=== PATIENT | male | born 1960 | race Caucasian/White ===

== ENCOUNTER → 2017-04-17 | Outpatient (CLI) | payer OTHER ==
[2017-01-07 09:04] VITALS: BP 167/92
[~2017-04-17] MED LIST: AMLO10TA2 PO; ATEN25TA PO; ATOR20TA58 PO; BIOF1TAB7 PO; DICL100G18 TP; DOCU-109 PO; DULO60CA6 PO; INSU100I13 SQ; INSU100I17 SQ; INSU100I27 SQ; LIDO700A4 TP; LORA-434 PO; MULT-245 PO; OMEG1CAP6 PO; OMEP20TA63 PO; OXYC20TA PO; PROAIR HFA8.5 GM IH; SITA50TA PO; TIZA4TAB PO; VENTOLIN HFA18 GM IH; ZOLP10TA4 PO
--- NOTE | 2017-04-17 13:36 | KCIC ---
MRI Lumbar Spine without contrast History: Chronic low back pain with bilateral sciatica, previous surgery, history of renal cancer Technique: Multiplanar, multi sequential noncontrast MR imaging was performed of the lumbar spine. Contrast: None Comparison: December 29, 2015 Findings: Lumbar vertebral body stature and AP alignment are unchanged. Conus again terminates at T12-L1. There is again mild disc desiccation greatest at L3-4 and L4-5. There is again large focus of marrow signal abnormality of the L2 vertebral body eccentric to the right, variably hyperintense on all sequences with associated trabecular thickening, overall features most compatible with a hemangioma. There is a small focus of edema of the anterior, superior right L3 endplate not present previously. L2-L3: Neural foramina and spinal canal are adequate. There is again negligible disc osteophyte complex and bulge. L3-L4: There is a minimal disc osteophyte complex and bulge, also shallow protrusion in the inferior left neural foramen and proximal left extraforaminal region. There is mild buckling of the ligamentum flavum. There is again mild narrowing of the far left lateral recess. There is overall mild narrowing of the inferior left neural foramen, disc osteophyte complex contacting the undersurface of the proximal extraforaminal left L3 nerve root without displacement. There is also mild narrowing of the right neural foramen with disc osteophyte complex again near the extraforaminal right L3 nerve root without significant displacement. L4-L5: There is now left laminectomy defect. There is minimal disc osteophyte complex and bulge. Spinal canal is now overall adequate. There is fairly severe narrowing of the left neural foramen by disc osteophyte complex as well as facet hypertrophic change, contact of the exiting left L4 nerve root. Disc osteophyte complex is also near the extraforaminal left L4 nerve root. There is moderate narrowing of the right neural foramen, disc osteophyte complex also near the undersurface of the extraforaminal right L4 nerve root without significant displacement. L5-S1: Spinal canal is adequate. There is very minimal disc osteophyte complex in the inferior left neural foramen. Neural foramina are overall adequate. There is mild facet hypertrophic change on the right. Impression: 1. There has been interval left laminectomy L4-5, spinal canal now overall adequate at this level. There is again mild narrowing of the far left lateral recess at L3-4. 2. There is left greater than right L4-5 neural foramina compromise, minimal narrowing bilaterally at L3-4. 3. There is multilevel lumbar facet degenerative change. 4. There is again a large hemangioma of the right L2 vertebral body. Just anteriorly, there is now small focus of nonspecific marrow edema although more likely to be reactive/degenerative in etiology given location along the endplate. Electronically signed by: Luis Carlos Mccall MD (04/17/2017 1:33 PM) [facility]
== END | disposition home or self-care (01) ==
LOC: KCIC MRI 12:12
PROVIDERS: ATTEND Family Medicine
DX: M54.42 Lumbago with sciatica, left side (principal); M54.41 Lumbago with sciatica, right side; D18.00 Hemangioma unspecified site; G89.29 Other chronic pain; Z85.528 Personal history of other malignant neoplasm of kidney
CPT/HCPCS: 72148

== ENCOUNTER 2018-01-05 14:57 | Emergency (ER) | payer MEDICARE, OTHER | END 2018-01-05 16:12 | disposition home or self-care (01) | LOC: ER 14:57 | DX: E11.649 Type 2 diabetes mellitus with hypoglycemia without coma (principal); E11.40 Type 2 diabetes mellitus with diabetic neuropathy, unspecified; E78.00 Pure hypercholesterolemia, unspecified; I10 Essential (primary) hypertension; Z88.1 Allergy status to other antibiotic agents; Z88.5 Allergy status to narcotic agent; Z88.8 Allergy status to other drugs, medicaments and biological substances | CPT/HCPCS: 99283 ==

== ENCOUNTER 2018-11-03 12:47 | Emergency (ER) | payer OTHER, MEDICARE ==
[~2018-11-03] VITALS: Ht 180.3 cm; Wt 111.6 kg
[~2018-11-03 12:47] MED LIST changes: +ALBU2.5V8 IH; -AMLO10TA2 PO; +AMLO10TA8 PO; +AMOX1TAB11 PO; +INSU100I32 SQ; +MONT10TA9 PO; +POLY17PO29 PO; -PROAIR HFA8.5 GM IH
[2018-11-03] MEDS ORDERED: diphenhydrAMINE 50 MG/ML VIAL IVP ONE (13:15)
[2018-11-03] MEDS ORDERED: METOCLOPRAMIDE HCL 10 MG/2 ML VIAL. IV ONE (13:15)
[2018-11-03] MEDS ORDERED: KETOROLAC 30 MG/ML VIAL. IV ONE (13:15)
[2018-11-03] MEDS ORDERED: IV DEXTROSE 5%-LACT RINGERS 1,000 ML IV ONE (13:15)
[2018-11-03 14:26] LABS: BASO % 0 % (0-3); EOS % 1 % (0-3); HEMATOCRIT 41.8 % (39.0-53.0); HEMOGLOBIN 13.9 g/dL (13.0-17.5); LYMPH # 0.9 x10^3/uL (1.0-4.8); LYMPH % 11 % (24-48); MEAN CORPUSCULAR HEMOGLOBIN 30 pg (25-35); MEAN CORPUSCULAR HGB CONC 33 g/dL (31-37); MEAN CORPUSCULAR VOLUME 90 fL (79-100); MONO # 0.4 x10^3/uL (0.0-1.1); MONO % 5 % (0-9); NEUT # 6.9 x10^3uL (1.8-7.7); NEUT % 83 % (31-73); PLATELET COUNT 217 x10^3/uL (140-400); RED BLOOD COUNT 4.64 x10^6/uL (4.30-5.70); RED CELL DISTRIBUTION WIDTH 14.8 % (11.5-14.5); WHITE BLOOD COUNT 8.3 x10^3/uL (4.0-11.0)
[2018-11-03 14:39] LABS: CALCIUM 8.8 mg/dL (8.5-10.1); CREATININE 1.6 mg/dL (0.7-1.3); GFR 44.5
[2018-11-03 14:44] LABS: ALBUMIN 3.6 g/dL (3.4-5.0); ALBUMIN/GLOBULIN RATIO 0.9 (1.0-1.7); TOTAL BILIRUBIN 0.6 mg/dL (0.2-1.0); TOTAL PROTEIN 7.6 g/dL (6.4-8.2)
[2018-11-03 14:53] VITALS: BP 153/74
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
[2018-11-03] MEDS ORDERED: METO10TA81 PO (15:03)
== END 2018-11-03 15:16 | disposition home or self-care (01) ==
LOC: ER 12:47
DX: G43.909 Migraine, unspecified, not intractable, without status migrainosus (principal); E11.649 Type 2 diabetes mellitus with hypoglycemia without coma; R41.0 Disorientation, unspecified; I10 Essential (primary) hypertension; E11.40 Type 2 diabetes mellitus with diabetic neuropathy, unspecified; Z90.89 Acquired absence of other organs; Z90.5 Acquired absence of kidney; Z88.1 Allergy status to other antibiotic agents; Z88.5 Allergy status to narcotic agent; Z88.8 Allergy status to other drugs, medicaments and biological substances; V43.52XA Car driver injured in collision with other type car in traffic accident, initial encounter; Y93.89 Activity, other specified; Y92.410 Unspecified street and highway as the place of occurrence of the external cause; Y99.8 Other external cause status
CPT/HCPCS: 36415; 80053; 82962; 85025; 96361; 96374; 96375; 99283; J1200; J1885; J2765

== ENCOUNTER 2020-03-15 19:07 | Inpatient (IN) | payer MEDICARE ==
[~2020-03-15] VITALS: Ht 175.3 cm; Wt 81.9 kg
[~2020-03-15 19:07] MED LIST changes: -DICL100G18 TP; +DICL100G54 TP; +METO10TA81 PO; +MONT10TA49 PO; -MONT10TA9 PO; -TIZA4TAB PO; +TIZA4TAB2 PO
--- NOTE | 2020-03-15 19:20 | PHYS DOC ---
Past Medical History Past Medical History: Bronchitis, Cancer, Diabetes-Type II, High Cholesterol, Hypertension, Other Additional Past Medical Histor: obesity,kidney ca,neuropathy,DDD,IRREG HEART BEAT Past Surgical History: Tonsillectomy, Other Additional Past Surgical Histo: Rt shoulder,carpal tunn,nephrectomy,hernia,nose,elbow,BACK, lt nephrectomy Smoking Status: Never Smoker Alcohol Use: None Drug Use: None General Adult HPI: HPI: Patient is a 59 year old male who presents with altered mental status. Patient's family found him in his room. Patient was found to have blood sugar in the 50s and was incontinent of urine and combative. Family notes progressive decline over the last month or so. Patient is encephalopathic and unable to answer questions. History, physical, review of systems limited by altered mental status. Patient given glucagon prior to arrival and blood sugar improved from 55-83 Review of Systems: Review of Systems: Review of systems unobtainable due to altered mental status. Heart Score: Risk Factors: Risk Factors: DM, Current or recent (<one month) smoker, HTN, HLP, family history of CAD, obesity. Risk Scores: Score 0 - 3: 2.5% MACE over next 6 weeks - Discharge Home Score 4 - 6: 20.3% MACE over next 6 weeks - Admit for Clinical Observation Score 7 - 10: 72.7% MACE over next 6 weeks - Early Invasive Strategies Current Medications: Current Medications Medications (Trade) Dose Ordered Sig/Tory Start Time Stop Time Status Last Admin Dose Admin Diphenhydramine HCl (Benadryl) 50 mg 1X ONCE 03/15/20 19:30 03/15/20 19:31 UNV Haloperidol Lactate (Haldol Inj) 5 mg 1X ONCE 03/15/20 19:30 03/15/20 19:31 UNV Lorazepam (Ativan Inj) 1 mg 1X ONCE 03/15/20 19:30 03/15/20 19:31 UNV Allergies: Allergies: Allergies Coded Allergies Type Severity Reaction Last Updated Verified clindamycin Allergy Intermediate 02/17/16 Yes levofloxacin Allergy Intermediate 01/06/17 Yes morphine Allergy Intermediate 02/17/16 Yes prednisone Allergy Intermediate 01/06/17 Yes pramipexole Adverse Reaction Intermediate 02/17/16 Yes Physical Exam: PE: Constitutional: Confused, combative, not following commands HENT: No trismus Eyes: Pupils equal and round, extraocular intact Neck: Normal range of motion, no tenderness, supple, no stridor. [] Cardiovascular: Tachycardic, cap refill intact, pulses intact Lungs & Thorax: No respiratory distress Abdomen: No distension : Incontinent of urine Skin: Jaundiced appearing, old bruising to the abdomen Back: Full ROM Extremities: Minimal lower extremity edema. Moves all extremities Neurologic: Oriented x0, moves all extremities, does not follow commands. Psychologic: Unable to assess due to altered mental status History, physical, review of systems limited by altered mental status Current Patient Data: Labs: Laboratory Tests Test 03/15/20 19:36 03/15/20 20:17 03/15/20 20:50 03/15/20 21:30 Glucose (Fingerstick) 85 mg/dL 80 mg/dL 62 mg/dL White Blood Count 17.2 x10^3/uL Red Blood Count 2.73 x10^6/uL Hemoglobin 8.2 g/dL Hematocrit 23.4 % Mean Corpuscular Volume 86 fL Mean Corpuscular Hemoglobin 30 pg Mean Corpuscular Hemoglobin Concent 35 g/dL Red Cell Distribution Width 16.9 % Platelet Count 244 x10^3/uL Neutrophils (%) (Auto) 97 % Lymphocytes (%) (Auto) 2 % Monocytes (%) (Auto) 2 % Eosinophils (%) (Auto) 0 % Basophils (%) (Auto) 0 % Neutrophils # (Auto) 16.6 x10^3/uL Lymphocytes # (Auto) 0.3 x10^3/uL Monocytes # (Auto) 0.3 x10^3/uL Eosinophils # (Auto) 0.0 x10^3/uL Basophils # (Auto) 0.0 x10^3/uL Segmented Neutrophils % 66 % Band Neutrophils % 23 % Lymphocytes % 9 % Monocytes % 2 % Toxic Vacuolation Slight Dohle Bodies Few Platelet Estimate Adequate Prothrombin Time 16.0 SEC Prothromb Time International Ratio 1.3 Activated Partial Thromboplast Time 32 SEC Sodium Level 123 mmol/L Potassium Level 4.7 mmol/L Chloride Level 87 mmol/L Carbon Dioxide Level 22 mmol/L Anion Gap 14 Blood Urea Nitrogen 49 mg/dL Creatinine 3.4 mg/dL Estimated GFR (Cockcroft-Gault) 18.6 BUN/Creatinine Ratio 14 Glucose Level 97 mg/dL Lactic Acid Level 3.8 mmol/L Calcium Level 7.7 mg/dL Magnesium Level 1.7 mg/dL Total Bilirubin 1.2 mg/dL Aspartate Amino Transf (AST/SGOT) 84 U/L Alanine Aminotransferase (ALT/SGPT) 66 U/L Alkaline Phosphatase 228 U/L Ammonia < 10 mcmol/L Creatine Kinase 129 U/L Troponin I Quantitative 0.052 ng/mL YN-Tia-V-Type Natriuretic Peptide 46567 pg/mL Total Protein 5.4 g/dL Albumin 1.7 g/dL Albumin/Globulin Ratio 0.5 Urine Collection Type U cath Urine Color Yellow Urine Clarity Cloudy Urine pH 5.0 Urine Specific [place] 1.010 Urine Protein 30 mg/dL Urine Glucose (UA) Negative mg/dL Urine Ketones (Stick) Negative mg/dL Urine Blood Trace Urine Nitrite Negative Urine Bilirubin Large Urine Urobilinogen Dipstick 1.0 mg/dL Urine Leukocyte Esterase Negative Urine RBC Occ /HPF Urine WBC Occ /HPF Urine Squamous Epithelial Cells Occ /LPF Urine Amorphous Sediment Present /HPF Urine Bacteria Few /HPF Urine Opiates Screen Neg Urine Methadone Screen Neg Urine Barbiturates Neg Urine Phencyclidine Screen Neg Urine Amphetamine/Methamphetamine Neg Urine Benzodiazepines Screen Neg Urine Cocaine Screen Neg Urine Cannabinoids Screen Neg Urine Ethyl Alcohol Neg Current Medications Medications (Trade) Dose Ordered Sig/Tory Route PRN Reason Start Time Stop Time Status Last Admin Dose Admin Haloperidol Lactate (Haldol Inj) 5 mg 1X ONCE IM 03/15/20 20:00 03/15/20 20:01 DC 03/15/20 19:30 Diphenhydramine HCl (Benadryl) 50 mg 1X ONCE IM 03/15/20 20:00 03/15/20 20:01 DC 03/15/20 19:30 Lorazepam (Ativan Inj) 1 mg 1X ONCE IVP 03/15/20 20:00 03/15/20 20:01 DC 03/15/20 20:55 Dextrose (Dextrose 50%-Water Syringe) 25 gm 1X ONCE IV 03/15/20 21:30 03/15/20 21:23 DC Dextrose 1,000 ml @ 75 mls/hr 1X ONCE IV 03/15/20 21:30 03/15/20 21:23 DC 03/15/20 21:03 Sodium Chloride 154 meq/Dextrose 1,038.5 ml @ 75 mls/hr [id number] IV 03/15/20 22:00 03/16/20 21:59 03/15/20 22:12 Ceftriaxone Sodium (Rocephin) 2 gm 1X ONCE IVP 03/15/20 22:00 03/15/20 22:01 DC Ondansetron HCl (Zofran) 4 mg PRN Q8HRS PRN IV NAUSEA/VOMITING 1ST CHOICE 03/15/20 21:30 03/16/20 21:29 Vital Signs: Vital Signs Date Time Temp Pulse Resp B/P (MAP) Pulse Ox O2 Delivery O2 Flow Rate FiO2 03/15/20 19:08 97.4 103 20 153/74 (100) 98 Room Air 97.4 EKG: EKG: [] EKG interpreted by me normal sinus rhythm with a rate of 96 left axis deviation normal intervals, inverted T waves in the lateral leads Radiology/Procedures: Radiology/Procedures: [][address] [id number] IMAGING REPORT Signed PATIENT: LASHAY MARQUEZ ACCOUNT: [id number] : 1960 LOCATION: ER AGE: 59 SEX: M EXAM STATUS: REG ER ORD. PHYSICIAN: CHARY KOEHLER MD REASON: AMS PROCEDURE: PORTABLE CHEST 1V Examination: PORTABLE CHEST 1V History: Reason: AMS / Spl. Instructions: / History: Comparison/Correlation: 01/06/2017 AP view of the chest Findings: Upright portable frontal view of chest was obtained. Limited pulmonary inflation noted. Heart size is mildly enlarged. Pulmonary vasculature is mildly congested. No pneumothorax. No definite effusion. Postoperative changes of proximal right humerus are partially seen. Impression: Mild congestive heart failure suspected. No focal infiltrate. Electronically signed by: Raciel Kwok MD (03/15/2020 8:27 PM) [facility] DICTATED and SIGNED BY: RACIEL KWOK MD DATE: 03/15/202026 [address] [id number] IMAGING REPORT Signed PATIENT: ALMATRELL MUROMATIAS Al ACCOUNT: [id number] : 1960 LOCATION: ER AGE: 59 SEX: M EXAM STATUS: REG ER ORD. PHYSICIAN: CHARY KOEHLER MD REASON: AMS PROCEDURE: CT HEAD WO CONTRAST EXAM: CT Head without IV contrast CLINICAL HISTORY: Altered mental status COMPARISON: None. TECHNIQUE: Routine CT of the head without contrast. Soft tissues and bone windows were reviewed. PQRS compliance statement - One or more of the following individualized dose reduction techniques were utilized for this study: 1. Automated exposure control 2. Adjustment of the mA and/or kV according to patient size 3. Use of iterative reconstruction technique FINDINGS: There is no evidence of hemorrhage, mass or extra-axial fluid collection. Price-white differentiation is maintained with no evidence of edema. A few subcortical and periventricular foci of white matter hypoattenuation likely changes of chronic small vessel disease. There is no mass effect or shift of the intracranial structures. There is prominence of the ventricles and sulci bilaterally consistent with generalized atrophy. The cerebellum and brainstem are unremarkable. The calvarium demonstrates no evidence of fracture or focal lesion. There is normal aeration of the visualized paranasal sinuses and mastoid air cells. The visualized portions of the orbits are normal. IMPRESSION: No evidence for acute intracranial process. Electronically signed by: Hieu Huerta MD (03/15/2020 8:48 PM) [facility] Course & Med Decision Making: Course & Med Decision Making Pertinent Labs and Imaging studies reviewed. (See chart for details) [] 2050 reassessment. Patient altered. Blood sugar 62. Initially D50 on a D10 drip was ordered. One sodium came back I switched over to a D10 normal saline drip at 75 cc an hour. Patient will be admitted to Dr. Adams I discussed the case with him. Consult with Dr. Manuel for renal management. 59-year-old male presents with hypoglycemia and altered mental status. Patient quite combative on arrival. Patient had to be placed in physical restraints. Patient medicated for his agitation. Examined after restraints and much calmer. No signs of injury. Patient's head CT is unremarkable. Patient does have significant hyponatremia and renal insufficiency. Patient also found to have CHF on x-ray. Patient's lactic acid elevation was likely due to liver disease as well as seizure. I feel due to his hyponatremia and CHF that aggressive septic fluid management would be extremely detrimental to this patient. Patient is placed on D10 NS at 75 cc/h. Patient will be admitted to the ICU with a nephrology consult. Critical care time was [40] minutes exclusive of procedures. Critical care time was [40] minutes which includes time at bedside, spent in discussion of patient's care with specialist and/or family members, with interpretation of laboratory and/or radiological studies and is exclusive of procedures. Critical condition, hyponatremia, seizure, hypoglycemia Critical interventions: D10 normal saline drip, dextrose replacement, antibiotics, admission ICU with consults with nephrology. Dragon Disclaimer: Dragon Disclaimer: This electronic medical record was generated, in whole or in part, using a voice recognition dictation system. Departure Departure Impression: Primary Impression: Hyponatremia Additional Impressions: Hypoglycemia Seizure Acute kidney injury Encephalopathy Disposition: ADMITTED INPATIENT Admitting Physician: DANIEL ([facility]) Condition: GUARDED Referrals: MARILOU LOPEZ MD (PCP) Justicifation of Admission Dx: Justifications for Admission: Justification of Admission Dx: Yes CHARY KOEHLER MD Mar 15, 2020 19:20
[2020-03-15] MEDS ORDERED: diphenhydrAMINE 50 MG/ML VIAL IM ONE (20:00)
[2020-03-15] MEDS ORDERED: HALOPERIDOL LACTATE 5 MG/ML VIAL. IM ONE (20:00)
--- NOTE | 2020-03-15 20:06 | EKG ---
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
[2020-03-15 20:29] LABS: BASO % 0 % (0-3); EOS % 0 % (0-3); HEMATOCRIT 23.4 % (39.0-53.0); HEMOGLOBIN 8.2 g/dL (13.0-17.5); LYMPH # 0.3 x10^3/uL (1.0-4.8); LYMPH % 2 % (24-48); MEAN CORPUSCULAR HEMOGLOBIN 30 pg (25-35); MEAN CORPUSCULAR HGB CONC 35 g/dL (31-37); MEAN CORPUSCULAR VOLUME 86 fL (79-100); MONO # 0.3 x10^3/uL (0.0-1.1); MONO % 2 % (0-9); NEUT # 16.6 x10^3/uL (1.8-7.7); NEUT % 97 % (31-73); PLATELET COUNT 244 x10^3/uL (140-400); RED BLOOD COUNT 2.73 x10^6/uL (4.30-5.70); RED CELL DISTRIBUTION WIDTH 16.9 % (11.5-14.5); WHITE BLOOD COUNT 17.2 x10^3/uL (4.0-11.0)
--- NOTE | 2020-03-15 20:30 | RAD ---
Examination: PORTABLE CHEST 1V History: Reason: AMS / Spl. Instructions: / History: Comparison/Correlation: 01/06/2017 AP view of the chest Findings: Upright portable frontal view of chest was obtained. Limited pulmonary inflation noted. Heart size is mildly enlarged. Pulmonary vasculature is mildly congested. No pneumothorax. No definite effusion. Postoperative changes of proximal right humerus are partially seen. Impression: Mild congestive heart failure suspected. No focal infiltrate. Electronically signed by: Raciel Guthrie MD (03/15/2020 8:27 PM) [facility]
[2020-03-15 20:42] LABS: CALCIUM 7.7 mg/dL (8.5-10.1); CREATININE 3.4 mg/dL (0.7-1.3); GFR 18.6; POTASSIUM 4.7 mmol/L (3.5-5.1)
[2020-03-15 20:48] LABS: ALBUMIN 1.7 g/dL (3.4-5.0); ALBUMIN/GLOBULIN RATIO 0.5 (1.0-1.7); MAGNESIUM 1.7 mg/dL (1.8-2.4); TOTAL BILIRUBIN 1.2 mg/dL (0.2-1.0); TOTAL PROTEIN 5.4 g/dL (6.4-8.2)
--- NOTE | 2020-03-15 20:51 | RAD ---
EXAM: CT Head without IV contrast CLINICAL HISTORY: Altered mental status COMPARISON: None. TECHNIQUE: Routine CT of the head without contrast. Soft tissues and bone windows were reviewed. PQRS compliance statement - One or more of the following individualized dose reduction techniques were utilized for this study: 1. Automated exposure control 2. Adjustment of the mA and/or kV according to patient size 3. Use of iterative reconstruction technique FINDINGS: There is no evidence of hemorrhage, mass or extra-axial fluid collection. Price-white differentiation is maintained with no evidence of edema. A few subcortical and periventricular foci of white matter hypoattenuation likely changes of chronic small vessel disease. There is no mass effect or shift of the intracranial structures. There is prominence of the ventricles and sulci bilaterally consistent with generalized atrophy. The cerebellum and brainstem are unremarkable. The calvarium demonstrates no evidence of fracture or focal lesion. There is normal aeration of the visualized paranasal sinuses and mastoid air cells. The visualized portions of the orbits are normal. IMPRESSION: No evidence for acute intracranial process. Electronically signed by: Hieu Huerta MD (03/15/2020 8:48 PM) [facility]
[2020-03-15 20:56] LABS: % BANDS 23 % (0-9); % LYMPHS 9 % (24-48); % MONOS 2 % (0-10); % SEGS 66 % (35-66); PLT ESTIMATE ADEQUATE (ADEQUATE); TOXIC VACUOLATION SLIGHT
[2020-03-15] MEDS ORDERED: ONDANSETRON PF 4 MG/2 ML VIAL. IV PRN (21:30)
[2020-03-15] MEDS ORDERED: IV DEXTROSE 10% 1,000 ML IV ONE (21:30)
[2020-03-15] MEDS ORDERED: DEXTROSE 50% 25 GM / 50ML DISP.SYRIN. IV ONE (21:30)
[2020-03-15 21:42] LABS: BILIRUBIN,URINE LARGE (NEG); CLARITY,URINE CLOUDY; COLOR,URINE YELLOW; NITRITE,URINE NEGATIVE (NEG); PROTEIN,URINE 30 mg/dL (NEG-TRACE)
[2020-03-15 21:55] LABS: RBC,URINE OCC /HPF (0-2); WBC,URINE OCC /HPF (0-4)
[2020-03-15 21:56] LABS: AMORPHOUS SEDIMENT,UR PRESENT /HPF; BACTERIA,URINE FEW /HPF (0-FEW); SQUAMOUS EPITHELIAL CELL,UR OCC /LPF
[2020-03-15 21:57] LABS: BARBITURATES NEG (NEG); BENZODIAZEPINES NEG (NEG); CANNABINOIDS NEG (NEG); COCAINE NEG (NEG); METHADONE NEG (NEG); OPIATES NEG (NEG); PHENCYCLIDINE NEG (NEG)
[2020-03-15 21:58] LABS: AMPHETAMINE/METHAMPHETAMINE NEG (NEG)
[2020-03-15] MEDS ORDERED: cefTRIAXone IV Push 1 GM VIAL. IVP ONE (22:00)
[2020-03-15] MEDS: DEXTROSE 10% IV SCH (22:12)
[2020-03-15] MEDS: SODIUM CHLORIDE IV SCH (22:12)
[2020-03-16] VITALS (11 sets, daily range): BP systolic 98–145; BP diastolic 48–80
--- NOTE | 2020-03-16 07:56 | PDOC1 ---
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 She notes he has had a progressive decline over the last month or so. Patient is encephalopathic and unable to answer questions. Patient given glucagon prior to arrival and blood sugar improved from 55-83. notes issues w/ confusion since cholecystectomy at on 12/25/19. notes an IR drain was placed after a readmission for worsening and remained in place for 3 weeks and was removed at the end of January, then he returned for common bile duct stent placement last week. She notes that she was told that he had a "small spot" on his liver at [facility] and that his sodium was "better" at 129 last week. She also notes he has lost 46# in the past 2 months and she is not aware of any diagnosis for him. Patient is not even speaking, he is moaning and writhing in bed. CXR with pulmonary vasculare congestion and CT head negative for acute process. Labs significant for WBC 17.2, Hb 8.2, platelets 244, INR 1.3, Na 123, K 4.7, BUN 49, Cr 3.4, Albumin 1.7, Glucose 97, Mg 1.7, AST 84, ALT 66, Alk phos 228, Bili 1.2. BNP 32697 Admitted to ICU for further care. Past Medical History Cardiovascular: HTN Pulmonary: Bronchitis Musculoskeletal: low back pain Renal/: Renal Ca. Endocrine: Diabetes Past Surgical History Past Surgical History: Cholecystectomy, Hernia Repair, Other Family History Family History: No Significant Social History Smoke: No ALCOHOL: none Drugs: None Current Problem List Problem List Problems Medical Problems: (1) Acute kidney injury Status: Acute (2) Encephalopathy Status: Acute (3) Hypoglycemia Status: Acute (4) Hyponatremia Status: Acute (5) Seizure Status: Acute Current Medications Current Medications Current Medications Haloperidol Lactate (Haldol Inj) 5 mg 1X ONCE IM Last administered on 03/15/20at 19:30; Start 03/15/20 at 20:00; Stop 03/15/20 at 20:01; Status DC Diphenhydramine HCl (Benadryl) 50 mg 1X ONCE IM Last administered on 03/15/20at 19:30; Start 03/15/20 at 20:00; Stop 03/15/20 at 20:01; Status DC Lorazepam (Ativan Inj) 1 mg 1X ONCE IVP Last administered on 03/15/20at 20:55; Start 03/15/20 at 20:00; Stop 03/15/20 at 20:01; Status DC Dextrose (Dextrose 50%-Water Syringe) 25 gm 1X ONCE IV ; Start 03/15/20 at 21:30; Stop 03/15/20 at 21:23; Status DC Dextrose 1,000 ml @ 75 mls/hr 1X ONCE IV Last administered on 03/15/20at 21:03; Start 03/15/20 at 21:30; Stop 03/15/20 at 21:23; Status DC Sodium Chloride 154 meq/Dextrose 1,038.5 ml @ 75 mls/hr [id number] IV Last admini stered on 03/15/20at 22:12; Start 03/15/20 at 22:00; Stop 03/16/20 at 21:59 Ceftriaxone Sodium (Rocephin) 2 gm 1X ONCE IVP Last administered on 03/15/20at 22:36; Start 03/15/20 at 22:00; Stop 03/15/20 at 22:01; Status DC Ondansetron HCl (Zofran) 4 mg PRN Q8HRS PRN IV NAUSEA/VOMITING 1ST CHOICE; Start 03/15/20 at 21:30; Stop 03/16/20 at 21:29 Lorazepam (Ativan Inj) 2 mg 1X ONCE IVP Last administered on 03/15/20at 23:37; Start 03/15/20 at 23:45; Stop 03/15/20 at 23:46; Status DC Lorazepam (Ativan Inj) 1 mg PRN Q4HRS PRN IVP ANXIETY / AGITATION Last administered on 03/16/20at 06:11; Start 03/16/20 at 03:15 Active Scripts Active Reglan (Metoclopramide Hcl) 10 Mg Tablet 1 Tab PO Q8HRS PRN Amox Tr-K Clv 875-125 Mg Tab (Amoxicillin/Potassium Clav) 1 Each Tablet 1 Tab PO BID Miralax (Polyethylene Glycol 3350) 17 Gm Powd.pack 1 Pkt PO PRN DAILY PRN Reported Montelukast Sodium Tablet (Montelukast Sodium) 10 Mg Tablet 10 Mg PO DAILY Basaglar Kwikpen U-100 (Insulin Glargine,Hum.rec.anlog) 100 Unit/1 Ml Insuln.pen 50 Unit SQ HS Prilosec Otc (Omeprazole Magnesium) 20 Mg Tablet.dr 1 Tab PO DAILY Novolog Flexpen (Insulin Aspart) 100 Unit/1 Ml Insuln.pen 1 Unit SQ 15-20 UNITS WITH MEALS TO MAX OF 80 UNITS DAILY Zolpidem Tartrate 10 Mg Tablet 1 Tab PO QHS PRN Atorvastatin Calcium 20 Mg Tablet 1 Tab PO DAILY Januvia (Sitagliptin Phosphate) 50 Mg Tablet 1 Tab PO DAILY Tizanidine Hcl 4 Mg Tablet 1 Tab PO Q6HRS PRN can have 1-2 tabs Lidoderm (Lidocaine) 700 Mg Adh..patch 1 Patch TP DAILY PRN Oxycodone Hcl 20 Mg Tablet 20 Mg PO TID PRN Ativan (Lorazepam) 1 Mg Tablet 1 Mg PO BID PRN Amlodipine Besylate 10 Mg Tablet 10 Mg PO DAILY Atenolol 25 Mg Tablet 1 Tab PO DAILY Voltaren (Diclofenac Sodium) 100 Gm Gel..gram. 1 Gm TP QID PRN Ventolin Hfa Inhaler (Albuterol Sulfate) 18 Gm Hfa.aer.ad 2 Puff IH PRN Q4-6HRS Cymbalta (Duloxetine Hcl) 60 Mg Capsule. 60 Mg PO BID Allergies Allergies: Coded Allergies: clindamycin (Verified Allergy, Intermediate, 02/17/16) levofloxacin (Verified Allergy, Intermediate, 01/06/17) morphine (Verified Allergy, Intermediate, 02/17/16) prednisone (Verified Allergy, Intermediate, 01/06/17) pramipexole (Verified Adverse Reaction, Intermediate, 02/17/16) muscle and joint aches ROS Review of System UNABLE TO OBTAIN DUE TO OBTUNDATION Physical Exam General: Alert, moderate distress, Other (Confused) HEENT: Atraumatic, PERRLA, EOMI, Mucous membr. moist/pink Lungs: Other (Bialteral basilar crackles) Heart: S1S2, RRR, no thrills, no rubs Abdomen: Normal bowel sounds, Soft, No hepatosplenomegaly, No masses, Other (diffusely tender) Male Genitals Exam: normal genitalia Rectal Exam: hemorrhoids Extremities: No clubbing, No cyanosis, No edema, Normal pulses, No tenderness/swelling Skin: No rashes, No breakdown, No significant lesion Neuro: Strength at 5/5 X4 ext, Normal tone, Sensation intact, Cranial nerves 3- 12 NL, Reflexes 2+ Psych/Mental Status: Other (Obtunded) Vitals Vitals Vital Signs Date Time Temp Pulse Resp B/P (MAP) Pulse Ox O2 Delivery O2 Flow Rate FiO2 03/15/20 23:35 24 16 97 03/15/20 19:08 97.4 153/74 (100) Room Air 97.4 Labs Labs Laboratory Tests Test 03/15/20 19:36 03/15/20 20:17 03/15/20 20:50 03/15/20 21:30 Glucose (Fingerstick) 85 mg/dL (70-99) 80 mg/dL (70-99) 62 mg/dL (70-99) White Blood Count 17.2 x10^3/uL (4.0-11.0) Red Blood Count 2.73 x10^6/uL (4.30-5.70) Hemoglobin 8.2 g/dL (13.0-17.5) Hematocrit 23.4 % (39.0-53.0) Mean Corpuscular Volume 86 fL (79-100) Mean Corpuscular Hemoglobin 30 pg (25-35) Mean Corpuscular Hemoglobin Concent 35 g/dL (31-37) Red Cell Distribution Width 16.9 % (11.5-14.5) Platelet Count 244 x10^3/uL (140-400) Neutrophils (%) (Auto) 97 % (31-73) Lymphocytes (%) (Auto) 2 % (24-48) Monocytes (%) (Auto) 2 % (0-9) Eosinophils (%) (Auto) 0 % (0-3) Basophils (%) (Auto) 0 % (0-3) Neutrophils # (Auto) 16.6 x10^3/uL (1.8-7.7) Lymphocytes # (Auto) 0.3 x10^3/uL (1.0-4.8) Monocytes # (Auto) 0.3 x10^3/uL (0.0-1.1) Eosinophils # (Auto) 0.0 x10^3/uL (0.0-0.7) Basophils # (Auto) 0.0 x10^3/uL (0.0-0.2) Segmented Neutrophils % 66 % (35-66) Band Neutrophils % 23 % (0-9) Lymphocytes % 9 % (24-48) Monocytes % 2 % (0-10) Toxic Vacuolation Slight Dohle Bodies Few Platelet Estimate Adequate (ADEQUATE) Prothrombin Time 16.0 SEC (11.7-14.0) Prothromb Time International Ratio 1.3 (0.8-1.1) Activated Partial Thromboplast Time 32 SEC (24-38) Sodium Level 123 mmol/L (136-145) Potassium Level 4.7 mmol/L (3.5-5.1) Chloride Level 87 mmol/L (98-107) Carbon Dioxide Level 22 mmol/L (21-32) Anion Gap 14 (6-14) Blood Urea Nitrogen 49 mg/dL (8-26) Creatinine 3.4 mg/dL (0.7-1.3) Estimated GFR (Cockcroft-Gault) 18.6 BUN/Creatinine Ratio 14 (6-20) Glucose Level 97 mg/dL (70-99) Lactic Acid Level 3.8 mmol/L (0.4-2.0) Calcium Level 7.7 mg/dL (8.5-10.1) Magnesium Level 1.7 mg/dL (1.8-2.4) Total Bilirubin 1.2 mg/dL (0.2-1.0) Aspartate Amino Transf (AST/SGOT) 84 U/L (15-37) Alanine Aminotransferase (ALT/SGPT) 66 U/L (16-63) Alkaline Phosphatase 228 U/L (46-116) Ammonia < 10 mcmol/L (11-34) Creatine Kinase 129 U/L (39-308) Troponin I Quantitative 0.052 ng/mL (0.000-0.055) ZZ-[id number]-X-Type Natriuretic Peptide 44338 pg/mL (0-124) Total Protein 5.4 g/dL (6.4-8.2) Albumin 1.7 g/dL (3.4-5.0) Albumin/Globulin Ratio 0.5 (1.0-1.7) Urine Collection Type U cath Urine Color Yellow Urine Clarity Cloudy Urine pH 5.0 (<5.0-8.0) Urine Specific Causey 1.010 (1.000-1.030) Urine Protein 30 mg/dL (NEG-TRACE) Urine Glucose (UA) Negative mg/dL (NEG) Urine Ketones (Stick) Negative mg/dL (NEG) Urine Blood Trace (NEG) Urine Nitrite Negative (NEG) Urine Bilirubin Large (NEG) Urine Urobilinogen Dipstick 1.0 mg/dL (0.2 mg/dL) Urine Leukocyte Esterase Negative (NEG) Urine RBC Occ /HPF (0-2) Urine WBC Occ /HPF (0-4) Urine Squamous Epithelial Cells Occ /LPF Urine Amorphous Sediment Present /HPF Urine Bacteria Few /HPF (0-FEW) Urine Opiates Screen Neg (NEG) Urine Methadone Screen Neg (NEG) Urine Barbiturates Neg (NEG) Urine Phencyclidine Screen Neg (NEG) Urine Amphetamine/Methamphetamine Neg (NEG) Urine Benzodiazepines Screen Neg (NEG) Urine Cocaine Screen Neg (NEG) Urine Cannabinoids Screen Neg (NEG) Urine Ethyl Alcohol Neg (NEG) Test 03/16/20 00:25 03/16/20 03:33 Lactic Acid Level 1.6 mmol/L (0.4-2.0) Glucose (Fingerstick) 76 mg/dL (70-99) Laboratory Tests Test 03/15/20 19:36 03/15/20 20:17 03/15/20 20:50 03/15/20 21:30 Glucose (Fingerstick) 85 mg/dL (70-99) 80 mg/dL (70-99) 62 mg/dL (70-99) White Blood Count 17.2 x10^3/uL (4.0-11.0) Red Blood Count 2.73 x10^6/uL (4.30-5.70) Hemoglobin 8.2 g/dL (13.0-17.5) Hematocrit 23.4 % (39.0-53.0) Mean Corpuscular Volume 86 fL (79-100) Mean Corpuscular Hemoglobin 30 pg (25-35) Mean Corpuscular Hemoglobin Concent 35 g/dL (31-37) Red Cell Distribution Width 16.9 % (11.5-14.5) Platelet Count 244 x10^3/uL (140-400) Neutrophils (%) (Auto) 97 % (31-73) Lymphocytes (%) (Auto) 2 % (24-48) Monocytes (%) (Auto) 2 % (0-9) Eosinophils (%) (Auto) 0 % (0-3) Basophils (%) (Auto) 0 % (0-3) Neutrophils # (Auto) 16.6 x10^3/uL (1.8-7.7) Lymphocytes # (Auto) 0.3 x10^3/uL (1.0-4.8) Monocytes # (Auto) 0.3 x10^3/uL (0.0-1.1) Eosinophils # (Auto) 0.0 x10^3/uL (0.0-0.7) Basophils # (Auto) 0.0 x10^3/uL (0.0-0.2) Segmented Neutrophils % 66 % (35-66) Band Neutrophils % 23 % (0-9) Lymphocytes % 9 % (24-48) Monocytes % 2 % (0-10) Toxic Vacuolation Slight Dohle Bodies Few Platelet Estimate Adequate (ADEQUATE) Prothrombin Time 16.0 SEC (11.7-14.0) Prothromb Time International Ratio 1.3 (0.8-1.1) Activated Partial Thromboplast Time 32 SEC (24-38) Sodium Level 123 mmol/L (136-145) Potassium Level 4.7 mmol/L (3.5-5.1) Chloride Level 87 mmol/L (98-107) Carbon Dioxide Level 22 mmol/L (21-32) Anion Gap 14 (6-14) Blood Urea Nitrogen 49 mg/dL (8-26) Creatinine 3.4 mg/dL (0.7-1.3) Estimated GFR (Cockcroft-Gault) 18.6 BUN/Creatinine Ratio 14 (6-20) Glucose Level 97 mg/dL (70-99) Lactic Acid Level 3.8 mmol/L (0.4-2.0) Calcium Level 7.7 mg/dL (8.5-10.1) Magnesium Level 1.7 mg/dL (1.8-2.4) Total Bilirubin 1.2 mg/dL (0.2-1.0) Aspartate Amino Transf (AST/SGOT) 84 U/L (15-37) Alanine Aminotransferase (ALT/SGPT) 66 U/L (16-63) Alkaline Phosphatase 228 U/L (46-116) Ammonia < 10 mcmol/L (11-34) Creatine Kinase 129 U/L (39-308) Troponin I Quantitative 0.052 ng/mL (0.000-0.055) [id number]-Type Natriuretic Peptide 76875 pg/mL (0-124) Total Protein 5.4 g/dL (6.4-8.2) Albumin 1.7 g/dL (3.4-5.0) Albumin/Globulin Ratio 0.5 (1.0-1.7) Urine Collection Type U cath Urine Color Yellow Urine Clarity Cloudy Urine pH 5.0 (<5.0-8.0) Urine Specific Causey 1.010 (1.000-1.030) Urine Protein 30 mg/dL (NEG-TRACE) Urine Glucose (UA) Negative mg/dL (NEG) Urine Ketones (Stick) Negative mg/dL (NEG) Urine Blood Trace (NEG) Urine Nitrite Negative (NEG) Urine Bilirubin Large (NEG) Urine Urobilinogen Dipstick 1.0 mg/dL (0.2 mg/dL) Urine Leukocyte Esterase Negative (NEG) Urine RBC Occ /HPF (0-2) Urine WBC Occ /HPF (0-4) Urine Squamous Epithelial Cells Occ /LPF Urine Amorphous Sediment Present /HPF Urine Bacteria Few /HPF (0-FEW) Urine Opiates Screen Neg (NEG) Urine Methadone Screen Neg (NEG) Urine Barbiturates Neg (NEG) Urine Phencyclidine Screen Neg (NEG) Urine Amphetamine/Methamphetamine Neg (NEG) Urine Benzodiazepines Screen Neg (NEG) Urine Cocaine Screen Neg (NEG) Urine Cannabinoids Screen Neg (NEG) Urine Ethyl Alcohol Neg (NEG) Test 03/16/20 00:25 03/16/20 03:33 Lactic Acid Level 1.6 mmol/L (0.4-2.0) Glucose (Fingerstick) 76 mg/dL (70-99) Images Images CXR: Upright portable frontal view of chest was obtained. Limited pulmonary inflation noted. Heart size is mildly enlarged. Pulmonary vasculature is mildly congested. No pneumothorax. No definite effusion. Postoperative changes of proximal right humerus are partially seen. Impression: Mild congestive heart failure suspected. No focal infiltrate. CT head: There is no evidence of hemorrhage, mass or extra-axial fluid collection. Price-white differentiation is maintained with no evidence of edema. A few subcortical and periventricular foci of white matter hypoattenuation likely changes of chronic small vessel disease. There is no mass effect or shift of the intracranial structures. There is prominence of the ventricles and sulci bilaterally consistent with generalized atrophy. The cerebellum and brainstem are unremarkable. The calvarium demonstrates no evidence of fracture or focal lesion. There is normal aeration of the visualized paranasal sinuses and mastoid air cells. The visualized portions of the orbits are normal. IMPRESSION: No evidence for acute intracranial process. VTE Prophylaxis Ordered VTE Prophylaxis Devices: Yes VTE Pharmacological Prophylaxi: Yes Assessment/Plan Assessment/Plan A/P: Acute encephalopathy - likely metabolic, will give prn haldol, benadryl, ativan. Due to his combative nature I have authorized soft 2 point restraints as redirection and chemical restraint are ineffective Hyponatremia - likely multifactorial, nutritional. Consult nephrology Acute hypoxia - related to fluid overload, no known h/o CHF per , but BNP very elevated, will consult cardiology for concern for acute CHF. trend troponin Abnormal CXR - appears to be fluid overload, concern for pneumonia COLBY - likely vasomotor nephropathy Hypoglycemia - improved, will decrease his insulin Urinary incontinence - likely from hypoglycemia, possible overflow incontinence. Monitor UOP Unintentional weight loss - concern for a malignancy, possibly of GI origin, w junior does not recall recent colonoscopy since his initial at age 49 Sepsis - leukocytosis, tachycardia, likely abdominal process, will obtain US, and CT abdomen if stable. F/u blood and urine cultures. 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
[2020-03-16] MEDS ORDERED: POLYETHYLENE GLYCOL 3350 17 GM PACKET. PO PRN (08:00)
[2020-03-16] MEDS ORDERED: DEXTROSE 50% 25 GM / 50ML DISP.SYRIN. IV PRN (08:00)
[2020-03-16] MEDS ORDERED: NON FORMULARY ITEM (Albuterol Sulfate (Ventolin Hfa Inhaler) 2 PUFF) IH SCH (08:00)
[2020-03-16] MEDS ORDERED: LIDOCAINE (700MG/PATCH) PATCH. TP PRN (08:00)
[2020-03-16] MEDS ORDERED: ALBUTEROL SULFATE 2.5 MG/3 ML NEBU. NEB PRN (08:30)
[2020-03-16] MEDS: DULoxetine HCL 30 MG CAPSULE.DR PO SCH ×2 (09:38→21:34)
[2020-03-16] MEDS: amLODIPine BESYLATE 10 MG TABLET PO SCH (09:39)
[2020-03-16] MEDS: LINAGLIPTIN 5 MG TABLET PO SCH (09:39)
[2020-03-16] MEDS: PANTOPRAZOLE 40 MG TABLET.DR. PO SCH (09:39)
[2020-03-16] MEDS: MONTELUKAST SODIUM 10 MG TABLET. PO SCH (09:40)
[2020-03-16] MEDS: HALOPERIDOL LACTATE 5 MG/ML VIAL. IVP PRN ×2 (10:50→18:15)
[2020-03-16] MEDS ORDERED: fentaNYL PF VIAL 100 MCG/2 ML VIAL IVP PRN (11:00)
[2020-03-16] MEDS: INSULIN LISPRO 300 UNITS/3 ML VIAL. SQ SCH ×3 (11:30→21:39)
[2020-03-16 11:49] LABS: CALCIUM 7.8 mg/dL (8.5-10.1); CREATININE 2.9 mg/dL (0.7-1.3); GFR 22.3; POTASSIUM 4.3 mmol/L (3.5-5.1)
[2020-03-16 11:52] LABS: BASO % 0 % (0-3); EOS # 0.2 x10^3/uL (0.0-0.7); EOS % 1 % (0-3); HEMATOCRIT 24.7 % (39.0-53.0); HEMOGLOBIN 8.4 g/dL (13.0-17.5); LYMPH # 0.2 x10^3/uL (1.0-4.8); LYMPH % 2 % (24-48); MEAN CORPUSCULAR HEMOGLOBIN 29 pg (25-35); MEAN CORPUSCULAR HGB CONC 34 g/dL (31-37); MEAN CORPUSCULAR VOLUME 86 fL (79-100); MONO # 0.3 x10^3/uL (0.0-1.1); MONO % 2 % (0-9); NEUT # 11.8 x10^3/uL (1.8-7.7); NEUT % 94 % (31-73); PLATELET COUNT 231 x10^3/uL (140-400); RED BLOOD COUNT 2.87 x10^6/uL (4.30-5.70); RED CELL DISTRIBUTION WIDTH 17.2 % (11.5-14.5); WHITE BLOOD COUNT 12.5 x10^3/uL (4.0-11.0)
[2020-03-16 11:55] LABS: ALBUMIN 1.6 g/dL (3.4-5.0); ALBUMIN/GLOBULIN RATIO 0.4 (1.0-1.7); MAGNESIUM 1.9 mg/dL (1.8-2.4); TOTAL BILIRUBIN 0.9 mg/dL (0.2-1.0); TOTAL PROTEIN 5.8 g/dL (6.4-8.2)
--- NOTE | 2020-03-16 12:09 | PDOC2 ---
CONSULT Date of Consult Date of Consult DATE: 03/16/20 TIME: 12:02 Reason for Consult Reason for Consult: COLBY AND LOW NA Referring Physician Referring Physician: SADIA Identification/Chief Complaint Chief Complaint CONFUSED Source Source: Chart review History of Present Illness Reason for Visit: THIS IS A 59 YR OLD WITH CONFUSION. NOTED TO BE INCONTINENT AND HYPOGLYCEMIC. PER FAMILY HAS BEEN CONFUSED FOR A MONTH OR SO. UNABLE TO GIVE ANY HX. LABS NOTABLE FOR LOW NA OF 123 AND COLBY WITH CR OF 3.4. HAS CKD WITH BASELINE CR OF 1.6-2.0. HX ALSO NOTED FOR L NEPHRECTOMY DUE TO RCCA. NO OTHER HX AVAILABLE. LEUCOCYTOSIS NOTED Past Medical History Cardiovascular: HTN Pulmonary: Bronchitis Musculoskeletal: low back pain Renal/: Chronic renal insuff, Renal Ca. Endocrine: Diabetes Past Surgical History Past Surgical History: Hernia Repair, Other Family History Family History: No Significant Social History ALCOHOL: none Drugs: None Current Problem List Problem List Problems Medical Problems: (1) Acute kidney injury Status: Acute (2) Encephalopathy Status: Acute (3) Hypoglycemia Status: Acute (4) Hyponatremia Status: Acute (5) Seizure Status: Acute Current Medications Current Medications Current Medications Haloperidol Lactate (Haldol Inj) 5 mg 1X ONCE IM Last administered on 03/15/20at 19:30; Start 03/15/20 at 20:00; Stop 03/15/20 at 20:01; Status DC Diphenhydramine HCl (Benadryl) 50 mg 1X ONCE IM Last administered on 03/15/20at 19:30; Start 03/15/20 at 20:00; Stop 03/15/20 at 20:01; Status DC Lorazepam (Ativan Inj) 1 mg 1X ONCE IVP Last administered on 03/15/20at 20:55; Start 03/15/20 at 20:00; Stop 03/15/20 at 20:01; Status DC Dextrose (Dextrose 50%-Water Syringe) 25 gm 1X ONCE IV ; Start 03/15/20 at 21:30; Stop 03/15/20 at 21:23; Status DC Dextrose 1,000 ml @ 75 mls/hr 1X ONCE IV Last administered on 03/15/20at 21:03; Start 03/15/20 at 21:30; Stop 03/15/20 at 21:23; Status DC Sodium Chloride 154 meq/Dextrose 1,038.5 ml @ 75 mls/hr [id number] IV Last administered on 03/15/20at 22:12; Start 03/15/20 at 22:00; Stop 03/16/20 at 21:59 Ceftriaxone Sodium (Rocephin) 2 gm 1X ONCE IVP Last administered on 03/15/20at 22:36; Start 03/15/20 at 22:00; Stop 03/15/20 at 22:01; Status DC Ondansetron HCl (Zofran) 4 mg PRN Q8HRS PRN IV NAUSEA/VOMITING 1ST CHOICE; Start 03/15/20 at 21:30; Stop 03/16/20 at 21:29 Lorazepam (Ativan Inj) 2 mg 1X ONCE IVP Last administered on 03/15/20at 23:37; Start 03/15/20 at 23:45; Stop 03/15/20 at 23:46; Status DC Lorazepam (Ativan Inj) 1 mg PRN Q4HRS PRN IVP ANXIETY / AGITATION Last administered on 03/16/20at 06:11; Start 03/16/20 at 03:15 Amlodipine Besylate (Norvasc) 10 mg DAILY PO Last administered on 03/16/20at 09:39; Start 03/16/20 at 09:00 Atorvastatin Calcium (Lipitor) 20 mg QHS PO ; Start 03/16/20 at 21:00 Diclofenac Sodium (Voltaren) 1 rama PRN QID PRN TP PAIN; Start 03/16/20 at 08:00 Lidocaine (Lidoderm) 1 patch PRN DAILY PRN TP TOPICAL PAIN; Start 03/16/20 at 08:00 Montelukast Sodium (Singulair) 10 mg DAILY PO Last administered on 03/16/20at 09:40; Start 03/16/20 at 09:00 Polyethylene Glycol (miraLAX PACKET) 17 gm PRN DAILY PRN PO CONSTIPATION; Start 03/16/20 at 08:00 Non-Formulary Medication (Albuterol Sulfate (Ventolin Hfa Inhaler)) 2 puff PRN Q4-6HRS IH ; Start 03/16/20 at 08:00; Status UNV Duloxetine HCl (Cymbalta) 60 mg BID PO Last administered on 03/16/20at 09:38; Start 03/16/20 at 09:00 Insulin Glargine (Lantus Syringe) 10 unit QHS SQ ; Start 03/16/20 at 21:00 Pantoprazole Sodium (Protonix) 40 mg DAILYAC PO Last administered on 03/16/20at 09:39; Start 03/16/20 at 08:30 Linagliptin (Tradjenta) 5 mg DAILY PO Last administered on 03/16/20at 09:39; Start 03/16/20 at 09:00 Insulin Human Lispro (HumaLOG) 0-7 UNITS TIDACHC SQ ; Start 03/16/20 at 11:30 Dextrose (Dextrose 50%-Water Syringe) 12.5 gm PRN Q15MIN PRN IV SEE COMMENTS; Start 03/16/20 at 08:00 Albuterol Sulfate (Ventolin Neb Soln) 2.5 mg PRN Q4HRS PRN NEB SHORTNESS OF BR EATH; Start 03/16/20 at 08:30 Haloperidol Lactate (Haldol Inj) 5 mg PRN Q6HRS PRN IVP AGITATION Last administered on 03/16/20at 10:50; Start 03/16/20 at 10:45 Fentanyl Citrate (Fentanyl 2ml Vial) 25 mcg PRN Q3HRS PRN IVP MOD-SEVERE PAIN; Start 03/16/20 at 11:00 Active Scripts Active Reglan (Metoclopramide Hcl) 10 Mg Tablet 1 Tab PO Q8HRS PRN Amox Tr-K Clv 875-125 Mg Tab (Amoxicillin/Potassium Clav) 1 Each Tablet 1 Tab PO BID Miralax (Polyethylene Glycol 3350) 17 Gm Powd.pack 1 Pkt PO PRN DAILY PRN Reported Montelukast Sodium Tablet (Montelukast Sodium) 10 Mg Tablet 10 Mg PO DAILY Basaglar Kwikpen U-100 (Insulin Glargine,Hum.rec.anlog) 100 Unit/1 Ml Insuln.pen 50 Unit SQ HS Prilosec Otc (Omeprazole Magnesium) 20 Mg Tablet.dr 1 Tab PO DAILY Novolog Flexpen (Insulin Aspart) 100 Unit/1 Ml Insuln.pen 1 Unit SQ 15-20 UNITS WITH MEALS TO MAX OF 80 UNITS DAILY Zolpidem Tartrate 10 Mg Tablet 1 Tab PO QHS PRN Atorvastatin Calcium 20 Mg Tablet 1 Tab PO DAILY Januvia (Sitagliptin Phosphate) 50 Mg Tablet 1 Tab PO DAILY Tizanidine Hcl 4 Mg Tablet 1 Tab PO Q6HRS PRN can have 1-2 tabs Lidoderm (Lidocaine) 700 Mg Adh..patch 1 Patch TP DAILY PRN Oxycodone Hcl 20 Mg Tablet 20 Mg PO TID PRN Ativan (Lorazepam) 1 Mg Tablet 1 Mg PO BID PRN Amlodipine Besylate 10 Mg Tablet 10 Mg PO DAILY Atenolol 25 Mg Tablet 1 Tab PO DAILY Voltaren (Diclofenac Sodium) 100 Gm Gel..gram. 1 Gm TP QID PRN Ventolin Hfa Inhaler (Albuterol Sulfate) 18 Gm Hfa.aer.ad 2 Puff IH PRN Q4-6HRS Cymbalta (Duloxetine Hcl) 60 Mg Capsule.dr 60 Mg PO BID Allergies Allergies: Coded Allergies: clindamycin (Verified Allergy, Intermediate, 02/17/16) levofloxacin (Verified Allergy, Intermediate, 01/06/17) morphine (Verified Allergy, Intermediate, 02/17/16) prednisone (Verified Allergy, Intermediate, 01/06/17) pramipexole (Verified Adverse Reaction, Intermediate, 02/17/16) muscle and joint aches ROS Review of System UNABLE TO USE Physical Exam General: No acute distress, Other (CONFUSED) HEENT: Atraumatic, Other (DRY MUCOSA) Lungs: Clear to auscultation Heart: Normal S1 Abdomen: Normal bowel sounds, Soft, No tenderness Extremities: No cyanosis Skin: No breakdown Neuro: Other (CONFUSED) Psych/Mental Status: Other (CONFUSED, NO ASYMMETRY) MUSCULOSKELETAL: No joint tenderness, No deformity Vitals VITALS Vital Signs Date Time Temp Pulse Resp B/P (MAP) Pulse Ox O2 Delivery O2 Flow Rate FiO2 03/16/20 11:00 107 26 114/80 (91) 97 Room Air 03/16/20 08:00 98.4 98.4 Labs Labs Laboratory Tests Test 03/15/20 19:36 03/15/20 20:17 03/15/20 20:50 03/15/20 21:30 Glucose (Fingerstick) 85 mg/dL (70-99) 80 mg/dL (70-99) 62 mg/dL (70-99) White Blood Count 17.2 x10^3/uL (4.0-11.0) Red Blood Count 2.73 x10^6/uL (4.30-5.70) Hemoglobin 8.2 g/dL (13.0-17.5) Hematocrit 23.4 % (39.0-53.0) Mean Corpuscular Volume 86 fL (79-100) Mean Corpuscular Hemoglobin 30 pg (25-35) Mean Corpuscular Hemoglobin Concent 35 g/dL (31-37) Red Cell Distribution Width 16.9 % (11.5-14.5) Platelet Count 244 x10^3/uL (140-400) Neutrophils (%) (Auto) 97 % (31-73) Lymphocytes (%) (Auto) 2 % (24-48) Monocytes (%) (Auto) 2 % (0-9) Eosinophils (%) (Auto) 0 % (0-3) Basophils (%) (Auto) 0 % (0-3) Neutrophils # (Auto) 16.6 x10^3/uL (1.8-7.7) Lymphocytes # (Auto) 0.3 x10^3/uL (1.0-4.8) Monocytes # (Auto) 0.3 x10^3/uL (0.0-1.1) Eosinophils # (Auto) 0.0 x10^3/uL (0.0-0.7) Basophils # (Auto) 0.0 x10^3/uL (0.0-0.2) Segmented Neutrophils % 66 % (35-66) Band Neutrophils % 23 % (0-9) Lymphocytes % 9 % (24-48) Monocytes % 2 % (0-10) Toxic Vacuolation Slight Dohle Bodies Few Platelet Estimate Adequate (ADEQUATE) Prothrombin Time 16.0 SEC (11.7-14.0) Prothromb Time International Ratio 1.3 (0.8-1.1) Activated Partial Thromboplast Time 32 SEC (24-38) Sodium Level 123 mmol/L (136-145) Potassium Level 4.7 mmol/L (3.5-5.1) Chloride Level 87 mmol/L (98-107) Carbon Dioxide Level 22 mmol/L (21-32) Anion Gap 14 (6-14) Blood Urea Nitrogen 49 mg/dL (8-26) Creatinine 3.4 mg/dL (0.7-1.3) Estimated GFR (Cockcroft-Gault) 18.6 BUN/Creatinine Ratio 14 (6-20) Glucose Level 97 mg/dL (70-99) Lactic Acid Level 3.8 mmol/L (0.4-2.0) Calcium Level 7.7 mg/dL (8.5-10.1) Magnesium Level 1.7 mg/dL (1.8-2.4) Total Bilirubin 1.2 mg/dL (0.2-1.0) Aspartate Amino Transf (AST/SGOT) 84 U/L (15-37) Alanine Aminotransferase (ALT/SGPT) 66 U/L (16-63) Alkaline Phosphatase 228 U/L (46-116) Ammonia < 10 mcmol/L (11-34) Creatine Kinase 129 U/L (39-308) Troponin I Quantitative 0.052 ng/mL (0.000-0.055) YG-Etx-Q-Type Natriuretic Peptide 54786 pg/mL (0-124) Total Protein 5.4 g/dL (6.4-8.2) Albumin 1.7 g/dL (3.4-5.0) Albumin/Globulin Ratio 0.5 (1.0-1.7) Urine Collection Type U cath Urine Color Yellow Urine Clarity Cloudy Urine pH 5.0 (<5.0-8.0) Urine Specific [place] 1.010 (1.000-1.030) Urine Protein 30 mg/dL (NEG-TRACE) Urine Glucose (UA) Negative mg/dL (NEG) Urine Ketones (Stick) Negative mg/dL (NEG) Urine Blood Trace (NEG) Urine Nitrite Negative (NEG) Urine Bilirubin Large (NEG) Urine Urobilinogen Dipstick 1.0 mg/dL (0.2 mg/dL) Urine Leukocyte Esterase Negative (NEG) Urine RBC Occ /HPF (0-2) Urine WBC Occ /HPF (0-4) Urine Squamous Epithelial Cells Occ /LPF Urine Amorphous Sediment Present /HPF Urine Bacteria Few /HPF (0-FEW) Urine Opiates Screen Neg (NEG) Urine Methadone Screen Neg (NEG) Urine Barbiturates Neg (NEG) Urine Phencyclidine Screen Neg (NEG) Urine Amphetamine/Methamphetamine Neg (NEG) Urine Benzodiazepines Screen Neg (NEG) Urine Cocaine Screen Neg (NEG) Urine Cannabinoids Screen Neg (NEG) Urine Ethyl Alcohol Neg (NEG) Test 03/16/20 00:25 03/16/20 03:33 03/16/20 07:56 03/16/20 11:28 Lactic Acid Level 1.6 mmol/L (0.4-2.0) Glucose (Fingerstick) 76 mg/dL (70-99) 88 mg/dL (70-99) Sodium Level 129 mmol/L (136-145) Potassium Level 4.3 mmol/L (3.5-5.1) Chloride Level 94 mmol/L (98-107) Carbon Dioxide Level 26 mmol/L (21-32) Anion Gap 9 (6-14) Blood Urea Nitrogen 43 mg/dL (8-26) Creatinine 2.9 mg/dL (0.7-1.3) Estimated GFR (Cockcroft-Gault) 22.3 BUN/Creatinine Ratio 15 (6-20) Glucose Level 126 mg/dL (70-99) Calcium Level 7.8 mg/dL (8.5-10.1) Magnesium Level 1.9 mg/dL (1.8-2.4) Total Bilirubin 0.9 mg/dL (0.2-1.0) Aspartate Amino Transf (AST/SGOT) 64 U/L (15-37) Alanine Aminotransferase (ALT/SGPT) 61 U/L (16-63) Alkaline Phosphatase 226 U/L (46-116) Total Protein 5.8 g/dL (6.4-8.2) Albumin 1.6 g/dL (3.4-5.0) Albumin/Globulin Ratio 0.4 (1.0-1.7) Laboratory Tests Test 03/15/20 19:36 03/15/20 20:17 03/15/20 20:50 03/15/20 21:30 Glucose (Fingerstick) 85 mg/dL (70-99) 80 mg/dL (70-99) 62 mg/dL (70-99) White Blood Count 17.2 x10^3/uL (4.0-11.0) Red Blood Count 2.73 x10^6/uL (4.30-5.70) Hemoglobin 8.2 g/dL (13.0-17.5) Hematocrit 23.4 % (39.0-53.0) Mean Corpuscular Volume 86 fL (79-100) Mean Corpuscular Hemoglobin 30 pg (25-35) Mean Corpuscular Hemoglobin Concent 35 g/dL (31-37) Red Cell Distribution Width 16.9 % (11.5-14.5) Platelet Count 244 x10^3/uL (140-400) Neutrophils (%) (Auto) 97 % (31-73) Lymphocytes (%) (Auto) 2 % (24-48) Monocytes (%) (Auto) 2 % (0-9) Eosinophils (%) (Auto) 0 % (0-3) Basophils (%) (Auto) 0 % (0-3) Neutrophils # (Auto) 16.6 x10^3/uL (1.8-7.7) Lymphocytes # (Auto) 0.3 x10^3/uL (1.0-4.8) Monocytes # (Auto) 0.3 x10^3/uL (0.0-1.1) Eosinophils # (Auto) 0.0 x10^3/uL (0.0-0.7) Basophils # (Auto) 0.0 x10^3/uL (0.0-0.2) Segmented Neutrophils % 66 % (35-66) Band Neutrophils % 23 % (0-9) Lymphocytes % 9 % (24-48) Monocytes % 2 % (0-10) Toxic Vacuolation Slight Dohle Bodies Few Platelet Estimate Adequate (ADEQUATE) Prothrombin Time 16.0 SEC (11.7-14.0) Prothromb Time International Ratio 1.3 (0.8-1.1) Activated Partial Thromboplast Time 32 SEC (24-38) Sodium Level 123 mmol/L (136-145) Potassium Level 4.7 mmol/L (3.5-5.1) Chloride Level 87 mmol/L (98-107) Carbon Dioxide Level 22 mmol/L (21-32) Anion Gap 14 (6-14) Blood Urea Nitrogen 49 mg/dL (8-26) Creatinine 3.4 mg/dL (0.7-1.3) Estimated GFR (Cockcroft-Gault) 18.6 BUN/Creatinine Ratio 14 (6-20) Glucose Level 97 mg/dL (70-99) Lactic Acid Level 3.8 mmol/L (0.4-2.0) Calcium Level 7.7 mg/dL (8.5-10.1) Magnesium Level 1.7 mg/dL (1.8-2.4) Total Bilirubin 1.2 mg/dL (0.2-1.0) Aspartate Amino Transf (AST/SGOT) 84 U/L (15-37) Alanine Aminotransferase (ALT/SGPT) 66 U/L (16-63) Alkaline Phosphatase 228 U/L (46-116) Ammonia < 10 mcmol/L (11-34) Creatine Kinase 129 U/L (39-308) Troponin I Quantitative 0.052 ng/mL (0.000-0.055) HN-Ogt-M-Type Natriuretic Peptide 11368 pg/mL (0-124) Total Protein 5.4 g/dL (6.4-8.2) Albumin 1.7 g/dL (3.4-5.0) Albumin/Globulin Ratio 0.5 (1.0-1.7) Urine Collection Type U cath Urine Color Yellow Urine Clarity Cloudy Urine pH 5.0 (<5.0-8.0) Urine Specific [place] 1.010 (1.000-1.030) Urine Protein 30 mg/dL (NEG-TRACE) Urine Glucose (UA) Negative mg/dL (NEG) Urine Ketones (Stick) Negative mg/dL (NEG) Urine Blood Trace (NEG) Urine Nitrite Negative (NEG) Urine Bilirubin Large (NEG) Urine Urobilinogen Dipstick 1.0 mg/dL (0.2 mg/dL) Urine Leukocyte Esterase Negative (NEG) Urine RBC Occ /HPF (0-2) Urine WBC Occ /HPF (0-4) Urine Squamous Epithelial Cells Occ /LPF Urine Amorphous Sediment Present /HPF Urine Bacteria Few /HPF (0-FEW) Urine Opiates Screen Neg (NEG) Urine Methadone Screen Neg (NEG) Urine Barbiturates Neg (NEG) Urine Phencyclidine Screen Neg (NEG) Urine Amphetamine/Methamphetamine Neg (NEG) Urine Benzodiazepines Screen Neg (NEG) Urine Cocaine Screen Neg (NEG) Urine Cannabinoids Screen Neg (NEG) Urine Ethyl Alcohol Neg (NEG) Test 03/16/20 00:25 03/16/20 03:33 03/16/20 07:56 03/16/20 11:28 Lactic Acid Level 1.6 mmol/L (0.4-2.0) Glucose (Fingerstick) 76 mg/dL (70-99) 88 mg/dL (70-99) Sodium Level 129 mmol/L (136-145) Potassium Level 4.3 mmol/L (3.5-5.1) Chloride Level 94 mmol/L (98-107) Carbon Dioxide Level 26 mmol/L (21-32) Anion Gap 9 (6-14) Blood Urea Nitrogen 43 mg/dL (8-26) Creatinine 2.9 mg/dL (0.7-1.3) Estimated GFR (Cockcroft-Gault) 22.3 BUN/Creatinine Ratio 15 (6-20) Glucose Level 126 mg/dL (70-99) Calcium Level 7.8 mg/dL (8.5-10.1) Magnesium Level 1.9 mg/dL (1.8-2.4) Total Bilirubin 0.9 mg/dL (0.2-1.0) Aspartate Amino Transf (AST/SGOT) 64 U/L (15-37) Alanine Aminotransferase (ALT/SGPT) 61 U/L (16-63) Alkaline Phosphatase 226 U/L (46-116) Total Protein 5.8 g/dL (6.4-8.2) Albumin 1.6 g/dL (3.4-5.0) Albumin/Globulin Ratio 0.4 (1.0-1.7) Assessment/Plan Assessment/Plan IMP COLBY CR OF 3.4 CKD STAGE 3 WITH CR OF 1.6-2.0 AT BASELINE HYPONATREMIA HYPOGLYCEMIA MET ENCEPHALOPATHY LEUCOCYTOSIS PLAN HYDRATE WITH D10 NS D/W ER PHYSICIAN REPEAT LABS URINE STUDIES IF NEEDED MAY NEED NUTRITIONAL SUPPORT CONSIDER EMPIRIC ANTIBIOTICS WILL FOLLOW NADIR REILLY MD Mar 16, 2020 12:08
[2020-03-16] MEDS ORDERED: ETOD400T PO (12:15)
[2020-03-16] MEDS ORDERED: ONDA8TAB17 PO (12:15)
[2020-03-16] MEDS ORDERED: OXYC15TA3 PO (12:15)
[2020-03-16] MEDS: DEXTROSE 10% IV SCH (12:30)
[2020-03-16] MEDS: SODIUM CHLORIDE IV SCH (12:30)
--- NOTE | 2020-03-16 13:10 | PDOC2 ---
GI CONSULT Reason For Consult: post jonelle transaminitis HPI: HPI: 59 y/o male to ER yesterday w/ AMS - per other notes, found at home in room incontinent of urine, hypoglycemic. Apparently issues w/ confusion since cholecystectomy at on 12/25/19. Per nurse d/w , "drain" placed ~3 weeks after surgery, then "stent" placed ~1 week ago. ?bile leak Reported h/o hyponatremia per labs at . Was in restraints in ICU earlier. Still confused, trying to get out of bed, requiring 1:1 sitter. records requested. We saw here in 2018 for typhilitis/pneumatosis. Per last encounter - h/o dyspepsia improved w/ omeprazole PRN. No previous EGD. Intermittent constipation attributed to oxycodone and improved w/ Miralax PRN. Reportedly had normal colonoscopy w/ Dr. Mathis @ [facility] in ~2012. Denies liver and pancreas history then. PMH: PMH: HTN, DM, HLD, DDD, anxiety, RCC s/p left nephrectomy, CKD, sinusitis tonsillectomy, bilateral shoulder surgeries, bilateral CTR, bilateral elbow surgeries, back surgery, left knee surgery, umbilical and ventral hernia repairs w/ mesh FH: Family History: No pertinent hx Social History: ALCOHOL: none Drugs: None ROS: GEN: Denies fevers, chills, sweats HEENT: Denies blurred vision, sore throat CV: Denies chest pain RESP: Denies shortness of air, cough GI: Per HPI : Denies hematuria, dysuria ENDO: Denies weight changes NEURO: Denies confusion, dizziness MSK: Denies weakness, joint pain/swelling SKIN: Denies jaundice, pruritus Vitals: Vitals: Vital Signs Date Time Temp Pulse Resp B/P (MAP) Pulse Ox O2 Delivery O2 Flow Rate FiO2 03/16/20 12:46 100 Room Air 03/16/20 12:33 22 03/16/20 12:00 99.4 103 98/56 (70) 99.4 Labs: Labs: Laboratory Tests Test 03/15/20 19:36 03/15/20 20:17 03/15/20 20:50 03/15/20 21:30 Glucose (Fingerstick) 85 mg/dL (70-99) 80 mg/dL (70-99) 62 mg/dL (70-99) White Blood Count 17.2 x10^3/uL (4.0-11.0) Red Blood Count 2.73 x10^6/uL (4.30-5.70) Hemoglobin 8.2 g/dL (13.0-17.5) Hematocrit 23.4 % (39.0-53.0) Mean Corpuscular Volume 86 fL (79-100) Mean Corpuscular Hemoglobin 30 pg (25-35) Mean Corpuscular Hemoglobin Concent 35 g/dL (31-37) Red Cell Distribution Width 16.9 % (11.5-14.5) Platelet Count 244 x10^3/uL (140-400) Neutrophils (%) (Auto) 97 % (31-73) Lymphocytes (%) (Auto) 2 % (24-48) Monocytes (%) (Auto) 2 % (0-9) Eosinophils (%) (Auto) 0 % (0-3) Basophils (%) (Auto) 0 % (0-3) Neutrophils # (Auto) 16.6 x10^3/uL (1.8-7.7) Lymphocytes # (Auto) 0.3 x10^3/uL (1.0-4.8) Monocytes # (Auto) 0.3 x10^3/uL (0.0-1.1) Eosinophils # (Auto) 0.0 x10^3/uL (0.0-0.7) Basophils # (Auto) 0.0 x10^3/uL (0.0-0.2) Segmented Neutrophils % 66 % (35-66) Band Neutrophils % 23 % (0-9) Lymphocytes % 9 % (24-48) Monocytes % 2 % (0-10) Toxic Vacuolation Slight Dohle Bodies Few Platelet Estimate Adequate (ADEQUATE) Prothrombin Time 16.0 SEC (11.7-14.0) Prothromb Time International Ratio 1.3 (0.8-1.1) Activated Partial Thromboplast Time 32 SEC (24-38) Sodium Level 123 mmol/L (136-145) Potassium Level 4.7 mmol/L (3.5-5.1) Chloride Level 87 mmol/L (98-107) Carbon Dioxide Level 22 mmol/L (21-32) Anion Gap 14 (6-14) Blood Urea Nitrogen 49 mg/dL (8-26) Creatinine 3.4 mg/dL (0.7-1.3) Estimated GFR (Cockcroft-Gault) 18.6 BUN/Creatinine Ratio 14 (6-20) Glucose Level 97 mg/dL (70-99) Lactic Acid Level 3.8 mmol/L (0.4-2.0) Calcium Level 7.7 mg/dL (8.5-10.1) Magnesium Level 1.7 mg/dL (1.8-2.4) Total Bilirubin 1.2 mg/dL (0.2-1.0) Aspartate Amino Transf (AST/SGOT) 84 U/L (15-37) Alanine Aminotransferase (ALT/SGPT) 66 U/L (16-63) Alkaline Phosphatase 228 U/L (46-116) Ammonia < 10 mcmol/L (11-34) Creatine Kinase 129 U/L (39-308) Troponin I Quantitative 0.052 ng/mL (0.000-0.055) TB-Unl-I-Type Natriuretic Peptide 26111 pg/mL (0-124) Total Protein 5.4 g/dL (6.4-8.2) Albumin 1.7 g/dL (3.4-5.0) Albumin/Globulin Ratio 0.5 (1.0-1.7) Urine Collection Type U cath Urine Color Yellow Urine Clarity Cloudy Urine pH 5.0 (<5.0-8.0) Urine Specific [place] 1.010 (1.000-1.030) Urine Protein 30 mg/dL (NEG-TRACE) Urine Glucose (UA) Negative mg/dL (NEG) Urine Ketones (Stick) Negative mg/dL (NEG) Urine Blood Trace (NEG) Urine Nitrite Negative (NEG) Urine Bilirubin Large (NEG) Urine Urobilinogen Dipstick 1.0 mg/dL (0.2 mg/dL) Urine Leukocyte Esterase Negative (NEG) Urine RBC Occ /HPF (0-2) Urine WBC Occ /HPF (0-4) Urine Squamous Epithelial Cells Occ /LPF Urine Amorphous Sediment Present /HPF Urine Bacteria Few /HPF (0-FEW) Urine Opiates Screen Neg (NEG) Urine Methadone Screen Neg (NEG) Urine Barbiturates Neg (NEG) Urine Phencyclidine Screen Neg (NEG) Urine Amphetamine/Methamphetamine Neg (NEG) Urine Benzodiazepines Screen Neg (NEG) Urine Cocaine Screen Neg (NEG) Urine Cannabinoids Screen Neg (NEG) Urine Ethyl Alcohol Neg (NEG) Test 03/16/20 00:25 03/16/20 03:33 03/16/20 07:56 03/16/20 11:28 Lactic Acid Level 1.6 mmol/L (0.4-2.0) Glucose (Fingerstick) 76 mg/dL (70-99) 88 mg/dL (70-99) Sodium Level 129 mmol/L (136-145) Potassium Level 4.3 mmol/L (3.5-5.1) Chloride Level 94 mmol/L (98-107) Carbon Dioxide Level 26 mmol/L (21-32) Anion Gap 9 (6-14) Blood Urea Nitrogen 43 mg/dL (8-26) Creatinine 2.9 mg/dL (0.7-1.3) Estimated GFR (Cockcroft-Gault) 22.3 BUN/Creatinine Ratio 15 (6-20) Glucose Level 126 mg/dL (70-99) Calcium Level 7.8 mg/dL (8.5-10.1) Magnesium Level 1.9 mg/dL (1.8-2.4) Total Bilirubin 0.9 mg/dL (0.2-1.0) Aspartate Amino Transf (AST/SGOT) 64 U/L (15-37) Alanine Aminotransferase (ALT/SGPT) 61 U/L (16-63) Alkaline Phosphatase 226 U/L (46-116) Total Protein 5.8 g/dL (6.4-8.2) Albumin 1.6 g/dL (3.4-5.0) Albumin/Globulin Ratio 0.4 (1.0-1.7) Test 03/16/20 11:30 White Blood Count 12.5 x10^3/uL (4.0-11.0) Red Blood Count 2.87 x10^6/uL (4.30-5.70) Hemoglobin 8.4 g/dL (13.0-17.5) Hematocrit 24.7 % (39.0-53.0) Mean Corpuscular Volume 86 fL (79-100) Mean Corpuscular Hemoglobin 29 pg (25-35) Mean Corpuscular Hemoglobin Concent 34 g/dL (31-37) Red Cell Distribution Width 17.2 % (11.5-14.5) Platelet Count 231 x10^3/uL (140-400) Neutrophils (%) (Auto) 94 % (31-73) Lymphocytes (%) (Auto) 2 % (24-48) Monocytes (%) (Auto) 2 % (0-9) Eosinophils (%) (Auto) 1 % (0-3) Basophils (%) (Auto) 0 % (0-3) Neutrophils # (Auto) 11.8 x10^3/uL (1.8-7.7) Lymphocytes # (Auto) 0.2 x10^3/uL (1.0-4.8) Monocytes # (Auto) 0.3 x10^3/uL (0.0-1.1) Eosinophils # (Auto) 0.2 x10^3/uL (0.0-0.7) Basophils # (Auto) 0.0 x10^3/uL (0.0-0.2) Allergies: Coded Allergies: clindamycin (Verified Allergy, Intermediate, 02/17/16) levofloxacin (Verified Allergy, Intermediate, 01/06/17) morphine (Verified Allergy, Intermediate, 02/17/16) prednisone (Verified Allergy, Intermediate, 01/06/17) pramipexole (Verified Adverse Reaction, Intermediate, 02/17/16) muscle and joint aches Medications: Current Medications Medications (Trade) Dose Ordered Sig/[place]roy Route PRN Reason Start Time Stop Time Status Last Admin Dose Admin Haloperidol Lactate (Haldol Inj) 5 mg 1X ONCE IM 03/15/20 20:00 03/15/20 20:01 DE 03/15/20 19:30 Diphenhydramine HCl (Benadryl) 50 mg 1X ONCE IM 03/15/20 20:00 03/15/20 20:01 DE 03/15/20 19:30 Lorazepam (Ativan Inj) 1 mg 1X ONCE IVP 03/15/20 20:00 03/15/20 20:01 DC 03/15/20 20:55 Dextrose 1,000 ml @ 75 mls/hr 1X ONCE IV 03/15/20 21:30 03/15/20 21:23 DC 03/15/20 21:03 Sodium Chloride 154 meq/Dextrose 1,038.5 ml @ 75 mls/hr [id number] IV 03/15/20 22:00 03/16/20 21:59 03/16/20 12:30 Ceftriaxone Sodium (Rocephin) 2 gm 1X ONCE IVP 03/15/20 22:00 03/15/20 22:01 DC 03/15/20 22:36 Lorazepam (Ativan Inj) 2 mg 1X ONCE IVP 03/15/20 23:45 03/15/20 23:46 DC 03/15/20 23:37 Lorazepam (Ativan Inj) 1 mg PRN Q4HRS PRN IVP ANXIETY / AGITATION 03/16/20 03:15 03/16/20 06:11 Amlodipine Besylate (Norvasc) 10 mg DAILY PO 03/16/20 09:00 03/16/20 09:39 Montelukast Sodium (Singulair) 10 mg DAILY PO 03/16/20 09:00 03/16/20 09:40 Duloxetine HCl (Cymbalta) 60 mg BID PO 03/16/20 09:00 03/16/20 09:38 Pantoprazole Sodium (Protonix) 40 mg DAILYAC PO 03/16/20 08:30 03/16/20 09:39 Linagliptin (Tradjenta) 5 mg DAILY PO 03/16/20 09:00 03/16/20 09:39 Haloperidol Lactate (Haldol Inj) 5 mg PRN Q6HRS PRN IVP AGITATION 03/16/20 10:45 03/16/20 10:50 Fentanyl Citrate (Fentanyl 2ml Vial) 25 mcg PRN Q3HRS PRN IVP MOD-SEVERE PAIN 03/16/20 11:00 03/16/20 12:33 Imaging: Imaging: Head CT IMPRESSION: No evidence for acute intracranial process. CXR Impression: Mild congestive heart failure suspected. No focal infiltrate. PE: GEN: trying to get out of bed, mittens HEENT: Atraumatic, PERRL LUNGS: CTAB HEART: mildly tachycardic ABD: NABS, S/ND/NT EXTREMITY: No edema SKIN: No rashes, no jaundice NEURO/PSYCH: confused, restless A/P: A/P: AMS Leukocytosis, anemia, COLBY/CKD, hyponatremia, elevated BNP, elevated LFTs, lactic acidosis Recent cholecystectomy @ [facility], then drain and stent placement - ?bile leak H/o GERD, constipation CRC screen - reportedly normal w/ Dr. Mathis ~7 years ago DM, h/o RCC s/p left nephrectomy -- Await records from [facility]. US ordered. D/w Dr. Hameed - CT (non-contrast ok) would be useful as well - will order (if mental status allows). Check iron profile for completeness. Agree w/ PPI, Miralax. ROSAURA ORTEZ Mar 16, 2020 13:10
[2020-03-16] MEDS ORDERED: diphenhydrAMINE 50 MG/ML VIAL IVP PRN (13:45)
--- NOTE | 2020-03-16 14:21 | RAD ---
ABDOMEN LTD History: Reason: Recent jonelle, concern for biloma, etc / Spl. Instructions: / History: Comparison: CT April 15, 2018. Technique: Transabdominal ultrasound images are obtained of the right upper quadrant. Findings: Degraded evaluation due to limited mobility. Visualized pancreas is unremarkable. Heterogeneous lesion within the right hepatic lobe measures 9.3 x 6.7 cm. Right hepatic lobe measures 14.9 cm. Portal flow is hepatopedal. Prior cholecystectomy. Common bile duct measures 2.1 mm in diameter. The right kidney measures 12.7 x 5.7 x 5.7 cm. No hydronephrosis. Degraded evaluation due to overlying structures and immobility. Aorta and IVC not well seen due to overlying bowel gas. IMPRESSION: 1. Right hepatic lobe heterogeneous lesion. Recommend CT with contrast to further assess. 2. Prior cholecystectomy. Electronically signed by: Darron Kothari DO (03/16/2020 2:18 PM) [id number]
--- NOTE | 2020-03-16 15:04 | NUR ---
SS following for discharge planning. SS reviewed pt chart and discussed with pt RN. Pt is from home with spouse and is currently on room air. Pt had CT scan today. SS will continue to follow for discharge planning.
[2020-03-16] MEDS: METOPROLOL TART IMMED RELEASE 25 MG TABLET. PO SCH ×2 (15:35→21:35)
--- NOTE | 2020-03-16 16:09 | RAD ---
EXAM: CT ABDOMEN/PELVIS WITHOUT CONTRAST. HISTORY: Elevated liver enzymes, recent cholecystectomy and stent placement. TECHNIQUE: Computed tomography of the abdomen and pelvis was performed without intravenous contrast. One or more of the following individualized dose reduction techniques were utilized for this examination: 1. Automated exposure control. 2. Adjustment of the mA and/or kV according to patient size. 3. Use of iterative reconstruction technique. COMPARISON: 04/15/2018. FINDINGS: Lung windows through the visualized portions of the bases reveal small bilateral pleural effusions with associated atelectasis.. Bone windows reveal no suspicious lesions. There is a hemangioma within the right aspect of L2. A new hypoattenuating mass in the right hepatic lobe measures 9.9 x 8.1 cm. A metallic stent is noted in the distal common duct. The intrahepatic biliary tree is decompressed. A pancreatic head mass is not well-defined by this technique. The left kidney is surgically absent. The right kidney is unremarkable. The spleen and adrenal glands are unremarkable. There are no pathologically enlarged lymph nodes. The bladder is decompressed by a Hernandez catheter. Small bilateral inguinal hernias containing only fat. The appendix is not inflamed. There is no small bowel obstruction. Changes of mesh repair of the anterior abdominal wall are noted. IMPRESSION: 1. 10 x 8 cm hepatic mass consistent with metastatic disease. 2. Metallic common duct stent in place. A pancreatic head mass is not well-defined by this technique. Correlate for a known diagnosis. 3. Small bilateral pleural effusions. 4. Small bilateral inguinal hernias contain only fat. Electronically signed by: Aimee Wilson MD (03/16/2020 4:06 PM) [id number]
[2020-03-16] MEDS ORDERED: ONDANSETRON PF 4 MG/2 ML VIAL. IV PRN (21:00)
[2020-03-16] MEDS: ATORVASTATIN CALCIUM 20 MG TABLET PO SCH (21:35)
[2020-03-16] MEDS: INSULIN GLARGINE SYRINGE. SQ SCH (21:41)
[2020-03-16] MEDS: HEPARIN for SUB-Q USE 5,000 UNIT/ML VIAL. SQ SCH (21:42)
[2020-03-16] MEDS ORDERED: cefTRIAXone IV Push 1 GM VIAL. IVP SCH (22:00)
[2020-03-17] VITALS (7 sets, daily range): BP systolic 86–155; BP diastolic 41–80
[2020-03-17] MEDS: DULoxetine HCL 30 MG CAPSULE.DR PO SCH ×3 (00:34→21:12)
[2020-03-17] MEDS: METOPROLOL TART IMMED RELEASE 25 MG TABLET. PO SCH ×3 (00:34→18:14)
[2020-03-17] MEDS: ATORVASTATIN CALCIUM 20 MG TABLET PO SCH ×2 (00:34→21:12)
[2020-03-17] MEDS ORDERED: DEXTROSE 10% IV SCH (04:45)
[2020-03-17] MEDS ORDERED: SODIUM CHLORIDE IV SCH (04:45)
[2020-03-17 05:38] LABS: ALBUMIN 1.2 g/dL (3.4-5.0); CALCIUM 7.2 mg/dL (8.5-10.1); CREATININE 2.1 mg/dL (0.7-1.3); DIRECT BILIRUBIN 0.4 mg/dL (0.0-0.2); GFR 32.4; PHOSPHORUS 3.5 mg/dL (2.6-4.7); POTASSIUM 3.9 mmol/L (3.5-5.1); TOTAL BILIRUBIN 0.6 mg/dL (0.2-1.0); TOTAL PROTEIN 4.9 g/dL (6.4-8.2)
[2020-03-17] MEDS: HEPARIN for SUB-Q USE 5,000 UNIT/ML VIAL. SQ SCH ×3 (06:21→21:24)
[2020-03-17] MEDS: INSULIN LISPRO 300 UNITS/3 ML VIAL. SQ SCH ×4 (07:30→21:00)
[2020-03-17] MEDS: LINAGLIPTIN 5 MG TABLET PO SCH (07:50)
[2020-03-17] MEDS: PANTOPRAZOLE 40 MG TABLET.DR. PO SCH (07:50)
[2020-03-17] MEDS: MONTELUKAST SODIUM 10 MG TABLET. PO SCH (07:51)
[2020-03-17] MEDS: amLODIPine BESYLATE 10 MG TABLET PO SCH (09:00)
--- NOTE | 2020-03-17 09:04 | PDOC2 ---
JOSE JUAN RAMÍREZ [employer] 03/17/20 0904: CARDIAC CONSULT DATE OF CONSULT Date of Consult DATE: 03/17/20 TIME: 08:41 REASON FOR CONSULT Reason for Consult: Acute CHF? REFERRING PHYSICIAN Referring Physician: Mukund SOURCE Source: Chart review HISTORY OF PRESENT ILLNESS HISTORY OF PRESENT ILLNESS This is a 59 yo male admitted for increasing confusion. He is still disoriented hence I discussed details with his . He has been having increasing confusion found wet with his urine on the floor by his . No noted fall but acting weak and has been confused. Presently he thinks that it is 1999 and slow to answer questions. He does not have any hx of CAD or arrhythmias. and does not have hx of CHF and has COPD due to chronic exposure to secondary hand smoking when he used to work. He has not been having any chest pain, SOA or peripheral edema prior to his hospitalization. He does have significant hepatobiliary history as detailed below seen at [facility] and [facility] but no hx of ascites, cirrhosis and not VTE as well and has been tested 3x for covid 19 and negative with last check over a week ago. PAST MEDICAL HISTORY Cardiovascular: HTN, Hyperlipidemia Pulmonary: COPD CENTRAL NERVOUS SYSTEM: Carpal Tunnel Syndrome GI: GERD, Peptic Ulcer disease (recently noted prepyloric ulcers in 03/10/2020 via EGD) Heme/Onc: Cancer (renal) Hepatobiliary: Other (liver hemangioma with biopsy) Psych: Anxiety Musculoskeletal: Osteoarthritis, Other (cervical stenosis; chronic opioid use) Renal/: Chronic renal insuff Endocrine: Diabetes (2) Dermatology: Other (foot ulcer) PAST SURGICAL HISTORY Past Surgical History ERCP on 01/13/2020 with biliary stent and small PD stent due to bile leak post cholecystectomy Past Surgical History: Hernia Repair, Other (elbow surgery; left achilles repair; left nephrectomy, septoplasty; back surgery) FAMILY HISTORY Family History: Coronary Artery Disease (father), Diabetes (sister), Hypertension (mother) SOCIAL HISTORY Smoke: No ALCOHOL: none Drugs: None Lives: with Family CURRENT MEDICATIONS CURRENT MEDICATIONS Current Medications Medications (Trade) Dose Ordered Sig/Tory Route PRN Reason Start Time Stop Time Status Last Admin Dose Admin Amlodipine Besylate (Norvasc) 10 mg DAILY PO 03/16/20 09:00 03/16/20 09:39 Montelukast Sodium (Singulair) 10 mg DAILY PO 03/16/20 09:00 03/17/20 07:51 Duloxetine HCl (Cymbalta) 60 mg BID PO 03/16/20 09:00 03/17/20 07:51 Insulin Glargine (Lantus Syringe) 10 unit QHS SQ 03/16/20 21:00 03/16/20 21:41 Linagliptin (Tradjenta) 5 mg DAILY PO 03/16/20 09:00 03/17/20 07:50 Haloperidol Lactate (Haldol Inj) 5 mg PRN Q6HRS PRN IVP AGITATION 03/16/20 10:45 03/16/20 18:15 Fentanyl Citrate (Fentanyl 2ml Vial) 25 mcg PRN Q3HRS PRN IVP MOD-SEVERE PAIN 03/16/20 11:00 03/16/20 12:33 Diphenhydramine HCl (Benadryl) 25 mg PRN Q6HRS PRN IVP ITCHING 03/16/20 13:45 03/16/20 13:41 Metoprolol Tartrate (Lopressor) 25 mg BID PO 03/16/20 15:30 03/16/20 15:35 Heparin Sodium (Porcine) (Heparin Sodium) 5,000 unit Q8HRS SQ 03/16/20 22:00 03/17/20 06:21 Ceftriaxone Sodium (Rocephin) 1 gm Q24H IVP 03/16/20 22:00 03/16/20 21:35 Sodium Chloride 154 meq/Dextrose 1,038.5 ml @ 75 mls/hr [id number] IV 03/17/20 04:45 03/17/20 04:45 ALLERGIES ALLERGIES: Coded Allergies: clindamycin (Verified Allergy, Intermediate, 02/17/16) levofloxacin (Verified Allergy, Intermediate, 01/06/17) morphine (Verified Allergy, Intermediate, 02/17/16) prednisone (Verified Allergy, Intermediate, 01/06/17) pramipexole (Verified Adverse Reaction, Intermediate, 02/17/16) muscle and joint aches ROS Review of System unreliable, disoriented, see HPI PHYSICAL EXAM General: Alert, Cooperative, No acute distress HEENT: Atraumatic, Mucous membr. moist/pink Lungs: Other (dimnished bases) Heart: Regular rate (SR), Normal S1, Normal S2, Other (2/6 systolic murmur to LLSborder) Abdomen: Soft, No tenderness Extremities: No cyanosis, No edema Neuro: Normal speech, Sensation intact Psych/Mental Status: Other (flat affect, disoriented to time and place) MUSCULOSKELETAL: Osteoarthritic changes both hands VITALS/I&O VITALS/I&O: Vital Signs Date Time Temp Pulse Resp B/P (MAP) Pulse Ox O2 Delivery O2 Flow Rate FiO2 03/17/20 03:08 97.8 81 22 86/54 (65) 97 Room Air 97.8 I & O 03/16/20 03/16/20 03/17/20 15:00 23:00 07:00 Intake Total 664 ml 245 ml 980 ml Output Total 2800 ml 950 ml Balance -2136 ml 245 ml 30 ml LABS Lab: Laboratory Tests Test 03/16/20 11:28 03/16/20 11:30 03/16/20 16:41 03/16/20 21:39 Sodium Level 129 mmol/L (136-145) L Potassium Level 4.3 mmol/L (3.5-5.1) Chloride Level 94 mmol/L (98-107) L Carbon Dioxide Level 26 mmol/L (21-32) Anion Gap 9 (6-14) Blood Urea Nitrogen 43 mg/dL (8-26) H Creatinine 2.9 mg/dL (0.7-1.3) H Estimated GFR (Cockcroft-Gault) 22.3 BUN/Creatinine Ratio 15 (6-20) Glucose Level 126 mg/dL (70-99) H Calcium Level 7.8 mg/dL (8.5-10.1) L Magnesium Level 1.9 mg/dL (1.8-2.4) Total Bilirubin 0.9 mg/dL (0.2-1.0) Aspartate Amino Transferase (AST) 64 U/L (15-37) H Alanine Aminotransferase (ALT) 61 U/L (16-63) Alkaline Phosphatase 226 U/L (46-116) H Total Protein 5.8 g/dL (6.4-8.2) L Albumin 1.6 g/dL (3.4-5.0) L Albumin/Globulin Ratio 0.4 (1.0-1.7) L White Blood Count 12.5 x10^3/uL (4.0-11.0) H Red Blood Count 2.87 x10^6/uL (4.30-5.70) L Hemoglobin 8.4 g/dL (13.0-17.5) L Hematocrit 24.7 % (39.0-53.0) L Mean Corpuscular Volume 86 fL (79-100) Mean Corpuscular Hemoglobin 29 pg (25-35) Mean Corpuscular Hemoglobin Concent 34 g/dL (31-37) Red Cell Distribution Width 17.2 % (11.5-14.5) H Platelet Count 231 x10^3/uL (140-400) Neutrophils (%) (Auto) 94 % (31-73) H Lymphocytes (%) (Auto) 2 % (24-48) L Monocytes (%) (Auto) 2 % (0-9) Eosinophils (%) (Auto) 1 % (0-3) Basophils (%) (Auto) 0 % (0-3) Neutrophils # (Auto) 11.8 x10^3/uL (1.8-7.7) H Lymphocytes # (Auto) 0.2 x10^3/uL (1.0-4.8) L Monocytes # (Auto) 0.3 x10^3/uL (0.0-1.1) Eosinophils # (Auto) 0.2 x10^3/uL (0.0-0.7) Basophils # (Auto) 0.0 x10^3/uL (0.0-0.2) Iron Level 15 ug/dL (65-175) L Total Iron Binding Capacity 111 ug/dL (250-450) L Iron Saturation 14 % (15-34) L Glucose (Fingerstick) 152 mg/dL (70-99) H 184 mg/dL (70-99) H Test 03/17/20 01:20 03/17/20 04:50 03/17/20 07:48 Troponin I Quantitative 0.085 ng/mL (0.000-0.055) 0.053 ng/mL (0.000-0.055) Sodium Level 134 mmol/L (136-145) L Potassium Level 3.9 mmol/L (3.5-5.1) Chloride Level 101 mmol/L (98-107) Carbon Dioxide Level 25 mmol/L (21-32) Anion Gap 8 (6-14) Blood Urea Nitrogen 33 mg/dL (8-26) H Creatinine 2.1 mg/dL (0.7-1.3) H Estimated GFR (Cockcroft-Gault) 32.4 Glucose Level 129 mg/dL (70-99) H Calcium Level 7.2 mg/dL (8.5-10.1) L Phosphorus Level 3.5 mg/dL (2.6-4.7) Magnesium Level 2.0 mg/dL (1.8-2.4) Total Bilirubin 0.6 mg/dL (0.2-1.0) Direct Bilirubin 0.4 mg/dL (0.0-0.2) H Aspartate Amino Transferase (AST) 56 U/L (15-37) H Alanine Aminotransferase (ALT) 47 U/L (16-63) Alkaline Phosphatase 177 U/L (46-116) H Total Protein 4.9 g/dL (6.4-8.2) L Albumin 1.2 g/dL (3.4-5.0) L Glucose (Fingerstick) 117 mg/dL (70-99) H Laboratory Tests 03/16/20 11:30 Laboratory Tests 03/16/20 11:28 03/17/20 04:50 IMAGES IMAGES Findings: EGD [facility] Examination of esophagus showed grade A esophagitis. Some retained food was seen in stomach. There were three ulcers in prepyloric area. biopsy for H.pylori is obtained. Examination of duodenum revealed a stent at ampulla. ENDOSONOGRAPHIC FINDING: : The celiac axis was visualized and no celiac nodes were seen. There was no sign of significant endosonographic abnormality in the left lobe of the liver. The left adrenal appeared normal. There was no sign of significant endosonographic abnormality in the entire pancreas. . The pancreatic duct is 2 mm in the head and 1 mm in the body. a biliary stent is seen in ampulla wiht pneumobilia. Endosonographic imaging in the entire pancreas showed no chronic pancreatitis or pancreas divisum. No mass was seen . The ampulla was normal appearing. -Examination of gastric wall at antrum wwas normal. Impression: - The celiac axis was visualized and no celiac nodes were seen. - There was no evidence of significant pathology in the left lobe of the liver. - There was no sign of significant pathology in the entire pancreas. - The ampulla was normal appearing. - No specimens collected. Estimated Blood Loss: Estimated blood loss: none. Recommendation: - Await path results. -Avoid NSAIDs -PPI daily Scope In: 5:17:12 PM Scope Out: 5:36:57 PM Total Procedure Duration Time 0 hours 19 minutes 45 seconds Procedure Code(s): --- Professional --- 35955, Esophagogastroduodenoscopy, flexible, transoral; with endoscopic ultrasound examination limited to the esophagus, stomach or duodenum, and adjacent structures Diagnosis Code(s): --- Professional --- R10.13, Epigastric pain CPT copyright 2019 [employer]. All rights reserved. The codes documented in this report are preliminary and upon tennis camp instructor review may be revised to meet current compliance requirements. Attending Participation: I personally performed the entire procedure. MD Donta Chau MD 03/10/2020 5:43:48 PM The attending physician has electronically signed and finalized this document. Jonathan Last, Number of Addenda: 0 Note Initiated On: 03/10/2020 5:[address] ABDOMEN AND PELVIS Clinical Indication: Status post laparoscopic cholecystectomy. Biloma status post laparoscopic cholecystectomy with drain in place. Technique: Multiple contiguous axial images were obtained through the abdomen and pelvis following the administration of IV contrast material. Portal venous phase of postcontrast imaging was obtained. Post processing coronal and sagittal reconstruction images were made from the axial images. IV contrast: Yes Bowel contrast: Yes Comparison: Noncontrast CT abdomen/pelvis January 13, 2020 FINDINGS: Lower Thorax: Persistent minimal right pleural effusion. 2 mm subpleural nodule posterolaterally in the left lower lobe is unchanged as at least 2014. Liver and Biliary system: Normal size liver. Within hepatic segment 2 (series 2 image 18) there is a focal, though ill-defined area of low attenuation measuring 18 x 10 mm. A couple similar, though smaller low-attenuation areas are also present medially within hepatic segment 7 (series 2 images 9 and 11). Major portal veins and hepatic veins are all patent. Stent is in place within the common bile duct. Common hepatic duct is mildly dilated up to 1 cm. Mild thickening and enhancement of the dyer of the common hepatic duct. Mild central intrahepatic biliary ductal dilation is also present. Prior cholecystectomy. * Unchanged 4.4 cm loculated fluid collection in the gallbladder fossa, previously 4.7 cm. * Development of a 9.6 cm loculated subcapsular fluid collection along the posterior medial margin of hepatic segment 6 (series 601 image 98, series 2 image 21). * Following percutaneous pigtail drain placement, there has been significant decrease in size of the perihepatic fluid that extended cephalad into the subphrenic space and caudally into the right paracolic gutter. A small, peripherally enhancing loculated fluid collection persists just inferior to the tip of the right lobe of the liver that measures up to 7 cm (series 2 image 32). There may be a thin connection with this loculated collection in the collection adjacent to hepatic segment 6 (series 601 image 84). Spleen: Unremarkable. Adrenal Glands and Kidneys: The right kidney and both adrenal glands are normal. Prior left nephrectomy. Pancreas and Retroperitoneum: Unremarkable. Aorta and Major Vessels: Normal caliber abdominal aorta with mild atherosclerosis. Bowel, Mesentery and Peritoneal space: Bowel loops are normal in caliber. Improvement in diffuse peritoneal stranding with mild ill-defined stranding persisting within the fat in the right upper quadrant adjacent to the hepatic flexure of the colon in the liver. Improvement in the now trace ascites. No pneumoperitoneum. Pelvis: Small fat-containing bilateral inguinal hernias. Urinary bladder is only minimally distended. Upper limits of normal sized femoral lymph nodes are present that are most likely reactive. Abdominal wall and Osseous Structures: Prior mesh repair of an anterior abdominal wall hernia with mild protrusion/herniation persisting at the level of the umbilicus. Mild postoperative scarring in the anterior abdominal wall. Mild to moderate thoracolumbar spondylosis. IMPRESSION CT ABD/pelvis 1. Improvement in peritonitis and ascites 2. Decrease in the amount of perihepatic fluid following percutaneous drain placement, which extended from the subphrenic space into the right paracolic gutter. Loculated 7 cm fluid collection persists along the inferior margin of the liver 3. Development of a 9.6 cm loculated subcapsular fluid collection along the posteromedial margin of hepatic segment 6. 4. Unchanged 4.4 cm loculated fluid collection in the gallbladder fossa. 5. Several small, ill-defined areas of low attenuation within the liver that are too small to characterize though may represent focal areas of parenchymal inflammation. 6. Mild thickening and enhancement of the common hepatic duct that is suggestive of inflammation. Unchanged mild biliary ductal dilation. Finalized by Juanito Cabello M.D. on 02/03/2020 2:35 PM. Dictated by Juanito Cabello M.D. on 02/03/2020 2:14 PM. ASSESSMENT/PLAN ASSESSMENT/PLAN 1. Acute diastolic CHF/pleural effusion: multifactorial induced by anemia, hypoalbuminemia and renal failure. Presently compensated. 2. Metabolic encephalopathy 3. Sepsis/fever 4. Severe hypoalbuminemia 5. Mild transaminitis with hepatic mass: GI following 6. S/P lap jonelle with bile leak: S/P ERCP with biliary stent placement at [facility] 7. COLBY on CKD with hyponatremia: nephrology following 8. Normocytic anemia: Hgb 8.5 lower than prior 11-13 range per review 9. Recently noted PUD: prepyloric ulcers via EGD 03/10/2020 10. Hx of left nephrectomy r/t renal CA 11. HTN: at low end 12. DM2 with hypoglycemia 13. HLP 13. Mild troponin elevation: 0.085, no EKG chnages no cardiac symptoms. Type 2 demand mediated with multiple culprits above. Recommendations 1. Baseline TTE. Continue IV hydration per nephrology 2. No arrhythmias currently, monitor rhythm 3. Secondary prevention measures when PO allowed. supportive care. VIRAL REY MD 03/18/20 0931: CARDIAC CONSULT ASSESSMENT/PLAN ASSESSMENT/PLAN Patient seen and examined 03/17/20. Agree with [facility]'s assessment and plan. Acute on chronic diastolic heart failure better compensated. Slight troponin elevation probably demand ischemia. 2D echo showed LVEF 50 to 55%. Continue management of metabolic encephalopathy per primary team. Thank you for your consultation. JOSE JUAN RAMÍREZ APRN Mar 17, 2020 09:04 VIRAL REY MD Mar 18, 2020 09:31
--- NOTE | 2020-03-17 10:13 | PDOC ---
Subjective: Subjective: present - reports was told at he had a spot on his liver and two in his lungs that were nothing no worry about. No sure about elevated LFTs at - did have low sodium and was told Hgb was fal ling but not to worry about it. Did have a bile leak - drain and stent placed, then stent replaced last . Confused since cholecystectomy. Objective: Objective: No records from received. Tmax 101.1 Vital Signs: Vital Signs Date Time Temp Pulse Resp B/P (MAP) Pulse Ox O2 Delivery O2 Flow Rate FiO2 03/17/20 09:00 84 92/60 03/17/20 08:00 Room Air 03/17/20 08:00 97.9 20 98 97.9 Labs: Laboratory Tests Test 03/16/20 11:28 03/16/20 11:30 03/16/20 16:41 03/16/20 21:39 Sodium Level 129 mmol/L Potassium Level 4.3 mmol/L Chloride Level 94 mmol/L Carbon Dioxide Level 26 mmol/L Anion Gap 9 Blood Urea Nitrogen 43 mg/dL Creatinine 2.9 mg/dL Estimated GFR (Cockcroft-Gault) 22.3 BUN/Creatinine Ratio 15 Glucose Level 126 mg/dL Calcium Level 7.8 mg/dL Magnesium Level 1.9 mg/dL Total Bilirubin 0.9 mg/dL Aspartate Amino Transf (AST/SGOT) 64 U/L Alanine Aminotransferase (ALT/SGPT) 61 U/L Alkaline Phosphatase 226 U/L Total Protein 5.8 g/dL Albumin 1.6 g/dL Albumin/Globulin Ratio 0.4 White Blood Count 12.5 x10^3/uL Red Blood Count 2.87 x10^6/uL Hemoglobin 8.4 g/dL Hematocrit 24.7 % Mean Corpuscular Volume 86 fL Mean Corpuscular Hemoglobin 29 pg Mean Corpuscular Hemoglobin Concent 34 g/dL Red Cell Distribution Width 17.2 % Platelet Count 231 x10^3/uL Neutrophils (%) (Auto) 94 % Lymphocytes (%) (Auto) 2 % Monocytes (%) (Auto) 2 % Eosinophils (%) (Auto) 1 % Basophils (%) (Auto) 0 % Neutrophils # (Auto) 11.8 x10^3/uL Lymphocytes # (Auto) 0.2 x10^3/uL Monocytes # (Auto) 0.3 x10^3/uL Eosinophils # (Auto) 0.2 x10^3/uL Basophils # (Auto) 0.0 x10^3/uL Iron Level 15 ug/dL Total Iron Binding Capacity 111 ug/dL Iron Saturation 14 % Glucose (Fingerstick) 152 mg/dL 184 mg/dL Test 03/17/20 01:20 03/17/20 04:50 03/17/20 07:48 Troponin I Quantitative 0.085 ng/mL 0.053 ng/mL Sodium Level 134 mmol/L Potassium Level 3.9 mmol/L Chloride Level 101 mmol/L Carbon Dioxide Level 25 mmol/L Anion Gap 8 Blood Urea Nitrogen 33 mg/dL Creatinine 2.1 mg/dL Estimated GFR (Cockcroft-Gault) 32.4 Glucose Level 129 mg/dL Calcium Level 7.2 mg/dL Phosphorus Level 3.5 mg/dL Magnesium Level 2.0 mg/dL Total Bilirubin 0.6 mg/dL Direct Bilirubin 0.4 mg/dL Aspartate Amino Transf (AST/SGOT) 56 U/L Alanine Aminotransferase (ALT/SGPT) 47 U/L Alkaline Phosphatase 177 U/L Total Protein 4.9 g/dL Albumin 1.2 g/dL Glucose (Fingerstick) 117 mg/dL BLOOD CULTURE Final GRAM NEGATIVE RODS SEEN IN 1 OF 2 TOTAL BOTTLES, REPRESENTING 2 SETS COLLECTED (EACH SET ONLY HAS ONE BOTTLE). Imaging: CT A/P 03/16 IMPRESSION: 1. 10 x 8 cm hepatic mass consistent with metastatic disease. 2. Metallic common duct stent in place. A pancreatic head mass is not well- defined by this technique. Correlate for a known diagnosis. 3. Small bilateral pleural effusions. 4. Small bilateral inguinal hernias contain only fat. Abd US 03/16 IMPRESSION: 1. Right hepatic lobe heterogeneous lesion. Recommend CT with contrast to further assess. 2. Prior cholecystectomy. Echo 03/17 pending PE: GEN: NAD - having echocardiogram LUNGS: clear HEART: irregular ABD: non-distended, soft NEURO/PSYCH: confused - says he's at home, the year is 200 - does know who the president is A/P: Encephalopathy, GNR bacteremia, hyponatremia Recent cholecystectomy/bile leak w/ stent placement/replacement @ Hepatic mass ACD/NUHA, elevated AST and Alk Phos -- CBC pending, add CMP. No records from [facility] yet. Will review imaging w/ Dr. Hameed. Justicifation of Admission Dx: Justifications for Admission: Justification of Admission Dx: Yes ROSAURA ORTEZ Mar 17, 2020 10:13
--- NOTE | 2020-03-17 11:03 | CARD ---
MR#: [id number] Date of Study: 03/17/2020 Ordering Physician: GREGORIO IBARRA, Referring Physician: GREGORIO IBARRA, Tech: Patricia Landry [facility] APPROVED REPORT EXAM: Two-dimensional and M-mode echocardiogram with Doppler and color Doppler. Other Information Quality : Good INDICATION R/O CHF, Edema 2D DIMENSIONS Left Atrium(2D)4.0 (1.6-4.0cm)IVSd1.1 (0.7-1.1cm) Aortic Root(2D)3.8 (2.0-3.7cm)LVDd5.5 (3.9-5.9cm) LVOT Diameter2.2 (1.8-2.4cm)PWd1.0 (0.7-1.1cm) LVDs3.6 (2.5-4.0cm)FS (%) 35.8 % SV96.5 ml Aortic Valve AoV Peak Cristobal.138.7cm/sAoV VTI24.4cm AO Peak GR.7.7mmHgLVOT VTI 21.57cm AO Mean GR.4mmHgAVA (VTI)3.26cm2 Mitral Valve MV E Euotlfxf52.3cm/sMV DECEL [id number] MV A Cfnhaneq79.7cm/sE/A Ratio0.9 TDI Lateral E' P. V12.49cm/sMedial E' P. V6.63cm/s E/Lateral E'5.9E/Medial E'11.2 Tricuspid Valve TR P. Vtdmhpzh687dh/sRAP BXXRWSSO7lnSe TR Peak Gr.25rcZtELYK73rkKy Pulmonary Vein S1 Ghxoydnc73.1cm/sS2 Ztdgrczz21.53cm/s D2 Rquilzwh90.5cm/s LEFT VENTRICLE The left ventricle is normal size. There is normal left ventricular wall thickness. The left ventricu lar systolic function is normal. The Ejection Fraction is 50-55%. There is normal LV segmental wall m otion. Transmitral Doppler flow pattern is Grade I-abnormal relaxation pattern. RIGHT VENTRICLE The right ventricle is normal size. The right ventricular systolic function is normal. ATRIA The left atrium is mildly dilated. The right atrium size is normal. The interatrial septum is intact with no evidence for an atrial septal defect or patent foramen ovale as noted on 2-D or Doppler imagi ng. AORTIC VALVE The aortic valve is calcified but opens well. Doppler and Color Flow revealed no significant aortic r egurgitation. There is no significant aortic valvular stenosis. MITRAL VALVE The mitral valve is calcified but opens well. There is no evidence of mitral valve prolapse. There is no mitral valve stenosis. Doppler and Color-flow revealed mild mitral regurgitation. TRICUSPID VALVE The tricuspid valve is normal in structure and function. Doppler and Color Flow revealed trace tricus pid regurgitation. The PA pressure was estimated at 31 mmHg. There is no tricuspid valve stenosis. PULMONIC VALVE The pulmonic valve is not well visualized. Doppler and Color Flow revealed no pulmonic valvular regur gitation. There is no pulmonic valvular stenosis. GREAT VESSELS The aortic root is normal in size. The ascending aorta is normal in size. The IVC is normal in size a nd collapses <50% with inspiration. PERICARDIAL EFFUSION There is no evidence of significant pericardial effusion. Critical Notification Critical Value: No <Conclusion> The left ventricle is normal size. The left ventricular systolic function is normal. The Ejection Fraction is 50-55%. Doppler and Color Flow revealed no significant aortic regurgitation. There is no significant aortic valvular stenosis. Doppler and Color-flow revealed mild mitral regurgitation. Doppler and Color Flow revealed trace tricuspid regurgitation. The PA pressure was estimated at 31 mmHg. Signed by : Todd Armenta MD Electronically Approved : 03/17/2020 11:02:48
[2020-03-17 11:18] LABS: BASO # 0.1 x10^3/uL (0.0-0.2); BASO % 1 % (0-3); EOS # 0.1 x10^3/uL (0.0-0.7); EOS % 1 % (0-3); HEMATOCRIT 23.7 % (39.0-53.0); HEMOGLOBIN 8.1 g/dL (13.0-17.5); LYMPH # 0.9 x10^3/uL (1.0-4.8); LYMPH % 11 % (24-48); MEAN CORPUSCULAR HEMOGLOBIN 30 pg (25-35); MEAN CORPUSCULAR HGB CONC 34 g/dL (31-37); MEAN CORPUSCULAR VOLUME 87 fL (79-100); MONO # 0.5 x10^3/uL (0.0-1.1); MONO % 6 % (0-9); NEUT # 6.6 x10^3/uL (1.8-7.7); NEUT % 81 % (31-73); PLATELET COUNT 177 x10^3/uL (140-400); RED BLOOD COUNT 2.74 x10^6/uL (4.30-5.70); RED CELL DISTRIBUTION WIDTH 17.5 % (11.5-14.5); WHITE BLOOD COUNT 8.1 x10^3/uL (4.0-11.0)
--- NOTE | 2020-03-17 11:39 | PDOC ---
Renal-Progress Notes Subjective Notes Notes SITTING UP, LESS CONFUSED History of Present Illness Hx of present illness BETTER Vitals Vitals Vital Signs Date Time Temp Pulse Resp B/P (MAP) Pulse Ox O2 Delivery O2 Flow Rate FiO2 03/17/20 09:00 84 92/60 03/17/20 08:00 Room Air 03/17/20 08:00 97.9 20 98 97.9 Weight Weight [ ] I.O. Intake and Output Intake and Output 03/17/20 07:00 Intake Total 1889 ml Output Total 3750 ml Balance -1861 ml Intake Oral 0 ml IV Total 1889 ml Output Urine Total 3750 ml Labs Labs Laboratory Tests Test 03/16/20 16:41 03/16/20 21:39 03/17/20 01:20 03/17/20 04:50 Glucose (Fingerstick) 152 mg/dL (70-99) 184 mg/dL (70-99) Troponin I Quantitative 0.085 ng/mL (0.000-0.055) 0.053 ng/mL (0.000-0.055) Sodium Level 134 mmol/L (136-145) Potassium Level 3.9 mmol/L (3.5-5.1) Chloride Level 101 mmol/L (98-107) Carbon Dioxide Level 25 mmol/L (21-32) Anion Gap 8 (6-14) Blood Urea Nitrogen 33 mg/dL (8-26) Creatinine 2.1 mg/dL (0.7-1.3) Estimated GFR (Cockcroft-Gault) 32.4 Glucose Level 129 mg/dL (70-99) Calcium Level 7.2 mg/dL (8.5-10.1) Phosphorus Level 3.5 mg/dL (2.6-4.7) Magnesium Level 2.0 mg/dL (1.8-2.4) Total Bilirubin 0.6 mg/dL (0.2-1.0) Direct Bilirubin 0.4 mg/dL (0.0-0.2) Aspartate Amino Transf (AST/SGOT) 56 U/L (15-37) Alanine Aminotransferase (ALT/SGPT) 47 U/L (16-63) Alkaline Phosphatase 177 U/L (46-116) Total Protein 4.9 g/dL (6.4-8.2) Albumin 1.2 g/dL (3.4-5.0) Test 03/17/20 07:48 03/17/20 11:00 Glucose (Fingerstick) 117 mg/dL (70-99) White Blood Count 8.1 x10^3/uL (4.0-11.0) Red Blood Count 2.74 x10^6/uL (4.30-5.70) Hemoglobin 8.1 g/dL (13.0-17.5) Hematocrit 23.7 % (39.0-53.0) Mean Corpuscular Volume 87 fL (79-100) Mean Corpuscular Hemoglobin 30 pg (25-35) Mean Corpuscular Hemoglobin Concent 34 g/dL (31-37) Red Cell Distribution Width 17.5 % (11.5-14.5) Platelet Count 177 x10^3/uL (140-400) Neutrophils (%) (Auto) 81 % (31-73) Lymphocytes (%) (Auto) 11 % (24-48) Monocytes (%) (Auto) 6 % (0-9) Eosinophils (%) (Auto) 1 % (0-3) Basophils (%) (Auto) 1 % (0-3) Neutrophils # (Auto) 6.6 x10^3/uL (1.8-7.7) Lymphocytes # (Auto) 0.9 x10^3/uL (1.0-4.8) Monocytes # (Auto) 0.5 x10^3/uL (0.0-1.1) Eosinophils # (Auto) 0.1 x10^3/uL (0.0-0.7) Basophils # (Auto) 0.1 x10^3/uL (0.0-0.2) Micro Micro Microbiology 03/16/20 Blood Culture - Preliminary, Resulted NO GROWTH AFTER 1 DAY Review of Systems Constitutional: yes: other (CONFUSED) Physical Exam General Appearance: no apparent distress Skin: warm Respiratory: bilateral CTA Heart: S1S2, RRR Abdomen: soft, bowel sounds present Genitourinary: bladder flat Extremities: pulses present Neurology: alert, confused Musculoskeletal: Osteoarthritis, Other (cervical stenosis; chronic opioid use) Assessment Assessment IMP COLBY CR DOWN TO 2.1 CKD STAGE 3 WITH CR OF 1.6-2.0 AT BASELINE HYPONATREMIA-IMPROVED HYPOGLYCEMIA MET ENCEPHALOPATHY LEUCOCYTOSIS MALNUTRITION PLAN HYDRATE WITH D10 NS ENC PO SOON D/W ER PHYSICIAN REPEAT LABS IN AM WILL FOLLOW NADIR REILLY MD Mar 17, 2020 11:39
[2020-03-17 11:41] LABS: ALBUMIN 1.4 g/dL (3.4-5.0); ALBUMIN/GLOBULIN RATIO 0.3 (1.0-1.7); CALCIUM 7.4 mg/dL (8.5-10.1); CREATININE 1.9 mg/dL (0.7-1.3); GFR 36.3; POTASSIUM 3.9 mmol/L (3.5-5.1); TOTAL BILIRUBIN 0.6 mg/dL (0.2-1.0); TOTAL PROTEIN 5.5 g/dL (6.4-8.2)
--- NOTE | 2020-03-17 13:30 | PDOC ---
[facility] PROGRESS NOTE Chief Complaint Chief Complaint Hyponatremia History of Present Illness History of Present Illness 03/17/20 Patient seen and examined Chart Reviewed Discussed with RN Positive for Gram (-) rods Recent 65 lbs weight loss This is a 59 yo male admitted for increasing confusion. Found wet with his urine on the floor by his . No noted fall but acting weak and has been confused. He does not have any hx of CAD or arrhythmias. and does not have hx of CHF and has COPD due to chronic exposure to secondary hand smoking when he used to work. He has not been having any chest pain, SOA or peripheral edema prior to his hospitalization. He does have significant hepatobiliary history as detailed below seen at [facility] and [facility] but no hx of ascites, cirrhosis and not VTE as well and has been tested 3x for covid 19 and negative with last check over a week ago. Vitals/I&O Vitals/I&O: Vital Signs Date Time Temp Pulse Resp B/P (MAP) Pulse Ox O2 Delivery O2 Flow Rate FiO2 03/17/20 12:00 97.9 83 90/59 (69) 97 Room Air 97.9 03/17/20 08:00 20 I & O 03/16/20 03/16/20 03/17/20 15:00 23:00 07:00 Intake Total 664 ml 245 ml 980 ml Output Total 2800 ml 950 ml Balance -2136 ml 245 ml 30 ml Physical Exam General: Alert, Cooperative, No acute distress Heart: Regular rate (SR), Normal S1, Normal S2, Other (2/6 systolic murmur to LLSborder) Lungs: Clear Abdomen: Soft, No tenderness Extremities: No cyanosis, No edema, Normal pulses Skin: No rashes, No breakdown, No significant lesion Labs Labs: Laboratory Tests Test 03/16/20 16:41 03/16/20 21:39 03/17/20 01:20 03/17/20 04:50 Glucose (Fingerstick) 152 mg/dL (70-99) 184 mg/dL (70-99) Troponin I Quantitative 0.085 ng/mL (0.000-0.055) 0.053 ng/mL (0.000-0.055) Sodium Level 134 mmol/L (136-145) Potassium Level 3.9 mmol/L (3.5-5.1) Chloride Level 101 mmol/L (98-107) Carbon Dioxide Level 25 mmol/L (21-32) Anion Gap 8 (6-14) Blood Urea Nitrogen 33 mg/dL (8-26) Creatinine 2.1 mg/dL (0.7-1.3) Estimated GFR (Cockcroft-Gault) 32.4 Glucose Level 129 mg/dL (70-99) Calcium Level 7.2 mg/dL (8.5-10.1) Phosphorus Level 3.5 mg/dL (2.6-4.7) Magnesium Level 2.0 mg/dL (1.8-2.4) Total Bilirubin 0.6 mg/dL (0.2-1.0) Direct Bilirubin 0.4 mg/dL (0.0-0.2) Aspartate Amino Transf (AST/SGOT) 56 U/L (15-37) Alanine Aminotransferase (ALT/SGPT) 47 U/L (16-63) Alkaline Phosphatase 177 U/L (46-116) Total Protein 4.9 g/dL (6.4-8.2) Albumin 1.2 g/dL (3.4-5.0) Test 03/17/20 07:48 03/17/20 11:00 03/17/20 11:53 Glucose (Fingerstick) 117 mg/dL (70-99) 88 mg/dL (70-99) White Blood Count 8.1 x10^3/uL (4.0-11.0) Red Blood Count 2.74 x10^6/uL (4.30-5.70) Hemoglobin 8.1 g/dL (13.0-17.5) Hematocrit 23.7 % (39.0-53.0) Mean Corpuscular Volume 87 fL (79-100) Mean Corpuscular Hemoglobin 30 pg (25-35) Mean Corpuscular Hemoglobin Concent 34 g/dL (31-37) Red Cell Distribution Width 17.5 % (11.5-14.5) Platelet Count 177 x10^3/uL (140-400) Neutrophils (%) (Auto) 81 % (31-73) Lymphocytes (%) (Auto) 11 % (24-48) Monocytes (%) (Auto) 6 % (0-9) Eosinophils (%) (Auto) 1 % (0-3) Basophils (%) (Auto) 1 % (0-3) Neutrophils # (Auto) 6.6 x10^3/uL (1.8-7.7) Lymphocytes # (Auto) 0.9 x10^3/uL (1.0-4.8) Monocytes # (Auto) 0.5 x10^3/uL (0.0-1.1) Eosinophils # (Auto) 0.1 x10^3/uL (0.0-0.7) Basophils # (Auto) 0.1 x10^3/uL (0.0-0.2) Sodium Level 134 mmol/L (136-145) Potassium Level 3.9 mmol/L (3.5-5.1) Chloride Level 100 mmol/L (98-107) Carbon Dioxide Level 24 mmol/L (21-32) Anion Gap 10 (6-14) Blood Urea Nitrogen 30 mg/dL (8-26) Creatinine 1.9 mg/dL (0.7-1.3) Estimated GFR (Cockcroft-Gault) 36.3 BUN/Creatinine Ratio 16 (6-20) Glucose Level 88 mg/dL (70-99) Calcium Level 7.4 mg/dL (8.5-10.1) Total Bilirubin 0.6 mg/dL (0.2-1.0) Aspartate Amino Transf (AST/SGOT) 63 U/L (15-37) Alanine Aminotransferase (ALT/SGPT) 52 U/L (16-63) Alkaline Phosphatase 216 U/L (46-116) Total Protein 5.5 g/dL (6.4-8.2) Albumin 1.4 g/dL (3.4-5.0) Albumin/Globulin Ratio 0.3 (1.0-1.7) Assessment and Plan Assessmemt and Plan Problems Medical Problems: (1) Acute kidney injury Status: Acute (2) Encephalopathy Status: Acute (3) Hypoglycemia Status: Acute (4) Hyponatremia Status: Acute (5) Seizure Status: Acute Assessment: - Possible bile leak after cholecystectomy on 12/25/19 - Stent placed 1 wk ago - Hx of RCC and left nephrectomy - mild congestive HF on chext x-ray - 10 x 8 cm hepatic mass consistent with metastasis seen on CT of abdomen Plan: - ICU monitoring - We will consult oncology regarding the mets in the liver - Await GI input - Trend labs, monitor Na+ - IV fluids - DVT prophylaxis - I resumed most of his home meds - IV antibiotics - Appreciate subspecialist input He is quite ill Total time 34-minute Comment Review of Relevant I have reviewed the following items clarisse (where applicable) has been applied. Medications: Current Medications Medications (Trade) Dose Ordered Sig/Tory Route PRN Reason Start Time Stop Time Status Last Admin Dose Admin Insulin Glargine (Lantus Syringe) 10 unit QHS SQ 03/16/20 21:00 03/16/20 21:41 Diphenhydramine HCl (Benadryl) 25 mg PRN Q6HRS PRN IVP ITCHING 03/16/20 13:45 03/16/20 13:41 Metoprolol Tartrate (Lopressor) 25 mg BID PO 03/16/20 15:30 03/16/20 15:35 Heparin Sodium (Porcine) (Heparin Sodium) 5,000 unit Q8HRS SQ 03/16/20 22:00 03/17/20 06:21 Ceftriaxone Sodium (Rocephin) 1 gm Q24H IVP 03/16/20 22:00 03/16/20 21:35 Sodium Chloride 154 meq/Dextrose 1,038.5 ml @ 75 mls/hr [id number] IV 03/17/20 04:45 03/17/20 13:10 DC 03/17/20 04:45 Justicifation of Admission Dx: Justifications for Admission: Justification of Admission Dx: Yes JACEY VALIENTE III DO Mar 17, 2020 13:29
[2020-03-17] MEDS ORDERED: ATENOLOL 25 MG TABLET. PO SCH (14:00)
[2020-03-17] MEDS ORDERED: NON FORMULARY ITEM (Ondansetron Hcl 8 MG) PO PRN (14:00)
--- NOTE | 2020-03-17 14:29 | NUR ---
SS following up with discharge planning. SS reviewed pt chart and discussed with pt RN. Pt is currently on room air and IV Rocephin. CT scan showed mass on liver. Oncology consulted. SS will continue to follow for discharge planning.
--- NOTE | 2020-03-17 16:29 | PDOC2 ---
CONSULT Date of Consult Date of Consult DATE: 03/17/20 TIME: 16:20 Reason for Consult Reason for Consult: History of renal cell carcinoma status post nephrectomy in 2009, now with liver mass Referring Physician Referring Physician: Dr. Katz Identification/Chief Complaint Chief Complaint Altered mental status Problems: (1) Renal cell carcinoma (2) Liver mass Source Source: Caregiver, Chart review History of Present Illness Reason for Visit: Palomo Corona is a 59-year-old man with reported history of renal cell carcinoma status post nephrectomy in 2009 who has been admitted to the hospital with altered mental status. His hospital evaluation initially showed hyponatremia. CT of the abdomen was obtained and showed a large 10 cm size liver mass. Per chart review, his had reported progressive decline in his health over the last month. He had also lost substantial amounts of weight over the past few months. Per , he has had intermittent episodes of confusion ever since his cholecystectomy at [facility] on 12/25/2019. He was recently hospitalized and received percutaneous biliary drain placement. He has no prior history of alcohol use per chart review. Patient is unable to cooperate and provide additional history due to his current mental status. Oncology has been consulted in view of his large liver mass. Past Medical History Cardiovascular: HTN, Hyperlipidemia Pulmonary: COPD CENTRAL NERVOUS SYSTEM: Carpal Tunnel Syndrome GI: GERD, Peptic Ulcer disease (recently noted prepyloric ulcers in 03/10/2020 via EGD) Heme/Onc: Cancer (renal) Hepatobiliary: Other (liver hemangioma with biopsy) Psych: Anxiety Musculoskeletal: Osteoarthritis, Other (cervical stenosis; chronic opioid use) Renal/: Chronic renal insuff Endocrine: Diabetes (2) Dermatology: Other (foot ulcer) Past Surgical History Past Surgical History: Hernia Repair, Other (elbow surgery; left achilles re pair; left nephrectomy, septoplasty; back surgery) Family History Family History: Coronary Artery Disease (father), Diabetes (sister), Hypertension (mother) Social History No ALCOHOL: none Drugs: None Lives: with Family Current Problem List Problem List Problems Medical Problems: (1) Acute kidney injury Status: Acute (2) Encephalopathy Status: Acute (3) Hypoglycemia Status: Acute (4) Hyponatremia Status: Acute (5) Seizure Status: Acute Current Medications Current Medications Current Medications Haloperidol Lactate (Haldol Inj) 5 mg 1X ONCE IM Last administered on 03/15/20at 19:30; Start 03/15/20 at 20:00; Stop 03/15/20 at 20:01; Status DC Diphenhydramine HCl (Benadryl) 50 mg 1X ONCE IM Last administered on 03/15/20at 19:30; Start 03/15/20 at 20:00; Stop 03/15/20 at 20:01; Status DC Lorazepam (Ativan Inj) 1 mg 1X ONCE IVP Last administered on 03/15/20at 20:55; Start 03/15/20 at 20:00; Stop 03/15/20 at 20:01; Status DC Dextrose (Dextrose 50%-Water Syringe) 25 gm 1X ONCE IV ; Start 03/15/20 at 21:30; Stop 03/15/20 at 21:23; Status DC Dextrose 1,000 ml @ 75 mls/hr 1X ONCE IV Last administered on 03/15/20at 21:03; Start 03/15/20 at 21:30; Stop 03/15/20 at 21:23; Status DC Sodium Chloride 154 meq/Dextrose 1,038.5 ml @ 75 mls/hr [id number] IV Last administered on 03/16/20at 12:30; Start 03/15/20 at 22:00; Stop 03/16/20 at 21:59; Status DC Ceftriaxone Sodium (Rocephin) 2 gm 1X ONCE IVP Last administered on 03/15/20at 22:36; Start 03/15/20 at 22:00; Stop 03/15/20 at 22:01; Status DC Ondansetron HCl (Zofran) 4 mg PRN Q8HRS PRN IV NAUSEA/VOMITING 1ST CHOICE; S tart 03/15/20 at 21:30; Stop 03/16/20 at 20:48; Status DC Lorazepam (Ativan Inj) 2 mg 1X ONCE IVP Last administered on 03/15/20at 23:37; Start 03/15/20 at 23:45; Stop 03/15/20 at 23:46; Status DC Lorazepam (Ativan Inj) 1 mg PRN Q4HRS PRN IVP ANXIETY / AGITATION Last administered on 03/16/20at 13:58; Start 03/16/20 at 03:15 Amlodipine Besylate (Norvasc) 10 mg DAILY PO Last administered on 03/16/20at 09:39; Start 03/16/20 at 09:00 Atorvastatin Calcium (Lipitor) 20 mg QHS PO ; Start 03/16/20 at 21:00 Diclofenac Sodium (Voltaren) 1 rama PRN QID PRN TP PAIN; Start 03/16/20 at 08:00 Lidocaine (Lidoderm) 1 patch PRN DAILY PRN TP TOPICAL PAIN; Start 03/16/20 at 08:00; Stop 03/17/20 at 07:16; Status DC Montelukast Sodium (Singulair) 10 mg DAILY PO Last administered on 03/17/20at 07:51; Start 03/16/20 at 09:00 Polyethylene Glycol (miraLAX PACKET) 17 gm PRN DAILY PRN PO CONSTIPATION; Star t 03/16/20 at 08:00 Non-Formulary Medication (Albuterol Sulfate (Ventolin Hfa Inhaler)) 2 puff PRN Q4-6HRS IH ; Start 03/16/20 at 08:00; Status UNV Duloxetine HCl (Cymbalta) 60 mg BID PO Last administered on 03/17/20at 07:51; Start 03/16/20 at 09:00 Insulin Glargine (Lantus Syringe) 10 unit QHS SQ Last administered on 03/16/20at 21:41; Start 03/16/20 at 21:00 Pantoprazole Sodium (Protonix) 40 mg DAILYAC PO Last administered on 03/17/20at 07:50; Start 03/16/20 at 08:30 Linagliptin (Tradjenta) 5 mg DAILY PO Last administered on 03/17/20at 07:50; Start 03/16/20 at 09:00 Insulin Human Lispro (HumaLOG) 0-7 UNITS TIDACHC SQ ; Start 03/16/20 at 11:30 Dextrose (Dextrose 50%-Water Syringe) 12.5 gm PRN Q15MIN PRN IV SEE COMMENTS; Start 03/16/20 at 08:00 Albuterol Sulfate (Ventolin Neb Soln) 2.5 mg PRN Q4HRS PRN NEB SHORTNESS OF BREATH; Start 03/16/20 at 08:30 Haloperidol Lactate (Haldol Inj) 5 mg PRN Q6HRS PRN IVP AGITATION Last administered on 03/16/20at 18:15; Start 03/16/20 at 10:45 Fentanyl Citrate (Fentanyl 2ml Vial) 25 mcg PRN Q3HRS PRN IVP MOD-SEVERE PAIN Last administered on 03/16/20at 12:33; Start 03/16/20 at 11:00 Diphenhydramine HCl (Benadryl) 25 mg PRN Q6HRS PRN IVP ITCHING Last administered on 03/16/20at 13:41; Start 03/16/20 at 13:45 Metoprolol Tartrate (Lopressor) 25 mg BID PO Last administered on 03/16/20at 15:35; Start 03/16/20 at 15:30 Ondansetron HCl (Zofran) 4 mg PRN Q4HRS PRN IV NAUSEA/VOMITING 1ST CHOICE; Start 03/16/20 at 21:00 Heparin Sodium (Porcine) (Heparin Sodium) 5,000 unit Q8HRS SQ Last administered on 03/17/20at 14:09; Start 03/16/20 at 22:00 Ceftriaxone Sodium (Rocephin) 1 gm Q24H IVP Last administered on 03/16/20at 21:35; Start 03/16/20 at 22:00 Acetaminophen (Tylenol Supp) 650 mg PRN Q6HRS PRN ID MILD PAIN / TEMP > 100.3'F; Start 03/16/20 at 23:00 Sodium Chloride 154 meq/Dextrose 1,038.5 ml @ 75 mls/hr [id number] IV Last administered on 03/17/20at 04:45; Start 03/17/20 at 04:45; Stop 03/17/20 at 13:10; Status DC Dextrose/Sodium Chloride 1,000 ml @ 75 mls/hr [id number] IV ; Start 03/17/20 at 17:30 Atenolol (Tenormin) 25 mg DAILY PO ; Start 03/17/20 at 14:00; Stop 03/17/20 at 14:42; Status DC Lorazepam (Ativan) 1 mg PRN BID PRN PO ANXIETY / AGITATION; Start 03/17/20 at 14:00 Tizanidine HCl (Zanaflex) 4 mg PRN Q6HRS PRN PO MUSCLE PAIN; Start 03/17/20 at 14:00 Diclofenac Sodium (Voltaren) 75 mg BID PO ; Start 03/17/20 at 21:00 Non-Formulary Medication (Ondansetron Hcl ) 8 mg PRN BID PRN PO NAUSEA/VOMITING; Start 03/17/20 at 14:00 Oxycodone HCl (Roxicodone) 15 mg PRN Q6HRS PRN PO MODERATE TO SEVERE PAIN; Start 03/17/20 at 14:15 Active Scripts Active Miralax (Polyethylene Glycol 3350) 17 Gm Powd.pack 1 Pkt PO PRN DAILY PRN Reported Etodolac 400 Mg Tablet 1 Tab PO BID Ondansetron Hcl 8 Mg Tablet 8 Mg PO BID PRN Oxycodone Hcl Immed.release (Oxycodone Hcl) 15 Mg Tablet 15 Mg PO PRN Q6HRS PRN Montelukast Sodium Tablet (Montelukast Sodium) 10 Mg Tablet 10 Mg PO DAILY Basaglar Kwikpen U-100 (Insulin Glargine,Hum.rec.anlog) 100 Unit/1 Ml Insuln.pen 50 Unit SQ HS Prilosec Otc (Omeprazole Magnesium) 20 Mg Tablet.dr 1 Tab PO DAILY Novolog Flexpen (Insulin Aspart) 100 Unit/1 Ml Insuln.pen 1 Unit SQ 15-20 UNITS WITH MEALS TO MAX OF 80 UNITS DAILY Atorvastatin Calcium 20 Mg Tablet 1 Tab PO DAILY Januvia (Sitagliptin Phosphate) 50 Mg Tablet 1 Tab PO DAILY Tizanidine Hcl 4 Mg Tablet 1 Tab PO Q6HRS PRN can have 1-2 tabs Lidoderm (Lidocaine) 700 Mg Adh..patch 1 Patch TP DAILY PRN Ativan (Lorazepam) 1 Mg Tablet 1 Mg PO BID PRN Amlodipine Besylate 10 Mg Tablet 10 Mg PO DAILY Atenolol 25 Mg Tablet 1 Tab PO DAILY Voltaren (Diclofenac Sodium) 100 Gm Gel..gram. 1 Gm TP QID PRN Ventolin Hfa Inhaler (Albuterol Sulfate) 18 Gm Hfa.aer.ad 2 Puff IH PRN Q4-6HRS Cymbalta (Duloxetine Hcl) 60 Mg Capsule. 60 Mg PO BID Allergies Allergies: Coded Allergies: clindamycin (Verified Allergy, Intermediate, 02/17/16) levofloxacin (Verified Allergy, Intermediate, 01/06/17) morphine (Verified Allergy, Intermediate, 02/17/16) prednisone (Verified Allergy, Intermediate, 01/06/17) pramipexole (Verified Adverse Reaction, Intermediate, 02/17/16) muscle and joint aches ROS Review of System Unable to obtain review of systems due to the patient's current mental status Physical Exam General: Alert, No acute distress HEENT: Atraumatic Lungs: Clear to auscultation Heart: Regular rate, No murmurs Abdomen: Normal bowel sounds, Soft, No tenderness Skin: No rashes Neuro: Normal gait Psych/Mental Status: Mood NL MUSCULOSKELETAL: No swelling Vitals VITALS Vital Signs Date Time Temp Pulse Resp B/P (MAP) Pulse Ox O2 Delivery O2 Flow Rate FiO2 03/17/20 14:09 88 94/58 03/17/20 12:00 97.9 97 Room Air 97.9 03/17/20 08:00 20 Labs Labs Laboratory Tests Test 03/15/20 19:36 03/15/20 20:17 03/15/20 20:50 03/15/20 21:30 Glucose (Fingerstick) 85 mg/dL (70-99) 80 mg/dL (70-99) 62 mg/dL (70-99) White Blood Count 17.2 x10^3/uL (4.0-11.0) Red Blood Count 2.73 x10^6/uL (4.30-5.70) Hemoglobin 8.2 g/dL (13.0-17.5) Hematocrit 23.4 % (39.0-53.0) Mean Corpuscular Volume 86 fL (79-100) Mean Corpuscular Hemoglobin 30 pg (25-35) Mean Corpuscular Hemoglobin Concent 35 g/dL (31-37) Red Cell Distribution Width 16.9 % (11.5-14.5) Platelet Count 244 x10^3/uL (140-400) Neutrophils (%) (Auto) 97 % (31-73) Lymphocytes (%) (Auto) 2 % (24-48) Monocytes (%) (Auto) 2 % (0-9) Eosinophils (%) (Auto) 0 % (0-3) Basophils (%) (Auto) 0 % (0-3) Neutrophils # (Auto) 16.6 x10^3/uL (1.8-7.7) Lymphocytes # (Auto) 0.3 x10^3/uL (1.0-4.8) Monocytes # (Auto) 0.3 x10^3/uL (0.0-1.1) Eosinophils # (Auto) 0.0 x10^3/uL (0.0-0.7) Basophils # (Auto) 0.0 x10^3/uL (0.0-0.2) Segmented Neutrophils % 66 % (35-66) Band Neutrophils % 23 % (0-9) Lymphocytes % 9 % (24-48) Monocytes % 2 % (0-10) Toxic Vacuolation Slight Dohle Bodies Few Platelet Estimate Adequate (ADEQUATE) Prothrombin Time 16.0 SEC (11.7-14.0) Prothromb Time International Ratio 1.3 (0.8-1.1) Activated Partial Thromboplast Time 32 SEC (24-38) Sodium Level 123 mmol/L (136-145) Potassium Level 4.7 mmol/L (3.5-5.1) Chloride Level 87 mmol/L (98-107) Carbon Dioxide Level 22 mmol/L (21-32) Anion Gap 14 (6-14) Blood Urea Nitrogen 49 mg/dL (8-26) Creatinine 3.4 mg/dL (0.7-1.3) Estimated GFR (Cockcroft-Gault) 18.6 BUN/Creatinine Ratio 14 (6-20) Glucose Level 97 mg/dL (70-99) Lactic Acid Level 3.8 mmol/L (0.4-2.0) Calcium Level 7.7 mg/dL (8.5-10.1) Magnesium Level 1.7 mg/dL (1.8-2.4) Total Bilirubin 1.2 mg/dL (0.2-1.0) Aspartate Amino Transf (AST/SGOT) 84 U/L (15-37) Alanine Aminotransferase (ALT/SGPT) 66 U/L (16-63) Alkaline Phosphatase 228 U/L (46-116) Ammonia < 10 mcmol/L (11-34) Creatine Kinase 129 U/L (39-308) Troponin I Quantitative 0.052 ng/mL (0.000-0.055) UR-Mdg-C-Type Natriuretic Peptide 54079 pg/mL (0-124) Total Protein 5.4 g/dL (6.4-8.2) Albumin 1.7 g/dL (3.4-5.0) Albumin/Globulin Ratio 0.5 (1.0-1.7) Urine Collection Type U cath Urine Color Yellow Urine Clarity Cloudy Urine pH 5.0 (<5.0-8.0) Urine Specific [place] 1.010 (1.000-1.030) Urine Protein 30 mg/dL (NEG-TRACE) Urine Glucose (UA) Negative mg/dL (NEG) Urine Ketones (Stick) Negative mg/dL (NEG) Urine Blood Trace (NEG) Urine Nitrite Negative (NEG) Urine Bilirubin Large (NEG) Urine Urobilinogen Dipstick 1.0 mg/dL (0.2 mg/dL) Urine Leukocyte Esterase Negative (NEG) Urine RBC Occ /HPF (0-2) Urine WBC Occ /HPF (0-4) Urine Squamous Epithelial Cells Occ /LPF Urine Amorphous Sediment Present /HPF Urine Bacteria Few /HPF (0-FEW) Urine Opiates Screen Neg (NEG) Urine Methadone Screen Neg (NEG) Urine Barbiturates Neg (NEG) Urine Phencyclidine Screen Neg (NEG) Urine Amphetamine/Methamphetamine Neg (NEG) Urine Benzodiazepines Screen Neg (NEG) Urine Cocaine Screen Neg (NEG) Urine Cannabinoids Screen Neg (NEG) Urine Ethyl Alcohol Neg (NEG) Test 03/16/20 00:25 03/16/20 03:33 03/16/20 07:56 03/16/20 11:28 Lactic Acid Level 1.6 mmol/L (0.4-2.0) Glucose (Fingerstick) 76 mg/dL (70-99) 88 mg/dL (70-99) Sodium Level 129 mmol/L (136-145) Potassium Level 4.3 mmol/L (3.5-5.1) Chloride Level 94 mmol/L (98-107) Carbon Dioxide Level 26 mmol/L (21-32) Anion Gap 9 (6-14) Blood Urea Nitrogen 43 mg/dL (8-26) Creatinine 2.9 mg/dL (0.7-1.3) Estimated GFR (Cockcroft-Gault) 22.3 BUN/Creatinine Ratio 15 (6-20) Glucose Level 126 mg/dL (70-99) Calcium Level 7.8 mg/dL (8.5-10.1) Magnesium Level 1.9 mg/dL (1.8-2.4) Total Bilirubin 0.9 mg/dL (0.2-1.0) Aspartate Amino Transf (AST/SGOT) 64 U/L (15-37) Alanine Aminotransferase (ALT/SGPT) 61 U/L (16-63) Alkaline Phosphatase 226 U/L (46-116) Total Protein 5.8 g/dL (6.4-8.2) Albumin 1.6 g/dL (3.4-5.0) Albumin/Globulin Ratio 0.4 (1.0-1.7) Test 03/16/20 11:30 03/16/20 16:41 03/16/20 21:39 03/17/20 01:20 White Blood Count 12.5 x10^3/uL (4.0-11.0) Red Blood Count 2.87 x10^6/uL (4.30-5.70) Hemoglobin 8.4 g/dL (13.0-17.5) Hematocrit 24.7 % (39.0-53.0) Mean Corpuscular Volume 86 fL (79-100) Mean Corpuscular Hemoglobin 29 pg (25-35) Mean Corpuscular Hemoglobin Concent 34 g/dL (31-37) Red Cell Distribution Width 17.2 % (11.5-14.5) Platelet Count 231 x10^3/uL (140-400) Neutrophils (%) (Auto) 94 % (31-73) Lymphocytes (%) (Auto) 2 % (24-48) Monocytes (%) (Auto) 2 % (0-9) Eosinophils (%) (Auto) 1 % (0-3) Basophils (%) (Auto) 0 % (0-3) Neutrophils # (Auto) 11.8 x10^3/uL (1.8-7.7) Lymphocytes # (Auto) 0.2 x10^3/uL (1.0-4.8) Monocytes # (Auto) 0.3 x10^3/uL (0.0-1.1) Eosinophils # (Auto) 0.2 x10^3/uL (0.0-0.7) Basophils # (Auto) 0.0 x10^3/uL (0.0-0.2) Iron Level 15 ug/dL (65-175) Total Iron Binding Capacity 111 ug/dL (250-450) Iron Saturation 14 % (15-34) Glucose (Fingerstick) 152 mg/dL (70-99) 184 mg/dL (70-99) Troponin I Quantitative 0.085 ng/mL (0.000-0.055) Test 03/17/20 04:50 03/17/20 07:48 03/17/20 11:00 03/17/20 11:53 Sodium Level 134 mmol/L (136-145) 134 mmol/L (136-145) Potassium Level 3.9 mmol/L (3.5-5.1) 3.9 mmol/L (3.5-5.1) Chloride Level 101 mmol/L (98-107) 100 mmol/L (98-107) Carbon Dioxide Level 25 mmol/L (21-32) 24 mmol/L (21-32) Anion Gap 8 (6-14) 10 (6-14) Blood Urea Nitrogen 33 mg/dL (8-26) 30 mg/dL (8-26) Creatinine 2.1 mg/dL (0.7-1.3) 1.9 mg/dL (0.7-1.3) Estimated GFR (Cockcroft-Gault) 32.4 36.3 Glucose Level 129 mg/dL (70-99) 88 mg/dL (70-99) Calcium Level 7.2 mg/dL (8.5-10.1) 7.4 mg/dL (8.5-10.1) Phosphorus Level 3.5 mg/dL (2.6-4.7) Magnesium Level 2.0 mg/dL (1.8-2.4) Total Bilirubin 0.6 mg/dL (0.2-1.0) 0.6 mg/dL (0.2-1.0) Direct Bilirubin 0.4 mg/dL (0.0-0.2) Aspartate Amino Transf (AST/SGOT) 56 U/L (15-37) 63 U/L (15-37) Alanine Aminotransferase (ALT/SGPT) 47 U/L (16-63) 52 U/L (16-63) Alkaline Phosphatase 177 U/L (46-116) 216 U/L (46-116) Troponin I Quantitative 0.053 ng/mL (0.000-0.055) Total Protein 4.9 g/dL (6.4-8.2) 5.5 g/dL (6.4-8.2) Albumin 1.2 g/dL (3.4-5.0) 1.4 g/dL (3.4-5.0) Glucose (Fingerstick) 117 mg/dL (70-99) 88 mg/dL (70-99) White Blood Count 8.1 x10^3/uL (4.0-11.0) Red Blood Count 2.74 x10^6/uL (4.30-5.70) Hemoglobin 8.1 g/dL (13.0-17.5) Hematocrit 23.7 % (39.0-53.0) Mean Corpuscular Volume 87 fL (79-100) Mean Corpuscular Hemoglobin 30 pg (25-35) Mean Corpuscular Hemoglobin Concent 34 g/dL (31-37) Red Cell Distribution Width 17.5 % (11.5-14.5) Platelet Count 177 x10^3/uL (140-400) Neutrophils (%) (Auto) 81 % (31-73) Lymphocytes (%) (Auto) 11 % (24-48) Monocytes (%) (Auto) 6 % (0-9) Eosinophils (%) (Auto) 1 % (0-3) Basophils (%) (Auto) 1 % (0-3) Neutrophils # (Auto) 6.6 x10^3/uL (1.8-7.7) Lymphocytes # (Auto) 0.9 x10^3/uL (1.0-4.8) Monocytes # (Auto) 0.5 x10^3/uL (0.0-1.1) Eosinophils # (Auto) 0.1 x10^3/uL (0.0-0.7) Basophils # (Auto) 0.1 x10^3/uL (0.0-0.2) BUN/Creatinine Ratio 16 (6-20) Albumin/Globulin Ratio 0.3 (1.0-1.7) Laboratory Tests Test 03/16/20 16:41 03/16/20 21:39 03/17/20 01:20 03/17/20 04:50 Glucose (Fingerstick) 152 mg/dL (70-99) 184 mg/dL (70-99) Troponin I Quantitative 0.085 ng/mL (0.000-0.055) 0.053 ng/mL (0.000-0.055) Sodium Level 134 mmol/L (136-145) Potassium Level 3.9 mmol/L (3.5-5.1) Chloride Level 101 mmol/L (98-107) Carbon Dioxide Level 25 mmol/L (21-32) Anion Gap 8 (6-14) Blood Urea Nitrogen 33 mg/dL (8-26) Creatinine 2.1 mg/dL (0.7-1.3) Estimated GFR (Cockcroft-Gault) 32.4 Glucose Level 129 mg/dL (70-99) Calcium Level 7.2 mg/dL (8.5-10.1) Phosphorus Level 3.5 mg/dL (2.6-4.7) Magnesium Level 2.0 mg/dL (1.8-2.4) Total Bilirubin 0.6 mg/dL (0.2-1.0) Direct Bilirubin 0.4 mg/dL (0.0-0.2) Aspartate Amino Transf (AST/SGOT) 56 U/L (15-37) Alanine Aminotransferase (ALT/SGPT) 47 U/L (16-63) Alkaline Phosphatase 177 U/L (46-116) Total Protein 4.9 g/dL (6.4-8.2) Albumin 1.2 g/dL (3.4-5.0) Test 03/17/20 07:48 03/17/20 11:00 03/17/20 11:53 Glucose (Fingerstick) 117 mg/dL (70-99) 88 mg/dL (70-99) White Blood Count 8.1 x10^3/uL (4.0-11.0) Red Blood Count 2.74 x10^6/uL (4.30-5.70) Hemoglobin 8.1 g/dL (13.0-17.5) Hematocrit 23.7 % (39.0-53.0) Mean Corpuscular Volume 87 fL (79-100) Mean Corpuscular Hemoglobin 30 pg (25-35) Mean Corpuscular Hemoglobin Concent 34 g/dL (31-37) Red Cell Distribution Width 17.5 % (11.5-14.5) Platelet Count 177 x10^3/uL (140-400) Neutrophils (%) (Auto) 81 % (31-73) Lymphocytes (%) (Auto) 11 % (24-48) Monocytes (%) (Auto) 6 % (0-9) Eosinophils (%) (Auto) 1 % (0-3) Basophils (%) (Auto) 1 % (0-3) Neutrophils # (Auto) 6.6 x10^3/uL (1.8-7.7) Lymphocytes # (Auto) 0.9 x10^3/uL (1.0-4.8) Monocytes # (Auto) 0.5 x10^3/uL (0.0-1.1) Eosinophils # (Auto) 0.1 x10^3/uL (0.0-0.7) Basophils # (Auto) 0.1 x10^3/uL (0.0-0.2) Sodium Level 134 mmol/L (136-145) Potassium Level 3.9 mmol/L (3.5-5.1) Chloride Level 100 mmol/L (98-107) Carbon Dioxide Level 24 mmol/L (21-32) Anion Gap 10 (6-14) Blood Urea Nitrogen 30 mg/dL (8-26) Creatinine 1.9 mg/dL (0.7-1.3) Estimated GFR (Cockcroft-Gault) 36.3 BUN/Creatinine Ratio 16 (6-20) Glucose Level 88 mg/dL (70-99) Calcium Level 7.4 mg/dL (8.5-10.1) Total Bilirubin 0.6 mg/dL (0.2-1.0) Aspartate Amino Transf (AST/SGOT) 63 U/L (15-37) Alanine Aminotransferase (ALT/SGPT) 52 U/L (16-63) Alkaline Phosphatase 216 U/L (46-116) Total Protein 5.5 g/dL (6.4-8.2) Albumin 1.4 g/dL (3.4-5.0) Albumin/Globulin Ratio 0.3 (1.0-1.7) Images Images Reviewed results of CT abdomen Assessment/Plan Assessment/Plan Assessment: Liver mass History of renal cell carcinoma Altered mental status Recent placement of percutaneous biliary drain Recommendations: Request records from [facility] regarding recent hospitalization and prior renal cell carcinoma surgery Recommend IR biopsy of liver lesion Can discuss prognosis and treatment options based on hospital course and findings of outside records and biopsy Thank you for the consult Eleazar Perez MD Medical Oncology/Hematology Ph: [phone] JULIO CÉSAR PEREZ MD Mar 17, 2020 16:29
[2020-03-17] MEDS: oxyCODONE IR 5 MG TABLET PO PRN (16:33)
[2020-03-17] MEDS: IV DEXTROSE 5 %-0.45 % NACL 1,000 ML IV SCH (18:14)
--- NOTE | 2020-03-17 18:38 | NUR ---
Patient transfer to room 538 from ICU room 103 at 1745. Telephone report given to Ayse Villasenor. Patient did not have any personal belongings.
[2020-03-17] MEDS ORDERED: METOPROLOL TARTRATE 5 MG/5 ML VIAL. IVP ONE (19:30)
--- NOTE | 2020-03-17 20:06 | NUR ---
Patient V/S BP 155/80, Temp 104.8 P 145, R 31, Spo2 94% RA, FSBS Dr. Angie draper, Dr. Duval to return call.
[2020-03-17] MEDS ORDERED: KETOROLAC 15 MG/ML VIAL. IVP ONE (20:15)
[2020-03-17] MEDS ORDERED: PIP/TAZO PER PHARMACY MC PRN (20:30)
[2020-03-17] MEDS: ACETAMINOPHEN 650 MG SUPP.RECT. PR PRN (20:34)
[2020-03-17] MEDS ORDERED: METOPROLOL TART IMMED RELEASE 25 MG TABLET. PO ONE (21:00)
[2020-03-17] MEDS ORDERED: DICLOFENAC SODIUM 25 MG TABLET.DR PO SCH (21:00)
[2020-03-17] MEDS: PIPERACILLIN/TAZOBACTAM 3.375 GM in IV NORMAL SALINE 50ML 50 ML IV SCH (21:03)
[2020-03-17] MEDS: INSULIN GLARGINE SYRINGE. SQ SCH (22:17)
[2020-03-17] MEDS: fentaNYL PF VIAL 100 MCG/2 ML VIAL IVP PRN (23:17)
[2020-03-18] VITALS (18 sets, daily range): BP systolic 79–149; BP diastolic 49–79
[2020-03-18] MEDS: IV DEXTROSE 5 %-0.45 % NACL 1,000 ML IV SCH (02:00)
[2020-03-18] MEDS: PIPERACILLIN/TAZOBACTAM 3.375 GM in IV NORMAL SALINE 50ML 50 ML IV SCH ×2 (02:01→08:37)
[2020-03-18] MEDS: fentaNYL PF VIAL 100 MCG/2 ML VIAL IVP PRN ×2 (03:46→09:54)
[2020-03-18] MEDS: PANTOPRAZOLE 40 MG TABLET.DR. PO SCH (04:58)
[2020-03-18] MEDS: HEPARIN for SUB-Q USE 5,000 UNIT/ML VIAL. SQ SCH (05:01)
[2020-03-18 05:43] LABS: RED BLOOD COUNT 2.32 x10^6/uL (4.30-5.70); RED CELL DISTRIBUTION WIDTH 17.7 % (11.5-14.5); WHITE BLOOD COUNT 8.4 x10^3/uL (4.0-11.0)
[2020-03-18 05:45] LABS: CALCIUM 6.4 mg/dL (8.5-10.1); GFR 34.3; HEMATOCRIT 19.9 % (39.0-53.0); HEMOGLOBIN 6.8 g/dL (13.0-17.5); POTASSIUM 4.1 mmol/L (3.5-5.1)
[2020-03-18 05:54] LABS: ALBUMIN 1.2 g/dL (3.4-5.0); DIRECT BILIRUBIN 0.4 mg/dL (0.0-0.2); TOTAL BILIRUBIN 0.6 mg/dL (0.2-1.0); TOTAL PROTEIN 4.6 g/dL (6.4-8.2)
[2020-03-18] MEDS: INSULIN LISPRO 300 UNITS/3 ML VIAL. SQ SCH ×4 (07:30→21:00)
--- NOTE | 2020-03-18 08:25 | PDOC ---
PROGRESS NOTES Chief Complaint Chief Complaint Hyponatremia Liver mass History of renal cell carcinoma Altered mental status Recent placement of percutaneous biliary drain Severe sepsis Gram negative bacteremia COPD - will cont home nebs History of Present Illness History of Present Illness Mr Corona is a 59yo M w/ PMHx chronic Bronchitis, RCC s/p left nephrectomy 2009, Diabetes-Type II, High Cholesterol, Hypertension, 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 She notes he has had a progressive decline over the last month or so. Patient is encephalopathic and unable to answer questions. Patient given glucagon prior to arrival and blood sugar improved from 55-83. notes issues w/ confusion since cholecystectomy at on 12/25/19. notes an IR drain was placed after a readmission for worsening and remained in place for 3 weeks and was removed at the end of January, then he returned for common bile duct stent placement last week. She notes that she was told that he had a "small spot" on his liver at [facility] and that his sodium was "better" at 129 last week. She also notes he has lost 46# in the past 2 months and she is not aware of any diagnosis for him. Patient is not even speaking, he is moaning and writhing in bed. Has been tested 3x for covid 19 and negative with last check over a week ago. CXR with pulmonary vasculare congestion and CT head negative for acute process. Labs significant for WBC 17.2, Hb 8.2, platelets 244, INR 1.3, Na 123, K 4.7, BUN 49, Cr 3.4, Albumin 1.7, Glucose 97, Mg 1.7, AST 84, ALT 66, Alk phos 228, Bili 1.2. BNP 63612 Admitted to ICU for further care. Overnight transferred from ICU febrile to 104.8 F overnight. Was tachycardic, improved with IV fluids and home metoprolol dosing. Less confused. Hb 6.8. VS stabilized after initiation of zosyn. Addendum: Called at 1130 for worsening respiratory rate and blood in stool. CXR with poor inspiratory effort and mild fluid overload. Pulmonology consulted, BIPAP ordered for comfort with respiratory rate of 42/min CC time 74 minutes Vitals Vitals Vital Signs Date Time Temp Pulse Resp B/P (MAP) Pulse Ox O2 Delivery O2 Flow Rate FiO2 03/18/20 07:35 97.4 69 20 97/49 (65) 96 Room Air 97.4 Physical Exam General: Alert, Cooperative, No acute distress Heart: Regular rate, No murmurs Lungs: Wheezing Abdomen: Normal bowel sounds, Soft, No tenderness Extremities: No cyanosis, No edema, Normal pulses Skin: No rashes Labs LABS Laboratory Tests Test 03/17/20 11:00 03/17/20 11:53 03/17/20 17:06 03/17/20 19:52 White Blood Count 8.1 x10^3/uL (4.0-11.0) Red Blood Count 2.74 x10^6/uL (4.30-5.70) Hemoglobin 8.1 g/dL (13.0-17.5) Hematocrit 23.7 % (39.0-53.0) Mean Corpuscular Volume 87 fL (79-100) Mean Corpuscular Hemoglobin 30 pg (25-35) Mean Corpuscular Hemoglobin Concent 34 g/dL (31-37) Red Cell Distribution Width 17.5 % (11.5-14.5) Platelet Count 177 x10^3/uL (140-400) Neutrophils (%) (Auto) 81 % (31-73) Lymphocytes (%) (Auto) 11 % (24-48) Monocytes (%) (Auto) 6 % (0-9) Eosinophils (%) (Auto) 1 % (0-3) Basophils (%) (Auto) 1 % (0-3) Neutrophils # (Auto) 6.6 x10^3/uL (1.8-7.7) Lymphocytes # (Auto) 0.9 x10^3/uL (1.0-4.8) Monocytes # (Auto) 0.5 x10^3/uL (0.0-1.1) Eosinophils # (Auto) 0.1 x10^3/uL (0.0-0.7) Basophils # (Auto) 0.1 x10^3/uL (0.0-0.2) Sodium Level 134 mmol/L (136-145) Potassium Level 3.9 mmol/L (3.5-5.1) Chloride Level 100 mmol/L (98-107) Carbon Dioxide Level 24 mmol/L (21-32) Anion Gap 10 (6-14) Blood Urea Nitrogen 30 mg/dL (8-26) Creatinine 1.9 mg/dL (0.7-1.3) Estimated GFR (Cockcroft-Gault) 36.3 BUN/Creatinine Ratio 16 (6-20) Glucose Level 88 mg/dL (70-99) Calcium Level 7.4 mg/dL (8.5-10.1) Total Bilirubin 0.6 mg/dL (0.2-1.0) Aspartate Amino Transf (AST/SGOT) 63 U/L (15-37) Alanine Aminotransferase (ALT/SGPT) 52 U/L (16-63) Alkaline Phosphatase 216 U/L (46-116) Total Protein 5.5 g/dL (6.4-8.2) Albumin 1.4 g/dL (3.4-5.0) Albumin/Globulin Ratio 0.3 (1.0-1.7) Glucose (Fingerstick) 88 mg/dL (70-99) 102 mg/dL (70-99) 97 mg/dL (70-99) Test 03/18/20 05:10 03/18/20 08:00 White Blood Count 8.4 x10^3/uL (4.0-11.0) Red Blood Count 2.32 x10^6/uL (4.30-5.70) Hemoglobin 6.8 g/dL (13.0-17.5) Hematocrit 19.9 % (39.0-53.0) Mean Corpuscular Volume 86 fL (79-100) Mean Corpuscular Hemoglobin 29 pg (25-35) Mean Corpuscular Hemoglobin Concent 34 g/dL (31-37) Red Cell Distribution Width 17.7 % (11.5-14.5) Platelet Count 108 x10^3/uL (140-400) Sodium Level 131 mmol/L (136-145) Potassium Level 4.1 mmol/L (3.5-5.1) Chloride Level 99 mmol/L (98-107) Carbon Dioxide Level 22 mmol/L (21-32) Anion Gap 10 (6-14) Blood Urea Nitrogen 29 mg/dL (8-26) Creatinine 2.0 mg/dL (0.7-1.3) Estimated GFR (Cockcroft-Gault) 34.3 Glucose Level 193 mg/dL (70-99) Calcium Level 6.4 mg/dL (8.5-10.1) Total Bilirubin 0.6 mg/dL (0.2-1.0) Direct Bilirubin 0.4 mg/dL (0.0-0.2) Aspartate Amino Transf (AST/SGOT) 44 U/L (15-37) Alanine Aminotransferase (ALT/SGPT) 41 U/L (16-63) Alkaline Phosphatase 182 U/L (46-116) Total Protein 4.6 g/dL (6.4-8.2) Albumin 1.2 g/dL (3.4-5.0) Glucose (Fingerstick) 210 mg/dL (70-99) Assessment and Plan Assessmemt and Plan Problems Medical Problems: (1) Acute kidney injury Status: Acute (2) Encephalopathy Status: Acute (3) Hypoglycemia Status: Acute (4) Hyponatremia Status: Acute (5) Seizure Status: Acute Comment Review of Relevant I have reviewed the following items clarisse (where applicable) has been applied. Labs Laboratory Tests Test 03/16/20 11:28 03/16/20 11:30 03/16/20 16:41 03/16/20 21:39 Sodium Level 129 mmol/L (136-145) Potassium Level 4.3 mmol/L (3.5-5.1) Chloride Level 94 mmol/L (98-107) Carbon Dioxide Level 26 mmol/L (21-32) Anion Gap 9 (6-14) Blood Urea Nitrogen 43 mg/dL (8-26) Creatinine 2.9 mg/dL (0.7-1.3) Estimated GFR (Cockcroft-Gault) 22.3 BUN/Creatinine Ratio 15 (6-20) Glucose Level 126 mg/dL (70-99) Calcium Level 7.8 mg/dL (8.5-10.1) Magnesium Level 1.9 mg/dL (1.8-2.4) Total Bilirubin 0.9 mg/dL (0.2-1.0) Aspartate Amino Transf (AST/SGOT) 64 U/L (15-37) Alanine Aminotransferase (ALT/SGPT) 61 U/L (16-63) Alkaline Phosphatase 226 U/L (46-116) Total Protein 5.8 g/dL (6.4-8.2) Albumin 1.6 g/dL (3.4-5.0) Albumin/Globulin Ratio 0.4 (1.0-1.7) White Blood Count 12.5 x10^3/uL (4.0-11.0) Red Blood Count 2.87 x10^6/uL (4.30-5.70) Hemoglobin 8.4 g/dL (13.0-17.5) Hematocrit 24.7 % (39.0-53.0) Mean Corpuscular Volume 86 fL (79-100) Mean Corpuscular Hemoglobin 29 pg (25-35) Mean Corpuscular Hemoglobin Concent 34 g/dL (31-37) Red Cell Distribution Width 17.2 % (11.5-14.5) Platelet Count 231 x10^3/uL (140-400) Neutrophils (%) (Auto) 94 % (31-73) Lymphocytes (%) (Auto) 2 % (24-48) Monocytes (%) (Auto) 2 % (0-9) Eosinophils (%) (Auto) 1 % (0-3) Basophils (%) (Auto) 0 % (0-3) Neutrophils # (Auto) 11.8 x10^3/uL (1.8-7.7) Lymphocytes # (Auto) 0.2 x10^3/uL (1.0-4.8) Monocytes # (Auto) 0.3 x10^3/uL (0.0-1.1) Eosinophils # (Auto) 0.2 x10^3/uL (0.0-0.7) Basophils # (Auto) 0.0 x10^3/uL (0.0-0.2) Iron Level 15 ug/dL (65-175) Total Iron Binding Capacity 111 ug/dL (250-450) Iron Saturation 14 % (15-34) Glucose (Fingerstick) 152 mg/dL (70-99) 184 mg/dL (70-99) Test 03/17/20 01:20 03/17/20 04:50 03/17/20 07:48 03/17/20 11:00 Troponin I Quantitative 0.085 ng/mL (0.000-0.055) 0.053 ng/mL (0.000-0.055) Sodium Level 134 mmol/L (136-145) 134 mmol/L (136-145) Potassium Level 3.9 mmol/L (3.5-5.1) 3.9 mmol/L (3.5-5.1) Chloride Level 101 mmol/L (98-107) 100 mmol/L (98-107) Carbon Dioxide Level 25 mmol/L (21-32) 24 mmol/L (21-32) Anion Gap 8 (6-14) 10 (6-14) Blood Urea Nitrogen 33 mg/dL (8-26) 30 mg/dL (8-26) Creatinine 2.1 mg/dL (0.7-1.3) 1.9 mg/dL (0.7-1.3) Estimated GFR (Cockcroft-Gault) 32.4 36.3 Glucose Level 129 mg/dL (70-99) 88 mg/dL (70-99) Calcium Level 7.2 mg/dL (8.5-10.1) 7.4 mg/dL (8.5-10.1) Phosphorus Level 3.5 mg/dL (2.6-4.7) Magnesium Level 2.0 mg/dL (1.8-2.4) Total Bilirubin 0.6 mg/dL (0.2-1.0) 0.6 mg/dL (0.2-1.0) Direct Bilirubin 0.4 mg/dL (0.0-0.2) Aspartate Amino Transf (AST/SGOT) 56 U/L (15-37) 63 U/L (15-37) Alanine Aminotransferase (ALT/SGPT) 47 U/L (16-63) 52 U/L (16-63) Alkaline Phosphatase 177 U/L (46-116) 216 U/L (46-116) Total Protein 4.9 g/dL (6.4-8.2) 5.5 g/dL (6.4-8.2) Albumin 1.2 g/dL (3.4-5.0) 1.4 g/dL (3.4-5.0) Glucose (Fingerstick) 117 mg/dL (70-99) White Blood Count 8.1 x10^3/uL (4.0-11.0) Red Blood Count 2.74 x10^6/uL (4.30-5.70) Hemoglobin 8.1 g/dL (13.0-17.5) Hematocrit 23.7 % (39.0-53.0) Mean Corpuscular Volume 87 fL (79-100) Mean Corpuscular Hemoglobin 30 pg (25-35) Mean Corpuscular Hemoglobin Concent 34 g/dL (31-37) Red Cell Distribution Width 17.5 % (11.5-14.5) Platelet Count 177 x10^3/uL (140-400) Neutrophils (%) (Auto) 81 % (31-73) Lymphocytes (%) (Auto) 11 % (24-48) Monocytes (%) (Auto) 6 % (0-9) Eosinophils (%) (Auto) 1 % (0-3) Basophils (%) (Auto) 1 % (0-3) Neutrophils # (Auto) 6.6 x10^3/uL (1.8-7.7) Lymphocytes # (Auto) 0.9 x10^3/uL (1.0-4.8) Monocytes # (Auto) 0.5 x10^3/uL (0.0-1.1) Eosinophils # (Auto) 0.1 x10^3/uL (0.0-0.7) Basophils # (Auto) 0.1 x10^3/uL (0.0-0.2) BUN/Creatinine Ratio 16 (6-20) Albumin/Globulin Ratio 0.3 (1.0-1.7) Test 03/17/20 11:53 03/17/20 17:06 03/17/20 19:52 03/18/20 05:10 Glucose (Fingerstick) 88 mg/dL (70-99) 102 mg/dL (70-99) 97 mg/dL (70-99) White Blood Count 8.4 x10^3/uL (4.0-11.0) Red Blood Count 2.32 x10^6/uL (4.30-5.70) Hemoglobin 6.8 g/dL (13.0-17.5) Hematocrit 19.9 % (39.0-53.0) Mean Corpuscular Volume 86 fL (79-100) Mean Corpuscular Hemoglobin 29 pg (25-35) Mean Corpuscular Hemoglobin Concent 34 g/dL (31-37) Red Cell Distribution Width 17.7 % (11.5-14.5) Platelet Count 108 x10^3/uL (140-400) Sodium Level 131 mmol/L (136-145) Potassium Level 4.1 mmol/L (3.5-5.1) Chloride Level 99 mmol/L (98-107) Carbon Dioxide Level 22 mmol/L (21-32) Anion Gap 10 (6-14) Blood Urea Nitrogen 29 mg/dL (8-26) Creatinine 2.0 mg/dL (0.7-1.3) Estimated GFR (Cockcroft-Gault) 34.3 Glucose Level 193 mg/dL (70-99) Calcium Level 6.4 mg/dL (8.5-10.1) Total Bilirubin 0.6 mg/dL (0.2-1.0) Direct Bilirubin 0.4 mg/dL (0.0-0.2) Aspartate Amino Transf (AST/SGOT) 44 U/L (15-37) Alanine Aminotransferase (ALT/SGPT) 41 U/L (16-63) Alkaline Phosphatase 182 U/L (46-116) Total Protein 4.6 g/dL (6.4-8.2) Albumin 1.2 g/dL (3.4-5.0) Test 03/18/20 08:00 Glucose (Fingerstick) 210 mg/dL (70-99) Laboratory Tests Test 03/17/20 11:00 03/17/20 11:53 03/17/20 17:06 03/17/20 19:52 White Blood Count 8.1 x10^3/uL (4.0-11.0) Red Blood Count 2.74 x10^6/uL (4.30-5.70) Hemoglobin 8.1 g/dL (13.0-17.5) Hematocrit 23.7 % (39.0-53.0) Mean Corpuscular Volume 87 fL (79-100) Mean Corpuscular Hemoglobin 30 pg (25-35) Mean Corpuscular Hemoglobin Concent 34 g/dL (31-37) Red Cell Distribution Width 17.5 % (11.5-14.5) Platelet Count 177 x10^3/uL (140-400) Neutrophils (%) (Auto) 81 % (31-73) Lymphocytes (%) (Auto) 11 % (24-48) Monocytes (%) (Auto) 6 % (0-9) Eosinophils (%) (Auto) 1 % (0-3) Basophils (%) (Auto) 1 % (0-3) Neutrophils # (Auto) 6.6 x10^3/uL (1.8-7.7) Lymphocytes # (Auto) 0.9 x10^3/uL (1.0-4.8) Monocytes # (Auto) 0.5 x10^3/uL (0.0-1.1) Eosinophils # (Auto) 0.1 x10^3/uL (0.0-0.7) Basophils # (Auto) 0.1 x10^3/uL (0.0-0.2) Sodium Level 134 mmol/L (136-145) Potassium Level 3.9 mmol/L (3.5-5.1) Chloride Level 100 mmol/L (98-107) Carbon Dioxide Level 24 mmol/L (21-32) Anion Gap 10 (6-14) Blood Urea Nitrogen 30 mg/dL (8-26) Creatinine 1.9 mg/dL (0.7-1.3) Estimated GFR (Cockcroft-Gault) 36.3 BUN/Creatinine Ratio 16 (6-20) Glucose Level 88 mg/dL (70-99) Calcium Level 7.4 mg/dL (8.5-10.1) Total Bilirubin 0.6 mg/dL (0.2-1.0) Aspartate Amino Transf (AST/SGOT) 63 U/L (15-37) Alanine Aminotransferase (ALT/SGPT) 52 U/L (16-63) Alkaline Phosphatase 216 U/L (46-116) Total Protein 5.5 g/dL (6.4-8.2) Albumin 1.4 g/dL (3.4-5.0) Albumin/Globulin Ratio 0.3 (1.0-1.7) Glucose (Fingerstick) 88 mg/dL (70-99) 102 mg/dL (70-99) 97 mg/dL (70-99) Test 03/18/20 05:10 03/18/20 08:00 White Blood Count 8.4 x10^3/uL (4.0-11.0) Red Blood Count 2.32 x10^6/uL (4.30-5.70) Hemoglobin 6.8 g/dL (13.0-17.5) Hematocrit 19.9 % (39.0-53.0) Mean Corpuscular Volume 86 fL (79-100) Mean Corpuscular Hemoglobin 29 pg (25-35) Mean Corpuscular Hemoglobin Concent 34 g/dL (31-37) Red Cell Distribution Width 17.7 % (11.5-14.5) Platelet Count 108 x10^3/uL (140-400) Sodium Level 131 mmol/L (136-145) Potassium Level 4.1 mmol/L (3.5-5.1) Chloride Level 99 mmol/L (98-107) Carbon Dioxide Level 22 mmol/L (21-32) Anion Gap 10 (6-14) Blood Urea Nitrogen 29 mg/dL (8-26) Creatinine 2.0 mg/dL (0.7-1.3) Estimated GFR (Cockcroft-Gault) 34.3 Glucose Level 193 mg/dL (70-99) Calcium Level 6.4 mg/dL (8.5-10.1) Total Bilirubin 0.6 mg/dL (0.2-1.0) Direct Bilirubin 0.4 mg/dL (0.0-0.2) Aspartate Amino Transf (AST/SGOT) 44 U/L (15-37) Alanine Aminotransferase (ALT/SGPT) 41 U/L (16-63) Alkaline Phosphatase 182 U/L (46-116) Total Protein 4.6 g/dL (6.4-8.2) Albumin 1.2 g/dL (3.4-5.0) Glucose (Fingerstick) 210 mg/dL (70-99) Microbiology 03/16/20 Blood Culture - Preliminary, Resulted NO GROWTH AFTER 2 DAYS Medications Current Medications Haloperidol Lactate (Haldol Inj) 5 mg 1X ONCE IM Last administered on 03/15/20at 19:30; Start 03/15/20 at 20:00; Stop 03/15/20 at 20:01; Status DC Diphenhydramine HCl (Benadryl) 50 mg 1X ONCE IM Last administered on 03/15/20at 19:30; Start 03/15/20 at 20:00; Stop 03/15/20 at 20:01; Status DC Lorazepam (Ativan Inj) 1 mg 1X ONCE IVP Last administered on 03/15/20at 20:55; Start 03/15/20 at 20:00; Stop 03/15/20 at 20:01; Status DC Dextrose (Dextrose 50%-Water Syringe) 25 gm 1X ONCE IV ; Start 03/15/20 at 21:30; Stop 03/15/20 at 21:23; Status DC Dextrose 1,000 ml @ 75 mls/hr 1X ONCE IV Last administered on 03/15/20at 21:03; Start 03/15/20 at 21:30; Stop 03/15/20 at 21:23; Status DC Sodium Chloride 154 meq/Dextrose 1,038.5 ml @ 75 mls/hr [id number] IV Last administered on 03/16/20at 12:30; Start 03/15/20 at 22:00; Stop 03/16/20 at 21:59; Status DC Ceftriaxone Sodium (Rocephin) 2 gm 1X ONCE IVP Last administered on 03/15/20at 22:36; Start 03/15/20 at 22:00; Stop 03/15/20 at 22:01; Status DC Ondansetron HCl (Zofran) 4 mg PRN Q8HRS PRN IV NAUSEA/VOMITING 1ST CHOICE; Start 03/15/20 at 21:30; Stop 03/16/20 at 20:48; Status DC Lorazepam (Ativan Inj) 2 mg 1X ONCE IVP Last administered on 03/15/20at 23:37; Start 03/15/20 at 23:45; Stop 03/15/20 at 23:46; Status DC Lorazepam (Ativan Inj) 1 mg PRN Q4HRS PRN IVP ANXIETY / AGITATION Last administered on 03/18/20at 03:46; Start 03/16/20 at 03:15 Amlodipine Besylate (Norvasc) 10 mg DAILY PO Last administered on 03/16/20at 09:39; Start 03/16/20 at 09:00 Atorvastatin Calcium (Lipitor) 20 mg QHS PO Last administered on 03/17/20at 21:12; Start 03/16/20 at 21:00 Diclofenac Sodium (Voltaren) 1 rama PRN QID PRN TP PAIN; Start 03/16/20 at 08:00 Lidocaine (Lidoderm) 1 patch PRN DAILY PRN TP TOPICAL PAIN; Start 03/16/20 at 08:00; Stop 03/17/20 at 07:16; Status DC Montelukast Sodium (Singulair) 10 mg DAILY PO Last administered on 03/17/20at 07:51; Start 03/16/20 at 09:00 Polyethylene Glycol (miraLAX PACKET) 17 gm PRN DAILY PRN PO CONSTIPATION; Start 03/16/20 at 08:00 Non-Formulary Medication (Albuterol Sulfate (Ventolin Hfa Inhaler)) 2 puff PRN Q4-6HRS IH ; Start 03/16/20 at 08:00; Status UNV Duloxetine HCl (Cymbalta) 60 mg BID PO Last administered on 03/17/20at 21:12; Start 03/16/20 at 09:00 Insulin Glargine (Lantus Syringe) 10 unit QHS SQ Last administered on 03/17/20at 22:17; Start 03/16/20 at 21:00 Pantoprazole Sodium (Protonix) 40 mg DAILYAC PO Last administered on 03/18/20at 04:58; Start 03/16/20 at 08:30 Linagliptin (Tradjenta) 5 mg DAILY PO Last administered on 03/17/20at 07:50; Start 03/16/20 at 09:00 Insulin Human Lispro (HumaLOG) 0-7 UNITS TIDACHC SQ ; Start 03/16/20 at 11:30 Dextrose (Dextrose 50%-Water Syringe) 12.5 gm PRN Q15MIN PRN IV SEE COMMENTS; Start 03/16/20 at 08:00 Albuterol Sulfate (Ventolin Neb Soln) 2.5 mg PRN Q4HRS PRN NEB SHORTNESS OF BREATH; Start 03/16/20 at 08:30 Haloperidol Lactate (Haldol Inj) 5 mg PRN Q6HRS PRN IVP AGITATION Last administered on 03/16/20at 18:15; Start 03/16/20 at 10:45 Fentanyl Citrate (Fentanyl 2ml Vial) 25 mcg PRN Q3HRS PRN IVP MOD-SEVERE PAIN Last administered on 03/16/20at 12:33; Start 03/16/20 at 11:00; Stop 03/17/20 at 20:17; Status DC Diphenhydramine HCl (Benadryl) 25 mg PRN Q6HRS PRN IVP ITCHING Last administered on 03/16/20at 13:41; Start 03/16/20 at 13:45 Metoprolol Tartrate (Lopressor) 25 mg BID PO Last administered on 03/17/20at 18:14; Start 03/16/20 at 15:30 Ondansetron HCl (Zofran) 4 mg PRN Q4HRS PRN IV NAUSEA/VOMITING 1ST CHOICE; Start 03/16/20 at 21:00 Heparin Sodium (Porcine) (Heparin Sodium) 5,000 unit Q8HRS SQ Last administered on 03/18/20at 05:01; Start 03/16/20 at 22:00 Ceftriaxone Sodium (Rocephin) 1 gm Q24H IVP Last administered on 03/16/20at 21:35; Start 03/16/20 at 22:00; Stop 03/17/20 at 20:23; Status DC Acetaminophen (Tylenol Supp) 650 mg PRN Q6HRS PRN MT MILD PAIN / TEMP > 100.3'F Last administered on 03/17/20at 20:34; Start 03/16/20 at 23:00 Sodium Chloride 154 meq/Dextrose 1,038.5 ml @ 75 mls/hr [id number] IV Last administered on 03/17/20at 04:45; Start 03/17/20 at 04:45; Stop 03/17/20 at 13:10; Status DC Dextrose/Sodium Chloride 1,000 ml @ 150 mls/hr Q6H40M IV Last administered on 03/18/20at 02:00; Start 03/17/20 at 17:30 Atenolol (Tenormin) 25 mg DAILY PO ; Start 03/17/20 at 14:00; Stop 03/17/20 at 14:42; Status DC Lorazepam (Ativan) 1 mg PRN BID PRN PO ANXIETY / AGITATION Last administered on 03/17/20at 21:11; Start 03/17/20 at 14:00 Tizanidine HCl (Zanaflex) 4 mg PRN Q6HRS PRN PO MUSCLE PAIN; Start 03/17/20 at 14:00 Diclofenac Sodium (Voltaren) 75 mg BID PO ; Start 03/17/20 at 21:00; Stop 03/17/20 at 20:22; Status DC Non-Formulary Medication (Ondansetron Hcl ) 8 mg PRN BID PRN PO NAUSEA/VOMITING; Start 03/17/20 at 14:00 Oxycodone HCl (Roxicodone) 15 mg PRN Q6HRS PRN PO MODERATE TO SEVERE PAIN Last administered on 03/17/20at 16:33; Start 03/17/20 at 14:15 Metoprolol Tartrate (Lopressor Vial) 5 mg 1X ONCE IVP Last administered on 03/17/20at 19:51; Start 03/17/20 at 19:30; Stop 03/17/20 at 19:31; Status DC Metoprolol Tartrate (Lopressor) 25 mg 1X ONCE PO Last administered on 03/17/20at 21:12; Start 03/17/20 at 21:00; Stop 03/17/20 at 21:01; Status DC Fentanyl Citrate (Fentanyl 2ml Vial) 50 mcg PRN Q3HRS PRN IVP MOD-SEVERE PAIN Last administered on 03/18/20at 03:46; Start 03/17/20 at 20:30 Ketorolac Tromethamine (Toradol 15mg Vial) 15 mg 1X ONCE IVP Last administered on 03/17/20at 20:34; Start 03/17/20 at 20:15; Stop 03/17/20 at 20:22; Status DC Piperacillin Sod/ Tazobactam Sod (Zosyn Per Pharmacy) 1 each PRN DAILY PRN MC SEE COMMENTS; Start 03/17/20 at 20:30 Piperacillin Sod/ Tazobactam Sod 3.375 gm/Sodium Chloride 50 ml @ 100 mls/hr Q6H IV Last administered on 03/18/20at 02:01; Start 03/17/20 at 21:00 Active Scripts Active Miralax (Polyethylene Glycol 3350) 17 Gm Powd.pack 1 Pkt PO PRN DAILY PRN Reported Etodolac 400 Mg Tablet 1 Tab PO BID Ondansetron Hcl 8 Mg Tablet 8 Mg PO BID PRN Oxycodone Hcl Immed.release (Oxycodone Hcl) 15 Mg Tablet 15 Mg PO PRN Q6HRS PRN Montelukast Sodium Tablet (Montelukast Sodium) 10 Mg Tablet 10 Mg PO DAILY Rosemarieaglchristina Yepezpen U-100 (Insulin Glargine,Hum.rec.anlog) 100 Unit/1 Ml Insuln.pen 50 Unit SQ HS Prilosec Otc (Omeprazole Magnesium) 20 Mg Tablet. 1 Tab PO DAILY Novolog Flexpen (Insulin Aspart) 100 Unit/1 Ml Insuln.pen 1 Unit SQ 15-20 UNITS WITH MEALS TO MAX OF 80 UNITS DAILY Atorvastatin Calcium 20 Mg Tablet 1 Tab PO DAILY Januvia (Sitagliptin Phosphate) 50 Mg Tablet 1 Tab PO DAILY Tizanidine Hcl 4 Mg Tablet 1 Tab PO Q6HRS PRN can have 1-2 tabs Lidoderm (Lidocaine) 700 Mg Adh..patch 1 Patch TP DAILY PRN Ativan (Lorazepam) 1 Mg Tablet 1 Mg PO BID PRN Amlodipine Besylate 10 Mg Tablet 10 Mg PO DAILY Atenolol 25 Mg Tablet 1 Tab PO DAILY Voltaren (Diclofenac Sodium) 100 Gm Gel..gram. 1 Gm TP QID PRN Ventolin Hfa Inhaler (Albuterol Sulfate) 18 Gm Hfa.aer.ad 2 Puff IH PRN Q4-6HRS Cymbalta (Duloxetine Hcl) 60 Mg Capsule. 60 Mg PO BID Vitals/I & O Vital Sign - Last 24 Hours 03/17/20 03/17/20 03/17/20 03/17/20 09:00 09:00 12:00 14:09 Temp 97.9 97.9 Pulse 84 84 83 88 B/P (MAP) 92/60 92/60 90/59 (69) 94/58 Pulse Ox 97 O2 Delivery Room Air 03/17/20 03/17/20 03/17/20 03/17/20 16:00 16:33 18:14 18:30 Temp 98.9 98.9 Pulse 95 141 Resp 20 B/P (MAP) 115/66 (82) 160/94 Pulse Ox 96 O2 Delivery Room Air Room Air Room Air 03/17/20 03/17/20 03/17/20 03/17/20 19:51 20:00 20:00 21:12 Temp 104.8 104.8 Pulse 155 145 145 Resp 31 B/P (MAP) 80/145 155/80 (105) 155/80 Pulse Ox 95 O2 Delivery Room Air Room Air 03/17/20 03/17/20 03/17/20 03/17/20 21:15 23:17 23:47 23:59 Temp 103.1 99.5 103.1 99.5 Pulse 114 Resp 22 23 B/P (MAP) 92/41 (58) Pulse Ox 95 97 97 O2 Delivery Room Air Room Air Room Air 03/18/20 03/18/20 03/18/20 03/18/20 03:28 03:46 04:16 07:35 Temp 97.4 97.4 97.4 97.4 Pulse 79 69 Resp 18 20 B/P (MAP) 91/58 (69) 97/49 (65) Pulse Ox 94 94 94 96 O2 Delivery Room Air Room Air Room Air Room Air Intake and Output 03/17/20 03/17/20 03/18/20 15:00 23:00 07:00 Intake Total 1340 ml 1140 ml Output Total 395 ml 175 ml 800 ml Balance 945 ml 965 ml -800 ml Justicifation of Admission Dx: Justifications for Admission: Justification of Admission Dx: Yes GREGORIO IBARRA MD Mar 18, 2020 08:25
[2020-03-18] MEDS: LINAGLIPTIN 5 MG TABLET PO SCH (09:57)
[2020-03-18] MEDS: amLODIPine BESYLATE 10 MG TABLET PO SCH (09:57)
[2020-03-18] MEDS: DULoxetine HCL 30 MG CAPSULE.DR PO SCH ×2 (09:58→20:48)
[2020-03-18] MEDS: MONTELUKAST SODIUM 10 MG TABLET. PO SCH (09:58)
--- NOTE | 2020-03-18 11:30 | PDOC ---
Subjective: Subjective: Wants Hernandez out. Objective: Objective: Reviewed oncology note - liver biopsy recommended. Per [facility] records: EGD this month w/ mild esophagitis, prepyloric ulcers, retained food in stomach, stent at ampulla. EUS showed no abnormalities in pancreas, left lobe of liver, gastric wall at antrum, celiac axis, or ampulla. CT: normal size liver and focal ill-defined area of low attenuation and a couple similar small areas (along with other findings). Tmax 104.8. Significant tachycardia overnight. D/w nurse - had questions about anemia - no obvious bleeding. D/w Dr. Duval - liver biopsy/hemangioma ~10 years ago. Vital Signs: Vital Signs Date Time Temp Pulse Resp B/P (MAP) Pulse Ox O2 Delivery O2 Flow Rate FiO2 03/18/20 10:00 97.6 83 20 121/72 97.6 03/18/20 09:54 Room Air 03/18/20 07:35 96 Labs: Laboratory Tests Test 03/17/20 11:53 03/17/20 17:06 03/17/20 19:52 03/18/20 05:10 Glucose (Fingerstick) 88 mg/dL 102 mg/dL 97 mg/dL White Blood Count 8.4 x10^3/uL Red Blood Count 2.32 x10^6/uL Hemoglobin 6.8 g/dL Hematocrit 19.9 % Mean Corpuscular Volume 86 fL Mean Corpuscular Hemoglobin 29 pg Mean Corpuscular Hemoglobin Concent 34 g/dL Red Cell Distribution Width 17.7 % Platelet Count 108 x10^3/uL Sodium Level 131 mmol/L Potassium Level 4.1 mmol/L Chloride Level 99 mmol/L Carbon Dioxide Level 22 mmol/L Anion Gap 10 Blood Urea Nitrogen 29 mg/dL Creatinine 2.0 mg/dL Estimated GFR (Cockcroft-Gault) 34.3 Glucose Level 193 mg/dL Calcium Level 6.4 mg/dL Total Bilirubin 0.6 mg/dL Direct Bilirubin 0.4 mg/dL Aspartate Amino Transf (AST/SGOT) 44 U/L Alanine Aminotransferase (ALT/SGPT) 41 U/L Alkaline Phosphatase 182 U/L Total Protein 4.6 g/dL Albumin 1.2 g/dL Test 03/18/20 08:00 Glucose (Fingerstick) 210 mg/dL PE: GEN: NAD LUNGS: CTAB HEART: RRR ABD: non-tender NEURO/PSYCH: confused - focused on Hernandez A/P: GNR bacteremia, fever, encephalopathy Recent cholecystectomy, ?bile leak - s/p drain and stent placement @ [facility] Right hepatic mass ACD/NUHA - worse, no obvious bleeding, transfusion in process Elevated AST and Alk Phos - better GERD, PUD - on PPI H/o RCC -- Dr. Hameed will follow-up later. Justicifation of Admission Dx: Justifications for Admission: Justification of Admission Dx: Yes ROSAURA ORTEZ Mar 18, 2020 11:30
--- NOTE | 2020-03-18 11:38 | NUR ---
SW following. Discussed with RN, pt from home with spouse, room air, cardiac diet. Pt septic, getting blood today, IV rocephin. RN ordered PT/OT. Waiting on records from . Dr. Duval anticipates pt will be here through the weekend. SW will continue to follow.
--- NOTE | 2020-03-18 11:47 | PDOC ---
Renal-Progress Notes Subjective Notes Notes NO NEW COMPLAINTS History of Present Illness Hx of present illness STABLE Vitals Vitals Vital Signs Date Time Temp Pulse Resp B/P (MAP) Pulse Ox O2 Delivery O2 Flow Rate FiO2 03/18/20 11:00 97.4 88 18 125/75 97.4 03/18/20 09:54 Room Air 03/18/20 07:35 96 Weight Weight [ ] I.O. Intake and Output Intake and Output 03/18/20 07:00 Intake Total 2480 ml Output Total 1370 ml Balance 1110 ml Intake Oral 1080 ml IV Total 900 ml Other 500 ml Output Urine Total 1370 ml Labs Labs Laboratory Tests Test 03/17/20 11:53 03/17/20 17:06 03/17/20 19:52 03/18/20 05:10 Glucose (Fingerstick) 88 mg/dL (70-99) 102 mg/dL (70-99) 97 mg/dL (70-99) White Blood Count 8.4 x10^3/uL (4.0-11.0) Red Blood Count 2.32 x10^6/uL (4.30-5.70) Hemoglobin 6.8 g/dL (13.0-17.5) Hematocrit 19.9 % (39.0-53.0) Mean Corpuscular Volume 86 fL (79-100) Mean Corpuscular Hemoglobin 29 pg (25-35) Mean Corpuscular Hemoglobin Concent 34 g/dL (31-37) Red Cell Distribution Width 17.7 % (11.5-14.5) Platelet Count 108 x10^3/uL (140-400) Sodium Level 131 mmol/L (136-145) Potassium Level 4.1 mmol/L (3.5-5.1) Chloride Level 99 mmol/L (98-107) Carbon Dioxide Level 22 mmol/L (21-32) Anion Gap 10 (6-14) Blood Urea Nitrogen 29 mg/dL (8-26) Creatinine 2.0 mg/dL (0.7-1.3) Estimated GFR (Cockcroft-Gault) 34.3 Glucose Level 193 mg/dL (70-99) Calcium Level 6.4 mg/dL (8.5-10.1) Total Bilirubin 0.6 mg/dL (0.2-1.0) Direct Bilirubin 0.4 mg/dL (0.0-0.2) Aspartate Amino Transf (AST/SGOT) 44 U/L (15-37) Alanine Aminotransferase (ALT/SGPT) 41 U/L (16-63) Alkaline Phosphatase 182 U/L (46-116) Total Protein 4.6 g/dL (6.4-8.2) Albumin 1.2 g/dL (3.4-5.0) Test 03/18/20 08:00 03/18/20 11:37 Glucose (Fingerstick) 210 mg/dL (70-99) 132 mg/dL (70-99) Micro Micro Microbiology 03/16/20 Blood Culture - Preliminary, Resulted NO GROWTH AFTER 2 DAYS Review of Systems Constitutional: yes: other (CONFUSED) Physical Exam General Appearance: no apparent distress Skin: warm Respiratory: bilateral CTA Heart: S1S2, RRR Abdomen: soft, bowel sounds present Genitourinary: bladder flat Extremities: pulses present Neurology: alert, confused Musculoskeletal: Osteoarthritis, Other (cervical stenosis; chronic opioid use) Assessment Assessment IMP COLBY CR DOWN TO 2.0 CKD STAGE 3 WITH CR OF 1.6-2.0 AT BASELINE ANEMIA HYPONATREMIA-IMPROVED HYPOGLYCEMIA MET ENCEPHALOPATHY LEUCOCYTOSIS MALNUTRITION PLAN HYDRATE PRBC ENC PO SOON REPEAT LABS IN AM WILL FOLLOW NADIR REILLY MD Mar 18, 2020 11:47
[2020-03-18] MEDS: METOPROLOL TART IMMED RELEASE 25 MG TABLET. PO SCH ×3 (11:48→20:47)
[2020-03-18] MEDS: oxyCODONE IR 5 MG TABLET PO PRN (11:48)
[2020-03-18] MEDS: IPRATRPIUM/ALBUTEROL 0.5/2.5MG 3 ML NEBU. NEB SCH ×3 (12:07→20:00)
--- NOTE | 2020-03-18 12:28 | PDOC ---
Infectious Disease Note Vital Signs: Vital Signs Vital Signs Date Time Temp Pulse Resp B/P (MAP) Pulse Ox O2 Delivery O2 Flow Rate FiO2 03/18/20 12:13 93 Room Air 03/18/20 11:48 88 125/75 03/18/20 11:00 97.4 18 97.4 Medications: Inpatient Meds: Current Medications Medications (Trade) Dose Ordered Sig/Tory Start Time Stop Time Status Last Admin Dose Admin Acetaminophen (Tylenol Supp) 650 mg PRN Q6HRS PRN 03/16/20 23:00 03/17/20 20:34 650 MG Albuterol Sulfate (Ventolin Neb Soln) 2.5 mg PRN Q4HRS PRN 03/16/20 08:30 Albuterol/ Ipratropium (Duoneb) 3 ml RTQID 03/18/20 12:00 03/18/20 12:07 3 ML Amlodipine Besylate (Norvasc) 10 mg DAILY 03/16/20 09:00 03/18/20 09:57 10 MG Atenolol (Tenormin) 25 mg DAILY 03/17/20 14:00 03/17/20 14:42 DC Atorvastatin Calcium (Lipitor) 20 mg QHS 03/16/20 21:00 03/17/20 21:12 20 MG Budesonide (Pulmicort) 0.5 mg RTBID 03/18/20 20:00 Ceftriaxone Sodium (Rocephin) 1 gm Q24H 03/16/20 22:00 03/17/20 20:23 DC 03/16/20 21:35 1 GM Dextrose (Dextrose 50%-Water Syringe) 12.5 gm PRN Q15MIN PRN 03/16/20 08:00 Dextrose/Sodium Chloride 1,000 ml @ 150 mls/hr Q6H40M 03/17/20 17:30 03/18/20 02:00 150 MLS/HR Diclofenac Sodium (Voltaren) 75 mg BID 03/17/20 21:00 03/17/20 20:22 DC Diphenhydramine HCl (Benadryl) 25 mg PRN Q6HRS PRN 03/16/20 13:45 03/16/20 13:41 25 MG Duloxetine HCl (Cymbalta) 60 mg BID 03/16/20 09:00 03/18/20 09:58 60 MG Fentanyl Citrate (Fentanyl 2ml Vial) 50 mcg PRN Q3HRS PRN 03/17/20 20:30 03/18/20 09:54 50 MCG Haloperidol Lactate (Haldol Inj) 5 mg PRN Q6HRS PRN 03/16/20 10:45 03/16/20 18:15 5 MG Heparin Sodium (Porcine) (Heparin Sodium) 5,000 unit Q8HRS 03/16/20 22:00 03/18/20 05:01 5,000 UNIT Insulin Glargine (Lantus Syringe) 10 unit QHS 03/16/20 21:00 03/17/20 22:17 10 UNIT Insulin Human Lispro (HumaLOG) 0-7 UNITS TIDACHC 03/16/20 11:30 Ketorolac Tromethamine (Toradol 15mg Vial) 15 mg 1X ONCE 03/17/20 20:15 03/17/20 20:22 DC 03/17/20 20:34 15 MG Lidocaine (Lidoderm) 1 patch PRN DAILY PRN 03/16/20 08:00 03/17/20 07:16 DC Linagliptin (Tradjenta) 5 mg DAILY 03/16/20 09:00 03/18/20 09:57 5 MG Lorazepam (Ativan Inj) 1 mg PRN Q4HRS PRN 03/16/20 03:15 03/18/20 12:08 1 MG Lorazepam (Ativan) 1 mg PRN BID PRN 03/17/20 14:00 03/17/20 21:11 1 MG Meropenem 500 mg/ Sodium Chloride 50 ml @ 100 mls/hr Q6HRS 03/18/20 18:00 UNV Methylprednisolone Sodium Succinate (SOLU-Medrol 125MG VIAL) 125 mg 1X ONCE 03/18/20 13:00 03/18/20 13:01 Metoprolol Tartrate (Lopressor Vial) 5 mg 1X ONCE 03/17/20 19:30 03/17/20 19:31 DC 03/17/20 19:51 5 MG Metoprolol Tartrate (Lopressor) 25 mg 1X ONCE 03/17/20 21:00 03/17/20 21:01 DC 03/17/20 21:12 25 MG Montelukast Sodium (Singulair) 10 mg DAILY 03/16/20 09:00 03/18/20 09:58 10 MG Non-Formulary Medication (Albuterol Sulfate (Ventolin Hfa Inhaler)) 2 puff PRN Q4-6HRS 03/16/20 08:00 UNV Non-Formulary Medication (Ondansetron Hcl ) 8 mg PRN BID PRN 03/17/20 14:00 Ondansetron HCl (Zofran) 4 mg PRN Q4HRS PRN 03/16/20 21:00 Oxycodone HCl (Roxicodone) 15 mg PRN Q6HRS PRN 03/17/20 14:15 03/18/20 11:48 15 MG Pantoprazole Sodium (Protonix) 40 mg DAILYAC 03/16/20 08:30 03/18/20 04:58 40 MG Piperacillin Sod/ Tazobactam Sod (Zosyn Per Pharmacy) 1 each PRN DAILY PRN 03/17/20 20:30 Piperacillin Sod/ Tazobactam Sod 3.375 gm/Sodium Chloride 50 ml @ 100 mls/hr Q6H 03/17/20 21:00 03/18/20 12:23 DC 03/18/20 08:37 100 MLS/HR Polyethylene Glycol (miraLAX PACKET) 17 gm PRN DAILY PRN 03/16/20 08:00 Sodium Chloride 154 meq/Dextrose 1,038.5 ml @ 75 mls/hr [id number] 03/17/20 04:45 03/17/20 13:10 DC 03/17/20 04:45 75 MLS/HR Tizanidine HCl (Zanaflex) 4 mg PRN Q6HRS PRN 03/17/20 14:00 Labs: Lab Laboratory Tests Test 03/17/20 17:06 03/17/20 19:52 03/18/20 05:10 03/18/20 08:00 Glucose (Fingerstick) 102 mg/dL (70-99) 97 mg/dL (70-99) 210 mg/dL (70-99) White Blood Count 8.4 x10^3/uL (4.0-11.0) Red Blood Count 2.32 x10^6/uL (4.30-5.70) Hemoglobin 6.8 g/dL (13.0-17.5) Hematocrit 19.9 % (39.0-53.0) Mean Corpuscular Volume 86 fL (79-100) Mean Corpuscular Hemoglobin 29 pg (25-35) Mean Corpuscular Hemoglobin Concent 34 g/dL (31-37) Red Cell Distribution Width 17.7 % (11.5-14.5) Platelet Count 108 x10^3/uL (140-400) Sodium Level 131 mmol/L (136-145) Potassium Level 4.1 mmol/L (3.5-5.1) Chloride Level 99 mmol/L (98-107) Carbon Dioxide Level 22 mmol/L (21-32) Anion Gap 10 (6-14) Blood Urea Nitrogen 29 mg/dL (8-26) Creatinine 2.0 mg/dL (0.7-1.3) Estimated GFR (Cockcroft-Gault) 34.3 Glucose Level 193 mg/dL (70-99) Calcium Level 6.4 mg/dL (8.5-10.1) Total Bilirubin 0.6 mg/dL (0.2-1.0) Direct Bilirubin 0.4 mg/dL (0.0-0.2) Aspartate Amino Transf (AST/SGOT) 44 U/L (15-37) Alanine Aminotransferase (ALT/SGPT) 41 U/L (16-63) Alkaline Phosphatase 182 U/L (46-116) Total Protein 4.6 g/dL (6.4-8.2) Albumin 1.2 g/dL (3.4-5.0) Test 03/18/20 11:37 Glucose (Fingerstick) 132 mg/dL (70-99) Objective: Assessment: Patient seen and examined Impression Gram-negative sepsis Liver mass Altered mental status Plan: Plan of Care DC Zosyn, MERREM, may need renal adjustment Follow-up cultures and lab Repeat blood cultures negative so far Thank you NELIA JAMES MD Mar 18, 2020 12:28
--- NOTE | 2020-03-18 12:50 | PDOC ---
JOSE JUAN RAMÍREZ WELL DIGGER 03/18/20 1249: CARDIO Progress Notes Date and Time Date of Service 03/18/2020 Time of Evaluation 1350 Subjective Subjective: Other (confuse) Vitals Vitals Vital Signs Date Time Temp Pulse Resp B/P (MAP) Pulse Ox O2 Delivery O2 Flow Rate FiO2 03/18/20 12:13 93 Room Air 03/18/20 12:00 97.7 72 30 147/79 97.7 Weight Weight [ ] Input and Output Intake and Output Intake and Output 03/18/20 07:00 Intake Total 2480 ml Output Total 1370 ml Balance 1110 ml Intake Oral 1080 ml IV Total 900 ml Other 500 ml Output Urine Total 1370 ml Laboratory Labs Laboratory Tests Test 03/17/20 17:06 03/17/20 19:52 03/18/20 05:10 03/18/20 08:00 Glucose (Fingerstick) 102 mg/dL (70-99) 97 mg/dL (70-99) 210 mg/dL (70-99) White Blood Count 8.4 x10^3/uL (4.0-11.0) Red Blood Count 2.32 x10^6/uL (4.30-5.70) Hemoglobin 6.8 g/dL (13.0-17.5) Hematocrit 19.9 % (39.0-53.0) Mean Corpuscular Volume 86 fL (79-100) Mean Corpuscular Hemoglobin 29 pg (25-35) Mean Corpuscular Hemoglobin Concent 34 g/dL (31-37) Red Cell Distribution Width 17.7 % (11.5-14.5) Platelet Count 108 x10^3/uL (140-400) Sodium Level 131 mmol/L (136-145) Potassium Level 4.1 mmol/L (3.5-5.1) Chloride Level 99 mmol/L (98-107) Carbon Dioxide Level 22 mmol/L (21-32) Anion Gap 10 (6-14) Blood Urea Nitrogen 29 mg/dL (8-26) Creatinine 2.0 mg/dL (0.7-1.3) Estimated GFR (Cockcroft-Gault) 34.3 Glucose Level 193 mg/dL (70-99) Calcium Level 6.4 mg/dL (8.5-10.1) Total Bilirubin 0.6 mg/dL (0.2-1.0) Direct Bilirubin 0.4 mg/dL (0.0-0.2) Aspartate Amino Transf (AST/SGOT) 44 U/L (15-37) Alanine Aminotransferase (ALT/SGPT) 41 U/L (16-63) Alkaline Phosphatase 182 U/L (46-116) Total Protein 4.6 g/dL (6.4-8.2) Albumin 1.2 g/dL (3.4-5.0) Test 03/18/20 11:37 Glucose (Fingerstick) 132 mg/dL (70-99) Microbiology Micro Microbiology 03/16/20 Blood Culture - Preliminary, Resulted NO GROWTH AFTER 2 DAYS Review of Systems Constitutional: yes: other (CONFUSED) Physical Exam HEENT: Neck Supple W Full Motion Chest: Symmetric LUNGS: Other (diminished; tachypnea) Heart: RRR (sinus tachycardia) Abdomen: Other (soft) Extremities: No Edema Neurology: alert, confused Assessment Assessment 1. Acute diastolic CHF/pleural effusion: multifactorial induced by anemia, hypoalbuminemia and renal failure. EF and WM nml. 2. Metabolic encephalopathy; still has some disorientation 3. Sepsis/fever 4. Severe hypoalbuminemia 5. Mild transaminitis with hepatic mass: GI following 6. S/P lap jonelle with bile leak: S/P ERCP with biliary stent placement at [facility] 7. COLBY on CKD with hyponatremia: nephrology following 8. Normocytic anemia with GI bleed (melena/hematochezia): Hgb 6.8 and just received 1U transfusion 9. Recently noted PUD: prepyloric ulcers via EGD 03/10/2020 10. Hx of left nephrectomy r/t renal CA 11. HTN: controlled 12. DM2 with hypoglycemia 13. HLP 13. Mild troponin elevation: 0.085, no EKG chnages no cardiac symptoms. Type 2 demand mediated with multiple culprits above. 14. Reactive sinus tachycardia Recommendations 1. EKG, ABG, INR, hemogram and BMP. Lactic acid. Presently refusing bipap 2. Lasix x1. Unable to take PO currently due to respiratory issues. Restart metoprolol when able to take PO. Agree with IV lopressor if BP holds 3. Transfer to ICU Justicifation of Admission Dx: Justifications for Admission: Justification of Admission Dx: Yes VIRAL REY MD 03/18/20 1515: CARDIO Progress Notes Assessment Assessment Patient seen and examined. Agree with SERVICE STATION CONSOLE OPERATOR's assessment and plan. Agree with Lasix for acute on chronic diastolic heart failure Slight troponin elevation probably demand ischemia. 2D echo showed LVEF 50 to 55%. Continue management of metabolic encephalopathy per primary team Continue management of sepsis per ID team. JOSE JUAN RAMÍREZ APRN Mar 18, 2020 12:49 VIRAL REY MD Mar 18, 2020 15:15
--- NOTE | 2020-03-18 12:53 | CONS ---
DATE OF CONSULTATION: 03/18/2020 REFERRING PHYSICIAN: Dr. Duval. REASON FOR CONSULTATION: Gram-negative bacteremia. HISTORY OF PRESENT ILLNESS: A 59-year-old male who was brought to the ER on 03/15/2020 with altered mental status. The patient was found to have hypoglycemia and was incontinent of urine and was combative. Upon arrival to the ER, he was given glucagon and blood sugar improved from 53 to 83. His white count was elevated at 17.2. He was febrile with bandemia. Hemoglobin of 8.2, lactate of 3.8, creatinine of 3.4. LFT elevation. BNP of 26,000. Ammonia less than 10. Abnormal liver function tests. Albumin of 1.7. UA showed large bilirubin. UDS negative. Chest x-ray showed mild congestive heart failure. CT head showed no acute intracranial process. The patient was started on D10 drip. He had hypoglycemia. The patient was admitted to ICU. He was started on Rocephin. Blood cultures returned positive for gram-negative eldon, 1/2 bottles present on admission from 03/15/2020. The patient underwent CT abdomen and pelvis, which showed a 10 x 8 cm hepatic mass consistent with metastatic disease, metallic common bile duct stent in place. A pancreatic head mass is not well- defined by this technique. Small pleural effusions, small inguinal hernia, GI and Oncology is following the patient. Last night, his fever went up to 104. Rocephin was changed to Zosyn. This morning, his hemoglobin is 6.8, hematocrit of 19.9, platelets of 108. The patient is receiving blood transfusion at this time. He is more alert this morning per discussion with nursing staff. He tells me today that he is not feeling well, has had nausea and vomiting for a couple of weeks with poor po intake.. He has history of renal cell carcinoma for which he underwent nephrectomy in the past. He has also been evaluated at couple of weeks ago and had received percutaneous biliary drain placement. The patient is unable to give complete details. PAST MEDICAL HISTORY: Renal cell carcinoma, liver mass, hypertension, hyperlipidemia, COPD, carpal tunnel syndrome, GERD, history of typhlitis, history of colonic perforation, colitis, peptic ulcer disease, liver hemangioma, anxiety, osteoarthritis, chronic renal insufficiency, diabetes, history of foot ulcer. PAST SURGICAL HISTORY: Hernia repair, elbow surgery, left Achilles repair, left nephrectomy, septoplasty, back surgery. FAMILY HISTORY: Coronary artery disease. FAMILY HISTORY: As per HPI. SOCIAL HISTORY: No smoking, ETOH, or illicit drug use. CURRENT MEDICATIONS: Zosyn. Had received 1 dose of ceftriaxone, albuterol, fentanyl, oxycodone, lorazepam, acetaminophen, heparin, insulin, Lipitor, metoprolol, diphenhydramine, lispro, haloperidol, linagliptin, duloxetine, montelukast, amlodipine, albuterol, pantoprazole, diclofenac, lorazepam. ALLERGIES: CLINDAMYCIN CAUSING GI UPSET. LEVAQUIN CAUSING TENDON PROBLEMS, MORPHINE, PRAMIPEXOLE, PREDNISONE. PHYSICAL EXAMINATION: VITAL SIGNS: Temperature 97.4, T-max 103.1, pulse 88, respiratory rate 18, blood pressure 125/75 and oxygen saturation 93% on room air. GENERAL: Alert, awake, lethargic male, somewhat confused. HEENT: Normocephalic, atraumatic, anicteric. Oral mucosa dry. No thrush. NECK: Supple. LUNGS: Decreased breath sounds at bases. No wheezing. No accessory muscle use. HEART: S1, S2 regular. No murmurs. ABDOMEN: Mildly distended. Bowel sounds present, nontender, no rebound, no guarding. EXTREMITIES: No edema, no cyanosis. NEUROLOGIC: Alert, awake, somewhat confused. PSYCHIATRIC: Cooperative. LABORATORY DATA: WBC 8.4, was 17.2, hemoglobin 6.8, was 8.4, hematocrit 19.9, platelets 108. Sodium 131, potassium 4.1, chloride 99, bicarbonate 22, BUN 29, creatinine 2.0, glucose 193, bilirubin 0.6, direct 0.4, AST 44, ALT 41, alkaline phosphatase 182, total protein 4.6. Last lactate 1.6. BNP was 12425. Troponin normal. Albumin was 1.7. UA showed large bilirubin, occasional wbc. MICROBIOLOGY: Blood cultures 03/15/2020, 1/ 2 sets gram-negative eldon E. coli. Further ID and JUWAN pending at this time. Blood culture from 03/16/2020 pending at this time. IMAGING: CT head as above. Chest x-ray as above. Ultrasound of the abdomen as above. Abdominal and pelvic CT as above. IMPRESSION: 1. Severe Sepsis present on admission from gram-negative bacteremia. 2. Gram-negative bacteremia, Escherichia coli. 3. Leukocytosis and lactic acidosis. 4. Anemia, status post PRBC. 5. Hyponatremia. 6. Encephalopathy, likely metabolic 7. History of renal cancer.S/P Nephrectomy 8. Abnormal LFTs ,Liver mass 9. History of ALLERGIES TO CLINDAMYCIN AND LEVAQUIN. 10. Recent placement of metallic stent RECOMMENDATIONS: 1. Discontinue Zosyn. Start meropenem.Monitor pt closely. 2. The patient is awaiting IR biopsy of liver lesion. 3. Follow up repeat blood cultures. 4. Continue monitoring labs. 5. Maintain aspiration precaution. 6. GI and oncology following pt. Thank you for this consult. NELIA JAMES MD DR: LUDMILA/ana JOB#: [id number] / [id number] AVELINA
[2020-03-18] MEDS ORDERED: methylPREDNISolone SOD SUCC PF 125 MG/2 ML VIAL. IV ONE (13:00)
[2020-03-18] MEDS ORDERED: METOPROLOL TARTRATE 5 MG/5 ML VIAL. IVP ONE (13:15)
--- NOTE | 2020-03-18 13:17 | RAD ---
EXAM: CHEST ONE VIEW. HISTORY: Wheezing, shortness of breath. COMPARISON: 03/15/2020. FINDINGS: A frontal view of the chest is obtained. There are no confluent infiltrates. The inspiration is small with bibasilar atelectasis. There is no pneumothorax or pleural effusion. The heart is not enlarged. There is a calcified granuloma in the left upper lobe. There are changes of internal fixation of a right proximal humeral fracture. IMPRESSION: 1. Small inspiration with basilar atelectasis. Correlate to exclude mild volume overload. Electronically signed by: Aimee Wilson MD (03/18/2020 1:14 PM) [id number]
[2020-03-18] MEDS: MEROPENEM 500 MG in IV NORMAL SALINE 50ML 50 ML IV SCH ×2 (13:43→17:36)
[2020-03-18 14:30] LABS: HEMATOCRIT 28.4 % (39.0-53.0); HEMOGLOBIN 9.5 g/dL (13.0-17.5); RED BLOOD COUNT 3.29 x10^6/uL (4.30-5.70); RED CELL DISTRIBUTION WIDTH 17.3 % (11.5-14.5); WHITE BLOOD COUNT 9.6 x10^3/uL (4.0-11.0)
[2020-03-18] MEDS ORDERED: FUROSEMIDE 20 MG/2 ML VIAL. IVP ONE (14:30)
[2020-03-18 14:40] LABS: PROTHROMBIN TIME PATIENT 18.2 SEC (11.7-14.0)
--- NOTE | 2020-03-18 14:43 | EKG ---
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
--- NOTE | 2020-03-18 15:00 | NUR ---
At the end of the blood transfusion patient became tachypneic, vital signs within normal limits. Dr. Duval on unit and was made aware. Dr. Duval assessed patient, ordered steroids, Ativan, breathing treatment and consult Dr. Al. Medications administered. Dr. Al on unit and assessed patient. Dr. Al ordered chest xray, BIpap and IV lasix. Patient confused at time and was taking off Bipap and wouldn't keep it on. RN noticed patient was incontinent to brownish, bloody stool. JOSETTE Melchor on unit and assessed patient. Patient tachycardic around 140's. Patient unable to take PO, IV metoprolol administered. Patients blood pressure within normal limits. Patients O2 sat was 88, placed nasal cannula on 5L, patient would not leave pulse ox on to read oxygen level. JOSETTE Melchor saw bowel movement and spoke to JOSETTE Abebe who came in to assess patient. Jill ordered to transfer patient to ICU. Labs drawn before patient was transferred. Report was called to CYNDIE Raya in ICU. Patient was transferred to room 108 via bed accompanied by this RN and Jerome MORELOS and TAMY Mathis. Dr. Duval called Tomer to make her aware of patients condition and transfer. Patient did not have any belongings at bedside.
[2020-03-18 15:08] LABS: CALCIUM 7.1 mg/dL (8.5-10.1); CREATININE 2.1 mg/dL (0.7-1.3); GFR 32.4; POTASSIUM 4.3 mmol/L (3.5-5.1)
--- NOTE | 2020-03-18 15:26 | NUR ---
rEC'D FROM 5TH FLOOR. aWAKE BUT CONFUSED. rn TTRIED TO PLACE bIPAP BUT PT KEPT PUSHING IT OFF. nc APPLIED abg ORDERED. aDD'L iv PLACED. vss.. Mushy dk red stool sm amt. No family here. Floor nurse said she would call .
[2020-03-18 15:37] LABS: BASE EXCESS ABG -10 mmol/L (-3-3); HCO3 ABG 12 mmol/L (21-28); PO2 ABG 91 mmHg (65-108); SAT O2 ABG 96 % (92-99)
[2020-03-18 15:40] LABS: PCO2 ABG 17 mmHg (35-46)
[2020-03-18 15:41] LABS: FIO2 ABG 5L NC
[2020-03-18] MEDS ORDERED: NOREPINEPHRINE VIAL 8 MG in IV DEXTROSE 5% 250 ML IV PRN (15:45)
[2020-03-18] MEDS ORDERED: METOPROLOL TARTRATE 5 MG/5 ML VIAL. IVP PRN (15:45)
[2020-03-18] MEDS ORDERED: ALBUMIN HUMAN 5% 500 ML IV PRN (15:45)
--- NOTE | 2020-03-18 15:56 | CONS ---
DATE OF CONSULTATION: PULMONARY CONSULTATION ATTENDING PHYSICIAN: Dr. Adams. REASON FOR CONSULTATION: Wheezing. HISTORY OF PRESENT ILLNESS: The patient is a 59-year-old male who has history of left nephrectomy in 2009, history of diabetes, dyslipidemia, and hypertension. He also has a history of chronic back pain. He was admitted with hypoglycemic encephalopathy. However, his health has been declining progressively in the last one month. He was encephalopathic and received glucagon. He had a cholecystectomy in December of this year and has had confusion since then per 's history. I was today called by Dr. Mukund mckinnon to assess for upper airway wheezing. The patient did receive Ativan, but however, he was not responsive much. He was noted to have audible wheezing, but it was mostly upper airway. His lower lungs and mid lung field did not have any wheezing. A stat chest x-ray was done. He has some volume loss at the bases. Questionable mild CHF. I have been asked to see him for further evaluation. I was unable to obtain much history from the patient, but I have reviewed the detailed chart as well as the imaging on him. The patient did receive blood transfusion today as his hemoglobin was 6.8 and he just finished his transfusion. He had a fever of of 104.8 last night, but has been afebrile since this morning. Consultation requested for further evaluation. PAST MEDICAL HISTORY: Significant for history of chronic bronchitis, history of left nephrectomy, type 2 diabetes, dyslipidemia, hypertension, and chronic back pain. Underlying obesity and encephalopathy. PAST SURGICAL HISTORY: Including cholecystectomy and hernia repair. ALLERGIES: CLINDAMYCIN, LEVAQUIN, MORPHINE, PRAMIPEXOLE AND PREDNISONE, but has received Solu-Medrol. REVIEW OF SYSTEMS: Unable to obtain from the patient. PHYSICAL EXAMINATION: VITAL SIGNS: Reviewed. Pulse ox 93% on room air. Blood pressure is stable. T-max of 104 last night, but has been afebrile today. He has upper airway wheezing around his neck area but the lungs do not have any wheezing. ABDOMEN: Soft and obese. EXTREMITIES: With trace pitting edema. LABORATORY DATA: Reviewed. White cell count 8.4, hemoglobin 6.8, and platelets are 108. His BUN is 29, creatinine of 2.0. INR 1.3. IMPRESSION: 1. Acute respiratory failure with audible upper airway wheezing. Etiology not so obvious. Could be related to reactive airway disease. Other less likely possibility would be a transfusion related acute reaction. The patient has no known asthma. The possibility of tracheal stenosis, needs to be ruled out. Possibility of vocal cord dysfunction secondary to anxiety would also be a consideration. 2. Anemia, status post transfusion. 3. Hypoglycemic encephalopathy, present on admission and still has encephalopathy. 4. Chronic kidney disease. 5. Anemia without any obvious blood loss. RECOMMENDATIONS: 1. I have discussed with Dr. Duval and discussed with RN. We will add BiPAP to improve his work of breathing. 2. The patient did receive IV Solu-Medrol x 1 and we will monitor. 3. We will continue DuoNebs. 4. Add Pulmicort nebulizer. 5. Low dose Lasix 20 mg x 1. 6. Continue antibiotics. 7. We will do a noncontrast CT neck and chest once more stable. 8. We will monitor for any further fever. The patient has been tested COVID negative x 3 recently. Discussed with RN and Dr. Duval. Critical care time 30 minutes. RAHEEM GAMA MD DR: BESS/ana JOB#: [id number] / [id number] AVELINA
[2020-03-18] MEDS ORDERED: MAGNESIUM SULFATE 2GM 50 ML IV ONE (16:00)
--- NOTE | 2020-03-18 16:13 | NUR ---
Talked to Dr duval and Yoseph. CL requested,phone consent per and pt agreeable. Anes will come. Brown old bloody stool. BP 80's on side and pt wont go to back. Alb 500cc started and Levo ordered. ABG to Dr Duval and LA of 7 to him as well. Pt remains on 5ln/c.
[2020-03-18] MEDS ORDERED: ONDANSETRON ODT 4 MG TAB.RAPDIS. PO PRN ×2 (16:15)
[2020-03-18 16:39] LABS: ALBUMIN 1.4 g/dL (3.4-5.0); DIRECT BILIRUBIN 0.8 mg/dL (0.0-0.2); TOTAL BILIRUBIN 1.3 mg/dL (0.2-1.0)
--- NOTE | 2020-03-18 17:27 | RAD ---
CT chest abdomen and pelvis without contrast: History: Blood in stool lactic acidosis liver lesion biliary stent Axial helical images of the chest, abdomen and pelvis were obtained without IV contrast. Comparison: March 16, 2020 CT of the abdomen and pelvis Findings: There is groundglass opacities in the right upper lobe and there is patchy linear opacities bilaterally and there are mild pleural effusions with adjacent infiltrates. There is no mediastinal lymphadenopathy or hematoma. There is no hilar lymphadenopathy. Impression: Mild pleural effusions and mild bilateral infiltrates. This could be secondary to CHF or atypical pneumonia and at least in the lung bases is worse. End Impression CT SCAN OF THE ABDOMEN without IV CONTRAST. Findings: The stent in the common bile duct is again seen. There has been prior left nephrectomy. The urinary bladder is collapsed around a Hernandez and not well evaluated. There is fat-containing inguinal canal hernias. There is a mesh across a ventral abdominal wall hernia. The appendix is normal. The gallbladder has been removed. Liver: There are large hypoattenuating masses in the right lobe of liver. There is mild pneumobilia. Spleen: Unremarkable Pancreas: Unremarkable Adrenal Glands: Unremarkable The right kidney appears normal. Evaluation of stomach and bowel is limited without oral contrast. Evaluation of solid organs is limited without IV contrast. There is no mass or lymphadenopathy. There is no free air. There is no free fluid. The left colon is collapsed and the transverse colon and right colon are mildly dilated. Impression: 1. Large irregular hepatic mass. This is likely a necrotic metastasis. An abscess is not excluded. 6 is unchanged. 2. Biliary stent and mild pneumobilia seen previously. 3. The left colon is collapsed. A stricture at the splenic flexure is possible. End Impression PQRS Compliance Statement: One or more of the following individualized dose reduction techniques were utilized for this examination: 1. Automated exposure control 2. Adjustment of the mA and/or kV according to patient size 3. Use of iterative reconstruction technique Electronically signed by: Azeem Valencia III, MD (03/18/2020 5:24 PM) [facility]
[2020-03-18] MEDS: PANTOPRAZOLE IV PUSH 40 MG VIAL. IVP SCH (17:36)
--- NOTE | 2020-03-18 17:57 | RAD ---
PORTABLE CHEST 1V Clinical History: Reason: Central line insertion / Spl. Instructions: / History: Technique: AP view of the chest was obtained at 03/18/2020 5:06 PM. Comparison: 12:35 PM. Findings: There has been interval placement of a right jugular line with its tip well-positioned directed downward in the low SVC. The cardiomediastinal silhouette is normal. The pulmonary vasculature is normal. The lungs and pleural margins are clear. Impression: Right jugular line well-positioned. No pneumothorax. Electronically signed by: Azeem Valencia III, MD (03/18/2020 5:54 PM) [facility]
--- NOTE | 2020-03-18 18:15 | NUR ---
Family was at bedside, pt was resting. bed alarm on. 10 min later staff heard pt fall to floor, incontinent of red brown mushy stool. CL, IV and tobin intact. Pt assisted back to bed. Dr Adams notified. Pt w/o complaint x there is now a tear on Lt elbow. Steristrips appied. . CT head ordered. Neuro assessment unchanged. Will con t q2 hr neuro checks and notify . Pt alert and talking, aware that he got out of bed after being told to call venita first.
[2020-03-18 19:09] LABS: AFPT MARKER 0.9 ng/mL (0.0-8.3)
[2020-03-18] MEDS: BUDESONIDE 0.5 MG/2 ML NEBU. NEB SCH (20:00)
--- NOTE | 2020-03-18 20:08 | RAD ---
CT Head W/O Contrast: History: Reason: Fall-ICU [phone] / Spl. Instructions: / History: Comparison: March 15, 2020 Axial images were obtained without contrast. There is mild diffuse atrophy. There is no mass effect, extraaxial fluid collections or hydrocephalus. There is no focal loss of huff-white matter distinction to suggest acute ischemia, i.e. stroke. Impression: No acute findings. RS Compliance Statement: One or more of the following individualized dose reduction techniques were utilized for this examination: 1. Automated exposure control 2. Adjustment of the mA and/or kV according to patient size 3. Use of iterative reconstruction technique Electronically signed by: Azeem Valencia III, MD (03/18/2020 8:05 PM) [facility]
[2020-03-18] MEDS: ATORVASTATIN CALCIUM 20 MG TABLET PO SCH (20:48)
[2020-03-18] MEDS: INSULIN GLARGINE SYRINGE. SQ SCH (21:43)
[2020-03-19] VITALS (27 sets, daily range): BP systolic 95–125; BP diastolic 45–71
[2020-03-19] MEDS: MEROPENEM 500 MG in IV NORMAL SALINE 50ML 50 ML IV SCH ×4 (01:25→17:16)
[2020-03-19] MEDS: oxyCODONE IR 5 MG TABLET PO PRN ×2 (04:13→20:30)
[2020-03-19 05:32] LABS: BASO % 0 % (0-3); EOS % 0 % (0-3); LYMPH # 0.8 x10^3/uL (1.0-4.8); LYMPH % 8 % (24-48); MEAN CORPUSCULAR HEMOGLOBIN 29 pg (25-35); MEAN CORPUSCULAR HGB CONC 34 g/dL (31-37); MEAN CORPUSCULAR VOLUME 85 fL (79-100); MONO # 0.3 x10^3/uL (0.0-1.1); MONO % 3 % (0-9); NEUT # 8.6 x10^3/uL (1.8-7.7); NEUT % 88 % (31-73); PLATELET COUNT 55 x10^3/uL (140-400); RED BLOOD COUNT 2.35 x10^6/uL (4.30-5.70); RED CELL DISTRIBUTION WIDTH 17.3 % (11.5-14.5); WHITE BLOOD COUNT 9.8 x10^3/uL (4.0-11.0)
[2020-03-19 05:38] LABS: FIBRINOGEN 376 mg/dL (200-440)
[2020-03-19 05:42] LABS: HEMATOCRIT 20.1 % (39.0-53.0); HEMOGLOBIN 6.9 g/dL (13.0-17.5)
[2020-03-19 06:15] LABS: D-DIMER > 20.00 ug/mlFEU (0.00-0.50)
[2020-03-19 06:23] LABS: ALBUMIN 1.6 g/dL (3.4-5.0); ALBUMIN/GLOBULIN RATIO 0.5 (1.0-1.7); CREATININE 1.9 mg/dL (0.7-1.3); GFR 36.3; TOTAL PROTEIN 4.9 g/dL (6.4-8.2)
[2020-03-19] MEDS: INSULIN LISPRO 300 UNITS/3 ML VIAL. SQ SCH ×4 (07:30→20:40)
[2020-03-19] MEDS: IPRATRPIUM/ALBUTEROL 0.5/2.5MG 3 ML NEBU. NEB SCH ×4 (07:45→20:00)
[2020-03-19] MEDS: BUDESONIDE 0.5 MG/2 ML NEBU. NEB SCH ×2 (07:45→20:00)
--- NOTE | 2020-03-19 08:06 | PDOC ---
Infectious Disease Note Subjective: Subjective Pt transferred to ICU yesterday due to altered mental status, hypotension, wheezing This morning more alert States feels weak No fevers Not on pressors Undergoing blood transfusion Vital Signs: Vital Signs Vital Signs Date Time Temp Pulse Resp B/P (MAP) Pulse Ox O2 Delivery O2 Flow Rate FiO2 03/19/20 07:46 98 Room Air 03/19/20 07:00 97.9 88 24 107/62 (77) 97.9 03/18/20 19:00 3.0 Physical Exam: PHYSICAL EXAM GENERAL: Alert, awake, lethargic male, somewhat confused. HEENT: Normocephalic, atraumatic, anicteric. Oral mucosa dry. No thrush. NECK: Supple. LUNGS: Decreased breath sounds at bases HEART: S1, S2 regular. No murmurs. ABDOMEN: Mildly distended. Bowel sounds present, nontender, no rebound, no guarding. EXTREMITIES: No edema, no cyanosis. Multiple superficial abrasions lower,dry Superficial abrasion left elbow NEUROLOGIC: Alert, awake, somewhat confused. PSYCHIATRIC: Cooperative. Right IJ looks clean Medications: Inpatient Meds: Current Medications Medications (Trade) Dose Ordered Sig/Tory Start Time Stop Time Status Last Admin Dose Admin Acetaminophen (Tylenol Supp) 650 mg PRN Q6HRS PRN 03/16/20 23:00 03/17/20 20:34 650 MG Albumin Human 500 ml @ 125 mls/hr PRN DAILY PRN 03/18/20 15:45 03/18/20 16:07 125 MLS/HR Albuterol Sulfate (Ventolin Neb Soln) 2.5 mg PRN Q4HRS PRN 03/16/20 08:30 Albuterol/ Ipratropium (Duoneb) 3 ml RTQID 03/18/20 12:00 03/19/20 07:45 3 ML Amlodipine Besylate (Norvasc) 10 mg DAILY 03/16/20 09:00 03/18/20 09:57 10 MG Atenolol (Tenormin) 25 mg DAILY 03/17/20 14:00 03/17/20 14:42 DC Atorvastatin Calcium (Lipitor) 20 mg QHS 03/16/20 21:00 03/17/20 21:12 20 MG Budesonide (Pulmicort) 0.5 mg RTBID 03/18/20 20:00 03/19/20 07:45 0.5 MG Ceftriaxone Sodium (Rocephin) 1 gm Q24H 03/16/20 22:00 03/17/20 20:23 DC 03/16/20 21:35 1 GM Dextrose (Dextrose 50%-Water Syringe) 12.5 gm PRN Q15MIN PRN 03/16/20 08:00 Dextrose/Sodium Chloride 1,000 ml @ 150 mls/hr Q6H40M 03/17/20 17:30 03/18/20 13:23 DC 03/18/20 02:00 150 MLS/HR Diclofenac Sodium (Voltaren) 75 mg BID 03/17/20 21:00 03/17/20 20:22 DC Diphenhydramine HCl (Benadryl) 25 mg PRN Q6HRS PRN 03/16/20 13:45 03/16/20 13:41 25 MG Duloxetine HCl (Cymbalta) 60 mg BID 03/16/20 09:00 03/18/20 09:58 60 MG Fentanyl Citrate (Fentanyl 2ml Vial) 50 mcg PRN Q3HRS PRN 03/17/20 20:30 03/18/20 09:54 50 MCG Furosemide (Lasix) 20 mg 1X ONCE 03/18/20 14:30 03/18/20 14:31 DC 03/18/20 14:23 20 MG Haloperidol Lactate (Haldol Inj) 5 mg PRN Q6HRS PRN 03/16/20 10:45 03/16/20 18:15 5 MG Heparin Sodium (Porcine) (Heparin Sodium) 5,000 unit Q8HRS 03/16/20 22:00 03/18/20 14:34 DC 03/18/20 05:01 5,000 UNIT Insulin Glargine (Lantus Syringe) 5 unit QHS 03/18/20 21:00 03/18/20 21:43 5 UNIT Insulin Human Lispro (HumaLOG) 0-7 UNITS TIDACHC 03/16/20 11:30 Ketorolac Tromethamine (Toradol 15mg Vial) 15 mg 1X ONCE 03/17/20 20:15 03/17/20 20:22 DC 03/17/20 20:34 15 MG Lidocaine (Lidoderm) 1 patch PRN DAILY PRN 03/16/20 08:00 03/17/20 07:16 DC Linagliptin (Tradjenta) 5 mg DAILY 03/16/20 09:00 03/18/20 09:57 5 MG Lorazepam (Ativan Inj) 1 mg PRN Q4HRS PRN 03/16/20 03:15 03/18/20 12:08 1 MG Lorazepam (Ativan) 1 mg PRN BID PRN 03/17/20 14:00 03/17/20 21:11 1 MG Magnesium Sulfate 50 ml @ 25 mls/hr 1X ONCE 03/18/20 16:00 03/18/20 17:59 DC 03/18/20 17:36 25 MLS/HR Meropenem 500 mg/ Sodium Chloride 50 ml @ 100 mls/hr Q6HRS 03/18/20 13:30 03/19/20 05:47 100 MLS/HR Methylprednisolone Sodium Succinate (SOLU-Medrol 125MG VIAL) 125 mg 1X ONCE 03/18/20 13:00 03/18/20 13:01 DC 03/18/20 12:26 125 MG Metoprolol Tartrate (Lopressor Vial) 5 mg PRN Q6HRS PRN 03/18/20 15:45 Metoprolol Tartrate (Lopressor) 25 mg 1X ONCE 03/17/20 21:00 03/17/20 21:01 DC 03/17/20 21:12 25 MG Montelukast Sodium (Singulair) 10 mg DAILY 03/16/20 09:00 03/18/20 09:58 10 MG Non-Formulary Medication (Albuterol Sulfate (Ventolin Hfa Inhaler)) 2 puff PRN Q4-6HRS 03/16/20 08:00 UNV Non-Formulary Medication (Ondansetron Hcl ) 8 mg PRN BID PRN 03/17/20 14:00 03/18/20 16:12 DC Norepinephrine Bitartrate 8 mg/ Dextrose 258 ml @ 17.705 mls/ hr CONT PRN 03/18/20 15:45 Ondansetron HCl (Zofran Odt) 8 mg PRN BID PRN 03/18/20 16:15 Ondansetron HCl (Zofran) 4 mg PRN Q4HRS PRN 03/16/20 21:00 Oxycodone HCl (Roxicodone) 15 mg PRN Q6HRS PRN 03/17/20 14:15 03/19/20 04:13 15 MG Pantoprazole Sodium (PROTONIX VIAL for IV PUSH) 40 mg BIDAC 03/18/20 16:30 03/18/20 17:36 40 MG Pantoprazole Sodium (Protonix) 40 mg DAILYAC 03/16/20 08:30 03/18/20 14:14 DC 03/18/20 04:58 40 MG Piperacillin Sod/ Tazobactam Sod (Zosyn Per Pharmacy) 1 each PRN DAILY PRN 03/17/20 20:30 03/18/20 13:08 DC Piperacillin Sod/ Tazobactam Sod 3.375 gm/Sodium Chloride 50 ml @ 100 mls/hr Q6H 03/17/20 21:00 03/18/20 12:23 DC 03/18/20 08:37 100 MLS/HR Polyethylene Glycol (miraLAX PACKET) 17 gm PRN DAILY PRN 03/16/20 08:00 Sodium Chloride 154 meq/Dextrose 1,038.5 ml @ 75 mls/hr [id number] 03/17/20 04:45 03/17/20 13:10 DC 03/17/20 04:45 75 MLS/HR Tizanidine HCl (Zanaflex) 4 mg PRN Q6HRS PRN 03/17/20 14:00 Labs: Lab Laboratory Tests Test 03/18/20 11:37 03/18/20 14:20 03/18/20 15:30 03/18/20 17:53 Glucose (Fingerstick) 132 mg/dL (70-99) 78 mg/dL (70-99) White Blood Count 9.6 x10^3/uL (4.0-11.0) Red Blood Count 3.29 x10^6/uL (4.30-5.70) Hemoglobin 9.5 g/dL (13.0-17.5) Hematocrit 28.4 % (39.0-53.0) Mean Corpuscular Volume 87 fL (79-100) Mean Corpuscular Hemoglobin 29 pg (25-35) Mean Corpuscular Hemoglobin Concent 34 g/dL (31-37) Red Cell Distribution Width 17.3 % (11.5-14.5) Platelet Count 104 x10^3/uL (140-400) Prothrombin Time 18.2 SEC (11.7-14.0) Prothromb Time International Ratio 1.5 (0.8-1.1) Sodium Level 129 mmol/L (136-145) Potassium Level 4.3 mmol/L (3.5-5.1) Chloride Level 97 mmol/L (98-107) Carbon Dioxide Level 15 mmol/L (21-32) Anion Gap 17 (6-14) Blood Urea Nitrogen 30 mg/dL (8-26) Creatinine 2.1 mg/dL (0.7-1.3) Estimated GFR (Cockcroft-Gault) 32.4 Glucose Level 87 mg/dL (70-99) Lactic Acid Level 7.2 mmol/L (0.4-2.0) Calcium Level 7.1 mg/dL (8.5-10.1) Magnesium Level 1.5 mg/dL (1.8-2.4) Total Bilirubin 1.3 mg/dL (0.2-1.0) Direct Bilirubin 0.8 mg/dL (0.0-0.2) Aspartate Amino Transf (AST/SGOT) 92 U/L (15-37) Alanine Aminotransferase (ALT/SGPT) 54 U/L (16-63) Alkaline Phosphatase 287 U/L (46-116) Total Protein 5.0 g/dL (6.4-8.2) Albumin 1.4 g/dL (3.4-5.0) O2 Saturation 96 % (92-99) Arterial Blood pH 7.47 (7.35-7.45) Arterial Blood pCO2 at Patient Temp 17 mmHg (35-46) Arterial Blood pO2 at Patient Temp 91 mmHg (65-108) Arterial Blood HCO3 12 mmol/L (21-28) Arterial Blood Base Excess -10 mmol/L (-3-3) FiO2 5l nc Test 03/18/20 18:00 03/18/20 21:17 03/19/20 05:25 Lactic Acid Level 5.9 mmol/L (0.4-2.0) Glucose (Fingerstick) 125 mg/dL (70-99) White Blood Count 9.8 x10^3/uL (4.0-11.0) Red Blood Count 2.35 x10^6/uL (4.30-5.70) Hemoglobin 6.9 g/dL (13.0-17.5) Hematocrit 20.1 % (39.0-53.0) Mean Corpuscular Volume 85 fL (79-100) Mean Corpuscular Hemoglobin 29 pg (25-35) Mean Corpuscular Hemoglobin Concent 34 g/dL (31-37) Red Cell Distribution Width 17.3 % (11.5-14.5) Platelet Count 55 x10^3/uL (140-400) Neutrophils (%) (Auto) 88 % (31-73) Lymphocytes (%) (Auto) 8 % (24-48) Monocytes (%) (Auto) 3 % (0-9) Eosinophils (%) (Auto) 0 % (0-3) Basophils (%) (Auto) 0 % (0-3) Neutrophils # (Auto) 8.6 x10^3/uL (1.8-7.7) Lymphocytes # (Auto) 0.8 x10^3/uL (1.0-4.8) Monocytes # (Auto) 0.3 x10^3/uL (0.0-1.1) Eosinophils # (Auto) 0.0 x10^3/uL (0.0-0.7) Basophils # (Auto) 0.0 x10^3/uL (0.0-0.2) Fibrinogen 376 mg/dL (200-440) D-Dimer (Jackelin) > 20.00 ug/mlFEU Sodium Level 131 mmol/L (136-145) Potassium Level 4.0 mmol/L (3.5-5.1) Chloride Level 97 mmol/L (98-107) Carbon Dioxide Level 23 mmol/L (21-32) Anion Gap 11 (6-14) Blood Urea Nitrogen 30 mg/dL (8-26) Creatinine 1.9 mg/dL (0.7-1.3) Estimated GFR (Cockcroft-Gault) 36.3 BUN/Creatinine Ratio 16 (6-20) Glucose Level 202 mg/dL (70-99) Calcium Level 7.0 mg/dL (8.5-10.1) Ferritin 2072 ng/mL (26-388) Total Bilirubin 1.0 mg/dL (0.2-1.0) Aspartate Amino Transf (AST/SGOT) 42 U/L (15-37) Alanine Aminotransferase (ALT/SGPT) 36 U/L (16-63) Alkaline Phosphatase 169 U/L (46-116) Total Protein 4.9 g/dL (6.4-8.2) Albumin 1.6 g/dL (3.4-5.0) Albumin/Globulin Ratio 0.5 (1.0-1.7) Micro RUN DATE: 03/18/20 [facility] *LIVE* PAGE 1 RUN TIME: 1139 Specimen Inquiry -- PATIENT: ALMA,LASHAY Al ACCT: [id number] LOC: [address] [place] [id number] U: [id number] AGE/SX: 59/M ROOM: [facility] RE03/15/[address]: DAKSHA MCCULLOUGH MD : 1960 BED: 1 DIS: STATUS: ADM John TLOC: SPEC #: [id number] ABRAHAM: 03/15/20-2016 STATUS: RES REQ #: [id number] RECD: 03/15/20-[address] [facility] [address]: CHARY KOEHLER MD SOURCE: BLOOD ENTR: 03/17/20 [facility] DR: MARILOU LOPEZ MD [facility]: ORDERED: BLD CULT - LC Procedure Result BLOOD CULTURE LC Preliminary Preliminary GROWTH OF GRAM NEGATIVE RODS on 03/18/20 at 1133 FINAL ID= [ESCHERICHIA COLI] ESCHERICHIA COLI Unless otherwise specified, Testing Performed by: [address] [address] For Inquires, the Physician may contact the Microbiology department at [phone] Objective: Assessment: 1. Severe Sepsis present on admission from gram-negative bacteremia. 2. Gram-negative bacteremia, Escherichia coli. 3. Leukocytosis and lactic acidosis. 4. Anemia, status post PRBC. 5. Hyponatremia. 6. Encephalopathy, likely metabolic, CT head negative 7. History of renal cancer.S/P Nephrectomy 8. Abnormal LFTs ,Liver mass 9. History of ALLERGIES TO CLINDAMYCIN AND LEVAQUIN. 10. Recent placement of metallic stent 11. Thrombocytopenia ? Sepsis vs other 12 COVID-19 pending Plan: Plan of Care Cont meropenem. Follow-up blood culture results Follow up repeat blood cultures. F/U AM labs. Follow-up COVID-19 Tumor markers pending Maintain aspiration precaution. Local wound care as directed Discussed with nursing staff NELIA JAMES MD Mar 19, 2020 08:06
[2020-03-19] MEDS: METOPROLOL TART IMMED RELEASE 25 MG TABLET. PO SCH ×2 (09:00→20:31)
[2020-03-19] MEDS: amLODIPine BESYLATE 10 MG TABLET PO SCH (09:00)
--- NOTE | 2020-03-19 09:36 | PDOC ---
PROGRESS NOTES Chief Complaint Chief Complaint impression GI BLEED, TRANSFUSED Hyponatremia Liver mass History of renal cell carcinoma Altered mental status Recent placement of percutaneous biliary drain Severe sepsis Gram negative bacteremia acute METABOLIC ENCEPHALOPATHY COPD - will cont home nebs Large irregular hepatic mass. This is likely a necrotic metastasis. An abscess is not excluded. 6 is unchanged. Normocytic anemia with GI bleed (melena/hematochezia): Hgb 6.8 and just received 1U transfusion PUD: prepyloric ulcers via EGD 03/10/2020 Biliary stent and mild pneumobilia seen previously. Altered mental status Recent placement of percutaneous biliary drain [facility] The left colon is collapsed. A stricture at the splenic flexure is possible. Apparently issues w/ confusion since cholecystectomy at on 12/25/19. Per nurse d/w , "drain" placed ~3 weeks after surgery, then "stent" placed ~1 week ago. ?bile leak Reported h/o hyponatremia per labs at . Liver biopsy 2009 from LEFT lobe of liver during w/u of renal cancer; cavernous hemangioma. 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 She notes he has had a progressive decline over the last month or so. Patient is encephalopathic and unable to answer questions. Patient given glucagon prior to arrival and blood sugar improved from 55-83. notes issues w/ confusion since cholecystectomy at on 12/25/19. notes an IR drain was placed after a readmission for worsening and remained in place for 3 weeks and was removed at the end of January, then he returned for common bile duct stent placement last week. She notes that she was told that he had a "small spot" on his liver at [facility] and that his sodium was "better" at 129 last week. She also notes he has lost 46# in the past 2 months and she is not aware of any diagnosis for him. Patient is not even speaking, he is moaning and writhing in bed. Has been tested 3x for covid 19 and negative with last check over a week ago. CXR with pulmonary vasculare congestion and CT head negative for acute process. Labs significant for WBC 17.2, Hb 8.2, platelets 244, INR 1.3, Na 123, K 4.7, BUN 49, Cr 3.4, Albumin 1.7, Glucose 97, Mg 1.7, AST 84, ALT 66, Alk phos 228, Bili 1.2. BNP 40089 Admitted to ICU for further care. Overnight transferred from ICU febrile to 104.8 F overnight. Was tachycardic, improved with IV fluids and home metoprolol dosing. Less confused. Hb 6.8. VS stabilized after initiation of zosyn. Addendum: Called at 1130 for worsening respiratory rate and blood in stool. CXR with poor inspiratory effort and mild fluid overload. Pulmonology consulted, BIPAP ordered for comfort with respiratory rate of 42/min CC time 74 minutes Vitals Vitals Vital Signs Date Time Temp Pulse Resp B/P (MAP) Pulse Ox O2 Delivery O2 Flow Rate FiO2 03/19/20 09:09 97.9 96 21 123/62 97.9 03/19/20 09:00 100 Room Air 03/18/20 19:00 3.0 Physical Exam Physical Exam GENERAL: Alert, awake, lethargic male, somewhat confused. HEENT: Normocephalic, atraumatic, anicteric. Oral mucosa dry. No thrush. NECK: Supple. Right IJ present LUNGS: Decreased breath sounds at bases. No wheezing. No accessory muscle use. HEART: S1, S2 regular. No murmurs. ABDOMEN: Mildly distended. Bowel sounds present, nontender, no rebound, no guarding. EXTREMITIES: No edema, no cyanosis. NEUROLOGIC: Alert, awake, somewhat confused. PSYCHIATRIC: Cooperative. 1. Severe Sepsis present on admission from gram-negative bacteremia. 2. Gram-negative bacteremia, Escherichia coli. 3. Leukocytosis and lactic acidosis. 4. Anemia, status post PRBC. 5. Hyponatremia. 6. Encephalopathy, likely metabolic, CT head negative 7. History of renal cancer.S/P Nephrectomy 8. Abnormal LFTs ,Liver mass 9. History of ALLERGIES TO CLINDAMYCIN AND LEVAQUIN. 10. Recent placement of metallic stent 11. Thrombocytopenia ? Sepsis vs other 12 wheezing 03/17 , COVID-19 pending Cont meropenem. Awaiting IR biopsy of liver lesion. Follow up repeat blood cultures. F/U AM labs. Follow-up COVID-19 Tumor markers pending Maintain aspiration precaution. GI CONSULT GEN SURG CONSULT Critically ill General: Alert, Cooperative, No acute distress Heart: Regular rate, No murmurs Lungs: Wheezing Abdomen: Normal bowel sounds, Soft, No tenderness Extremities: No cyanosis, No edema, Normal pulses Skin: No rashes Labs LABS CT chest abdomen and pelvis without contrast: History: Blood in stool lactic acidosis liver lesion biliary stent Axial helical images of the chest, abdomen and pelvis were obtained without IV contrast. Comparison: March 16, 2020 CT of the abdomen and pelvis Findings: There is groundglass opacities in the right upper lobe and there is patchy linear opacities bilaterally and there are mild pleural effusions with adjacent infiltrates. There is no mediastinal lymphadenopathy or hematoma. There is no hilar lymphadenopathy. Impression: Mild pleural effusions and mild bilateral infiltrates. This could be secondary to CHF or atypical pneumonia and at least in the lung bases is worse. End Impression CT SCAN OF THE ABDOMEN without IV CONTRAST. Findings: The stent in the common bile duct is again seen. There has been prior left nephrectomy. The urinary bladder is collapsed around a Hernandez and not well evaluated. There is fat-containing inguinal canal hernias. There is a mesh across a ventral abdominal wall hernia. The appendix is normal. The gallbladder has been removed. Liver: There are large hypoattenuating masses in the right lobe of liver. There is mild pneumobilia. Spleen: Unremarkable Pancreas: Unremarkable Adrenal Glands: Unremarkable The right kidney appears normal. Evaluation of stomach and bowel is limited without oral contrast. Evaluation of solid organs is limited without IV contrast. There is no mass or lymphadenopathy. There is no free air. There is no free fluid. The left colon is collapsed and the transverse colon and right colon are mildly dilated. Impression: 1. Large irregular hepatic mass. This is likely a necrotic metastasis. An abscess is not excluded. 6 is unchanged. 2. Biliary stent and mild pneumobilia seen previously. 3. The left colon is collapsed. A stricture at the splenic flexure is possible. End Impression PQRS Compliance Statement: One or more of the following individualized dose reduction techniques were utilized for this examination: 1. Automated exposure control 2. Adjustment of the mA and/or kV according to patient size 3. Use of iterative reconstruction technique Electronically signed by: Shelley Flor III, MD (03/18/2020 5:24 PM) [facility] DICTATED and SIGNED BY: SHELLEY FLOR III, MD DATE: 03/18/201723 REASON: Fall-ICU [id number] PROCEDURE: CT HEAD WO CONTRAST CT Head W/O Contrast: History: Reason: Fall-ICU [id number] / Spl. Instructions: / History: Comparison: March 15, 2020 Axial images were obtained without contrast. There is mild diffuse atrophy. There is no mass effect, extraaxial fluid collections or hydrocephalus. There is no focal loss of huff-white matter distinction to suggest acute ischemia, i.e. stroke. Impression: No acute findings. RS Compliance Statement: One or more of the following individualized dose reduction techniques were utilized for this examination: 1. Automated exposure control 2. Adjustment of the mA and/or kV according to patient size 3. Use of iterative reconstruction technique Electronically signed by: Shelley Flor III, MD (03/18/2020 8:05 PM) [facility] DICTATED and SIGNED BY: SHELLEY FLOR III, MD DATE: 03/18/202004 Laboratory Tests Test 03/18/20 11:37 03/18/20 14:20 03/18/20 15:30 03/18/20 17:53 Glucose (Fingerstick) 132 mg/dL (70-99) 78 mg/dL (70-99) White Blood Count 9.6 x10^3/uL (4.0-11.0) Red Blood Count 3.29 x10^6/uL (4.30-5.70) Hemoglobin 9.5 g/dL (13.0-17.5) Hematocrit 28.4 % (39.0-53.0) Mean Corpuscular Volume 87 fL (79-100) Mean Corpuscular Hemoglobin 29 pg (25-35) Mean Corpuscular Hemoglobin Concent 34 g/dL (31-37) Red Cell Distribution Width 17.3 % (11.5-14.5) Platelet Count 104 x10^3/uL (140-400) Prothrombin Time 18.2 SEC (11.7-14.0) Prothromb Time International Ratio 1.5 (0.8-1.1) Sodium Level 129 mmol/L (136-145) Potassium Level 4.3 mmol/L (3.5-5.1) Chloride Level 97 mmol/L (98-107) Carbon Dioxide Level 15 mmol/L (21-32) Anion Gap 17 (6-14) Blood Urea Nitrogen 30 mg/dL (8-26) Creatinine 2.1 mg/dL (0.7-1.3) Estimated GFR (Cockcroft-Gault) 32.4 Glucose Level 87 mg/dL (70-99) Lactic Acid Level 7.2 mmol/L (0.4-2.0) Calcium Level 7.1 mg/dL (8.5-10.1) Magnesium Level 1.5 mg/dL (1.8-2.4) Total Bilirubin 1.3 mg/dL (0.2-1.0) Direct Bilirubin 0.8 mg/dL (0.0-0.2) Aspartate Amino Transf (AST/SGOT) 92 U/L (15-37) Alanine Aminotransferase (ALT/SGPT) 54 U/L (16-63) Alkaline Phosphatase 287 U/L (46-116) Total Protein 5.0 g/dL (6.4-8.2) Albumin 1.4 g/dL (3.4-5.0) O2 Saturation 96 % (92-99) Arterial Blood pH 7.47 (7.35-7.45) Arterial Blood pCO2 at Patient Temp 17 mmHg (35-46) Arterial Blood pO2 at Patient Temp 91 mmHg (65-108) Arterial Blood HCO3 12 mmol/L (21-28) Arterial Blood Base Excess -10 mmol/L (-3-3) FiO2 5l nc Test 03/18/20 18:00 03/18/20 21:17 03/19/20 05:25 Lactic Acid Level 5.9 mmol/L (0.4-2.0) Glucose (Fingerstick) 125 mg/dL (70-99) White Blood Count 9.8 x10^3/uL (4.0-11.0) Red Blood Count 2.35 x10^6/uL (4.30-5.70) Hemoglobin 6.9 g/dL (13.0-17.5) Hematocrit 20.1 % (39.0-53.0) Mean Corpuscular Volume 85 fL (79-100) Mean Corpuscular Hemoglobin 29 pg (25-35) Mean Corpuscular Hemoglobin Concent 34 g/dL (31-37) Red Cell Distribution Width 17.3 % (11.5-14.5) Platelet Count 55 x10^3/uL (140-400) Neutrophils (%) (Auto) 88 % (31-73) Lymphocytes (%) (Auto) 8 % (24-48) Monocytes (%) (Auto) 3 % (0-9) Eosinophils (%) (Auto) 0 % (0-3) Basophils (%) (Auto) 0 % (0-3) Neutrophils # (Auto) 8.6 x10^3/uL (1.8-7.7) Lymphocytes # (Auto) 0.8 x10^3/uL (1.0-4.8) Monocytes # (Auto) 0.3 x10^3/uL (0.0-1.1) Eosinophils # (Auto) 0.0 x10^3/uL (0.0-0.7) Basophils # (Auto) 0.0 x10^3/uL (0.0-0.2) Fibrinogen 376 mg/dL (200-440) D-Dimer (Jackelin) > 20.00 ug/mlFEU Sodium Level 131 mmol/L (136-145) Potassium Level 4.0 mmol/L (3.5-5.1) Chloride Level 97 mmol/L (98-107) Carbon Dioxide Level 23 mmol/L (21-32) Anion Gap 11 (6-14) Blood Urea Nitrogen 30 mg/dL (8-26) Creatinine 1.9 mg/dL (0.7-1.3) Estimated GFR (Cockcroft-Gault) 36.3 BUN/Creatinine Ratio 16 (6-20) Glucose Level 202 mg/dL (70-99) Calcium Level 7.0 mg/dL (8.5-10.1) Ferritin 2072 ng/mL (26-388) Total Bilirubin 1.0 mg/dL (0.2-1.0) Aspartate Amino Transf (AST/SGOT) 42 U/L (15-37) Alanine Aminotransferase (ALT/SGPT) 36 U/L (16-63) Alkaline Phosphatase 169 U/L (46-116) Total Protein 4.9 g/dL (6.4-8.2) Albumin 1.6 g/dL (3.4-5.0) Albumin/Globulin Ratio 0.5 (1.0-1.7) Assessment and Plan Assessmemt and Plan Problems Medical Problems: (1) Acute kidney injury Status: Acute (2) Encephalopathy Status: Acute (3) Hypoglycemia Status: Acute (4) Hyponatremia Status: Acute (5) Seizure Status: Acute Comment Review of Relevant I have reviewed the following items clarisse (where applicable) has been applied. Labs Laboratory Tests Test 03/17/20 11:00 03/17/20 11:53 03/17/20 17:06 03/17/20 19:52 White Blood Count 8.1 x10^3/uL (4.0-11.0) Red Blood Count 2.74 x10^6/uL (4.30-5.70) Hemoglobin 8.1 g/dL (13.0-17.5) Hematocrit 23.7 % (39.0-53.0) Mean Corpuscular Volume 87 fL (79-100) Mean Corpuscular Hemoglobin 30 pg (25-35) Mean Corpuscular Hemoglobin Concent 34 g/dL (31-37) Red Cell Distribution Width 17.5 % (11.5-14.5) Platelet Count 177 x10^3/uL (140-400) Neutrophils (%) (Auto) 81 % (31-73) Lymphocytes (%) (Auto) 11 % (24-48) Monocytes (%) (Auto) 6 % (0-9) Eosinophils (%) (Auto) 1 % (0-3) Basophils (%) (Auto) 1 % (0-3) Neutrophils # (Auto) 6.6 x10^3/uL (1.8-7.7) Lymphocytes # (Auto) 0.9 x10^3/uL (1.0-4.8) Monocytes # (Auto) 0.5 x10^3/uL (0.0-1.1) Eosinophils # (Auto) 0.1 x10^3/uL (0.0-0.7) Basophils # (Auto) 0.1 x10^3/uL (0.0-0.2) Sodium Level 134 mmol/L (136-145) Potassium Level 3.9 mmol/L (3.5-5.1) Chloride Level 100 mmol/L (98-107) Carbon Dioxide Level 24 mmol/L (21-32) Anion Gap 10 (6-14) Blood Urea Nitrogen 30 mg/dL (8-26) Creatinine 1.9 mg/dL (0.7-1.3) Estimated GFR (Cockcroft-Gault) 36.3 BUN/Creatinine Ratio 16 (6-20) Glucose Level 88 mg/dL (70-99) Calcium Level 7.4 mg/dL (8.5-10.1) Total Bilirubin 0.6 mg/dL (0.2-1.0) Aspartate Amino Transf (AST/SGOT) 63 U/L (15-37) Alanine Aminotransferase (ALT/SGPT) 52 U/L (16-63) Alkaline Phosphatase 216 U/L (46-116) Total Protein 5.5 g/dL (6.4-8.2) Albumin 1.4 g/dL (3.4-5.0) Albumin/Globulin Ratio 0.3 (1.0-1.7) Glucose (Fingerstick) 88 mg/dL (70-99) 102 mg/dL (70-99) 97 mg/dL (70-99) Test 03/18/20 05:10 03/18/20 08:00 03/18/20 11:37 03/18/20 14:20 White Blood Count 8.4 x10^3/uL (4.0-11.0) 9.6 x10^3/uL (4.0-11.0) Red Blood Count 2.32 x10^6/uL (4.30-5.70) 3.29 x10^6/uL (4.30-5.70) Hemoglobin 6.8 g/dL (13.0-17.5) 9.5 g/dL (13.0-17.5) Hematocrit 19.9 % (39.0-53.0) 28.4 % (39.0-53.0) Mean Corpuscular Volume 86 fL (79-100) 87 fL (79-100) Mean Corpuscular Hemoglobin 29 pg (25-35) 29 pg (25-35) Mean Corpuscular Hemoglobin Concent 34 g/dL (31-37) 34 g/dL (31-37) Red Cell Distribution Width 17.7 % (11.5-14.5) 17.3 % (11.5-14.5) Platelet Count 108 x10^3/uL (140-400) 104 x10^3/uL (140-400) Sodium Level 131 mmol/L (136-145) 129 mmol/L (136-145) Potassium Level 4.1 mmol/L (3.5-5.1) 4.3 mmol/L (3.5-5.1) Chloride Level 99 mmol/L (98-107) 97 mmol/L (98-107) Carbon Dioxide Level 22 mmol/L (21-32) 15 mmol/L (21-32) Anion Gap 10 (6-14) 17 (6-14) Blood Urea Nitrogen 29 mg/dL (8-26) 30 mg/dL (8-26) Creatinine 2.0 mg/dL (0.7-1.3) 2.1 mg/dL (0.7-1.3) Estimated GFR (Cockcroft-Gault) 34.3 32.4 Glucose Level 193 mg/dL (70-99) 87 mg/dL (70-99) Calcium Level 6.4 mg/dL (8.5-10.1) 7.1 mg/dL (8.5-10.1) Total Bilirubin 0.6 mg/dL (0.2-1.0) 1.3 mg/dL (0.2-1.0) Direct Bilirubin 0.4 mg/dL (0.0-0.2) 0.8 mg/dL (0.0-0.2) Aspartate Amino Transf (AST/SGOT) 44 U/L (15-37) 92 U/L (15-37) Alanine Aminotransferase (ALT/SGPT) 41 U/L (16-63) 54 U/L (16-63) Alkaline Phosphatase 182 U/L (46-116) 287 U/L (46-116) Total Protein 4.6 g/dL (6.4-8.2) 5.0 g/dL (6.4-8.2) Albumin 1.2 g/dL (3.4-5.0) 1.4 g/dL (3.4-5.0) Tumor Marker Alpha Fetoprotein 0.9 ng/mL (0.0-8.3) Glucose (Fingerstick) 210 mg/dL (70-99) 132 mg/dL (70-99) Prothrombin Time 18.2 SEC (11.7-14.0) Prothromb Time International Ratio 1.5 (0.8-1.1) Lactic Acid Level 7.2 mmol/L (0.4-2.0) Magnesium Level 1.5 mg/dL (1.8-2.4) Test 03/18/20 15:30 03/18/20 17:53 03/18/20 18:00 03/18/20 21:17 O2 Saturation 96 % (92-99) Arterial Blood pH 7.47 (7.35-7.45) Arterial Blood pCO2 at Patient Temp 17 mmHg (35-46) Arterial Blood pO2 at Patient Temp 91 mmHg (65-108) Arterial Blood HCO3 12 mmol/L (21-28) Arterial Blood Base Excess -10 mmol/L (-3-3) FiO2 5l nc Glucose (Fingerstick) 78 mg/dL (70-99) 125 mg/dL (70-99) Lactic Acid Level 5.9 mmol/L (0.4-2.0) Test 03/19/20 05:25 White Blood Count 9.8 x10^3/uL (4.0-11.0) Red Blood Count 2.35 x10^6/uL (4.30-5.70) Hemoglobin 6.9 g/dL (13.0-17.5) Hematocrit 20.1 % (39.0-53.0) Mean Corpuscular Volume 85 fL (79-100) Mean Corpuscular Hemoglobin 29 pg (25-35) Mean Corpuscular Hemoglobin Concent 34 g/dL (31-37) Red Cell Distribution Width 17.3 % (11.5-14.5) Platelet Count 55 x10^3/uL (140-400) Neutrophils (%) (Auto) 88 % (31-73) Lymphocytes (%) (Auto) 8 % (24-48) Monocytes (%) (Auto) 3 % (0-9) Eosinophils (%) (Auto) 0 % (0-3) Basophils (%) (Auto) 0 % (0-3) Neutrophils # (Auto) 8.6 x10^3/uL (1.8-7.7) Lymphocytes # (Auto) 0.8 x10^3/uL (1.0-4.8) Monocytes # (Auto) 0.3 x10^3/uL (0.0-1.1) Eosinophils # (Auto) 0.0 x10^3/uL (0.0-0.7) Basophils # (Auto) 0.0 x10^3/uL (0.0-0.2) Fibrinogen 376 mg/dL (200-440) D-Dimer (Jackelin) > 20.00 ug/mlFEU Sodium Level 131 mmol/L (136-145) Potassium Level 4.0 mmol/L (3.5-5.1) Chloride Level 97 mmol/L (98-107) Carbon Dioxide Level 23 mmol/L (21-32) Anion Gap 11 (6-14) Blood Urea Nitrogen 30 mg/dL (8-26) Creatinine 1.9 mg/dL (0.7-1.3) Estimated GFR (Cockcroft-Gault) 36.3 BUN/Creatinine Ratio 16 (6-20) Glucose Level 202 mg/dL (70-99) Calcium Level 7.0 mg/dL (8.5-10.1) Ferritin 2072 ng/mL (26-388) Total Bilirubin 1.0 mg/dL (0.2-1.0) Aspartate Amino Transf (AST/SGOT) 42 U/L (15-37) Alanine Aminotransferase (ALT/SGPT) 36 U/L (16-63) Alkaline Phosphatase 169 U/L (46-116) Total Protein 4.9 g/dL (6.4-8.2) Albumin 1.6 g/dL (3.4-5.0) Albumin/Globulin Ratio 0.5 (1.0-1.7) Laboratory Tests Test 03/18/20 11:37 03/18/20 14:20 03/18/20 15:30 03/18/20 17:53 Glucose (Fingerstick) 132 mg/dL (70-99) 78 mg/dL (70-99) White Blood Count 9.6 x10^3/uL (4.0-11.0) Red Blood Count 3.29 x10^6/uL (4.30-5.70) Hemoglobin 9.5 g/dL (13.0-17.5) Hematocrit 28.4 % (39.0-53.0) Mean Corpuscular Volume 87 fL (79-100) Mean Corpuscular Hemoglobin 29 pg (25-35) Mean Corpuscular Hemoglobin Concent 34 g/dL (31-37) Red Cell Distribution Width 17.3 % (11.5-14.5) Platelet Count 104 x10^3/uL (140-400) Prothrombin Time 18.2 SEC (11.7-14.0) Prothromb Time International Ratio 1.5 (0.8-1.1) Sodium Level 129 mmol/L (136-145) Potassium Level 4.3 mmol/L (3.5-5.1) Chloride Level 97 mmol/L (98-107) Carbon Dioxide Level 15 mmol/L (21-32) Anion Gap 17 (6-14) Blood Urea Nitrogen 30 mg/dL (8-26) Creatinine 2.1 mg/dL (0.7-1.3) Estimated GFR (Cockcroft-Gault) 32.4 Glucose Level 87 mg/dL (70-99) Lactic Acid Level 7.2 mmol/L (0.4-2.0) Calcium Level 7.1 mg/dL (8.5-10.1) Magnesium Level 1.5 mg/dL (1.8-2.4) Total Bilirubin 1.3 mg/dL (0.2-1.0) Direct Bilirubin 0.8 mg/dL (0.0-0.2) Aspartate Amino Transf (AST/SGOT) 92 U/L (15-37) Alanine Aminotransferase (ALT/SGPT) 54 U/L (16-63) Alkaline Phosphatase 287 U/L (46-116) Total Protein 5.0 g/dL (6.4-8.2) Albumin 1.4 g/dL (3.4-5.0) O2 Saturation 96 % (92-99) Arterial Blood pH 7.47 (7.35-7.45) Arterial Blood pCO2 at Patient Temp 17 mmHg (35-46) Arterial Blood pO2 at Patient Temp 91 mmHg (65-108) Arterial Blood HCO3 12 mmol/L (21-28) Arterial Blood Base Excess -10 mmol/L (-3-3) FiO2 5l nc Test 03/18/20 18:00 03/18/20 21:17 03/19/20 05:25 Lactic Acid Level 5.9 mmol/L (0.4-2.0) Glucose (Fingerstick) 125 mg/dL (70-99) White Blood Count 9.8 x10^3/uL (4.0-11.0) Red Blood Count 2.35 x10^6/uL (4.30-5.70) Hemoglobin 6.9 g/dL (13.0-17.5) Hematocrit 20.1 % (39.0-53.0) Mean Corpuscular Volume 85 fL (79-100) Mean Corpuscular Hemoglobin 29 pg (25-35) Mean Corpuscular Hemoglobin Concent 34 g/dL (31-37) Red Cell Distribution Width 17.3 % (11.5-14.5) Platelet Count 55 x10^3/uL (140-400) Neutrophils (%) (Auto) 88 % (31-73) Lymphocytes (%) (Auto) 8 % (24-48) Monocytes (%) (Auto) 3 % (0-9) Eosinophils (%) (Auto) 0 % (0-3) Basophils (%) (Auto) 0 % (0-3) Neutrophils # (Auto) 8.6 x10^3/uL (1.8-7.7) Lymphocytes # (Auto) 0.8 x10^3/uL (1.0-4.8) Monocytes # (Auto) 0.3 x10^3/uL (0.0-1.1) Eosinophils # (Auto) 0.0 x10^3/uL (0.0-0.7) Basophils # (Auto) 0.0 x10^3/uL (0.0-0.2) Fibrinogen 376 mg/dL (200-440) D-Dimer (Jackelin) > 20.00 ug/mlFEU Sodium Level 131 mmol/L (136-145) Potassium Level 4.0 mmol/L (3.5-5.1) Chloride Level 97 mmol/L (98-107) Carbon Dioxide Level 23 mmol/L (21-32) Anion Gap 11 (6-14) Blood Urea Nitrogen 30 mg/dL (8-26) Creatinine 1.9 mg/dL (0.7-1.3) Estimated GFR (Cockcroft-Gault) 36.3 BUN/Creatinine Ratio 16 (6-20) Glucose Level 202 mg/dL (70-99) Calcium Level 7.0 mg/dL (8.5-10.1) Ferritin 2072 ng/mL (26-388) Total Bilirubin 1.0 mg/dL (0.2-1.0) Aspartate Amino Transf (AST/SGOT) 42 U/L (15-37) Alanine Aminotransferase (ALT/SGPT) 36 U/L (16-63) Alkaline Phosphatase 169 U/L (46-116) Total Protein 4.9 g/dL (6.4-8.2) Albumin 1.6 g/dL (3.4-5.0) Albumin/Globulin Ratio 0.5 (1.0-1.7) Microbiology 03/16/20 Blood Culture - Preliminary, Resulted NO GROWTH AFTER 3 DAYS Medications Current Medications Haloperidol Lactate (Haldol Inj) 5 mg 1X ONCE IM Last administered on 03/15at 19:30; Start 03/15/20 at 20:00; Stop 03/15/20 at 20:01; Status DC Diphenhydramine HCl (Benadryl) 50 mg 1X ONCE IM Last administered on 03/15/20at 19:30; Start 03/15/20 at 20:00; Stop 03/15/20 at 20:01; Status DC Lorazepam (Ativan Inj) 1 mg 1X ONCE IVP Last administered on 03/15/20at 20:55; Start 03/15/20 at 20:00; Stop 03/15/20 at 20:01; Status DC Dextrose (Dextrose 50%-Water Syringe) 25 gm 1X ONCE IV ; Start 03/15/20 at 21:30; Stop 03/15/20 at 21:23; Status DC Dextrose 1,000 ml @ 75 mls/hr 1X ONCE IV Last administered on 03/15/20at 21:03; Start 03/15/20 at 21:30; Stop 03/15/20 at 21:23; Status DC Sodium Chloride 154 meq/Dextrose 1,038.5 ml @ 75 mls/hr [id number] IV Last administered on 03/16/20at 12:30; Start 03/15/20 at 22:00; Stop 03/16/20 at 21:59; Status DC Ceftriaxone Sodium (Rocephin) 2 gm 1X ONCE IVP Last administered on 03/15/20at 22:36; Start 03/15/20 at 22:00; Stop 03/15/20 at 22:01; Status DC Ondansetron HCl (Zofran) 4 mg PRN Q8HRS PRN IV NAUSEA/VOMITING 1ST CHOICE; Start 03/15/20 at 21:30; Stop 03/16/20 at 20:48; Status DC Lorazepam (Ativan Inj) 2 mg 1X ONCE IVP Last administered on 03/15/20at 23:37; Start 03/15/20 at 23:45; Stop 03/15/20 at 23:46; Status DC Lorazepam (Ativan Inj) 1 mg PRN Q4HRS PRN IVP ANXIETY / AGITATION Last administered on 03/18/20at 12:08; Start 03/16/20 at 03:15 Amlodipine Besylate (Norvasc) 10 mg DAILY PO Last administered on 03/18/20at 09:57; Start 03/16/20 at 09:00 Atorvastatin Calcium (Lipitor) 20 mg QHS PO Last administered on 03/17/20at 21:12; Start 03/16/20 at 21:00 Diclofenac Sodium (Voltaren) 1 rama PRN QID PRN TP PAIN; Start 03/16/20 at 08:00 Lidocaine (Lidoderm) 1 patch PRN DAILY PRN TP TOPICAL PAIN; Start 03/16/20 at 08:00; Stop 03/17/20 at 07:16; Status DC Montelukast Sodium (Singulair) 10 mg DAILY PO Last administered on 03/18/20at 09:58; Start 03/16/20 at 09:00 Polyethylene Glycol (miraLAX PACKET) 17 gm PRN DAILY PRN PO CONSTIPATION; Start 03/16/20 at 08:00 Non-Formulary Medication (Albuterol Sulfate (Ventolin Hfa Inhaler)) 2 puff PRN Q4-6HRS IH ; Start 03/16/20 at 08:00; Status UNV Duloxetine HCl (Cymbalta) 60 mg BID PO Last administered on 03/18/20at 09:58; Start 03/16/20 at 09:00 Insulin Glargine (Lantus Syringe) 10 unit QHS SQ Last administered on 03/17/20at 22:17; Start 03/16/20 at 21:00; Stop 03/18/20 at 13:25; Status DC Pantoprazole Sodium (Protonix) 40 mg DAILYAC PO Last administered on 03/18/20at 04:58; Start 03/16/20 at 08:30; Stop 03/18/20 at 14:14; Status DC Linagliptin (Tradjenta) 5 mg DAILY PO Last administered on 03/18/20at 09:57; Start 03/16/20 at 09:00 Insulin Human Lispro (HumaLOG) 0-7 UNITS TIDACHC SQ ; Start 03/16/20 at 11:30 Dextrose (Dextrose 50%-Water Syringe) 12.5 gm PRN Q15MIN PRN IV SEE COMMENTS; Start 03/16/20 at 08:00 Albuterol Sulfate (Ventolin Neb Soln) 2.5 mg PRN Q4HRS PRN NEB SHORTNESS OF BREATH; Start 03/16/20 at 08:30 Haloperidol Lactate (Haldol Inj) 5 mg PRN Q6HRS PRN IVP AGITATION Last administered on 03/16/20at 18:15; Start 03/16/20 at 10:45 Fentanyl Citrate (Fentanyl 2ml Vial) 25 mcg PRN Q3HRS PRN IVP MOD-SEVERE PAIN Last administered on 03/16/20at 12:33; Start 03/16/20 at 11:00; Stop 03/17/20 at 20:17; Status DC Diphenhydramine HCl (Benadryl) 25 mg PRN Q6HRS PRN IVP ITCHING Last administered on 03/16/20at 13:41; Start 03/16/20 at 13:45 Metoprolol Tartrate (Lopressor) 25 mg BID PO Last administered on 03/17/20at 18:14; Start 03/16/20 at 15:30 Ondansetron HCl (Zofran) 4 mg PRN Q4HRS PRN IV NAUSEA/VOMITING 1ST CHOICE; Start 03/16/20 at 21:00 Heparin Sodium (Porcine) (Heparin Sodium) 5,000 unit Q8HRS SQ Last administered on 03/18/20at 05:01; Start 03/16/20 at 22:00; Stop 03/18/20 at 14:34; Status DC Ceftriaxone Sodium (Rocephin) 1 gm Q24H IVP Last administered on 03/16/20at 21:35; Start 03/16/20 at 22:00; Stop 03/17/20 at 20:23; Status DC Acetaminophen (Tylenol Supp) 650 mg PRN Q6HRS PRN [place] MILD PAIN / TEMP > 100.3'F Last administered on 03/17/20at 20:34; Start 03/16/20 at 23:00 Sodium Chloride 154 meq/Dextrose 1,038.5 ml @ 75 mls/hr [id number] IV Last administered on 03/17/20at 04:45; Start 03/17/20 at 04:45; Stop 03/17/20 at 13:10; Status DC Dextrose/Sodium Chloride 1,000 ml @ 150 mls/hr Q6H40M IV Last administered on 03/18/20at 02:00; Start 03/17/20 at 17:30; Stop 03/18/20 at 13:23; Status DC Atenolol (Tenormin) 25 mg DAILY PO ; Start 03/17/20 at 14:00; Stop 03/17/20 at 14:42; Status DC Lorazepam (Ativan) 1 mg PRN BID PRN PO ANXIETY / AGITATION Last administered on 03/17/20at 21:11; Start 03/17/20 at 14:00 Tizanidine HCl (Zanaflex) 4 mg PRN Q6HRS PRN PO MUSCLE PAIN; Start 03/17/20 at 14:00 Diclofenac Sodium (Voltaren) 75 mg BID PO ; Start 03/17/20 at 21:00; Stop 03/17/20 at 20:22; Status DC Non-Formulary Medication (Ondansetron Hcl ) 8 mg PRN BID PRN PO NAUSEA/VOMITING; Start 03/17/20 at 14:00; Stop 03/18/20 at 16:12; Status DC Oxycodone HCl (Roxicodone) 15 mg PRN Q6HRS PRN PO MODERATE TO SEVERE PAIN Last administered on 03/19/20at 04:13; Start 03/17/20 at 14:15 Metoprolol Tartrate (Lopressor Vial) 5 mg 1X ONCE IVP Last administered on 03/17/20at 19:51; Start 03/17/20 at 19:30; Stop 03/17/20 at 19:31; Status DC Metoprolol Tartrate (Lopressor) 25 mg 1X ONCE PO Last administered on 03/17/20at 21:12; Start 03/17/20 at 21:00; Stop 03/17/20 at 21:01; Status DC Fentanyl Citrate (Fentanyl 2ml Vial) 50 mcg PRN Q3HRS PRN IVP MOD-SEVERE PAIN Last administered on 03/18/20at 09:54; Start 03/17/20 at 20:30 Ketorolac Tromethamine (Toradol 15mg Vial) 15 mg 1X ONCE IVP Last administered on 03/17/20at 20:34; Start 03/17/20 at 20:15; Stop 03/17/20 at 20:22; Status DC Piperacillin Sod/ Tazobactam Sod (Zosyn Per Pharmacy) 1 each PRN DAILY PRN MC SEE COMMENTS; Start 03/17/20 at 20:30; Stop 03/18/20 at 13:08; Status DC Piperacillin Sod/ Tazobactam Sod 3.375 gm/Sodium Chloride 50 ml @ 100 mls/hr Q6H IV Last administered on 03/18/20at 08:37; Start 03/17/20 at 21:00; Stop 03/18/20 at 12:23; Status DC Albuterol/ Ipratropium (Duoneb) 3 ml RTQID NEB Last administered on 03/19/20at 07:45; Start 03/18/20 at 12:00 Methylprednisolone Sodium Succinate (SOLU-Medrol 125MG VIAL) 125 mg 1X ONCE IV Last administered on 03/18/20at 12:26; Start 03/18/20 at 13:00; Stop 03/18/20 at 13:01; Status DC Budesonide (Pulmicort) 0.5 mg RTBID NEB Last administered on 03/19/20at 07:45; Start 03/18/20 at 20:00 Meropenem 500 mg/ Sodium Chloride 50 ml @ 100 mls/hr Q6HRS IV Last administered on 03/19/20at 05:47; Start 03/18/20 at 13:30 Metoprolol Tartrate (Lopressor Vial) 5 mg 1X ONCE IVP Last administered on 03/18/20at 13:49; Start 03/18/20 at 13:15; Stop 03/18/20 at 13:16; Status DC Insulin Glargine (Lantus Syringe) 5 unit QHS SQ Last administered on 03/18/20at 21:43; Start 03/18/20 at 21:00 Furosemide (Lasix) 20 mg 1X ONCE IVP Last administered on 03/18/20at 14:23; Start 03/18/20 at 14:30; Stop 03/18/20 at 14:31; Status DC Pantoprazole Sodium (PROTONIX VIAL for IV PUSH) 40 mg BIDAC IVP Last administered on 03/18/20at 17:36; Start 03/18/20 at 16:30 Magnesium Sulfate 50 ml @ 25 mls/hr 1X ONCE IV Last administered on 03/18/20at 17:36; Start 03/18/20 at 16:00; Stop 03/18/20 at 17:59; Status DC Metoprolol Tartrate (Lopressor Vial) 5 mg PRN Q6HRS PRN IVP HYPERTENSION; Start 03/18/20 at 15:45 Albumin Human 500 ml @ 125 mls/hr PRN DAILY PRN IV SEE COMMENTS Last administe red on 03/18/20at 16:07; Start 03/18/20 at 15:45 Norepinephrine Bitartrate 8 mg/ Dextrose 258 ml @ 17.705 mls/ hr CONT PRN IV P ER PROTOCOL; Start 03/18/20 at 15:45 Ondansetron HCl (Zofran Odt) 4 mg PRN BID PRN PO NAUSEA/VOMITING; Start 03/18/20 at 16:15; Stop 03/18/20 at 16:12; Status DC Ondansetron HCl (Zofran Odt) 8 mg PRN BID PRN PO NAUSEA/VOMITING; Start 03/18/20 at 16:15 Active Scripts Active Miralax (Polyethylene Glycol 3350) 17 Gm Powd.pack 1 Pkt PO PRN DAILY PRN Reported Etodolac 400 Mg Tablet 1 Tab PO BID Ondansetron Hcl 8 Mg Tablet 8 Mg PO BID PRN Oxycodone Hcl Immed.release (Oxycodone Hcl) 15 Mg Tablet 15 Mg PO PRN Q6HRS PRN Montelukast Sodium Tablet (Montelukast Sodium) 10 Mg Tablet 10 Mg PO DAILY Rosemarieaglchristina Fabian U-100 (Insulin Glargine,Hum.rec.anlog) 100 Unit/1 Ml Insuln.pen 50 Unit SQ HS Prilosec Otc (Omeprazole Magnesium) 20 Mg Tablet.dr 1 Tab PO DAILY Novolog Flexpen (Insulin Aspart) 100 Unit/1 Ml Insuln.pen 1 Unit SQ 15-20 UNITS WITH MEALS TO MAX OF 80 UNITS DAILY Atorvastatin Calcium 20 Mg Tablet 1 Tab PO DAILY Januvia (Sitagliptin Phosphate) 50 Mg Tablet 1 Tab PO DAILY Tizanidine Hcl 4 Mg Tablet 1 Tab PO Q6HRS PRN can have 1-2 tabs Lidoderm (Lidocaine) 700 Mg Adh..patch 1 Patch TP DAILY PRN Ativan (Lorazepam) 1 Mg Tablet 1 Mg PO BID PRN Amlodipine Besylate 10 Mg Tablet 10 Mg PO DAILY Atenolol 25 Mg Tablet 1 Tab PO DAILY Voltaren (Diclofenac Sodium) 100 Gm Gel..gram. 1 Gm TP QID PRN Ventolin Hfa Inhaler (Albuterol Sulfate) 18 Gm Hfa.aer.ad 2 Puff IH PRN Q4-6HRS Cymbalta (Duloxetine Hcl) 60 Mg Capsule. 60 Mg PO BID Vitals/I & O Vital Sign - Last 24 Hours 03/18/20 03/18/20 03/18/20 03/18/20 09:45 09:54 09:57 10:00 Temp 97.4 97.6 97.4 97.6 Pulse 80 80 83 Resp 20 20 B/P (MAP) 131/67 131/67 121/72 O2 Delivery Room Air 03/18/20 03/18/20 03/18/20 03/18/20 10:30 11:00 12:00 12:13 Temp 97.4 97.7 97.4 97.7 Pulse 88 72 Resp 18 30 B/P (MAP) 125/75 147/79 Pulse Ox 96 93 O2 Delivery Room Air Room Air 03/18/20 03/18/20 03/18/20 03/18/20 12:45 13:22 13:49 15:00 Temp 98.8 98.8 Pulse 137 139 130 Resp 36 18 B/P (MAP) 149/68 116/66 120/71 (87) Pulse Ox 95 O2 Delivery BiPAP/CPAP Nasal Cannula O2 Flow Rate 5.0 7/24/20 7/24/20 7/24/20 7/24/20 16:00 16:00 16:30 17:00 Pulse 114 104 104 Resp 18 18 18 B/P (MAP) 79/51 (60) 90/59 (69) 105/62 (76) Pulse Ox 95 95 95 O2 Delivery Nasal Cannula Nasal Cannula Nasal Cannula Nasal Cannula O2 Flow Rate 5.0 5.0 5.0 5.0 03/18/20 03/18/20 03/18/20 03/18/20 17:30 18:00 19:00 20:00 Temp 99.2 97.7 99.2 97.7 Pulse 98 98 97 93 Resp 18 28 B/P (MAP) 93/59 (70) 108/63 (78) 90/60 (70) 95/61 (72) Pulse Ox 95 95 100 100 O2 Delivery Nasal Cannula Nasal Cannula Nasal Cannula Room Air O2 Flow Rate 5.0 5.0 3.0 03/18/20 03/18/20 03/18/20 03/18/20 20:00 20:47 21:00 22:00 Pulse 98 92 92 Resp 24 B/P (MAP) 95/61 90/56 (67) 110/68 (82) Pulse Ox 99 99 O2 Delivery Room Air Room Air Room Air 03/18/20 03/19/20 03/19/20 03/19/20 23:00 00:00 00:00 01:00 Temp 98.2 98.2 Pulse 89 87 87 Resp B/P (MAP) 105/60 (75) 107/62 (77) 110/61 (77) Pulse Ox 99 100 99 O2 Delivery Room Air Room Air Room Air Room Air 03/19/20 03/19/20 03/19/20 03/19/20 02:00 03:00 04:00 04:00 Temp 97.8 97.8 Pulse 89 87 89 Resp 21 B/P (MAP) 114/67 (83) 125/65 (85) 110/67 (81) Pulse Ox 100 100 100 O2 Delivery Room Air Room Air Room Air Room Air 03/19/20 03/19/20 03/19/20 03/19/20 04:13 05:00 06:01 07:00 Temp 97.9 97.9 Pulse 88 88 88 Resp 24 B/P (MAP) 113/67 (82) 117/67 (84) 107/62 (77) Pulse Ox 100 100 100 O2 Delivery Room Air Room Air Room Air Room Air 03/19/20 03/19/20 03/19/20 03/19/20 07:46 08:00 08:00 08:07 Temp 97.9 97.9 Pulse 91 90 Resp 21 B/P (MAP) 102/63 (76) 102/63 Pulse Ox 98 100 O2 Delivery Room Air Room Air Room Air 03/19/20 03/19/20 03/19/20 08:20 09:00 09:09 Temp 97.7 97.9 97.7 97.9 Pulse 92 97 96 Resp 20 21 B/P (MAP) 102/45 123/62 (82) 123/62 Pulse Ox 100 O2 Delivery Room Air Intake and Output 03/18/20 03/18/20 03/19/20 15:00 23:00 07:00 Intake Total 875 ml 550 ml 50 ml Output Total 900 ml 1325 ml 965 ml Balance -25 ml -775 ml -915 ml Justicifation of Admission Dx: Justifications for Admission: Justification of Admission Dx: Yes DAKSHA MCCULLOUGH MD Mar 19, 2020 09:36
[2020-03-19] MEDS: DULoxetine HCL 30 MG CAPSULE.DR PO SCH ×2 (09:55→20:30)
[2020-03-19] MEDS: LINAGLIPTIN 5 MG TABLET PO SCH (09:55)
[2020-03-19] MEDS: PANTOPRAZOLE IV PUSH 40 MG VIAL. IVP SCH ×2 (09:55→16:28)
[2020-03-19] MEDS: MONTELUKAST SODIUM 10 MG TABLET. PO SCH (09:55)
--- NOTE | 2020-03-19 10:17 | PDOC ---
PULMONARY PROGRESS NOTES Subjective transfer to ICU last night GI bleed mental status improved no wheezing Vitals Vital Signs Date Time Temp Pulse Resp B/P (MAP) Pulse Ox O2 Delivery O2 Flow Rate FiO2 03/19/20 09:09 97.9 96 21 123/62 97.9 03/19/20 09:00 100 Room Air 03/18/20 19:00 3.0 General: Alert, No acute distress Lungs: Clear Cardiovascular: S1 Abdomen: Soft, Other (obese) Neuro Exam: Alert Extremities: Other (1=edema) Labs Laboratory Tests Test 03/17/20 11:00 03/17/20 11:53 03/17/20 17:06 03/17/20 19:52 White Blood Count 8.1 x10^3/uL (4.0-11.0) Red Blood Count 2.74 x10^6/uL (4.30-5.70) Hemoglobin 8.1 g/dL (13.0-17.5) Hematocrit 23.7 % (39.0-53.0) Mean Corpuscular Volume 87 fL (79-100) Mean Corpuscular Hemoglobin 30 pg (25-35) Mean Corpuscular Hemoglobin Concent 34 g/dL (31-37) Red Cell Distribution Width 17.5 % (11.5-14.5) Platelet Count 177 x10^3/uL (140-400) Neutrophils (%) (Auto) 81 % (31-73) Lymphocytes (%) (Auto) 11 % (24-48) Monocytes (%) (Auto) 6 % (0-9) Eosinophils (%) (Auto) 1 % (0-3) Basophils (%) (Auto) 1 % (0-3) Neutrophils # (Auto) 6.6 x10^3/uL (1.8-7.7) Lymphocytes # (Auto) 0.9 x10^3/uL (1.0-4.8) Monocytes # (Auto) 0.5 x10^3/uL (0.0-1.1) Eosinophils # (Auto) 0.1 x10^3/uL (0.0-0.7) Basophils # (Auto) 0.1 x10^3/uL (0.0-0.2) Sodium Level 134 mmol/L (136-145) Potassium Level 3.9 mmol/L (3.5-5.1) Chloride Level 100 mmol/L (98-107) Carbon Dioxide Level 24 mmol/L (21-32) Anion Gap 10 (6-14) Blood Urea Nitrogen 30 mg/dL (8-26) Creatinine 1.9 mg/dL (0.7-1.3) Estimated GFR (Cockcroft-Gault) 36.3 BUN/Creatinine Ratio 16 (6-20) Glucose Level 88 mg/dL (70-99) Calcium Level 7.4 mg/dL (8.5-10.1) Total Bilirubin 0.6 mg/dL (0.2-1.0) Aspartate Amino Transf (AST/SGOT) 63 U/L (15-37) Alanine Aminotransferase (ALT/SGPT) 52 U/L (16-63) Alkaline Phosphatase 216 U/L (46-116) Total Protein 5.5 g/dL (6.4-8.2) Albumin 1.4 g/dL (3.4-5.0) Albumin/Globulin Ratio 0.3 (1.0-1.7) Glucose (Fingerstick) 88 mg/dL (70-99) 102 mg/dL (70-99) 97 mg/dL (70-99) Test 03/18/20 05:10 03/18/20 08:00 03/18/20 11:37 03/18/20 14:20 White Blood Count 8.4 x10^3/uL (4.0-11.0) 9.6 x10^3/uL (4.0-11.0) Red Blood Count 2.32 x10^6/uL (4.30-5.70) 3.29 x10^6/uL (4.30-5.70) Hemoglobin 6.8 g/dL (13.0-17.5) 9.5 g/dL (13.0-17.5) Hematocrit 19.9 % (39.0-53.0) 28.4 % (39.0-53.0) Mean Corpuscular Volume 86 fL (79-100) 87 fL (79-100) Mean Corpuscular Hemoglobin 29 pg (25-35) 29 pg (25-35) Mean Corpuscular Hemoglobin Concent 34 g/dL (31-37) 34 g/dL (31-37) Red Cell Distribution Width 17.7 % (11.5-14.5) 17.3 % (11.5-14.5) Platelet Count 108 x10^3/uL (140-400) 104 x10^3/uL (140-400) Sodium Level 131 mmol/L (136-145) 129 mmol/L (136-145) Potassium Level 4.1 mmol/L (3.5-5.1) 4.3 mmol/L (3.5-5.1) Chloride Level 99 mmol/L (98-107) 97 mmol/L (98-107) Carbon Dioxide Level 22 mmol/L (21-32) 15 mmol/L (21-32) Anion Gap 10 (6-14) 17 (6-14) Blood Urea Nitrogen 29 mg/dL (8-26) 30 mg/dL (8-26) Creatinine 2.0 mg/dL (0.7-1.3) 2.1 mg/dL (0.7-1.3) Estimated GFR (Cockcroft-Gault) 34.3 32.4 Glucose Level 193 mg/dL (70-99) 87 mg/dL (70-99) Calcium Level 6.4 mg/dL (8.5-10.1) 7.1 mg/dL (8.5-10.1) Total Bilirubin 0.6 mg/dL (0.2-1.0) 1.3 mg/dL (0.2-1.0) Direct Bilirubin 0.4 mg/dL (0.0-0.2) 0.8 mg/dL (0.0-0.2) Aspartate Amino Transf (AST/SGOT) 44 U/L (15-37) 92 U/L (15-37) Alanine Aminotransferase (ALT/SGPT) 41 U/L (16-63) 54 U/L (16-63) Alkaline Phosphatase 182 U/L (46-116) 287 U/L (46-116) Total Protein 4.6 g/dL (6.4-8.2) 5.0 g/dL (6.4-8.2) Albumin 1.2 g/dL (3.4-5.0) 1.4 g/dL (3.4-5.0) Tumor Marker Alpha Fetoprotein 0.9 ng/mL (0.0-8.3) Glucose (Fingerstick) 210 mg/dL (70-99) 132 mg/dL (70-99) Prothrombin Time 18.2 SEC (11.7-14.0) Prothromb Time International Ratio 1.5 (0.8-1.1) Lactic Acid Level 7.2 mmol/L (0.4-2.0) Magnesium Level 1.5 mg/dL (1.8-2.4) Test 03/18/20 15:30 03/18/20 17:53 03/18/20 18:00 03/18/20 21:17 O2 Saturation 96 % (92-99) Arterial Blood pH 7.47 (7.35-7.45) Arterial Blood pCO2 at Patient Temp 17 mmHg (35-46) Arterial Blood pO2 at Patient Temp 91 mmHg (65-108) Arterial Blood HCO3 12 mmol/L (21-28) Arterial Blood Base Excess -10 mmol/L (-3-3) FiO2 5l nc Glucose (Fingerstick) 78 mg/dL (70-99) 125 mg/dL (70-99) Lactic Acid Level 5.9 mmol/L (0.4-2.0) Test 03/19/20 05:25 White Blood Count 9.8 x10^3/uL (4.0-11.0) Red Blood Count 2.35 x10^6/uL (4.30-5.70) Hemoglobin 6.9 g/dL (13.0-17.5) Hematocrit 20.1 % (39.0-53.0) Mean Corpuscular Volume 85 fL (79-100) Mean Corpuscular Hemoglobin 29 pg (25-35) Mean Corpuscular Hemoglobin Concent 34 g/dL (31-37) Red Cell Distribution Width 17.3 % (11.5-14.5) Platelet Count 55 x10^3/uL (140-400) Neutrophils (%) (Auto) 88 % (31-73) Lymphocytes (%) (Auto) 8 % (24-48) Monocytes (%) (Auto) 3 % (0-9) Eosinophils (%) (Auto) 0 % (0-3) Basophils (%) (Auto) 0 % (0-3) Neutrophils # (Auto) 8.6 x10^3/uL (1.8-7.7) Lymphocytes # (Auto) 0.8 x10^3/uL (1.0-4.8) Monocytes # (Auto) 0.3 x10^3/uL (0.0-1.1) Eosinophils # (Auto) 0.0 x10^3/uL (0.0-0.7) Basophils # (Auto) 0.0 x10^3/uL (0.0-0.2) Fibrinogen 376 mg/dL (200-440) D-Dimer (Jackelin) > 20.00 ug/mlFEU Sodium Level 131 mmol/L (136-145) Potassium Level 4.0 mmol/L (3.5-5.1) Chloride Level 97 mmol/L (98-107) Carbon Dioxide Level 23 mmol/L (21-32) Anion Gap 11 (6-14) Blood Urea Nitrogen 30 mg/dL (8-26) Creatinine 1.9 mg/dL (0.7-1.3) Estimated GFR (Cockcroft-Gault) 36.3 BUN/Creatinine Ratio 16 (6-20) Glucose Level 202 mg/dL (70-99) Calcium Level 7.0 mg/dL (8.5-10.1) Ferritin 2072 ng/mL (26-388) Total Bilirubin 1.0 mg/dL (0.2-1.0) Aspartate Amino Transf (AST/SGOT) 42 U/L (15-37) Alanine Aminotransferase (ALT/SGPT) 36 U/L (16-63) Alkaline Phosphatase 169 U/L (46-116) Total Protein 4.9 g/dL (6.4-8.2) Albumin 1.6 g/dL (3.4-5.0) Albumin/Globulin Ratio 0.5 (1.0-1.7) Laboratory Tests Test 03/18/20 11:37 03/18/20 14:20 03/18/20 15:30 03/18/20 17:53 Glucose (Fingerstick) 132 mg/dL (70-99) 78 mg/dL (70-99) White Blood Count 9.6 x10^3/uL (4.0-11.0) Red Blood Count 3.29 x10^6/uL (4.30-5.70) Hemoglobin 9.5 g/dL (13.0-17.5) Hematocrit 28.4 % (39.0-53.0) Mean Corpuscular Volume 87 fL (79-100) Mean Corpuscular Hemoglobin 29 pg (25-35) Mean Corpuscular Hemoglobin Concent 34 g/dL (31-37) Red Cell Distribution Width 17.3 % (11.5-14.5) Platelet Count 104 x10^3/uL (140-400) Prothrombin Time 18.2 SEC (11.7-14.0) Prothromb Time International Ratio 1.5 (0.8-1.1) Sodium Level 129 mmol/L (136-145) Potassium Level 4.3 mmol/L (3.5-5.1) Chloride Level 97 mmol/L (98-107) Carbon Dioxide Level 15 mmol/L (21-32) Anion Gap 17 (6-14) Blood Urea Nitrogen 30 mg/dL (8-26) Creatinine 2.1 mg/dL (0.7-1.3) Estimated GFR (Cockcroft-Gault) 32.4 Glucose Level 87 mg/dL (70-99) Lactic Acid Level 7.2 mmol/L (0.4-2.0) Calcium Level 7.1 mg/dL (8.5-10.1) Magnesium Level 1.5 mg/dL (1.8-2.4) Total Bilirubin 1.3 mg/dL (0.2-1.0) Direct Bilirubin 0.8 mg/dL (0.0-0.2) Aspartate Amino Transf (AST/SGOT) 92 U/L (15-37) Alanine Aminotransferase (ALT/SGPT) 54 U/L (16-63) Alkaline Phosphatase 287 U/L (46-116) Total Protein 5.0 g/dL (6.4-8.2) Albumin 1.4 g/dL (3.4-5.0) O2 Saturation 96 % (92-99) Arterial Blood pH 7.47 (7.35-7.45) Arterial Blood pCO2 at Patient Temp 17 mmHg (35-46) Arterial Blood pO2 at Patient Temp 91 mmHg (65-108) Arterial Blood HCO3 12 mmol/L (21-28) Arterial Blood Base Excess -10 mmol/L (-3-3) FiO2 5l nc Test 03/18/20 18:00 03/18/20 21:17 03/19/20 05:25 Lactic Acid Level 5.9 mmol/L (0.4-2.0) Glucose (Fingerstick) 125 mg/dL (70-99) White Blood Count 9.8 x10^3/uL (4.0-11.0) Red Blood Count 2.35 x10^6/uL (4.30-5.70) Hemoglobin 6.9 g/dL (13.0-17.5) Hematocrit 20.1 % (39.0-53.0) Mean Corpuscular Volume 85 fL (79-100) Mean Corpuscular Hemoglobin 29 pg (25-35) Mean Corpuscular Hemoglobin Concent 34 g/dL (31-37) Red Cell Distribution Width 17.3 % (11.5-14.5) Platelet Count 55 x10^3/uL (140-400) Neutrophils (%) (Auto) 88 % (31-73) Lymphocytes (%) (Auto) 8 % (24-48) Monocytes (%) (Auto) 3 % (0-9) Eosinophils (%) (Auto) 0 % (0-3) Basophils (%) (Auto) 0 % (0-3) Neutrophils # (Auto) 8.6 x10^3/uL (1.8-7.7) Lymphocytes # (Auto) 0.8 x10^3/uL (1.0-4.8) Monocytes # (Auto) 0.3 x10^3/uL (0.0-1.1) Eosinophils # (Auto) 0.0 x10^3/uL (0.0-0.7) Basophils # (Auto) 0.0 x10^3/uL (0.0-0.2) Fibrinogen 376 mg/dL (200-440) D-Dimer (Jackelin) > 20.00 ug/mlFEU Sodium Level 131 mmol/L (136-145) Potassium Level 4.0 mmol/L (3.5-5.1) Chloride Level 97 mmol/L (98-107) Carbon Dioxide Level 23 mmol/L (21-32) Anion Gap 11 (6-14) Blood Urea Nitrogen 30 mg/dL (8-26) Creatinine 1.9 mg/dL (0.7-1.3) Estimated GFR (Cockcroft-Gault) 36.3 BUN/Creatinine Ratio 16 (6-20) Glucose Level 202 mg/dL (70-99) Calcium Level 7.0 mg/dL (8.5-10.1) Ferritin 2072 ng/mL (26-388) Total Bilirubin 1.0 mg/dL (0.2-1.0) Aspartate Amino Transf (AST/SGOT) 42 U/L (15-37) Alanine Aminotransferase (ALT/SGPT) 36 U/L (16-63) Alkaline Phosphatase 169 U/L (46-116) Total Protein 4.9 g/dL (6.4-8.2) Albumin 1.6 g/dL (3.4-5.0) Albumin/Globulin Ratio 0.5 (1.0-1.7) Medications Active Scripts Medications Dose Route/Sig Max Daily Dose Days Date Category Dose Instructions Etodolac 400 Mg Tablet 1 Tab PO BID 03/16/20 Reported Ondansetron Hcl 8 Mg Tablet 8 Mg PO BID PRN 03/16/20 Reported Oxycodone Hcl Immed.release (Oxycodone Hcl) 15 Mg Tablet 15 Mg PO PRN Q6HRS PRN 03/16/20 Reported Miralax (Polyethylene Glycol 3350) 17 Gm Powd.pack 1 Pkt PO PRN DAILY PRN 04/17/18 Rx Montelukast Sodium Tablet (Montelukast Sodium) 10 Mg Tablet 10 Mg PO DAILY 04/14/18 Reported Basaglar Kwikpen U-100 (Insulin Glargine,Hum.rec.anlog) 100 Unit/1 Ml Insuln.pen 50 Unit SQ HS 04/14/18 Reported Prilosec Otc (Omeprazole Magnesium) 20 Mg Tablet.dr 1 Tab PO DAILY 02/08/16 Reported Novolog Flexpen (Insulin Aspart) 100 Unit/1 Ml Insuln.pen 1 Unit SQ 11/17/15 Reported 15-20 UNITS WITH MEALS TO MAX OF 80 UNITS DAILY Atorvastatin Calcium 20 Mg Tablet 1 Tab PO DAILY 11/17/15 Reported Januvia (Sitagliptin Phosphate) 50 Mg Tablet 1 Tab PO DAILY 11/17/15 Reported Tizanidine Hcl 4 Mg Tablet 1 Tab PO Q6HRS PRN 11/17/15 Reported can have 1-2 tabs Lidoderm (Lidocaine) 700 Mg Adh..patch 1 Patch TP DAILY PRN 11/17/15 Reported Ativan (Lorazepam) 1 Mg Tablet 1 Mg PO BID PRN 11/17/15 Reported Amlodipine Besylate 10 Mg Tablet 10 Mg PO DAILY 11/17/15 Reported Atenolol 25 Mg Tablet 1 Tab PO DAILY 11/17/15 Reported Voltaren (Diclofenac Sodium) 100 Gm Gel..gram. 1 Gm TP QID PRN 11/17/15 Reported Ventolin Hfa Inhaler (Albuterol Sulfate) 18 Gm Hfa.aer.ad 2 Puff IH PRN Q4-6HRS 11/17/15 Reported Cymbalta (Duloxetine Hcl) 60 Mg Capsule.dr 60 Mg PO BID 11/17/15 Reported Impression . 1. Acute respiratory failure with audible upper airway wheezing. Resolved. Etiology not so obvious. Could be related to reactive airway disease. Other less likely possibility would be a transfusion related acute reaction. The patient has no known asthma. less likely tracheal stenosis, Possibility of vocal cord dysfunction secondary to anxiety would also be a consideration. 2. Anemia, status post transfusion.on going GI bleed 3. Hypoglycemic encephalopathy, present on admission , improved 4. Chronic kidney disease. 5. Abnormal ct chest with basal atelectasis/ vs pneumonia 6. Liver mass 7. Fever, COVID P 8. Abnormal D-Dimer , could be related to Liver cancer Plan . 1. pulmonary samuel better 2. Nasal canula, off BIPAP 3. We will continue DuoNebs. 4. Pulmicort nebulizer. 5. Tx PRN, GI rec 6. Continue antibiotics. 7. will need liver Bx 8. We will monitor for any further fever. The patient has been tested COVID negative x 3 recently. Discussed with RN and Dr. Duval. 9. dopplers lower extremity Critical care time 30 minutes. RAHEEM AGMA MD Mar 19, 2020 10:17
--- NOTE | 2020-03-19 10:53 | PDOC ---
PROGRESS NOTES Subjective Subjective Less confused today. Had fever earlier today and hence was tested for COVID, results pending Objective Objective Vital Signs Date Time Temp Pulse Resp B/P (MAP) Pulse Ox O2 Delivery O2 Flow Rate FiO2 03/19/20 10:00 92 20 115/66 (82) 100 Room Air 03/19/20 09:09 97.9 97.9 03/18/20 19:00 3.0 Intake and Output 03/19/20 07:00 Intake Total 1475 ml Output Total 3190 ml Balance -1715 ml Intake Oral 175 ml IV Total 600 ml Blood Product IV Normal Saline Flush 700 ml Output Urine Total 3190 ml # Bowel Movements 3 Physical Exam Abdomen: Normal bowel sounds, Soft, No tenderness Heart: Regular rate, No murmurs Extremities: No cyanosis, No edema, Normal pulses General: Alert, Cooperative, No acute distress HEENT: Atraumatic Lungs: Clear to auscultation MUSCULOSKELETAL: No swelling Psych/Mental Status: Mood NL Skin: No rashes Assessment Assessment 1. Acute on chronic diastolic CHF/pleural effusion: multifactorial induced by anemia, hypoalbuminemia and renal failure. EF and WM nml. Better compensated today. Patient is being transfused for anemia. 2. Metabolic encephalopathy; still has some disorientation 3. Sepsis/fever, treat per ID team. 4. Acute respiratory failure, improved. COVID test pending. Pulmonary team following. 5. Mild transaminitis with hepatic mass: GI following 6. S/P lap jonelle with bile leak: S/P ERCP with biliary stent placement at [facility] 7. COLBY on CKD with hyponatremia: nephrology following 8. Normocytic anemia with GI bleed (melena/hematochezia): Hgb 6.8 and just received 1U transfusion 9. Recently noted PUD: prepyloric ulcers via EGD 03/10/2020 10. Hx of left nephrectomy r/t renal CA 11. HTN: controlled 12. DM2 with hypoglycemia 13. HLP 13. Mild troponin elevation: 0.085, no EKG chnages no cardiac symptoms. Type 2 demand mediated with multiple culprits above. 14. Reactive sinus tachycardia Plan Plan of Care Problems Medical Problems: (1) Acute kidney injury Status: Acute (2) Encephalopathy Status: Acute (3) Hypoglycemia Status: Acute (4) Hyponatremia Status: Acute (5) Seizure Status: Acute Comment Review of Relevant I have reviewed the following items clarisse (where applicable) has been applied. Labs Laboratory Tests Test 03/18/20 11:37 03/18/20 14:20 03/18/20 15:30 03/18/20 17:53 Glucose (Fingerstick) 132 mg/dL (70-99) 78 mg/dL (70-99) White Blood Count 9.6 x10^3/uL (4.0-11.0) Red Blood Count 3.29 x10^6/uL (4.30-5.70) Hemoglobin 9.5 g/dL (13.0-17.5) Hematocrit 28.4 % (39.0-53.0) Mean Corpuscular Volume 87 fL (79-100) Mean Corpuscular Hemoglobin 29 pg (25-35) Mean Corpuscular Hemoglobin Concent 34 g/dL (31-37) Red Cell Distribution Width 17.3 % (11.5-14.5) Platelet Count 104 x10^3/uL (140-400) Prothrombin Time 18.2 SEC (11.7-14.0) Prothromb Time International Ratio 1.5 (0.8-1.1) Sodium Level 129 mmol/L (136-145) Potassium Level 4.3 mmol/L (3.5-5.1) Chloride Level 97 mmol/L (98-107) Carbon Dioxide Level 15 mmol/L (21-32) Anion Gap 17 (6-14) Blood Urea Nitrogen 30 mg/dL (8-26) Creatinine 2.1 mg/dL (0.7-1.3) Estimated GFR (Cockcroft-Gault) 32.4 Glucose Level 87 mg/dL (70-99) Lactic Acid Level 7.2 mmol/L (0.4-2.0) Calcium Level 7.1 mg/dL (8.5-10.1) Magnesium Level 1.5 mg/dL (1.8-2.4) Total Bilirubin 1.3 mg/dL (0.2-1.0) Direct Bilirubin 0.8 mg/dL (0.0-0.2) Aspartate Amino Transf (AST/SGOT) 92 U/L (15-37) Alanine Aminotransferase (ALT/SGPT) 54 U/L (16-63) Alkaline Phosphatase 287 U/L (46-116) Total Protein 5.0 g/dL (6.4-8.2) Albumin 1.4 g/dL (3.4-5.0) O2 Saturation 96 % (92-99) Arterial Blood pH 7.47 (7.35-7.45) Arterial Blood pCO2 at Patient Temp 17 mmHg (35-46) Arterial Blood pO2 at Patient Temp 91 mmHg (65-108) Arterial Blood HCO3 12 mmol/L (21-28) Arterial Blood Base Excess -10 mmol/L (-3-3) FiO2 5l nc Test 03/18/20 18:00 03/18/20 21:17 03/19/20 05:25 Lactic Acid Level 5.9 mmol/L (0.4-2.0) Glucose (Fingerstick) 125 mg/dL (70-99) White Blood Count 9.8 x10^3/uL (4.0-11.0) Red Blood Count 2.35 x10^6/uL (4.30-5.70) Hemoglobin 6.9 g/dL (13.0-17.5) Hematocrit 20.1 % (39.0-53.0) Mean Corpuscular Volume 85 fL (79-100) Mean Corpuscular Hemoglobin 29 pg (25-35) Mean Corpuscular Hemoglobin Concent 34 g/dL (31-37) Red Cell Distribution Width 17.3 % (11.5-14.5) Platelet Count 55 x10^3/uL (140-400) Neutrophils (%) (Auto) 88 % (31-73) Lymphocytes (%) (Auto) 8 % (24-48) Monocytes (%) (Auto) 3 % (0-9) Eosinophils (%) (Auto) 0 % (0-3) Basophils (%) (Auto) 0 % (0-3) Neutrophils # (Auto) 8.6 x10^3/uL (1.8-7.7) Lymphocytes # (Auto) 0.8 x10^3/uL (1.0-4.8) Monocytes # (Auto) 0.3 x10^3/uL (0.0-1.1) Eosinophils # (Auto) 0.0 x10^3/uL (0.0-0.7) Basophils # (Auto) 0.0 x10^3/uL (0.0-0.2) Fibrinogen 376 mg/dL (200-440) D-Dimer (Jackelin) > 20.00 ug/mlFEU Sodium Level 131 mmol/L (136-145) Potassium Level 4.0 mmol/L (3.5-5.1) Chloride Level 97 mmol/L (98-107) Carbon Dioxide Level 23 mmol/L (21-32) Anion Gap 11 (6-14) Blood Urea Nitrogen 30 mg/dL (8-26) Creatinine 1.9 mg/dL (0.7-1.3) Estimated GFR (Cockcroft-Gault) 36.3 BUN/Creatinine Ratio 16 (6-20) Glucose Level 202 mg/dL (70-99) Calcium Level 7.0 mg/dL (8.5-10.1) Ferritin 2072 ng/mL (26-388) Total Bilirubin 1.0 mg/dL (0.2-1.0) Aspartate Amino Transf (AST/SGOT) 42 U/L (15-37) Alanine Aminotransferase (ALT/SGPT) 36 U/L (16-63) Alkaline Phosphatase 169 U/L (46-116) Total Protein 4.9 g/dL (6.4-8.2) Albumin 1.6 g/dL (3.4-5.0) Albumin/Globulin Ratio 0.5 (1.0-1.7) Microbiology 03/16/20 Blood Culture - Preliminary, Resulted NO GROWTH AFTER 3 DAYS Medications Current Medications Albumin Human 500 ml @ 125 mls/hr PRN DAILY PRN IV SEE COMMENTS Last administered on 03/18/20at 16:07; Start 03/18/20 at 15:45 Albuterol/ Ipratropium (Duoneb) 3 ml RTQID NEB Last administered on 03/19/20at 07:45; Start 03/18/20 at 12:00 Budesonide (Pulmicort) 0.5 mg RTBID NEB Last administered on 03/19/20at 07:45; Start 03/18/20 at 20:00 Furosemide (Lasix) 20 mg 1X ONCE IVP Last administered on 03/18/20at 14:23; Start 03/18/20 at 14:30; Stop 03/18/20 at 14:31; Status DC Insulin Glargine (Lantus Syringe) 5 unit QHS SQ Last administered on 03/18/20at 21:43; Start 03/18/20 at 21:00 Magnesium Sulfate 50 ml @ 25 mls/hr 1X ONCE IV Last administered on 03/18/20at 17:36; Start 03/18/20 at 16:00; Stop 03/18/20 at 17:59; Status DC Meropenem 500 mg/ Sodium Chloride 50 ml @ 100 mls/hr Q6HRS IV Last administered on 03/19/20at 05:47; Start 03/18/20 at 13:30 Methylprednisolone Sodium Succinate (SOLU-Medrol 125MG VIAL) 125 mg 1X ONCE IV Last administered on 03/18/20at 12:26; Start 03/18/20 at 13:00; Stop 03/18/20 at 13:01; Status DC Metoprolol Tartrate (Lopressor Vial) 5 mg 1X ONCE IVP Last administered on 03/18/20at 13:49; Start 03/18/20 at 13:15; Stop 03/18/20 at 13:16; Status DC Metoprolol Tartrate (Lopressor Vial) 5 mg PRN Q6HRS PRN IVP HYPERTENSION; Start 03/18/20 at 15:45 Norepinephrine Bitartrate 8 mg/ Dextrose 258 ml @ 17.705 mls/ hr CONT PRN IV PER PROTOCOL; Start 03/18/20 at 15:45 Ondansetron HCl (Zofran Odt) 4 mg PRN BID PRN PO NAUSEA/VOMITING; Start 03/18/20 at 16:15; Stop 03/18/20 at 16:12; Status DC Ondansetron HCl (Zofran Odt) 8 mg PRN BID PRN PO NAUSEA/VOMITING; Start 03/18/20 at 16:15 Pantoprazole Sodium (PROTONIX VIAL for IV PUSH) 40 mg BIDAC IVP Last administered on 03/19/20at 09:55; Start 03/18/20 at 16:30 Vitals/I & O Vital Sign - Last 24 Hours 03/18/20 03/18/20 03/18/20 03/18/20 11:00 12:00 12:13 12:45 Temp 97.4 97.7 98.8 97.4 97.7 98.8 Pulse 88 72 137 Resp 18 30 36 B/P (MAP) 125/75 147/79 149/68 Pulse Ox 93 O2 Delivery Room Air 03/18/20 03/18/20 03/18/20 03/18/20 13:22 13:49 15:00 16:00 Pulse 139 130 114 Resp 18 B/P (MAP) 116/66 120/71 (87) 79/51 (60) Pulse Ox 95 95 O2 Delivery BiPAP/CPAP Nasal Cannula Nasal Cannula O2 Flow Rate 5.0 5.0 03/18/20 03/18/20 03/18/20 03/18/20 16:00 16:30 17:00 17:30 Pulse 104 104 98 Resp 18 B/P (MAP) 90/59 (69) 105/62 (76) 93/59 (70) Pulse Ox 95 95 95 O2 Delivery Nasal Cannula Nasal Cannula Nasal Cannula Nasal Cannula O2 Flow Rate 5.0 5.0 5.0 5.0 03/18/20 03/18/20 03/18/20 03/18/20 18:00 19:00 20:00 20:00 Temp 99.2 97.7 99.2 97.7 Pulse 98 97 93 Resp 28 B/P (MAP) 108/63 (78) 90/60 (70) 95/61 (72) Pulse Ox 95 100 100 O2 Delivery Nasal Cannula Nasal Cannula Room Air Room Air O2 Flow Rate 5.0 3.0 03/18/20 03/18/20 03/18/20 03/18/20 20:47 21:00 22:00 23:00 Pulse 98 92 92 89 Resp 27 B/P (MAP) 95/61 90/56 (67) 110/68 (82) 105/60 (75) Pulse Ox 99 99 99 O2 Delivery Room Air Room Air Room Air 03/19/20 03/19/20 03/19/20 03/19/20 00:00 00:00 01:00 02:00 Temp 98.2 98.2 Pulse 87 87 89 Resp 26 B/P (MAP) 107/62 (77) 110/61 (77) 114/67 (83) Pulse Ox 100 99 100 O2 Delivery Room Air Room Air Room Air Room Air 03/19/20 03/19/20 03/19/20 03/19/20 03:00 04:00 04:00 04:13 Temp 97.8 97.8 Pulse 87 89 Resp 25 21 B/P (MAP) 125/65 (85) 110/67 (81) Pulse Ox 100 100 O2 Delivery Room Air Room Air Room Air Room Air 03/19/20 03/19/20 03/19/20 03/19/20 05:00 06:01 07:00 07:46 Temp 97.9 97.9 Pulse 88 88 88 Resp B/P (MAP) 113/67 (82) 117/67 (84) 107/62 (77) Pulse Ox 100 100 100 98 O2 Delivery Room Air Room Air Room Air Room Air 03/19/20 03/19/20 03/19/20 03/19/20 08:00 08:00 08:07 08:20 Temp 97.9 97.7 97.9 97.7 Pulse 91 90 92 Resp B/P (MAP) 102/63 (76) 102/63 102/45 Pulse Ox 100 O2 Delivery Room Air Room Air 03/19/20 03/19/20 03/19/20 09:00 09:09 10:00 Temp 97.9 97.9 Pulse 97 96 92 Resp B/P (MAP) 123/62 (82) 123/62 115/66 (82) Pulse Ox 100 100 O2 Delivery Room Air Room Air Intake and Output 03/18/20 03/18/20 03/19/20 15:00 23:00 07:00 Intake Total 875 ml 550 ml 50 ml Output Total 900 ml 1325 ml 965 ml Balance -25 ml -775 ml -915 ml VIRAL REY MD Mar 19, 2020 10:53
--- NOTE | 2020-03-19 12:24 | PDOC ---
SUBJECTIVE ROS Transferred to ICU 09/27 to change in clinical status- AMS, GI bleed Currently better, Mentation improved, sitting up in chair CoViD pending OBJECTIVE Vital Signs Vital Signs Date Time Temp Pulse Resp B/P (MAP) Pulse Ox O2 Delivery O2 Flow Rate FiO2 03/19/20 11:00 97.9 91 21 101/63 (76) 100 Room Air 97.9 03/18/20 19:00 3.0 I & 0 Intake and Output 03/19/20 07:00 Intake Total 1475 ml Output Total 3190 ml Balance -1715 ml Intake Oral 175 ml IV Total 600 ml Blood Product IV Normal Saline Flush 700 ml Output Urine Total 3190 ml # Bowel Movements 3 PHYSICAL EXAM Physical Exam GENERAL: sitting up in chair, NAD HEENT: . Oral mucosa moist NECK: Supple. LUNGS: Decreased breath sounds at bases HEART: S1, S2 regular. ABDOMEN: Mildly distended. Bowel sounds present, nontender, no rebound, no guarding. EXTREMITIES: No edema, NEUROLOGIC: Alert, awake, somewhat confused. PSYCHIATRIC: Cooperative. Hali tobin DIAGNOSIS/ASSESSMENT Assessment & Plan COLBY - Renal function improved and at baseline E-Lytes stable,Good UOP, BMP QD CKD STAGE 3 with Cr 1.6-2.0 at baseline Severe Sepsis present on admission from gram-negative bacteremia. Anemia, ac drop in Hbg , status post PRBC. Hyponatremia. Encephalopathy, CT head negative History of renal cancer.S/P Nephrectomy Abnormal LFTs ,Liver mass CoViD pending COMMENT/RELEVANT DATA Meds Current Medications Medications (Trade) Dose Ordered Sig/Tory Start Time Stop Time Status Last Admin Dose Admin Acetaminophen (Tylenol Supp) 650 mg PRN Q6HRS PRN 03/16/20 23:00 03/17/20 20:34 650 MG Albumin Human 500 ml @ 125 mls/hr PRN DAILY PRN 03/18/20 15:45 03/18/20 16:07 125 MLS/HR Albuterol Sulfate (Ventolin Neb Soln) 2.5 mg PRN Q4HRS PRN 03/16/20 08:30 Albuterol/ Ipratropium (Duoneb) 3 ml RTQID 03/18/20 12:00 03/19/20 07:45 3 ML Amlodipine Besylate (Norvasc) 10 mg DAILY 7/22/20 09:00 03/18/20 09:57 10 MG Atenolol (Tenormin) 25 mg DAILY 03/17/20 14:00 03/17/20 14:42 DC Atorvastatin Calcium (Lipitor) 20 mg QHS 03/16/20 21:00 03/17/20 21:12 20 MG Budesonide (Pulmicort) 0.5 mg RTBID 03/18/20 20:00 03/19/20 07:45 0.5 MG Ceftriaxone Sodium (Rocephin) 1 gm Q24H 03/16/20 22:00 03/17/20 20:23 DC 03/16/20 21:35 1 GM Dextrose (Dextrose 50%-Water Syringe) 12.5 gm PRN Q15MIN PRN 03/16/20 08:00 Dextrose/Sodium Chloride 1,000 ml @ 150 mls/hr Q6H40M 03/17/20 17:30 03/18/20 13:23 DC 03/18/20 02:00 150 MLS/HR Diclofenac Sodium (Voltaren) 75 mg BID 03/17/20 21:00 03/17/20 20:22 DC Diphenhydramine HCl (Benadryl) 25 mg PRN Q6HRS PRN 03/16/20 13:45 03/16/20 13:41 25 MG Duloxetine HCl (Cymbalta) 60 mg BID 03/16/20 09:00 03/19/20 09:55 60 MG Fentanyl Citrate (Fentanyl 2ml Vial) 50 mcg PRN Q3HRS PRN 03/17/20 20:30 03/18/20 09:54 50 MCG Furosemide (Lasix) 20 mg 1X ONCE 03/18/20 14:30 03/18/20 14:31 DC 03/18/20 14:23 20 MG Haloperidol Lactate (Haldol Inj) 5 mg PRN Q6HRS PRN 03/16/20 10:45 03/16/20 18:15 5 MG Heparin Sodium (Porcine) (Heparin Sodium) 5,000 unit Q8HRS 03/16/20 22:00 03/18/20 14:34 DC 03/18/20 05:01 5,000 UNIT Insulin Glargine (Lantus Syringe) 5 unit QHS 03/18/20 21:00 7/24/20 21:43 5 UNIT Insulin Human Lispro (HumaLOG) 0-7 UNITS TIDACHC 03/16/20 11:30 Ketorolac Tromethamine (Toradol 15mg Vial) 15 mg 1X ONCE 03/17/20 20:15 03/17/20 20:22 DC 03/17/20 20:34 15 MG Lidocaine (Lidoderm) 1 patch PRN DAILY PRN 03/16/20 08:00 03/17/20 07:16 DC Linagliptin (Tradjenta) 5 mg DAILY 03/16/20 09:00 03/19/20 09:55 5 MG Lorazepam (Ativan Inj) 1 mg PRN Q4HRS PRN 03/16/20 03:15 03/18/20 12:08 1 MG Lorazepam (Ativan) 1 mg PRN BID PRN 03/17/20 14:00 03/17/20 21:11 1 MG Magnesium Sulfate 50 ml @ 25 mls/hr 1X ONCE 03/18/20 16:00 03/18/20 17:59 DC 03/18/20 17:36 25 MLS/HR Meropenem 500 mg/ Sodium Chloride 50 ml @ 100 mls/hr Q6HRS 03/18/20 13:30 03/19/20 05:47 100 MLS/HR Methylprednisolone Sodium Succinate (SOLU-Medrol 125MG VIAL) 125 mg 1X ONCE 03/18/20 13:00 03/18/20 13:01 DC 03/18/20 12:26 125 MG Metoprolol Tartrate (Lopressor Vial) 5 mg PRN Q6HRS PRN 03/18/20 15:45 Metoprolol Tartrate (Lopressor) 25 mg 1X ONCE 03/17/20 21:00 03/17/20 21:01 DC 03/17/20 21:12 25 MG Montelukast Sodium (Singulair) 10 mg DAILY 03/16/20 09:00 03/19/20 09:55 10 MG Non-Formulary Medication (Albuterol Sulfate (Ventolin Hfa Inhaler)) 2 puff PRN Q4-6HRS 03/16/20 08:00 UNV Non-Formulary Medication (Ondansetron Hcl ) 8 mg PRN BID PRN 03/17/20 14:00 03/18/20 16:12 DC Norepinephrine Bitartrate 8 mg/ Dextrose 258 ml @ 17.705 mls/ hr CONT PRN 03/18/20 15:45 Ondansetron HCl (Zofran Odt) 8 mg PRN BID PRN 03/18/20 16:15 Ondansetron HCl (Zofran) 4 mg PRN Q4HRS PRN 03/16/20 21:00 Oxycodone HCl (Roxicodone) 15 mg PRN Q6HRS PRN 03/17/20 14:15 03/19/20 04:13 15 MG Pantoprazole Sodium (PROTONIX VIAL for IV PUSH) 40 mg BIDAC 03/18/20 16:30 03/19/20 09:55 40 MG Pantoprazole Sodium (Protonix) 40 mg DAILYAC 03/16/20 08:30 03/18/20 14:14 DC 03/18/20 04:58 40 MG Piperacillin Sod/ Tazobactam Sod (Zosyn Per Pharmacy) 1 each PRN DAILY PRN 03/17/20 20:30 03/18/20 13:08 DC Piperacillin Sod/ Tazobactam Sod 3.375 gm/Sodium Chloride 50 ml @ 100 mls/hr Q6H 03/17/20 21:00 03/18/20 12:23 DC 03/18/20 08:37 100 MLS/HR Polyethylene Glycol (miraLAX PACKET) 17 gm PRN DAILY PRN 03/16/20 08:00 Sodium Chloride 154 meq/Dextrose 1,038.5 ml @ 75 mls/hr [id number] 03/17/20 04:45 03/17/20 13:10 DC 03/17/20 04:45 75 MLS/HR Tizanidine HCl (Zanaflex) 4 mg PRN Q6HRS PRN 03/17/20 14:00 Lab Laboratory Tests Test 03/18/20 14:20 03/18/20 15:30 03/18/20 17:53 03/18/20 18:00 White Blood Count 9.6 x10^3/uL (4.0-11.0) Red Blood Count 3.29 x10^6/uL (4.30-5.70) Hemoglobin 9.5 g/dL (13.0-17.5) Hematocrit 28.4 % (39.0-53.0) Mean Corpuscular Volume 87 fL (79-100) Mean Corpuscular Hemoglobin 29 pg (25-35) Mean Corpuscular Hemoglobin Concent 34 g/dL (31-37) Red Cell Distribution Width 17.3 % (11.5-14.5) Platelet Count 104 x10^3/uL (140-400) Prothrombin Time 18.2 SEC (11.7-14.0) Prothromb Time International Ratio 1.5 (0.8-1.1) Sodium Level 129 mmol/L (136-145) Potassium Level 4.3 mmol/L (3.5-5.1) Chloride Level 97 mmol/L (98-107) Carbon Dioxide Level 15 mmol/L (21-32) Anion Gap 17 (6-14) Blood Urea Nitrogen 30 mg/dL (8-26) Creatinine 2.1 mg/dL (0.7-1.3) Estimated GFR (Cockcroft-Gault) 32.4 Glucose Level 87 mg/dL (70-99) Lactic Acid Level 7.2 mmol/L (0.4-2.0) 5.9 mmol/L (0.4-2.0) Calcium Level 7.1 mg/dL (8.5-10.1) Magnesium Level 1.5 mg/dL (1.8-2.4) Total Bilirubin 1.3 mg/dL (0.2-1.0) Direct Bilirubin 0.8 mg/dL (0.0-0.2) Aspartate Amino Transf (AST/SGOT) 92 U/L (15-37) Alanine Aminotransferase (ALT/SGPT) 54 U/L (16-63) Alkaline Phosphatase 287 U/L (46-116) Total Protein 5.0 g/dL (6.4-8.2) Albumin 1.4 g/dL (3.4-5.0) O2 Saturation 96 % (92-99) Arterial Blood pH 7.47 (7.35-7.45) Arterial Blood pCO2 at Patient Temp 17 mmHg (35-46) Arterial Blood pO2 at Patient Temp 91 mmHg (65-108) Arterial Blood HCO3 12 mmol/L (21-28) Arterial Blood Base Excess -10 mmol/L (-3-3) FiO2 5l nc Glucose (Fingerstick) 78 mg/dL (70-99) Test 03/18/20 21:17 03/19/20 05:25 Glucose (Fingerstick) 125 mg/dL (70-99) White Blood Count 9.8 x10^3/uL (4.0-11.0) Red Blood Count 2.35 x10^6/uL (4.30-5.70) Hemoglobin 6.9 g/dL (13.0-17.5) Hematocrit 20.1 % (39.0-53.0) Mean Corpuscular Volume 85 fL (79-100) Mean Corpuscular Hemoglobin 29 pg (25-35) Mean Corpuscular Hemoglobin Concent 34 g/dL (31-37) Red Cell Distribution Width 17.3 % (11.5-14.5) Platelet Count 55 x10^3/uL (140-400) Neutrophils (%) (Auto) 88 % (31-73) Lymphocytes (%) (Auto) 8 % (24-48) Monocytes (%) (Auto) 3 % (0-9) Eosinophils (%) (Auto) 0 % (0-3) Basophils (%) (Auto) 0 % (0-3) Neutrophils # (Auto) 8.6 x10^3/uL (1.8-7.7) Lymphocytes # (Auto) 0.8 x10^3/uL (1.0-4.8) Monocytes # (Auto) 0.3 x10^3/uL (0.0-1.1) Eosinophils # (Auto) 0.0 x10^3/uL (0.0-0.7) Basophils # (Auto) 0.0 x10^3/uL (0.0-0.2) Fibrinogen 376 mg/dL (200-440) D-Dimer (Jackelin) > 20.00 ug/mlFEU Sodium Level 131 mmol/L (136-145) Potassium Level 4.0 mmol/L (3.5-5.1) Chloride Level 97 mmol/L (98-107) Carbon Dioxide Level 23 mmol/L (21-32) Anion Gap 11 (6-14) Blood Urea Nitrogen 30 mg/dL (8-26) Creatinine 1.9 mg/dL (0.7-1.3) Estimated GFR (Cockcroft-Gault) 36.3 BUN/Creatinine Ratio 16 (6-20) Glucose Level 202 mg/dL (70-99) Calcium Level 7.0 mg/dL (8.5-10.1) Ferritin 2072 ng/mL (26-388) Total Bilirubin 1.0 mg/dL (0.2-1.0) Aspartate Amino Transf (AST/SGOT) 42 U/L (15-37) Alanine Aminotransferase (ALT/SGPT) 36 U/L (16-63) Alkaline Phosphatase 169 U/L (46-116) Total Protein 4.9 g/dL (6.4-8.2) Albumin 1.6 g/dL (3.4-5.0) Albumin/Globulin Ratio 0.5 (1.0-1.7) Results All relevant outside records, renal labs, imaging studies, telemetry/EKG's were reviewed. Justicifation of Admission Dx: Justifications for Admission: Justification of Admission Dx: Yes HOWARD AGUILAR MD Mar 19, 2020 12:24
--- NOTE | 2020-03-19 15:18 | PDOC ---
GI PROGRESS NOTES Date Date/Time DATE: 03/19/20 TIME: 15:14 Subjective Subjective Asleep in the ICU. Transferred back to the ICU with confusion yesterday. Objective Vitals Vital Signs Date Time Temp Pulse Resp B/P (MAP) Pulse Ox O2 Delivery O2 Flow Rate FiO2 03/19/20 14:00 85 15 95/57 (70) 98 Room Air 03/19/20 13:00 90 21 110/62 (78) 99 Room Air 03/19/20 12:00 Room Air 03/19/20 12:00 90 21 101/66 (78) 97 Room Air 03/19/20 11:00 97.9 91 21 101/63 (76) 100 Room Air 97.9 03/19/20 10:00 92 20 115/66 (82) 100 Room Air 03/19/20 09:09 97.9 96 21 123/62 97.9 03/19/20 09:00 97 20 123/62 (82) 100 Room Air 03/19/20 09:00 91 101/67 03/19/20 09:00 91 101/67 03/19/20 08:20 97.7 92 20 102/45 97.7 03/19/20 08:07 97.9 90 21 102/63 97.9 03/19/20 08:00 Room Air 03/19/20 08:00 91 21 102/63 (76) 100 Room Air 03/19/20 07:46 98 Room Air 03/19/20 07:00 97.9 88 24 107/62 (77) 100 Room Air 97.9 03/19/20 06:01 88 19 117/67 (84) 100 Room Air 03/19/20 05:00 88 23 113/67 (82) 100 Room Air 03/19/20 04:13 Room Air 03/19/20 04:00 Room Air 03/19/20 04:00 97.8 89 21 110/67 (81) 100 Room Air 97.8 03/19/20 03:00 87 25 125/65 (85) 100 Room Air 03/19/20 02:00 89 26 114/67 (83) 100 Room Air 03/19/20 01:00 87 26 110/61 (77) 99 Room Air 03/19/20 00:00 98.2 87 26 107/62 (77) 100 Room Air 98.2 03/19/20 00:00 Room Air 03/18/20 23:00 89 27 105/60 (75) 99 Room Air 03/18/20 22:00 92 24 110/68 (82) 99 Room Air 03/18/20 21:00 92 30 90/56 (67) 99 Room Air 03/18/20 20:47 98 95/61 03/18/20 20:00 Room Air 03/18/20 20:00 97.7 93 28 95/61 (72) 100 Room Air 97.7 03/18/20 19:00 97 30 90/60 (70) 100 Nasal Cannula 3.0 03/18/20 18:00 99.2 98 18 108/63 (78) 95 Nasal Cannula 5.0 99.2 03/18/20 17:30 98 18 93/59 (70) 95 Nasal Cannula 5.0 03/18/20 17:00 104 18 105/62 (76) 95 Nasal Cannula 5.0 03/18/20 16:30 104 18 90/59 (69) 95 Nasal Cannula 5.0 03/18/20 16:00 Nasal Cannula 5.0 03/18/20 16:00 114 18 79/51 (60) 95 Nasal Cannula 5.0 Labs Labs Laboratory Tests Test 03/18/20 15:30 03/18/20 17:53 03/18/20 18:00 03/18/20 21:17 O2 Saturation 96 % (92-99) Arterial Blood pH 7.47 (7.35-7.45) Arterial Blood pCO2 at Patient Temp 17 mmHg (35-46) Arterial Blood pO2 at Patient Temp 91 mmHg (65-108) Arterial Blood HCO3 12 mmol/L (21-28) Arterial Blood Base Excess -10 mmol/L (-3-3) FiO2 5l nc Glucose (Fingerstick) 78 mg/dL (70-99) 125 mg/dL (70-99) Lactic Acid Level 5.9 mmol/L (0.4-2.0) Test 03/19/20 05:25 03/19/20 12:46 White Blood Count 9.8 x10^3/uL (4.0-11.0) Red Blood Count 2.35 x10^6/uL (4.30-5.70) Hemoglobin 6.9 g/dL (13.0-17.5) Hematocrit 20.1 % (39.0-53.0) Mean Corpuscular Volume 85 fL (79-100) Mean Corpuscular Hemoglobin 29 pg (25-35) Mean Corpuscular Hemoglobin Concent 34 g/dL (31-37) Red Cell Distribution Width 17.3 % (11.5-14.5) Platelet Count 55 x10^3/uL (140-400) Neutrophils (%) (Auto) 88 % (31-73) Lymphocytes (%) (Auto) 8 % (24-48) Monocytes (%) (Auto) 3 % (0-9) Eosinophils (%) (Auto) 0 % (0-3) Basophils (%) (Auto) 0 % (0-3) Neutrophils # (Auto) 8.6 x10^3/uL (1.8-7.7) Lymphocytes # (Auto) 0.8 x10^3/uL (1.0-4.8) Monocytes # (Auto) 0.3 x10^3/uL (0.0-1.1) Eosinophils # (Auto) 0.0 x10^3/uL (0.0-0.7) Basophils # (Auto) 0.0 x10^3/uL (0.0-0.2) Fibrinogen 376 mg/dL (200-440) D-Dimer (Jackelin) > 20.00 ug/mlFEU Sodium Level 131 mmol/L (136-145) Potassium Level 4.0 mmol/L (3.5-5.1) Chloride Level 97 mmol/L (98-107) Carbon Dioxide Level 23 mmol/L (21-32) Anion Gap 11 (6-14) Blood Urea Nitrogen 30 mg/dL (8-26) Creatinine 1.9 mg/dL (0.7-1.3) Estimated GFR (Cockcroft-Gault) 36.3 BUN/Creatinine Ratio 16 (6-20) Glucose Level 202 mg/dL (70-99) Calcium Level 7.0 mg/dL (8.5-10.1) Ferritin 2072 ng/mL (26-388) Total Bilirubin 1.0 mg/dL (0.2-1.0) Aspartate Amino Transf (AST/SGOT) 42 U/L (15-37) Alanine Aminotransferase (ALT/SGPT) 36 U/L (16-63) Alkaline Phosphatase 169 U/L (46-116) Total Protein 4.9 g/dL (6.4-8.2) Albumin 1.6 g/dL (3.4-5.0) Albumin/Globulin Ratio 0.5 (1.0-1.7) Glucose (Fingerstick) 227 mg/dL (70-99) Physical Exam Physical Exam Is asleep Chest clear with few rhonchi Abdomen soft, bowel sounds present, no obvious mass. Assessment Assessment Sepsis. Appears to be E. coli related and may be biliary from his previous stent although it is unclear since we are missing some of the hospital records and details of history. Liver mass. Limited imaging with a noncontrasted study due to his renal disease. Likely necrotic or abscess. Could be metastatic disease although we do not have a primary at this point. Again records and history are limited Bleeding. He did not have any bleeding up until recently. Some rectal bleeding is noted in the CT suddenly appears to suggest a splenic flexure lesion. These are noncontrasted images so there is some limitation. We do not have a recent colonoscopy history to rule out a lesion in this area. Is also curious that he has a hepatic mass that could be a necrotic tumor or could be an abscess. The colon could be the source for either of these processes. Anemia. At least in part related to GI bleeding. Fortunately has clinically improved and hemoglobin although low has stabilized. Will need to continue to monitor but he is not a good candidate for colonoscopy at this point due to his numerous comorbidities. If he has recurrent bleeding it may be appropriate to consider an imaging study just bleeding scan to first localize the area Justicifation of Admission Dx: Justifications for Admission: Justification of Admission Dx: Yes ROSE MARIE NELSON MD Mar 19, 2020 15:18
[2020-03-19] MEDS: ATORVASTATIN CALCIUM 20 MG TABLET PO SCH (20:31)
[2020-03-19] MEDS: INSULIN GLARGINE SYRINGE. SQ SCH (20:32)
[2020-03-20] VITALS (25 sets, daily range): BP systolic 97–130; BP diastolic 56–78
[2020-03-20] MEDS: MEROPENEM 500 MG in IV NORMAL SALINE 50ML 50 ML IV SCH ×2 (00:06→05:38)
[2020-03-20 06:56] LABS: BASO % 0 % (0-3); EOS % 0 % (0-3); HEMATOCRIT 21.7 % (39.0-53.0); HEMOGLOBIN 7.4 g/dL (13.0-17.5); LYMPH # 0.6 x10^3/uL (1.0-4.8); LYMPH % 5 % (24-48); MEAN CORPUSCULAR HEMOGLOBIN 29 pg (25-35); MEAN CORPUSCULAR HGB CONC 34 g/dL (31-37); MEAN CORPUSCULAR VOLUME 84 fL (79-100); MONO # 0.4 x10^3/uL (0.0-1.1); MONO % 4 % (0-9); NEUT # 11.5 x10^3/uL (1.8-7.7); NEUT % 91 % (31-73); PLATELET COUNT 63 x10^3/uL (140-400); RED BLOOD COUNT 2.58 x10^6/uL (4.30-5.70); RED CELL DISTRIBUTION WIDTH 17.4 % (11.5-14.5); WHITE BLOOD COUNT 12.6 x10^3/uL (4.0-11.0)
--- NOTE | 2020-03-20 07:01 | PDOC ---
Infectious Disease Note Subjective: Subjective Patient more alert this a.m. Continues to have bloody stool Has some abdominal discomfort left lower quadrant No fevers Not on pressors Status post PRBC yesterday Vital Signs: Vital Signs Vital Signs Date Time Temp Pulse Resp B/P (MAP) Pulse Ox O2 Delivery O2 Flow Rate FiO2 03/20/20 06:08 78 18 106/68 (81) 98 Room Air 03/20/20 04:00 97.7 97.7 Physical Exam: PHYSICAL EXAM GENERAL: Alert, awake, looks better, and upright in chair HEENT: Normocephalic, atraumatic, anicteric. Oral mucosa dry. No thrush. NECK: Supple. Right IJ present LUNGS: Decreased breath sounds at bases. No wheezing. No accessory muscle use. HEART: S1, S2 regular. No murmurs. ABDOMEN: Mildly distended. Bowel sounds present, nontender, no rebound, no guarding. Hernandez in place EXTREMITIES: No edema, no cyanosis. NEUROLOGIC: Alert, awake, oriented x3 nonfocal PSYCHIATRIC: Cooperative. Medications: Inpatient Meds: Current Medications Medications (Trade) Dose Ordered Sig/Tory Start Time Stop Time Status Last Admin Dose Admin Acetaminophen (Tylenol Supp) 650 mg PRN Q6HRS PRN 03/16/20 23:00 03/17/20 20:34 650 MG Albumin Human 500 ml @ 125 mls/hr PRN DAILY PRN 03/18/20 15:45 03/18/20 16:07 125 MLS/HR Albuterol Sulfate (Ventolin Neb Soln) 2.5 mg PRN Q4HRS PRN 03/16/20 08:30 Albuterol/ Ipratropium (Duoneb) 3 ml RTQID 03/18/20 12:00 03/19/20 20:00 3 ML Amlodipine Besylate (Norvasc) 10 mg DAILY 03/16/20 09:00 03/18/20 09:57 10 MG Atenolol (Tenormin) 25 mg DAILY 03/17/20 14:00 03/17/20 14:42 DC Atorvastatin Calcium (Lipitor) 20 mg QHS 03/16/20 21:00 03/19/20 20:31 20 MG Budesonide (Pulmicort) 0.5 mg RTBID 03/18/20 20:00 03/19/20 20:00 0.5 MG Ceftriaxone Sodium (Rocephin) 1 gm Q24H 03/16/20 22:00 03/17/20 20:23 DC 03/16/20 21:35 1 GM Dextrose (Dextrose 50%-Water Syringe) 12.5 gm PRN Q15MIN PRN 03/16/20 08:00 Dextrose/Sodium Chloride 1,000 ml @ 150 mls/hr Q6H40M 03/17/20 17:30 03/18/20 13:23 DC 03/18/20 02:00 150 MLS/HR Diclofenac Sodium (Voltaren) 75 mg BID 03/17/20 21:00 03/17/20 20:22 DC Diphenhydramine HCl (Benadryl) 25 mg PRN Q6HRS PRN 03/16/20 13:45 03/16/20 13:41 25 MG Duloxetine HCl (Cymbalta) 60 mg BID 03/16/20 09:00 03/19/20 20:30 60 MG Fentanyl Citrate (Fentanyl 2ml Vial) 50 mcg PRN Q3HRS PRN 03/17/20 20:30 03/18/20 09:54 50 MCG Furosemide (Lasix) 20 mg 1X ONCE 03/18/20 14:30 03/18/20 14:31 DC 03/18/20 14:23 20 MG Haloperidol Lactate (Haldol Inj) 5 mg PRN Q6HRS PRN 03/16/20 10:45 03/16/20 18:15 5 MG Heparin Sodium (Porcine) (Heparin Sodium) 5,000 unit Q8HRS 03/16/20 22:00 03/18/20 14:34 DC 03/18/20 05:01 5,000 UNIT Insulin Glargine (Lantus Syringe) 5 unit QHS 03/18/20 21:00 03/19/20 20:32 5 UNIT Insulin Human Lispro (HumaLOG) 0-7 UNITS TIDACHC 03/16/20 11:30 03/19/20 20:40 2 UNITS Ketorolac Tromethamine (Toradol 15mg Vial) 15 mg 1X ONCE 03/17/20 20:15 03/17/20 20:22 DC 03/17/20 20:34 15 MG Lidocaine (Lidoderm) 1 patch PRN DAILY PRN 03/16/20 08:00 03/17/20 07:16 DC Linagliptin (Tradjenta) 5 mg DAILY 03/16/20 09:00 03/19/20 09:55 5 MG Lorazepam (Ativan Inj) 1 mg PRN Q4HRS PRN 03/16/20 03:15 03/18/20 12:08 1 MG Lorazepam (Ativan) 1 mg PRN BID PRN 03/17/20 14:00 03/17/20 21:11 1 MG Magnesium Sulfate 50 ml @ 25 mls/hr 1X ONCE 03/18/20 16:00 03/18/20 17:59 DC 03/18/20 17:36 25 MLS/HR Meropenem 500 mg/ Sodium Chloride 50 ml @ 100 mls/hr Q6HRS 03/18/20 13:30 03/20/20 05:38 100 MLS/HR Methylprednisolone Sodium Succinate (SOLU-Medrol 125MG VIAL) 125 mg 1X ONCE 03/18/20 13:00 03/18/20 13:01 DC 03/18/20 12:26 125 MG Metoprolol Tartrate (Lopressor Vial) 5 mg PRN Q6HRS PRN 03/18/20 15:45 Metoprolol Tartrate (Lopressor) 25 mg 1X ONCE 03/17/20 21:00 03/17/20 21:01 DC 03/17/20 21:12 25 MG Montelukast Sodium (Singulair) 10 mg DAILY 03/16/20 09:00 03/19/20 09:55 10 MG Non-Formulary Medication (Albuterol Sulfate (Ventolin Hfa Inhaler)) 2 puff PRN Q4-6HRS 03/16/20 08:00 UNV Non-Formulary Medication (Ondansetron Hcl ) 8 mg PRN BID PRN 03/17/20 14:00 03/18/20 16:12 DC Norepinephrine Bitartrate 8 mg/ Dextrose 258 ml @ 17.705 mls/ hr CONT PRN 03/18/20 15:45 Ondansetron HCl (Zofran Odt) 8 mg PRN BID PRN 03/18/20 16:15 Ondansetron HCl (Zofran) 4 mg PRN Q4HRS PRN 03/16/20 21:00 Oxycodone HCl (Roxicodone) 15 mg PRN Q6HRS PRN 03/17/20 14:15 03/19/20 20:30 15 MG Pantoprazole Sodium (PROTONIX VIAL for IV PUSH) 40 mg BIDAC 03/18/20 16:30 03/19/20 16:28 40 MG Pantoprazole Sodium (Protonix) 40 mg DAILYAC 03/16/20 08:30 03/18/20 14:14 DC 03/18/20 04:58 40 MG Piperacillin Sod/ Tazobactam Sod (Zosyn Per Pharmacy) 1 each PRN DAILY PRN 03/17/20 20:30 03/18/20 13:08 DC Piperacillin Sod/ Tazobactam Sod 3.375 gm/Sodium Chloride 50 ml @ 100 mls/hr Q6H 03/17/20 21:00 03/18/20 12:23 DC 03/18/20 08:37 100 MLS/HR Polyethylene Glycol (miraLAX PACKET) 17 gm PRN DAILY PRN 03/16/20 08:00 Sodium Chloride 154 meq/Dextrose 1,038.5 ml @ 75 mls/hr [id number] 03/17/20 04:45 03/17/20 13:10 DC 03/17/20 04:45 75 MLS/HR Tizanidine HCl (Zanaflex) 4 mg PRN Q6HRS PRN 03/17/20 14:00 Labs: Lab Laboratory Tests Test 03/19/20 12:46 03/19/20 15:25 03/19/20 16:32 03/19/20 17:39 Glucose (Fingerstick) 227 mg/dL (70-99) 281 mg/dL (70-99) Lactic Acid Level 1.3 mmol/L (0.4-2.0) Hemoglobin 8.0 g/dL (13.0-17.5) Test 03/19/20 20:36 03/20/20 06:35 Glucose (Fingerstick) 242 mg/dL (70-99) White Blood Count 12.6 x10^3/uL (4.0-11.0) Red Blood Count 2.58 x10^6/uL (4.30-5.70) Hemoglobin 7.4 g/dL (13.0-17.5) Hematocrit 21.7 % (39.0-53.0) Mean Corpuscular Volume 84 fL (79-100) Mean Corpuscular Hemoglobin 29 pg (25-35) Mean Corpuscular Hemoglobin Concent 34 g/dL (31-37) Red Cell Distribution Width 17.4 % (11.5-14.5) Platelet Count 63 x10^3/uL (140-400) Neutrophils (%) (Auto) 91 % (31-73) Lymphocytes (%) (Auto) 5 % (24-48) Monocytes (%) (Auto) 4 % (0-9) Eosinophils (%) (Auto) 0 % (0-3) Basophils (%) (Auto) 0 % (0-3) Neutrophils # (Auto) 11.5 x10^3/uL (1.8-7.7) Lymphocytes # (Auto) 0.6 x10^3/uL (1.0-4.8) Monocytes # (Auto) 0.4 x10^3/uL (0.0-1.1) Eosinophils # (Auto) 0.0 x10^3/uL (0.0-0.7) Basophils # (Auto) 0.0 x10^3/uL (0.0-0.2) Micro RUN DATE: 03/18/20 [facility] *LIVE* PAGE 1 RUN TIME: 1139 Specimen Inquiry PATIENT: LASHAY MARQUEZ ACCT: [id number] LOC: [address] [place] [address] U: [id number] AGE/SX: 59/M ROOM: 538 RE03/15/[address]: DAKSHA MCCULLOUGH MD : 1960 BED: 1 DIS: STATUS: ADM John TLOC: SPEC #: [id number] ABRAHAM: 03/15/20 STATUS: RES REQ #: [id number] RECD: 03/15/[address]: CHARY KOEHLER MD SOURCE: BLOOD ENTR: 03/17/[address]: MARILOU LOPEZ MD [facility]: ORDERED: BLD CULT - LC Procedure Result BLOOD CULTURE LC Preliminary Preliminary GROWTH OF GRAM NEGATIVE RODS on 03/18/20 at 1133 FINAL ID= [ESCHERICHIA COLI] ESCHERICHIA COLI Unless otherwise specified, Testing Performed by: [address] [address] For Inquires, the Physician may contact the Microbiology department at [phone] Objective: Assessment: 1. Severe Sepsis present on admission from gram-negative bacteremia. 2. E Coli bacteremia, 3. Leukocytosis and lactic acidosis. 4. Anemia, status post PRBC. 5. Hyponatremia. 6. Encephalopathy, likely metabolic, CT head negative 7. History of renal cancer.S/P Nephrectomy 8. Abnormal LFTs ,Liver mass 9. History of ALLERGIES TO CLINDAMYCIN AND LEVAQUIN. 10. Recent placement of metallic stent 11. Thrombocytopenia ? Sepsis vs other 12 COVID-19 pending Plan: Plan of Care DC meropenem Ceftriaxone Follow up repeat blood cultures. Negative so far F/U AM labs. Follow-up pending COVID-19 Maintain aspiration precaution. Local wound care as directed Discussed with nursing staff NELIA JAMES MD Mar 20, 2020 07:01
[2020-03-20 07:13] LABS: ALBUMIN 1.4 g/dL (3.4-5.0); ALBUMIN/GLOBULIN RATIO 0.4 (1.0-1.7); CALCIUM 7.4 mg/dL (8.5-10.1); CREATININE 1.5 mg/dL (0.7-1.3); GFR 47.7; POTASSIUM 3.9 mmol/L (3.5-5.1); TOTAL BILIRUBIN 0.6 mg/dL (0.2-1.0); TOTAL PROTEIN 4.7 g/dL (6.4-8.2)
--- NOTE | 2020-03-20 07:52 | PDOC ---
PROGRESS NOTES Chief Complaint Chief Complaint impression GI BLEED, TRANSFUSED Hyponatremia Liver mass History of renal cell carcinoma Altered mental status Recent placement of percutaneous biliary drain Severe sepsis Gram negative bacteremia BLOOD CULTURE Final GRAM NEGATIVE RODS SEEN IN 1 OF 2 TOTAL BOTTLES, REPRESENTING 2 SETS COLLECTED (EACH SET ONLY HAS ONE BOTTLE). acute METABOLIC ENCEPHALOPATHY COPD - will cont home nebs Large irregular hepatic mass. This is likely a necrotic metastasis. An abscess is not excluded. 6 is unchanged. Normocytic anemia with GI bleed (melena/hematochezia): Hgb 6.8 and just received 1U transfusion PUD: prepyloric ulcers via EGD 03/10/2020 Biliary stent and mild pneumobilia seen previously. Altered mental status CKD STAGE 3 with Cr 1.6-2.0 // baseline Recent placement of percutaneous biliary drain [facility] The left colon is collapsed. A stricture at the splenic flexure is possible. Apparently issues w/ confusion since cholecystectomy at on 12/25/19. Per nurse d/w , "drain" placed ~3 weeks after surgery, then "stent" placed ~1 week ago. ?bile leak Reported h/o hyponatremia per labs at . Liver biopsy 2009 from LEFT lobe of liver during w/u of renal cancer; cavernous hemangioma. 03/20 HGB 7.4 H/H Q 8 HRS 03/[address] head neg , gi, gen surgery consult transfused, gi consult, gen surgery consult, CE[facility] critically ill/// old records requested CONT IV ROCEPHIN 03/20 33 MIN CC TIME History of Present Illness History of Present Illness Mr Corona is a 59yo M w/ PMHx chronic Bronchitis, RCC s/p left nephrectomy 2009, Diabetes-Type II, High Cholesterol, Hypertension, 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 She notes he has had a progressive decline over the last month or so. Patient is e ncephalopathic and unable to answer questions. Patient given glucagon prior to arrival and blood sugar improved from 55-83. notes issues w/ confusion since cholecystectomy at on 12/25/19. notes an IR drain was placed after a readmission for worsening and remained in place for 3 weeks and was removed at the end of January, then he returned for common bile duct stent placement last week. She notes that she was told that he had a "small spot" on his liver at [facility] and that his sodium was "better" at 129 last week. She also notes he has lost 46# in the past 2 months and she is not aware of any diagnosis for him. Patient is not even speaking, he is moaning and writhing in bed. Has been tested 3x for covid 19 and negative with last check over a week ago. CXR with pulmonary vasculare congestion and CT head negative for acute process. Labs significant for WBC 17.2, Hb 8.2, platelets 244, INR 1.3, Na 123, K 4.7, BUN 49, Cr 3.4, Albumin 1.7, Glucose 97, Mg 1.7, AST 84, ALT 66, Alk phos 228, Bili 1.2. BNP 03123 Admitted to ICU for further care. Overnight transferred from ICU febrile to 104.8 F overnight. Was tachycardic, improved with IV fluids and home metoprolol dosing. Less confused. Hb 6.8. VS stabilized after initiation of zosyn. Addendum: Called at 1130 for worsening respiratory rate and blood in stool. CXR with poor inspiratory effort and mild fluid overload. Pulmonology consulted, BIPAP ordered for comfort with respiratory rate of 42/min CC time 74 minutes Vitals Vitals Vital Signs Date Time Temp Pulse Resp B/P (MAP) Pulse Ox O2 Delivery O2 Flow Rate FiO2 03/20/20 07:13 100 Room Air 03/20/20 07:00 84 16 116/71 (86) 03/20/20 04:00 97.7 97.7 Physical Exam Physical Exam GENERAL: Alert, awake, lethargic male, somewhat confused. HEENT: Normocephalic, atraumatic, anicteric. Oral mucosa dry. No thrush. NECK: Supple. Right IJ present LUNGS: Decreased breath sounds at bases. No wheezing. No accessory muscle use. HEART: S1, S2 regular. No murmurs. ABDOMEN: Mildly distended. Bowel sounds present, nontender, no rebound, no guarding. EXTREMITIES: No edema, no cyanosis. NEUROLOGIC: Alert, awake, somewhat confused. PSYCHIATRIC: Cooperative. 1. Severe Sepsis present on admission from gram-negative bacteremia. 2. Gram-negative bacteremia, Escherichia coli. 3. Leukocytosis and lactic acidosis. 4. Anemia, status post PRBC. 5. Hyponatremia. 6. Encephalopathy, likely metabolic, CT head negative 7. History of renal cancer.S/P Nephrectomy 8. Abnormal LFTs ,Liver mass 9. History of ALLERGIES TO CLINDAMYCIN AND LEVAQUIN. 10. Recent placement of metallic stent 11. Thrombocytopenia ? Sepsis vs other 12 wheezing 03/17 , COVID-19 pending Cont ROCEPHIN IV Awaiting IR biopsy of liver lesion. Follow up repeat blood cultures. F/U AM labs. Follow-up COVID-19 Tumor markers pending Maintain aspiration precaution. GI CONSULT GEN SURG CONSULT Critically ill General: Alert, Cooperative, No acute distress Heart: Regular rate, No murmurs Lungs: Clear Abdomen: Normal bowel sounds, Soft, No tenderness Extremities: No cyanosis, No edema, Normal pulses Skin: No rashes Labs LABS SPEC #: [id number] ABRAHAM: 03/15/20 STATUS: COMP REQ #: [id number] RECD: 03/15/[address] [facility] [address]: CHARY KOEHLER MD SOURCE: BLOOD ENTR: 03/17/20 [facility] DR: MARILOU LOPEZ [facility]: ORDERED: BLD CULT - LC Procedure Result BLOOD CULTURE LC Final Final GROWTH OF GRAM NEGATIVE RODS on 03/18/20 at 1133 FINAL ID= [ESCHERICHIA COLI] ESCHERICHIA COLI ANTIMICROBIAL SUSCEPTIBILITY Final Comment NEG JUWAN 56 ESCHERICHIA COLI ANTIBIOTIC RESULT INTERPRETATION AMPICILLIN/SULBACTAM 16/8 I AMIKACIN <=16 S AMPICILLIN >16 R AMOXICILLIN/K CLAVULANATE <=8/4 S AZTREONAM <=4 S CEFTRIAXONE <=1 S CEFTAZIDIME <=1 S CEFOTAXIME <=2 S CEFOXITIN <=8 S CIPROFLOXACIN <=0.25 S CEFEPIME <=2 S CEFUROXIME <=4 S CEFTAZIDIME/AVIBACTAM <=4 S ERTAPENEM <=0.5 S GENTAMICIN <=2 S LEVOFLOXACIN <=0.5 S MEROPENEM <=1 S PIPERACILLIN/TAZOBACTAM <=8 S TRIMETHOPRIM/SULFAMETHOXAZOLE >2/38 R TETRACYCLINE <=4 S TOBRAMYCIN <=2 S Unless otherwise specified, Testing Performed by: [address] [address] For Inquires, the Physician may contact the Microbiology department at [phone] SPDESC: ORDERED: BCULT Procedure Result BLOOD CULTURE Final GRAM NEGATIVE RODS SEEN IN 1 OF 2 TOTAL BOTTLES, REPRESENTING 2 SETS COLLECTED (EACH SET ONLY HAS ONE BOTTLE). CALLED TO MICHELLE/VU ROY AT 0844 03/17/20 BY TIAN. SAMPLE SENT TO [facility] FOR FURTHER WORKUP. Laboratory Tests Test 03/19/20 12:46 03/19/20 15:25 03/19/20 16:32 03/19/20 17:39 Glucose (Fingerstick) 227 mg/dL (70-99) 281 mg/dL (70-99) Lactic Acid Level 1.3 mmol/L (0.4-2.0) Hemoglobin 8.0 g/dL (13.0-17.5) Test 03/19/20 20:36 03/20/20 06:35 Glucose (Fingerstick) 242 mg/dL (70-99) White Blood Count 12.6 x10^3/uL (4.0-11.0) Red Blood Count 2.58 x10^6/uL (4.30-5.70) Hemoglobin 7.4 g/dL (13.0-17.5) Hematocrit 21.7 % (39.0-53.0) Mean Corpuscular Volume 84 fL (79-100) Mean Corpuscular Hemoglobin 29 pg (25-35) Mean Corpuscular Hemoglobin Concent 34 g/dL (31-37) Red Cell Distribution Width 17.4 % (11.5-14.5) Platelet Count 63 x10^3/uL (140-400) Neutrophils (%) (Auto) 91 % (31-73) Lymphocytes (%) (Auto) 5 % (24-48) Monocytes (%) (Auto) 4 % (0-9) Eosinophils (%) (Auto) 0 % (0-3) Basophils (%) (Auto) 0 % (0-3) Neutrophils # (Auto) 11.5 x10^3/uL (1.8-7.7) Lymphocytes # (Auto) 0.6 x10^3/uL (1.0-4.8) Monocytes # (Auto) 0.4 x10^3/uL (0.0-1.1) Eosinophils # (Auto) 0.0 x10^3/uL (0.0-0.7) Basophils # (Auto) 0.0 x10^3/uL (0.0-0.2) Sodium Level 130 mmol/L (136-145) Potassium Level 3.9 mmol/L (3.5-5.1) Chloride Level 99 mmol/L (98-107) Carbon Dioxide Level 26 mmol/L (21-32) Anion Gap 5 (6-14) Blood Urea Nitrogen 30 mg/dL (8-26) Creatinine 1.5 mg/dL (0.7-1.3) Estimated GFR (Cockcroft-Gault) 47.7 BUN/Creatinine Ratio 20 (6-20) Glucose Level 233 mg/dL (70-99) Calcium Level 7.4 mg/dL (8.5-10.1) Total Bilirubin 0.6 mg/dL (0.2-1.0) Aspartate Amino Transf (AST/SGOT) 39 U/L (15-37) Alanine Aminotransferase (ALT/SGPT) 38 U/L (16-63) Alkaline Phosphatase 153 U/L (46-116) Total Protein 4.7 g/dL (6.4-8.2) Albumin 1.4 g/dL (3.4-5.0) Albumin/Globulin Ratio 0.4 (1.0-1.7) Assessment and Plan Assessmemt and Plan Problems Medical Problems: (1) Acute kidney injury Status: Acute (2) Encephalopathy Status: Acute (3) Hypoglycemia Status: Acute (4) Hyponatremia Status: Acute (5) Seizure Status: Acute Comment Review of Relevant I have reviewed the following items clarisse (where applicable) has been applied. Labs Laboratory Tests Test 03/18/20 08:00 03/18/20 11:37 03/18/20 14:20 03/18/20 15:30 Glucose (Fingerstick) 210 mg/dL (70-99) 132 mg/dL (70-99) White Blood Count 9.6 x10^3/uL (4.0-11.0) Red Blood Count 3.29 x10^6/uL (4.30-5.70) Hemoglobin 9.5 g/dL (13.0-17.5) Hematocrit 28.4 % (39.0-53.0) Mean Corpuscular Volume 87 fL (79-100) Mean Corpuscular Hemoglobin 29 pg (25-35) Mean Corpuscular Hemoglobin Concent 34 g/dL (31-37) Red Cell Distribution Width 17.3 % (11.5-14.5) Platelet Count 104 x10^3/uL (140-400) Prothrombin Time 18.2 SEC (11.7-14.0) Prothromb Time International Ratio 1.5 (0.8-1.1) Sodium Level 129 mmol/L (136-145) Potassium Level 4.3 mmol/L (3.5-5.1) Chloride Level 97 mmol/L (98-107) Carbon Dioxide Level 15 mmol/L (21-32) Anion Gap 17 (6-14) Blood Urea Nitrogen 30 mg/dL (8-26) Creatinine 2.1 mg/dL (0.7-1.3) Estimated GFR (Cockcroft-Gault) 32.4 Glucose Level 87 mg/dL (70-99) Lactic Acid Level 7.2 mmol/L (0.4-2.0) Calcium Level 7.1 mg/dL (8.5-10.1) Magnesium Level 1.5 mg/dL (1.8-2.4) Total Bilirubin 1.3 mg/dL (0.2-1.0) Direct Bilirubin 0.8 mg/dL (0.0-0.2) Aspartate Amino Transf (AST/SGOT) 92 U/L (15-37) Alanine Aminotransferase (ALT/SGPT) 54 U/L (16-63) Alkaline Phosphatase 287 U/L (46-116) Total Protein 5.0 g/dL (6.4-8.2) Albumin 1.4 g/dL (3.4-5.0) O2 Saturation 96 % (92-99) Arterial Blood pH 7.47 (7.35-7.45) Arterial Blood pCO2 at Patient Temp 17 mmHg (35-46) Arterial Blood pO2 at Patient Temp 91 mmHg (65-108) Arterial Blood HCO3 12 mmol/L (21-28) Arterial Blood Base Excess -10 mmol/L (-3-3) FiO2 5l nc Test 03/18/20 17:53 03/18/20 18:00 03/18/20 21:17 03/19/20 05:25 Glucose (Fingerstick) 78 mg/dL (70-99) 125 mg/dL (70-99) Lactic Acid Level 5.9 mmol/L (0.4-2.0) White Blood Count 9.8 x10^3/uL (4.0-11.0) Red Blood Count 2.35 x10^6/uL (4.30-5.70) Hemoglobin 6.9 g/dL (13.0-17.5) Hematocrit 20.1 % (39.0-53.0) Mean Corpuscular Volume 85 fL (79-100) Mean Corpuscular Hemoglobin 29 pg (25-35) Mean Corpuscular Hemoglobin Concent 34 g/dL (31-37) Red Cell Distribution Width 17.3 % (11.5-14.5) Platelet Count 55 x10^3/uL (140-400) Neutrophils (%) (Auto) 88 % (31-73) Lymphocytes (%) (Auto) 8 % (24-48) Monocytes (%) (Auto) 3 % (0-9) Eosinophils (%) (Auto) 0 % (0-3) Basophils (%) (Auto) 0 % (0-3) Neutrophils # (Auto) 8.6 x10^3/uL (1.8-7.7) Lymphocytes # (Auto) 0.8 x10^3/uL (1.0-4.8) Monocytes # (Auto) 0.3 x10^3/uL (0.0-1.1) Eosinophils # (Auto) 0.0 x10^3/uL (0.0-0.7) Basophils # (Auto) 0.0 x10^3/uL (0.0-0.2) Fibrinogen 376 mg/dL (200-440) D-Dimer (Jackelin) > 20.00 ug/mlFEU Sodium Level 131 mmol/L (136-145) Potassium Level 4.0 mmol/L (3.5-5.1) Chloride Level 97 mmol/L (98-107) Carbon Dioxide Level 23 mmol/L (21-32) Anion Gap 11 (6-14) Blood Urea Nitrogen 30 mg/dL (8-26) Creatinine 1.9 mg/dL (0.7-1.3) Estimated GFR (Cockcroft-Gault) 36.3 BUN/Creatinine Ratio 16 (6-20) Glucose Level 202 mg/dL (70-99) Calcium Level 7.0 mg/dL (8.5-10.1) Ferritin 2072 ng/mL (26-388) Total Bilirubin 1.0 mg/dL (0.2-1.0) Aspartate Amino Transf (AST/SGOT) 42 U/L (15-37) Alanine Aminotransferase (ALT/SGPT) 36 U/L (16-63) Alkaline Phosphatase 169 U/L (46-116) Total Protein 4.9 g/dL (6.4-8.2) Albumin 1.6 g/dL (3.4-5.0) Albumin/Globulin Ratio 0.5 (1.0-1.7) Test 03/19/20 12:46 03/19/20 15:25 03/19/20 16:32 03/19/20 17:39 Glucose (Fingerstick) 227 mg/dL (70-99) 281 mg/dL (70-99) Lactic Acid Level 1.3 mmol/L (0.4-2.0) Hemoglobin 8.0 g/dL (13.0-17.5) Test 03/19/20 20:36 03/20/20 06:35 Glucose (Fingerstick) 242 mg/dL (70-99) White Blood Count 12.6 x10^3/uL (4.0-11.0) Red Blood Count 2.58 x10^6/uL (4.30-5.70) Hemoglobin 7.4 g/dL (13.0-17.5) Hematocrit 21.7 % (39.0-53.0) Mean Corpuscular Volume 84 fL (79-100) Mean Corpuscular Hemoglobin 29 pg (25-35) Mean Corpuscular Hemoglobin Concent 34 g/dL (31-37) Red Cell Distribution Width 17.4 % (11.5-14.5) Platelet Count 63 x10^3/uL (140-400) Neutrophils (%) (Auto) 91 % (31-73) Lymphocytes (%) (Auto) 5 % (24-48) Monocytes (%) (Auto) 4 % (0-9) Eosinophils (%) (Auto) 0 % (0-3) Basophils (%) (Auto) 0 % (0-3) Neutrophils # (Auto) 11.5 x10^3/uL (1.8-7.7) Lymphocytes # (Auto) 0.6 x10^3/uL (1.0-4.8) Monocytes # (Auto) 0.4 x10^3/uL (0.0-1.1) Eosinophils # (Auto) 0.0 x10^3/uL (0.0-0.7) Basophils # (Auto) 0.0 x10^3/uL (0.0-0.2) Sodium Level 130 mmol/L (136-145) Potassium Level 3.9 mmol/L (3.5-5.1) Chloride Level 99 mmol/L (98-107) Carbon Dioxide Level 26 mmol/L (21-32) Anion Gap 5 (6-14) Blood Urea Nitrogen 30 mg/dL (8-26) Creatinine 1.5 mg/dL (0.7-1.3) Estimated GFR (Cockcroft-Gault) 47.7 BUN/Creatinine Ratio 20 (6-20) Glucose Level 233 mg/dL (70-99) Calcium Level 7.4 mg/dL (8.5-10.1) Total Bilirubin 0.6 mg/dL (0.2-1.0) Aspartate Amino Transf (AST/SGOT) 39 U/L (15-37) Alanine Aminotransferase (ALT/SGPT) 38 U/L (16-63) Alkaline Phosphatase 153 U/L (46-116) Total Protein 4.7 g/dL (6.4-8.2) Albumin 1.4 g/dL (3.4-5.0) Albumin/Globulin Ratio 0.4 (1.0-1.7) Laboratory Tests Test 03/19/20 12:46 03/19/20 15:25 03/19/20 16:32 03/19/20 17:39 Glucose (Fingerstick) 227 mg/dL (70-99) 281 mg/dL (70-99) Lactic Acid Level 1.3 mmol/L (0.4-2.0) Hemoglobin 8.0 g/dL (13.0-17.5) Test 03/19/20 20:36 03/20/20 06:35 Glucose (Fingerstick) 242 mg/dL (70-99) White Blood Count 12.6 x10^3/uL (4.0-11.0) Red Blood Count 2.58 x10^6/uL (4.30-5.70) Hemoglobin 7.4 g/dL (13.0-17.5) Hematocrit 21.7 % (39.0-53.0) Mean Corpuscular Volume 84 fL (79-100) Mean Corpuscular Hemoglobin 29 pg (25-35) Mean Corpuscular Hemoglobin Concent 34 g/dL (31-37) Red Cell Distribution Width 17.4 % (11.5-14.5) Platelet Count 63 x10^3/uL (140-400) Neutrophils (%) (Auto) 91 % (31-73) Lymphocytes (%) (Auto) 5 % (24-48) Monocytes (%) (Auto) 4 % (0-9) Eosinophils (%) (Auto) 0 % (0-3) Basophils (%) (Auto) 0 % (0-3) Neutrophils # (Auto) 11.5 x10^3/uL (1.8-7.7) Lymphocytes # (Auto) 0.6 x10^3/uL (1.0-4.8) Monocytes # (Auto) 0.4 x10^3/uL (0.0-1.1) Eosinophils # (Auto) 0.0 x10^3/uL (0.0-0.7) Basophils # (Auto) 0.0 x10^3/uL (0.0-0.2) Sodium Level 130 mmol/L (136-145) Potassium Level 3.9 mmol/L (3.5-5.1) Chloride Level 99 mmol/L (98-107) Carbon Dioxide Level 26 mmol/L (21-32) Anion Gap 5 (6-14) Blood Urea Nitrogen 30 mg/dL (8-26) Creatinine 1.5 mg/dL (0.7-1.3) Estimated GFR (Cockcroft-Gault) 47.7 BUN/Creatinine Ratio 20 (6-20) Glucose Level 233 mg/dL (70-99) Calcium Level 7.4 mg/dL (8.5-10.1) Total Bilirubin 0.6 mg/dL (0.2-1.0) Aspartate Amino Transf (AST/SGOT) 39 U/L (15-37) Alanine Aminotransferase (ALT/SGPT) 38 U/L (16-63) Alkaline Phosphatase 153 U/L (46-116) Total Protein 4.7 g/dL (6.4-8.2) Albumin 1.4 g/dL (3.4-5.0) Albumin/Globulin Ratio 0.4 (1.0-1.7) Microbiology 03/16/20 Blood Culture - Preliminary, Resulted NO GROWTH AFTER 4 DAYS Medications Current Medications Haloperidol Lactate (Haldol Inj) 5 mg 1X ONCE IM Last administered on 03/15/20at 19:30; Start 03/15/20 at 20:00; Stop 03/15/20 at 20:01; Status DC Diphenhydramine HCl (Benadryl) 50 mg 1X ONCE IM Last administered on 03/15/20at 19:30; Start 03/15/20 at 20:00; Stop 03/15/20 at 20:01; Status DC Lorazepam (Ativan Inj) 1 mg 1X ONCE IVP Last administered on 03/15/20at 20:55; Start 03/15/20 at 20:00; Stop 03/15/20 at 20:01; Status DC Dextrose (Dextrose 50%-Water Syringe) 25 gm 1X ONCE IV ; Start 03/15/20 at 21:30; Stop 03/15/20 at 21:23; Status DC Dextrose 1,000 ml @ 75 mls/hr 1X ONCE IV Last administered on 03/15/20at 21:03; Start 03/15/20 at 21:30; Stop 03/15/20 at 21:23; Status DC Sodium Chloride 154 meq/Dextrose 1,038.5 ml @ 75 mls/hr [id number] IV Last administered on 03/16/20at 12:30; Start 03/15/20 at 22:00; Stop 03/16/20 at 21:59; Status DC Ceftriaxone Sodium (Rocephin) 2 gm 1X ONCE IVP Last administered on 03/15/20at 22:36; Start 03/15/20 at 22:00; Stop 03/15/20 at 22:01; Status DC Ondansetron HCl (Zofran) 4 mg PRN Q8HRS PRN IV NAUSEA/VOMITING 1ST CHOICE; Start 03/15/20 at 21:30; Stop 03/16/20 at 20:48; Status DC Lorazepam (Ativan Inj) 2 mg 1X ONCE IVP Last administered on 03/15/20at 23:37; Start 03/15/20 at 23:45; Stop 03/15/20 at 23:46; Status DC Lorazepam (Ativan Inj) 1 mg PRN Q4HRS PRN IVP ANXIETY / AGITATION Last administered on 03/18/20at 12:08; Start 03/16/20 at 03:15 Amlodipine Besylate (Norvasc) 10 mg DAILY PO Last administered on 03/18/20at 09:57; Start 03/16/20 at 09:00 Atorvastatin Calcium (Lipitor) 20 mg QHS PO Last administered on 03/19/20at 20:31; Start 03/16/20 at 21:00 Diclofenac Sodium (Voltaren) 1 rama PRN QID PRN TP PAIN; Start 03/16/20 at 08:00 Lidocaine (Lidoderm) 1 patch PRN DAILY PRN TP TOPICAL PAIN; Start 03/16/20 at 08:00; Stop 03/17/20 at 07:16; Status DC Montelukast Sodium (Singulair) 10 mg DAILY PO Last administered on 03/19/20at 09:55; Start 03/16/20 at 09:00 Polyethylene Glycol (miraLAX PACKET) 17 gm PRN DAILY PRN PO CONSTIPATION; Sta rt 03/16/20 at 08:00 Non-Formulary Medication (Albuterol Sulfate (Ventolin Hfa Inhaler)) 2 puff PRN Q4-6HRS IH ; Start 03/16/20 at 08:00; Status UNV Duloxetine HCl (Cymbalta) 60 mg BID PO Last administered on 03/19/20at 20:30; Start 03/16/20 at 09:00 Insulin Glargine (Lantus Syringe) 10 unit QHS SQ Last administered on 03/17/20at 22:17; Start 03/16/20 at 21:00; Stop 03/18/20 at 13:25; Status DC Pantoprazole Sodium (Protonix) 40 mg DAILYAC PO Last administered on 03/18/20at 04:58; Start 03/16/20 at 08:30; Stop 03/18/20 at 14:14; Status DC Linagliptin (Tradjenta) 5 mg DAILY PO Last administered on 03/19/20 09:55; Start 03/16/20 at 09:00 Insulin Human Lispro (HumaLOG) 0-7 UNITS TIDACHC SQ Last administered on 03/19/20at 20:40; Start 03/16/20 at 11:30 Dextrose (Dextrose 50%-Water Syringe) 12.5 gm PRN Q15MIN PRN IV SEE COMMENTS; Start 03/16/20 at 08:00 Albuterol Sulfate (Ventolin Neb Soln) 2.5 mg PRN Q4HRS PRN NEB SHORTNESS OF BREATH; Start 03/16/20 at 08:30 Haloperidol Lactate (Haldol Inj) 5 mg PRN Q6HRS PRN IVP AGITATION Last administered on 03/16/20at 18:15; Start 03/16/20 at 10:45 Fentanyl Citrate (Fentanyl 2ml Vial) 25 mcg PRN Q3HRS PRN IVP MOD-SEVERE PAIN Last administered on 03/16/20at 12:33; Start 03/16/20 at 11:00; Stop 03/17/20 at 20:17; Status DC Diphenhydramine HCl (Benadryl) 25 mg PRN Q6HRS PRN IVP ITCHING Last administered on 03/16/20at 13:41; Start 03/16/20 at 13:45 Metoprolol Tartrate (Lopressor) 25 mg BID PO Last administered on 03/19/20at 20:31; Start 03/16/20 at 15:30 Ondansetron HCl (Zofran) 4 mg PRN Q4HRS PRN IV NAUSEA/VOMITING 1ST CHOICE; Start 03/16/20 at 21:00 Heparin Sodium (Porcine) (Heparin Sodium) 5,000 unit Q8HRS SQ Last administered on 03/18/20at 05:01; Start 03/16/20 at 22:00; Stop 03/18/20 at 14:34; Status DC Ceftriaxone Sodium (Rocephin) 1 gm Q24H IVP Last administered on 03/16/20at 21:35; Start 03/16/20 at 22:00; Stop 03/17/20 at 20:23; Status DC Acetaminophen (Tylenol Supp) 650 mg PRN Q6HRS PRN AR MILD PAIN / TEMP > 100.3'F Last administered on 03/17/20at 20:34; Start 03/16/20 at 23:00 Sodium Chloride 154 meq/Dextrose 1,038.5 ml @ 75 mls/hr [id number] IV Last administered on 03/17/20at 04:45; Start 03/17/20 at 04:45; Stop 03/17/20 at 13:10; Status DC Dextrose/Sodium Chloride 1,000 ml @ 150 mls/hr Q6H40M IV Last administered on 03/18/20at 02:00; Start 03/17/20 at 17:30; Stop 03/18/20 at 13:23; Status DC Atenolol (Tenormin) 25 mg DAILY PO ; Start 03/17/20 at 14:00; Stop 03/17/20 at 14:42; Status DC Lorazepam (Ativan) 1 mg PRN BID PRN PO ANXIETY / AGITATION Last administered on 03/17/20at 21:11; Start 03/17/20 at 14:00 Tizanidine HCl (Zanaflex) 4 mg PRN Q6HRS PRN PO MUSCLE PAIN; Start 03/17/20 at 14:00 Diclofenac Sodium (Voltaren) 75 mg BID PO ; Start 03/17/20 at 21:00; Stop 03/17/20 at 20:22; Status DC Non-Formulary Medication (Ondansetron Hcl ) 8 mg PRN BID PRN PO NAUSEA/VOMITING; Start 03/17/20 at 14:00; Stop 03/18/20 at 16:12; Status DC Oxycodone HCl (Roxicodone) 15 mg PRN Q6HRS PRN PO MODERATE TO SEVERE PAIN Last administered on 03/19/20at 20:30; Start 03/17/20 at 14:15 Metoprolol Tartrate (Lopressor Vial) 5 mg 1X ONCE IVP Last administered on 03/17/20at 19:51; Start 03/17/20 at 19:30; Stop 03/17/20 at 19:31; Status DC Metoprolol Tartrate (Lopressor) 25 mg 1X ONCE PO Last administered on 03/17/20at 21:12; Start 03/17/20 at 21:00; Stop 03/17/20 at 21:01; Status DC Fentanyl Citrate (Fentanyl 2ml Vial) 50 mcg PRN Q3HRS PRN IVP MOD-SEVERE PAIN L ast administered on 03/18/20at 09:54; Start 03/17/20 at 20:30 Ketorolac Tromethamine (Toradol 15mg Vial) 15 mg 1X ONCE IVP Last administered on 03/17/20at 20:34; Start 03/17/20 at 20:15; Stop 03/17/20 at 20:22; Status DC Piperacillin Sod/ Tazobactam Sod (Zosyn Per Pharmacy) 1 each PRN DAILY PRN MC SEE COMMENTS; Start 03/17/20 at 20:30; Stop 03/18/20 at 13:08; Status DC Piperacillin Sod/ Tazobactam Sod 3.375 gm/Sodium Chloride 50 ml @ 100 mls/hr Q6H IV Last administered on 03/18/20at 08:37; Start 03/17/20 at 21:00; Stop 03/18/20 at 12:23; Status DC Albuterol/ Ipratropium (Duoneb) 3 ml RTQID NEB Last administered on 03/19/20at 20:00; Start 03/18/20 at 12:00 Methylprednisolone Sodium Succinate (SOLU-Medrol 125MG VIAL) 125 mg 1X ONCE IV Last administered on 03/18/20at 12:26; Start 03/18/20 at 13:00; Stop 03/18/20 at 13:01; Status DC Budesonide (Pulmicort) 0.5 mg RTBID NEB Last administered on 03/19/20at 20:00; Start 03/18/20 at 20:00 Meropenem 500 mg/ Sodium Chloride 50 ml @ 100 mls/hr Q6HRS IV Last admi nistered on 03/20/20at 05:38; Start 03/18/20 at 13:30; Stop 03/20/20 at 07:33; Status DC Metoprolol Tartrate (Lopressor Vial) 5 mg 1X ONCE IVP Last administered on 03/18/20at 13:49; Start 03/18/20 at 13:15; Stop 03/18/20 at 13:16; Status DC Insulin Glargine (Lantus Syringe) 5 unit QHS SQ Last administered on 03/19/20at 20:32; Start 03/18/20 at 21:00 Furosemide (Lasix) 20 mg 1X ONCE IVP Last administered on 03/18/20at 14:23; Start 03/18/20 at 14:30; Stop 03/18/20 at 14:31; Status DC Pantoprazole Sodium (PROTONIX VIAL for IV PUSH) 40 mg BIDAC IVP Last administered on 03/19/20at 16:28; Start 03/18/20 at 16:30 Magnesium Sulfate 50 ml @ 25 mls/hr 1X ONCE IV Last administered on 03/18/20at 17:36; Start 03/18/20 at 16:00; Stop 03/18/20 at 17:59; Status DC Metoprolol Tartrate (Lopressor Vial) 5 mg PRN Q6HRS PRN IVP HYPERTENSION; Start 03/18/20 at 15:45 Albumin Human 500 ml @ 125 mls/hr PRN DAILY PRN IV SEE COMMENTS Last administered on 03/18/20at 16:07; Start 03/18/20 at 15:45 Norepinephrine Bitartrate 8 mg/ Dextrose 258 ml @ 17.705 mls/ hr CONT PRN IV PER PROTOCOL; Start 03/18/20 at 15:45 Ondansetron HCl (Zofran Odt) 4 mg PRN BID PRN PO NAUSEA/VOMITING; Start 03/18/20 at 16:15; Stop 03/18/20 at 16:12; Status DC Ondansetron HCl (Zofran Odt) 8 mg PRN BID PRN PO NAUSEA/VOMITING; Start 03/18/20 at 16:15 Ceftriaxone Sodium (Rocephin) 2 gm Q24H IVP ; Start 03/20/20 at 08:00 Active Scripts Active Miralax (Polyethylene Glycol 3350) 17 Gm Powd.pack 1 Pkt PO PRN DAILY PRN Reported Etodolac 400 Mg Tablet 1 Tab PO BID Ondansetron Hcl 8 Mg Tablet 8 Mg PO BID PRN Oxycodone Hcl Immed.release (Oxycodone Hcl) 15 Mg Tablet 15 Mg PO PRN Q6HRS PRN Montelukast Sodium Tablet (Montelukast Sodium) 10 Mg Tablet 10 Mg PO DAILY Basaglar Kwikpen U-100 (Insulin Glargine,Hum.rec.anlog) 100 Unit/1 Ml Insuln.pen 50 Unit SQ HS Prilosec Otc (Omeprazole Magnesium) 20 Mg Tablet.dr 1 Tab PO DAILY Novolog Flexpen (Insulin Aspart) 100 Unit/1 Ml Insuln.pen 1 Unit SQ 15-20 UNITS WITH MEALS TO MAX OF 80 UNITS DAILY Atorvastatin Calcium 20 Mg Tablet 1 Tab PO DAILY Januvia (Sitagliptin Phosphate) 50 Mg Tablet 1 Tab PO DAILY Tizanidine Hcl 4 Mg Tablet 1 Tab PO Q6HRS PRN can have 1-2 tabs Lidoderm (Lidocaine) 700 Mg Adh..patch 1 Patch TP DAILY PRN Ativan (Lorazepam) 1 Mg Tablet 1 Mg PO BID PRN Amlodipine Besylate 10 Mg Tablet 10 Mg PO DAILY Atenolol 25 Mg Tablet 1 Tab PO DAILY Voltaren (Diclofenac Sodium) 100 Gm Gel..gram. 1 Gm TP QID PRN Ventolin Hfa Inhaler (Albuterol Sulfate) 18 Gm Hfa.aer.ad 2 Puff IH PRN Q4-6HRS Cymbalta (Duloxetine Hcl) 60 Mg Capsule. 60 Mg PO BID Vitals/I & O Vital Sign - Last 24 Hours 03/19/20 03/19/20 03/19/20 03/19/20 08:00 08:00 08:07 08:20 Temp 97.9 97.7 97.9 97.7 Pulse 91 90 92 Resp 20 B/P (MAP) 102/63 (76) 102/63 102/45 Pulse Ox 100 O2 Delivery Room Air Room Air 03/19/20 03/19/20 03/19/20 03/19/20 09:00 09:00 09:00 09:09 Temp 97.9 97.9 Pulse 91 91 97 96 Resp 20 21 B/P (MAP) 101/67 101/67 123/62 (82) 123/62 Pulse Ox 100 O2 Delivery Room Air 03/19/20 03/19/20 03/19/20 03/19/20 10:00 11:00 12:00 12:00 Temp 97.9 97.9 Pulse 92 91 90 Resp 20 21 21 B/P (MAP) 115/66 (82) 101/63 (76) 101/66 (78) Pulse Ox 100 100 97 O2 Delivery Room Air Room Air Room Air Room Air 03/19/20 03/19/20 03/19/20 03/19/20 13:00 14:00 15:00 16:00 Temp 96.9 96.9 Pulse 90 85 79 89 Resp 21 15 17 19 B/P (MAP) 110/62 (78) 95/57 (70) 96/58 (71) 121/70 (87) Pulse Ox 99 98 98 98 O2 Delivery Room Air Room Air Room Air Room Air 03/19/20 03/19/20 03/19/20 03/19/20 16:00 17:00 18:00 19:00 Pulse 86 86 87 Resp 18 18 21 B/P (MAP) 103/65 (78) 107/61 (76) 117/71 (86) Pulse Ox 100 100 100 O2 Delivery Room Air Room Air Room Air Room Air 03/19/20 03/19/20 03/19/20 03/19/20 20:00 20:00 20:29 20:30 Temp 97.4 97.4 Pulse 91 Resp 26 B/P (MAP) 105/67 (80) Pulse Ox 100 99 99 O2 Delivery Room Air Room Air Room Air Room Air 03/19/20 03/19/20 03/19/20 03/19/20 20:31 21:00 22:00 23:00 Pulse 87 92 80 85 Resp 21 22 22 B/P (MAP) 117/71 108/69 (82) 99/64 (76) 107/65 (79) Pulse Ox 100 100 96 O2 Delivery Room Air Room Air Room Air 03/20/20 03/20/20 03/20/20 03/20/20 00:00 00:00 01:00 02:00 Temp 98.4 98.4 Pulse 77 74 78 Resp 18 22 19 B/P (MAP) 97/56 (70) 102/66 (78) 106/68 (81) Pulse Ox 98 94 98 O2 Delivery Room Air Room Air Room Air Room Air 03/20/20 03/20/20 03/20/20 03/20/20 03:00 04:00 04:00 05:00 Temp 97.7 97.7 Pulse 86 77 76 Resp 19 18 18 B/P (MAP) 125/75 (92) 105/66 (79) 107/67 (80) Pulse Ox 96 98 97 O2 Delivery Room Air Room Air Room Air Room Air 03/20/20 03/20/20 03/20/20 06:08 07:00 07:13 Pulse 78 84 Resp 18 16 B/P (MAP) 106/68 (81) 116/71 (86) Pulse Ox 98 100 100 O2 Delivery Room Air Room Air Room Air Intake and Output 03/19/20 03/19/20 03/20/20 15:00 23:00 07:00 Intake Total 404 ml 1000 ml Output Total 560 ml 700 ml 450 ml Balance -156 ml 300 ml -450 ml Justicifation of Admission Dx: Justifications for Admission: Justification of Admission Dx: Yes DAKSHA MCCULLOUGH MD Mar 20, 2020 07:52
--- NOTE | 2020-03-20 07:59 | PDOC ---
Provider Note Provider Note Subjective: Subjective Patient more alert this a.m. Continues to have bloody stool Has some abdominal discomfort left lower quadrant No fevers Not on pressors Status post PRBC yesterday Vital Signs: Vital Signs Vital Signs Date Time Temp Pulse Resp B/P (MAP) Pulse Ox O2 Delivery O2 Flow Rate FiO2 03/20/20 06:08 78 18 106/68 (81) 98 Room Air 03/20/20 04:00 97.7 97.7 Physical Exam: PHYSICAL EXAM GENERAL: Alert, awake, looks better, and upright in chair HEENT: Normocephalic, atraumatic, anicteric. Oral mucosa dry. No thrush. NECK: Supple. Right IJ present LUNGS: Decreased breath sounds at bases. No wheezing. No accessory muscle use. HEART: S1, S2 regular. No murmurs. ABDOMEN: Mildly distended. Bowel sounds present, nontender, no rebound, no guarding. Hernandez in place EXTREMITIES: No edema, no cyanosis. NEUROLOGIC: Alert, awake, oriented x3 nonfocal PSYCHIATRIC: Cooperative. Medications: Inpatient Meds: Current Medications Medications (Trade) Dose Ordered Sig/Tory Start Time Stop Time Status Last Admin Dose Admin Acetaminophen (Tylenol Supp) 650 mg PRN Q6HRS PRN 03/16/20 23:00 03/17/20 20:34 650 MG Albumin Human 500 ml @ 125 mls/hr PRN DAILY PRN 03/18/20 15:45 03/18/20 16:07 125 MLS/HR Albuterol Sulfate (Ventolin Neb Soln) 2.5 mg PRN Q4HRS PRN 03/16/20 08:30 Albuterol/ Ipratropium (Duoneb) 3 ml RTQID 03/18/20 12:00 03/19/20 20:00 3 ML Amlodipine Besylate (Norvasc) 10 mg DAILY 03/16/20 09:00 03/18/20 09:57 10 MG Atenolol (Tenormin) 25 mg DAILY 03/17/20 14:00 03/17/20 14:42 DC Atorvastatin Calcium (Lipitor) 20 mg QHS 03/16/20 21:00 03/19/20 20:31 20 MG Budesonide (Pulmicort) 0.5 mg RTBID 03/18/20 20:00 03/19/20 20:00 0.5 MG Ceftriaxone Sodium (Rocephin) 1 gm Q24H 03/16/20 22:00 03/17/20 20:23 DC 03/16/20 21:35 1 GM Dextrose (Dextrose 50%-Water Syringe) 12.5 gm PRN Q15MIN PRN 03/16/20 08:00 Dextrose/Sodium Chloride 1,000 ml @ 150 mls/hr Q6H40M 03/17/20 17:30 03/18/20 13:23 DC 03/18/20 02:00 150 MLS/HR Diclofenac Sodium (Voltaren) 75 mg BID 03/17/20 21:00 03/17/20 20:22 DC Diphenhydramine HCl (Benadryl) 25 mg PRN Q6HRS PRN 03/16/20 13:45 03/16/20 13:41 25 MG Duloxetine HCl (Cymbalta) 60 mg BID 03/16/20 09:00 03/19/20 20:30 60 MG Fentanyl Citrate (Fentanyl 2ml Vial) 50 mcg PRN Q3HRS PRN 03/17/20 20:30 03/18/20 09:54 50 MCG Furosemide (Lasix) 20 mg 1X ONCE 03/18/20 14:30 03/18/20 14:31 DC 03/18/20 14:23 20 MG Haloperidol Lactate (Haldol Inj) 5 mg PRN Q6HRS PRN 03/16/20 10:45 03/16/20 18:15 5 MG Heparin Sodium (Porcine) (Heparin Sodium) 5,000 unit Q8HRS 03/16/20 22:00 03/18/20 14:34 DC 03/18/20 05:01 5,000 UNIT Insulin Glargine (Lantus Syringe) 5 unit QHS 03/18/20 21:00 03/19/20 20:32 5 UNIT Insulin Human Lispro (HumaLOG) 0-7 UNITS TIDACHC 03/16/20 11:30 03/19/20 20:40 2 UNITS Ketorolac Tromethamine (Toradol 15mg Vial) 15 mg 1X ONCE 03/17/20 20:15 03/17/20 20:22 DC 03/17/20 20:34 15 MG Lidocaine (Lidoderm) 1 patch PRN DAILY PRN 03/16/20 08:00 03/17/20 07:16 DC Linagliptin (Tradjenta) 5 mg DAILY 03/16/20 09:00 03/19/20 09:55 5 MG Lorazepam (Ativan Inj) 1 mg PRN Q4HRS PRN 03/16/20 03:15 03/18/20 12:08 1 MG Lorazepam (Ativan) 1 mg PRN BID PRN 03/17/20 14:00 03/17/20 21:11 1 MG Magnesium Sulfate 50 ml @ 25 mls/hr 1X ONCE 03/18/20 16:00 03/18/20 17:59 DC 03/18/20 17:36 25 MLS/HR Meropenem 500 mg/ Sodium Chloride 50 ml @ 100 mls/hr Q6HRS 03/18/20 13:30 03/20/20 05:38 100 MLS/HR Methylprednisolone Sodium Succinate (SOLU-Medrol 125MG VIAL) 125 mg 1X ONCE 03/18/20 13:00 03/18/20 13:01 DC 03/18/20 12:26 125 MG Metoprolol Tartrate (Lopressor Vial) 5 mg PRN Q6HRS PRN 03/18/20 15:45 Metoprolol Tartrate (Lopressor) 25 mg 1X ONCE 03/17/20 21:00 03/17/20 21:01 DC 03/17/20 21:12 25 MG Montelukast Sodium (Singulair) 10 mg DAILY 03/16/20 09:00 03/19/20 09:55 10 MG Non-Formulary Medication (Albuterol Sulfate (Ventolin Hfa Inhaler)) 2 puff PRN Q4-6HRS 03/16/20 08:00 UNV Non-Formulary Medication (Ondansetron Hcl ) 8 mg PRN BID PRN 03/17/20 14:00 03/18/20 16:12 DC Norepinephrine Bitartrate 8 mg/ Dextrose 258 ml @ 17.705 mls/ hr CONT PRN 03/18/20 15:45 Ondansetron HCl (Zofran Odt) 8 mg PRN BID PRN 03/18/20 16:15 Ondansetron HCl (Zofran) 4 mg PRN Q4HRS PRN 03/16/20 21:00 Oxycodone HCl (Roxicodone) 15 mg PRN Q6HRS PRN 03/17/20 14:15 03/19/20 20:30 15 MG Pantoprazole Sodium (PROTONIX VIAL for IV PUSH) 40 mg BIDAC 03/18/20 16:30 03/19/20 16:28 40 MG Pantoprazole Sodium (Protonix) 40 mg DAILYAC 03/16/20 08:30 03/18/20 14:14 DC 03/18/20 04:58 40 MG Piperacillin Sod/ Tazobactam Sod (Zosyn Per Pharmacy) 1 each PRN DAILY PRN 03/17/20 20:30 03/18/20 13:08 DC Piperacillin Sod/ Tazobactam Sod 3.375 gm/Sodium Chloride 50 ml @ 100 mls/hr Q6H 03/17/20 21:00 03/18/20 12:23 DC 03/18/20 08:37 100 MLS/HR Polyethylene Glycol (miraLAX PACKET) 17 gm PRN DAILY PRN 03/16/20 08:00 Sodium Chloride 154 meq/Dextrose 1,038.5 ml @ 75 mls/hr [id number] 03/17/20 04:45 03/17/20 13:10 DC 03/17/20 04:45 75 MLS/HR Tizanidine HCl (Zanaflex) 4 mg PRN Q6HRS PRN 03/17/20 14:00 Labs: Lab Laboratory Tests Test 03/19/20 12:46 03/19/20 15:25 03/19/20 16:32 03/19/20 17:39 Glucose (Fingerstick) 227 mg/dL (70-99) 281 mg/dL (70-99) Lactic Acid Level 1.3 mmol/L (0.4-2.0) Hemoglobin 8.0 g/dL (13.0-17.5) Test 03/19/20 20:36 03/20/20 06:35 Glucose (Fingerstick) 242 mg/dL (70-99) White Blood Count 12.6 x10^3/uL (4.0-11.0) Red Blood Count 2.58 x10^6/uL (4.30-5.70) Hemoglobin 7.4 g/dL (13.0-17.5) Hematocrit 21.7 % (39.0-53.0) Mean Corpuscular Volume 84 fL (79-100) Mean Corpuscular Hemoglobin 29 pg (25-35) Mean Corpuscular Hemoglobin Concent 34 g/dL (31-37) Red Cell Distribution Width 17.4 % (11.5-14.5) Platelet Count 63 x10^3/uL (140-400) Neutrophils (%) (Auto) 91 % (31-73) Lymphocytes (%) (Auto) 5 % (24-48) Monocytes (%) (Auto) 4 % (0-9) Eosinophils (%) (Auto) 0 % (0-3) Basophils (%) (Auto) 0 % (0-3) Neutrophils # (Auto) 11.5 x10^3/uL (1.8-7.7) Lymphocytes # (Auto) 0.6 x10^3/uL (1.0-4.8) Monocytes # (Auto) 0.4 x10^3/uL (0.0-1.1) Eosinophils # (Auto) 0.0 x10^3/uL (0.0-0.7) Basophils # (Auto) 0.0 x10^3/uL (0.0-0.2) Micro RUN DATE: 03/18/20 [facility] *LIVE* PAGE 1 RUN TIME: 1139 Specimen Inquiry PATIENT: LASHAY MARQUEZ ACCT: [id number] LOC: [address] [place] [address] U: [id number] AGE/SX: 59/M ROOM: 538 RE03/15/[address]: DAKSHA MCCULLOUGH MD : 1960 BED: 1 DIS: STATUS: ADM John TLOC: SPEC #: [id number] ABRAHAM: 03/15/20 STATUS: RES REQ #: [id number] RECD: 03/15/[address]: CHARY KOEHLER MD SOURCE: BLOOD ENTR: 03/17/[address] [facility] [address]: MARILOU LOPEZ MD [facility]: ORDERED: BLD CULT - LC Procedure Result BLOOD CULTURE LC Preliminary Preliminary GROWTH OF GRAM NEGATIVE RODS on 03/18/20 at 1133 FINAL ID= [ESCHERICHIA COLI] ESCHERICHIA COLI Unless otherwise specified, Testing Performed by: [address] [address] For Inquires, the Physician may contact the Microbiology department at [phone] Objective: Assessment: 1. Severe Sepsis present on admission from gram-negative bacteremia. 2. E Coli bacteremia, 3. Leukocytosis and lactic acidosis. 4. Anemia, status post PRBC. 5. Hyponatremia. 6. Encephalopathy, likely metabolic, CT head negative 7. History of renal cancer.S/P Nephrectomy 8. Abnormal LFTs ,Liver mass 9. History of ALLERGIES TO CLINDAMYCIN AND LEVAQUIN. 10. Recent placement of metallic stent 11. Thrombocytopenia ? Sepsis vs other 12 COVID-19 pending Plan: Plan of Care DC meropenem Ceftriaxone Follow up repeat blood cultures. Negative so far F/U AM labs. Follow-up pending COVID-19 Maintain aspiration precaution. Local wound care as directed Discussed with nursing staff Justicifation of Admission Dx: Justifications for Admission: Justification of Admission Dx: Yes NELIA JAMES MD Mar 20, 2020 07:59
[2020-03-20] MEDS: BUDESONIDE 0.5 MG/2 ML NEBU. NEB SCH ×2 (08:00→20:00)
[2020-03-20] MEDS: IPRATRPIUM/ALBUTEROL 0.5/2.5MG 3 ML NEBU. NEB SCH ×4 (08:00→20:00)
[2020-03-20] MEDS: PANTOPRAZOLE IV PUSH 40 MG VIAL. IVP SCH ×2 (08:04→17:14)
[2020-03-20] MEDS: cefTRIAXone IV Push 2 GM VIAL. IVP SCH (08:06)
[2020-03-20] MEDS: METOPROLOL TART IMMED RELEASE 25 MG TABLET. PO SCH ×2 (08:06→20:52)
[2020-03-20] MEDS: DULoxetine HCL 30 MG CAPSULE.DR PO SCH ×2 (08:06→20:51)
[2020-03-20] MEDS: LINAGLIPTIN 5 MG TABLET PO SCH (08:07)
[2020-03-20] MEDS: MONTELUKAST SODIUM 10 MG TABLET. PO SCH (08:07)
[2020-03-20] MEDS: oxyCODONE IR 5 MG TABLET PO PRN ×3 (08:07→20:51)
[2020-03-20] MEDS: INSULIN LISPRO 300 UNITS/3 ML VIAL. SQ SCH ×4 (08:34→20:55)
--- NOTE | 2020-03-20 09:47 | PDOC ---
PULMONARY PROGRESS NOTES Subjective on RA doing well GI bleed mental status improved no wheezing Vitals Vital Signs Date Time Temp Pulse Resp B/P (MAP) Pulse Ox O2 Delivery O2 Flow Rate FiO2 03/20/20 09:25 16 99 Room Air 03/20/20 09:00 84 103/69 (80) 03/20/20 08:00 97.9 97.9 General: Alert, No acute distress Lungs: Clear Cardiovascular: S1 Abdomen: Soft, Other (obese) Neuro Exam: Alert Extremities: Other (1=edema) Labs Laboratory Tests Test 03/18/20 11:37 03/18/20 14:20 03/18/20 15:30 03/18/20 17:53 Glucose (Fingerstick) 132 mg/dL (70-99) 78 mg/dL (70-99) White Blood Count 9.6 x10^3/uL (4.0-11.0) Red Blood Count 3.29 x10^6/uL (4.30-5.70) Hemoglobin 9.5 g/dL (13.0-17.5) Hematocrit 28.4 % (39.0-53.0) Mean Corpuscular Volume 87 fL (79-100) Mean Corpuscular Hemoglobin 29 pg (25-35) Mean Corpuscular Hemoglobin Concent 34 g/dL (31-37) Red Cell Distribution Width 17.3 % (11.5-14.5) Platelet Count 104 x10^3/uL (140-400) Prothrombin Time 18.2 SEC (11.7-14.0) Prothromb Time International Ratio 1.5 (0.8-1.1) Sodium Level 129 mmol/L (136-145) Potassium Level 4.3 mmol/L (3.5-5.1) Chloride Level 97 mmol/L (98-107) Carbon Dioxide Level 15 mmol/L (21-32) Anion Gap 17 (6-14) Blood Urea Nitrogen 30 mg/dL (8-26) Creatinine 2.1 mg/dL (0.7-1.3) Estimated GFR (Cockcroft-Gault) 32.4 Glucose Level 87 mg/dL (70-99) Lactic Acid Level 7.2 mmol/L (0.4-2.0) Calcium Level 7.1 mg/dL (8.5-10.1) Magnesium Level 1.5 mg/dL (1.8-2.4) Total Bilirubin 1.3 mg/dL (0.2-1.0) Direct Bilirubin 0.8 mg/dL (0.0-0.2) Aspartate Amino Transf (AST/SGOT) 92 U/L (15-37) Alanine Aminotransferase (ALT/SGPT) 54 U/L (16-63) Alkaline Phosphatase 287 U/L (46-116) Total Protein 5.0 g/dL (6.4-8.2) Albumin 1.4 g/dL (3.4-5.0) O2 Saturation 96 % (92-99) Arterial Blood pH 7.47 (7.35-7.45) Arterial Blood pCO2 at Patient Temp 17 mmHg (35-46) Arterial Blood pO2 at Patient Temp 91 mmHg (65-108) Arterial Blood HCO3 12 mmol/L (21-28) Arterial Blood Base Excess -10 mmol/L (-3-3) FiO2 5l nc Test 03/18/20 18:00 03/18/20 21:17 03/19/20 05:25 03/19/20 12:46 Lactic Acid Level 5.9 mmol/L (0.4-2.0) Glucose (Fingerstick) 125 mg/dL (70-99) 227 mg/dL (70-99) White Blood Count 9.8 x10^3/uL (4.0-11.0) Red Blood Count 2.35 x10^6/uL (4.30-5.70) Hemoglobin 6.9 g/dL (13.0-17.5) Hematocrit 20.1 % (39.0-53.0) Mean Corpuscular Volume 85 fL (79-100) Mean Corpuscular Hemoglobin 29 pg (25-35) Mean Corpuscular Hemoglobin Concent 34 g/dL (31-37) Red Cell Distribution Width 17.3 % (11.5-14.5) Platelet Count 55 x10^3/uL (140-400) Neutrophils (%) (Auto) 88 % (31-73) Lymphocytes (%) (Auto) 8 % (24-48) Monocytes (%) (Auto) 3 % (0-9) Eosinophils (%) (Auto) 0 % (0-3) Basophils (%) (Auto) 0 % (0-3) Neutrophils # (Auto) 8.6 x10^3/uL (1.8-7.7) Lymphocytes # (Auto) 0.8 x10^3/uL (1.0-4.8) Monocytes # (Auto) 0.3 x10^3/uL (0.0-1.1) Eosinophils # (Auto) 0.0 x10^3/uL (0.0-0.7) Basophils # (Auto) 0.0 x10^3/uL (0.0-0.2) Fibrinogen 376 mg/dL (200-440) D-Dimer (Jackelin) > 20.00 ug/mlFEU Sodium Level 131 mmol/L (136-145) Potassium Level 4.0 mmol/L (3.5-5.1) Chloride Level 97 mmol/L (98-107) Carbon Dioxide Level 23 mmol/L (21-32) Anion Gap 11 (6-14) Blood Urea Nitrogen 30 mg/dL (8-26) Creatinine 1.9 mg/dL (0.7-1.3) Estimated GFR (Cockcroft-Gault) 36.3 BUN/Creatinine Ratio 16 (6-20) Glucose Level 202 mg/dL (70-99) Calcium Level 7.0 mg/dL (8.5-10.1) Ferritin 2072 ng/mL (26-388) Total Bilirubin 1.0 mg/dL (0.2-1.0) Aspartate Amino Transf (AST/SGOT) 42 U/L (15-37) Alanine Aminotransferase (ALT/SGPT) 36 U/L (16-63) Alkaline Phosphatase 169 U/L (46-116) Total Protein 4.9 g/dL (6.4-8.2) Albumin 1.6 g/dL (3.4-5.0) Albumin/Globulin Ratio 0.5 (1.0-1.7) Test 03/19/20 15:25 03/19/20 16:32 03/19/20 17:39 03/19/20 20:36 Lactic Acid Level 1.3 mmol/L (0.4-2.0) Glucose (Fingerstick) 281 mg/dL (70-99) 242 mg/dL (70-99) Hemoglobin 8.0 g/dL (13.0-17.5) Test 03/20/20 06:35 03/20/20 08:13 White Blood Count 12.6 x10^3/uL (4.0-11.0) Red Blood Count 2.58 x10^6/uL (4.30-5.70) Hemoglobin 7.4 g/dL (13.0-17.5) Hematocrit 21.7 % (39.0-53.0) Mean Corpuscular Volume 84 fL (79-100) Mean Corpuscular Hemoglobin 29 pg (25-35) Mean Corpuscular Hemoglobin Concent 34 g/dL (31-37) Red Cell Distribution Width 17.4 % (11.5-14.5) Platelet Count 63 x10^3/uL (140-400) Neutrophils (%) (Auto) 91 % (31-73) Lymphocytes (%) (Auto) 5 % (24-48) Monocytes (%) (Auto) 4 % (0-9) Eosinophils (%) (Auto) 0 % (0-3) Basophils (%) (Auto) 0 % (0-3) Neutrophils # (Auto) 11.5 x10^3/uL (1.8-7.7) Lymphocytes # (Auto) 0.6 x10^3/uL (1.0-4.8) Monocytes # (Auto) 0.4 x10^3/uL (0.0-1.1) Eosinophils # (Auto) 0.0 x10^3/uL (0.0-0.7) Basophils # (Auto) 0.0 x10^3/uL (0.0-0.2) Sodium Level 130 mmol/L (136-145) Potassium Level 3.9 mmol/L (3.5-5.1) Chloride Level 99 mmol/L (98-107) Carbon Dioxide Level 26 mmol/L (21-32) Anion Gap 5 (6-14) Blood Urea Nitrogen 30 mg/dL (8-26) Creatinine 1.5 mg/dL (0.7-1.3) Estimated GFR (Cockcroft-Gault) 47.7 BUN/Creatinine Ratio 20 (6-20) Glucose Level 233 mg/dL (70-99) Calcium Level 7.4 mg/dL (8.5-10.1) Total Bilirubin 0.6 mg/dL (0.2-1.0) Aspartate Amino Transf (AST/SGOT) 39 U/L (15-37) Alanine Aminotransferase (ALT/SGPT) 38 U/L (16-63) Alkaline Phosphatase 153 U/L (46-116) Total Protein 4.7 g/dL (6.4-8.2) Albumin 1.4 g/dL (3.4-5.0) Albumin/Globulin Ratio 0.4 (1.0-1.7) Glucose (Fingerstick) 217 mg/dL (70-99) Laboratory Tests Test 03/19/20 12:46 03/19/20 15:25 03/19/20 16:32 03/19/20 17:39 Glucose (Fingerstick) 227 mg/dL (70-99) 281 mg/dL (70-99) Lactic Acid Level 1.3 mmol/L (0.4-2.0) Hemoglobin 8.0 g/dL (13.0-17.5) Test 03/19/20 20:36 03/20/20 06:35 03/20/20 08:13 Glucose (Fingerstick) 242 mg/dL (70-99) 217 mg/dL (70-99) White Blood Count 12.6 x10^3/uL (4.0-11.0) Red Blood Count 2.58 x10^6/uL (4.30-5.70) Hemoglobin 7.4 g/dL (13.0-17.5) Hematocrit 21.7 % (39.0-53.0) Mean Corpuscular Volume 84 fL (79-100) Mean Corpuscular Hemoglobin 29 pg (25-35) Mean Corpuscular Hemoglobin Concent 34 g/dL (31-37) Red Cell Distribution Width 17.4 % (11.5-14.5) Platelet Count 63 x10^3/uL (140-400) Neutrophils (%) (Auto) 91 % (31-73) Lymphocytes (%) (Auto) 5 % (24-48) Monocytes (%) (Auto) 4 % (0-9) Eosinophils (%) (Auto) 0 % (0-3) Basophils (%) (Auto) 0 % (0-3) Neutrophils # (Auto) 11.5 x10^3/uL (1.8-7.7) Lymphocytes # (Auto) 0.6 x10^3/uL (1.0-4.8) Monocytes # (Auto) 0.4 x10^3/uL (0.0-1.1) Eosinophils # (Auto) 0.0 x10^3/uL (0.0-0.7) Basophils # (Auto) 0.0 x10^3/uL (0.0-0.2) Sodium Level 130 mmol/L (136-145) Potassium Level 3.9 mmol/L (3.5-5.1) Chloride Level 99 mmol/L (98-107) Carbon Dioxide Level 26 mmol/L (21-32) Anion Gap 5 (6-14) Blood Urea Nitrogen 30 mg/dL (8-26) Creatinine 1.5 mg/dL (0.7-1.3) Estimated GFR (Cockcroft-Gault) 47.7 BUN/Creatinine Ratio 20 (6-20) Glucose Level 233 mg/dL (70-99) Calcium Level 7.4 mg/dL (8.5-10.1) Total Bilirubin 0.6 mg/dL (0.2-1.0) Aspartate Amino Transf (AST/SGOT) 39 U/L (15-37) Alanine Aminotransferase (ALT/SGPT) 38 U/L (16-63) Alkaline Phosphatase 153 U/L (46-116) Total Protein 4.7 g/dL (6.4-8.2) Albumin 1.4 g/dL (3.4-5.0) Albumin/Globulin Ratio 0.4 (1.0-1.7) Medications Active Scripts Medications Dose Route/Sig Max Daily Dose Days Date Category Dose Instructions Etodolac 400 Mg Tablet 1 Tab PO BID 03/16/20 Reported Ondansetron Hcl 8 Mg Tablet 8 Mg PO BID PRN 03/16/20 Reported Oxycodone Hcl Immed.release (Oxycodone Hcl) 15 Mg Tablet 15 Mg PO PRN Q6HRS PRN 03/16/20 Reported Miralax (Polyethylene Glycol 3350) 17 Gm Powd.pack 1 Pkt PO PRN DAILY PRN 04/17/18 Rx Montelukast Sodium Tablet (Montelukast Sodium) 10 Mg Tablet 10 Mg PO DAILY 04/14/18 Reported Rosemarieaglchristina Fabian U-100 (Insulin Glargine,Hum.rec.anlog) 100 Unit/1 Ml Insuln.pen 50 Unit SQ HS 04/14/18 Reported Prilosec Otc (Omeprazole Magnesium) 20 Mg Tablet.dr 1 Tab PO DAILY 02/08/16 Reported Novolog Flexpen (Insulin Aspart) 100 Unit/1 Ml Insuln.pen 1 Unit SQ 11/17/15 Reported 15-20 UNITS WITH MEALS TO MAX OF 80 UNITS DAILY Atorvastatin Calcium 20 Mg Tablet 1 Tab PO DAILY 11/17/15 Reported Januvia (Sitagliptin Phosphate) 50 Mg Tablet 1 Tab PO DAILY 11/17/15 Reported Tizanidine Hcl 4 Mg Tablet 1 Tab PO Q6HRS PRN 11/17/15 Reported can have 1-2 tabs Lidoderm (Lidocaine) 700 Mg Adh..patch 1 Patch TP DAILY PRN 11/17/15 Reported Ativan (Lorazepam) 1 Mg Tablet 1 Mg PO BID PRN 11/17/15 Reported Amlodipine Besylate 10 Mg Tablet 10 Mg PO DAILY 11/17/15 Reported Atenolol 25 Mg Tablet 1 Tab PO DAILY 11/17/15 Reported Voltaren (Diclofenac Sodium) 100 Gm Gel..gram. 1 Gm TP QID PRN 11/17/15 Reported Ventolin Hfa Inhaler (Albuterol Sulfate) 18 Gm Hfa.aer.ad 2 Puff IH PRN Q4-6HRS 11/17/15 Reported Cymbalta (Duloxetine Hcl) 60 Mg Capsule.dr 60 Mg PO BID 11/17/15 Reported Impression . 1. Acute respiratory failure with audible upper airway wheezing. Resolved. Etiology not so obvious. Could be related to reactive airway disease. Other less likely possibility would be a transfusion related acute reaction. The patient has no known asthma. less likely tracheal stenosis, Possibility of vocal cord dysfunction secondary to anxiety would also be a consideration. 2. Anemia, status post transfusion.on going GI bleed 3. Hypoglycemic encephalopathy, present on admission , improved 4. Chronic kidney disease. 5. Abnormal ct chest with basal atelectasis/ vs pneumonia 6. Liver mass vs abscess 7. Fever, COVID P 8. Abnormal D-Dimer , could be related to Liver abscess vs cancer. on RA. no suspicion for PE, Pending dopplers Plan . 1. pulmonary samuel better 2. off Nasal canula, off BIPAP 3. We will continue DuoNebs. 4. Pulmicort nebulizer. 5. Tx PRN, GI rec 6. Continue antibiotics. 7. will need liver Bx 8. We will monitor for any further fever. The patient has been tested COVID negative x 3 recently. Discussed with RN and Dr. Duval. 9. dopplers lower extremity P RAHEEM GAMA MD Mar 20, 2020 09:47
[2020-03-20] MEDS: amLODIPine BESYLATE 10 MG TABLET PO SCH (10:10)
--- NOTE | 2020-03-20 10:35 | PDOC2 ---
CONSULT Date of Consult Date of Consult DATE: 03/20/20 TIME: 10:31 Reason for Consult Reason for Consult: Liver mass Referring Physician Referring Physician: Angie Identification/Chief Complaint Chief Complaint Would like his Hernandez catheter out Source Source: Chart review, Patient History of Present Illness Reason for Visit: 59-year-old male who was found his home down confused. Brought to the emergency department for evaluation was found to have hyponatremia. CT scan of the abdomen showed a possible mass of the liver versus fluid collection versus abscess. Pertinent history is that he was recently hospitalized at [facility] for cholecystitis underwent laparoscopic cholecystectomy it sounds like there was a problem with the procedure he developed a fluid collection which had to be drained developed a second fluid collection which needed draining around the liver had a prolonged hospital course. Currently he is feeling well has no complaints other than he wants his Hernandez catheter out and would like to eat Past Medical History Cardiovascular: HTN, Hyperlipidemia Pulmonary: COPD CENTRAL NERVOUS SYSTEM: Carpal Tunnel Syndrome GI: GERD, Peptic Ulcer disease (recently noted prepyloric ulcers in 03/10/2020 via EGD) Heme/Onc: Cancer (renal) Hepatobiliary: Other (liver hemangioma with biopsy) Psych: Anxiety Musculoskeletal: Osteoarthritis, Other (cervical stenosis; chronic opioid use) Renal/: Chronic renal insuff Endocrine: Diabetes (2) Dermatology: Other (foot ulcer) Past Surgical History Past Surgical History: Hernia Repair, Other (elbow surgery; left achilles repair; left nephrectomy, septoplasty; back surgery) Family History Family History: Coronary Artery Disease (father), Diabetes (sister), Hypertension (mother) Social History No ALCOHOL: none Drugs: None Lives: with Family Current Problem List Problem List Problems Medical Problems: (1) Acute kidney injury Status: Acute (2) Encephalopathy Status: Acute (3) Hypoglycemia Status: Acute (4) Hyponatremia Status: Acute (5) Seizure Status: Acute Current Medications Current Medications Current Medications Haloperidol Lactate (Haldol Inj) 5 mg 1X ONCE IM Last administered on 03/15/20at 19:30; Start 03/15/20 at 20:00; Stop 03/15/20 at 20:01; Status DC Diphenhydramine HCl (Benadryl) 50 mg 1X ONCE IM Last administered on 03/15/20at 19:30; Start 03/15/20 at 20:00; Stop 03/15/20 at 20:01; Status DC Lorazepam (Ativan Inj) 1 mg 1X ONCE IVP Last administered on 03/15/20at 20:55; Start 03/15/20 at 20:00; Stop 03/15/20 at 20:01; Status DC Dextrose (Dextrose 50%-Water Syringe) 25 gm 1X ONCE IV ; Start 03/15/20 at 21:30; Stop 03/15/20 at 21:23; Status DC Dextrose 1,000 ml @ 75 mls/hr 1X ONCE IV Last administered on 03/15/20at 21:03; Start 03/15/20 at 21:30; Stop 03/15/20 at 21:23; Status DC Sodium Chloride 154 meq/Dextrose 1,038.5 ml @ 75 mls/hr [id number] IV Last administered on 03/16/20at 12:30; Start 03/15/20 at 22:00; Stop 03/16/20 at 21:59; Status DC Ceftriaxone Sodium (Rocephin) 2 gm 1X ONCE IVP Last administered on 03/15/20at 22:36; Start 03/15/20 at 22:00; Stop 03/15/20 at 22:01; Status DC Ondansetron HCl (Zofran) 4 mg PRN Q8HRS PRN IV NAUSEA/VOMITING 1ST CHOICE; Start 03/15/20 at 21:30; Stop 03/16/20 at 20:48; Status DC Lorazepam (Ativan Inj) 2 mg 1X ONCE IVP Last administered on 03/15/20at 23:37; Start 03/15/20 at 23:45; Stop 03/15/20 at 23:46; Status DC Lorazepam (Ativan Inj) 1 mg PRN Q4HRS PRN IVP ANXIETY / AGITATION Last administered on 03/18/20at 12:08; Start 03/16/20 at 03:15 Amlodipine Besylate (Norvasc) 10 mg DAILY PO Last administered on 03/18/20at 09:57; Start 03/16/20 at 09:00 Atorvastatin Calcium (Lipitor) 20 mg QHS PO Last administered on 03/19/20at 20:31; Start 03/16/20 at 21:00 Diclofenac Sodium (Voltaren) 1 rama PRN QID PRN TP PAIN; Start 03/16/20 at 08:00 Lidocaine (Lidoderm) 1 patch PRN DAILY PRN TP TOPICAL PAIN; Start 03/16/20 at 08:00; Stop 03/17/20 at 07:16; Status DC Montelukast Sodium (Singulair) 10 mg DAILY PO Last administered on 03/20/20at 08:07; Start 03/16/20 at 09:00 Polyethylene Glycol (miraLAX PACKET) 17 gm PRN DAILY PRN PO CONSTIPATION; Start 03/16/20 at 08:00 Non-Formulary Medication (Albuterol Sulfate (Ventolin Hfa Inhaler)) 2 puff PRN Q4-6HRS IH ; Start 03/16/20 at 08:00; Status UNV Duloxetine HCl (Cymbalta) 60 mg BID PO Last administered on 03/20/20at 08:06; Start 03/16/20 at 09:00 Insulin Glargine (Lantus Syringe) 10 unit QHS SQ Last administered on 03/17/20at 22:17; Start 03/16/20 at 21:00; Stop 03/18/20 at 13:25; Status DC Pantoprazole Sodium (Protonix) 40 mg DAILYAC PO Last administered on 03/18/20at 04:58; Start 03/16/20 at 08:30; Stop 03/18/20 at 14:14; Status DC Linagliptin (Tradjenta) 5 mg DAILY PO Last administered on 03/20/20at 08:07; Start 03/16/20 at 09:00 Insulin Human Lispro (HumaLOG) 0-7 UNITS TIDACHC SQ Last administered on 03/20/20at 08:34; Start 03/16/20 at 11:30 Dextrose (Dextrose 50%-Water Syringe) 12.5 gm PRN Q15MIN PRN IV SEE COMMENTS; Start 03/16/20 at 08:00 Albuterol Sulfate (Ventolin Neb Soln) 2.5 mg PRN Q4HRS PRN NEB SHORTNESS OF BREATH; Start 03/16/20 at 08:30 Haloperidol Lactate (Haldol Inj) 5 mg PRN Q6HRS PRN IVP AGITATION Last administered on 03/16/20at 18:15; Start 03/16/20 at 10:45 Fentanyl Citrate (Fentanyl 2ml Vial) 25 mcg PRN Q3HRS PRN IVP MOD-SEVERE PAIN Last administered on 03/16/20at 12:33; Start 03/16/20 at 11:00; Stop 03/17/20 at 20:17; Status DC Diphenhydramine HCl (Benadryl) 25 mg PRN Q6HRS PRN IVP ITCHING Last administered on 03/16/20at 13:41; Start 03/16/20 at 13:45 Metoprolol Tartrate (Lopressor) 25 mg BID PO Last administered on 03/20/20at 08:06; Start 03/16/20 at 15:30 Ondansetron HCl (Zofran) 4 mg PRN Q4HRS PRN IV NAUSEA/VOMITING 1ST CHOICE; Start 03/16/20 at 21:00 Heparin Sodium (Porcine) (Heparin Sodium) 5,000 unit Q8HRS SQ Last administered on 03/18/20at 05:01; Start 03/16/20 at 22:00; Stop 03/18/20 at 14:34; Status DC Ceftriaxone Sodium (Rocephin) 1 gm Q24H IVP Last administered on 03/16/20at 21:35; Start 03/16/20 at 22:00; Stop 03/17/20 at 20:23; Status DC Acetaminophen (Tylenol Supp) 650 mg PRN Q6HRS PRN DC MILD PAIN / TEMP > 100.3'F Last administered on 03/17/20at 20:34; Start 03/16/20 at 23:00 Sodium Chloride 154 meq/Dextrose 1,038.5 ml @ 75 mls/hr [id number] IV Last administered on 03/17/20at 04:45; Start 03/17/20 at 04:45; Stop 03/17/20 at 13:10; Status DC Dextrose/Sodium Chloride 1,000 ml @ 150 mls/hr Q6H40M IV Last administered on 03/18/20at 02:00; Start 03/17/20 at 17:30; Stop 03/18/20 at 13:23; Status DC Atenolol (Tenormin) 25 mg DAILY PO ; Start 03/17/20 at 14:00; Stop 03/17/20 at 14:42; Status DC Lorazepam (Ativan) 1 mg PRN BID PRN PO ANXIETY / AGITATION Last administered on 03/17/20at 21:11; Start 03/17/20 at 14:00 Tizanidine HCl (Zanaflex) 4 mg PRN Q6HRS PRN PO MUSCLE PAIN; Start 03/17/20 at 14:00 Diclofenac Sodium (Voltaren) 75 mg BID PO ; Start 03/17/20 at 21:00; Stop 03/17/20 at 20:22; Status DC Non-Formulary Medication (Ondansetron Hcl ) 8 mg PRN BID PRN PO NAUSEA/VOMITING; Start 03/17/20 at 14:00; Stop 03/18/20 at 16:12; Status DC Oxycodone HCl (Roxicodone) 15 mg PRN Q6HRS PRN PO MODERATE TO SEVERE PAIN Last administered on 03/20/20at 08:07; Start 03/17/20 at 14:15 Metoprolol Tartrate (Lopressor Vial) 5 mg 1X ONCE IVP Last administered on 03/17/20at 19:51; Start 03/17/20 at 19:30; Stop 03/17/20 at 19:31; Status DC Metoprolol Tartrate (Lopressor) 25 mg 1X ONCE PO Last administered on 03/17/20at 21:12; Start 03/17/20 at 21:00; Stop 03/17/20 at 21:01; Status DC Fentanyl Citrate (Fentanyl 2ml Vial) 50 mcg PRN Q3HRS PRN IVP MOD-SEVERE PAIN Last administered on 03/18/20at 09:54; Start 03/17/20 at 20:30 Ketorolac Tromethamine (Toradol 15mg Vial) 15 mg 1X ONCE IVP Last administered on 03/17/20at 20:34; Start 03/17/20 at 20:15; Stop 03/17/20 at 20:22; Status DC Piperacillin Sod/ Tazobactam Sod (Zosyn Per Pharmacy) 1 each PRN DAILY PRN MC SEE COMMENTS; Start 03/17/20 at 20:30; Stop 03/18/20 at 13:08; Status DC Piperacillin Sod/ Tazobactam Sod 3.375 gm/Sodium Chloride 50 ml @ 100 mls/hr Q6H IV Last administered on 03/18/20at 08:37; Start 03/17/20 at 21:00; Stop 03/18/20 at 12:23; Status DC Albuterol/ Ipratropium (Duoneb) 3 ml RTQID NEB Last administered on 03/19/20at 20:00; Start 03/18/20 at 12:00 Methylprednisolone Sodium Succinate (SOLU-Medrol 125MG VIAL) 125 mg 1X ONCE IV Last administered on 03/18/20at 12:26; Start 03/18/20 at 13:00; Stop 03/18/20 at 13:01; Status DC Budesonide (Pulmicort) 0.5 mg RTBID NEB Last administered on 03/19/20at 20:00; Start 03/18/20 at 20:00 Meropenem 500 mg/ Sodium Chloride 50 ml @ 100 mls/hr Q6HRS IV Last administered on 03/20/20at 05:38; Start 03/18/20 at 13:30; Stop 03/20/20 at 07:33; Status DC Metoprolol Tartrate (Lopressor Vial) 5 mg 1X ONCE IVP Last administered on 03/18/20at 13:49; Start 03/18/20 at 13:15; Stop 03/18/20 at 13:16; Status DC Insulin Glargine (Lantus Syringe) 5 unit QHS SQ Last administered on 03/19/20at 20:32; Start 03/18/20 at 21:00 Furosemide (Lasix) 20 mg 1X ONCE IVP Last administered on 03/18/20at 14:23; Start 03/18/20 at 14:30; Stop 03/18/20 at 14:31; Status DC Pantoprazole Sodium (PROTONIX VIAL for IV PUSH) 40 mg BIDAC IVP Last administered on 03/20/20at 08:04; Start 03/18/20 at 16:30 Magnesium Sulfate 50 ml @ 25 mls/hr 1X ONCE IV Last administered on 03/18/20at 17:36; Start 03/18/20 at 16:00; Stop 03/18/20 at 17:59; Status DC Metoprolol Tartrate (Lopressor Vial) 5 mg PRN Q6HRS PRN IVP HYPERTENSION; Start 03/18/20 at 15:45 Albumin Human 500 ml @ 125 mls/hr PRN DAILY PRN IV SEE COMMENTS Last adm inistered on 03/18/20at 16:07; Start 03/18/20 at 15:45 Norepinephrine Bitartrate 8 mg/ Dextrose 258 ml @ 17.705 mls/ hr CONT PRN IV PER PROTOCOL; Start 03/18/20 at 15:45 Ondansetron HCl (Zofran Odt) 4 mg PRN BID PRN PO NAUSEA/VOMITING; Start 03/18/20 at 16:15; Stop 03/18/20 at 16:12; Status DC Ondansetron HCl (Zofran Odt) 8 mg PRN BID PRN PO NAUSEA/VOMITING; Start 03/18/20 at 16:15 Ceftriaxone Sodium (Rocephin) 2 gm Q24H IVP Last administered on 03/20/20at 08:06; Start 03/20/20 at 08:00 Active Scripts Active Miralax (Polyethylene Glycol 3350) 17 Gm Powd.pack 1 Pkt PO PRN DAILY PRN Reported Etodolac 400 Mg Tablet 1 Tab PO BID Ondansetron Hcl 8 Mg Tablet 8 Mg PO BID PRN Oxycodone Hcl Immed.release (Oxycodone Hcl) 15 Mg Tablet 15 Mg PO PRN Q6HRS PRN Montelukast Sodium Tablet (Montelukast Sodium) 10 Mg Tablet 10 Mg PO DAILY Basaglar Kwikpen U-100 (Insulin Glargine,Hum.rec.anlog) 100 Unit/1 Ml Insuln.pen 50 Unit SQ HS Prilosec Otc (Omeprazole Magnesium) 20 Mg Tablet.dr 1 Tab PO DAILY Novolog Flexpen (Insulin Aspart) 100 Unit/1 Ml Insuln.pen 1 Unit SQ 15-20 UNITS WITH MEALS TO MAX OF 80 UNITS DAILY Atorvastatin Calcium 20 Mg Tablet 1 Tab PO DAILY Januvia (Sitagliptin Phosphate) 50 Mg Tablet 1 Tab PO DAILY Tizanidine Hcl 4 Mg Tablet 1 Tab PO Q6HRS PRN can have 1-2 tabs Lidoderm (Lidocaine) 700 Mg Adh..patch 1 Patch TP DAILY PRN Ativan (Lorazepam) 1 Mg Tablet 1 Mg PO BID PRN Amlodipine Besylate 10 Mg Tablet 10 Mg PO DAILY Atenolol 25 Mg Tablet 1 Tab PO DAILY Voltaren (Diclofenac Sodium) 100 Gm Gel..gram. 1 Gm TP QID PRN Ventolin Hfa Inhaler (Albuterol Sulfate) 18 Gm Hfa.aer.ad 2 Puff IH PRN Q4-6HRS Cymbalta (Duloxetine Hcl) 60 Mg Capsule.dr 60 Mg PO BID Allergies Allergies: Coded Allergies: clindamycin (Verified Allergy, Intermediate, 02/17/16) levofloxacin (Verified Allergy, Intermediate, 01/06/17) morphine (Verified Allergy, Intermediate, 02/17/16) prednisone (Verified Allergy, Intermediate, 01/06/17) pramipexole (Verified Adverse Reaction, Intermediate, 02/17/16) muscle and joint aches Physical Exam General: Alert, Oriented X3, Cooperative, No acute distress HEENT: Atraumatic Lungs: Clear to auscultation, Normal air movement Heart: Regular rate Abdomen: Normal bowel sounds, Soft, No tenderness Extremities: No edema Skin: No significant lesion Neuro: Normal speech Psych/Mental Status: Mental status NL Vitals VITALS Vital Signs Date Time Temp Pulse Resp B/P (MAP) Pulse Ox O2 Delivery O2 Flow Rate FiO2 03/20/20 10:10 76 106/66 03/20/20 10:00 16 100 Room Air 03/20/20 08:00 97.9 97.9 Labs Labs Laboratory Tests Test 03/18/20 11:37 03/18/20 14:20 03/18/20 15:30 03/18/20 17:53 Glucose (Fingerstick) 132 mg/dL (70-99) 78 mg/dL (70-99) White Blood Count 9.6 x10^3/uL (4.0-11.0) Red Blood Count 3.29 x10^6/uL (4.30-5.70) Hemoglobin 9.5 g/dL (13.0-17.5) Hematocrit 28.4 % (39.0-53.0) Mean Corpuscular Volume 87 fL (79-100) Mean Corpuscular Hemoglobin 29 pg (25-35) Mean Corpuscular Hemoglobin Concent 34 g/dL (31-37) Red Cell Distribution Width 17.3 % (11.5-14.5) Platelet Count 104 x10^3/uL (140-400) Prothrombin Time 18.2 SEC (11.7-14.0) Prothromb Time International Ratio 1.5 (0.8-1.1) Sodium Level 129 mmol/L (136-145) Potassium Level 4.3 mmol/L (3.5-5.1) Chloride Level 97 mmol/L (98-107) Carbon Dioxide Level 15 mmol/L (21-32) Anion Gap 17 (6-14) Blood Urea Nitrogen 30 mg/dL (8-26) Creatinine 2.1 mg/dL (0.7-1.3) Estimated GFR (Cockcroft-Gault) 32.4 Glucose Level 87 mg/dL (70-99) Lactic Acid Level 7.2 mmol/L (0.4-2.0) Calcium Level 7.1 mg/dL (8.5-10.1) Magnesium Level 1.5 mg/dL (1.8-2.4) Total Bilirubin 1.3 mg/dL (0.2-1.0) Direct Bilirubin 0.8 mg/dL (0.0-0.2) Aspartate Amino Transf (AST/SGOT) 92 U/L (15-37) Alanine Aminotransferase (ALT/SGPT) 54 U/L (16-63) Alkaline Phosphatase 287 U/L (46-116) Total Protein 5.0 g/dL (6.4-8.2) Albumin 1.4 g/dL (3.4-5.0) O2 Saturation 96 % (92-99) Arterial Blood pH 7.47 (7.35-7.45) Arterial Blood pCO2 at Patient Temp 17 mmHg (35-46) Arterial Blood pO2 at Patient Temp 91 mmHg (65-108) Arterial Blood HCO3 12 mmol/L (21-28) Arterial Blood Base Excess -10 mmol/L (-3-3) FiO2 5l nc Test 03/18/20 18:00 03/18/20 21:17 03/19/20 05:25 03/19/20 12:46 Lactic Acid Level 5.9 mmol/L (0.4-2.0) Glucose (Fingerstick) 125 mg/dL (70-99) 227 mg/dL (70-99) White Blood Count 9.8 x10^3/uL (4.0-11.0) Red Blood Count 2.35 x10^6/uL (4.30-5.70) Hemoglobin 6.9 g/dL (13.0-17.5) Hematocrit 20.1 % (39.0-53.0) Mean Corpuscular Volume 85 fL (79-100) Mean Corpuscular Hemoglobin 29 pg (25-35) Mean Corpuscular Hemoglobin Concent 34 g/dL (31-37) Red Cell Distribution Width 17.3 % (11.5-14.5) Platelet Count 55 x10^3/uL (140-400) Neutrophils (%) (Auto) 88 % (31-73) Lymphocytes (%) (Auto) 8 % (24-48) Monocytes (%) (Auto) 3 % (0-9) Eosinophils (%) (Auto) 0 % (0-3) Basophils (%) (Auto) 0 % (0-3) Neutrophils # (Auto) 8.6 x10^3/uL (1.8-7.7) Lymphocytes # (Auto) 0.8 x10^3/uL (1.0-4.8) Monocytes # (Auto) 0.3 x10^3/uL (0.0-1.1) Eosinophils # (Auto) 0.0 x10^3/uL (0.0-0.7) Basophils # (Auto) 0.0 x10^3/uL (0.0-0.2) Fibrinogen 376 mg/dL (200-440) D-Dimer (Jackelin) > 20.00 ug/mlFEU Sodium Level 131 mmol/L (136-145) Potassium Level 4.0 mmol/L (3.5-5.1) Chloride Level 97 mmol/L (98-107) Carbon Dioxide Level 23 mmol/L (21-32) Anion Gap 11 (6-14) Blood Urea Nitrogen 30 mg/dL (8-26) Creatinine 1.9 mg/dL (0.7-1.3) Estimated GFR (Cockcroft-Gault) 36.3 BUN/Creatinine Ratio 16 (6-20) Glucose Level 202 mg/dL (70-99) Calcium Level 7.0 mg/dL (8.5-10.1) Ferritin 2072 ng/mL (26-388) Total Bilirubin 1.0 mg/dL (0.2-1.0) Aspartate Amino Transf (AST/SGOT) 42 U/L (15-37) Alanine Aminotransferase (ALT/SGPT) 36 U/L (16-63) Alkaline Phosphatase 169 U/L (46-116) Total Protein 4.9 g/dL (6.4-8.2) Albumin 1.6 g/dL (3.4-5.0) Albumin/Globulin Ratio 0.5 (1.0-1.7) Test 03/19/20 15:25 03/19/20 16:32 03/19/20 17:39 03/19/20 20:36 Lactic Acid Level 1.3 mmol/L (0.4-2.0) Glucose (Fingerstick) 281 mg/dL (70-99) 242 mg/dL (70-99) Hemoglobin 8.0 g/dL (13.0-17.5) Test 03/20/20 06:35 03/20/20 08:13 White Blood Count 12.6 x10^3/uL (4.0-11.0) Red Blood Count 2.58 x10^6/uL (4.30-5.70) Hemoglobin 7.4 g/dL (13.0-17.5) Hematocrit 21.7 % (39.0-53.0) Mean Corpuscular Volume 84 fL (79-100) Mean Corpuscular Hemoglobin 29 pg (25-35) Mean Corpuscular Hemoglobin Concent 34 g/dL (31-37) Red Cell Distribution Width 17.4 % (11.5-14.5) Platelet Count 63 x10^3/uL (140-400) Neutrophils (%) (Auto) 91 % (31-73) Lymphocytes (%) (Auto) 5 % (24-48) Monocytes (%) (Auto) 4 % (0-9) Eosinophils (%) (Auto) 0 % (0-3) Basophils (%) (Auto) 0 % (0-3) Neutrophils # (Auto) 11.5 x10^3/uL (1.8-7.7) Lymphocytes # (Auto) 0.6 x10^3/uL (1.0-4.8) Monocytes # (Auto) 0.4 x10^3/uL (0.0-1.1) Eosinophils # (Auto) 0.0 x10^3/uL (0.0-0.7) Basophils # (Auto) 0.0 x10^3/uL (0.0-0.2) Sodium Level 130 mmol/L (136-145) Potassium Level 3.9 mmol/L (3.5-5.1) Chloride Level 99 mmol/L (98-107) Carbon Dioxide Level 26 mmol/L (21-32) Anion Gap 5 (6-14) Blood Urea Nitrogen 30 mg/dL (8-26) Creatinine 1.5 mg/dL (0.7-1.3) Estimated GFR (Cockcroft-Gault) 47.7 BUN/Creatinine Ratio 20 (6-20) Glucose Level 233 mg/dL (70-99) Calcium Level 7.4 mg/dL (8.5-10.1) Total Bilirubin 0.6 mg/dL (0.2-1.0) Aspartate Amino Transf (AST/SGOT) 39 U/L (15-37) Alanine Aminotransferase (ALT/SGPT) 38 U/L (16-63) Alkaline Phosphatase 153 U/L (46-116) Total Protein 4.7 g/dL (6.4-8.2) Albumin 1.4 g/dL (3.4-5.0) Albumin/Globulin Ratio 0.4 (1.0-1.7) Glucose (Fingerstick) 217 mg/dL (70-99) Laboratory Tests Test 03/19/20 12:46 03/19/20 15:25 03/19/20 16:32 03/19/20 17:39 Glucose (Fingerstick) 227 mg/dL (70-99) 281 mg/dL (70-99) Lactic Acid Level 1.3 mmol/L (0.4-2.0) Hemoglobin 8.0 g/dL (13.0-17.5) Test 03/19/20 20:36 03/20/20 06:35 03/20/20 08:13 Glucose (Fingerstick) 242 mg/dL (70-99) 217 mg/dL (70-99) White Blood Count 12.6 x10^3/uL (4.0-11.0) Red Blood Count 2.58 x10^6/uL (4.30-5.70) Hemoglobin 7.4 g/dL (13.0-17.5) Hematocrit 21.7 % (39.0-53.0) Mean Corpuscular Volume 84 fL (79-100) Mean Corpuscular Hemoglobin 29 pg (25-35) Mean Corpuscular Hemoglobin Concent 34 g/dL (31-37) Red Cell Distribution Width 17.4 % (11.5-14.5) Platelet Count 63 x10^3/uL (140-400) Neutrophils (%) (Auto) 91 % (31-73) Lymphocytes (%) (Auto) 5 % (24-48) Monocytes (%) (Auto) 4 % (0-9) Eosinophils (%) (Auto) 0 % (0-3) Basophils (%) (Auto) 0 % (0-3) Neutrophils # (Auto) 11.5 x10^3/uL (1.8-7.7) Lymphocytes # (Auto) 0.6 x10^3/uL (1.0-4.8) Monocytes # (Auto) 0.4 x10^3/uL (0.0-1.1) Eosinophils # (Auto) 0.0 x10^3/uL (0.0-0.7) Basophils # (Auto) 0.0 x10^3/uL (0.0-0.2) Sodium Level 130 mmol/L (136-145) Potassium Level 3.9 mmol/L (3.5-5.1) Chloride Level 99 mmol/L (98-107) Carbon Dioxide Level 26 mmol/L (21-32) Anion Gap 5 (6-14) Blood Urea Nitrogen 30 mg/dL (8-26) Creatinine 1.5 mg/dL (0.7-1.3) Estimated GFR (Cockcroft-Gault) 47.7 BUN/Creatinine Ratio 20 (6-20) Glucose Level 233 mg/dL (70-99) Calcium Level 7.4 mg/dL (8.5-10.1) Total Bilirubin 0.6 mg/dL (0.2-1.0) Aspartate Amino Transf (AST/SGOT) 39 U/L (15-37) Alanine Aminotransferase (ALT/SGPT) 38 U/L (16-63) Alkaline Phosphatase 153 U/L (46-116) Total Protein 4.7 g/dL (6.4-8.2) Albumin 1.4 g/dL (3.4-5.0) Albumin/Globulin Ratio 0.4 (1.0-1.7) Images Images CT per history of present illness Assessment/Plan Assessment/Plan CT findings most likely fluid collection from his previous procedures intrahepatic biloma We will consult IR for evaluation and possible drainage percutaneously, unlikely to be a malignancy secondary to not being present at the time of his previous cholecystectomy Continue supportive care DAKSHA SUMNER MD Mar 20, 2020 10:35
--- NOTE | 2020-03-20 12:45 | PDOC ---
PROGRESS NOTES Subjective Subjective Mental status improved, denied any chest pain Objective Objective Vital Signs Date Time Temp Pulse Resp B/P (MAP) Pulse Ox O2 Delivery O2 Flow Rate FiO2 03/20/20 12:00 97.6 77 20 102/67 (79) 100 Room Air 97.6 Intake and Output 03/20/20 07:00 Intake Total 1404 ml Output Total 1710 ml Balance -306 ml Intake Oral 1354 ml Blood Product IV Normal Saline Flush 50 ml Output Urine Total 1710 ml Physical Exam Abdomen: Normal bowel sounds, Soft, No tenderness Heart: Regular rate Extremities: No edema General: Alert, Oriented X3, Cooperative, No acute distress HEENT: Atraumatic Lungs: Clear to auscultation, Normal air movement MUSCULOSKELETAL: No swelling Neuro: Normal speech Psych/Mental Status: Mental status NL Skin: No significant lesion Assessment Assessment 1. Acute on chronic diastolic CHF/pleural effusion: multifactorial induced by anemia, hypoalbuminemia and renal failure. s/p transfusion. EF and WM nml. Better compensated today. 2. Metabolic encephalopathy; improving 3. Sepsis/fever, treat per ID team. 4. Acute respiratory failure, improved. COVID test pending. Pulmonary team following. 5. Mild transaminitis with hepatic mass: GI following 6. S/P lap jonelle with bile leak: S/P ERCP with biliary stent placement at [facility] 7. COLBY on CKD with hyponatremia: nephrology following 8. Normocytic anemia with GI bleed (melena/hematochezia): s/p transfusion 9. Recently noted PUD: prepyloric ulcers via EGD 03/10/2020 10. Hx of left nephrectomy r/t renal CA 11. HTN: controlled 12. DM2 with hypoglycemia 13. HLP 13. Mild troponin elevation: 0.085, no EKG chnages no cardiac symptoms. Type 2 demand ischemia 14. Reactive sinus tachycardia Plan Plan of Care Problems Medical Problems: (1) Acute kidney injury Status: Acute (2) Encephalopathy Status: Acute (3) Hypoglycemia Status: Acute (4) Hyponatremia Status: Acute (5) Seizure Status: Acute Comment Review of Relevant I have reviewed the following items clarisse (where applicable) has been applied. Labs Laboratory Tests Test 03/19/20 12:46 03/19/20 15:25 03/19/20 16:32 03/19/20 17:39 Glucose (Fingerstick) 227 mg/dL (70-99) 281 mg/dL (70-99) Lactic Acid Level 1.3 mmol/L (0.4-2.0) Hemoglobin 8.0 g/dL (13.0-17.5) Test 03/19/20 20:36 03/20/20 06:35 03/20/20 08:13 03/20/20 12:00 Glucose (Fingerstick) 242 mg/dL (70-99) 217 mg/dL (70-99) White Blood Count 12.6 x10^3/uL (4.0-11.0) Red Blood Count 2.58 x10^6/uL (4.30-5.70) Hemoglobin 7.4 g/dL (13.0-17.5) 7.4 g/dL (13.0-17.5) Hematocrit 21.7 % (39.0-53.0) Mean Corpuscular Volume 84 fL (79-100) Mean Corpuscular Hemoglobin 29 pg (25-35) Mean Corpuscular Hemoglobin Concent 34 g/dL (31-37) Red Cell Distribution Width 17.4 % (11.5-14.5) Platelet Count 63 x10^3/uL (140-400) Neutrophils (%) (Auto) 91 % (31-73) Lymphocytes (%) (Auto) 5 % (24-48) Monocytes (%) (Auto) 4 % (0-9) Eosinophils (%) (Auto) 0 % (0-3) Basophils (%) (Auto) 0 % (0-3) Neutrophils # (Auto) 11.5 x10^3/uL (1.8-7.7) Lymphocytes # (Auto) 0.6 x10^3/uL (1.0-4.8) Monocytes # (Auto) 0.4 x10^3/uL (0.0-1.1) Eosinophils # (Auto) 0.0 x10^3/uL (0.0-0.7) Basophils # (Auto) 0.0 x10^3/uL (0.0-0.2) Sodium Level 130 mmol/L (136-145) Potassium Level 3.9 mmol/L (3.5-5.1) Chloride Level 99 mmol/L (98-107) Carbon Dioxide Level 26 mmol/L (21-32) Anion Gap 5 (6-14) Blood Urea Nitrogen 30 mg/dL (8-26) Creatinine 1.5 mg/dL (0.7-1.3) Estimated GFR (Cockcroft-Gault) 47.7 BUN/Creatinine Ratio 20 (6-20) Glucose Level 233 mg/dL (70-99) Calcium Level 7.4 mg/dL (8.5-10.1) Total Bilirubin 0.6 mg/dL (0.2-1.0) Aspartate Amino Transf (AST/SGOT) 39 U/L (15-37) Alanine Aminotransferase (ALT/SGPT) 38 U/L (16-63) Alkaline Phosphatase 153 U/L (46-116) Total Protein 4.7 g/dL (6.4-8.2) Albumin 1.4 g/dL (3.4-5.0) Albumin/Globulin Ratio 0.4 (1.0-1.7) Test 03/20/20 12:10 Glucose (Fingerstick) 142 mg/dL (70-99) Microbiology 03/16/20 Blood Culture - Preliminary, Resulted NO GROWTH AFTER 4 DAYS Medications Current Medications Ceftriaxone Sodium (Rocephin) 2 gm Q24H IVP Last administered on 03/20/20at 08:06; Start 03/20/20 at 08:00 Vitals/I & O Vital Sign - Last 24 Hours 03/19/20 03/19/20 03/19/20 03/19/20 13:00 14:00 15:00 16:00 Temp 96.9 96.9 Pulse 90 85 79 89 Resp 21 15 17 19 B/P (MAP) 110/62 (78) 95/57 (70) 96/58 (71) 121/70 (87) Pulse Ox 99 98 98 98 O2 Delivery Room Air Room Air Room Air Room Air 03/19/20 03/19/20 03/19/20 03/19/20 16:00 17:00 18:00 19:00 Pulse 86 86 87 Resp 18 18 21 B/P (MAP) 103/65 (78) 107/61 (76) 117/71 (86) Pulse Ox 100 100 100 O2 Delivery Room Air Room Air Room Air Room Air 03/19/20 03/19/20 03/19/20 03/19/20 20:00 20:00 20:29 20:30 Temp 97.4 97.4 Pulse 91 Resp 26 B/P (MAP) 105/67 (80) Pulse Ox 100 99 99 O2 Delivery Room Air Room Air Room Air Room Air 03/19/20 03/19/20 03/19/20 03/19/20 20:31 21:00 22:00 23:00 Pulse 87 92 80 85 Resp 21 22 22 B/P (MAP) 117/71 108/69 (82) 99/64 (76) 107/65 (79) Pulse Ox 100 100 96 O2 Delivery Room Air Room Air Room Air 03/20/20 03/20/20 03/20/20 03/20/20 00:00 00:00 01:00 02:00 Temp 98.4 98.4 Pulse 77 74 78 Resp 18 22 19 B/P (MAP) 97/56 (70) 102/66 (78) 106/68 (81) Pulse Ox 98 94 98 O2 Delivery Room Air Room Air Room Air Room Air 03/20/20 03/20/20 03/20/20 03/20/20 03:00 04:00 04:00 05:00 Temp 97.7 97.7 Pulse 86 77 76 Resp 19 18 18 B/P (MAP) 125/75 (92) 105/66 (79) 107/67 (80) Pulse Ox 96 98 97 O2 Delivery Room Air Room Air Room Air Room Air 03/20/20 03/20/20 03/20/20 03/20/20 06:08 07:00 07:13 07:50 Pulse 78 84 Resp 18 16 B/P (MAP) 106/68 (81) 116/71 (86) Pulse Ox 98 100 100 O2 Delivery Room Air Room Air Room Air Room Air 03/20/20 03/20/20 03/20/20 03/20/20 08:00 08:06 08:07 09:00 Temp 97.9 97.9 Pulse 84 82 84 Resp 18 18 18 B/P (MAP) 130/78 (95) 130/78 103/69 (80) Pulse Ox 100 100 100 O2 Delivery Room Air Room Air Room Air 03/20/20 03/20/20 03/20/20 03/20/20 09:25 10:00 10:10 11:00 Pulse 75 76 69 Resp 16 16 18 B/P (MAP) 106/66 (79) 106/66 104/66 (79) Pulse Ox 99 100 100 O2 Delivery Room Air Room Air Room Air 03/20/20 03/20/20 12:00 12:00 Temp 97.6 97.6 Pulse 77 Resp 20 B/P (MAP) 102/67 (79) Pulse Ox 100 O2 Delivery Room Air Room Air Intake and Output 03/19/20 03/19/20 03/20/20 15:00 23:00 07:00 Intake Total 404 ml 1000 ml Output Total 560 ml 700 ml 450 ml Balance -156 ml 300 ml -450 ml VIRAL REY MD Mar 20, 2020 12:45
--- NOTE | 2020-03-20 12:59 | PDOC ---
SUBJECTIVE ROS Stable , MS improved OBJECTIVE Vital Signs Vital Signs Date Time Temp Pulse Resp B/P (MAP) Pulse Ox O2 Delivery O2 Flow Rate FiO2 03/20/20 12:00 97.6 77 20 102/67 (79) 100 Room Air 97.6 I & 0 Intake and Output 03/20/20 07:00 Intake Total 1404 ml Output Total 1710 ml Balance -306 ml Intake Oral 1354 ml Blood Product IV Normal Saline Flush 50 ml Output Urine Total 1710 ml PHYSICAL EXAM Physical Exam GENERAL: sitting up in chair, NAD HEENT: . Oral mucosa moist NECK: Supple. LUNGS: Decreased breath sounds at bases HEART: S1, S2 regular. ABDOMEN: nontender, EXTREMITIES: No edema, NEUROLOGIC: Alert, awake PSYCHIATRIC: Cooperative. Hernandez + DIAGNOSIS/ASSESSMENT Assessment & Plan COLBY - Renal function improing 1.5 E-Lytes stable,Good UOP CKD STAGE 3 with Cr 1.6-2.0 at baseline Severe Sepsis present on admission from gram-negative bacteremia. Anemia, ac drop in Hbg , status post PRBC. Hyponatremia. Encephalopathy, CT head negative History of renal cancer.S/P Nephrectomy Abnormal LFTs ,Liver mass COMMENT/RELEVANT DATA Meds Current Medications Medications (Trade) Dose Ordered Sig/Tory Start Time Stop Time Status Last Admin Dose Admin Acetaminophen (Tylenol Supp) 650 mg PRN Q6HRS PRN 03/16/20 23:00 03/17/20 20:34 650 MG Albumin Human 500 ml @ 125 mls/hr PRN DAILY PRN 03/18/20 15:45 03/18/20 16:07 125 MLS/HR Albuterol Sulfate (Ventolin Neb Soln) 2.5 mg PRN Q4HRS PRN 03/16/20 08:30 Albuterol/ Ipratropium (Duoneb) 3 ml RTQID 03/18/20 12:00 03/19/20 20:00 3 ML Amlodipine Besylate (Norvasc) 10 mg DAILY 03/16/20 09:00 03/18/20 09:57 10 MG Atenolol (Tenormin) 25 mg DAILY 03/17/20 14:00 03/17/20 14:42 DC Atorvastatin Calcium (Lipitor) 20 mg QHS 03/16/20 21:00 03/19/20 20:31 20 MG Budesonide (Pulmicort) 0.5 mg RTBID 03/18/20 20:00 03/19/20 20:00 0.5 MG Ceftriaxone Sodium (Rocephin) 2 gm Q24H 03/20/20 08:00 03/20/20 08:06 2 GM Dextrose (Dextrose 50%-Water Syringe) 12.5 gm PRN Q15MIN PRN 03/16/20 08:00 Dextrose/Sodium Chloride 1,000 ml @ 150 mls/hr Q6H40M 03/17/20 17:30 03/18/20 13:23 DC 03/18/20 02:00 150 MLS/HR Diclofenac Sodium (Voltaren) 75 mg BID 03/17/20 21:00 03/17/20 20:22 DC Diphenhydramine HCl (Benadryl) 25 mg PRN Q6HRS PRN 03/16/20 13:45 03/16/20 13:41 25 MG Duloxetine HCl (Cymbalta) 60 mg BID 03/16/20 09:00 03/20/20 08:06 60 MG Fentanyl Citrate (Fentanyl 2ml Vial) 50 mcg PRN Q3HRS PRN 03/17/20 20:30 03/18/20 09:54 50 MCG Furosemide (Lasix) 20 mg 1X ONCE 03/18/20 14:30 03/18/20 14:31 DC 03/18/20 14:23 20 MG Haloperidol Lactate (Haldol Inj) 5 mg PRN Q6HRS PRN 03/16/20 10:45 03/16/20 18:15 5 MG Heparin Sodium (Porcine) (Heparin Sodium) 5,000 unit Q8HRS 03/16/20 22:00 03/18/20 14:34 DC 03/18/20 05:01 5,000 UNIT Insulin Glargine (Lantus Syringe) 5 unit QHS 03/18/20 21:00 03/19/20 20:32 5 UNIT Insulin Human Lispro (HumaLOG) 0-7 UNITS TIDACHC 03/16/20 11:30 03/20/20 08:34 4 UNITS Ketorolac Tromethamine (Toradol 15mg Vial) 15 mg 1X ONCE 03/17/20 20:15 03/17/20 20:22 DC 03/17/20 20:34 15 MG Lidocaine (Lidoderm) 1 patch PRN DAILY PRN 03/16/20 08:00 03/17/20 07:16 DC Linagliptin (Tradjenta) 5 mg DAILY 03/16/20 09:00 03/20/20 08:07 5 MG Lorazepam (Ativan Inj) 1 mg PRN Q4HRS PRN 03/16/20 03:15 03/18/20 12:08 1 MG Lorazepam (Ativan) 1 mg PRN BID PRN 03/17/20 14:00 03/17/20 21:11 1 MG Magnesium Sulfate 50 ml @ 25 mls/hr 1X ONCE 03/18/20 16:00 03/18/20 17:59 DC 03/18/20 17:36 25 MLS/HR Meropenem 500 mg/ Sodium Chloride 50 ml @ 100 mls/hr Q6HRS 03/18/20 13:30 03/20/20 07:33 DC 03/20/20 05:38 100 MLS/HR Methylprednisolone Sodium Succinate (SOLU-Medrol 125MG VIAL) 125 mg 1X ONCE 03/18/20 13:00 03/18/20 13:01 DC 03/18/20 12:26 125 MG Metoprolol Tartrate (Lopressor Vial) 5 mg PRN Q6HRS PRN 03/18/20 15:45 Metoprolol Tartrate (Lopressor) 25 mg 1X ONCE 03/17/20 21:00 03/17/20 21:01 DC 03/17/20 21:12 25 MG Montelukast Sodium (Singulair) 10 mg DAILY 03/16/20 09:00 03/20/20 08:07 10 MG Non-Formulary Medication (Albuterol Sulfate (Ventolin Hfa Inhaler)) 2 puff PRN Q4-6HRS 03/16/20 08:00 UNV Non-Formulary Medication (Ondansetron Hcl ) 8 mg PRN BID PRN 03/17/20 14:00 03/18/20 16:12 DC Norepinephrine Bitartrate 8 mg/ Dextrose 258 ml @ 17.705 mls/ hr CONT PRN 03/18/20 15:45 Ondansetron HCl (Zofran Odt) 8 mg PRN BID PRN 03/18/20 16:15 Ondansetron HCl (Zofran) 4 mg PRN Q4HRS PRN 03/16/20 21:00 Oxycodone HCl (Roxicodone) 15 mg PRN Q6HRS PRN 03/17/20 14:15 03/20/20 08:07 15 MG Pantoprazole Sodium (PROTONIX VIAL for IV PUSH) 40 mg BIDAC 03/18/20 16:30 03/20/20 08:04 40 MG Pantoprazole Sodium (Protonix) 40 mg DAILYAC 03/16/20 08:30 03/18/20 14:14 DC 03/18/20 04:58 40 MG Piperacillin Sod/ Tazobactam Sod (Zosyn Per Pharmacy) 1 each PRN DAILY PRN 03/17/20 20:30 03/18/20 13:08 DC Piperacillin Sod/ Tazobactam Sod 3.375 gm/Sodium Chloride 50 ml @ 100 mls/hr Q6H 03/17/20 21:00 03/18/20 12:23 DC 03/18/20 08:37 100 MLS/HR Polyethylene Glycol (miraLAX PACKET) 17 gm PRN DAILY PRN 03/16/20 08:00 Sodium Chloride 154 meq/Dextrose 1,038.5 ml @ 75 mls/hr [id number] 03/17/20 04:45 03/17/20 13:10 DC 03/17/20 04:45 75 MLS/HR Tizanidine HCl (Zanaflex) 4 mg PRN Q6HRS PRN 03/17/20 14:00 Lab Laboratory Tests Test 03/19/20 15:25 03/19/20 16:32 03/19/20 17:39 03/19/20 20:36 Lactic Acid Level 1.3 mmol/L (0.4-2.0) Glucose (Fingerstick) 281 mg/dL (70-99) 242 mg/dL (70-99) Hemoglobin 8.0 g/dL (13.0-17.5) Test 03/20/20 06:35 03/20/20 08:13 03/20/20 12:00 03/20/20 12:10 White Blood Count 12.6 x10^3/uL (4.0-11.0) Red Blood Count 2.58 x10^6/uL (4.30-5.70) Hemoglobin 7.4 g/dL (13.0-17.5) 7.4 g/dL (13.0-17.5) Hematocrit 21.7 % (39.0-53.0) Mean Corpuscular Volume 84 fL (79-100) Mean Corpuscular Hemoglobin 29 pg (25-35) Mean Corpuscular Hemoglobin Concent 34 g/dL (31-37) Red Cell Distribution Width 17.4 % (11.5-14.5) Platelet Count 63 x10^3/uL (140-400) Neutrophils (%) (Auto) 91 % (31-73) Lymphocytes (%) (Auto) 5 % (24-48) Monocytes (%) (Auto) 4 % (0-9) Eosinophils (%) (Auto) 0 % (0-3) Basophils (%) (Auto) 0 % (0-3) Neutrophils # (Auto) 11.5 x10^3/uL (1.8-7.7) Lymphocytes # (Auto) 0.6 x10^3/uL (1.0-4.8) Monocytes # (Auto) 0.4 x10^3/uL (0.0-1.1) Eosinophils # (Auto) 0.0 x10^3/uL (0.0-0.7) Basophils # (Auto) 0.0 x10^3/uL (0.0-0.2) Sodium Level 130 mmol/L (136-145) Potassium Level 3.9 mmol/L (3.5-5.1) Chloride Level 99 mmol/L (98-107) Carbon Dioxide Level 26 mmol/L (21-32) Anion Gap 5 (6-14) Blood Urea Nitrogen 30 mg/dL (8-26) Creatinine 1.5 mg/dL (0.7-1.3) Estimated GFR (Cockcroft-Gault) 47.7 BUN/Creatinine Ratio 20 (6-20) Glucose Level 233 mg/dL (70-99) Calcium Level 7.4 mg/dL (8.5-10.1) Total Bilirubin 0.6 mg/dL (0.2-1.0) Aspartate Amino Transf (AST/SGOT) 39 U/L (15-37) Alanine Aminotransferase (ALT/SGPT) 38 U/L (16-63) Alkaline Phosphatase 153 U/L (46-116) Total Protein 4.7 g/dL (6.4-8.2) Albumin 1.4 g/dL (3.4-5.0) Albumin/Globulin Ratio 0.4 (1.0-1.7) Glucose (Fingerstick) 217 mg/dL (70-99) 142 mg/dL (70-99) Results All relevant outside records, renal labs, imaging studies, telemetry/EKG's were reviewed. Justicifation of Admission Dx: Justifications for Admission: Justification of Admission Dx: Yes HOWARD AGUILAR MD Mar 20, 2020 12:59
[2020-03-20] MEDS: AMINO AC 3%/ELECTROLYTE/GLYCER 1,000 ML IV SCH (13:24)
--- NOTE | 2020-03-20 15:43 | PDOC ---
GI PROGRESS NOTES Date Date/Time DATE: 03/20/20 TIME: 15:40 Subjective Subjective Awake. Comfortable in bed. Objective Vitals Vital Signs Date Time Temp Pulse Resp B/P (MAP) Pulse Ox O2 Delivery O2 Flow Rate FiO2 03/20/20 14:31 22 98 Room Air 03/20/20 14:00 72 16 102/64 (77) 100 Room Air 03/20/20 13:00 72 18 100/64 (76) 100 Room Air 03/20/20 12:00 97.6 77 20 102/67 (79) 100 Room Air 97.6 03/20/20 12:00 Room Air 03/20/20 11:00 69 18 104/66 (79) 100 Room Air 03/20/20 10:10 76 106/66 03/20/20 10:00 75 16 106/66 (79) 100 Room Air 03/20/20 09:25 16 99 Room Air 03/20/20 09:00 84 18 103/69 (80) 100 Room Air 03/20/20 08:07 18 100 Room Air 03/20/20 08:06 82 130/78 03/20/20 08:00 97.9 84 18 130/78 (95) 100 Room Air 97.9 03/20/20 07:50 Room Air 03/20/20 07:13 100 Room Air 03/20/20 07:00 84 16 116/71 (86) 100 Room Air 03/20/20 06:08 78 18 106/68 (81) 98 Room Air 03/20/20 05:00 76 18 107/67 (80) 97 Room Air 03/20/20 04:00 Room Air 03/20/20 04:00 97.7 77 18 105/66 (79) 98 Room Air 97.7 03/20/20 03:00 86 19 125/75 (92) 96 Room Air 03/20/20 02:00 78 19 106/68 (81) 98 Room Air 03/20/20 01:00 74 22 102/66 (78) 94 Room Air 03/20/20 00:00 98.4 77 18 97/56 (70) 98 Room Air 98.4 03/20/20 00:00 Room Air 03/19/20 23:00 85 22 107/65 (79) 96 Room Air 03/19/20 22:00 80 22 99/64 (76) 100 Room Air 03/19/20 21:00 92 21 108/69 (82) 100 Room Air 03/19/20 20:31 87 117/71 03/19/20 20:30 99 Room Air 03/19/20 20:29 99 Room Air 03/19/20 20:00 Room Air 03/19/20 20:00 97.4 91 26 105/67 (80) 100 Room Air 97.4 03/19/20 19:00 87 21 117/71 (86) 100 Room Air 03/19/20 18:00 86 18 107/61 (76) 100 Room Air 03/19/20 17:00 86 18 103/65 (78) 100 Room Air 03/19/20 16:00 Room Air 03/19/20 16:00 89 19 121/70 (87) 98 Room Air Labs Labs Laboratory Tests Test 03/19/20 16:32 03/19/20 17:39 03/19/20 20:36 03/20/20 06:35 Glucose (Fingerstick) 281 mg/dL (70-99) 242 mg/dL (70-99) Hemoglobin 8.0 g/dL (13.0-17.5) 7.4 g/dL (13.0-17.5) White Blood Count 12.6 x10^3/uL (4.0-11.0) Red Blood Count 2.58 x10^6/uL (4.30-5.70) Hematocrit 21.7 % (39.0-53.0) Mean Corpuscular Volume 84 fL (79-100) Mean Corpuscular Hemoglobin 29 pg (25-35) Mean Corpuscular Hemoglobin Concent 34 g/dL (31-37) Red Cell Distribution Width 17.4 % (11.5-14.5) Platelet Count 63 x10^3/uL (140-400) Neutrophils (%) (Auto) 91 % (31-73) Lymphocytes (%) (Auto) 5 % (24-48) Monocytes (%) (Auto) 4 % (0-9) Eosinophils (%) (Auto) 0 % (0-3) Basophils (%) (Auto) 0 % (0-3) Neutrophils # (Auto) 11.5 x10^3/uL (1.8-7.7) Lymphocytes # (Auto) 0.6 x10^3/uL (1.0-4.8) Monocytes # (Auto) 0.4 x10^3/uL (0.0-1.1) Eosinophils # (Auto) 0.0 x10^3/uL (0.0-0.7) Basophils # (Auto) 0.0 x10^3/uL (0.0-0.2) Sodium Level 130 mmol/L (136-145) Potassium Level 3.9 mmol/L (3.5-5.1) Chloride Level 99 mmol/L (98-107) Carbon Dioxide Level 26 mmol/L (21-32) Anion Gap 5 (6-14) Blood Urea Nitrogen 30 mg/dL (8-26) Creatinine 1.5 mg/dL (0.7-1.3) Estimated GFR (Cockcroft-Gault) 47.7 BUN/Creatinine Ratio 20 (6-20) Glucose Level 233 mg/dL (70-99) Calcium Level 7.4 mg/dL (8.5-10.1) Magnesium Level 2.0 mg/dL (1.8-2.4) Total Bilirubin 0.6 mg/dL (0.2-1.0) Aspartate Amino Transf (AST/SGOT) 39 U/L (15-37) Alanine Aminotransferase (ALT/SGPT) 38 U/L (16-63) Alkaline Phosphatase 153 U/L (46-116) Total Protein 4.7 g/dL (6.4-8.2) Albumin 1.4 g/dL (3.4-5.0) Albumin/Globulin Ratio 0.4 (1.0-1.7) Test 03/20/20 08:13 03/20/20 12:00 03/20/20 12:10 Glucose (Fingerstick) 217 mg/dL (70-99) 142 mg/dL (70-99) Hemoglobin 7.4 g/dL (13.0-17.5) Physical Exam Physical Exam Awake and alert. Limited details on his prior history. Chest clear with few rhonchi Abdomen soft, bowel sounds present, no obvious mass. Assessment Assessment Sepsis. Appears to be E. coli related and may be biliary from his previous stent although it is unclear since we are missing some of the hospital records and details of history. Today he is more alert and appears improving. Liver mass. Limited imaging with a noncontrasted study due to his renal disease. Likely necrotic or abscess. Could be metastatic disease although we do not have a primary at this point. Again records and history are limited Bleeding. Appears to have resolved over the last 24 hours. He denies any bleeding prior to admission. Some rectal bleeding is noted and CT suddenly appears to suggest a splenic flexure lesion. These are noncontrasted images so there is some limitation. We do not have a recent colonoscopy history to rule out a lesion in this area. Is also curious that he has a hepatic mass that could be a necrotic tumor or could be an abscess. The colon could be the source for either of these processes. Anemia. At least in part related to GI bleeding. Fortunately has clinically improved and hemoglobin although low has stabilized. Will need to continue to monitor but he is not a good candidate for colonoscopy at this point due to his numerous comorbidities. If he has recurrent bleeding it may be appropriate to consider an imaging study just bleeding scan to first localize the area Plan Plan Continue supportive care We will defer to Dr. Hmaeed when he returns tomorrow regarding further evaluation including elective colonoscopy for the bleeding. Justicifation of Admission Dx: Justifications for Admission: Justification of Admission Dx: Yes ROSE MARIE NELSON MD Mar 20, 2020 15:43
[2020-03-20] MEDS: INSULIN GLARGINE SYRINGE. SQ SCH (20:48)
[2020-03-20] MEDS: LACTOBACILLUS RHAMNOSUS GG 1 CAPSULE. PO SCH (20:50)
[2020-03-20] MEDS: ATORVASTATIN CALCIUM 20 MG TABLET PO SCH (20:51)
[2020-03-21] VITALS (28 sets, daily range): BP systolic 91–161; BP diastolic 59–93
[2020-03-21] MEDS: AMINO AC 3%/ELECTROLYTE/GLYCER 1,000 ML IV SCH (01:55)
[2020-03-21] MEDS: oxyCODONE IR 5 MG TABLET PO PRN ×2 (02:24→08:32)
[2020-03-21] MEDS: fentaNYL PF VIAL 100 MCG/2 ML VIAL IVP PRN (03:25)
[2020-03-21] MEDS: INSULIN LISPRO 300 UNITS/3 ML VIAL. SQ SCH ×4 (07:30→21:00)
[2020-03-21 07:31] LABS: BASO % 0 % (0-3); EOS % 0 % (0-3); HEMOGLOBIN 9.4 g/dL (13.0-17.5); LYMPH # 1.6 x10^3/uL (1.0-4.8); LYMPH % 10 % (24-48); MEAN CORPUSCULAR HEMOGLOBIN 29 pg (25-35); MEAN CORPUSCULAR HGB CONC 34 g/dL (31-37); MEAN CORPUSCULAR VOLUME 86 fL (79-100); MONO # 0.4 x10^3/uL (0.0-1.1); MONO % 3 % (0-9); NEUT # 13.5 x10^3/uL (1.8-7.7); NEUT % 87 % (31-73); PLATELET COUNT 122 x10^3/uL (140-400); RED BLOOD COUNT 3.26 x10^6/uL (4.30-5.70); WHITE BLOOD COUNT 15.6 x10^3/uL (4.0-11.0)
[2020-03-21 07:41] LABS: CALCIUM 8.2 mg/dL (8.5-10.1); CREATININE 1.3 mg/dL (0.7-1.3); GFR 56.3; POTASSIUM 4.8 mmol/L (3.5-5.1)
--- NOTE | 2020-03-21 07:45 | PDOC ---
Infectious Disease Note Subjective Subjective Has some back pain. Chronic in nature but worse over last several days Continues to have bloody stool Has some abdominal discomfort left lower quadrant No fevers Not on pressors ROS ROS o/w neg Vital Sign Vital Signs Vital Signs Date Time Temp Pulse Resp B/P (MAP) Pulse Ox O2 Delivery O2 Flow Rate FiO2 03/21/20 06:00 91 20 143/83 (103) 100 Room Air 03/21/20 04:35 3.0 03/21/20 04:00 98.4 98.4 Physical Exam PHYSICAL EXAM GENERAL: Alert, awake, in chair , coop but somewhat confused. HEENT: Normocephalic, atraumatic, anicteric. Oral mucosa dry. No thrush. NECK: Supple. Right IJ present LUNGS: Decreased breath sounds at bases. No wheezing. No accessory muscle use. HEART: S1, S2 regular. No murmurs. ABDOMEN: Mildly distended. Bowel sounds present, nontender, no rebound, no guarding. EXTREMITIES: No edema, no cyanosis. NEUROLOGIC: Alert, awake, somewhat confused. PSYCHIATRIC: Cooperative. SKIN: no rash Labs Lab Laboratory Tests Test 03/20/20 08:13 03/20/20 12:00 03/20/20 12:10 03/20/20 17:31 Glucose (Fingerstick) 217 mg/dL (70-99) 142 mg/dL (70-99) 166 mg/dL (70-99) Hemoglobin 7.4 g/dL (13.0-17.5) Test 03/20/20 17:35 03/20/20 20:54 03/20/20 23:51 03/21/20 00:01 Hemoglobin 8.1 g/dL (13.0-17.5) 7.6 g/dL (13.0-17.5) Glucose (Fingerstick) 157 mg/dL (70-99) 150 mg/dL (70-99) Test 03/21/20 07:28 White Blood Count 15.6 x10^3/uL (4.0-11.0) Red Blood Count 3.26 x10^6/uL (4.30-5.70) Hemoglobin 9.4 g/dL (13.0-17.5) Hematocrit 28.0 % (39.0-53.0) Mean Corpuscular Volume 86 fL (79-100) Mean Corpuscular Hemoglobin 29 pg (25-35) Mean Corpuscular Hemoglobin Concent 34 g/dL (31-37) Red Cell Distribution Width 17.0 % (11.5-14.5) Platelet Count 122 x10^3/uL (140-400) Neutrophils (%) (Auto) 87 % (31-73) Lymphocytes (%) (Auto) 10 % (24-48) Monocytes (%) (Auto) 3 % (0-9) Eosinophils (%) (Auto) 0 % (0-3) Basophils (%) (Auto) 0 % (0-3) Neutrophils # (Auto) 13.5 x10^3/uL (1.8-7.7) Lymphocytes # (Auto) 1.6 x10^3/uL (1.0-4.8) Monocytes # (Auto) 0.4 x10^3/uL (0.0-1.1) Eosinophils # (Auto) 0.0 x10^3/uL (0.0-0.7) Basophils # (Auto) 0.0 x10^3/uL (0.0-0.2) Micro Microbiology 03/16/20 Blood Culture - Final, Complete NO GROWTH AFTER 5 DAYS Objective Assessment Assessment: 1. Severe Sepsis present on admission from gram-negative bacteremia.03/15 03/16 - neg 2. E Coli bacteremia, 3. Leukocytosis and lactic acidosis.Solumedrol - 03/18/PRBCs 4. Anemia, status post PRBC. 5. Hyponatremia. 6. Encephalopathy - resolving, likely metabolic, CT head negative 7. History of renal cancer.S/P Nephrectomy 8. Abnormal LFTs ,Liver mass 9. History of ALLERGIES TO CLINDAMYCIN AND LEVAQUIN. 10. Recent placement of metallic stent 11. Thrombocytopenia - better? Sepsis vs other 12 COVID-19 neg 03/19 Plan Plan of Care DC meropenem 03/18 - 03/20 previous Zosyn 03/17- 03/18. Dose Rocephin 03/16 Ceftriaxone 03/20 TO IR today Follow up repeat blood cultures. Negative so far F/U AM labs. Electrolytes per primary Maintain aspiration precaution. Local wound care as directed Discussed with nursing staff GRIS CASAS MD Mar 21, 2020 07:45
--- NOTE | 2020-03-21 08:23 | PDOC ---
SURGICAL PROGRESS NOTE Subjective Patient feeling much better this morning his only complaint is his urinary catheter which he would like to have removed Vital Signs Vital Signs Date Time Temp Pulse Resp B/P (MAP) Pulse Ox O2 Delivery O2 Flow Rate FiO2 03/21/20 07:00 108 12 147/86 (106) 100 Room Air 03/21/20 04:35 3.0 03/21/20 04:00 98.4 98.4 I&O Intake and Output 03/21/20 07:00 Intake Total 3012 ml Output Total 1875 ml Balance 1137 ml Intake Oral 1880 ml IV Total 1132 ml Output Urine Total 1875 ml # Bowel Movements 1 PATIENT HAS A HERNANDEZ: Yes General: Alert, Oriented X3, Cooperative, No acute distress Abdomen: Normal bowel sounds, Soft, No tenderness Labs Laboratory Tests Test 03/19/20 12:46 03/19/20 15:25 03/19/20 16:32 03/19/20 17:39 Glucose (Fingerstick) 227 mg/dL (70-99) 281 mg/dL (70-99) Lactic Acid Level 1.3 mmol/L (0.4-2.0) Hemoglobin 8.0 g/dL (13.0-17.5) Test 03/19/20 20:36 03/20/20 06:35 03/20/20 08:13 03/20/20 12:00 Glucose (Fingerstick) 242 mg/dL (70-99) 217 mg/dL (70-99) White Blood Count 12.6 x10^3/uL (4.0-11.0) Red Blood Count 2.58 x10^6/uL (4.30-5.70) Hemoglobin 7.4 g/dL (13.0-17.5) 7.4 g/dL (13.0-17.5) Hematocrit 21.7 % (39.0-53.0) Mean Corpuscular Volume 84 fL (79-100) Mean Corpuscular Hemoglobin 29 pg (25-35) Mean Corpuscular Hemoglobin Concent 34 g/dL (31-37) Red Cell Distribution Width 17.4 % (11.5-14.5) Platelet Count 63 x10^3/uL (140-400) Neutrophils (%) (Auto) 91 % (31-73) Lymphocytes (%) (Auto) 5 % (24-48) Monocytes (%) (Auto) 4 % (0-9) Eosinophils (%) (Auto) 0 % (0-3) Basophils (%) (Auto) 0 % (0-3) Neutrophils # (Auto) 11.5 x10^3/uL (1.8-7.7) Lymphocytes # (Auto) 0.6 x10^3/uL (1.0-4.8) Monocytes # (Auto) 0.4 x10^3/uL (0.0-1.1) Eosinophils # (Auto) 0.0 x10^3/uL (0.0-0.7) Basophils # (Auto) 0.0 x10^3/uL (0.0-0.2) Sodium Level 130 mmol/L (136-145) Potassium Level 3.9 mmol/L (3.5-5.1) Chloride Level 99 mmol/L (98-107) Carbon Dioxide Level 26 mmol/L (21-32) Anion Gap 5 (6-14) Blood Urea Nitrogen 30 mg/dL (8-26) Creatinine 1.5 mg/dL (0.7-1.3) Estimated GFR (Cockcroft-Gault) 47.7 BUN/Creatinine Ratio 20 (6-20) Glucose Level 233 mg/dL (70-99) Calcium Level 7.4 mg/dL (8.5-10.1) Magnesium Level 2.0 mg/dL (1.8-2.4) Total Bilirubin 0.6 mg/dL (0.2-1.0) Aspartate Amino Transf (AST/SGOT) 39 U/L (15-37) Alanine Aminotransferase (ALT/SGPT) 38 U/L (16-63) Alkaline Phosphatase 153 U/L (46-116) Total Protein 4.7 g/dL (6.4-8.2) Albumin 1.4 g/dL (3.4-5.0) Albumin/Globulin Ratio 0.4 (1.0-1.7) Test 03/20/20 12:10 03/20/20 17:31 03/20/20 17:35 03/20/20 20:54 Glucose (Fingerstick) 142 mg/dL (70-99) 166 mg/dL (70-99) 157 mg/dL (70-99) Hemoglobin 8.1 g/dL (13.0-17.5) Test 03/20/20 23:51 03/21/20 00:01 03/21/20 07:28 Glucose (Fingerstick) 150 mg/dL (70-99) Hemoglobin 7.6 g/dL (13.0-17.5) 9.4 g/dL (13.0-17.5) White Blood Count 15.6 x10^3/uL (4.0-11.0) Red Blood Count 3.26 x10^6/uL (4.30-5.70) Hematocrit 28.0 % (39.0-53.0) Mean Corpuscular Volume 86 fL (79-100) Mean Corpuscular Hemoglobin 29 pg (25-35) Mean Corpuscular Hemoglobin Concent 34 g/dL (31-37) Red Cell Distribution Width 17.0 % (11.5-14.5) Platelet Count 122 x10^3/uL (140-400) Neutrophils (%) (Auto) 87 % (31-73) Lymphocytes (%) (Auto) 10 % (24-48) Monocytes (%) (Auto) 3 % (0-9) Eosinophils (%) (Auto) 0 % (0-3) Basophils (%) (Auto) 0 % (0-3) Neutrophils # (Auto) 13.5 x10^3/uL (1.8-7.7) Lymphocytes # (Auto) 1.6 x10^3/uL (1.0-4.8) Monocytes # (Auto) 0.4 x10^3/uL (0.0-1.1) Eosinophils # (Auto) 0.0 x10^3/uL (0.0-0.7) Basophils # (Auto) 0.0 x10^3/uL (0.0-0.2) Sodium Level 125 mmol/L (136-145) Potassium Level 4.8 mmol/L (3.5-5.1) Chloride Level 96 mmol/L (98-107) Carbon Dioxide Level 21 mmol/L (21-32) Anion Gap 8 (6-14) Blood Urea Nitrogen 26 mg/dL (8-26) Creatinine 1.3 mg/dL (0.7-1.3) Estimated GFR (Cockcroft-Gault) 56.3 Glucose Level 162 mg/dL (70-99) Calcium Level 8.2 mg/dL (8.5-10.1) Laboratory Tests Test 03/20/20 12:00 03/20/20 12:10 03/20/20 17:31 03/20/20 17:35 Hemoglobin 7.4 g/dL (13.0-17.5) 8.1 g/dL (13.0-17.5) Glucose (Fingerstick) 142 mg/dL (70-99) 166 mg/dL (70-99) Test 03/20/20 20:54 03/20/20 23:51 03/21/20 00:01 03/21/20 07:28 Glucose (Fingerstick) 157 mg/dL (70-99) 150 mg/dL (70-99) Hemoglobin 7.6 g/dL (13.0-17.5) 9.4 g/dL (13.0-17.5) White Blood Count 15.6 x10^3/uL (4.0-11.0) Red Blood Count 3.26 x10^6/uL (4.30-5.70) Hematocrit 28.0 % (39.0-53.0) Mean Corpuscular Volume 86 fL (79-100) Mean Corpuscular Hemoglobin 29 pg (25-35) Mean Corpuscular Hemoglobin Concent 34 g/dL (31-37) Red Cell Distribution Width 17.0 % (11.5-14.5) Platelet Count 122 x10^3/uL (140-400) Neutrophils (%) (Auto) 87 % (31-73) Lymphocytes (%) (Auto) 10 % (24-48) Monocytes (%) (Auto) 3 % (0-9) Eosinophils (%) (Auto) 0 % (0-3) Basophils (%) (Auto) 0 % (0-3) Neutrophils # (Auto) 13.5 x10^3/uL (1.8-7.7) Lymphocytes # (Auto) 1.6 x10^3/uL (1.0-4.8) Monocytes # (Auto) 0.4 x10^3/uL (0.0-1.1) Eosinophils # (Auto) 0.0 x10^3/uL (0.0-0.7) Basophils # (Auto) 0.0 x10^3/uL (0.0-0.2) Sodium Level 125 mmol/L (136-145) Potassium Level 4.8 mmol/L (3.5-5.1) Chloride Level 96 mmol/L (98-107) Carbon Dioxide Level 21 mmol/L (21-32) Anion Gap 8 (6-14) Blood Urea Nitrogen 26 mg/dL (8-26) Creatinine 1.3 mg/dL (0.7-1.3) Estimated GFR (Cockcroft-Gault) 56.3 Glucose Level 162 mg/dL (70-99) Calcium Level 8.2 mg/dL (8.5-10.1) Problem List Problems Medical Problems: (1) Acute kidney injury Status: Acute (2) Encephalopathy Status: Acute (3) Hypoglycemia Status: Acute (4) Hyponatremia Status: Acute (5) Seizure Status: Acute Assessment/Plan Liver abscess fluid collection versus mass. Scheduled for evaluation by IR today we will follow-up on results No new surgical recommendations Justicifation of Admission Dx: Justifications for Admission: Justification of Admission Dx: Yes DAKSHA SUMNER MD Mar 21, 2020 08:23
[2020-03-21] MEDS: LINAGLIPTIN 5 MG TABLET PO SCH (08:32)
[2020-03-21] MEDS: DULoxetine HCL 30 MG CAPSULE.DR PO SCH ×2 (08:32→21:16)
[2020-03-21] MEDS: MONTELUKAST SODIUM 10 MG TABLET. PO SCH (08:32)
[2020-03-21] MEDS: LACTOBACILLUS RHAMNOSUS GG 1 CAPSULE. PO SCH ×2 (08:32→21:16)
[2020-03-21] MEDS: METOPROLOL TART IMMED RELEASE 25 MG TABLET. PO SCH ×2 (08:33→21:00)
[2020-03-21] MEDS: amLODIPine BESYLATE 10 MG TABLET PO SCH (08:33)
[2020-03-21] MEDS: PANTOPRAZOLE IV PUSH 40 MG VIAL. IVP SCH ×2 (08:33→17:04)
[2020-03-21] MEDS: cefTRIAXone IV Push 2 GM VIAL. IVP SCH (08:35)
[2020-03-21] MEDS: IPRATRPIUM/ALBUTEROL 0.5/2.5MG 3 ML NEBU. NEB SCH ×4 (08:38→19:37)
[2020-03-21] MEDS: BUDESONIDE 0.5 MG/2 ML NEBU. NEB SCH ×2 (08:38→19:37)
[2020-03-21 09:05] LABS: PROTHROMBIN TIME PATIENT 14.5 SEC (11.7-14.0)
[2020-03-21] MEDS ORDERED: MIDAZOLAM HCL/PF 2 MG/2 ML VIAL. ONE (09:39)
[2020-03-21] MEDS ORDERED: fentaNYL PF VIAL 100 MCG/2 ML VIAL ONE (09:39)
[2020-03-21] MEDS ORDERED: LIDOCAINE WITH 8.4% SOD BICARB 3 ML DISP.SYRIN. ONE (09:41)
[2020-03-21] MEDS ORDERED: LIDOCAINE WITH 8.4% SOD BICARB 3 ML DISP.SYRIN. IJ ONE (10:00)
[2020-03-21] MEDS ORDERED: MIDAZOLAM HCL/PF 2 MG/2 ML VIAL. IV ONE (10:00)
[2020-03-21] MEDS ORDERED: fentaNYL PF VIAL 100 MCG/2 ML VIAL IV ONE (10:00)
--- NOTE | 2020-03-21 10:15 | NUR ---
Pt to IR @ 8184 for procedure
--- NOTE | 2020-03-21 10:32 | PDOC ---
Provider Note Provider Note IR NOTE Procedure: CT guided drainage, liver abscess. EBl 3 CT aspiration of liver abnormality yielded purulent material . 10 Fr drain placed. Justicifation of Admission Dx: Justifications for Admission: Justification of Admission Dx: Yes EILEEN KELLOGG MD Mar 21, 2020 10:32
[2020-03-21] MEDS ORDERED: INSULIN LISPRO 300 UNITS/3 ML VIAL. SQ ONE (10:45)
[2020-03-21] MEDS ORDERED: diphenhydrAMINE 50 MG/ML VIAL IVP PRN (11:00)
[2020-03-21] MEDS ORDERED: NALOXONE 0.4 MG/ML VIAL. IV PRN (11:00)
[2020-03-21] MEDS ORDERED: HYDROmorphone 2 MG/ML VIAL IVP PRN (11:00)
[2020-03-21] MEDS ORDERED: HYDROmorphone 12mg/30ml PCA 30 ML IV PRN ×3 (11:00→19:00)
--- NOTE | 2020-03-21 11:15 | PDOC ---
SRINI NIX ASSOCIATE DEAN 03/21/20 1115: CARDIO Progress Notes Date and Time Date of Service 03/21/20 Time of Evaluation 1055 Subjective Subjective: No Chest Pain, No Palpitations, Other (c/o pain ) Vitals Vitals Vital Signs Date Time Temp Pulse Resp B/P (MAP) Pulse Ox O2 Delivery O2 Flow Rate FiO2 03/21/20 10:24 104 20 100 Nasal Cannula 2.0 03/21/20 10:19 96/60 (72) 03/21/20 08:00 99.2 99.2 Weight Weight [ ] Input and Output Intake and Output Intake and Output 03/21/20 06:59 Intake Total 3012 ml Output Total 1550 ml Balance 1462 ml Intake Oral 1880 ml IV Total 1132 ml Output Urine Total 1550 ml Laboratory Labs Laboratory Tests Test 03/20/20 12:00 03/20/20 12:10 03/20/20 17:31 03/20/20 17:35 Hemoglobin 7.4 g/dL (13.0-17.5) 8.1 g/dL (13.0-17.5) Glucose (Fingerstick) 142 mg/dL (70-99) 166 mg/dL (70-99) Test 03/20/20 20:54 03/20/20 23:51 03/21/20 00:01 03/21/20 07:28 Glucose (Fingerstick) 157 mg/dL (70-99) 150 mg/dL (70-99) Hemoglobin 7.6 g/dL (13.0-17.5) 9.4 g/dL (13.0-17.5) White Blood Count 15.6 x10^3/uL (4.0-11.0) Red Blood Count 3.26 x10^6/uL (4.30-5.70) Hematocrit 28.0 % (39.0-53.0) Mean Corpuscular Volume 86 fL (79-100) Mean Corpuscular Hemoglobin 29 pg (25-35) Mean Corpuscular Hemoglobin Concent 34 g/dL (31-37) Red Cell Distribution Width 17.0 % (11.5-14.5) Platelet Count 122 x10^3/uL (140-400) Neutrophils (%) (Auto) 87 % (31-73) Lymphocytes (%) (Auto) 10 % (24-48) Monocytes (%) (Auto) 3 % (0-9) Eosinophils (%) (Auto) 0 % (0-3) Basophils (%) (Auto) 0 % (0-3) Neutrophils # (Auto) 13.5 x10^3/uL (1.8-7.7) Lymphocytes # (Auto) 1.6 x10^3/uL (1.0-4.8) Monocytes # (Auto) 0.4 x10^3/uL (0.0-1.1) Eosinophils # (Auto) 0.0 x10^3/uL (0.0-0.7) Basophils # (Auto) 0.0 x10^3/uL (0.0-0.2) Sodium Level 125 mmol/L (136-145) Potassium Level 4.8 mmol/L (3.5-5.1) Chloride Level 96 mmol/L (98-107) Carbon Dioxide Level 21 mmol/L (21-32) Anion Gap 8 (6-14) Blood Urea Nitrogen 26 mg/dL (8-26) Creatinine 1.3 mg/dL (0.7-1.3) Estimated GFR (Cockcroft-Gault) 56.3 Glucose Level 162 mg/dL (70-99) Calcium Level 8.2 mg/dL (8.5-10.1) Test 03/21/20 08:45 03/21/20 08:51 Prothrombin Time 14.5 SEC (11.7-14.0) Prothromb Time International Ratio 1.2 (0.8-1.1) Glucose (Fingerstick) 123 mg/dL (70-99) Microbiology Micro Microbiology 03/16/20 Blood Culture - Final, Complete NO GROWTH AFTER 5 DAYS Review of Systems Constitutional: yes: other (CONFUSED) Physical Exam HEENT: Neck Supple W Full Motion Chest: Symmetric LUNGS: Other (diminished) Heart: RRR (sinus tachycardia) Abdomen: Other (soft) Extremities: No Edema Neurology: alert, follow commands Assessment Assessment 1. Acute on chronic diastolic CHF/pleural effusion: multifactorial induced by anemia, hypoalbuminemia and renal failure. s/p transfusion. EF and WM nml. Better compensated today. 2. Metabolic encephalopathy; improving 3. Sepsis/bacteremia/fevers, treat per ID team. 4. Acute respiratory failure, improved. COVID neg. Pulmonary team following. 5. Mild transaminitis with hepatic mass: GI following. S/p CT guided drainage of liver abscess. 6. S/P lap jonelle with bile leak: S/P ERCP with biliary stent placement at [facility] 7. COLBY on CKD with hyponatremia: improved. nephrology following 8. Normocytic anemia with GI bleed (melena/hematochezia): s/p transfusion; hgb stable 9. Recently noted PUD: prepyloric ulcers via EGD 03/10/2020 10. Hx of left nephrectomy r/t renal CA 11. HTN: controlled 12. DM2 with hypoglycemia 13. HLP 13. Mild troponin elevation: 0.085, no EKG chnages no cardiac symptoms. Type 2 demand ischemia 14. Reactive sinus tachycardia Justicifation of Admission Dx: Justifications for Admission: Justification of Admission Dx: Yes VIRAL REY MD 03/21/20 1839: CARDIO Progress Notes Assessment Assessment Patient seen and examined. Agree with SEARCH AND RESCUE OFFICER's assessment and plan, Ac on chr diastolic HF better compensarted 2D echo showed normal LVF Slight trop elevation prob demand ischemia Tele did not show any significant arrhythmias Met encephalopathy improved Continue treatment of sepsis per SRINI ESPINAL APRN Mar 21, 2020 11:15 VIRAL REY MD Mar 21, 2020 18:39
--- NOTE | 2020-03-21 11:36 | RAD ---
Single AP view of the chest. Comparison: 03/18/2020. Indication: Hepatic abscess Findings: Right internal jugular central line is stable. The heart is not enlarged. There is no pneumothorax or effusion. No air space or interstitial disease. Stable hepatic surgical drain. Impression: 1. No acute cardiopulmonary process. Electronically signed by: Baljit Winn MD (03/21/2020 11:33 AM) [id number]
--- NOTE | 2020-03-21 12:15 | PDOC ---
Renal-Progress Notes Subjective Notes Notes NO COMPLAINTS History of Present Illness Hx of present illness POST DRAIN Vitals Vitals Vital Signs Date Time Temp Pulse Resp B/P (MAP) Pulse Ox O2 Delivery O2 Flow Rate FiO2 03/21/20 11:57 97 Room Air 03/21/20 10:24 104 20 2.0 03/21/20 10:19 96/60 (72) 03/21/20 08:00 99.2 99.2 Weight Weight [ ] I.O. Intake and Output Intake and Output 03/21/20 07:00 Intake Total 3012 ml Output Total 1875 ml Balance 1137 ml Intake Oral 1880 ml IV Total 1132 ml Output Urine Total 1875 ml # Bowel Movements 1 Labs Labs Laboratory Tests Test 03/20/20 17:31 03/20/20 17:35 03/20/20 20:54 03/20/20 23:51 Glucose (Fingerstick) 166 mg/dL (70-99) 157 mg/dL (70-99) 150 mg/dL (70-99) Hemoglobin 8.1 g/dL (13.0-17.5) Test 03/21/20 00:01 03/21/20 07:28 03/21/20 08:45 03/21/20 08:51 Hemoglobin 7.6 g/dL (13.0-17.5) 9.4 g/dL (13.0-17.5) White Blood Count 15.6 x10^3/uL (4.0-11.0) Red Blood Count 3.26 x10^6/uL (4.30-5.70) Hematocrit 28.0 % (39.0-53.0) Mean Corpuscular Volume 86 fL (79-100) Mean Corpuscular Hemoglobin 29 pg (25-35) Mean Corpuscular Hemoglobin Concent 34 g/dL (31-37) Red Cell Distribution Width 17.0 % (11.5-14.5) Platelet Count 122 x10^3/uL (140-400) Neutrophils (%) (Auto) 87 % (31-73) Lymphocytes (%) (Auto) 10 % (24-48) Monocytes (%) (Auto) 3 % (0-9) Eosinophils (%) (Auto) 0 % (0-3) Basophils (%) (Auto) 0 % (0-3) Neutrophils # (Auto) 13.5 x10^3/uL (1.8-7.7) Lymphocytes # (Auto) 1.6 x10^3/uL (1.0-4.8) Monocytes # (Auto) 0.4 x10^3/uL (0.0-1.1) Eosinophils # (Auto) 0.0 x10^3/uL (0.0-0.7) Basophils # (Auto) 0.0 x10^3/uL (0.0-0.2) Sodium Level 125 mmol/L (136-145) Potassium Level 4.8 mmol/L (3.5-5.1) Chloride Level 96 mmol/L (98-107) Carbon Dioxide Level 21 mmol/L (21-32) Anion Gap 8 (6-14) Blood Urea Nitrogen 26 mg/dL (8-26) Creatinine 1.3 mg/dL (0.7-1.3) Estimated GFR (Cockcroft-Gault) 56.3 Glucose Level 162 mg/dL (70-99) Calcium Level 8.2 mg/dL (8.5-10.1) Prothrombin Time 14.5 SEC (11.7-14.0) Prothromb Time International Ratio 1.2 (0.8-1.1) Glucose (Fingerstick) 123 mg/dL (70-99) Test 03/21/20 11:50 Hemoglobin 9.1 g/dL (13.0-17.5) Micro Micro Microbiology 03/16/20 Blood Culture - Final, Complete NO GROWTH AFTER 5 DAYS Review of Systems Constitutional: yes: other Physical Exam General Appearance: no apparent distress Skin: warm Respiratory: bilateral CTA Heart: S1S2, RRR Abdomen: soft, bowel sounds present Genitourinary: bladder flat Extremities: pulses present Neurology: alert, confused Musculoskeletal: Osteoarthritis, Other (cervical stenosis; chronic opioid use) Assessment Assessment IMP COLBY RESOLVED CKD STAGE 3 WITH CR AT BASELINE ANEMIA HYPONATREMIA HYPOGLYCEMIA MET ENCEPHALOPATHY LEUCOCYTOSIS MALNUTRITION PLAN STOP PPN ENC PO SOON REPEAT LABS IN AM WILL FOLLOW NADIR REILLY MD Mar 21, 2020 12:15
--- NOTE | 2020-03-21 13:36 | NUR ---
Pt has had three bloody stools today. Dr. Hameed notified and aware. Will come and assess pt.
--- NOTE | 2020-03-21 13:55 | PDOC ---
[employer] PROGRESS NOTE Chief Complaint Chief Complaint GI BLEED, TRANSFUSED Hyponatremia Hepatic mass s/p IR biliary drain History of renal cell carcinoma Altered mental status Recent placement of percutaneous biliary drain Severe sepsis Gram negative bacteremia BLOOD CULTURE Final GRAM NEGATIVE RODS SEEN IN 1 OF 2 TOTAL BOTTLES, REPRESENTING 2 SETS COLLECTED (EACH SET ONLY HAS ONE BOTTLE). acute METABOLIC ENCEPHALOPATHY - improved COPD - will cont home nebs Large irregular hepatic mass. This is likely a necrotic metastasis. An abscess is not excluded. 6 is unchanged. Normocytic anemia with GI bleed (melena/hematochezia): Hgb 6.8 and just received 1U transfusion PUD: prepyloric ulcers via EGD 03/10/2020 Biliary stent and mild pneumobilia seen previously. Altered mental status CKD STAGE 3 with Cr 1.6-2.0 // baseline Recent placement of percutaneous biliary drain [facility] The left colon is collapsed. A stricture at the splenic flexure is possible. Apparently issues w/ confusion since cholecystectomy at on 12/25/19. Per nurse d/w , "drain" placed ~3 weeks after surgery, then "stent" placed ~1 week ago. ?bile leak Reported h/o hyponatremia per labs at . Liver biopsy 2009 from LEFT lobe of liver during w/u of renal cancer; cavernous hemangioma. 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 She notes he has had a progressive decline over the last month or so. Patient is encephalopathic and unable to answer questions. Patient given glucagon prior to arrival and blood sugar improved from 55-83. notes issues w/ confusion since cholecystectomy at on 12/25/19. notes an IR drain was placed after a readmission for worsening and remained in place for 3 weeks and was removed at the end of January, then he returned for common bile duct stent placement last week. She notes that she was told that he had a "small spot" on his liver at [facility] and that his sodium was "better" at 129 last week. She also notes he has lost 46# in the past 2 months and she is not aware of any diagnosis for him. Patient is not even speaking, he is moaning and writhing in bed. Has been tested 3x for covid 19 and negative with last check over a week ago. CXR with pulmonary vasculare congestion and CT head negative for acute process. Labs significant for WBC 17.2, Hb 8.2, platelets 244, INR 1.3, Na 123, K 4.7, BUN 49, Cr 3.4, Albumin 1.7, Glucose 97, Mg 1.7, AST 84, ALT 66, Alk phos 228, Bili 1.2. BNP 32648 Admitted to ICU for further care. 03/21/20 Patient seen and examined bedside today. Returned from IR drainage. Chest x- ray was reviewed for possible pneumothorax. Chest x-ray is stable without any signs of pneumothorax. Patient will be started on Dilaudid [employer] for pain control. Patient does have a history of chronic pain that requires opioids for control. Okay for transfer to [facility]. Vitals/I&O Vitals/I&O: Vital Signs Date Time Temp Pulse Resp B/P (MAP) Pulse Ox O2 Delivery O2 Flow Rate FiO2 03/21/20 13:31 98 Room Air 03/21/20 13:00 118 31 154/91 (112) 03/21/20 12:00 100.2 100.2 03/21/20 10:24 2.0 I & O 03/20/20 03/20/20 03/21/20 15:00 23:00 07:00 Intake Total 1180 ml 1046 ml 786 ml Output Total 525 ml 725 ml 625 ml Balance 655 ml 321 ml 161 ml Physical Exam Physical Exam: GENERAL: Alert, awake, in chair , coop but somewhat confused. HEENT: Normocephalic, atraumatic, anicteric. Oral mucosa dry. No thrush. NECK: Supple. Right IJ present LUNGS: Decreased breath sounds at bases. No wheezing. No accessory muscle use. HEART: S1, S2 regular. No murmurs. ABDOMEN: Mildly distended. Bowel sounds present, nontender, no rebound, no guarding. EXTREMITIES: No edema, no cyanosis. NEUROLOGIC: Alert, awake, somewhat confused. PSYCHIATRIC: Cooperative. SKIN: no rash General: Alert, Oriented X3, Cooperative, No acute distress Heart: Regular rate Lungs: Clear Abdomen: Normal bowel sounds, Soft, No tenderness Extremities: No edema Skin: No significant lesion Labs Labs: Laboratory Tests Test 03/20/20 17:31 03/20/20 17:35 03/20/20 20:54 03/20/20 23:51 Glucose (Fingerstick) 166 mg/dL (70-99) 157 mg/dL (70-99) 150 mg/dL (70-99) Hemoglobin 8.1 g/dL (13.0-17.5) Test 03/21/20 00:01 03/21/20 07:28 03/21/20 08:45 03/21/20 08:51 Hemoglobin 7.6 g/dL (13.0-17.5) 9.4 g/dL (13.0-17.5) White Blood Count 15.6 x10^3/uL (4.0-11.0) Red Blood Count 3.26 x10^6/uL (4.30-5.70) Hematocrit 28.0 % (39.0-53.0) Mean Corpuscular Volume 86 fL (79-100) Mean Corpuscular Hemoglobin 29 pg (25-35) Mean Corpuscular Hemoglobin Concent 34 g/dL (31-37) Red Cell Distribution Width 17.0 % (11.5-14.5) Platelet Count 122 x10^3/uL (140-400) Neutrophils (%) (Auto) 87 % (31-73) Lymphocytes (%) (Auto) 10 % (24-48) Monocytes (%) (Auto) 3 % (0-9) Eosinophils (%) (Auto) 0 % (0-3) Basophils (%) (Auto) 0 % (0-3) Neutrophils # (Auto) 13.5 x10^3/uL (1.8-7.7) Lymphocytes # (Auto) 1.6 x10^3/uL (1.0-4.8) Monocytes # (Auto) 0.4 x10^3/uL (0.0-1.1) Eosinophils # (Auto) 0.0 x10^3/uL (0.0-0.7) Basophils # (Auto) 0.0 x10^3/uL (0.0-0.2) Sodium Level 125 mmol/L (136-145) Potassium Level 4.8 mmol/L (3.5-5.1) Chloride Level 96 mmol/L (98-107) Carbon Dioxide Level 21 mmol/L (21-32) Anion Gap 8 (6-14) Blood Urea Nitrogen 26 mg/dL (8-26) Creatinine 1.3 mg/dL (0.7-1.3) Estimated GFR (Cockcroft-Gault) 56.3 Glucose Level 162 mg/dL (70-99) Calcium Level 8.2 mg/dL (8.5-10.1) Prothrombin Time 14.5 SEC (11.7-14.0) Prothromb Time International Ratio 1.2 (0.8-1.1) Glucose (Fingerstick) 123 mg/dL (70-99) Test 03/21/20 11:50 03/21/20 12:26 Hemoglobin 9.1 g/dL (13.0-17.5) Glucose (Fingerstick) 166 mg/dL (70-99) Review of Systems Review of Systems: CONSTITUIONAL: Denies weight loss, fever and chills. HEENT: Denies changes in vision and hearing. RESPIRATORY: Denies SOB and cough. CV: Denies palpitations and CP. GI: Denies abdominal pain, nausea, vomiting and diarrhea. : Denies dysuria and urinary frequency. MSK: Denies myalgia and joint pain. SKIN: Denies rash and pruritus. NEUROLOGICAL: Denies headache and syncope. PSYCHIATRIC: Denies recent changes in mood. Denies anxiety and depression. Assessment and Plan Assessmemt and Plan Problems Medical Problems: (1) Acute kidney injury Status: Acute (2) Encephalopathy Status: Acute (3) Hypoglycemia Status: Acute (4) Hyponatremia Status: Acute (5) Seizure Status: Acute Comment Review of Relevant I have reviewed the following items clarisse (where applicable) has been applied. Medications: Current Medications Medications (Trade) Dose Ordered Sig/Tory Route PRN Reason Start Time Stop Time Status Last Admin Dose Admin Lactobacillus Rhamnosus (Culturelle) 1 cap BID PO 03/20/20 21:00 03/21/20 08:32 Amino Acids/ Glycerin/ Electrolytes 1,000 ml @ 80 mls/hr [id number] IV 03/20/20 14:00 03/21/20 12:25 DC 03/21/20 01:55 Lidocaine HCl (Buffered Lidocaine 1%) 3 ml 1X ONCE IJ 03/21/20 10:00 03/21/20 10:10 DC 03/21/20 10:00 Midazolam HCl (Versed) 2 mg 1X ONCE IV 03/21/20 10:00 03/21/20 10:10 DC 03/21/20 10:00 Fentanyl Citrate (Fentanyl 2ml Vial) 100 mcg 1X ONCE IV 03/21/20 10:00 03/21/20 10:10 DC 03/21/20 10:00 Hydromorphone HCl 30 ml @ 0 mls/hr CONT PRN PRN IV BREAKTHROUGH PAIN 03/21/20 11:00 03/22/20 12:00 03/21/20 11:57 Justicifation of Admission Dx: Justifications for Admission: Justification of Admission Dx: Yes MIRIAM LINDQUIST MD Mar 21, 2020 13:55
--- NOTE | 2020-03-21 14:06 | RAD ---
EXAM: Bilateral lower extremity venous Doppler sonogram. HISTORY: Pain and swelling. TECHNIQUE: Delaney scale and color Doppler sonographic evaluation of the bilateral lower extremity veins with spectral waveform analysis was performed. FINDINGS: There is normal color flow, normal compressibility and there are normal spectral waveforms in the common femoral, superficial femoral, popliteal, posterior tibial and greater saphenous veins. IMPRESSION: No Doppler evidence of lower extremity deep venous thrombosis. Electronically signed by: Kriss Rosa MD (03/21/2020 2:03 PM) [id number]
[2020-03-21 14:10] LABS: CEA 1.3 ng/mL (0.0-4.7)
--- NOTE | 2020-03-21 14:12 | PDOC ---
G I PROGRESS NOTE Subjective Pain at drain site. Few spontaneous complaints otherwise. Objective Per staff, 3 bloody stools this morning. Physical Exam Lugns clear. RRR, tachy. Abdomen soft, tender near drain. Drain output currently thin, watery, faintly bilious? Fluid studies pending. Review of Relevant I have reviewed the following items clarisse (where applicable) has been applied. Labs Laboratory Tests Test 03/19/20 15:25 03/19/20 16:32 03/19/20 17:39 03/19/20 20:36 Lactic Acid Level 1.3 mmol/L (0.4-2.0) Glucose (Fingerstick) 281 mg/dL (70-99) 242 mg/dL (70-99) Hemoglobin 8.0 g/dL (13.0-17.5) Test 03/20/20 06:35 03/20/20 08:13 03/20/20 12:00 03/20/20 12:10 White Blood Count 12.6 x10^3/uL (4.0-11.0) Red Blood Count 2.58 x10^6/uL (4.30-5.70) Hemoglobin 7.4 g/dL (13.0-17.5) 7.4 g/dL (13.0-17.5) Hematocrit 21.7 % (39.0-53.0) Mean Corpuscular Volume 84 fL (79-100) Mean Corpuscular Hemoglobin 29 pg (25-35) Mean Corpuscular Hemoglobin Concent 34 g/dL (31-37) Red Cell Distribution Width 17.4 % (11.5-14.5) Platelet Count 63 x10^3/uL (140-400) Neutrophils (%) (Auto) 91 % (31-73) Lymphocytes (%) (Auto) 5 % (24-48) Monocytes (%) (Auto) 4 % (0-9) Eosinophils (%) (Auto) 0 % (0-3) Basophils (%) (Auto) 0 % (0-3) Neutrophils # (Auto) 11.5 x10^3/uL (1.8-7.7) Lymphocytes # (Auto) 0.6 x10^3/uL (1.0-4.8) Monocytes # (Auto) 0.4 x10^3/uL (0.0-1.1) Eosinophils # (Auto) 0.0 x10^3/uL (0.0-0.7) Basophils # (Auto) 0.0 x10^3/uL (0.0-0.2) Sodium Level 130 mmol/L (136-145) Potassium Level 3.9 mmol/L (3.5-5.1) Chloride Level 99 mmol/L (98-107) Carbon Dioxide Level 26 mmol/L (21-32) Anion Gap 5 (6-14) Blood Urea Nitrogen 30 mg/dL (8-26) Creatinine 1.5 mg/dL (0.7-1.3) Estimated GFR (Cockcroft-Gault) 47.7 BUN/Creatinine Ratio 20 (6-20) Glucose Level 233 mg/dL (70-99) Calcium Level 7.4 mg/dL (8.5-10.1) Magnesium Level 2.0 mg/dL (1.8-2.4) Total Bilirubin 0.6 mg/dL (0.2-1.0) Aspartate Amino Transf (AST/SGOT) 39 U/L (15-37) Alanine Aminotransferase (ALT/SGPT) 38 U/L (16-63) Alkaline Phosphatase 153 U/L (46-116) Total Protein 4.7 g/dL (6.4-8.2) Albumin 1.4 g/dL (3.4-5.0) Albumin/Globulin Ratio 0.4 (1.0-1.7) Glucose (Fingerstick) 217 mg/dL (70-99) 142 mg/dL (70-99) Test 03/20/20 17:31 03/20/20 17:35 03/20/20 20:54 03/20/20 23:51 Glucose (Fingerstick) 166 mg/dL (70-99) 157 mg/dL (70-99) 150 mg/dL (70-99) Hemoglobin 8.1 g/dL (13.0-17.5) Test 03/21/20 00:01 03/21/20 07:28 03/21/20 08:45 03/21/20 08:51 Hemoglobin 7.6 g/dL (13.0-17.5) 9.4 g/dL (13.0-17.5) White Blood Count 15.6 x10^3/uL (4.0-11.0) Red Blood Count 3.26 x10^6/uL (4.30-5.70) Hematocrit 28.0 % (39.0-53.0) Mean Corpuscular Volume 86 fL (79-100) Mean Corpuscular Hemoglobin 29 pg (25-35) Mean Corpuscular Hemoglobin Concent 34 g/dL (31-37) Red Cell Distribution Width 17.0 % (11.5-14.5) Platelet Count 122 x10^3/uL (140-400) Neutrophils (%) (Auto) 87 % (31-73) Lymphocytes (%) (Auto) 10 % (24-48) Monocytes (%) (Auto) 3 % (0-9) Eosinophils (%) (Auto) 0 % (0-3) Basophils (%) (Auto) 0 % (0-3) Neutrophils # (Auto) 13.5 x10^3/uL (1.8-7.7) Lymphocytes # (Auto) 1.6 x10^3/uL (1.0-4.8) Monocytes # (Auto) 0.4 x10^3/uL (0.0-1.1) Eosinophils # (Auto) 0.0 x10^3/uL (0.0-0.7) Basophils # (Auto) 0.0 x10^3/uL (0.0-0.2) Sodium Level 125 mmol/L (136-145) Potassium Level 4.8 mmol/L (3.5-5.1) Chloride Level 96 mmol/L (98-107) Carbon Dioxide Level 21 mmol/L (21-32) Anion Gap 8 (6-14) Blood Urea Nitrogen 26 mg/dL (8-26) Creatinine 1.3 mg/dL (0.7-1.3) Estimated GFR (Cockcroft-Gault) 56.3 Glucose Level 162 mg/dL (70-99) Calcium Level 8.2 mg/dL (8.5-10.1) Prothrombin Time 14.5 SEC (11.7-14.0) Prothromb Time International Ratio 1.2 (0.8-1.1) Glucose (Fingerstick) 123 mg/dL (70-99) Test 03/21/20 11:50 03/21/20 12:26 Hemoglobin 9.1 g/dL (13.0-17.5) Glucose (Fingerstick) 166 mg/dL (70-99) Laboratory Tests Test 03/20/20 17:31 03/20/20 17:35 03/20/20 20:54 03/20/20 23:51 Glucose (Fingerstick) 166 mg/dL (70-99) 157 mg/dL (70-99) 150 mg/dL (70-99) Hemoglobin 8.1 g/dL (13.0-17.5) Test 03/21/20 00:01 03/21/20 07:28 03/21/20 08:45 03/21/20 08:51 Hemoglobin 7.6 g/dL (13.0-17.5) 9.4 g/dL (13.0-17.5) White Blood Count 15.6 x10^3/uL (4.0-11.0) Red Blood Count 3.26 x10^6/uL (4.30-5.70) Hematocrit 28.0 % (39.0-53.0) Mean Corpuscular Volume 86 fL (79-100) Mean Corpuscular Hemoglobin 29 pg (25-35) Mean Corpuscular Hemoglobin Concent 34 g/dL (31-37) Red Cell Distribution Width 17.0 % (11.5-14.5) Platelet Count 122 x10^3/uL (140-400) Neutrophils (%) (Auto) 87 % (31-73) Lymphocytes (%) (Auto) 10 % (24-48) Monocytes (%) (Auto) 3 % (0-9) Eosinophils (%) (Auto) 0 % (0-3) Basophils (%) (Auto) 0 % (0-3) Neutrophils # (Auto) 13.5 x10^3/uL (1.8-7.7) Lymphocytes # (Auto) 1.6 x10^3/uL (1.0-4.8) Monocytes # (Auto) 0.4 x10^3/uL (0.0-1.1) Eosinophils # (Auto) 0.0 x10^3/uL (0.0-0.7) Basophils # (Auto) 0.0 x10^3/uL (0.0-0.2) Sodium Level 125 mmol/L (136-145) Potassium Level 4.8 mmol/L (3.5-5.1) Chloride Level 96 mmol/L (98-107) Carbon Dioxide Level 21 mmol/L (21-32) Anion Gap 8 (6-14) Blood Urea Nitrogen 26 mg/dL (8-26) Creatinine 1.3 mg/dL (0.7-1.3) Estimated GFR (Cockcroft-Gault) 56.3 Glucose Level 162 mg/dL (70-99) Calcium Level 8.2 mg/dL (8.5-10.1) Prothrombin Time 14.5 SEC (11.7-14.0) Prothromb Time International Ratio 1.2 (0.8-1.1) Glucose (Fingerstick) 123 mg/dL (70-99) Test 03/21/20 11:50 03/21/20 12:26 Hemoglobin 9.1 g/dL (13.0-17.5) Glucose (Fingerstick) 166 mg/dL (70-99) Microbiology 03/16/20 Blood Culture - Final, Complete NO GROWTH AFTER 5 DAYS Vitals/I & O Vital Sign - Last 24 Hours 03/20/20 03/20/20 03/20/20 03/20/20 14:31 15:00 15:43 15:45 Pulse 70 Resp 22 16 16 B/P (MAP) 107/68 (81) Pulse Ox 98 100 100 O2 Delivery Room Air Room Air Room Air Room Air 03/20/20 03/20/20 03/20/20 03/20/20 16:00 17:00 18:00 19:00 Temp 97.8 97.8 Pulse 71 74 85 84 Resp 16 16 18 13 B/P (MAP) 109/68 (82) 108/69 (82) 104/69 (81) 101/61 (74) Pulse Ox 100 100 100 100 O2 Delivery Room Air Room Air Room Air Room Air 03/20/20 03/20/20 03/20/20 03/20/20 20:00 20:00 20:51 20:52 Temp 97.7 97.7 Pulse 79 79 Resp 15 B/P (MAP) 111/78 (89) 111/78 Pulse Ox 100 100 O2 Delivery Room Air Room Air Room Air O2 Flow Rate 3.0 03/20/20 03/20/20 03/20/20 03/20/20 21:00 22:00 23:00 23:38 Pulse 87 82 84 Resp 21 20 16 B/P (MAP) 123/73 (90) 117/68 (84) 119/70 (86) Pulse Ox 100 100 100 100 O2 Delivery Room Air Room Air Room Air Room Air O2 Flow Rate 3.0 03/20/20 03/20/20 03/21/20 03/21/20 23:59 23:59 01:40 02:00 Temp 98.1 98.1 Pulse 84 82 88 Resp 16 16 16 B/P (MAP) 119/76 (90) 111/75 (87) 118/74 (89) Pulse Ox 96 100 98 O2 Delivery Room Air Room Air Room Air Room Air 03/21/20 03/21/20 03/21/20 03/21/20 02:24 03:16 03:25 04:00 Pulse 89 Resp 18 B/P (MAP) 122/71 (88) Pulse Ox 100 98 98 O2 Delivery Room Air Room Air Room Air Room Air O2 Flow Rate 3.0 3.0 03/21/20 03/21/20 03/21/20 03/21/20 04:00 04:35 04:35 05:00 Temp 98.4 98.4 Pulse 91 98 Resp 20 18 B/P (MAP) 128/77 (94) 130/77 (94) Pulse Ox 100 98 98 98 O2 Delivery Room Air Room Air Room Air Room Air O2 Flow Rate 3.0 3.0 03/21/20 03/21/20 03/21/20 03/21/20 06:00 07:00 08:00 08:00 Temp 99.2 99.2 Pulse 91 108 98 Resp 20 12 22 B/P (MAP) 143/83 (103) 147/86 (106) 144/83 (103) Pulse Ox 100 100 100 O2 Delivery Room Air Room Air Room Air Room Air 03/21/20 03/21/20 03/21/20 03/21/20 08:32 08:33 08:33 08:39 Pulse 106 106 B/P (MAP) 144/83 144/83 Pulse Ox 100 98 O2 Delivery Room Air Room Air 03/21/20 03/21/20 03/21/20 03/21/20 09:00 09:57 10:00 10:05 Pulse 110 Resp 23 14 14 11 B/P (MAP) 139/87 (104) Pulse Ox 100 100 100 O2 Delivery Room Air Nasal Cannula Nasal Cannula O2 Flow Rate 2.0 2.0 03/21/20 03/21/20 03/21/20 03/21/20 10:09 10:14 10:19 10:24 Pulse 103 104 106 104 Resp 12 14 14 20 B/P (MAP) 105/59 (74) 91/62 (72) 96/60 (72) Pulse Ox 100 100 100 100 O2 Delivery Nasal Cannula Nasal Cannula Nasal Cannula Nasal Cannula O2 Flow Rate 2.0 2.0 2.0 2.0 03/21/20 03/21/20 03/21/20 03/21/20 11:57 12:00 12:00 12:27 Temp 100.2 100.2 Pulse 126 Resp 29 B/P (MAP) 161/93 (115) Pulse Ox 97 97 97 O2 Delivery Room Air Room Air Room Air Room Air 03/21/20 03/21/20 13:00 13:31 Pulse 118 Resp 31 B/P (MAP) 154/91 (112) Pulse Ox 97 98 O2 Delivery Room Air Room Air Intake and Output 03/20/20 03/20/20 03/21/20 15:00 23:00 07:00 Intake Total 1180 ml 1046 ml 786 ml Output Total 525 ml 725 ml 625 ml Balance 655 ml 321 ml 161 ml Problem List Problems Medical Problems: (1) Acute kidney injury Status: Acute (2) Encephalopathy Status: Acute (3) Hypoglycemia Status: Acute (4) Hyponatremia Status: Acute (5) Seizure Status: Acute Assessment Liver abcess. Known to [facility]? Source would seem related to biliary interventions recently from available data (scant). Continued pneumobilia, so should have patent stent. Rectal bleeding, stable hemodynamically and unclear high probability of scan to localize. Has history of possible normal colonoscopy ~2012. Recent operative bile leak; more than that? Again unclear from history, scant data. GERD, no prior EGD. Plan of Care Note Will try bleeding scan. Continue other. Will again request records from [facility]. Transfuse prn. Await fluid studies from abcess. Justicifation of Admission Dx: Justifications for Admission: Justification of Admission Dx: Yes JAGDISH SEYMOUR MD Mar 21, 2020 14:12
[2020-03-21] MEDS ORDERED: HEPARIN for NUC MED 500 UNIT/5 ML DISP.SYRIN. IV ONE (14:45)
--- NOTE | 2020-03-21 16:21 | NUR ---
SS following up with discharge planning. SS reviewed pt chart and discussed with pt RN. Pt is currently on room air. PT/OT ordered. COVID19 negative. Pt on IV Rocephin. Per RN, drain placed today and pt having bleeding scan. PPN stopped. SS will continue to follow for discharge planning.
--- NOTE | 2020-03-21 16:47 | RAD ---
Exam: Chest one view INDICATION: Chest pain TECHNIQUE: Frontal view of the chest Comparisons: 03/21/2020 FINDINGS: Right IJ catheter with tip in the SVC. The cardiomediastinal silhouette and pulmonary vessels are within normal limits. Hazy opacity at the lung bases bilaterally. No pleural effusion. IMPRESSION: Hazy bibasilar airspace disease may relate to mild pulmonary edema. Electronically signed by: Alma Garcia MD (03/21/2020 4:44 PM) [id number]
[2020-03-21] MEDS ORDERED: ACETAMINOPHEN 325 MG TABLET. PO ONE (17:15)
[2020-03-21] MEDS: ACETAMINOPHEN 650 MG SUPP.RECT. PR PRN (17:29)
--- NOTE | 2020-03-21 17:51 | RAD ---
RADIONUCLIDE TAGGED RBC SCAN Clinical History: Rectal bleeding x3 days. Technique: 30 mCi Tc-99m labeled red blood cells prepared with Ultratag technique were administered intravenously. Anterior dynamic images of the abdomen were obtained for 60 minutes. Findings: There is tracer seen within the vascular pool. There is no accumulation or propagation of tracer to suggest an active bleed. IMPRESSION: No evidence of acute GI bleed. Electronically signed by: Yuniel Arevalo MD (03/21/2020 5:49 PM) [id number]
[2020-03-21] MEDS: HALOPERIDOL LACTATE 5 MG/ML VIAL. IVP PRN (18:05)
--- NOTE | 2020-03-21 18:19 | NUR ---
Pt went to bleeding scan from [id number]. When pt got back from scan, he repeatedly asked for his tobin catheter out. This RN educated pt on the need for catheter due to pt being critically ill. Pt became verbally aggressive to RN-- Called RN "Nicolasch". Pt has been very impulsive all day-- getting up out of chair/bed without supervision regardless of education on the call light. Chair and bed alarm have remained on all day. Once pt became verbally aggressive with RN this evening, pt was placed back into bed and given PRN medications. 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 Pt stating pain in lower back, right chest, and tobin catheter area today. Will page the environmental aide doctor for new orders.
--- NOTE | 2020-03-21 18:37 | NUR ---
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 Pain uncontrolled.
[2020-03-21] MEDS: IV NORMAL SALINE 1000ML BAG 1,000 ML IV SCH (19:00)
[2020-03-21] MEDS: ATORVASTATIN CALCIUM 20 MG TABLET PO SCH (21:16)
[2020-03-21] MEDS: INSULIN GLARGINE SYRINGE. SQ SCH (21:19)
[2020-03-22] VITALS (12 sets, daily range): BP systolic 103–147; BP diastolic 56–76
[2020-03-22] MEDS: HYDROmorphone 2 MG/ML VIAL IVP PRN ×6 (00:07→13:11)
[2020-03-22 00:21] LABS: RED BLOOD COUNT 2.34 x10^6/uL (4.30-5.70); RED CELL DISTRIBUTION WIDTH 16.5 % (11.5-14.5); WHITE BLOOD COUNT 7.5 x10^3/uL (4.0-11.0)
[2020-03-22 00:23] LABS: HEMOGLOBIN 6.8 g/dL (13.0-17.5)
[2020-03-22 00:24] LABS: HEMATOCRIT 19.8 % (39.0-53.0)
[2020-03-22 06:13] LABS: BASO # 0.1 x10^3/uL (0.0-0.2); BASO % 1 % (0-3); EOS # 0.1 x10^3/uL (0.0-0.7); EOS % 2 % (0-3); HEMATOCRIT 22.7 % (39.0-53.0); HEMOGLOBIN 7.8 g/dL (13.0-17.5); LYMPH # 1.1 x10^3/uL (1.0-4.8); LYMPH % 12 % (24-48); MEAN CORPUSCULAR HEMOGLOBIN 29 pg (25-35); MEAN CORPUSCULAR HGB CONC 34 g/dL (31-37); MEAN CORPUSCULAR VOLUME 85 fL (79-100); MONO # 0.4 x10^3/uL (0.0-1.1); MONO % 5 % (0-9); NEUT # 7.3 x10^3/uL (1.8-7.7); NEUT % 81 % (31-73); PLATELET COUNT 86 x10^3/uL (140-400); RED BLOOD COUNT 2.66 x10^6/uL (4.30-5.70); RED CELL DISTRIBUTION WIDTH 15.9 % (11.5-14.5)
[2020-03-22 06:21] LABS: CALCIUM 7.3 mg/dL (8.5-10.1); CREATININE 1.1 mg/dL (0.7-1.3); GFR 68.3; MAGNESIUM 1.5 mg/dL (1.8-2.4); PHOSPHORUS 2.7 mg/dL (2.6-4.7); POTASSIUM 3.9 mmol/L (3.5-5.1)
[2020-03-22] MEDS: INSULIN LISPRO 300 UNITS/3 ML VIAL. SQ SCH ×4 (07:30→21:00)
[2020-03-22] MEDS: IPRATRPIUM/ALBUTEROL 0.5/2.5MG 3 ML NEBU. NEB SCH ×4 (07:41→19:26)
[2020-03-22] MEDS: BUDESONIDE 0.5 MG/2 ML NEBU. NEB SCH ×2 (07:41→19:27)
--- NOTE | 2020-03-22 07:41 | PDOC ---
Infectious Disease Note Subjective Subjective Has some back pain but less. Chronic in nature Continues to have bloody stool Has some abdominal discomfort left lower quadrant with drain but ok No fevers ROS ROS O/w neg Vital Sign Vital Signs Vital Signs Date Time Temp Pulse Resp B/P (MAP) Pulse Ox O2 Delivery O2 Flow Rate FiO2 03/22/20 06:00 98 18 126/69 (88) 96 Room Air 03/22/20 05:24 2.0 03/22/20 04:00 97.8 97.8 Physical Exam PHYSICAL EXAM GENERAL: Alert, awake, in bed , coop but somewhat confused. HEENT: Normocephalic, atraumatic, anicteric. Oral mucosa dry. No thrush. NECK: Supple. Right IJ present LUNGS: Decreased breath sounds at bases. No wheezing. No accessory muscle use. HEART: S1, S2 regular. No murmurs. ABDOMEN: Mildly distended. Bowel sounds present, nontender, no rebound, no guarding. JULIA with serous fluid EXTREMITIES: No edema, no cyanosis. NEUROLOGIC: Alert, awake, somewhat confused. PSYCHIATRIC: Cooperative. SKIN: no rash Labs Lab Laboratory Tests Test 03/21/20 08:45 03/21/20 08:51 03/21/20 11:50 03/21/20 12:26 Prothrombin Time 14.5 SEC (11.7-14.0) Prothromb Time International Ratio 1.2 (0.8-1.1) Glucose (Fingerstick) 123 mg/dL (70-99) 166 mg/dL (70-99) Hemoglobin 9.1 g/dL (13.0-17.5) Test 03/21/20 17:06 03/21/20 18:10 03/21/20 21:18 03/22/20 00:00 Glucose (Fingerstick) 150 mg/dL (70-99) 191 mg/dL (70-99) Hemoglobin 7.7 g/dL (13.0-17.5) 6.8 g/dL (13.0-17.5) White Blood Count 7.5 x10^3/uL (4.0-11.0) Red Blood Count 2.34 x10^6/uL (4.30-5.70) Hematocrit 19.8 % (39.0-53.0) Mean Corpuscular Volume 85 fL (79-100) Mean Corpuscular Hemoglobin 29 pg (25-35) Mean Corpuscular Hemoglobin Concent 34 g/dL (31-37) Red Cell Distribution Width 16.5 % (11.5-14.5) Platelet Count 84 x10^3/uL (140-400) Test 03/22/20 05:55 White Blood Count 9.0 x10^3/uL (4.0-11.0) Red Blood Count 2.66 x10^6/uL (4.30-5.70) Hemoglobin 7.8 g/dL (13.0-17.5) Hematocrit 22.7 % (39.0-53.0) Mean Corpuscular Volume 85 fL (79-100) Mean Corpuscular Hemoglobin 29 pg (25-35) Mean Corpuscular Hemoglobin Concent 34 g/dL (31-37) Red Cell Distribution Width 15.9 % (11.5-14.5) Platelet Count 86 x10^3/uL (140-400) Neutrophils (%) (Auto) 81 % (31-73) Lymphocytes (%) (Auto) 12 % (24-48) Monocytes (%) (Auto) 5 % (0-9) Eosinophils (%) (Auto) 2 % (0-3) Basophils (%) (Auto) 1 % (0-3) Neutrophils # (Auto) 7.3 x10^3/uL (1.8-7.7) Lymphocytes # (Auto) 1.1 x10^3/uL (1.0-4.8) Monocytes # (Auto) 0.4 x10^3/uL (0.0-1.1) Eosinophils # (Auto) 0.1 x10^3/uL (0.0-0.7) Basophils # (Auto) 0.1 x10^3/uL (0.0-0.2) Sodium Level 127 mmol/L (136-145) Potassium Level 3.9 mmol/L (3.5-5.1) Chloride Level 97 mmol/L (98-107) Carbon Dioxide Level 26 mmol/L (21-32) Anion Gap 4 (6-14) Blood Urea Nitrogen 18 mg/dL (8-26) Creatinine 1.1 mg/dL (0.7-1.3) Estimated GFR (Cockcroft-Gault) 68.3 Glucose Level 128 mg/dL (70-99) Calcium Level 7.3 mg/dL (8.5-10.1) Phosphorus Level 2.7 mg/dL (2.6-4.7) Magnesium Level 1.5 mg/dL (1.8-2.4) Micro Microbiology 03/16/20 Blood Culture - Final, Complete NO GROWTH AFTER 5 DAYS Objective Assessment 1. Severe Sepsis present on admission from gram-negative bacteremia.03/15 03/16 - neg 2. E Coli bacteremia ? intrabdominal source s/p abscess drain 03/21 3. Leukocytosis and lactic acidosis.Solumedrol - 03/18/PRBCs 4. Anemia, status post PRBC.03/21- bleed scan neg 03/21 5. Hyponatremia. 6. Encephalopathy - resolving, likely metabolic, CT head negative 7. History of renal cancer.S/P Nephrectomy 8. Abnormal LFTs ,Liver mass 9. History of ALLERGIES TO CLINDAMYCIN AND LEVAQUIN. 10. Recent placement of metallic stent 11. Thrombocytopenia - better? Sepsis vs other 12 COVID-19 neg 03/19 Plan Plan of Care Ceftriaxone 03/20 F/u IR cults Follow up repeat blood cultures. Negative so far F/U AM labs. Electrolytes per primary Maintain aspiration precaution. Local wound care as directed Discussed with nursing staff DC meropenem 03/18 - 03/20 previous Zosyn 03/17- 03/18. Dose Rocephin 03/16 GRIS CASAS MD Mar 22, 2020 07:41
[2020-03-22] MEDS: PANTOPRAZOLE IV PUSH 40 MG VIAL. IVP SCH ×2 (08:27→16:43)
[2020-03-22] MEDS: MONTELUKAST SODIUM 10 MG TABLET. PO SCH (08:29)
[2020-03-22] MEDS: LINAGLIPTIN 5 MG TABLET PO SCH (08:29)
[2020-03-22] MEDS: DULoxetine HCL 30 MG CAPSULE.DR PO SCH ×2 (08:29→21:00)
[2020-03-22] MEDS: amLODIPine BESYLATE 10 MG TABLET PO SCH (08:30)
[2020-03-22] MEDS: METOPROLOL TART IMMED RELEASE 25 MG TABLET. PO SCH ×2 (08:31→21:00)
[2020-03-22] MEDS: cefTRIAXone IV Push 2 GM VIAL. IVP SCH (08:54)
--- NOTE | 2020-03-22 09:30 | RAD ---
03/22/2020 7:25 AM Procedure: CT-guided drainage right, hepatic abscess Clinical Indication: Evaluation liver mass/fluid collection for possible percutaneous biopsy katia Discussion: The procedure was explained in its entirety to the patient or the patients designated pharmacy services representative by a member of the treatment team, including a discussion of the risks, benefits and commonly accepted alternatives to the procedure, as well as the expected consequences of no therapy whatsoever. Discussion of the risks included, but was not limited to, those that are most frequent and those that are rare but possibly severe or life-threatening, as well as the possibility of unforeseen complications. All elements of maximal sterile barrier technique including the use of a cap, mask, sterile gown, sterile gloves, large sterile sheet, appropriate hand hygiene, and 2% chlorhexidine for cutaneous antisepsis (or acceptable alternative antiseptic per current guidelines) were followed for this procedure. CT imaging redemonstrates a hypodense collection in the right liver concerning for abscess given history of biliary intervention, biliary stent, prior bilateral lungs. The overlying skin was prepped and draped as described. 1% lidocaine was administered for local anesthesia. Under intermittent CT guidance a 17-gauge needle was advanced into the collection. Somewhat turbid fluid was aspirated. A guidewire was advanced into the collection, over which, following dilatation a 10 [place] drain was placed. Approximately 100 cc of turbid fluid was aspirated. Samples were sent for Gram stain and culture. The catheter was secured in place. Sterile dressings were applied. No immediate complication was identified. The procedures performed under conscious sedation including continuous cardiopulmonary monitoring via dedicated sedation nurse. [id number] sedation time: 30 minutes Impression: CT-guided drainage, hepatic abscess PQRS Compliance Statement: One or more of the following individualized dose reduction techniques were utilized for this examination: 1. Automated exposure control 2. Adjustment of the mA and/or kV according to patient size 3. Use of iterative reconstruction technique
[2020-03-22] MEDS: IV NORMAL SALINE 1000ML BAG 1,000 ML IV SCH ×3 (10:44→23:02)
--- NOTE | 2020-03-22 10:53 | PDOC ---
PULMONARY PROGRESS NOTES Subjective on RA doing well GI bleed mental status improved no wheezing Vitals Vital Signs Date Time Temp Pulse Resp B/P (MAP) Pulse Ox O2 Delivery O2 Flow Rate FiO2 03/22/20 10:40 96 Room Air 03/22/20 10:00 88 106/60 (75) 03/22/20 08:32 22 03/22/20 08:00 99.0 99.0 03/22/20 05:24 2.0 General: Alert, No acute distress Lungs: Clear Cardiovascular: S1 Abdomen: Soft, Other (obese) Neuro Exam: Alert Extremities: Other (1=edema) Labs Laboratory Tests Test 03/20/20 12:00 03/20/20 12:10 03/20/20 17:31 03/20/20 17:35 Hemoglobin 7.4 g/dL (13.0-17.5) 8.1 g/dL (13.0-17.5) Glucose (Fingerstick) 142 mg/dL (70-99) 166 mg/dL (70-99) Test 03/20/20 20:54 03/20/20 23:51 03/21/20 00:01 03/21/20 07:28 Glucose (Fingerstick) 157 mg/dL (70-99) 150 mg/dL (70-99) Hemoglobin 7.6 g/dL (13.0-17.5) 9.4 g/dL (13.0-17.5) White Blood Count 15.6 x10^3/uL (4.0-11.0) Red Blood Count 3.26 x10^6/uL (4.30-5.70) Hematocrit 28.0 % (39.0-53.0) Mean Corpuscular Volume 86 fL (79-100) Mean Corpuscular Hemoglobin 29 pg (25-35) Mean Corpuscular Hemoglobin Concent 34 g/dL (31-37) Red Cell Distribution Width 17.0 % (11.5-14.5) Platelet Count 122 x10^3/uL (140-400) Neutrophils (%) (Auto) 87 % (31-73) Lymphocytes (%) (Auto) 10 % (24-48) Monocytes (%) (Auto) 3 % (0-9) Eosinophils (%) (Auto) 0 % (0-3) Basophils (%) (Auto) 0 % (0-3) Neutrophils # (Auto) 13.5 x10^3/uL (1.8-7.7) Lymphocytes # (Auto) 1.6 x10^3/uL (1.0-4.8) Monocytes # (Auto) 0.4 x10^3/uL (0.0-1.1) Eosinophils # (Auto) 0.0 x10^3/uL (0.0-0.7) Basophils # (Auto) 0.0 x10^3/uL (0.0-0.2) Sodium Level 125 mmol/L (136-145) Potassium Level 4.8 mmol/L (3.5-5.1) Chloride Level 96 mmol/L (98-107) Carbon Dioxide Level 21 mmol/L (21-32) Anion Gap 8 (6-14) Blood Urea Nitrogen 26 mg/dL (8-26) Creatinine 1.3 mg/dL (0.7-1.3) Estimated GFR (Cockcroft-Gault) 56.3 Glucose Level 162 mg/dL (70-99) Calcium Level 8.2 mg/dL (8.5-10.1) Test 03/21/20 08:45 03/21/20 08:51 03/21/20 11:50 03/21/20 12:26 Prothrombin Time 14.5 SEC (11.7-14.0) Prothromb Time International Ratio 1.2 (0.8-1.1) Glucose (Fingerstick) 123 mg/dL (70-99) 166 mg/dL (70-99) Hemoglobin 9.1 g/dL (13.0-17.5) Test 03/21/20 17:06 03/21/20 18:10 03/21/20 21:18 03/22/20 00:00 Glucose (Fingerstick) 150 mg/dL (70-99) 191 mg/dL (70-99) Hemoglobin 7.7 g/dL (13.0-17.5) 6.8 g/dL (13.0-17.5) White Blood Count 7.5 x10^3/uL (4.0-11.0) Red Blood Count 2.34 x10^6/uL (4.30-5.70) Hematocrit 19.8 % (39.0-53.0) Mean Corpuscular Volume 85 fL (79-100) Mean Corpuscular Hemoglobin 29 pg (25-35) Mean Corpuscular Hemoglobin Concent 34 g/dL (31-37) Red Cell Distribution Width 16.5 % (11.5-14.5) Platelet Count 84 x10^3/uL (140-400) Test 03/22/20 05:55 White Blood Count 9.0 x10^3/uL (4.0-11.0) Red Blood Count 2.66 x10^6/uL (4.30-5.70) Hemoglobin 7.8 g/dL (13.0-17.5) Hematocrit 22.7 % (39.0-53.0) Mean Corpuscular Volume 85 fL (79-100) Mean Corpuscular Hemoglobin 29 pg (25-35) Mean Corpuscular Hemoglobin Concent 34 g/dL (31-37) Red Cell Distribution Width 15.9 % (11.5-14.5) Platelet Count 86 x10^3/uL (140-400) Neutrophils (%) (Auto) 81 % (31-73) Lymphocytes (%) (Auto) 12 % (24-48) Monocytes (%) (Auto) 5 % (0-9) Eosinophils (%) (Auto) 2 % (0-3) Basophils (%) (Auto) 1 % (0-3) Neutrophils # (Auto) 7.3 x10^3/uL (1.8-7.7) Lymphocytes # (Auto) 1.1 x10^3/uL (1.0-4.8) Monocytes # (Auto) 0.4 x10^3/uL (0.0-1.1) Eosinophils # (Auto) 0.1 x10^3/uL (0.0-0.7) Basophils # (Auto) 0.1 x10^3/uL (0.0-0.2) Sodium Level 127 mmol/L (136-145) Potassium Level 3.9 mmol/L (3.5-5.1) Chloride Level 97 mmol/L (98-107) Carbon Dioxide Level 26 mmol/L (21-32) Anion Gap 4 (6-14) Blood Urea Nitrogen 18 mg/dL (8-26) Creatinine 1.1 mg/dL (0.7-1.3) Estimated GFR (Cockcroft-Gault) 68.3 Glucose Level 128 mg/dL (70-99) Calcium Level 7.3 mg/dL (8.5-10.1) Phosphorus Level 2.7 mg/dL (2.6-4.7) Magnesium Level 1.5 mg/dL (1.8-2.4) Laboratory Tests Test 03/21/20 11:50 03/21/20 12:26 03/21/20 17:06 03/21/20 18:10 Hemoglobin 9.1 g/dL (13.0-17.5) 7.7 g/dL (13.0-17.5) Glucose (Fingerstick) 166 mg/dL (70-99) 150 mg/dL (70-99) Test 03/21/20 21:18 03/22/20 00:00 03/22/20 05:55 Glucose (Fingerstick) 191 mg/dL (70-99) White Blood Count 7.5 x10^3/uL (4.0-11.0) 9.0 x10^3/uL (4.0-11.0) Red Blood Count 2.34 x10^6/uL (4.30-5.70) 2.66 x10^6/uL (4.30-5.70) Hemoglobin 6.8 g/dL (13.0-17.5) 7.8 g/dL (13.0-17.5) Hematocrit 19.8 % (39.0-53.0) 22.7 % (39.0-53.0) Mean Corpuscular Volume 85 fL (79-100) 85 fL (79-100) Mean Corpuscular Hemoglobin 29 pg (25-35) 29 pg (25-35) Mean Corpuscular Hemoglobin Concent 34 g/dL (31-37) 34 g/dL (31-37) Red Cell Distribution Width 16.5 % (11.5-14.5) 15.9 % (11.5-14.5) Platelet Count 84 x10^3/uL (140-400) 86 x10^3/uL (140-400) Neutrophils (%) (Auto) 81 % (31-73) Lymphocytes (%) (Auto) 12 % (24-48) Monocytes (%) (Auto) 5 % (0-9) Eosinophils (%) (Auto) 2 % (0-3) Basophils (%) (Auto) 1 % (0-3) Neutrophils # (Auto) 7.3 x10^3/uL (1.8-7.7) Lymphocytes # (Auto) 1.1 x10^3/uL (1.0-4.8) Monocytes # (Auto) 0.4 x10^3/uL (0.0-1.1) Eosinophils # (Auto) 0.1 x10^3/uL (0.0-0.7) Basophils # (Auto) 0.1 x10^3/uL (0.0-0.2) Sodium Level 127 mmol/L (136-145) Potassium Level 3.9 mmol/L (3.5-5.1) Chloride Level 97 mmol/L (98-107) Carbon Dioxide Level 26 mmol/L (21-32) Anion Gap 4 (6-14) Blood Urea Nitrogen 18 mg/dL (8-26) Creatinine 1.1 mg/dL (0.7-1.3) Estimated GFR (Cockcroft-Gault) 68.3 Glucose Level 128 mg/dL (70-99) Calcium Level 7.3 mg/dL (8.5-10.1) Phosphorus Level 2.7 mg/dL (2.6-4.7) Magnesium Level 1.5 mg/dL (1.8-2.4) Medications Active Scripts Medications Dose Route/Sig Max Daily Dose Days Date Category Dose Instructions Etodolac 400 Mg Tablet 1 Tab PO BID 03/16/20 Reported Ondansetron Hcl 8 Mg Tablet 8 Mg PO BID PRN 03/16/20 Reported Oxycodone Hcl Immed.release (Oxycodone Hcl) 15 Mg Tablet 15 Mg PO PRN Q6HRS PRN 03/16/20 Reported Miralax (Polyethylene Glycol 3350) 17 Gm Powd.pack 1 Pkt PO PRN DAILY PRN 04/17/18 Rx Montelukast Sodium Tablet (Montelukast Sodium) 10 Mg Tablet 10 Mg PO DAILY 04/14/18 Reported Basaglar Kwikpen U-100 (Insulin Glargine,Hum.rec.anlog) 100 Unit/1 Ml Insuln.pen 50 Unit SQ HS 04/14/18 Reported Prilosec Otc (Omeprazole Magnesium) 20 Mg Tablet.dr 1 Tab PO DAILY 02/08/16 Reported Novolog Flexpen (Insulin Aspart) 100 Unit/1 Ml Insuln.pen 1 Unit SQ 11/17/15 Reported 15-20 UNITS WITH MEALS TO MAX OF 80 UNITS DAILY Atorvastatin Calcium 20 Mg Tablet 1 Tab PO DAILY 11/17/15 Reported Januvia (Sitagliptin Phosphate) 50 Mg Tablet 1 Tab PO DAILY 11/17/15 Reported Tizanidine Hcl 4 Mg Tablet 1 Tab PO Q6HRS PRN 11/17/15 Reported can have 1-2 tabs Lidoderm (Lidocaine) 700 Mg Adh..patch 1 Patch TP DAILY PRN 11/17/15 Reported Ativan (Lorazepam) 1 Mg Tablet 1 Mg PO BID PRN 11/17/15 Reported Amlodipine Besylate 10 Mg Tablet 10 Mg PO DAILY 11/17/15 Reported Atenolol 25 Mg Tablet 1 Tab PO DAILY 11/17/15 Reported Voltaren (Diclofenac Sodium) 100 Gm Gel..gram. 1 Gm TP QID PRN 11/17/15 Reported Ventolin Hfa Inhaler (Albuterol Sulfate) 18 Gm Hfa.aer.ad 2 Puff IH PRN Q4-6HRS 11/17/15 Reported Cymbalta (Duloxetine Hcl) 60 Mg Capsule.dr 60 Mg PO BID 11/17/15 Reported Impression . 1. Acute respiratory failure with audible upper airway wheezing. Resolved. Etiology not so obvious. Could be related to reactive airway disease. Other less likely possibility would be a transfusion related acute reaction. The patient has no known asthma. less likely tracheal stenosis, Possibility of vocal cord dysfunction secondary to anxiety would also be a consideration. 2. Anemia, status post transfusion.on going GI bleed 3. Hypoglycemic encephalopathy, present on admission , improved 4. Chronic kidney disease. 5. Abnormal ct chest with basal atelectasis/ vs pneumonia 6. Liver mass vs abscess 7. Fever, COVID P 8. Abnormal D-Dimer , could be related to Liver abscess vs cancer. on RA. no suspicion for PE, Neg dopplers Plan . 1. pulmonary samuel better 2. off Nasal canula, off BIPAP 3. We will continue DuoNebs. 4. Pulmicort nebulizer. 5. Tx PRN, GI rec 6. Continue antibiotics. 7. s/p liver aspiration. f/u results 8. We will monitor for any further fever. The patient has been tested COVID negative x 3 recently. Discussed with RN and Dr. Duval. 9. dopplers lower extremity neg RAHEEM GAMA MD Mar 22, 2020 10:53
--- NOTE | 2020-03-22 10:57 | PDOC ---
JOSE JUAN RAMÍREZ CUSTOM SHOEMAKER 03/22/20 1057: CARDIO Progress Notes Date and Time Date of Service 03/22/2020 Time of Evaluation 0920 Subjective Subjective: No Chest Pain, No shortness of breath, No Palpitations Vitals Vitals Vital Signs Date Time Temp Pulse Resp B/P (MAP) Pulse Ox O2 Delivery O2 Flow Rate FiO2 03/22/20 10:40 96 Room Air 03/22/20 10:00 88 106/60 (75) 03/22/20 08:32 22 03/22/20 08:00 99.0 99.0 03/22/20 05:24 2.0 Weight Weight [ ] Input and Output Intake and Output Intake and Output 03/22/20 07:00 Intake Total 831 ml Output Total 3715 ml Balance -2884 ml Intake Oral 240 ml IV Total 491 ml Blood Product IV Normal Saline Flush 100 ml Output Urine Total 3385 ml Drainage Total 330 ml # Bowel Movements 3 Laboratory Labs Laboratory Tests Test 03/21/20 11:50 03/21/20 12:26 03/21/20 17:06 03/21/20 18:10 Hemoglobin 9.1 g/dL (13.0-17.5) 7.7 g/dL (13.0-17.5) Glucose (Fingerstick) 166 mg/dL (70-99) 150 mg/dL (70-99) Test 03/21/20 21:18 03/22/20 00:00 03/22/20 05:55 Glucose (Fingerstick) 191 mg/dL (70-99) White Blood Count 7.5 x10^3/uL (4.0-11.0) 9.0 x10^3/uL (4.0-11.0) Red Blood Count 2.34 x10^6/uL (4.30-5.70) 2.66 x10^6/uL (4.30-5.70) Hemoglobin 6.8 g/dL (13.0-17.5) 7.8 g/dL (13.0-17.5) Hematocrit 19.8 % (39.0-53.0) 22.7 % (39.0-53.0) Mean Corpuscular Volume 85 fL (79-100) 85 fL (79-100) Mean Corpuscular Hemoglobin 29 pg (25-35) 29 pg (25-35) Mean Corpuscular Hemoglobin Concent 34 g/dL (31-37) 34 g/dL (31-37) Red Cell Distribution Width 16.5 % (11.5-14.5) 15.9 % (11.5-14.5) Platelet Count 84 x10^3/uL (140-400) 86 x10^3/uL (140-400) Neutrophils (%) (Auto) 81 % (31-73) Lymphocytes (%) (Auto) 12 % (24-48) Monocytes (%) (Auto) 5 % (0-9) Eosinophils (%) (Auto) 2 % (0-3) Basophils (%) (Auto) 1 % (0-3) Neutrophils # (Auto) 7.3 x10^3/uL (1.8-7.7) Lymphocytes # (Auto) 1.1 x10^3/uL (1.0-4.8) Monocytes # (Auto) 0.4 x10^3/uL (0.0-1.1) Eosinophils # (Auto) 0.1 x10^3/uL (0.0-0.7) Basophils # (Auto) 0.1 x10^3/uL (0.0-0.2) Sodium Level 127 mmol/L (136-145) Potassium Level 3.9 mmol/L (3.5-5.1) Chloride Level 97 mmol/L (98-107) Carbon Dioxide Level 26 mmol/L (21-32) Anion Gap 4 (6-14) Blood Urea Nitrogen 18 mg/dL (8-26) Creatinine 1.1 mg/dL (0.7-1.3) Estimated GFR (Cockcroft-Gault) 68.3 Glucose Level 128 mg/dL (70-99) Calcium Level 7.3 mg/dL (8.5-10.1) Phosphorus Level 2.7 mg/dL (2.6-4.7) Magnesium Level 1.5 mg/dL (1.8-2.4) Microbiology Micro Microbiology 03/16/20 Blood Culture - Final, Complete NO GROWTH AFTER 5 DAYS Review of Systems Constitutional: yes: other (CONFUSED) Physical Exam HEENT: Neck Supple W Full Motion Chest: Symmetric LUNGS: Other (diminished) Heart: RRR (sinus tachycardia) Abdomen: Other (soft) Extremities: No Edema Neurology: alert, oriented, follow commands Assessment Assessment 1. Acute diastolic CHF/pleural effusion: multifactorial induced by anemia, hypoalbuminemia and renal failure. EF and WM nml. appears compensated 2. Metabolic encephalopathy; mentation better 3. Sepsis/fever 4. Severe hypoalbuminemia 5. Mild transaminitis with hepatic mass with possible liver abscess: GI following 6. S/P lap jonelle with bile leak: S/P ERCP with biliary stent placement at [facility] 7. COLBY on CKD with hyponatremia: Cr normalized. Na 127 nephrology following 8. Normocytic anemia with GI bleed (melena/hematochezia):Post transfusion. Hgb trending down again 9. Recently noted PUD: prepyloric ulcers via EGD 03/10/2020 10. Hx of left nephrectomy r/t renal CA 11. HTN: controlled 12. DM2 with hypoglycemia 13. HLP 13. Mild troponin elevation: 0.085, no EKG chnages no cardiac symptoms. Type 2 demand mediated with multiple culprits above. 14. Reactive sinus tachycardia Recommendations 1. Continue metoprolol, no significant ectopies 2. Transfuse today. 3. Supportive care. Justicifation of Admission Dx: Justifications for Admission: Justification of Admission Dx: Yes VIRAL REY MD 03/22/202135: CARDIO Progress Notes Assessment Assessment Patient seen and examined. Agree with CHANNELER's assessment and plan, Ac on chr diastolic HF better compensarted. Being transfused today for anemia 2D echo showed normal LVF Slight trop elevation prob demand ischemia Tele did not show any significant arrhythmias Met encephalopathy improved Continue treatment of sepsis per JOSE JUAN LARSON APRN Mar 22, 2020 10:57 VIRAL REY MD Mar 22, 2020 21:36
--- NOTE | 2020-03-22 11:24 | PDOC ---
[employer] PROGRESS NOTE Chief Complaint Chief Complaint GI BLEED, TRANSFUSED hemoglobin currently 7.8 Hyponatremiaimproved to 127 Hepatic mass s/p IR biliary drainpending cultures History of renal cell carcinoma Altered mental status Recent placement of percutaneous biliary drain Severe sepsis Gram negative bacteremiacontinue ceftriaxone BLOOD CULTURE Final GRAM NEGATIVE RODS SEEN IN 1 OF 2 TOTAL BOTTLES, REPRESENTING 2 SETS COLLECTED (EACH SET ONLY HAS ONE BOTTLE). acute METABOLIC ENCEPHALOPATHY - improved COPD - will cont home nebs Large irregular hepatic mass. This is likely a necrotic metastasis. An abscess is not excluded. 6 is unchanged. Normocytic anemia with GI bleed (melena/hematochezia): Hgb 6.8 and just received 1U transfusion PUD: prepyloric ulcers via EGD 03/10/2020 Biliary stent and mild pneumobilia seen previously. Altered mental status CKD STAGE 3 with Cr 1.6-2.0 // baseline Recent placement of percutaneous biliary drain [facility] The left colon is collapsed. A stricture at the splenic flexure is possible. Apparently issues w/ confusion since cholecystectomy at on 12/25/19. Per nurse d/w , "drain" placed ~3 weeks after surgery, then "stent" placed ~1 week ago. ?bile leak Reported h/o hyponatremia per labs at . Liver biopsy 2009 from LEFT lobe of liver during w/u of renal cancer; cavernous hemangioma. Acute diastolic CHF with pleural effusioncontinue metoprolol per cardiology 03/20 HGB 7.4 H/H Q 8 HRS 03/[address] head neg , gi, gen surgery consult transfused, gi consult, gen surgery consult, [facility] critically ill/// old records requested CONT IV ROCEPHIN 03/20 Cardiac diet DNR Discussed with RN and SW Dispo pending transfer to 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 She notes he has had a progressive decline over the last month or so. Patient is encephalopathic and unable to answer questions. Patient given glucagon prior to arrival and blood sugar improved from 55-83. notes issues w/ confusion since cholecystectomy at on 12/25/19. notes an IR drain was placed after a readmission for worsening and remained in place for 3 weeks and was removed at the end of January, then he returned for common bile duct stent placement last week. She notes that she was told that he had a "small spot" on his liver at [facility] and that his sodium was "better" at 129 last week. She also notes he has lost 46# in the past 2 months and she is not aware of any diagnosis for him. Patient is not even speaking, he is moaning and writhing in bed. Has been tested 3x for covid 19 and negative with last check over a week ago. CXR with pulmonary vasculare congestion and CT head negative for acute process. Labs significant for WBC 17.2, Hb 8.2, platelets 244, INR 1.3, Na 123, K 4.7, BUN 49, Cr 3.4, Albumin 1.7, Glucose 97, Mg 1.7, AST 84, ALT 66, Alk phos 228, Bili 1.2. BNP [id number] Admitted to ICU for further care. 03/14/2020 Patient seen and examined bedside today. Patient is following commands and appears to be more awake. Patient did require frequent IV Dilaudid every hour of 0.5 mg. Pain is 8 out of 10 03/21/20 Patient seen and examined bedside today. Returned from IR drainage. Chest x- ray was reviewed for possible pneumothorax. Chest x-ray is stable without any signs of pneumothorax. 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 Patient does have a history of chronic pain that requires opioids for control. Okay for transfer to [facility]. Vitals/I&O Vitals/I&O: Vital Signs Date Time Temp Pulse Resp B/P (MAP) Pulse Ox O2 Delivery O2 Flow Rate FiO2 03/22/20 10:40 96 Room Air 03/22/20 10:00 88 106/60 (75) 03/22/20 08:32 22 03/22/20 08:00 99.0 99.0 03/22/20 05:24 2.0 I & O 03/21/20 03/21/20 03/22/20 15:00 23:00 07:00 Intake Total 731 ml 100 ml Output Total 1305 ml 1045 ml 1365 ml Balance -574 ml -1045 ml -1265 ml Physical Exam Physical Exam: GENERAL: Alert, awake, in bed , coop but somewhat confused. HEENT: Normocephalic, atraumatic, anicteric. Oral mucosa dry. No thrush. NECK: Supple. Right IJ present LUNGS: Decreased breath sounds at bases. No wheezing. No accessory muscle use. HEART: S1, S2 regular. No murmurs. ABDOMEN: Mildly distended. Bowel sounds present, nontender, no rebound, no guarding. JULIA with serous fluid EXTREMITIES: No edema, no cyanosis. NEUROLOGIC: Alert, awake, somewhat confused. PSYCHIATRIC: Cooperative. SKIN: no rash General: Alert, Oriented X3, Cooperative, No acute distress Heart: Regular rate Lungs: Clear Abdomen: Normal bowel sounds, Soft, No tenderness Extremities: No edema Skin: No significant lesion Labs Labs: Laboratory Tests Test 03/21/20 11:50 03/21/20 12:26 03/21/20 17:06 03/21/20 18:10 Hemoglobin 9.1 g/dL (13.0-17.5) 7.7 g/dL (13.0-17.5) Glucose (Fingerstick) 166 mg/dL (70-99) 150 mg/dL (70-99) Test 03/21/20 21:18 03/22/20 00:00 03/22/20 05:55 03/22/20 08:07 Glucose (Fingerstick) 191 mg/dL (70-99) 130 mg/dL (70-99) White Blood Count 7.5 x10^3/uL (4.0-11.0) 9.0 x10^3/uL (4.0-11.0) Red Blood Count 2.34 x10^6/uL (4.30-5.70) 2.66 x10^6/uL (4.30-5.70) Hemoglobin 6.8 g/dL (13.0-17.5) 7.8 g/dL (13.0-17.5) Hematocrit 19.8 % (39.0-53.0) 22.7 % (39.0-53.0) Mean Corpuscular Volume 85 fL (79-100) 85 fL (79-100) Mean Corpuscular Hemoglobin 29 pg (25-35) 29 pg (25-35) Mean Corpuscular Hemoglobin Concent 34 g/dL (31-37) 34 g/dL (31-37) Red Cell Distribution Width 16.5 % (11.5-14.5) 15.9 % (11.5-14.5) Platelet Count 84 x10^3/uL (140-400) 86 x10^3/uL (140-400) Neutrophils (%) (Auto) 81 % (31-73) Lymphocytes (%) (Auto) 12 % (24-48) Monocytes (%) (Auto) 5 % (0-9) Eosinophils (%) (Auto) 2 % (0-3) Basophils (%) (Auto) 1 % (0-3) Neutrophils # (Auto) 7.3 x10^3/uL (1.8-7.7) Lymphocytes # (Auto) 1.1 x10^3/uL (1.0-4.8) Monocytes # (Auto) 0.4 x10^3/uL (0.0-1.1) Eosinophils # (Auto) 0.1 x10^3/uL (0.0-0.7) Basophils # (Auto) 0.1 x10^3/uL (0.0-0.2) Sodium Level 127 mmol/L (136-145) Potassium Level 3.9 mmol/L (3.5-5.1) Chloride Level 97 mmol/L (98-107) Carbon Dioxide Level 26 mmol/L (21-32) Anion Gap 4 (6-14) Blood Urea Nitrogen 18 mg/dL (8-26) Creatinine 1.1 mg/dL (0.7-1.3) Estimated GFR (Cockcroft-Gault) 68.3 Glucose Level 128 mg/dL (70-99) Calcium Level 7.3 mg/dL (8.5-10.1) Phosphorus Level 2.7 mg/dL (2.6-4.7) Magnesium Level 1.5 mg/dL (1.8-2.4) Assessment and Plan Assessmemt and Plan Problems Medical Problems: (1) Acute kidney injury Status: Acute (2) Encephalopathy Status: Acute (3) Hypoglycemia Status: Acute (4) Hyponatremia Status: Acute (5) Seizure Status: Acute Comment Review of Relevant I have reviewed the following items clarisse (where applicable) has been applied. Medications: Current Medications Medications (Trade) Dose Ordered Sig/Tory Route PRN Reason Start Time Stop Time Status Last Admin Dose Admin Sodium Chloride 1,000 ml @ 75 mls/hr [id number] IV 03/21/20 19:00 03/22/20 10:44 Hydromorphone HCl (Dilaudid) 0.5 mg PRN Q1HR PRN IVP PAIN 03/21/20 21:00 03/22/20 10:40 Justicifation of Admission Dx: Justifications for Admission: Justification of Admission Dx: Yes MIRIAM LINDQUIST MD Mar 22, 2020 11:24
[2020-03-22] MEDS ORDERED: MAGNESIUM SULFATE 2GM 50 ML IV ONE ×2 (11:30→11:45)
--- NOTE | 2020-03-22 11:36 | PDOC ---
Renal-Progress Notes Subjective Notes Notes NO NEW COMPLAINTS History of Present Illness Hx of present illness STABLE Vitals Vitals Vital Signs Date Time Temp Pulse Resp B/P (MAP) Pulse Ox O2 Delivery O2 Flow Rate FiO2 03/22/20 10:40 96 Room Air 03/22/20 10:00 88 106/60 (75) 03/22/20 08:32 22 03/22/20 08:00 99.0 99.0 03/22/20 05:24 2.0 Weight Weight [ ] I.O. Intake and Output Intake and Output 03/22/20 07:00 Intake Total 831 ml Output Total 3715 ml Balance -2884 ml Intake Oral 240 ml IV Total 491 ml Blood Product IV Normal Saline Flush 100 ml Output Urine Total 3385 ml Drainage Total 330 ml # Bowel Movements 3 Labs Labs Laboratory Tests Test 03/21/20 11:50 03/21/20 12:26 03/21/20 17:06 03/21/20 18:10 Hemoglobin 9.1 g/dL (13.0-17.5) 7.7 g/dL (13.0-17.5) Glucose (Fingerstick) 166 mg/dL (70-99) 150 mg/dL (70-99) Test 03/21/20 21:18 03/22/20 00:00 03/22/20 05:55 03/22/20 08:07 Glucose (Fingerstick) 191 mg/dL (70-99) 130 mg/dL (70-99) White Blood Count 7.5 x10^3/uL (4.0-11.0) 9.0 x10^3/uL (4.0-11.0) Red Blood Count 2.34 x10^6/uL (4.30-5.70) 2.66 x10^6/uL (4.30-5.70) Hemoglobin 6.8 g/dL (13.0-17.5) 7.8 g/dL (13.0-17.5) Hematocrit 19.8 % (39.0-53.0) 22.7 % (39.0-53.0) Mean Corpuscular Volume 85 fL (79-100) 85 fL (79-100) Mean Corpuscular Hemoglobin 29 pg (25-35) 29 pg (25-35) Mean Corpuscular Hemoglobin Concent 34 g/dL (31-37) 34 g/dL (31-37) Red Cell Distribution Width 16.5 % (11.5-14.5) 15.9 % (11.5-14.5) Platelet Count 84 x10^3/uL (140-400) 86 x10^3/uL (140-400) Neutrophils (%) (Auto) 81 % (31-73) Lymphocytes (%) (Auto) 12 % (24-48) Monocytes (%) (Auto) 5 % (0-9) Eosinophils (%) (Auto) 2 % (0-3) Basophils (%) (Auto) 1 % (0-3) Neutrophils # (Auto) 7.3 x10^3/uL (1.8-7.7) Lymphocytes # (Auto) 1.1 x10^3/uL (1.0-4.8) Monocytes # (Auto) 0.4 x10^3/uL (0.0-1.1) Eosinophils # (Auto) 0.1 x10^3/uL (0.0-0.7) Basophils # (Auto) 0.1 x10^3/uL (0.0-0.2) Sodium Level 127 mmol/L (136-145) Potassium Level 3.9 mmol/L (3.5-5.1) Chloride Level 97 mmol/L (98-107) Carbon Dioxide Level 26 mmol/L (21-32) Anion Gap 4 (6-14) Blood Urea Nitrogen 18 mg/dL (8-26) Creatinine 1.1 mg/dL (0.7-1.3) Estimated GFR (Cockcroft-Gault) 68.3 Glucose Level 128 mg/dL (70-99) Calcium Level 7.3 mg/dL (8.5-10.1) Phosphorus Level 2.7 mg/dL (2.6-4.7) Magnesium Level 1.5 mg/dL (1.8-2.4) Micro Micro Microbiology 03/16/20 Blood Culture - Final, Complete NO GROWTH AFTER 5 DAYS Review of Systems Constitutional: yes: other (CONFUSED) Physical Exam General Appearance: no apparent distress Skin: warm Respiratory: bilateral CTA Heart: S1S2, RRR Abdomen: soft, bowel sounds present Genitourinary: bladder flat Extremities: pulses present Neurology: alert, oriented, follow commands Musculoskeletal: Osteoarthritis, Other (cervical stenosis; chronic opioid use) Assessment Assessment IMP COLBY RESOLVED CKD STAGE 3 WITH CR AT BASELINE ANEMIA HYPONATREMIA-BETTER LOW MAG HYPOGLYCEMIA MET ENCEPHALOPATHY LEUCOCYTOSIS MALNUTRITION PLAN REPLACE MG ENC PO REPEAT LABS IN AM WILL FOLLOW NADIR REILLY MD Mar 22, 2020 11:35
--- NOTE | 2020-03-22 12:13 | PDOC ---
G I PROGRESS NOTE Subjective Would like tobin out. Says no stools this morning. Would like to eat. CLD ordered. Objective Again requested records from [facility]; as yet, nothing from them. Physical Exam Lungs clear anteriorly. RRR Abdomen soft, tender near RUQ drain. Bowel sounds present. Review of Relevant I have reviewed the following items clarisse (where applicable) has been applied. Labs Laboratory Tests Test 03/20/20 12:10 03/20/20 17:31 03/20/20 17:35 03/20/20 20:54 Glucose (Fingerstick) 142 mg/dL (70-99) 166 mg/dL (70-99) 157 mg/dL (70-99) Hemoglobin 8.1 g/dL (13.0-17.5) Test 03/20/20 23:51 03/21/20 00:01 03/21/20 07:28 03/21/20 08:45 Glucose (Fingerstick) 150 mg/dL (70-99) Hemoglobin 7.6 g/dL (13.0-17.5) 9.4 g/dL (13.0-17.5) White Blood Count 15.6 x10^3/uL (4.0-11.0) Red Blood Count 3.26 x10^6/uL (4.30-5.70) Hematocrit 28.0 % (39.0-53.0) Mean Corpuscular Volume 86 fL (79-100) Mean Corpuscular Hemoglobin 29 pg (25-35) Mean Corpuscular Hemoglobin Concent 34 g/dL (31-37) Red Cell Distribution Width 17.0 % (11.5-14.5) Platelet Count 122 x10^3/uL (140-400) Neutrophils (%) (Auto) 87 % (31-73) Lymphocytes (%) (Auto) 10 % (24-48) Monocytes (%) (Auto) 3 % (0-9) Eosinophils (%) (Auto) 0 % (0-3) Basophils (%) (Auto) 0 % (0-3) Neutrophils # (Auto) 13.5 x10^3/uL (1.8-7.7) Lymphocytes # (Auto) 1.6 x10^3/uL (1.0-4.8) Monocytes # (Auto) 0.4 x10^3/uL (0.0-1.1) Eosinophils # (Auto) 0.0 x10^3/uL (0.0-0.7) Basophils # (Auto) 0.0 x10^3/uL (0.0-0.2) Sodium Level 125 mmol/L (136-145) Potassium Level 4.8 mmol/L (3.5-5.1) Chloride Level 96 mmol/L (98-107) Carbon Dioxide Level 21 mmol/L (21-32) Anion Gap 8 (6-14) Blood Urea Nitrogen 26 mg/dL (8-26) Creatinine 1.3 mg/dL (0.7-1.3) Estimated GFR (Cockcroft-Gault) 56.3 Glucose Level 162 mg/dL (70-99) Calcium Level 8.2 mg/dL (8.5-10.1) Prothrombin Time 14.5 SEC (11.7-14.0) Prothromb Time International Ratio 1.2 (0.8-1.1) Test 03/21/20 08:51 03/21/20 11:50 03/21/20 12:26 03/21/20 17:06 Glucose (Fingerstick) 123 mg/dL (70-99) 166 mg/dL (70-99) 150 mg/dL (70-99) Hemoglobin 9.1 g/dL (13.0-17.5) Test 03/21/20 18:10 03/21/20 21:18 03/22/20 00:00 03/22/20 05:55 Hemoglobin 7.7 g/dL (13.0-17.5) 6.8 g/dL (13.0-17.5) 7.8 g/dL (13.0-17.5) Glucose (Fingerstick) 191 mg/dL (70-99) White Blood Count 7.5 x10^3/uL (4.0-11.0) 9.0 x10^3/uL (4.0-11.0) Red Blood Count 2.34 x10^6/uL (4.30-5.70) 2.66 x10^6/uL (4.30-5.70) Hematocrit 19.8 % (39.0-53.0) 22.7 % (39.0-53.0) Mean Corpuscular Volume 85 fL (79-100) 85 fL (79-100) Mean Corpuscular Hemoglobin 29 pg (25-35) 29 pg (25-35) Mean Corpuscular Hemoglobin Concent 34 g/dL (31-37) 34 g/dL (31-37) Red Cell Distribution Width 16.5 % (11.5-14.5) 15.9 % (11.5-14.5) Platelet Count 84 x10^3/uL (140-400) 86 x10^3/uL (140-400) Neutrophils (%) (Auto) 81 % (31-73) Lymphocytes (%) (Auto) 12 % (24-48) Monocytes (%) (Auto) 5 % (0-9) Eosinophils (%) (Auto) 2 % (0-3) Basophils (%) (Auto) 1 % (0-3) Neutrophils # (Auto) 7.3 x10^3/uL (1.8-7.7) Lymphocytes # (Auto) 1.1 x10^3/uL (1.0-4.8) Monocytes # (Auto) 0.4 x10^3/uL (0.0-1.1) Eosinophils # (Auto) 0.1 x10^3/uL (0.0-0.7) Basophils # (Auto) 0.1 x10^3/uL (0.0-0.2) Sodium Level 127 mmol/L (136-145) Potassium Level 3.9 mmol/L (3.5-5.1) Chloride Level 97 mmol/L (98-107) Carbon Dioxide Level 26 mmol/L (21-32) Anion Gap 4 (6-14) Blood Urea Nitrogen 18 mg/dL (8-26) Creatinine 1.1 mg/dL (0.7-1.3) Estimated GFR (Cockcroft-Gault) 68.3 Glucose Level 128 mg/dL (70-99) Calcium Level 7.3 mg/dL (8.5-10.1) Phosphorus Level 2.7 mg/dL (2.6-4.7) Magnesium Level 1.5 mg/dL (1.8-2.4) Test 03/22/20 08:07 Glucose (Fingerstick) 130 mg/dL (70-99) Laboratory Tests Test 03/21/20 12:26 03/21/20 17:06 03/21/20 18:10 03/21/20 21:18 Glucose (Fingerstick) 166 mg/dL (70-99) 150 mg/dL (70-99) 191 mg/dL (70-99) Hemoglobin 7.7 g/dL (13.0-17.5) Test 03/22/20 00:00 03/22/20 05:55 03/22/20 08:07 White Blood Count 7.5 x10^3/uL (4.0-11.0) 9.0 x10^3/uL (4.0-11.0) Red Blood Count 2.34 x10^6/uL (4.30-5.70) 2.66 x10^6/uL (4.30-5.70) Hemoglobin 6.8 g/dL (13.0-17.5) 7.8 g/dL (13.0-17.5) Hematocrit 19.8 % (39.0-53.0) 22.7 % (39.0-53.0) Mean Corpuscular Volume 85 fL (79-100) 85 fL (79-100) Mean Corpuscular Hemoglobin 29 pg (25-35) 29 pg (25-35) Mean Corpuscular Hemoglobin Concent 34 g/dL (31-37) 34 g/dL (31-37) Red Cell Distribution Width 16.5 % (11.5-14.5) 15.9 % (11.5-14.5) Platelet Count 84 x10^3/uL (140-400) 86 x10^3/uL (140-400) Neutrophils (%) (Auto) 81 % (31-73) Lymphocytes (%) (Auto) 12 % (24-48) Monocytes (%) (Auto) 5 % (0-9) Eosinophils (%) (Auto) 2 % (0-3) Basophils (%) (Auto) 1 % (0-3) Neutrophils # (Auto) 7.3 x10^3/uL (1.8-7.7) Lymphocytes # (Auto) 1.1 x10^3/uL (1.0-4.8) Monocytes # (Auto) 0.4 x10^3/uL (0.0-1.1) Eosinophils # (Auto) 0.1 x10^3/uL (0.0-0.7) Basophils # (Auto) 0.1 x10^3/uL (0.0-0.2) Sodium Level 127 mmol/L (136-145) Potassium Level 3.9 mmol/L (3.5-5.1) Chloride Level 97 mmol/L (98-107) Carbon Dioxide Level 26 mmol/L (21-32) Anion Gap 4 (6-14) Blood Urea Nitrogen 18 mg/dL (8-26) Creatinine 1.1 mg/dL (0.7-1.3) Estimated GFR (Cockcroft-Gault) 68.3 Glucose Level 128 mg/dL (70-99) Calcium Level 7.3 mg/dL (8.5-10.1) Phosphorus Level 2.7 mg/dL (2.6-4.7) Magnesium Level 1.5 mg/dL (1.8-2.4) Glucose (Fingerstick) 130 mg/dL (70-99) Microbiology 03/16/20 Blood Culture - Final, Complete NO GROWTH AFTER 5 DAYS No results on fluid from liver aspirate. Vitals/I & O Vital Sign - Last 24 Hours 03/21/20 03/21/20 03/21/20 03/21/20 12:27 13:00 13:31 14:00 Pulse 118 118 Resp 31 32 B/P (MAP) 154/91 (112) 136/76 (96) Pulse Ox 97 97 98 98 O2 Delivery Room Air Room Air Room Air Room Air 03/21/20 03/21/20 03/21/20 03/21/20 15:00 16:00 16:00 17:00 Temp 101.3 101.3 Pulse 113 108 112 Resp 24 B/P (MAP) 119/75 (90) 129/76 (93) 126/71 (89) Pulse Ox 99 97 95 O2 Delivery Room Air Room Air Room Air Room Air 03/21/20 03/21/20 03/21/20 03/21/20 17:04 18:00 19:00 19:38 Pulse 110 112 Resp 30 B/P (MAP) 131/75 (93) 110/65 (80) Pulse Ox 99 99 96 96 O2 Delivery Room Air Room Air Room Air Room Air 03/21/20 03/21/20 03/21/20 7/27/20 20:00 20:00 21:00 21:00 Temp 97.3 97.3 Pulse 108 106 106 Resp 22 B/P (MAP) 110/65 (80) 94/59 94/59 (71) Pulse Ox 95 95 O2 Delivery Room Air Room Air Room Air 03/21/20 03/21/20 03/21/20 03/21/20 22:00 23:00 23:59 23:59 Temp 99.0 99.0 Pulse 106 104 109 Resp 30 24 B/P (MAP) 109/63 (78) 97/60 (72) 106/73 (84) Pulse Ox 95 94 94 O2 Delivery Room Air Room Air Room Air Room Air 03/22/20 03/22/20 03/22/20 03/22/20 00:07 01:00 01:12 01:13 Pulse 103 Resp 24 B/P (MAP) 112/64 (80) Pulse Ox 94 93 94 94 O2 Delivery Room Air Room Air Room Air Room Air O2 Flow Rate 2.0 2.0 2.0 03/22/20 03/22/20 03/22/20 03/22/20 02:00 02:15 02:50 03:00 Temp 98.5 98.5 Pulse 103 96 95 93 Resp 25 19 25 B/P (MAP) 109/56 (73) 103/63 (76) 109/62 (78) 104/64 (77) Pulse Ox 93 95 97 94 O2 Delivery Room Air Room Air Room Air Room Air 03/22/20 03/22/20 03/22/20 03/22/20 04:00 04:00 04:19 04:19 Temp 97.8 97.8 Pulse 104 Resp 24 B/P (MAP) 118/76 (90) Pulse Ox 96 94 94 O2 Delivery Room Air Room Air Room Air Room Air O2 Flow Rate 2.0 2.0 03/22/20 03/22/20 03/22/20 03/22/20 05:00 05:24 06:00 07:44 Pulse 97 98 Resp 24 18 B/P (MAP) 118/73 (88) 126/69 (88) Pulse Ox 96 96 96 96 O2 Delivery Room Air Room Air Room Air Room Air O2 Flow Rate 2.0 03/22/20 03/22/20 03/22/2003/22/20 08:00 08:30 08:31 08:32 Temp 99.0 99.0 Pulse 106 106 106 Resp 22 22 B/P (MAP) 124/70 (88) 111/70 111/70 Pulse Ox 98 O2 Delivery Room Air 03/22/20 03/22/20 03/22/20 10:00 10:40 11:37 Pulse 88 B/P (MAP) 106/60 (75) Pulse Ox 96 96 O2 Delivery Room Air Room Air Room Air Intake and Output 03/21/20 03/21/20 03/22/20 15:00 23:00 07:00 Intake Total 731 ml 100 ml Output Total 1305 ml 1045 ml 1365 ml Balance -574 ml -1045 ml -1265 ml Images Bleeding scan negative. Problem List Problems Medical Problems: (1) Acute kidney injury Status: Acute (2) Encephalopathy Status: Acute (3) Hypoglycemia Status: Acute (4) Hyponatremia Status: Acute (5) Seizure Status: Acute Assessment Rectal bleeding; seems hopefully to have ceased. Ischemic colitis might give appearance on Saturday's CT. Liver abcess, S/P aspiration/drain; currently serosanguinous output. No fluid results. Source of E.coli? Bile leak after jonelle; more than simple leak? No records yet from though stent seems patient on imaging and per labs. Thrombocytopenia, stable. Maybe in part consumption, but never in full-blown DIC. Plan of Care Note Diet OK with me. Tobin out? Await pending cultures, hopefully information from . Justicifation of Admission Dx: Justifications for Admission: Justification of Admission Dx: Yes JAGDISH SEYMOUR MD Mar 22, 2020 12:13
--- NOTE | 2020-03-22 13:13 | PDOC ---
SURGICAL PROGRESS NOTE Subjective Patient doing well only complaint is he like his Hernandez out he is currently sitting on the toilet having a bowel movement Vital Signs Vital Signs Date Time Temp Pulse Resp B/P (MAP) Pulse Ox O2 Delivery O2 Flow Rate FiO2 03/22/20 13:11 22 98 03/22/20 11:37 Room Air 03/22/20 10:00 88 106/60 (75) 03/22/20 08:00 99.0 99.0 03/22/20 05:24 2.0 I&O Intake and Output 03/22/20 07:00 Intake Total 831 ml Output Total 3715 ml Balance -2884 ml Intake Oral 240 ml IV Total 491 ml Blood Product IV Normal Saline Flush 100 ml Output Urine Total 3385 ml Drainage Total 330 ml # Bowel Movements 3 PATIENT HAS A HERNANDEZ: Yes General: Alert, Oriented X3, Cooperative, No acute distress Abdomen: Normal bowel sounds, Soft, No tenderness Labs Laboratory Tests Test 03/20/20 17:31 03/20/20 17:35 03/20/20 20:54 03/20/20 23:51 Glucose (Fingerstick) 166 mg/dL (70-99) 157 mg/dL (70-99) 150 mg/dL (70-99) Hemoglobin 8.1 g/dL (13.0-17.5) Test 03/21/20 00:01 03/21/20 07:28 03/21/20 08:45 03/21/20 08:51 Hemoglobin 7.6 g/dL (13.0-17.5) 9.4 g/dL (13.0-17.5) White Blood Count 15.6 x10^3/uL (4.0-11.0) Red Blood Count 3.26 x10^6/uL (4.30-5.70) Hematocrit 28.0 % (39.0-53.0) Mean Corpuscular Volume 86 fL (79-100) Mean Corpuscular Hemoglobin 29 pg (25-35) Mean Corpuscular Hemoglobin Concent 34 g/dL (31-37) Red Cell Distribution Width 17.0 % (11.5-14.5) Platelet Count 122 x10^3/uL (140-400) Neutrophils (%) (Auto) 87 % (31-73) Lymphocytes (%) (Auto) 10 % (24-48) Monocytes (%) (Auto) 3 % (0-9) Eosinophils (%) (Auto) 0 % (0-3) Basophils (%) (Auto) 0 % (0-3) Neutrophils # (Auto) 13.5 x10^3/uL (1.8-7.7) Lymphocytes # (Auto) 1.6 x10^3/uL (1.0-4.8) Monocytes # (Auto) 0.4 x10^3/uL (0.0-1.1) Eosinophils # (Auto) 0.0 x10^3/uL (0.0-0.7) Basophils # (Auto) 0.0 x10^3/uL (0.0-0.2) Sodium Level 125 mmol/L (136-145) Potassium Level 4.8 mmol/L (3.5-5.1) Chloride Level 96 mmol/L (98-107) Carbon Dioxide Level 21 mmol/L (21-32) Anion Gap 8 (6-14) Blood Urea Nitrogen 26 mg/dL (8-26) Creatinine 1.3 mg/dL (0.7-1.3) Estimated GFR (Cockcroft-Gault) 56.3 Glucose Level 162 mg/dL (70-99) Calcium Level 8.2 mg/dL (8.5-10.1) Prothrombin Time 14.5 SEC (11.7-14.0) Prothromb Time International Ratio 1.2 (0.8-1.1) Glucose (Fingerstick) 123 mg/dL (70-99) Test 03/21/20 11:50 03/21/20 12:26 03/21/20 17:06 03/21/20 18:10 Hemoglobin 9.1 g/dL (13.0-17.5) 7.7 g/dL (13.0-17.5) Glucose (Fingerstick) 166 mg/dL (70-99) 150 mg/dL (70-99) Test 03/21/20 21:18 03/22/20 00:00 03/22/20 05:55 03/22/20 08:07 Glucose (Fingerstick) 191 mg/dL (70-99) 130 mg/dL (70-99) White Blood Count 7.5 x10^3/uL (4.0-11.0) 9.0 x10^3/uL (4.0-11.0) Red Blood Count 2.34 x10^6/uL (4.30-5.70) 2.66 x10^6/uL (4.30-5.70) Hemoglobin 6.8 g/dL (13.0-17.5) 7.8 g/dL (13.0-17.5) Hematocrit 19.8 % (39.0-53.0) 22.7 % (39.0-53.0) Mean Corpuscular Volume 85 fL (79-100) 85 fL (79-100) Mean Corpuscular Hemoglobin 29 pg (25-35) 29 pg (25-35) Mean Corpuscular Hemoglobin Concent 34 g/dL (31-37) 34 g/dL (31-37) Red Cell Distribution Width 16.5 % (11.5-14.5) 15.9 % (11.5-14.5) Platelet Count 84 x10^3/uL (140-400) 86 x10^3/uL (140-400) Neutrophils (%) (Auto) 81 % (31-73) Lymphocytes (%) (Auto) 12 % (24-48) Monocytes (%) (Auto) 5 % (0-9) Eosinophils (%) (Auto) 2 % (0-3) Basophils (%) (Auto) 1 % (0-3) Neutrophils # (Auto) 7.3 x10^3/uL (1.8-7.7) Lymphocytes # (Auto) 1.1 x10^3/uL (1.0-4.8) Monocytes # (Auto) 0.4 x10^3/uL (0.0-1.1) Eosinophils # (Auto) 0.1 x10^3/uL (0.0-0.7) Basophils # (Auto) 0.1 x10^3/uL (0.0-0.2) Sodium Level 127 mmol/L (136-145) Potassium Level 3.9 mmol/L (3.5-5.1) Chloride Level 97 mmol/L (98-107) Carbon Dioxide Level 26 mmol/L (21-32) Anion Gap 4 (6-14) Blood Urea Nitrogen 18 mg/dL (8-26) Creatinine 1.1 mg/dL (0.7-1.3) Estimated GFR (Cockcroft-Gault) 68.3 Glucose Level 128 mg/dL (70-99) Calcium Level 7.3 mg/dL (8.5-10.1) Phosphorus Level 2.7 mg/dL (2.6-4.7) Magnesium Level 1.5 mg/dL (1.8-2.4) Laboratory Tests Test 03/21/20 17:06 03/21/20 18:10 03/21/20 21:18 03/22/20 00:00 Glucose (Fingerstick) 150 mg/dL (70-99) 191 mg/dL (70-99) Hemoglobin 7.7 g/dL (13.0-17.5) 6.8 g/dL (13.0-17.5) White Blood Count 7.5 x10^3/uL (4.0-11.0) Red Blood Count 2.34 x10^6/uL (4.30-5.70) Hematocrit 19.8 % (39.0-53.0) Mean Corpuscular Volume 85 fL (79-100) Mean Corpuscular Hemoglobin 29 pg (25-35) Mean Corpuscular Hemoglobin Concent 34 g/dL (31-37) Red Cell Distribution Width 16.5 % (11.5-14.5) Platelet Count 84 x10^3/uL (140-400) Test 03/22/20 05:55 03/22/20 08:07 White Blood Count 9.0 x10^3/uL (4.0-11.0) Red Blood Count 2.66 x10^6/uL (4.30-5.70) Hemoglobin 7.8 g/dL (13.0-17.5) Hematocrit 22.7 % (39.0-53.0) Mean Corpuscular Volume 85 fL (79-100) Mean Corpuscular Hemoglobin 29 pg (25-35) Mean Corpuscular Hemoglobin Concent 34 g/dL (31-37) Red Cell Distribution Width 15.9 % (11.5-14.5) Platelet Count 86 x10^3/uL (140-400) Neutrophils (%) (Auto) 81 % (31-73) Lymphocytes (%) (Auto) 12 % (24-48) Monocytes (%) (Auto) 5 % (0-9) Eosinophils (%) (Auto) 2 % (0-3) Basophils (%) (Auto) 1 % (0-3) Neutrophils # (Auto) 7.3 x10^3/uL (1.8-7.7) Lymphocytes # (Auto) 1.1 x10^3/uL (1.0-4.8) Monocytes # (Auto) 0.4 x10^3/uL (0.0-1.1) Eosinophils # (Auto) 0.1 x10^3/uL (0.0-0.7) Basophils # (Auto) 0.1 x10^3/uL (0.0-0.2) Sodium Level 127 mmol/L (136-145) Potassium Level 3.9 mmol/L (3.5-5.1) Chloride Level 97 mmol/L (98-107) Carbon Dioxide Level 26 mmol/L (21-32) Anion Gap 4 (6-14) Blood Urea Nitrogen 18 mg/dL (8-26) Creatinine 1.1 mg/dL (0.7-1.3) Estimated GFR (Cockcroft-Gault) 68.3 Glucose Level 128 mg/dL (70-99) Calcium Level 7.3 mg/dL (8.5-10.1) Phosphorus Level 2.7 mg/dL (2.6-4.7) Magnesium Level 1.5 mg/dL (1.8-2.4) Glucose (Fingerstick) 130 mg/dL (70-99) Problem List Problems Medical Problems: (1) Acute kidney injury Status: Acute (2) Encephalopathy Status: Acute (3) Hypoglycemia Status: Acute (4) Hyponatremia Status: Acute (5) Seizure Status: Acute Assessment/Plan Status post percutaneous drainage of liver abscess per IR No new surgical recommendations Justicifation of Admission Dx: Justifications for Admission: Justification of Admission Dx: Yes DAKSHA SUMNER MD Mar 22, 2020 13:13
[2020-03-22] MEDS: LACTOBACILLUS RHAMNOSUS GG 1 CAPSULE. PO SCH ×2 (13:32→21:00)
--- NOTE | 2020-03-22 13:47 | NUR ---
SS following up with discharge planning. SS reviewed pt chart and discussed with pt RN. Pt is currently on room air. Pt on IV Rocephin. Pt had blood transfusion on 03/21/2020. COVID19 negative. Pt has drain placed. LTACH recommended. Per RN, pt has some confusion. SS contacted pt's spouse and discussed discharge planning and LTACH via phone. Pt's spouse agreeable to LTACH and requested referral be phoned and faxed to [facility], ; fax [phone]. SS phoned and faxed referral to [facility]. SS will await acceptance decision and will proceed accordingly.
[2020-03-22] MEDS ORDERED: NALOXONE 0.4 MG/ML VIAL. IV PRN (15:30)
--- NOTE | 2020-03-22 17:00 | NUR ---
CRAB FISHERMAN set up dose 0.2mcg with 10 minute lockout 4hrmax 4mcg Addendum: 03/22/20 at 1749 by GAVIN WONG RN Amended: Links added.
[2020-03-22] MEDS: HYDROmorphone 12mg/30ml PCA 30 ML IV PRN (17:35)
--- NOTE | 2020-03-22 17:36 | NUR ---
Normal saline at 25mL for AIRBR[employer]IST [employer]CH[employer] carrier and Dilauded [employer] medication orders not scanned in EMAR, sports book writer did not administer them but previous ICU nurse did administer. Received patient transfer from ICU at approximately 1730, will continue to monitor patient, alarm set.
[2020-03-22] MEDS: ATORVASTATIN CALCIUM 20 MG TABLET PO SCH (21:00)
[2020-03-22] MEDS: INSULIN GLARGINE SYRINGE. SQ SCH (21:34)
[2020-03-23] VITALS (11 sets, daily range): BP systolic 109–160; BP diastolic 61–96
[2020-03-23 06:33] LABS: BASO % 0 % (0-3); CALCIUM 7.1 mg/dL (8.5-10.1); CREATININE 1.1 mg/dL (0.7-1.3); EOS # 0.1 x10^3/uL (0.0-0.7); EOS % 1 % (0-3); GFR 68.3; LYMPH # 0.6 x10^3/uL (1.0-4.8); LYMPH % 6 % (24-48); MAGNESIUM 1.6 mg/dL (1.8-2.4); MEAN CORPUSCULAR HEMOGLOBIN 29 pg (25-35); MEAN CORPUSCULAR HGB CONC 34 g/dL (31-37); MEAN CORPUSCULAR VOLUME 84 fL (79-100); MONO # 0.6 x10^3/uL (0.0-1.1); MONO % 5 % (0-9); NEUT # 9.7 x10^3/uL (1.8-7.7); NEUT % 88 % (31-73); PLATELET COUNT 128 x10^3/uL (140-400); POTASSIUM 4.1 mmol/L (3.5-5.1); RED BLOOD COUNT 2.34 x10^6/uL (4.30-5.70); RED CELL DISTRIBUTION WIDTH 15.6 % (11.5-14.5)
[2020-03-23 06:44] LABS: HEMATOCRIT 19.7 % (39.0-53.0); HEMOGLOBIN 6.8 g/dL (13.0-17.5)
--- NOTE | 2020-03-23 07:15 | NUR ---
Approx. 0645 pt was found on the floor. he stated he leaned back and the commode had fallen over. Pt. stated he hit his head, no bleeding noted upon assessment. Dr. Carmen notified per CYNDIE Sandhu.
[2020-03-23] MEDS: BUDESONIDE 0.5 MG/2 ML NEBU. NEB SCH ×2 (07:56→20:29)
[2020-03-23] MEDS: IPRATRPIUM/ALBUTEROL 0.5/2.5MG 3 ML NEBU. NEB SCH ×4 (07:56→20:29)
[2020-03-23] MEDS: LACTOBACILLUS RHAMNOSUS GG 1 CAPSULE. PO SCH ×2 (08:22→21:39)
[2020-03-23] MEDS: LINAGLIPTIN 5 MG TABLET PO SCH (08:22)
[2020-03-23] MEDS: MONTELUKAST SODIUM 10 MG TABLET. PO SCH (08:22)
[2020-03-23] MEDS: METOPROLOL TART IMMED RELEASE 25 MG TABLET. PO SCH ×2 (08:23→21:40)
[2020-03-23] MEDS: DULoxetine HCL 30 MG CAPSULE.DR PO SCH ×2 (08:23→21:39)
[2020-03-23] MEDS: PANTOPRAZOLE IV PUSH 40 MG VIAL. IVP SCH ×2 (08:23→17:00)
[2020-03-23] MEDS: amLODIPine BESYLATE 10 MG TABLET PO SCH (08:27)
[2020-03-23] MEDS: INSULIN LISPRO 300 UNITS/3 ML VIAL. SQ SCH ×4 (08:36→21:00)
[2020-03-23] MEDS ORDERED: METO25TA4 PO (09:00)
[2020-03-23] MEDS ORDERED: INSU100V8 SQ (09:00)
--- NOTE | 2020-03-23 09:01 | PDOC ---
Infectious Disease Note Subjective Subjective Has some worsening back pain. Continues to have bloody stool Has some abdominal discomfort left lower quadrant with drain but ok No fevers ROS ROS o/w neg Vital Sign Vital Signs Vital Signs Date Time Temp Pulse Resp B/P (MAP) Pulse Ox O2 Delivery O2 Flow Rate FiO2 03/23/20 08:27 109 120/75 03/23/20 07:58 95 Room Air 03/23/20 07:00 98.4 18 98.4 Physical Exam PHYSICAL EXAM GENERAL: Alert, awake, in bed , coop but somewhat confused. HEENT: Normocephalic, atraumatic, anicteric. Oral mucosa dry. No thrush. NECK: Supple. Right IJ present LUNGS: Decreased breath sounds at bases. No wheezing. No accessory muscle use. HEART: S1, S2 regular. No murmurs. ABDOMEN: Mildly distended. Bowel sounds present, nontender, no rebound, no guarding. JULIA with serous fluid. Pump clean in LLQ EXTREMITIES: No edema, no cyanosis. NEUROLOGIC: Alert, awake, somewhat confused. PSYCHIATRIC: Cooperative. SKIN: no rash Labs Lab Laboratory Tests Test 03/22/20 13:16 03/22/20 16:59 03/22/20 20:21 03/23/20 06:10 Glucose (Fingerstick) 166 mg/dL (70-99) 203 mg/dL (70-99) 162 mg/dL (70-99) White Blood Count 11.0 x10^3/uL (4.0-11.0) Red Blood Count 2.34 x10^6/uL (4.30-5.70) Hemoglobin 6.8 g/dL (13.0-17.5) Hematocrit 19.7 % (39.0-53.0) Mean Corpuscular Volume 84 fL (79-100) Mean Corpuscular Hemoglobin 29 pg (25-35) Mean Corpuscular Hemoglobin Concent 34 g/dL (31-37) Red Cell Distribution Width 15.6 % (11.5-14.5) Platelet Count 128 x10^3/uL (140-400) Neutrophils (%) (Auto) 88 % (31-73) Lymphocytes (%) (Auto) 6 % (24-48) Monocytes (%) (Auto) 5 % (0-9) Eosinophils (%) (Auto) 1 % (0-3) Basophils (%) (Auto) 0 % (0-3) Neutrophils # (Auto) 9.7 x10^3/uL (1.8-7.7) Lymphocytes # (Auto) 0.6 x10^3/uL (1.0-4.8) Monocytes # (Auto) 0.6 x10^3/uL (0.0-1.1) Eosinophils # (Auto) 0.1 x10^3/uL (0.0-0.7) Basophils # (Auto) 0.0 x10^3/uL (0.0-0.2) Sodium Level 124 mmol/L (136-145) Potassium Level 4.1 mmol/L (3.5-5.1) Chloride Level 93 mmol/L (98-107) Carbon Dioxide Level 26 mmol/L (21-32) Anion Gap 5 (6-14) Blood Urea Nitrogen 14 mg/dL (8-26) Creatinine 1.1 mg/dL (0.7-1.3) Estimated GFR (Cockcroft-Gault) 68.3 Glucose Level 177 mg/dL (70-99) Calcium Level 7.1 mg/dL (8.5-10.1) Magnesium Level 1.6 mg/dL (1.8-2.4) Test 03/23/20 08:19 Glucose (Fingerstick) 156 mg/dL (70-99) Micro Microbiology 03/16/20 Blood Culture - Final, Complete NO GROWTH AFTER 5 DAYS Objective Assessment 1. Severe Sepsis present on admission from gram-negative bacteremia.03/15 03/16 - neg 2. E Coli bacteremia ? intrabdominal source s/p abscess drain 03/21 - Ecoli 3. Leukocytosis and lactic acidosis.Solumedrol - 03/18/PRBCs mild increase 4. Anemia, status post PRBC.03/21- bleed scan neg 03/21 5. Hyponatremia. 6. Encephalopathy - resolving, likely metabolic, CT head negative 7. History of renal cancer.S/P Nephrectomy 8. Abnormal LFTs ,Liver mass 9. History of ALLERGIES TO CLINDAMYCIN AND LEVAQUIN. 10. Recent placement of metallic stent 11. Thrombocytopenia - better? Sepsis vs other 12 COVID-19 neg 03/[address] Thoracic/Lumbar with pain. Cannot do MRI with pump and no contrast with recent COLBY and chronic CKD Ceftriaxone 03/20 F/u IR cults Follow up repeat blood cultures. Negative so far F/U AM labs. Anemia per primary Electrolytes per primary Maintain aspiration precaution. Local wound care as directed Discussed with nursing staff DC meropenem 03/18 - 03/20 previous Zosyn 03/17- 03/18. Dose Rocephin 03/16 D/w Dr. Poe and GRIS Hernandez MD Mar 23, 2020 09:01
[2020-03-23 09:05] LABS: BASO % 0 % (0-3); EOS # 0.1 x10^3/uL (0.0-0.7); EOS % 1 % (0-3); HEMATOCRIT 21.5 % (39.0-53.0); HEMOGLOBIN 7.4 g/dL (13.0-17.5); LYMPH # 0.9 x10^3/uL (1.0-4.8); LYMPH % 7 % (24-48); MEAN CORPUSCULAR HEMOGLOBIN 29 pg (25-35); MEAN CORPUSCULAR HGB CONC 34 g/dL (31-37); MEAN CORPUSCULAR VOLUME 84 fL (79-100); MONO # 0.7 x10^3/uL (0.0-1.1); MONO % 6 % (0-9); NEUT # 10.7 x10^3/uL (1.8-7.7); NEUT % 86 % (31-73); PLATELET COUNT 167 x10^3/uL (140-400); RED BLOOD COUNT 2.56 x10^6/uL (4.30-5.70); RED CELL DISTRIBUTION WIDTH 15.9 % (11.5-14.5); WHITE BLOOD COUNT 12.5 x10^3/uL (4.0-11.0)
--- NOTE | 2020-03-23 09:08 | PDOC ---
PROGRESS NOTES Chief Complaint Chief Complaint GI BLEED, ongoing anemia, symptomatic, TRANSFUSED hemoglobin back down to 6.8 Hyponatremia still low Hepatic mass s/p IR biliary drainpending cultures History of renal cell carcinoma Altered mental status Recent placement of percutaneous biliary drain Severe sepsis Gram negative bacteremiacontinue ceftriaxone BLOOD CULTURE Final GRAM NEGATIVE RODS SEEN IN 1 OF 2 TOTAL BOTTLES, REPRESENTING 2 SETS COLLECTED (EACH SET ONLY HAS ONE BOTTLE). acute METABOLIC ENCEPHALOPATHY - improved COPD - will cont home nebs Large irregular hepatic mass. This is likely a necrotic metastasis. An abscess is not excluded. 6 is unchanged. Normocytic anemia with GI bleed (melena/hematochezia): Hgb 6.8 and just received 1U transfusion PUD: prepyloric ulcers via EGD 03/10/2020 Biliary stent and mild pneumobilia seen previously. Altered mental status CKD STAGE 3 with Cr 1.6-2.0 // baseline Recent placement of percutaneous biliary drain [facility] The left colon is collapsed. A stricture at the splenic flexure is possible. Apparently issues w/ confusion since cholecystectomy at on 12/25/19. Per nurse d/w , "drain" placed ~3 weeks after surgery, then "stent" placed ~1 week ago. ?bile leak Reported h/o hyponatremia per labs at . Liver biopsy 2009 from LEFT lobe of liver during w/u of renal cancer; cavernous hemangioma. 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 She notes he has had a progressive decline over the last month or so. Patient is encephalopathic and unable to answer questions. Patient given glucagon prior to arrival and blood sugar improved from 55-83. notes issues w/ confusion since cholecystectomy at on 12/25/19. notes an IR drain was placed after a readmission for worsening and remained in place for 3 weeks and was removed at the end of January, then he returned for common bile duct stent placement last week. She notes that she was told that he had a "small spot" on his liver at [facility] and that his sodium was "better" at 129 last week. She also notes he has lost 46# in the past 2 months and she is not aware of any diagnosis for him. Patient is not even speaking, he is moaning and writhing in bed. Has been tested 3x for covid 19 and negative with last check over a week ago. CXR with pulmonary vasculare congestion and CT head negative for acute process. Labs significant for WBC 17.2, Hb 8.2, platelets 244, INR 1.3, Na 123, K 4.7, BUN 49, Cr 3.4, Albumin 1.7, Glucose 97, Mg 1.7, AST 84, ALT 66, Alk phos 228, Bili 1.2. BNP 02302 Admitted to ICU for further care. 03/23, need try to transfer to [facility] soon, hgb drop again today, 1 u PRBC ordered, GI and surg following discussed abx with ID, following he is weak, not eating much, DNR reviewed, Vitals Vitals Vital Signs Date Time Temp Pulse Resp B/P (MAP) Pulse Ox O2 Delivery O2 Flow Rate FiO2 03/23/20 08:27 109 120/75 03/23/20 07:58 95 Room Air 03/23/20 07:00 98.4 18 98.4 Physical Exam Physical Exam GENERAL: Alert, awake, in bed , coop but somewhat confused. HEENT: Normocephalic, atraumatic, anicteric. Oral mucosa dry. No thrush. NECK: Supple. Right IJ present LUNGS: Decreased breath sounds at bases. No wheezing. No accessory muscle use. HEART: S1, S2 regular. No murmurs. ABDOMEN: Mildly distended. Bowel sounds present, nontender, no rebound, no guarding. JULIA with serous fluid EXTREMITIES: No edema, no cyanosis. NEUROLOGIC: Alert, awake, somewhat confused. PSYCHIATRIC: Cooperative. SKIN: no rash General: Alert, Oriented X3, Cooperative, No acute distress Heart: Regular rate Lungs: Clear Abdomen: Normal bowel sounds, Soft, No tenderness Extremities: No edema Skin: No significant lesion Labs LABS Laboratory Tests Test 03/22/20 13:16 03/22/20 16:59 03/22/20 20:21 03/23/20 06:10 Glucose (Fingerstick) 166 mg/dL (70-99) 203 mg/dL (70-99) 162 mg/dL (70-99) White Blood Count 11.0 x10^3/uL (4.0-11.0) Red Blood Count 2.34 x10^6/uL (4.30-5.70) Hemoglobin 6.8 g/dL (13.0-17.5) Hematocrit 19.7 % (39.0-53.0) Mean Corpuscular Volume 84 fL (79-100) Mean Corpuscular Hemoglobin 29 pg (25-35) Mean Corpuscular Hemoglobin Concent 34 g/dL (31-37) Red Cell Distribution Width 15.6 % (11.5-14.5) Platelet Count 128 x10^3/uL (140-400) Neutrophils (%) (Auto) 88 % (31-73) Lymphocytes (%) (Auto) 6 % (24-48) Monocytes (%) (Auto) 5 % (0-9) Eosinophils (%) (Auto) 1 % (0-3) Basophils (%) (Auto) 0 % (0-3) Neutrophils # (Auto) 9.7 x10^3/uL (1.8-7.7) Lymphocytes # (Auto) 0.6 x10^3/uL (1.0-4.8) Monocytes # (Auto) 0.6 x10^3/uL (0.0-1.1) Eosinophils # (Auto) 0.1 x10^3/uL (0.0-0.7) Basophils # (Auto) 0.0 x10^3/uL (0.0-0.2) Sodium Level 124 mmol/L (136-145) Potassium Level 4.1 mmol/L (3.5-5.1) Chloride Level 93 mmol/L (98-107) Carbon Dioxide Level 26 mmol/L (21-32) Anion Gap 5 (6-14) Blood Urea Nitrogen 14 mg/dL (8-26) Creatinine 1.1 mg/dL (0.7-1.3) Estimated GFR (Cockcroft-Gault) 68.3 Glucose Level 177 mg/dL (70-99) Calcium Level 7.1 mg/dL (8.5-10.1) Magnesium Level 1.6 mg/dL (1.8-2.4) Test 03/23/20 08:19 03/23/20 08:30 Glucose (Fingerstick) 156 mg/dL (70-99) White Blood Count 12.5 x10^3/uL (4.0-11.0) Red Blood Count 2.56 x10^6/uL (4.30-5.70) Hemoglobin 7.4 g/dL (13.0-17.5) Hematocrit 21.5 % (39.0-53.0) Mean Corpuscular Volume 84 fL (79-100) Mean Corpuscular Hemoglobin 29 pg (25-35) Mean Corpuscular Hemoglobin Concent 34 g/dL (31-37) Red Cell Distribution Width 15.9 % (11.5-14.5) Platelet Count 167 x10^3/uL (140-400) Neutrophils (%) (Auto) 86 % (31-73) Lymphocytes (%) (Auto) 7 % (24-48) Monocytes (%) (Auto) 6 % (0-9) Eosinophils (%) (Auto) 1 % (0-3) Basophils (%) (Auto) 0 % (0-3) Neutrophils # (Auto) 10.7 x10^3/uL (1.8-7.7) Lymphocytes # (Auto) 0.9 x10^3/uL (1.0-4.8) Monocytes # (Auto) 0.7 x10^3/uL (0.0-1.1) Eosinophils # (Auto) 0.1 x10^3/uL (0.0-0.7) Basophils # (Auto) 0.0 x10^3/uL (0.0-0.2) Assessment and Plan Assessmemt and Plan Problems Medical Problems: (1) Acute kidney injury Status: Acute (2) Encephalopathy Status: Acute (3) Hypoglycemia Status: Acute (4) Hyponatremia Status: Acute (5) Seizure Status: Acute Comment Review of Relevant I have reviewed the following items clarisse (where applicable) has been applied. Labs Laboratory Tests Test 03/21/20 11:50 03/21/20 12:26 03/21/20 17:06 03/21/20 18:10 Hemoglobin 9.1 g/dL (13.0-17.5) 7.7 g/dL (13.0-17.5) Glucose (Fingerstick) 166 mg/dL (70-99) 150 mg/dL (70-99) Test 03/21/20 21:18 03/22/20 00:00 03/22/20 05:55 03/22/20 08:07 Glucose (Fingerstick) 191 mg/dL (70-99) 130 mg/dL (70-99) White Blood Count 7.5 x10^3/uL (4.0-11.0) 9.0 x10^3/uL (4.0-11.0) Red Blood Count 2.34 x10^6/uL (4.30-5.70) 2.66 x10^6/uL (4.30-5.70) Hemoglobin 6.8 g/dL (13.0-17.5) 7.8 g/dL (13.0-17.5) Hematocrit 19.8 % (39.0-53.0) 22.7 % (39.0-53.0) Mean Corpuscular Volume 85 fL (79-100) 85 fL (79-100) Mean Corpuscular Hemoglobin 29 pg (25-35) 29 pg (25-35) Mean Corpuscular Hemoglobin Concent 34 g/dL (31-37) 34 g/dL (31-37) Red Cell Distribution Width 16.5 % (11.5-14.5) 15.9 % (11.5-14.5) Platelet Count 84 x10^3/uL (140-400) 86 x10^3/uL (140-400) Neutrophils (%) (Auto) 81 % (31-73) Lymphocytes (%) (Auto) 12 % (24-48) Monocytes (%) (Auto) 5 % (0-9) Eosinophils (%) (Auto) 2 % (0-3) Basophils (%) (Auto) 1 % (0-3) Neutrophils # (Auto) 7.3 x10^3/uL (1.8-7.7) Lymphocytes # (Auto) 1.1 x10^3/uL (1.0-4.8) Monocytes # (Auto) 0.4 x10^3/uL (0.0-1.1) Eosinophils # (Auto) 0.1 x10^3/uL (0.0-0.7) Basophils # (Auto) 0.1 x10^3/uL (0.0-0.2) Sodium Level 127 mmol/L (136-145) Potassium Level 3.9 mmol/L (3.5-5.1) Chloride Level 97 mmol/L (98-107) Carbon Dioxide Level 26 mmol/L (21-32) Anion Gap 4 (6-14) Blood Urea Nitrogen 18 mg/dL (8-26) Creatinine 1.1 mg/dL (0.7-1.3) Estimated GFR (Cockcroft-Gault) 68.3 Glucose Level 128 mg/dL (70-99) Calcium Level 7.3 mg/dL (8.5-10.1) Phosphorus Level 2.7 mg/dL (2.6-4.7) Magnesium Level 1.5 mg/dL (1.8-2.4) Test 03/22/20 13:16 03/22/20 16:59 03/22/20 20:21 03/23/20 06:10 Glucose (Fingerstick) 166 mg/dL (70-99) 203 mg/dL (70-99) 162 mg/dL (70-99) White Blood Count 11.0 x10^3/uL (4.0-11.0) Red Blood Count 2.34 x10^6/uL (4.30-5.70) Hemoglobin 6.8 g/dL (13.0-17.5) Hematocrit 19.7 % (39.0-53.0) Mean Corpuscular Volume 84 fL (79-100) Mean Corpuscular Hemoglobin 29 pg (25-35) Mean Corpuscular Hemoglobin Concent 34 g/dL (31-37) Red Cell Distribution Width 15.6 % (11.5-14.5) Platelet Count 128 x10^3/uL (140-400) Neutrophils (%) (Auto) 88 % (31-73) Lymphocytes (%) (Auto) 6 % (24-48) Monocytes (%) (Auto) 5 % (0-9) Eosinophils (%) (Auto) 1 % (0-3) Basophils (%) (Auto) 0 % (0-3) Neutrophils # (Auto) 9.7 x10^3/uL (1.8-7.7) Lymphocytes # (Auto) 0.6 x10^3/uL (1.0-4.8) Monocytes # (Auto) 0.6 x10^3/uL (0.0-1.1) Eosinophils # (Auto) 0.1 x10^3/uL (0.0-0.7) Basophils # (Auto) 0.0 x10^3/uL (0.0-0.2) Sodium Level 124 mmol/L (136-145) Potassium Level 4.1 mmol/L (3.5-5.1) Chloride Level 93 mmol/L (98-107) Carbon Dioxide Level 26 mmol/L (21-32) Anion Gap 5 (6-14) Blood Urea Nitrogen 14 mg/dL (8-26) Creatinine 1.1 mg/dL (0.7-1.3) Estimated GFR (Cockcroft-Gault) 68.3 Glucose Level 177 mg/dL (70-99) Calcium Level 7.1 mg/dL (8.5-10.1) Magnesium Level 1.6 mg/dL (1.8-2.4) Test 03/23/20 08:19 03/23/20 08:30 Glucose (Fingerstick) 156 mg/dL (70-99) White Blood Count 12.5 x10^3/uL (4.0-11.0) Red Blood Count 2.56 x10^6/uL (4.30-5.70) Hemoglobin 7.4 g/dL (13.0-17.5) Hematocrit 21.5 % (39.0-53.0) Mean Corpuscular Volume 84 fL (79-100) Mean Corpuscular Hemoglobin 29 pg (25-35) Mean Corpuscular Hemoglobin Concent 34 g/dL (31-37) Red Cell Distribution Width 15.9 % (11.5-14.5) Platelet Count 167 x10^3/uL (140-400) Neutrophils (%) (Auto) 86 % (31-73) Lymphocytes (%) (Auto) 7 % (24-48) Monocytes (%) (Auto) 6 % (0-9) Eosinophils (%) (Auto) 1 % (0-3) Basophils (%) (Auto) 0 % (0-3) Neutrophils # (Auto) 10.7 x10^3/uL (1.8-7.7) Lymphocytes # (Auto) 0.9 x10^3/uL (1.0-4.8) Monocytes # (Auto) 0.7 x10^3/uL (0.0-1.1) Eosinophils # (Auto) 0.1 x10^3/uL (0.0-0.7) Basophils # (Auto) 0.0 x10^3/uL (0.0-0.2) Laboratory Tests Test 03/22/20 13:16 03/22/20 16:59 03/22/20 20:21 03/23/20 06:10 Glucose (Fingerstick) 166 mg/dL (70-99) 203 mg/dL (70-99) 162 mg/dL (70-99) White Blood Count 11.0 x10^3/uL (4.0-11.0) Red Blood Count 2.34 x10^6/uL (4.30-5.70) Hemoglobin 6.8 g/dL (13.0-17.5) Hematocrit 19.7 % (39.0-53.0) Mean Corpuscular Volume 84 fL (79-100) Mean Corpuscular Hemoglobin 29 pg (25-35) Mean Corpuscular Hemoglobin Concent 34 g/dL (31-37) Red Cell Distribution Width 15.6 % (11.5-14.5) Platelet Count 128 x10^3/uL (140-400) Neutrophils (%) (Auto) 88 % (31-73) Lymphocytes (%) (Auto) 6 % (24-48) Monocytes (%) (Auto) 5 % (0-9) Eosinophils (%) (Auto) 1 % (0-3) Basophils (%) (Auto) 0 % (0-3) Neutrophils # (Auto) 9.7 x10^3/uL (1.8-7.7) Lymphocytes # (Auto) 0.6 x10^3/uL (1.0-4.8) Monocytes # (Auto) 0.6 x10^3/uL (0.0-1.1) Eosinophils # (Auto) 0.1 x10^3/uL (0.0-0.7) Basophils # (Auto) 0.0 x10^3/uL (0.0-0.2) Sodium Level 124 mmol/L (136-145) Potassium Level 4.1 mmol/L (3.5-5.1) Chloride Level 93 mmol/L (98-107) Carbon Dioxide Level 26 mmol/L (21-32) Anion Gap 5 (6-14) Blood Urea Nitrogen 14 mg/dL (8-26) Creatinine 1.1 mg/dL (0.7-1.3) Estimated GFR (Cockcroft-Gault) 68.3 Glucose Level 177 mg/dL (70-99) Calcium Level 7.1 mg/dL (8.5-10.1) Magnesium Level 1.6 mg/dL (1.8-2.4) Test 03/23/20 08:19 03/23/20 08:30 Glucose (Fingerstick) 156 mg/dL (70-99) White Blood Count 12.5 x10^3/uL (4.0-11.0) Red Blood Count 2.56 x10^6/uL (4.30-5.70) Hemoglobin 7.4 g/dL (13.0-17.5) Hematocrit 21.5 % (39.0-53.0) Mean Corpuscular Volume 84 fL (79-100) Mean Corpuscular Hemoglobin 29 pg (25-35) Mean Corpuscular Hemoglobin Concent 34 g/dL (31-37) Red Cell Distribution Width 15.9 % (11.5-14.5) Platelet Count 167 x10^3/uL (140-400) Neutrophils (%) (Auto) 86 % (31-73) Lymphocytes (%) (Auto) 7 % (24-48) Monocytes (%) (Auto) 6 % (0-9) Eosinophils (%) (Auto) 1 % (0-3) Basophils (%) (Auto) 0 % (0-3) Neutrophils # (Auto) 10.7 x10^3/uL (1.8-7.7) Lymphocytes # (Auto) 0.9 x10^3/uL (1.0-4.8) Monocytes # (Auto) 0.7 x10^3/uL (0.0-1.1) Eosinophils # (Auto) 0.1 x10^3/uL (0.0-0.7) Basophils # (Auto) 0.0 x10^3/uL (0.0-0.2) Microbiology 03/21/20 AFB Specimen Processing Tissue - Final, Resulted 03/21/20 Acid Fast Bacilli Culture, Resulted Pending 03/21/20 Gram Stain - Final, Resulted 03/21/20 Fungal Culture, Resulted Pending 03/21/20 Fungal Culture Result 1, Resulted Pending 03/16/20 Blood Culture - Final, Complete NO GROWTH AFTER 5 DAYS Medications Current Medications Haloperidol Lactate (Haldol Inj) 5 mg 1X ONCE IM Last administered on 03/15/20at 19:30; Start 03/15/20 at 20:00; Stop 03/15/20 at 20:01; Status DC Diphenhydramine HCl (Benadryl) 50 mg 1X ONCE IM Last administered on 03/15/20at 19:30; Start 03/15/20 at 20:00; Stop 03/15/20 at 20:01; Status DC Lorazepam (Ativan Inj) 1 mg 1X ONCE IVP Last administered on 03/15/20at 20:55; Start 03/15/20 at 20:00; Stop 03/15/20 at 20:01; Status DC Dextrose (Dextrose 50%-Water Syringe) 25 gm 1X ONCE IV ; Start 03/15/20 at 21:30; Stop 03/15/20 at 21:23; Status DC Dextrose 1,000 ml @ 75 mls/hr 1X ONCE IV Last administered on 03/15/20at 21:03; Start 03/15/20 at 21:30; Stop 03/15/20 at 21:23; Status DC Sodium Chloride 154 meq/Dextrose 1,038.5 ml @ 75 mls/hr [id number] IV Last administered on 03/16/20at 12:30; Start 03/15/20 at 22:00; Stop 03/16/20 at 21:59; Status DC Ceftriaxone Sodium (Rocephin) 2 gm 1X ONCE IVP Last administered on 03/15/20at 22:36; Start 03/15/20 at 22:00; Stop 03/15/20 at 22:01; Status DC Ondansetron HCl (Zofran) 4 mg PRN Q8HRS PRN IV NAUSEA/VOMITING 1ST CHOICE; Start 03/15/20 at 21:30; Stop 03/16/20 at 20:48; Status DC Lorazepam (Ativan Inj) 2 mg 1X ONCE IVP Last administered on 03/15/20at 23:37; Start 03/15/20 at 23:45; Stop 03/15/20 at 23:46; Status DC Lorazepam (Ativan Inj) 1 mg PRN Q4HRS PRN IVP ANXIETY / AGITATION Last administered on 03/21/20at 17:16; Start 03/16/20 at 03:15 Amlodipine Besylate (Norvasc) 10 mg DAILY PO Last administered on 03/23/20at 08:27; Start 03/16/20 at 09:00 Atorvastatin Calcium (Lipitor) 20 mg QHS PO Last administered on 03/22/20at 21:00; Start 03/16/20 at 21:00 Diclofenac Sodium (Voltaren) 1 rama PRN QID PRN TP PAIN; Start 03/16/20 at 08:00 Lidocaine (Lidoderm) 1 patch PRN DAILY PRN TP TOPICAL PAIN; Start 03/16/20 at 08:00; Stop 03/17/20 at 07:16; Status DC Montelukast Sodium (Singulair) 10 mg DAILY PO Last administered on 03/23/20at 08:22; Start 03/16/20 at 09:00 Polyethylene Glycol (miraLAX PACKET) 17 gm PRN DAILY PRN PO CONSTIPATION; Start 03/16/20 at 08:00 Non-Formulary Medication (Albuterol Sulfate (Ventolin Hfa Inhaler)) 2 puff PRN Q4-6HRS IH ; Start 03/16/20 at 08:00; Status UNV Duloxetine HCl (Cymbalta) 60 mg BID PO Last administered on 03/23/20at 08:23; Start 03/16/20 at 09:00 Insulin Glargine (Lantus Syringe) 10 unit QHS SQ Last administered on 03/17/20at 22:17; Start 03/16/20 at 21:00; Stop 03/18/20 at 13:25; Status DC Pantoprazole Sodium (Protonix) 40 mg DAILYAC PO Last administered on 03/18/20at 04:58; Start 03/16/20 at 08:30; Stop 03/18/20 at 14:14; Status DC Linagliptin (Tradjenta) 5 mg DAILY PO Last administered on 03/23/20at 08:22; Start 03/16/20 at 09:00 Insulin Human Lispro (HumaLOG) 0-7 UNITS TIDACHC SQ Last administered on 03/23/20at 08:36; Start 03/16/20 at 11:30 Dextrose (Dextrose 50%-Water Syringe) 12.5 gm PRN Q15MIN PRN IV SEE COMMENTS; Start 03/16/20 at 08:00 Albuterol Sulfate (Ventolin Neb Soln) 2.5 mg PRN Q4HRS PRN NEB SHORTNESS OF BREATH; Start 03/16/20 at 08:30 Haloperidol Lactate (Haldol Inj) 5 mg PRN Q6HRS PRN IVP AGITATION Last administered on 03/21/20at 18:05; Start 03/16/20 at 10:45 Fentanyl Citrate (Fentanyl 2ml Vial) 25 mcg PRN Q3HRS PRN IVP MOD-SEVERE PAIN Last administered on 03/16/20at 12:33; Start 03/16/20 at 11:00; Stop 03/17/20 at 20:17; Status DC Diphenhydramine HCl (Benadryl) 25 mg PRN Q6HRS PRN IVP ITCHING Last administered on 03/16/20at 13:41; Start 03/16/20 at 13:45; Stop 03/22/20 at 07:49; Status DC Metoprolol Tartrate (Lopressor) 25 mg BID PO Last administered on 03/23/20at 08:23; Start 03/16/20 at 15:30 Ondansetron HCl (Zofran) 4 mg PRN Q4HRS PRN IV NAUSEA/VOMITING 1ST CHOICE; Start 03/16/20 at 21:00 Heparin Sodium (Porcine) (Heparin Sodium) 5,000 unit Q8HRS SQ Last administered on 03/18/20at 05:01; Start 03/16/20 at 22:00; Stop 03/18/20 at 14:34; Status DC Ceftriaxone Sodium (Rocephin) 1 gm Q24H IVP Last administered on 03/16/20at 21:35; Start 03/16/20 at 22:00; Stop 03/17/20 at 20:23; Status DC Acetaminophen (Tylenol Supp) 650 mg PRN Q6HRS PRN NE MILD PAIN / TEMP > 100.3'F Last administered on 03/21/20at 17:29; Start 03/16/20 at 23:00 Sodium Chloride 154 meq/Dextrose 1,038.5 ml @ 75 mls/hr [id number] IV Last administered on 03/17/20at 04:45; Start 03/17/20 at 04:45; Stop 03/17/20 at 13:10; Status DC Dextrose/Sodium Chloride 1,000 ml @ 150 mls/hr Q6H40M IV Last administered on 03/18/20at 02:00; Start 03/17/20 at 17:30; Stop 03/18/20 at 13:23; Status DC Atenolol (Tenormin) 25 mg DAILY PO ; Start 03/17/20 at 14:00; Stop 03/17/20 at 14:42; Status DC Lorazepam (Ativan) 1 mg PRN BID PRN PO ANXIETY / AGITATION Last administered on 03/23/20at 04:20; Start 03/17/20 at 14:00 Tizanidine HCl (Zanaflex) 4 mg PRN Q6HRS PRN PO MUSCLE PAIN; Start 03/17/20 at 14:00 Diclofenac Sodium (Voltaren) 75 mg BID PO ; Start 03/17/20 at 21:00; Stop 03/17/20 at 20:22; Status DC Non-Formulary Medication (Ondansetron Hcl ) 8 mg PRN BID PRN PO NAUSEA/VOMITING; Start 03/17/20 at 14:00; Stop 03/18/20 at 16:12; Status DC Oxycodone HCl (Roxicodone) 15 mg PRN Q6HRS PRN PO MODERATE TO SEVERE PAIN Last administered on 03/21/20at 08:32; Start 03/17/20 at 14:15 Metoprolol Tartrate (Lopressor Vial) 5 mg 1X ONCE IVP Last administered on 03/17/20at 19:51; Start 03/17/20 at 19:30; Stop 03/17/20 at 19:31; Status DC Metoprolol Tartrate (Lopressor) 25 mg 1X ONCE PO Last administered on 03/17/20at 21:12; Start 03/17/20 at 21:00; Stop 03/17/20 at 21:01; Status DC Fentanyl Citrate (Fentanyl 2ml Vial) 50 mcg PRN Q3HRS PRN IVP MOD-SEVERE PAIN Last administered on 03/21/20at 03:25; Start 03/17/20 at 20:30; Stop 03/21/20 at 10:54; Status DC Ketorolac Tromethamine (Toradol 15mg Vial) 15 mg 1X ONCE IVP Last administered on 03/17/20at 20:34; Start 03/17/20 at 20:15; Stop 03/17/20 at 20:22; Status DC Piperacillin Sod/ Tazobactam Sod (Zosyn Per Pharmacy) 1 each PRN DAILY PRN MC SEE COMMENTS; Start 03/17/20 at 20:30; Stop 03/18/20 at 13:08; Status DC Piperacillin Sod/ Tazobactam Sod 3.375 gm/Sodium Chloride 50 ml @ 100 mls/hr Q6H IV Last administered on 03/18/20at 08:37; Start 03/17/20 at 21:00; Stop 03/18/20 at 12:23; Status DC Albuterol/ Ipratropium (Duoneb) 3 ml RTQID NEB Last administered on 03/23/20at 07:56; Start 03/18/20 at 12:00 Methylprednisolone Sodium Succinate (SOLU-Medrol 125MG VIAL) 125 mg 1X ONCE IV Last administered on 03/18/20at 12:26; Start 03/18/20 at 13:00; Stop 03/18/20 at 13:01; Status DC Budesonide (Pulmicort) 0.5 mg RTBID NEB Last administered on 03/23/20at 07:56; Start 03/18/20 at 20:00 Meropenem 500 mg/ Sodium Chloride 50 ml @ 100 mls/hr Q6HRS IV Last administered on 03/20/20at 05:38; Start 03/18/20 at 13:30; Stop 03/20/20 at 07:33; Status DC Metoprolol Tartrate (Lopressor Vial) 5 mg 1X ONCE IVP Last administered on 03/18/20at 13:49; Start 03/18/20 at 13:15; Stop 03/18/20 at 13:16; Status DC Insulin Glargine (Lantus Syringe) 5 unit QHS SQ Last administered on 03/22/20at 21:34; Start 03/18/20 at 21:00 Furosemide (Lasix) 20 mg 1X ONCE IVP Last administered on 03/18/20at 14:23; Start 03/18/20 at 14:30; Stop 03/18/20 at 14:31; Status DC Pantoprazole Sodium (PROTONIX VIAL for IV PUSH) 40 mg BIDAC IVP Last administered on 03/23/20at 08:23; Start 03/18/20 at 16:30 Magnesium Sulfate 50 ml @ 25 mls/hr 1X ONCE IV Last administered on 03/18/20at 17:36; Start 03/18/20 at 16:00; Stop 03/18/20 at 17:59; Status DC Metoprolol Tartrate (Lopressor Vial) 5 mg PRN Q6HRS PRN IVP HYPERTENSION; Start 03/18/20 at 15:45 Albumin Human 500 ml @ 125 mls/hr PRN DAILY PRN IV SEE COMMENTS Last administered on 03/18/20at 16:07; Start 03/18/20 at 15:45 Norepinephrine Bitartrate 8 mg/ Dextrose 258 ml @ 17.705 mls/ hr CONT PRN IV PER PROTOCOL; Start 03/18/20 at 15:45 Ondansetron HCl (Zofran Odt) 4 mg PRN BID PRN PO NAUSEA/VOMITING; Start 03/18/20 at 16:15; Stop 03/18/20 at 16:12; Status DC Ondansetron HCl (Zofran Odt) 8 mg PRN BID PRN PO NAUSEA/VOMITING; Start 03/18/20 at 16:15 Ceftriaxone Sodium (Rocephin) 2 gm Q24H IVP Last administered on 03/22/20at 08:54; Start 03/20/20 at 08:00 Lactobacillus Rhamnosus (Culturelle) 1 cap BID PO Last administered on 03/23/20at 08:22; Start 03/20/20 at 21:00 Amino Acids/ Glycerin/ Electrolytes 1,000 ml @ 80 mls/hr [id number] IV Last administered on 03/21/20at 01:55; Start 03/20/20 at 14:00; Stop 03/21/20 at 12:25; Status DC Midazolam HCl (Versed) 2 mg STK-MED ONCE .ROUTE ; Start 03/21/20 at 09:39; Stop 03/21/20 at 09:39; Status DC Fentanyl Citrate (Fentanyl 2ml Vial) 100 mcg STK-MED ONCE .ROUTE ; Start 03/21/20 at 09:39; Stop 03/21/20 at 09:39; Status DC Lidocaine HCl (Buffered Lidocaine 1%) 3 ml STK-MED ONCE .ROUTE ; Start 03/21/20 at 09:41; Stop 03/21/20 at 09:41; Status DC Lidocaine HCl (Buffered Lidocaine 1%) 3 ml 1X ONCE IJ Last administered on at 10:00; Start 03/21/20 at 10:00; Stop 03/21/20 at 10:10; Status DC Midazolam HCl (Versed) 2 mg 1X ONCE IV Last administered on 03/21/20at 10:00; Start 03/21/20 at 10:00; Stop 03/21/20 at 10:10; Status DC Fentanyl Citrate (Fentanyl 2ml Vial) 100 mcg 1X ONCE IV Last administered on 03/21/20at 10:00; Start 03/21/20 at 10:00; Stop 03/21/20 at 10:10; Status DC Insulin Human Lispro (HumaLOG) 10 units 1X ONCE SQ ; Start 03/21/20 at 10:45; Stop 03/21/20 at 10:46; Status DC Naloxone HCl (Narcan) 0.4 mg PRN Q2MIN PRN IV SEE INSTRUCTIONS; Start 03/21/20 at 11:00; Stop 03/21/20 at 20:59; Status DC Hydromorphone HCl 30 ml @ 0 mls/hr CONT PRN PRN IV BREAKTHROUGH PAIN; Start 03/21/20 at 11:00; Status UNV Hydromorphone HCl 30 ml @ 0 mls/hr CONT PRN PRN IV BREAKTHROUGH PAIN Last administered on 03/21/20at 11:57; Start 03/21/20 at 11:00; Stop 03/21/20 at 19:01; Status DC Hydromorphone HCl (Dilaudid) 0.1 mg PRN Q2HR PRN IVP MODERATE TO SEVERE PAIN; Start 03/21/20 at 11:00 Diphenhydramine HCl (Benadryl) 25 mg PRN Q6HRS PRN IVP ITCHING; Start 03/21/20 at 11:00 Heparin Sodium (Porcine) (HEPARIN for NUC MED) 100 unit 1X ONCE IV ; Start 03/21/20 at 14:45; Stop 03/21/20 at 14:46; Status DC Acetaminophen (Tylenol) 650 mg 1X ONCE PO ; Start 03/21/20 at 17:15; Stop 03/21/20 at 17:16; Status DC Hydromorphone HCl 30 ml @ 0 mls/hr CONT PRN PRN IV BREAKTHROUGH PAIN; Start 03/21/20 at 19:00; Stop 03/22/20 at 12:00; Status DC Sodium Chloride 1,000 ml @ 75 mls/hr [id number] IV Last administered on 03/22/20at 23:02; Start 03/21/20 at 19:00 Hydromorphone HCl (Dilaudid) 0.5 mg PRN Q1HR PRN IVP PAIN Last administered on 03/22/20at 13:11; Start 03/21/20 at 21:00 Lorazepam (Ativan Inj) 1 mg PRN Q6HRS PRN IVP ANXIETY / AGITATION; Start 03/22/20 at 00:45; Stop 03/22/20 at 07:48; Status DC Magnesium Sulfate 50 ml @ 25 mls/hr 1X ONCE IV Last administered on 03/22/20at 13:26; Start 03/22/20 at 11:30; Stop 03/22/20 at 13:29; Status DC Magnesium Sulfate 50 ml @ 25 mls/hr 1X ONCE IV ; Start 03/22/20 at 11:45; Stop 03/22/20 at 13:44; Status UNV Naloxone HCl (Narcan) 0.4 mg PRN Q2MIN PRN IV SEE INSTRUCTIONS; Start 03/22/20 at 15:30 Sodium Chloride 1,000 ml @ 25 mls/hr Q24H IV ; Start 03/22/20 at 15:27 Hydromorphone HCl 30 ml @ 0 mls/hr CONT PRN PRN IV PER PROTOCOL; Start 03/22/20 at 15:45 Active Scripts Active Miralax (Polyethylene Glycol 3350) 17 Gm Powd.pack 1 Pkt PO PRN DAILY PRN Reported Etodolac 400 Mg Tablet 1 Tab PO BID Ondansetron Hcl 8 Mg Tablet 8 Mg PO BID PRN Oxycodone Hcl Immed.release (Oxycodone Hcl) 15 Mg Tablet 15 Mg PO PRN Q6HRS PRN Montelukast Sodium Tablet (Montelukast Sodium) 10 Mg Tablet 10 Mg PO DAILY Basaglar Kwikpen U-100 (Insulin Glargine,Hum.rec.anlog) 100 Unit/1 Ml Insuln.pen 50 Unit SQ HS Prilosec Otc (Omeprazole Magnesium) 20 Mg Tablet.dr 1 Tab PO DAILY Novolog Flexpen (Insulin Aspart) 100 Unit/1 Ml Insuln.pen 1 Unit SQ 15-20 UNITS WITH MEALS TO MAX OF 80 UNITS DAILY Atorvastatin Calcium 20 Mg Tablet 1 Tab PO DAILY Januvia (Sitagliptin Phosphate) 50 Mg Tablet 1 Tab PO DAILY Tizanidine Hcl 4 Mg Tablet 1 Tab PO Q6HRS PRN can have 1-2 tabs Lidoderm (Lidocaine) 700 Mg Adh..patch 1 Patch TP DAILY PRN Ativan (Lorazepam) 1 Mg Tablet 1 Mg PO BID PRN Amlodipine Besylate 10 Mg Tablet 10 Mg PO DAILY Atenolol 25 Mg Tablet 1 Tab PO DAILY Voltaren (Diclofenac Sodium) 100 Gm Gel..gram. 1 Gm TP QID PRN Ventolin Hfa Inhaler (Albuterol Sulfate) 18 Gm Hfa.aer.ad 2 Puff IH PRN Q4-6HRS Cymbalta (Duloxetine Hcl) 60 Mg Capsule.dr 60 Mg PO BID Vitals/I & O Vital Sign - Last 24 Hours 03/22/20 03/22/20 03/22/20 03/22/20 10:00 10:40 11:37 13:11 Pulse 88 Resp 22 B/P (MAP) 106/60 (75) Pulse Ox 96 96 98 O2 Delivery Room Air Room Air Room Air 03/22/20 03/22/20 03/22/20 03/22/20 15:50 19:00 19:35 19:35 Temp 99.4 99.4 Pulse 108 Resp 22 B/P (MAP) 147/73 (97) Pulse Ox 93 95 O2 Delivery Room Air Room Air Room Air Room Air 03/22/20 03/22/20 03/23/20 03/23/20 21:00 22:29 03:00 07:00 Temp 99.7 98.4 98.4 99.7 98.4 98.4 Pulse 108 112 72 109 Resp 20 20 18 B/P (MAP) 147/73 124/70 (88) 127/61 (83) 120/75 (90) Pulse Ox 94 93 100 O2 Delivery Room Air Room Air Room Air 03/23/20 03/23/20 03/23/20 07:58 08:23 08:27 Pulse 109 109 B/P (MAP) 120/75 120/75 Pulse Ox 95 O2 Delivery Room Air Intake and Output 03/22/20 03/22/20 03/23/20 15:00 23:00 07:00 Intake Total 240 ml 900 ml 1665 ml Output Total 750 ml 1000 ml 550 ml Balance -510 ml -100 ml 1115 ml Justicifation of Admission Dx: Justifications for Admission: Justification of Admission Dx: Yes FLORY COELHO MD Mar 23, 2020 09:08
[2020-03-23] MEDS ORDERED: SODIUM CHLORIDE 3 % 500 ML IV ONE (09:30)
--- NOTE | 2020-03-23 09:45 | NUR ---
Per Vane in pharmacy, 3% saline is to administered in ICU. Dr. Manuel notified, telephone orders received. Vane notified that pt will not be transferring to ICU, she d/c'd the 3% saline.
[2020-03-23] MEDS: cefTRIAXone IV Push 2 GM VIAL. IVP SCH (09:48)
--- NOTE | 2020-03-23 10:10 | PDOC ---
Renal-Progress Notes Subjective Notes Notes NECK PAIN History of Present Illness Hx of present illness STABLE Vitals Vitals Vital Signs Date Time Temp Pulse Resp B/P (MAP) Pulse Ox O2 Delivery O2 Flow Rate FiO2 03/23/20 08:27 109 120/75 03/23/20 07:58 95 Room Air 03/23/20 07:00 98.4 18 98.4 Weight Weight [ ] I.O. Intake and Output Intake and Output 03/23/20 07:00 Intake Total 2805 ml Output Total 2300 ml Balance 505 ml Intake Oral 480 ml IV Total 1800 ml Other 525 ml Output Urine Total 2250 ml Drainage Total 50 ml Labs Labs Laboratory Tests Test 03/22/20 13:16 03/22/20 16:59 03/22/20 20:21 03/23/20 06:10 Glucose (Fingerstick) 166 mg/dL (70-99) 203 mg/dL (70-99) 162 mg/dL (70-99) White Blood Count 11.0 x10^3/uL (4.0-11.0) Red Blood Count 2.34 x10^6/uL (4.30-5.70) Hemoglobin 6.8 g/dL (13.0-17.5) Hematocrit 19.7 % (39.0-53.0) Mean Corpuscular Volume 84 fL (79-100) Mean Corpuscular Hemoglobin 29 pg (25-35) Mean Corpuscular Hemoglobin Concent 34 g/dL (31-37) Red Cell Distribution Width 15.6 % (11.5-14.5) Platelet Count 128 x10^3/uL (140-400) Neutrophils (%) (Auto) 88 % (31-73) Lymphocytes (%) (Auto) 6 % (24-48) Monocytes (%) (Auto) 5 % (0-9) Eosinophils (%) (Auto) 1 % (0-3) Basophils (%) (Auto) 0 % (0-3) Neutrophils # (Auto) 9.7 x10^3/uL (1.8-7.7) Lymphocytes # (Auto) 0.6 x10^3/uL (1.0-4.8) Monocytes # (Auto) 0.6 x10^3/uL (0.0-1.1) Eosinophils # (Auto) 0.1 x10^3/uL (0.0-0.7) Basophils # (Auto) 0.0 x10^3/uL (0.0-0.2) Sodium Level 124 mmol/L (136-145) Potassium Level 4.1 mmol/L (3.5-5.1) Chloride Level 93 mmol/L (98-107) Carbon Dioxide Level 26 mmol/L (21-32) Anion Gap 5 (6-14) Blood Urea Nitrogen 14 mg/dL (8-26) Creatinine 1.1 mg/dL (0.7-1.3) Estimated GFR (Cockcroft-Gault) 68.3 Glucose Level 177 mg/dL (70-99) Calcium Level 7.1 mg/dL (8.5-10.1) Magnesium Level 1.6 mg/dL (1.8-2.4) Test 03/23/20 08:19 03/23/20 08:30 Glucose (Fingerstick) 156 mg/dL (70-99) White Blood Count 12.5 x10^3/uL (4.0-11.0) Red Blood Count 2.56 x10^6/uL (4.30-5.70) Hemoglobin 7.4 g/dL (13.0-17.5) Hematocrit 21.5 % (39.0-53.0) Mean Corpuscular Volume 84 fL (79-100) Mean Corpuscular Hemoglobin 29 pg (25-35) Mean Corpuscular Hemoglobin Concent 34 g/dL (31-37) Red Cell Distribution Width 15.9 % (11.5-14.5) Platelet Count 167 x10^3/uL (140-400) Neutrophils (%) (Auto) 86 % (31-73) Lymphocytes (%) (Auto) 7 % (24-48) Monocytes (%) (Auto) 6 % (0-9) Eosinophils (%) (Auto) 1 % (0-3) Basophils (%) (Auto) 0 % (0-3) Neutrophils # (Auto) 10.7 x10^3/uL (1.8-7.7) Lymphocytes # (Auto) 0.9 x10^3/uL (1.0-4.8) Monocytes # (Auto) 0.7 x10^3/uL (0.0-1.1) Eosinophils # (Auto) 0.1 x10^3/uL (0.0-0.7) Basophils # (Auto) 0.0 x10^3/uL (0.0-0.2) Micro Micro Microbiology 03/21/20 AFB Specimen Processing Tissue - Final, Resulted 03/21/20 Acid Fast Bacilli Culture, Resulted Pending 03/21/20 Gram Stain - Final, Resulted 03/21/20 Fungal Culture, Resulted Pending 03/21/20 Fungal Culture Result 1, Resulted Pending 03/16/20 Blood Culture - Final, Complete NO GROWTH AFTER 5 DAYS Review of Systems Constitutional: yes: other (CONFUSED) Physical Exam General Appearance: no apparent distress Skin: warm Respiratory: bilateral CTA Heart: S1S2, RRR Abdomen: soft, bowel sounds present Genitourinary: bladder flat Extremities: pulses present Neurology: alert, oriented, follow commands Musculoskeletal: Osteoarthritis, Other (cervical stenosis; chronic opioid use) Assessment Assessment IMP HYPONATREMIA COLBY RESOLVED CKD STAGE 3 WITH CR AT BASELINE ANEMIA LOW MAG HYPOGLYCEMIA MET ENCEPHALOPATHY LEUCOCYTOSIS MALNUTRITION LIVER ABSCESS-S/P DRAIN PLAN REPLACE MG STOP IVF'S HERNANDEZ OUT ENC PO REPEAT LABS IN AM WILL FOLLOW NADIR REILLY MD Mar 23, 2020 10:10
--- NOTE | 2020-03-23 10:20 | NUR ---
Pt. laying flat, c/o SOB, sating 92% on RA Pt. stated he feels much better sitting up. 2L NC place,pt now sating 96%.
[2020-03-23] MEDS ORDERED: MAGNESIUM SULFATE 2GM 50 ML IV ONE (10:30)
--- NOTE | 2020-03-23 10:54 | NUR ---
SW following. Discussed with RN, pt is a transfer from ICU - pt accepted at [facility] pending bed and medically clear for discharge. KAMRAN spoke with Dr. Poe, pt needing blood today, so likely will not be ready today. SW will continue to follow.
--- NOTE | 2020-03-23 12:10 | PDOC ---
G I PROGRESS NOTE Subjective Continues with bloody stools. Getting more blood. Wants more pain meds. Tolerating clears. Objective Reviewed [facility] records briefly. Mention of bile leak "at the clip" on initial ERCP--does have a clip distal to the cystic duct clips and this would seem perhaps a CBD issue. IR drained 2 fluid collections. Second ERCP mentions leak from cystic duct. First stent was plastic; second he has now metallic. No mention of any liver lesion. Physical Exam Lungs clear. RRR Abdomen soft, not distended. Serosanguinous output from drain. Review of Relevant I have reviewed the following items clarisse (where applicable) has been applied. Labs Laboratory Tests Test 03/21/20 12:26 03/21/20 17:06 03/21/20 18:10 03/21/20 21:18 Glucose (Fingerstick) 166 mg/dL (70-99) 150 mg/dL (70-99) 191 mg/dL (70-99) Hemoglobin 7.7 g/dL (13.0-17.5) Test 03/22/20 00:00 03/22/20 05:55 03/22/20 08:07 03/22/20 13:16 White Blood Count 7.5 x10^3/uL (4.0-11.0) 9.0 x10^3/uL (4.0-11.0) Red Blood Count 2.34 x10^6/uL (4.30-5.70) 2.66 x10^6/uL (4.30-5.70) Hemoglobin 6.8 g/dL (13.0-17.5) 7.8 g/dL (13.0-17.5) Hematocrit 19.8 % (39.0-53.0) 22.7 % (39.0-53.0) Mean Corpuscular Volume 85 fL (79-100) 85 fL (79-100) Mean Corpuscular Hemoglobin 29 pg (25-35) 29 pg (25-35) Mean Corpuscular Hemoglobin Concent 34 g/dL (31-37) 34 g/dL (31-37) Red Cell Distribution Width 16.5 % (11.5-14.5) 15.9 % (11.5-14.5) Platelet Count 84 x10^3/uL (140-400) 86 x10^3/uL (140-400) Neutrophils (%) (Auto) 81 % (31-73) Lymphocytes (%) (Auto) 12 % (24-48) Monocytes (%) (Auto) 5 % (0-9) Eosinophils (%) (Auto) 2 % (0-3) Basophils (%) (Auto) 1 % (0-3) Neutrophils # (Auto) 7.3 x10^3/uL (1.8-7.7) Lymphocytes # (Auto) 1.1 x10^3/uL (1.0-4.8) Monocytes # (Auto) 0.4 x10^3/uL (0.0-1.1) Eosinophils # (Auto) 0.1 x10^3/uL (0.0-0.7) Basophils # (Auto) 0.1 x10^3/uL (0.0-0.2) Sodium Level 127 mmol/L (136-145) Potassium Level 3.9 mmol/L (3.5-5.1) Chloride Level 97 mmol/L (98-107) Carbon Dioxide Level 26 mmol/L (21-32) Anion Gap 4 (6-14) Blood Urea Nitrogen 18 mg/dL (8-26) Creatinine 1.1 mg/dL (0.7-1.3) Estimated GFR (Cockcroft-Gault) 68.3 Glucose Level 128 mg/dL (70-99) Calcium Level 7.3 mg/dL (8.5-10.1) Phosphorus Level 2.7 mg/dL (2.6-4.7) Magnesium Level 1.5 mg/dL (1.8-2.4) Glucose (Fingerstick) 130 mg/dL (70-99) 166 mg/dL (70-99) Test 03/22/20 16:59 03/22/20 20:21 03/23/20 06:10 03/23/20 08:19 Glucose (Fingerstick) 203 mg/dL (70-99) 162 mg/dL (70-99) 156 mg/dL (70-99) White Blood Count 11.0 x10^3/uL (4.0-11.0) Red Blood Count 2.34 x10^6/uL (4.30-5.70) Hemoglobin 6.8 g/dL (13.0-17.5) Hematocrit 19.7 % (39.0-53.0) Mean Corpuscular Volume 84 fL (79-100) Mean Corpuscular Hemoglobin 29 pg (25-35) Mean Corpuscular Hemoglobin Concent 34 g/dL (31-37) Red Cell Distribution Width 15.6 % (11.5-14.5) Platelet Count 128 x10^3/uL (140-400) Neutrophils (%) (Auto) 88 % (31-73) Lymphocytes (%) (Auto) 6 % (24-48) Monocytes (%) (Auto) 5 % (0-9) Eosinophils (%) (Auto) 1 % (0-3) Basophils (%) (Auto) 0 % (0-3) Neutrophils # (Auto) 9.7 x10^3/uL (1.8-7.7) Lymphocytes # (Auto) 0.6 x10^3/uL (1.0-4.8) Monocytes # (Auto) 0.6 x10^3/uL (0.0-1.1) Eosinophils # (Auto) 0.1 x10^3/uL (0.0-0.7) Basophils # (Auto) 0.0 x10^3/uL (0.0-0.2) Sodium Level 124 mmol/L (136-145) Potassium Level 4.1 mmol/L (3.5-5.1) Chloride Level 93 mmol/L (98-107) Carbon Dioxide Level 26 mmol/L (21-32) Anion Gap 5 (6-14) Blood Urea Nitrogen 14 mg/dL (8-26) Creatinine 1.1 mg/dL (0.7-1.3) Estimated GFR (Cockcroft-Gault) 68.3 Glucose Level 177 mg/dL (70-99) Calcium Level 7.1 mg/dL (8.5-10.1) Magnesium Level 1.6 mg/dL (1.8-2.4) Test 03/23/20 08:30 03/23/20 11:22 White Blood Count 12.5 x10^3/uL (4.0-11.0) Red Blood Count 2.56 x10^6/uL (4.30-5.70) Hemoglobin 7.4 g/dL (13.0-17.5) Hematocrit 21.5 % (39.0-53.0) Mean Corpuscular Volume 84 fL (79-100) Mean Corpuscular Hemoglobin 29 pg (25-35) Mean Corpuscular Hemoglobin Concent 34 g/dL (31-37) Red Cell Distribution Width 15.9 % (11.5-14.5) Platelet Count 167 x10^3/uL (140-400) Neutrophils (%) (Auto) 86 % (31-73) Lymphocytes (%) (Auto) 7 % (24-48) Monocytes (%) (Auto) 6 % (0-9) Eosinophils (%) (Auto) 1 % (0-3) Basophils (%) (Auto) 0 % (0-3) Neutrophils # (Auto) 10.7 x10^3/uL (1.8-7.7) Lymphocytes # (Auto) 0.9 x10^3/uL (1.0-4.8) Monocytes # (Auto) 0.7 x10^3/uL (0.0-1.1) Eosinophils # (Auto) 0.1 x10^3/uL (0.0-0.7) Basophils # (Auto) 0.0 x10^3/uL (0.0-0.2) Glucose (Fingerstick) 154 mg/dL (70-99) Laboratory Tests Test 03/22/20 13:16 03/22/20 16:59 03/22/20 20:21 03/23/20 06:10 Glucose (Fingerstick) 166 mg/dL (70-99) 203 mg/dL (70-99) 162 mg/dL (70-99) White Blood Count 11.0 x10^3/uL (4.0-11.0) Red Blood Count 2.34 x10^6/uL (4.30-5.70) Hemoglobin 6.8 g/dL (13.0-17.5) Hematocrit 19.7 % (39.0-53.0) Mean Corpuscular Volume 84 fL (79-100) Mean Corpuscular Hemoglobin 29 pg (25-35) Mean Corpuscular Hemoglobin Concent 34 g/dL (31-37) Red Cell Distribution Width 15.6 % (11.5-14.5) Platelet Count 128 x10^3/uL (140-400) Neutrophils (%) (Auto) 88 % (31-73) Lymphocytes (%) (Auto) 6 % (24-48) Monocytes (%) (Auto) 5 % (0-9) Eosinophils (%) (Auto) 1 % (0-3) Basophils (%) (Auto) 0 % (0-3) Neutrophils # (Auto) 9.7 x10^3/uL (1.8-7.7) Lymphocytes # (Auto) 0.6 x10^3/uL (1.0-4.8) Monocytes # (Auto) 0.6 x10^3/uL (0.0-1.1) Eosinophils # (Auto) 0.1 x10^3/uL (0.0-0.7) Basophils # (Auto) 0.0 x10^3/uL (0.0-0.2) Sodium Level 124 mmol/L (136-145) Potassium Level 4.1 mmol/L (3.5-5.1) Chloride Level 93 mmol/L (98-107) Carbon Dioxide Level 26 mmol/L (21-32) Anion Gap 5 (6-14) Blood Urea Nitrogen 14 mg/dL (8-26) Creatinine 1.1 mg/dL (0.7-1.3) Estimated GFR (Cockcroft-Gault) 68.3 Glucose Level 177 mg/dL (70-99) Calcium Level 7.1 mg/dL (8.5-10.1) Magnesium Level 1.6 mg/dL (1.8-2.4) Test 03/23/20 08:19 03/23/20 08:30 03/23/20 11:22 Glucose (Fingerstick) 156 mg/dL (70-99) 154 mg/dL (70-99) White Blood Count 12.5 x10^3/uL (4.0-11.0) Red Blood Count 2.56 x10^6/uL (4.30-5.70) Hemoglobin 7.4 g/dL (13.0-17.5) Hematocrit 21.5 % (39.0-53.0) Mean Corpuscular Volume 84 fL (79-100) Mean Corpuscular Hemoglobin 29 pg (25-35) Mean Corpuscular Hemoglobin Concent 34 g/dL (31-37) Red Cell Distribution Width 15.9 % (11.5-14.5) Platelet Count 167 x10^3/uL (140-400) Neutrophils (%) (Auto) 86 % (31-73) Lymphocytes (%) (Auto) 7 % (24-48) Monocytes (%) (Auto) 6 % (0-9) Eosinophils (%) (Auto) 1 % (0-3) Basophils (%) (Auto) 0 % (0-3) Neutrophils # (Auto) 10.7 x10^3/uL (1.8-7.7) Lymphocytes # (Auto) 0.9 x10^3/uL (1.0-4.8) Monocytes # (Auto) 0.7 x10^3/uL (0.0-1.1) Eosinophils # (Auto) 0.1 x10^3/uL (0.0-0.7) Basophils # (Auto) 0.0 x10^3/uL (0.0-0.2) Microbiology 03/21/20 AFB Specimen Processing Tissue - Final, Resulted 03/21/20 Acid Fast Bacilli Culture, Resulted Pending 03/21/20 Gram Stain - Final, Resulted 03/21/20 Fungal Culture, Resulted Pending 03/21/20 Fungal Culture Result 1, Resulted Pending 03/16/20 Blood Culture - Final, Complete NO GROWTH AFTER 5 DAYS E.coli from hepatic drain. Vitals/I & O Vital Sign - Last 24 Hours 03/22/20 03/22/20 03/22/20 03/22/20 13:11 15:50 19:00 19:35 Temp 99.4 99.4 Pulse 108 Resp 22 22 B/P (MAP) 147/73 (97) Pulse Ox 98 93 O2 Delivery Room Air Room Air Room Air 03/22/20 03/22/20 03/22/20 03/23/20 19:35 21:00 22:29 03:00 Temp 99.7 98.4 99.7 98.4 Pulse 108 112 72 Resp 20 20 B/P (MAP) 147/73 124/70 (88) 127/61 (83) Pulse Ox 95 94 93 O2 Delivery Room Air Room Air Room Air 03/23/20 03/23/20 03/23/20 03/23/20 07:00 07:50 07:58 08:23 Temp 98.4 98.4 Pulse 109 109 Resp 18 B/P (MAP) 120/75 (90) 120/75 Pulse Ox 100 95 O2 Delivery Room Air Room Air Room Air 03/23/20 03/23/20 03/23/20 03/23/20 08:27 10:06 10:25 11:25 Temp 98.8 98.0 98.4 98.8 98.0 98.4 Pulse 109 105 95 88 Resp 18 16 18 B/P (MAP) 120/75 123/73 121/96 109/65 03/23/20 11:28 Temp 98.4 98.4 Pulse 88 Resp 18 B/P (MAP) 109/65 (80) Pulse Ox 96 O2 Delivery Room Air Intake and Output 03/22/20 03/22/20 03/23/20 15:00 23:00 07:00 Intake Total 240 ml 900 ml 1665 ml Output Total 750 ml 1000 ml 550 ml Balance -510 ml -100 ml 1115 ml Problem List Problems Medical Problems: (1) Acute kidney injury Status: Acute (2) Encephalopathy Status: Acute (3) Hypoglycemia Status: Acute (4) Hyponatremia Status: Acute (5) Seizure Status: Acute Assessment Bile leak; CBD injury as well? Current stent seems clinically patent. Hematochezia continues. Not candidate for endoscopy at this time unless life- threatening bleeding. No mention of colonic mass on imaging from [facility]; this may be artifactual or possibly due to ischemic colitis. Liver abcess. Portal of entry would seem to have been from biliary manipulation/injury. Plan of Care Note Continue support; transfuse prn. Would not advance diet above clears at this point. Justicifation of Admission Dx: Justifications for Admission: Justification of Admission Dx: Yes JAGDISH SEYMOUR MD Mar 23, 2020 12:10
--- NOTE | 2020-03-23 12:23 | PDOC ---
SURGICAL PROGRESS NOTE Subjective Patient states his head hurts he fell off the commode today hitting his head on the floor. Would like more pain medicine Vital Signs Vital Signs Date Time Temp Pulse Resp B/P (MAP) Pulse Ox O2 Delivery O2 Flow Rate FiO2 03/23/20 11:28 98.4 88 18 109/65 (80) 96 Room Air 98.4 I&O Intake and Output 03/23/20 07:00 Intake Total 2805 ml Output Total 2300 ml Balance 505 ml Intake Oral 480 ml IV Total 1800 ml Other 525 ml Output Urine Total 2250 ml Drainage Total 50 ml PATIENT HAS A HERNANDEZ: No General: Alert, Oriented X3, Cooperative, mild distress Abdomen: Normal bowel sounds, Soft, No tenderness, Other (JULIA drain in place wi th serosanguineous drainage) Labs Laboratory Tests Test 03/21/20 12:26 03/21/20 17:06 03/21/20 18:10 03/21/20 21:18 Glucose (Fingerstick) 166 mg/dL (70-99) 150 mg/dL (70-99) 191 mg/dL (70-99) Hemoglobin 7.7 g/dL (13.0-17.5) Test 03/22/20 00:00 03/22/20 05:55 03/22/20 08:07 03/22/20 13:16 White Blood Count 7.5 x10^3/uL (4.0-11.0) 9.0 x10^3/uL (4.0-11.0) Red Blood Count 2.34 x10^6/uL (4.30-5.70) 2.66 x10^6/uL (4.30-5.70) Hemoglobin 6.8 g/dL (13.0-17.5) 7.8 g/dL (13.0-17.5) Hematocrit 19.8 % (39.0-53.0) 22.7 % (39.0-53.0) Mean Corpuscular Volume 85 fL (79-100) 85 fL (79-100) Mean Corpuscular Hemoglobin 29 pg (25-35) 29 pg (25-35) Mean Corpuscular Hemoglobin Concent 34 g/dL (31-37) 34 g/dL (31-37) Red Cell Distribution Width 16.5 % (11.5-14.5) 15.9 % (11.5-14.5) Platelet Count 84 x10^3/uL (140-400) 86 x10^3/uL (140-400) Neutrophils (%) (Auto) 81 % (31-73) Lymphocytes (%) (Auto) 12 % (24-48) Monocytes (%) (Auto) 5 % (0-9) Eosinophils (%) (Auto) 2 % (0-3) Basophils (%) (Auto) 1 % (0-3) Neutrophils # (Auto) 7.3 x10^3/uL (1.8-7.7) Lymphocytes # (Auto) 1.1 x10^3/uL (1.0-4.8) Monocytes # (Auto) 0.4 x10^3/uL (0.0-1.1) Eosinophils # (Auto) 0.1 x10^3/uL (0.0-0.7) Basophils # (Auto) 0.1 x10^3/uL (0.0-0.2) Sodium Level 127 mmol/L (136-145) Potassium Level 3.9 mmol/L (3.5-5.1) Chloride Level 97 mmol/L (98-107) Carbon Dioxide Level 26 mmol/L (21-32) Anion Gap 4 (6-14) Blood Urea Nitrogen 18 mg/dL (8-26) Creatinine 1.1 mg/dL (0.7-1.3) Estimated GFR (Cockcroft-Gault) 68.3 Glucose Level 128 mg/dL (70-99) Calcium Level 7.3 mg/dL (8.5-10.1) Phosphorus Level 2.7 mg/dL (2.6-4.7) Magnesium Level 1.5 mg/dL (1.8-2.4) Glucose (Fingerstick) 130 mg/dL (70-99) 166 mg/dL (70-99) Test 03/22/20 16:59 03/22/20 20:21 03/23/20 06:10 03/23/20 08:19 Glucose (Fingerstick) 203 mg/dL (70-99) 162 mg/dL (70-99) 156 mg/dL (70-99) White Blood Count 11.0 x10^3/uL (4.0-11.0) Red Blood Count 2.34 x10^6/uL (4.30-5.70) Hemoglobin 6.8 g/dL (13.0-17.5) Hematocrit 19.7 % (39.0-53.0) Mean Corpuscular Volume 84 fL (79-100) Mean Corpuscular Hemoglobin 29 pg (25-35) Mean Corpuscular Hemoglobin Concent 34 g/dL (31-37) Red Cell Distribution Width 15.6 % (11.5-14.5) Platelet Count 128 x10^3/uL (140-400) Neutrophils (%) (Auto) 88 % (31-73) Lymphocytes (%) (Auto) 6 % (24-48) Monocytes (%) (Auto) 5 % (0-9) Eosinophils (%) (Auto) 1 % (0-3) Basophils (%) (Auto) 0 % (0-3) Neutrophils # (Auto) 9.7 x10^3/uL (1.8-7.7) Lymphocytes # (Auto) 0.6 x10^3/uL (1.0-4.8) Monocytes # (Auto) 0.6 x10^3/uL (0.0-1.1) Eosinophils # (Auto) 0.1 x10^3/uL (0.0-0.7) Basophils # (Auto) 0.0 x10^3/uL (0.0-0.2) Sodium Level 124 mmol/L (136-145) Potassium Level 4.1 mmol/L (3.5-5.1) Chloride Level 93 mmol/L (98-107) Carbon Dioxide Level 26 mmol/L (21-32) Anion Gap 5 (6-14) Blood Urea Nitrogen 14 mg/dL (8-26) Creatinine 1.1 mg/dL (0.7-1.3) Estimated GFR (Cockcroft-Gault) 68.3 Glucose Level 177 mg/dL (70-99) Calcium Level 7.1 mg/dL (8.5-10.1) Magnesium Level 1.6 mg/dL (1.8-2.4) Test 03/23/20 08:30 03/23/20 11:22 White Blood Count 12.5 x10^3/uL (4.0-11.0) Red Blood Count 2.56 x10^6/uL (4.30-5.70) Hemoglobin 7.4 g/dL (13.0-17.5) Hematocrit 21.5 % (39.0-53.0) Mean Corpuscular Volume 84 fL (79-100) Mean Corpuscular Hemoglobin 29 pg (25-35) Mean Corpuscular Hemoglobin Concent 34 g/dL (31-37) Red Cell Distribution Width 15.9 % (11.5-14.5) Platelet Count 167 x10^3/uL (140-400) Neutrophils (%) (Auto) 86 % (31-73) Lymphocytes (%) (Auto) 7 % (24-48) Monocytes (%) (Auto) 6 % (0-9) Eosinophils (%) (Auto) 1 % (0-3) Basophils (%) (Auto) 0 % (0-3) Neutrophils # (Auto) 10.7 x10^3/uL (1.8-7.7) Lymphocytes # (Auto) 0.9 x10^3/uL (1.0-4.8) Monocytes # (Auto) 0.7 x10^3/uL (0.0-1.1) Eosinophils # (Auto) 0.1 x10^3/uL (0.0-0.7) Basophils # (Auto) 0.0 x10^3/uL (0.0-0.2) Glucose (Fingerstick) 154 mg/dL (70-99) Laboratory Tests Test 03/22/20 13:16 03/22/20 16:59 03/22/20 20:21 03/23/20 06:10 Glucose (Fingerstick) 166 mg/dL (70-99) 203 mg/dL (70-99) 162 mg/dL (70-99) White Blood Count 11.0 x10^3/uL (4.0-11.0) Red Blood Count 2.34 x10^6/uL (4.30-5.70) Hemoglobin 6.8 g/dL (13.0-17.5) Hematocrit 19.7 % (39.0-53.0) Mean Corpuscular Volume 84 fL (79-100) Mean Corpuscular Hemoglobin 29 pg (25-35) Mean Corpuscular Hemoglobin Concent 34 g/dL (31-37) Red Cell Distribution Width 15.6 % (11.5-14.5) Platelet Count 128 x10^3/uL (140-400) Neutrophils (%) (Auto) 88 % (31-73) Lymphocytes (%) (Auto) 6 % (24-48) Monocytes (%) (Auto) 5 % (0-9) Eosinophils (%) (Auto) 1 % (0-3) Basophils (%) (Auto) 0 % (0-3) Neutrophils # (Auto) 9.7 x10^3/uL (1.8-7.7) Lymphocytes # (Auto) 0.6 x10^3/uL (1.0-4.8) Monocytes # (Auto) 0.6 x10^3/uL (0.0-1.1) Eosinophils # (Auto) 0.1 x10^3/uL (0.0-0.7) Basophils # (Auto) 0.0 x10^3/uL (0.0-0.2) Sodium Level 124 mmol/L (136-145) Potassium Level 4.1 mmol/L (3.5-5.1) Chloride Level 93 mmol/L (98-107) Carbon Dioxide Level 26 mmol/L (21-32) Anion Gap 5 (6-14) Blood Urea Nitrogen 14 mg/dL (8-26) Creatinine 1.1 mg/dL (0.7-1.3) Estimated GFR (Cockcroft-Gault) 68.3 Glucose Level 177 mg/dL (70-99) Calcium Level 7.1 mg/dL (8.5-10.1) Magnesium Level 1.6 mg/dL (1.8-2.4) Test 03/23/20 08:19 03/23/20 08:30 03/23/20 11:22 Glucose (Fingerstick) 156 mg/dL (70-99) 154 mg/dL (70-99) White Blood Count 12.5 x10^3/uL (4.0-11.0) Red Blood Count 2.56 x10^6/uL (4.30-5.70) Hemoglobin 7.4 g/dL (13.0-17.5) Hematocrit 21.5 % (39.0-53.0) Mean Corpuscular Volume 84 fL (79-100) Mean Corpuscular Hemoglobin 29 pg (25-35) Mean Corpuscular Hemoglobin Concent 34 g/dL (31-37) Red Cell Distribution Width 15.9 % (11.5-14.5) Platelet Count 167 x10^3/uL (140-400) Neutrophils (%) (Auto) 86 % (31-73) Lymphocytes (%) (Auto) 7 % (24-48) Monocytes (%) (Auto) 6 % (0-9) Eosinophils (%) (Auto) 1 % (0-3) Basophils (%) (Auto) 0 % (0-3) Neutrophils # (Auto) 10.7 x10^3/uL (1.8-7.7) Lymphocytes # (Auto) 0.9 x10^3/uL (1.0-4.8) Monocytes # (Auto) 0.7 x10^3/uL (0.0-1.1) Eosinophils # (Auto) 0.1 x10^3/uL (0.0-0.7) Basophils # (Auto) 0.0 x10^3/uL (0.0-0.2) Problem List Problems Medical Problems: (1) Acute kidney injury Status: Acute (2) Encephalopathy Status: Acute (3) Hypoglycemia Status: Acute (4) Hyponatremia Status: Acute (5) Seizure Status: Acute Assessment/Plan Liver abscess drained percutaneously antibiotic coverage per infectious disease Continues to have some bloody stools getting blood transfusion currently Defer to GI for colonoscopy timing No new surgical recommendations Justicifation of Admission Dx: Justifications for Admission: Justification of Admission Dx: Yes DAKSHA SUMNER MD Mar 23, 2020 12:23
[2020-03-23] MEDS: HYDROmorphone 12mg/30ml PCA 30 ML IV PRN (13:15)
[2020-03-23] MEDS: IV NORMAL SALINE 1000ML BAG 1,000 ML IV SCH (15:27)
--- NOTE | 2020-03-23 16:57 | RAD ---
CT LUMBAR SPINE WO CONTRAST, CT THORACIC SPINE WO CONTRAST History:Reason: H/o renal failure no contrast. possible Osteomyelitis / Spl. Instructions: / History: Technique: Noncontrast CT was performed of the thoracic and lumbar spine. Multiplanar reconstructions were performed. Exposure: One or more of the following individualized dose reduction techniques were utilized for this examination: 1. Automated exposure control 2. Adjustment of the mA and/or kV according to patient size 3. Use of iterative reconstruction technique. Comparison: CT March 18, 2020 Findings: Thoracic spine CT: Moderate right and small left pleural effusion with adjacent atelectasis, increased on the right and unchanged on the left. Bilateral groundglass opacities, decreased compared to prior. Normal vertebral body height and alignment. No fracture. DISH related changes throughout the thoracic spine large bridging syndesmophytes. No evidence of endplate irregularity or destruction and no paravertebral inflammatory process to suggest discitis osteomyelitis. Mild multilevel degenerative disc changes throughout the thoracic spine. No high-grade canal narrowing. Mild facet arthropathy. No high-grade neural foraminal narrowing. Partially imaged lower cervical spondylosis. Lumbar spine CT: Pigtail drain within the right hepatic lobe. Pneumobilia. Biliary stent partially imaged. Prior left nephrectomy. Small pelvic free fluid. Normal vertebral body height and alignment. No fracture. No erosive endplate changes or paravertebral inflammatory changes to suggest discitis osteomyelitis. L1-L2: Small disc bulge. No canal or neuroforaminal narrowing. L2-L3: Broad-based disc bulge. Mild facet arthropathy. Mild canal narrowing. Ligament flavum thickening. Subarticular recess narrowing. Moderate right and mild left neuroforaminal narrowing. L3-L4: Broad-based disc bulge. Moderate facet arthropathy. Ligament of flavum thickening. Mild to moderate canal narrowing. Bilateral subarticular recess narrowing. Moderate bilateral neuroforaminal narrowing. L4-L5: Broad-based disc bulge. Moderate facet arthropathy. Postoperative changes left hemilaminectomy. Bilateral subarticular recess narrowing, right greater than left. Mild canal narrowing. Moderate bilateral neuroforaminal narrowing. L5-S1: Disc bulge. Moderate facet arthropathy. Mild canal narrowing. No neuroforaminal narrowing. The degenerative findings are progressed compared to 2017. Impression: 1. No destructive endplate changes or paravertebral inflammatory process to suggest discitis osteomyelitis although evaluation is limited on noncontrast CT. If persistent clinical concern, MRI can better evaluate. 2. Multilevel lumbar spondylosis with canal narrowing most prominent L2-L3 and L3-L4. 3. Multilevel neural foraminal narrowing most prominent L3-L4 and L4-L5. 4. Moderate right and small left pleural effusion with adjacent atelectasis, increased on the right. 5. Decreased bilateral pulmonary groundglass opacities. Electronically signed by: Darron Kothari DO (03/23/2020 4:54 PM) [facility]
[2020-03-23] MEDS: ATORVASTATIN CALCIUM 20 MG TABLET PO SCH (21:39)
[2020-03-23] MEDS: INSULIN GLARGINE SYRINGE. SQ SCH (22:01)
--- NOTE | 2020-03-23 23:20 | NUR ---
Dilaudid [employer] VICE PRESIDENT changed to 0.3 mg loading dose at this time.
[2020-03-24] VITALS (12 sets, daily range): BP systolic 97–133; BP diastolic 54–75
[2020-03-24 05:48] LABS: BASO % 0 % (0-3); EOS # 0.1 x10^3/uL (0.0-0.7); EOS % 1 % (0-3); HEMATOCRIT 26.1 % (39.0-53.0); LYMPH # 0.8 x10^3/uL (1.0-4.8); LYMPH % 8 % (24-48); MEAN CORPUSCULAR HEMOGLOBIN 30 pg (25-35); MEAN CORPUSCULAR HGB CONC 35 g/dL (31-37); MEAN CORPUSCULAR VOLUME 85 fL (79-100); MONO # 0.6 x10^3/uL (0.0-1.1); MONO % 6 % (0-9); NEUT # 8.1 x10^3/uL (1.8-7.7); NEUT % 84 % (31-73); PLATELET COUNT 242 x10^3/uL (140-400); RED BLOOD COUNT 3.07 x10^6/uL (4.30-5.70); RED CELL DISTRIBUTION WIDTH 15.6 % (11.5-14.5); WHITE BLOOD COUNT 9.6 x10^3/uL (4.0-11.0)
[2020-03-24 06:12] LABS: CALCIUM 7.8 mg/dL (8.5-10.1); GFR 76.2; MAGNESIUM 1.9 mg/dL (1.8-2.4)
--- NOTE | 2020-03-24 07:17 | NUR ---
Pt. was up most of the night trying to get out of bed. He tried to pull out his IJ a few times, tugged at his JULIA drain, and took his brief off many times. He was confused but was able to answer orientation questions. RN had to show patient how to use dilaudid TOOL BUILDER button all night.
[2020-03-24] MEDS: IPRATRPIUM/ALBUTEROL 0.5/2.5MG 3 ML NEBU. NEB SCH ×4 (07:24→20:46)
[2020-03-24] MEDS: BUDESONIDE 0.5 MG/2 ML NEBU. NEB SCH ×2 (07:24→20:46)
[2020-03-24] MEDS: INSULIN LISPRO 300 UNITS/3 ML VIAL. SQ SCH ×4 (07:30→21:00)
--- NOTE | 2020-03-24 09:05 | PDOC ---
Infectious Disease Note Subjective Subjective Has some back pain. Has some abdominal discomfort left lower quadrant with drain but ok No fevers Vital Sign Vital Signs Vital Signs Date Time Temp Pulse Resp B/P (MAP) Pulse Ox O2 Delivery O2 Flow Rate FiO2 03/24/20 07:24 Room Air 03/24/20 07:00 99.0 107 20 129/71 (90) 93 99.0 Physical Exam PHYSICAL EXAM GENERAL: Alert, awake, in bed , coop looks comfortable. Repositioned without complaints HEENT: Normocephalic, atraumatic, anicteric. Oral mucosa dry. No thrush. NECK: Supple. Right IJ present - clean LUNGS: Decreased breath sounds at bases. No wheezing. No accessory muscle use. HEART: S1, S2 regular. No murmurs. ABDOMEN: Mildly distended. Bowel sounds present, nontender, no rebound, no guarding. JULIA with serous fluid. Pump clean in LLQ EXTREMITIES: No edema, no cyanosis. Left elbow wound is clean but now open NEUROLOGIC: Alert, awake PSYCHIATRIC: Cooperative. SKIN: no rash Labs Lab Laboratory Tests Test 03/23/20 11:22 03/23/20 16:26 03/23/20 20:42 03/24/20 05:00 Glucose (Fingerstick) 154 mg/dL (70-99) 67 mg/dL (70-99) 132 mg/dL (70-99) White Blood Count 9.6 x10^3/uL (4.0-11.0) Red Blood Count 3.07 x10^6/uL (4.30-5.70) Hemoglobin 9.0 g/dL (13.0-17.5) Hematocrit 26.1 % (39.0-53.0) Mean Corpuscular Volume 85 fL (79-100) Mean Corpuscular Hemoglobin 30 pg (25-35) Mean Corpuscular Hemoglobin Concent 35 g/dL (31-37) Red Cell Distribution Width 15.6 % (11.5-14.5) Platelet Count 242 x10^3/uL (140-400) Neutrophils (%) (Auto) 84 % (31-73) Lymphocytes (%) (Auto) 8 % (24-48) Monocytes (%) (Auto) 6 % (0-9) Eosinophils (%) (Auto) 1 % (0-3) Basophils (%) (Auto) 0 % (0-3) Neutrophils # (Auto) 8.1 x10^3/uL (1.8-7.7) Lymphocytes # (Auto) 0.8 x10^3/uL (1.0-4.8) Monocytes # (Auto) 0.6 x10^3/uL (0.0-1.1) Eosinophils # (Auto) 0.1 x10^3/uL (0.0-0.7) Basophils # (Auto) 0.0 x10^3/uL (0.0-0.2) Sodium Level 124 mmol/L (136-145) Potassium Level 4.0 mmol/L (3.5-5.1) Chloride Level 90 mmol/L (98-107) Carbon Dioxide Level 27 mmol/L (21-32) Anion Gap 7 (6-14) Blood Urea Nitrogen 10 mg/dL (8-26) Creatinine 1.0 mg/dL (0.7-1.3) Estimated GFR (Cockcroft-Gault) 76.2 Glucose Level 88 mg/dL (70-99) Calcium Level 7.8 mg/dL (8.5-10.1) Magnesium Level 1.9 mg/dL (1.8-2.4) Test 03/24/20 07:43 Glucose (Fingerstick) 102 mg/dL (70-99) Micro Preliminary MANY GRAM NEGATIVE RODS on 03/22/20 at 1118 FINAL ID= [ESCHERICHIA COLI] MANY ANAEROBIC GRAM NEGATIVE RODS on 03/23/20 at 1159 FINAL ID= [BACTEROIDES THETAIOTAOMICRON G] ESCHERICHIA COLI BACTEROIDES THETAIOTAOMICRON G ANTIMICROBIAL SUSCEPTIBILITY Preliminary Comment NEG JUWAN 56 ESCHERICHIA COLI ANTIBIOTIC RESULT INTERPRETATION AMPICILLIN/SULBACTAM 16/8 I AMIKACIN <=16 S AMPICILLIN >16 R AMOXICILLIN/K CLAVULANATE <=8/4 S AZTREONAM <=4 S CEFTRIAXONE <=1 S CEFTAZIDIME <=1 S CEFOTAXIME <=2 S CONTINUED ON NEXT PAGE RUN DATE: 03/23/20 [facility] *LIVE* PAGE 2 RUN TIME: 1204 Specimen Inquiry SPEC: [id number] PATIENT: LASHAY MARQUEZ [id number] (Continued) Procedure Result ANTIMICROBIAL SUSCEPTIBILITY Preliminary (continued) CEFOXITIN <=8 S CIPROFLOXACIN <=0.25 S CEFEPIME <=2 S CEFUROXIME <=4 S CEFTAZIDIME/AVIBACTAM <=4 S ERTAPENEM <=0.5 S GENTAMICIN <=2 S LEVOFLOXACIN <=0.5 S MEROPENEM <=1 S PIPERACILLIN/TAZOBACTAM <=8 S TRIMETHOPRIM/SULFAMETHOXAZOLE >/ R TETRACYCLINE <=4 S TOBRAMYCIN <=[address] 03/23 Impression: 1. No destructive endplate changes or paravertebral inflammatory process to suggest discitis osteomyelitis although evaluation is limited on noncontrast CT. If persistent clinical concern, MRI can better evaluate. 2. Multilevel lumbar spondylosis with canal narrowing most prominent L2-L3 and L3-L4. 3. Multilevel neural foraminal narrowing most prominent L3-L4 and L4-L5. 4. Moderate right and small left pleural effusion with adjacent atelectasis, increased on the right. 5. Decreased bilateral pulmonary groundglass opacities. Microbiology 03/16/20 Blood Culture - Final, Complete NO GROWTH AFTER 5 DAYS Objective Assessment 1. Severe Sepsis present on admission from gram-negative bacteremia.03/15 03/16 - neg 2. E Coli bacteremia ? intrabdominal source s/p abscess drain 03/21 - Ecoli 3. Leukocytosis and lactic acidosis.Solumedrol - 03/18/PRBCs - better 4. Anemia, status post PRBC.03/21 and 03/23- bleed scan neg 03/21 5. Hyponatremia. 6. Encephalopathy - resolving, likely metabolic, CT head negative 7. History of renal cancer.S/P Nephrectomy 8. Abnormal LFTs ,Liver mass 9. History of ALLERGIES TO CLINDAMYCIN AND LEVAQUIN. 10. Recent placement of metallic stent 11. Thrombocytopenia - better? Sepsis vs other 12 COVID-19 neg 03/19 13. Back pain - CT without gross findings 14. Left elbow wound - open but clean Plan Plan of Care Add Flagyl for Bacteroides Wound care eval for L elbow Cont Ceftriaxone 03/20 F/u IR cults Follow up repeat blood cultures. Negative so far F/U AM labs. Anemia per primary Electrolytes per primary Maintain aspiration precaution. Local wound care as directed Discussed with nursing staff DC meropenem 03/18 - 03/20 previous Zosyn 03/17- 03/18. Dose Rocephin 03/16 GRIS CASAS MD Mar 24, 2020 09:05
[2020-03-24] MEDS: cefTRIAXone IV Push 2 GM VIAL. IVP SCH (09:33)
[2020-03-24] MEDS: PANTOPRAZOLE IV PUSH 40 MG VIAL. IVP SCH ×2 (09:34→17:59)
[2020-03-24] MEDS: amLODIPine BESYLATE 10 MG TABLET PO SCH (09:35)
[2020-03-24] MEDS: DULoxetine HCL 30 MG CAPSULE.DR PO SCH ×2 (09:35→22:17)
[2020-03-24] MEDS: MONTELUKAST SODIUM 10 MG TABLET. PO SCH (09:35)
[2020-03-24] MEDS: METOPROLOL TART IMMED RELEASE 25 MG TABLET. PO SCH ×2 (09:36→22:18)
[2020-03-24] MEDS: LINAGLIPTIN 5 MG TABLET PO SCH (09:36)
[2020-03-24] MEDS: LACTOBACILLUS RHAMNOSUS GG 1 CAPSULE. PO SCH ×2 (09:36→22:17)
--- NOTE | 2020-03-24 09:45 | PDOC ---
PULMONARY PROGRESS NOTES Subjective on RA doing well GI bleed mental status improved no wheezing Vitals Vital Signs Date Time Temp Pulse Resp B/P (MAP) Pulse Ox O2 Delivery O2 Flow Rate FiO2 03/24/20 09:36 107 129/71 03/24/20 07:24 Room Air 03/24/20 07:00 99.0 20 93 99.0 General: Alert, No acute distress Lungs: Clear Cardiovascular: S1 Abdomen: Soft, Other (obese) Neuro Exam: Alert Extremities: Other (1=edema) Labs Laboratory Tests Test 03/22/20 13:16 03/22/20 16:59 03/22/20 20:21 03/23/20 06:10 Glucose (Fingerstick) 166 mg/dL (70-99) 203 mg/dL (70-99) 162 mg/dL (70-99) White Blood Count 11.0 x10^3/uL (4.0-11.0) Red Blood Count 2.34 x10^6/uL (4.30-5.70) Hemoglobin 6.8 g/dL (13.0-17.5) Hematocrit 19.7 % (39.0-53.0) Mean Corpuscular Volume 84 fL (79-100) Mean Corpuscular Hemoglobin 29 pg (25-35) Mean Corpuscular Hemoglobin Concent 34 g/dL (31-37) Red Cell Distribution Width 15.6 % (11.5-14.5) Platelet Count 128 x10^3/uL (140-400) Neutrophils (%) (Auto) 88 % (31-73) Lymphocytes (%) (Auto) 6 % (24-48) Monocytes (%) (Auto) 5 % (0-9) Eosinophils (%) (Auto) 1 % (0-3) Basophils (%) (Auto) 0 % (0-3) Neutrophils # (Auto) 9.7 x10^3/uL (1.8-7.7) Lymphocytes # (Auto) 0.6 x10^3/uL (1.0-4.8) Monocytes # (Auto) 0.6 x10^3/uL (0.0-1.1) Eosinophils # (Auto) 0.1 x10^3/uL (0.0-0.7) Basophils # (Auto) 0.0 x10^3/uL (0.0-0.2) Sodium Level 124 mmol/L (136-145) Potassium Level 4.1 mmol/L (3.5-5.1) Chloride Level 93 mmol/L (98-107) Carbon Dioxide Level 26 mmol/L (21-32) Anion Gap 5 (6-14) Blood Urea Nitrogen 14 mg/dL (8-26) Creatinine 1.1 mg/dL (0.7-1.3) Estimated GFR (Cockcroft-Gault) 68.3 Glucose Level 177 mg/dL (70-99) Calcium Level 7.1 mg/dL (8.5-10.1) Magnesium Level 1.6 mg/dL (1.8-2.4) Test 03/23/20 08:19 03/23/20 08:30 03/23/20 11:22 03/23/20 16:26 Glucose (Fingerstick) 156 mg/dL (70-99) 154 mg/dL (70-99) 67 mg/dL (70-99) White Blood Count 12.5 x10^3/uL (4.0-11.0) Red Blood Count 2.56 x10^6/uL (4.30-5.70) Hemoglobin 7.4 g/dL (13.0-17.5) Hematocrit 21.5 % (39.0-53.0) Mean Corpuscular Volume 84 fL (79-100) Mean Corpuscular Hemoglobin 29 pg (25-35) Mean Corpuscular Hemoglobin Concent 34 g/dL (31-37) Red Cell Distribution Width 15.9 % (11.5-14.5) Platelet Count 167 x10^3/uL (140-400) Neutrophils (%) (Auto) 86 % (31-73) Lymphocytes (%) (Auto) 7 % (24-48) Monocytes (%) (Auto) 6 % (0-9) Eosinophils (%) (Auto) 1 % (0-3) Basophils (%) (Auto) 0 % (0-3) Neutrophils # (Auto) 10.7 x10^3/uL (1.8-7.7) Lymphocytes # (Auto) 0.9 x10^3/uL (1.0-4.8) Monocytes # (Auto) 0.7 x10^3/uL (0.0-1.1) Eosinophils # (Auto) 0.1 x10^3/uL (0.0-0.7) Basophils # (Auto) 0.0 x10^3/uL (0.0-0.2) Test 03/23/20 20:42 03/24/20 05:00 03/24/20 07:43 Glucose (Fingerstick) 132 mg/dL (70-99) 102 mg/dL (70-99) White Blood Count 9.6 x10^3/uL (4.0-11.0) Red Blood Count 3.07 x10^6/uL (4.30-5.70) Hemoglobin 9.0 g/dL (13.0-17.5) Hematocrit 26.1 % (39.0-53.0) Mean Corpuscular Volume 85 fL (79-100) Mean Corpuscular Hemoglobin 30 pg (25-35) Mean Corpuscular Hemoglobin Concent 35 g/dL (31-37) Red Cell Distribution Width 15.6 % (11.5-14.5) Platelet Count 242 x10^3/uL (140-400) Neutrophils (%) (Auto) 84 % (31-73) Lymphocytes (%) (Auto) 8 % (24-48) Monocytes (%) (Auto) 6 % (0-9) Eosinophils (%) (Auto) 1 % (0-3) Basophils (%) (Auto) 0 % (0-3) Neutrophils # (Auto) 8.1 x10^3/uL (1.8-7.7) Lymphocytes # (Auto) 0.8 x10^3/uL (1.0-4.8) Monocytes # (Auto) 0.6 x10^3/uL (0.0-1.1) Eosinophils # (Auto) 0.1 x10^3/uL (0.0-0.7) Basophils # (Auto) 0.0 x10^3/uL (0.0-0.2) Sodium Level 124 mmol/L (136-145) Potassium Level 4.0 mmol/L (3.5-5.1) Chloride Level 90 mmol/L (98-107) Carbon Dioxide Level 27 mmol/L (21-32) Anion Gap 7 (6-14) Blood Urea Nitrogen 10 mg/dL (8-26) Creatinine 1.0 mg/dL (0.7-1.3) Estimated GFR (Cockcroft-Gault) 76.2 Glucose Level 88 mg/dL (70-99) Calcium Level 7.8 mg/dL (8.5-10.1) Magnesium Level 1.9 mg/dL (1.8-2.4) Laboratory Tests Test 03/23/20 11:22 03/23/20 16:26 03/23/20 20:42 03/24/20 05:00 Glucose (Fingerstick) 154 mg/dL (70-99) 67 mg/dL (70-99) 132 mg/dL (70-99) White Blood Count 9.6 x10^3/uL (4.0-11.0) Red Blood Count 3.07 x10^6/uL (4.30-5.70) Hemoglobin 9.0 g/dL (13.0-17.5) Hematocrit 26.1 % (39.0-53.0) Mean Corpuscular Volume 85 fL (79-100) Mean Corpuscular Hemoglobin 30 pg (25-35) Mean Corpuscular Hemoglobin Concent 35 g/dL (31-37) Red Cell Distribution Width 15.6 % (11.5-14.5) Platelet Count 242 x10^3/uL (140-400) Neutrophils (%) (Auto) 84 % (31-73) Lymphocytes (%) (Auto) 8 % (24-48) Monocytes (%) (Auto) 6 % (0-9) Eosinophils (%) (Auto) 1 % (0-3) Basophils (%) (Auto) 0 % (0-3) Neutrophils # (Auto) 8.1 x10^3/uL (1.8-7.7) Lymphocytes # (Auto) 0.8 x10^3/uL (1.0-4.8) Monocytes # (Auto) 0.6 x10^3/uL (0.0-1.1) Eosinophils # (Auto) 0.1 x10^3/uL (0.0-0.7) Basophils # (Auto) 0.0 x10^3/uL (0.0-0.2) Sodium Level 124 mmol/L (136-145) Potassium Level 4.0 mmol/L (3.5-5.1) Chloride Level 90 mmol/L (98-107) Carbon Dioxide Level 27 mmol/L (21-32) Anion Gap 7 (6-14) Blood Urea Nitrogen 10 mg/dL (8-26) Creatinine 1.0 mg/dL (0.7-1.3) Estimated GFR (Cockcroft-Gault) 76.2 Glucose Level 88 mg/dL (70-99) Calcium Level 7.8 mg/dL (8.5-10.1) Magnesium Level 1.9 mg/dL (1.8-2.4) Test 03/24/20 07:43 Glucose (Fingerstick) 102 mg/dL (70-99) Medications Active Scripts Medications Dose Route/Sig Max Daily Dose Days Date Category Dose Instructions Etodolac 400 Mg Tablet 1 Tab PO BID 03/16/20 Reported Ondansetron Hcl 8 Mg Tablet 8 Mg PO BID PRN 03/16/20 Reported Oxycodone Hcl Immed.release (Oxycodone Hcl) 15 Mg Tablet 15 Mg PO PRN Q6HRS PRN 03/16/20 Reported Miralax (Polyethylene Glycol 3350) 17 Gm Powd.pack 1 Pkt PO PRN DAILY PRN 04/17/18 Rx Montelukast Sodium Tablet (Montelukast Sodium) 10 Mg Tablet 10 Mg PO DAILY 04/14/18 Reported Basaglar Kwikpen U-100 (Insulin Glargine,Hum.rec.anlog) 100 Unit/1 Ml Insuln.pen 50 Unit SQ HS 04/14/18 Reported Prilosec Otc (Omeprazole Magnesium) 20 Mg Tablet.dr 1 Tab PO DAILY 02/08/16 Reported Novolog Flexpen (Insulin Aspart) 100 Unit/1 Ml Insuln.pen 1 Unit SQ 11/17/15 Reported 15-20 UNITS WITH MEALS TO MAX OF 80 UNITS DAILY Atorvastatin Calcium 20 Mg Tablet 1 Tab PO DAILY 11/17/15 Reported Januvia (Sitagliptin Phosphate) 50 Mg Tablet 1 Tab PO DAILY 11/17/15 Reported Tizanidine Hcl 4 Mg Tablet 1 Tab PO Q6HRS PRN 11/17/15 Reported can have 1-2 tabs Lidoderm (Lidocaine) 700 Mg Adh..patch 1 Patch TP DAILY PRN 11/17/15 Reported Ativan (Lorazepam) 1 Mg Tablet 1 Mg PO BID PRN 11/17/15 Reported Amlodipine Besylate 10 Mg Tablet 10 Mg PO DAILY 11/17/15 Reported Atenolol 25 Mg Tablet 1 Tab PO DAILY 11/17/15 Reported Voltaren (Diclofenac Sodium) 100 Gm Gel..gram. 1 Gm TP QID PRN 11/17/15 Reported Ventolin Hfa Inhaler (Albuterol Sulfate) 18 Gm Hfa.aer.ad 2 Puff IH PRN Q4-6HRS 11/17/15 Reported Cymbalta (Duloxetine Hcl) 60 Mg Capsule.dr 60 Mg PO BID 11/17/15 Reported Impression . 1. Acute respiratory failure with audible upper airway wheezing 03/19 resolved . Could be related to reactive airway disease. The patient has no known asthma. Possibility of vocal cord dysfunction secondary to anxiety would also be a consideration. No recurrence and resolved 2. Anemia, status post transfusion.on going GI bleed 3. Hypoglycemic encephalopathy, present on admission , improved 4. Chronic kidney disease. 5. Abnormal ct chest with basal atelectasis/ vs pneumonia 6. Liver abscess. s/p drain 7. E Coli bacteremia likely intrabdominal source s/p abscess drain 03/21 - Ecoli 8. Abnormal D-Dimer , could be related to Liver abscess . on RA. no suspicion for PE, Neg dopplers Plan . 1. pulmonary samuel better 2. off Nasal canula, off BIPAP 3. We will continue DuoNebs. 4. Pulmicort nebulizer. 5. Tx PRN, GI rec 6. Continue antibiotics. 7. s/p liver aspiration. 8. ID rec/ abx Discussed with RN 9. dopplers lower extremity neg RAHEEM GAMA MD Mar 24, 2020 09:45
--- NOTE | 2020-03-24 11:19 | PDOC ---
PROGRESS NOTES Chief Complaint Chief Complaint GI BLEED, ongoing anemia, symptomatic, TRANSFUSED hemoglobin back down to 6.8 Hyponatremia still low Hepatic mass s/p IR biliary drainpending cultures History of renal cell carcinoma Altered mental status Recent placement of percutaneous biliary drain Severe sepsis Gram negative bacteremiacontinue ceftriaxone acute METABOLIC ENCEPHALOPATHY - improved COPD - will cont home nebs Large irregular hepatic mass. This is likely a necrotic metastasis. An abscess is not excluded. 6 is unchanged. Normocytic anemia with GI bleed (melena/hematochezia): Hgb 6.8 and just received 1U transfusion PUD: prepyloric ulcers via EGD 03/10/2020 Biliary stent and mild pneumobilia seen previously. Altered mental status CKD STAGE 3 with Cr 1.6-2.0 // baseline Recent placement of percutaneous biliary drain [facility] The left colon is collapsed. A stricture at the splenic flexure is possible. Apparently issues w/ confusion since cholecystectomy at on 12/25/19. Per nurse d/w , "drain" placed ~3 weeks after surgery, then "stent" placed ~1 week ago. ?bile leak Reported h/o hyponatremia per labs at . Liver biopsy 2009 from LEFT lobe of liver during w/u of renal cancer; cavernous hemangioma. Acute diastolic CHF with pleural effusioncontinue metoprolol per cardiology History of Present Illness History of Present Illness Mr Corona is a 59yo M w/ PMHx chronic Bronchitis, RCC s/p left nephrectomy 2009, Diabetes-Type II, High Cholesterol, Hypertension, 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 She notes he has had a progressive decline over the last month or so. Patient is encephalopathic and unable to answer questions. Patient given glucagon prior to arrival and blood sugar improved from 55-83. notes issues w/ confusion since cholecystectomy at on 12/25/19. notes an IR drain was placed after a readmission for worsening and remained in place for 3 weeks and was removed at the end of January, then he returned for common bile duct stent placement last week. She notes that she was told that he had a "small spot" on his liver at [facility] and that his sodium was "better" at 129 last week. She also notes he has lost 46# in the past 2 months and she is not aware of any diagnosis for him. Patient is not even speaking, he is moaning and writhing in bed. Has been tested 3x for covid 19 and negative with last check over a week ago. CXR with pulmonary vasculare congestion and CT head negative for acute process. Labs significant for WBC 17.2, Hb 8.2, platelets 244, INR 1.3, Na 123, K 4.7, BUN 49, Cr 3.4, Albumin 1.7, Glucose 97, Mg 1.7, AST 84, ALT 66, Alk phos 228, Bili 1.2. BNP [id number] Admitted to ICU for further care. 03/23, need try to transfer to [facility] soon, hgb drop again today, 1 u PRBC ordered, GI and surg following discussed abx with ID, following he is weak, not eating much, DNR reviewed, 03/24, hgb better ID changing abx cultures pending PULM following, needs LTAC likely consider tomorrow Vitals Vitals Vital Signs Date Time Temp Pulse Resp B/P (MAP) Pulse Ox O2 Delivery O2 Flow Rate FiO2 03/24/20 09:36 107 129/71 03/24/20 07:24 Room Air 03/24/20 07:00 99.0 20 93 99.0 Physical Exam Physical Exam GENERAL: Alert, awake, in bed , coop looks comfortable. Repositioned without complaints HEENT: Normocephalic, atraumatic, anicteric. Oral mucosa dry. No thrush. NECK: Supple. Right IJ present - clean LUNGS: Decreased breath sounds at bases. No wheezing. No accessory muscle use. HEART: S1, S2 regular. No murmurs. ABDOMEN: Mildly distended. Bowel sounds present, nontender, no rebound, no guarding. JULIA with serous fluid. Pump clean in LLQ EXTREMITIES: No edema, no cyanosis. Left elbow wound is clean but now open NEUROLOGIC: Alert, awake PSYCHIATRIC: Cooperative. SKIN: no rash General: Alert, Oriented X3, Cooperative, mild distress Heart: Regular rate Lungs: Clear Abdomen: Normal bowel sounds, Soft, No tenderness, Other (JULIA drain in place with serosanguineous drainage) Extremities: No edema Skin: No significant lesion Labs LABS Laboratory Tests Test 03/23/20 11:22 03/23/20 16:26 03/23/20 20:42 03/24/20 05:00 Glucose (Fingerstick) 154 mg/dL (70-99) 67 mg/dL (70-99) 132 mg/dL (70-99) White Blood Count 9.6 x10^3/uL (4.0-11.0) Red Blood Count 3.07 x10^6/uL (4.30-5.70) Hemoglobin 9.0 g/dL (13.0-17.5) Hematocrit 26.1 % (39.0-53.0) Mean Corpuscular Volume 85 fL (79-100) Mean Corpuscular Hemoglobin 30 pg (25-35) Mean Corpuscular Hemoglobin Concent 35 g/dL (31-37) Red Cell Distribution Width 15.6 % (11.5-14.5) Platelet Count 242 x10^3/uL (140-400) Neutrophils (%) (Auto) 84 % (31-73) Lymphocytes (%) (Auto) 8 % (24-48) Monocytes (%) (Auto) 6 % (0-9) Eosinophils (%) (Auto) 1 % (0-3) Basophils (%) (Auto) 0 % (0-3) Neutrophils # (Auto) 8.1 x10^3/uL (1.8-7.7) Lymphocytes # (Auto) 0.8 x10^3/uL (1.0-4.8) Monocytes # (Auto) 0.6 x10^3/uL (0.0-1.1) Eosinophils # (Auto) 0.1 x10^3/uL (0.0-0.7) Basophils # (Auto) 0.0 x10^3/uL (0.0-0.2) Sodium Level 124 mmol/L (136-145) Potassium Level 4.0 mmol/L (3.5-5.1) Chloride Level 90 mmol/L (98-107) Carbon Dioxide Level 27 mmol/L (21-32) Anion Gap 7 (6-14) Blood Urea Nitrogen 10 mg/dL (8-26) Creatinine 1.0 mg/dL (0.7-1.3) Estimated GFR (Cockcroft-Gault) 76.2 Glucose Level 88 mg/dL (70-99) Calcium Level 7.8 mg/dL (8.5-10.1) Magnesium Level 1.9 mg/dL (1.8-2.4) Test 03/24/20 07:43 Glucose (Fingerstick) 102 mg/dL (70-99) Assessment and Plan Assessmemt and Plan Problems Medical Problems: (1) Acute kidney injury Status: Acute (2) Encephalopathy Status: Acute (3) Hypoglycemia Status: Acute (4) Hyponatremia Status: Acute (5) Seizure Status: Acute Comment Review of Relevant I have reviewed the following items clarisse (where applicable) has been applied. Labs Laboratory Tests Test 03/22/20 13:16 03/22/20 16:59 03/22/20 20:21 03/23/20 06:10 Glucose (Fingerstick) 166 mg/dL (70-99) 203 mg/dL (70-99) 162 mg/dL (70-99) White Blood Count 11.0 x10^3/uL (4.0-11.0) Red Blood Count 2.34 x10^6/uL (4.30-5.70) Hemoglobin 6.8 g/dL (13.0-17.5) Hematocrit 19.7 % (39.0-53.0) Mean Corpuscular Volume 84 fL (79-100) Mean Corpuscular Hemoglobin 29 pg (25-35) Mean Corpuscular Hemoglobin Concent 34 g/dL (31-37) Red Cell Distribution Width 15.6 % (11.5-14.5) Platelet Count 128 x10^3/uL (140-400) Neutrophils (%) (Auto) 88 % (31-73) Lymphocytes (%) (Auto) 6 % (24-48) Monocytes (%) (Auto) 5 % (0-9) Eosinophils (%) (Auto) 1 % (0-3) Basophils (%) (Auto) 0 % (0-3) Neutrophils # (Auto) 9.7 x10^3/uL (1.8-7.7) Lymphocytes # (Auto) 0.6 x10^3/uL (1.0-4.8) Monocytes # (Auto) 0.6 x10^3/uL (0.0-1.1) Eosinophils # (Auto) 0.1 x10^3/uL (0.0-0.7) Basophils # (Auto) 0.0 x10^3/uL (0.0-0.2) Sodium Level 124 mmol/L (136-145) Potassium Level 4.1 mmol/L (3.5-5.1) Chloride Level 93 mmol/L (98-107) Carbon Dioxide Level 26 mmol/L (21-32) Anion Gap 5 (6-14) Blood Urea Nitrogen 14 mg/dL (8-26) Creatinine 1.1 mg/dL (0.7-1.3) Estimated GFR (Cockcroft-Gault) 68.3 Glucose Level 177 mg/dL (70-99) Calcium Level 7.1 mg/dL (8.5-10.1) Magnesium Level 1.6 mg/dL (1.8-2.4) Test 03/23/20 08:19 03/23/20 08:30 03/23/20 11:22 03/23/20 16:26 Glucose (Fingerstick) 156 mg/dL (70-99) 154 mg/dL (70-99) 67 mg/dL (70-99) White Blood Count 12.5 x10^3/uL (4.0-11.0) Red Blood Count 2.56 x10^6/uL (4.30-5.70) Hemoglobin 7.4 g/dL (13.0-17.5) Hematocrit 21.5 % (39.0-53.0) Mean Corpuscular Volume 84 fL (79-100) Mean Corpuscular Hemoglobin 29 pg (25-35) Mean Corpuscular Hemoglobin Concent 34 g/dL (31-37) Red Cell Distribution Width 15.9 % (11.5-14.5) Platelet Count 167 x10^3/uL (140-400) Neutrophils (%) (Auto) 86 % (31-73) Lymphocytes (%) (Auto) 7 % (24-48) Monocytes (%) (Auto) 6 % (0-9) Eosinophils (%) (Auto) 1 % (0-3) Basophils (%) (Auto) 0 % (0-3) Neutrophils # (Auto) 10.7 x10^3/uL (1.8-7.7) Lymphocytes # (Auto) 0.9 x10^3/uL (1.0-4.8) Monocytes # (Auto) 0.7 x10^3/uL (0.0-1.1) Eosinophils # (Auto) 0.1 x10^3/uL (0.0-0.7) Basophils # (Auto) 0.0 x10^3/uL (0.0-0.2) Test 03/23/20 20:42 03/24/20 05:00 03/24/20 07:43 Glucose (Fingerstick) 132 mg/dL (70-99) 102 mg/dL (70-99) White Blood Count 9.6 x10^3/uL (4.0-11.0) Red Blood Count 3.07 x10^6/uL (4.30-5.70) Hemoglobin 9.0 g/dL (13.0-17.5) Hematocrit 26.1 % (39.0-53.0) Mean Corpuscular Volume 85 fL (79-100) Mean Corpuscular Hemoglobin 30 pg (25-35) Mean Corpuscular Hemoglobin Concent 35 g/dL (31-37) Red Cell Distribution Width 15.6 % (11.5-14.5) Platelet Count 242 x10^3/uL (140-400) Neutrophils (%) (Auto) 84 % (31-73) Lymphocytes (%) (Auto) 8 % (24-48) Monocytes (%) (Auto) 6 % (0-9) Eosinophils (%) (Auto) 1 % (0-3) Basophils (%) (Auto) 0 % (0-3) Neutrophils # (Auto) 8.1 x10^3/uL (1.8-7.7) Lymphocytes # (Auto) 0.8 x10^3/uL (1.0-4.8) Monocytes # (Auto) 0.6 x10^3/uL (0.0-1.1) Eosinophils # (Auto) 0.1 x10^3/uL (0.0-0.7) Basophils # (Auto) 0.0 x10^3/uL (0.0-0.2) Sodium Level 124 mmol/L (136-145) Potassium Level 4.0 mmol/L (3.5-5.1) Chloride Level 90 mmol/L (98-107) Carbon Dioxide Level 27 mmol/L (21-32) Anion Gap 7 (6-14) Blood Urea Nitrogen 10 mg/dL (8-26) Creatinine 1.0 mg/dL (0.7-1.3) Estimated GFR (Cockcroft-Gault) 76.2 Glucose Level 88 mg/dL (70-99) Calcium Level 7.8 mg/dL (8.5-10.1) Magnesium Level 1.9 mg/dL (1.8-2.4) Laboratory Tests Test 03/23/20 11:22 03/23/20 16:26 03/23/20 20:42 03/24/20 05:00 Glucose (Fingerstick) 154 mg/dL (70-99) 67 mg/dL (70-99) 132 mg/dL (70-99) White Blood Count 9.6 x10^3/uL (4.0-11.0) Red Blood Count 3.07 x10^6/uL (4.30-5.70) Hemoglobin 9.0 g/dL (13.0-17.5) Hematocrit 26.1 % (39.0-53.0) Mean Corpuscular Volume 85 fL (79-100) Mean Corpuscular Hemoglobin 30 pg (25-35) Mean Corpuscular Hemoglobin Concent 35 g/dL (31-37) Red Cell Distribution Width 15.6 % (11.5-14.5) Platelet Count 242 x10^3/uL (140-400) Neutrophils (%) (Auto) 84 % (31-73) Lymphocytes (%) (Auto) 8 % (24-48) Monocytes (%) (Auto) 6 % (0-9) Eosinophils (%) (Auto) 1 % (0-3) Basophils (%) (Auto) 0 % (0-3) Neutrophils # (Auto) 8.1 x10^3/uL (1.8-7.7) Lymphocytes # (Auto) 0.8 x10^3/uL (1.0-4.8) Monocytes # (Auto) 0.6 x10^3/uL (0.0-1.1) Eosinophils # (Auto) 0.1 x10^3/uL (0.0-0.7) Basophils # (Auto) 0.0 x10^3/uL (0.0-0.2) Sodium Level 124 mmol/L (136-145) Potassium Level 4.0 mmol/L (3.5-5.1) Chloride Level 90 mmol/L (98-107) Carbon Dioxide Level 27 mmol/L (21-32) Anion Gap 7 (6-14) Blood Urea Nitrogen 10 mg/dL (8-26) Creatinine 1.0 mg/dL (0.7-1.3) Estimated GFR (Cockcroft-Gault) 76.2 Glucose Level 88 mg/dL (70-99) Calcium Level 7.8 mg/dL (8.5-10.1) Magnesium Level 1.9 mg/dL (1.8-2.4) Test 03/24/20 07:43 Glucose (Fingerstick) 102 mg/dL (70-99) Microbiology 03/21/20 AFB Specimen Processing Tissue - Final, Resulted 03/21/20 Acid Fast Bacilli Culture, Resulted Pending 03/21/20 Gram Stain - Final, Resulted 03/21/20 Fungal Culture, Resulted Pending 03/21/20 Fungal Culture Result 1, Resulted Pending 03/16/20 Blood Culture - Final, Complete NO GROWTH AFTER 5 DAYS Medications Current Medications Haloperidol Lactate (Haldol Inj) 5 mg 1X ONCE IM Last administered on 03/15/20at 19:30; Start 03/15/20 at 20:00; Stop 03/15/20 at 20:01; Status DC Diphenhydramine HCl (Benadryl) 50 mg 1X ONCE IM Last administered on 03/15/20at 19:30; Start 03/15/20 at 20:00; Stop 03/15/20 at 20:01; Status DC Lorazepam (Ativan Inj) 1 mg 1X ONCE IVP Last administered on 03/15/20at 20:55; Start 03/15/20 at 20:00; Stop 03/15/20 at 20:01; Status DC Dextrose (Dextrose 50%-Water Syringe) 25 gm 1X ONCE IV ; Start 03/15/20 at 21:30; Stop 03/15/20 at 21:23; Status DC Dextrose 1,000 ml @ 75 mls/hr 1X ONCE IV Last administered on 03/15/20at 21:03; Start 03/15/20 at 21:30; Stop 03/15/20 at 21:23; Status DC Sodium Chloride 154 meq/Dextrose 1,038.5 ml @ 75 mls/hr [id number] IV Last administered on 03/16/20at 12:30; Start 03/15/20 at 22:00; Stop 03/16/20 at 21:59; Status DC Ceftriaxone Sodium (Rocephin) 2 gm 1X ONCE IVP Last administered on 03/15/20at 22:36; Start 03/15/20 at 22:00; Stop 03/15/20 at 22:01; Status DC Ondansetron HCl (Zofran) 4 mg PRN Q8HRS PRN IV NAUSEA/VOMITING 1ST CHOICE; Start 03/15/20 at 21:30; Stop 03/16/20 at 20:48; Status DC Lorazepam (Ativan Inj) 2 mg 1X ONCE IVP Last administered on 03/15/20at 23:37; Start 03/15/20 at 23:45; Stop 03/15/20 at 23:46; Status DC Lorazepam (Ativan Inj) 1 mg PRN Q4HRS PRN IVP ANXIETY / AGITATION Last administered on 03/24/20at 04:29; Start 03/16/20 at 03:15 Amlodipine Besylate (Norvasc) 10 mg DAILY PO Last administered on 03/24/20at 09:35; Start 03/16/20 at 09:00 Atorvastatin Calcium (Lipitor) 20 mg QHS PO Last administered on 03/23/20at 21:39; Start 03/16/20 at 21:00 Diclofenac Sodium (Voltaren) 1 rama PRN QID PRN TP PAIN; Start 03/16/20 at 08:00 Lidocaine (Lidoderm) 1 patch PRN DAILY PRN TP TOPICAL PAIN; Start 03/16/20 at 08:00; Stop 03/17/20 at 07:16; Status DC Montelukast Sodium (Singulair) 10 mg DAILY PO Last administered on 03/24/20at 09:35; Start 03/16/20 at 09:00 Polyethylene Glycol (miraLAX PACKET) 17 gm PRN DAILY PRN PO CONSTIPATION; Start 03/16/20 at 08:00 Non-Formulary Medication (Albuterol Sulfate (Ventolin Hfa Inhaler)) 2 puff PRN Q4-6HRS IH ; Start 03/16/20 at 08:00; Status UNV Duloxetine HCl (Cymbalta) 60 mg BID PO Last administered on 03/24/20 09:35; Start 03/16/20 at 09:00 Insulin Glargine (Lantus Syringe) 10 unit QHS SQ Last administered on 03/17/20at 22:17; Start 03/16/20 at 21:00; Stop 03/18/20 at 13:25; Status DC Pantoprazole Sodium (Protonix) 40 mg DAILYAC PO Last administered on 03/18/20at 04:58; Start 03/16/20 at 08:30; Stop 03/18/20 at 14:14; Status DC Linagliptin (Tradjenta) 5 mg DAILY PO Last administered on 03/24/20 09:36; Start 03/16/20 at 09:00 Insulin Human Lispro (HumaLOG) 0-7 UNITS TIDACHC SQ Last administered on 03/23/20at 12:16; Start 03/16/20 at 11:30 Dextrose (Dextrose 50%-Water Syringe) 12.5 gm PRN Q15MIN PRN IV SEE COMMENTS; Start 03/16/20 at 08:00 Albuterol Sulfate (Ventolin Neb Soln) 2.5 mg PRN Q4HRS PRN NEB SHORTNESS OF BREATH; Start 03/16/20 at 08:30 Haloperidol Lactate (Haldol Inj) 5 mg PRN Q6HRS PRN IVP AGITATION Last administered on 03/21/20at 18:05; Start 03/16/20 at 10:45 Fentanyl Citrate (Fentanyl 2ml Vial) 25 mcg PRN Q3HRS PRN IVP MOD-SEVERE PAIN Last administered on 03/16/20at 12:33; Start 03/16/20 at 11:00; Stop 03/17/20 at 20:17; Status DC Diphenhydramine HCl (Benadryl) 25 mg PRN Q6HRS PRN IVP ITCHING Last administered on 03/16/20at 13:41; Start 03/16/20 at 13:45; Stop 03/22/20 at 07:49; Status DC Metoprolol Tartrate (Lopressor) 25 mg BID PO Last administered on 03/24/20at 09:36; Start 03/16/20 at 15:30 Ondansetron HCl (Zofran) 4 mg PRN Q4HRS PRN IV NAUSEA/VOMITING 1ST CHOICE; Start 03/16/20 at 21:00 Heparin Sodium (Porcine) (Heparin Sodium) 5,000 unit Q8HRS SQ Last administered on 03/18/20at 05:01; Start 03/16/20 at 22:00; Stop 03/18/20 at 14:34; Status DC Ceftriaxone Sodium (Rocephin) 1 gm Q24H IVP Last administered on 03/16/20at 21:35; Start 03/16/20 at 22:00; Stop 03/17/20 at 20:23; Status DC Acetaminophen (Tylenol Supp) 650 mg PRN Q6HRS PRN MD MILD PAIN / TEMP > 100.3'F Last administered on 03/21/20at 17:29; Start 03/16/20 at 23:00 Sodium Chloride 154 meq/Dextrose 1,038.5 ml @ 75 mls/hr [id number] IV Last administered on 03/17/20at 04:45; Start 03/17/20 at 04:45; Stop 03/17/20 at 13:10; Status DC Dextrose/Sodium Chloride 1,000 ml @ 150 mls/hr Q6H40M IV Last administered on 03/18/20at 02:00; Start 03/17/20 at 17:30; Stop 03/18/20 at 13:23; Status DC Atenolol (Tenormin) 25 mg DAILY PO ; Start 03/17/20 at 14:00; Stop 03/17/20 at 14:42; Status DC Lorazepam (Ativan) 1 mg PRN BID PRN PO ANXIETY / AGITATION Last administered on 03/23/20at 21:39; Start 03/17/20 at 14:00 Tizanidine HCl (Zanaflex) 4 mg PRN Q6HRS PRN PO MUSCLE PAIN; Start 03/17/20 at 14:00 Diclofenac Sodium (Voltaren) 75 mg BID PO ; Start 03/17/20 at 21:00; Stop 03/17/20 at 20:22; Status DC Non-Formulary Medication (Ondansetron Hcl ) 8 mg PRN BID PRN PO NAUSEA/VOMITING; Start 03/17/20 at 14:00; Stop 03/18/20 at 16:12; Status DC Oxycodone HCl (Roxicodone) 15 mg PRN Q6HRS PRN PO MODERATE TO SEVERE PAIN Last administered on 03/21/20at 08:32; Start 03/17/20 at 14:15 Metoprolol Tartrate (Lopressor Vial) 5 mg 1X ONCE IVP Last administered on 03/17/20at 19:51; Start 03/17/20 at 19:30; Stop 03/17/20 at 19:31; Status DC Metoprolol Tartrate (Lopressor) 25 mg 1X ONCE PO Last administered on 03/17/20at 21:12; Start 03/17/20 at 21:00; Stop 03/17/20 at 21:01; Status DC Fentanyl Citrate (Fentanyl 2ml Vial) 50 mcg PRN Q3HRS PRN IVP MOD-SEVERE PAIN Last administered on 03/21/20at 03:25; Start 03/17/20 at 20:30; Stop 03/21/20 at 10:54; Status DC Ketorolac Tromethamine (Toradol 15mg Vial) 15 mg 1X ONCE IVP Last administered on 03/17/20at 20:34; Start 03/17/20 at 20:15; Stop 03/17/20 at 20:22; Status DC Piperacillin Sod/ Tazobactam Sod (Zosyn Per Pharmacy) 1 each PRN DAILY PRN MC SEE COMMENTS; Start 03/17/20 at 20:30; Stop 03/18/20 at 13:08; Status DC Piperacillin Sod/ Tazobactam Sod 3.375 gm/Sodium Chloride 50 ml @ 100 mls/hr Q6H IV Last administered on 03/18/20at 08:37; Start 03/17/20 at 21:00; Stop 03/18/20 at 12:23; Status DC Albuterol/ Ipratropium (Duoneb) 3 ml RTQID NEB Last administered on 03/24/20at 07:24; Start 03/18/20 at 12:00 Methylprednisolone Sodium Succinate (SOLU-Medrol 125MG VIAL) 125 mg 1X ONCE IV Last administered on 03/18/20at 12:26; Start 03/18/20 at 13:00; Stop 03/18/20 at 13:01; Status DC Budesonide (Pulmicort) 0.5 mg RTBID NEB Last administered on 03/24/20at 07:24; Start 03/18/20 at 20:00 Meropenem 500 mg/ Sodium Chloride 50 ml @ 100 mls/hr Q6HRS IV Last administered on 03/20/20at 05:38; Start 03/18/20 at 13:30; Stop 03/20/20 at 07:33; Status DC Metoprolol Tartrate (Lopressor Vial) 5 mg 1X ONCE IVP Last administered on 03/18/20at 13:49; Start 03/18/20 at 13:15; Stop 03/18/20 at 13:16; Status DC Insulin Glargine (Lantus Syringe) 5 unit QHS SQ Last administered on 03/23/20at 22:01; Start 03/18/20 at 21:00 Furosemide (Lasix) 20 mg 1X ONCE IVP Last administered on 03/18/20at 14:23; Start 03/18/20 at 14:30; Stop 03/18/20 at 14:31; Status DC Pantoprazole Sodium (PROTONIX VIAL for IV PUSH) 40 mg BIDAC IVP Last administered on 03/24/20at 09:34; Start 03/18/20 at 16:30 Magnesium Sulfate 50 ml @ 25 mls/hr 1X ONCE IV Last administered on 03/18/20at 17:36; Start 03/18/20 at 16:00; Stop 03/18/20 at 17:59; Status DC Metoprolol Tartrate (Lopressor Vial) 5 mg PRN Q6HRS PRN IVP HYPERTENSION; Start 03/18/20 at 15:45 Albumin Human 500 ml @ 125 mls/hr PRN DAILY PRN IV SEE COMMENTS Last administered on 03/18/20at 16:07; Start 03/18/20 at 15:45 Norepinephrine Bitartrate 8 mg/ Dextrose 258 ml @ 17.705 mls/ hr CONT PRN IV PER PROTOCOL; Start 03/18/20 at 15:45 Ondansetron HCl (Zofran Odt) 4 mg PRN BID PRN PO NAUSEA/VOMITING; Start 03/18/20 at 16:15; Stop 03/18/20 at 16:12; Status DC Ondansetron HCl (Zofran Odt) 8 mg PRN BID PRN PO NAUSEA/VOMITING; Start 03/18/20 at 16:15 Ceftriaxone Sodium (Rocephin) 2 gm Q24H IVP Last administered on 03/24/20at 09:33; Start 03/20/20 at 08:00 Lactobacillus Rhamnosus (Culturelle) 1 cap BID PO Last administered on 03/24/20at 09:36; Start 03/20/20 at 21:00 Amino Acids/ Glycerin/ Electrolytes 1,000 ml @ 80 mls/hr [id number] IV Last administered on 03/21/20at 01:55; Start 03/20/20 at 14:00; Stop 03/21/20 at 12:25; Status DC Midazolam HCl (Versed) 2 mg STK-MED ONCE .ROUTE ; Start 03/21/20 at 09:39; Stop 03/21/20 at 09:39; Status DC Fentanyl Citrate (Fentanyl 2ml Vial) 100 mcg STK-MED ONCE .ROUTE ; Start 03/21/20 at 09:39; Stop 03/21/20 at 09:39; Status DC Lidocaine HCl (Buffered Lidocaine 1%) 3 ml STK-MED ONCE .ROUTE ; Start 03/21/20 at 09:41; Stop 03/21/20 at 09:41; Status DC Lidocaine HCl (Buffered Lidocaine 1%) 3 ml 1X ONCE IJ Last administered on 03/21/20at 10:00; Start 03/21/20 at 10:00; Stop 03/21/20 at 10:10; Status DC Midazolam HCl (Versed) 2 mg 1X ONCE IV Last administered on 03/21/20at 10:00; Start 03/21/20 at 10:00; Stop 03/21/20 at 10:10; Status DC Fentanyl Citrate (Fentanyl 2ml Vial) 100 mcg 1X ONCE IV Last administered on 03/21/20at 10:00; Start 03/21/20 at 10:00; Stop 03/21/20 at 10:10; Status DC Insulin Human Lispro (HumaLOG) 10 units 1X ONCE SQ ; Start 03/21/20 at 10:45; Stop 03/21/20 at 10:46; Status DC Naloxone HCl (Narcan) 0.4 mg PRN Q2MIN PRN IV SEE INSTRUCTIONS; Start 03/21/20 at 11:00; Stop 03/21/20 at 20:59; Status DC Hydromorphone HCl 30 ml @ 0 mls/hr CONT PRN PRN IV BREAKTHROUGH PAIN; Start 03/21/20 at 11:00; Status UNV Hydromorphone HCl 30 ml @ 0 mls/hr CONT PRN PRN IV BREAKTHROUGH PAIN Last administered on 03/21/20at 11:57; Start 03/21/20 at 11:00; Stop 03/21/20 at 19:01; Status DC Hydromorphone HCl (Dilaudid) 0.1 mg PRN Q2HR PRN IVP MODERATE TO SEVERE PAIN; Start 03/21/20 at 11:00 Diphenhydramine HCl (Benadryl) 25 mg PRN Q6HRS PRN IVP ITCHING; Start 03/21/20 at 11:00 Heparin Sodium (Porcine) (HEPARIN for NUC MED) 100 unit 1X ONCE IV ; Start 03/21/20 at 14:45; Stop 03/21/20 at 14:46; Status DC Acetaminophen (Tylenol) 650 mg 1X ONCE PO ; Start 03/21/20 at 17:15; Stop 03/21/20 at 17:16; Status DC Hydromorphone HCl 30 ml @ 0 mls/hr CONT PRN PRN IV BREAKTHROUGH PAIN; Start 03/21/20 at 19:00; Stop 03/22/20 at 12:00; Status DC Sodium Chloride 1,000 ml @ 75 mls/hr [id number] IV Last administered on 03/22/20at 23:02; Start 03/21/20 at 19:00; Stop 03/23/20 at 09:33; Status DC Hydromorphone HCl (Dilaudid) 0.5 mg PRN Q1HR PRN IVP PAIN Last administered on 03/22/20at 13:11; Start 03/21/20 at 21:00 Lorazepam (Ativan Inj) 1 mg PRN Q6HRS PRN IVP ANXIETY / AGITATION; Start 03/22/20 at 00:45; Stop 03/22/20 at 07:48; Status DC Magnesium Sulfate 50 ml @ 25 mls/hr 1X ONCE IV Last administered on 03/22/20at 13:26; Start 03/22/20 at 11:30; Stop 03/22/20 at 13:29; Status DC Magnesium Sulfate 50 ml @ 25 mls/hr 1X ONCE IV ; Start 03/22/20 at 11:45; Stop 03/22/20 at 13:44; Status UNV Naloxone HCl (Narcan) 0.4 mg PRN Q2MIN PRN IV SEE INSTRUCTIONS; Start 03/22/20 at 15:30 Sodium Chloride 1,000 ml @ 25 mls/hr Q24H IV ; Start 03/22/20 at 15:27 Hydromorphone HCl 30 ml @ 0 mls/hr CONT PRN PRN IV PER PROTOCOL Last administered on 03/23/20at 13:15; Start 03/22/20 at 15:45 Sodium Chloride 500 ml @ 33.3 mls/hr 1X ONCE IV ; Start 03/23/20 at 09:30; Stop 03/24/20 at 00:30; Status UNV Magnesium Sulfate 50 ml @ 25 mls/hr 1X ONCE IV Last administered on 03/23/20at 10:30; Start 03/23/20 at 10:30; Stop 03/23/20 at 12:29; Status DC Metronidazole (Flagyl) 500 mg Q8HRS PO ; Start 03/24/20 at 11:00 Active Scripts Active Miralax (Polyethylene Glycol 3350) 17 Gm Powd.pack 1 Pkt PO PRN DAILY PRN Reported Etodolac 400 Mg Tablet 1 Tab PO BID Ondansetron Hcl 8 Mg Tablet 8 Mg PO BID PRN Oxycodone Hcl Immed.release (Oxycodone Hcl) 15 Mg Tablet 15 Mg PO PRN Q6HRS PRN Montelukast Sodium Tablet (Montelukast Sodium) 10 Mg Tablet 10 Mg PO DAILY Basaglar Kwikpen U-100 (Insulin Glargine,Hum.rec.anlog) 100 Unit/1 Ml Insuln.pen 50 Unit SQ HS Prilosec Otc (Omeprazole Magnesium) 20 Mg Tablet.dr 1 Tab PO DAILY Novolog Flexpen (Insulin Aspart) 100 Unit/1 Ml Insuln.pen 1 Unit SQ 15-20 UNITS WITH MEALS TO MAX OF 80 UNITS DAILY Atorvastatin Calcium 20 Mg Tablet 1 Tab PO DAILY Januvia (Sitagliptin Phosphate) 50 Mg Tablet 1 Tab PO DAILY Tizanidine Hcl 4 Mg Tablet 1 Tab PO Q6HRS PRN can have 1-2 tabs Lidoderm (Lidocaine) 700 Mg Adh..patch 1 Patch TP DAILY PRN Ativan (Lorazepam) 1 Mg Tablet 1 Mg PO BID PRN Amlodipine Besylate 10 Mg Tablet 10 Mg PO DAILY Atenolol 25 Mg Tablet 1 Tab PO DAILY Voltaren (Diclofenac Sodium) 100 Gm Gel..gram. 1 Gm TP QID PRN Ventolin Hfa Inhaler (Albuterol Sulfate) 18 Gm Hfa.aer.ad 2 Puff IH PRN Q4-6HRS Cymbalta (Duloxetine Hcl) 60 Mg Capsule.dr 60 Mg PO BID Vitals/I & O Vital Sign - Last 24 Hours 03/23/20 03/23/20 03/23/20 03/23/20 11:25 11:28 12:16 12:25 Temp 98.4 98.4 98.4 98.4 98.4 98.4 Pulse 88 88 90 Resp 18 18 18 B/P (MAP) 109/65 109/65 (80) 110/70 Pulse Ox 96 94 O2 Delivery Room Air Room Air 03/23/20 03/23/20 03/23/20 03/23/20 13:15 13:25 15:00 15:45 Temp 98.0 97.9 98.0 97.9 Pulse 90 89 Resp 18 18 B/P (MAP) 120/69 115/68 (84) Pulse Ox 98 94 O2 Delivery Room Air Room Air Room Air 03/23/20 03/23/20 03/23/20 03/23/20 19:00 20:00 20:30 21:40 Temp 98.0 98.0 Pulse 118 118 Resp 20 B/P (MAP) 160/70 (100) 160/70 Pulse Ox 96 O2 Delivery Room Air Room Air Room Air 03/23/20 03/24/20 03/24/20 03/24/20 23:01 07:00 07:24 09:35 Temp 99.6 99.0 99.6 99.0 Pulse 107 107 107 Resp 20 20 B/P (MAP) 142/80 (100) 129/71 (90) 129/71 Pulse Ox 97 93 O2 Delivery Room Air Room Air Room Air 03/24/20 09:36 Pulse 107 B/P (MAP) 129/71 Intake and Output 03/23/20 03/23/20 03/24/20 15:00 23:00 07:00 Intake Total 240 ml Output Total 500 ml 300 ml 200 ml Balance -500 ml -60 ml -200 ml Justicifation of Admission Dx: Justifications for Admission: Justification of Admission Dx: Yes FLORY COELHO MD Mar 24, 2020 11:19
--- NOTE | 2020-03-24 11:32 | NUR ---
SW following. Discussed with RN, pt still on [facility]. [facility] does not have a bed until tomorrow (03/25/2020). SW will continue to follow.
--- NOTE | 2020-03-24 12:23 | PDOC ---
G I PROGRESS NOTE Subjective Remains a difficult historian. First doesn't, then does remember prior colonoscopy. Unclear any findings. Says still bloody stool; unable to discuss with staff. Objective Reviewed [facility] records at greater length. Physical Exam Lungs clear. RRR Abdomen unclearly tender. Bowel sounds present. Review of Relevant I have reviewed the following items clarisse (where applicable) has been applied. Labs Laboratory Tests Test 03/22/20 13:16 03/22/20 16:59 03/22/20 20:21 03/23/20 06:10 Glucose (Fingerstick) 166 mg/dL (70-99) 203 mg/dL (70-99) 162 mg/dL (70-99) White Blood Count 11.0 x10^3/uL (4.0-11.0) Red Blood Count 2.34 x10^6/uL (4.30-5.70) Hemoglobin 6.8 g/dL (13.0-17.5) Hematocrit 19.7 % (39.0-53.0) Mean Corpuscular Volume 84 fL (79-100) Mean Corpuscular Hemoglobin 29 pg (25-35) Mean Corpuscular Hemoglobin Concent 34 g/dL (31-37) Red Cell Distribution Width 15.6 % (11.5-14.5) Platelet Count 128 x10^3/uL (140-400) Neutrophils (%) (Auto) 88 % (31-73) Lymphocytes (%) (Auto) 6 % (24-48) Monocytes (%) (Auto) 5 % (0-9) Eosinophils (%) (Auto) 1 % (0-3) Basophils (%) (Auto) 0 % (0-3) Neutrophils # (Auto) 9.7 x10^3/uL (1.8-7.7) Lymphocytes # (Auto) 0.6 x10^3/uL (1.0-4.8) Monocytes # (Auto) 0.6 x10^3/uL (0.0-1.1) Eosinophils # (Auto) 0.1 x10^3/uL (0.0-0.7) Basophils # (Auto) 0.0 x10^3/uL (0.0-0.2) Sodium Level 124 mmol/L (136-145) Potassium Level 4.1 mmol/L (3.5-5.1) Chloride Level 93 mmol/L (98-107) Carbon Dioxide Level 26 mmol/L (21-32) Anion Gap 5 (6-14) Blood Urea Nitrogen 14 mg/dL (8-26) Creatinine 1.1 mg/dL (0.7-1.3) Estimated GFR (Cockcroft-Gault) 68.3 Glucose Level 177 mg/dL (70-99) Calcium Level 7.1 mg/dL (8.5-10.1) Magnesium Level 1.6 mg/dL (1.8-2.4) Test 03/23/20 08:19 03/23/20 08:30 03/23/20 11:22 03/23/20 16:26 Glucose (Fingerstick) 156 mg/dL (70-99) 154 mg/dL (70-99) 67 mg/dL (70-99) White Blood Count 12.5 x10^3/uL (4.0-11.0) Red Blood Count 2.56 x10^6/uL (4.30-5.70) Hemoglobin 7.4 g/dL (13.0-17.5) Hematocrit 21.5 % (39.0-53.0) Mean Corpuscular Volume 84 fL (79-100) Mean Corpuscular Hemoglobin 29 pg (25-35) Mean Corpuscular Hemoglobin Concent 34 g/dL (31-37) Red Cell Distribution Width 15.9 % (11.5-14.5) Platelet Count 167 x10^3/uL (140-400) Neutrophils (%) (Auto) 86 % (31-73) Lymphocytes (%) (Auto) 7 % (24-48) Monocytes (%) (Auto) 6 % (0-9) Eosinophils (%) (Auto) 1 % (0-3) Basophils (%) (Auto) 0 % (0-3) Neutrophils # (Auto) 10.7 x10^3/uL (1.8-7.7) Lymphocytes # (Auto) 0.9 x10^3/uL (1.0-4.8) Monocytes # (Auto) 0.7 x10^3/uL (0.0-1.1) Eosinophils # (Auto) 0.1 x10^3/uL (0.0-0.7) Basophils # (Auto) 0.0 x10^3/uL (0.0-0.2) Test 03/23/20 20:42 03/24/20 05:00 03/24/20 07:43 03/24/20 11:50 Glucose (Fingerstick) 132 mg/dL (70-99) 102 mg/dL (70-99) 108 mg/dL (70-99) White Blood Count 9.6 x10^3/uL (4.0-11.0) Red Blood Count 3.07 x10^6/uL (4.30-5.70) Hemoglobin 9.0 g/dL (13.0-17.5) Hematocrit 26.1 % (39.0-53.0) Mean Corpuscular Volume 85 fL (79-100) Mean Corpuscular Hemoglobin 30 pg (25-35) Mean Corpuscular Hemoglobin Concent 35 g/dL (31-37) Red Cell Distribution Width 15.6 % (11.5-14.5) Platelet Count 242 x10^3/uL (140-400) Neutrophils (%) (Auto) 84 % (31-73) Lymphocytes (%) (Auto) 8 % (24-48) Monocytes (%) (Auto) 6 % (0-9) Eosinophils (%) (Auto) 1 % (0-3) Basophils (%) (Auto) 0 % (0-3) Neutrophils # (Auto) 8.1 x10^3/uL (1.8-7.7) Lymphocytes # (Auto) 0.8 x10^3/uL (1.0-4.8) Monocytes # (Auto) 0.6 x10^3/uL (0.0-1.1) Eosinophils # (Auto) 0.1 x10^3/uL (0.0-0.7) Basophils # (Auto) 0.0 x10^3/uL (0.0-0.2) Sodium Level 124 mmol/L (136-145) Potassium Level 4.0 mmol/L (3.5-5.1) Chloride Level 90 mmol/L (98-107) Carbon Dioxide Level 27 mmol/L (21-32) Anion Gap 7 (6-14) Blood Urea Nitrogen 10 mg/dL (8-26) Creatinine 1.0 mg/dL (0.7-1.3) Estimated GFR (Cockcroft-Gault) 76.2 Glucose Level 88 mg/dL (70-99) Calcium Level 7.8 mg/dL (8.5-10.1) Magnesium Level 1.9 mg/dL (1.8-2.4) Laboratory Tests Test 03/23/20 16:26 03/23/20 20:42 03/24/20 05:00 03/24/20 07:43 Glucose (Fingerstick) 67 mg/dL (70-99) 132 mg/dL (70-99) 102 mg/dL (70-99) White Blood Count 9.6 x10^3/uL (4.0-11.0) Red Blood Count 3.07 x10^6/uL (4.30-5.70) Hemoglobin 9.0 g/dL (13.0-17.5) Hematocrit 26.1 % (39.0-53.0) Mean Corpuscular Volume 85 fL (79-100) Mean Corpuscular Hemoglobin 30 pg (25-35) Mean Corpuscular Hemoglobin Concent 35 g/dL (31-37) Red Cell Distribution Width 15.6 % (11.5-14.5) Platelet Count 242 x10^3/uL (140-400) Neutrophils (%) (Auto) 84 % (31-73) Lymphocytes (%) (Auto) 8 % (24-48) Monocytes (%) (Auto) 6 % (0-9) Eosinophils (%) (Auto) 1 % (0-3) Basophils (%) (Auto) 0 % (0-3) Neutrophils # (Auto) 8.1 x10^3/uL (1.8-7.7) Lymphocytes # (Auto) 0.8 x10^3/uL (1.0-4.8) Monocytes # (Auto) 0.6 x10^3/uL (0.0-1.1) Eosinophils # (Auto) 0.1 x10^3/uL (0.0-0.7) Basophils # (Auto) 0.0 x10^3/uL (0.0-0.2) Sodium Level 124 mmol/L (136-145) Potassium Level 4.0 mmol/L (3.5-5.1) Chloride Level 90 mmol/L (98-107) Carbon Dioxide Level 27 mmol/L (21-32) Anion Gap 7 (6-14) Blood Urea Nitrogen 10 mg/dL (8-26) Creatinine 1.0 mg/dL (0.7-1.3) Estimated GFR (Cockcroft-Gault) 76.2 Glucose Level 88 mg/dL (70-99) Calcium Level 7.8 mg/dL (8.5-10.1) Magnesium Level 1.9 mg/dL (1.8-2.4) Test 03/24/20 11:50 Glucose (Fingerstick) 108 mg/dL (70-99) Microbiology 03/21/20 AFB Specimen Processing Tissue - Final, Resulted 03/21/20 Acid Fast Bacilli Culture, Resulted Pending 03/21/20 Gram Stain - Final, Resulted 03/21/20 Fungal Culture, Resulted Pending 03/21/20 Fungal Culture Result 1, Resulted Pending 03/16/20 Blood Culture - Final, Complete NO GROWTH AFTER 5 DAYS Hemoglobin better today post transfusion. Vitals/I & O Vital Sign - Last 24 Hours 03/23/20 03/23/20 03/23/20 03/23/20 12:16 12:25 13:15 13:25 Temp 98.4 98.0 98.4 98.0 Pulse 90 90 Resp 18 18 B/P (MAP) 110/70 120/69 Pulse Ox 94 O2 Delivery Room Air Room Air 03/23/20 03/23/20 03/23/20 03/23/20 15:00 15:45 19:00 20:00 Temp 97.9 98.0 97.9 98.0 Pulse 89 118 Resp 18 20 B/P (MAP) 115/68 (84) 160/70 (100) Pulse Ox 98 94 96 O2 Delivery Room Air Room Air Room Air Room Air 03/23/20 03/23/20 03/23/20 03/24/20 20:30 21:40 23:01 07:00 Temp 99.6 99.0 99.6 99.0 Pulse 118 107 107 Resp 20 20 B/P (MAP) 160/70 142/80 (100) 129/71 (90) Pulse Ox 97 93 O2 Delivery Room Air Room Air Room Air 03/24/20 03/24/20 03/24/20 03/24/20 07:24 09:35 09:36 11:00 Temp 99.0 99.0 Pulse 107 107 99 Resp 18 B/P (MAP) 129/71 129/71 133/75 (94) Pulse Ox 97 O2 Delivery Room Air Room Air 03/24/20 11:43 O2 Delivery Room Air Intake and Output 03/23/20 03/23/20 03/24/20 15:00 23:00 07:00 Intake Total 240 ml Output Total 500 ml 300 ml 200 ml Balance -500 ml -60 ml -[address]'s of thoracic and lumbar spine. No mention of abnormalities in abdomen. Problem List Problems Medical Problems: (1) Acute kidney injury Status: Acute (2) Encephalopathy Status: Acute (3) Hypoglycemia Status: Acute (4) Hyponatremia Status: Acute (5) Seizure Status: Acute Assessment Remains encephalopathic. If (big if) we can believe normal colonoscopy in past, <10 years, low probability of colonic lesion which would alter therapy. Ischemic colitis seems best fit as cause of bleeding. Hepatic abcess post-jonelle with bile leak and interventions. Portal of entry seems scopes at [facility]. Plan of Care Note Continue antibiotics, drain, PPI, etc. Justicifation of Admission Dx: Justifications for Admission: Justification of Admission Dx: Yes Sepsis: Bacteremia Altered Mental Status: Altered Mental Status JAGDISH SEYMOUR MD Mar 24, 2020 12:23
--- NOTE | 2020-03-24 12:58 | PDOC ---
Renal-Progress Notes Subjective Notes Notes NO NEW COMPLAINTS, APPEARS CONFUSED History of Present Illness Hx of present illness STABLE Vitals Vitals Vital Signs Date Time Temp Pulse Resp B/P (MAP) Pulse Ox O2 Delivery O2 Flow Rate FiO2 03/24/20 11:43 Room Air 03/24/20 11:00 99.0 99 18 133/75 (94) 97 99.0 Weight Weight [ ] I.O. Intake and Output Intake and Output 03/24/20 07:00 Intake Total 240 ml Output Total 1000 ml Balance -760 ml Intake Oral 240 ml Output Urine Total 1000 ml # Voids 3 # Bowel Movements 1 Labs Labs Laboratory Tests Test 03/23/20 16:26 03/23/20 20:42 03/24/20 05:00 03/24/20 07:43 Glucose (Fingerstick) 67 mg/dL (70-99) 132 mg/dL (70-99) 102 mg/dL (70-99) White Blood Count 9.6 x10^3/uL (4.0-11.0) Red Blood Count 3.07 x10^6/uL (4.30-5.70) Hemoglobin 9.0 g/dL (13.0-17.5) Hematocrit 26.1 % (39.0-53.0) Mean Corpuscular Volume 85 fL (79-100) Mean Corpuscular Hemoglobin 30 pg (25-35) Mean Corpuscular Hemoglobin Concent 35 g/dL (31-37) Red Cell Distribution Width 15.6 % (11.5-14.5) Platelet Count 242 x10^3/uL (140-400) Neutrophils (%) (Auto) 84 % (31-73) Lymphocytes (%) (Auto) 8 % (24-48) Monocytes (%) (Auto) 6 % (0-9) Eosinophils (%) (Auto) 1 % (0-3) Basophils (%) (Auto) 0 % (0-3) Neutrophils # (Auto) 8.1 x10^3/uL (1.8-7.7) Lymphocytes # (Auto) 0.8 x10^3/uL (1.0-4.8) Monocytes # (Auto) 0.6 x10^3/uL (0.0-1.1) Eosinophils # (Auto) 0.1 x10^3/uL (0.0-0.7) Basophils # (Auto) 0.0 x10^3/uL (0.0-0.2) Sodium Level 124 mmol/L (136-145) Potassium Level 4.0 mmol/L (3.5-5.1) Chloride Level 90 mmol/L (98-107) Carbon Dioxide Level 27 mmol/L (21-32) Anion Gap 7 (6-14) Blood Urea Nitrogen 10 mg/dL (8-26) Creatinine 1.0 mg/dL (0.7-1.3) Estimated GFR (Cockcroft-Gault) 76.2 Glucose Level 88 mg/dL (70-99) Calcium Level 7.8 mg/dL (8.5-10.1) Magnesium Level 1.9 mg/dL (1.8-2.4) Test 03/24/20 11:50 Glucose (Fingerstick) 108 mg/dL (70-99) Micro Micro Microbiology 03/21/20 AFB Specimen Processing Tissue - Final, Resulted 03/21/20 Acid Fast Bacilli Culture, Resulted Pending 03/21/20 Gram Stain - Final, Resulted 03/21/20 Fungal Culture, Resulted Pending 03/21/20 Fungal Culture Result 1, Resulted Pending 03/16/20 Blood Culture - Final, Complete NO GROWTH AFTER 5 DAYS Review of Systems Constitutional: yes: other (CONFUSED) Physical Exam General Appearance: no apparent distress Skin: warm Respiratory: bilateral CTA Heart: S1S2, RRR Abdomen: soft, bowel sounds present Genitourinary: bladder flat Extremities: pulses present Neurology: alert, oriented, follow commands Musculoskeletal: Osteoarthritis, Other (cervical stenosis; chronic opioid use) Assessment Assessment IMP HYPONATREMIA-PROB SIADH DUE TO MEDS COLBY RESOLVED CKD STAGE 3 WITH CR AT BASELINE ANEMIA LOW MAG-CORRECTED HYPOGLYCEMIA MET ENCEPHALOPATHY LEUCOCYTOSIS MALNUTRITION LIVER ABSCESS-S/P DRAIN PLAN TO ICU FOR 3% SALINE OFF IVF'S HERNANDEZ OUT ENC PO REPEAT LABS IN AM WILL FOLLOW NADIR REILLY MD Mar 24, 2020 12:58
[2020-03-24] MEDS: metroNIDAZOLE 500 MG TABLET PO SCH ×2 (13:04→22:18)
[2020-03-24] MEDS ORDERED: SODIUM CHLORIDE 3 % 500 ML IV ONE ×2 (14:00→15:00)
--- NOTE | 2020-03-24 16:05 | NUR ---
Wound Care Wound care consult for left elbow wound. Pt has traumatic laceration to left posterior elbow with pale pink base and exposed bone. Pt also has DFUs to bilateral great toes that are calloused and hard but tender. Dressed all wounds with xeroform, will have Dr Woody see pt tomorrow for debridement. WC will follow up tomorrow.
--- NOTE | 2020-03-24 16:31 | NUR ---
Pt transferred to room [address] [place] [address] for 3% Saline infusion. PT arrived to room approx 1500. Assessment done and medication started as per protocol orders.
[2020-03-24] MEDS: HYDROmorphone 12mg/30ml PCA 30 ML IV PRN (21:35)
[2020-03-24] MEDS: ATORVASTATIN CALCIUM 20 MG TABLET PO SCH (22:17)
[2020-03-24] MEDS: INSULIN GLARGINE SYRINGE. SQ SCH (22:20)
[2020-03-25] VITALS (20 sets, daily range): BP systolic 102–136; BP diastolic 58–77
[2020-03-25 04:26] LABS: CALCIUM 7.4 mg/dL (8.5-10.1); GFR 76.2; MAGNESIUM 1.8 mg/dL (1.8-2.4); POTASSIUM 3.5 mmol/L (3.5-5.1)
[2020-03-25] MEDS: metroNIDAZOLE 500 MG TABLET PO SCH ×3 (05:50→21:40)
--- NOTE | 2020-03-25 07:25 | PDOC ---
Infectious Disease Note Subjective Subjective His abdominal discomfort left lower quadrant with drain but ok is much better No fevers/c/s/n/v/d/soa Mouth is dry and elbow is ok ROS ROS o/w neg Vital Sign Vital Signs Vital Signs Date Time Temp Pulse Resp B/P (MAP) Pulse Ox O2 Delivery O2 Flow Rate FiO2 03/25/20 06:00 97 16 136/73 (94) 100 Room Air 03/25/20 04:00 98.3 98.3 03/24/20 22:05 2.0 Physical Exam PHYSICAL EXAM GENERAL: Alert, awake, in bed , coop looks comfortable. HEENT: Normocephalic, atraumatic, anicteric. Oral mucosa dry. No thrush. NECK: Supple. Right IJ present - clean LUNGS: Decreased breath sounds at bases. No wheezing. No accessory muscle use. HEART: S1, S2 regular. No murmurs. ABDOMEN: Mildly distended. Bowel sounds present, nontender, no rebound, no guarding. JULIA with serous fluid. Pump clean in LLQ EXTREMITIES: No edema, no cyanosis. Left elbow wound is clean but now open more. NEUROLOGIC: Alert, awake PSYCHIATRIC: Cooperative. SKIN: no rash Labs Lab Laboratory Tests Test 03/24/20 07:43 03/24/20 11:50 03/24/20 18:01 03/24/20 21:00 Glucose (Fingerstick) 102 mg/dL (70-99) 108 mg/dL (70-99) 171 mg/dL (70-99) Sodium Level 123 mmol/L (136-145) Test 03/25/20 03:50 Sodium Level 126 mmol/L (136-145) Potassium Level 3.5 mmol/L (3.5-5.1) Chloride Level 93 mmol/L (98-107) Carbon Dioxide Level 27 mmol/L (21-32) Anion Gap 6 (6-14) Blood Urea Nitrogen 8 mg/dL (8-26) Creatinine 1.0 mg/dL (0.7-1.3) Estimated GFR (Cockcroft-Gault) 76.2 Glucose Level 162 mg/dL (70-99) Calcium Level 7.4 mg/dL (8.5-10.1) Magnesium Level 1.8 mg/dL (1.8-2.4) Micro Preliminary MANY GRAM NEGATIVE RODS on 03/22/20 at 1118 FINAL ID= [ESCHERICHIA COLI] MANY ANAEROBIC GRAM NEGATIVE RODS on 03/23/20 at 1159 FINAL ID= [BACTEROIDES THETAIOTAOMICRON G] ESCHERICHIA COLI BACTEROIDES THETAIOTAOMICRON G ANTIMICROBIAL SUSCEPTIBILITY Preliminary Comment NEG JUWAN 56 ESCHERICHIA COLI ANTIBIOTIC RESULT INTERPRETATION AMPICILLIN/SULBACTAM 10/04 I AMIKACIN <=16 S AMPICILLIN >16 R AMOXICILLIN/K CLAVULANATE <=8/4 S AZTREONAM <=4 S CEFTRIAXONE <=1 S CEFTAZIDIME <=1 S CEFOTAXIME <=2 S CONTINUED ON NEXT PAGE RUN DATE: 03/23/20 [facility] *LIVE* PAGE 2 RUN TIME: 1204 Specimen Inquiry SPEC: [id number] PATIENT: LASHAY MARQUEZ [id number] (Continued) Procedure Result -------- ---- ANTIMICROBIAL SUSCEPTIBILITY Preliminary (continued) CEFOXITIN <=8 S CIPROFLOXACIN <=0.25 S CEFEPIME <=2 S CEFUROXIME <=4 S CEFTAZIDIME/AVIBACTAM <=4 S ERTAPENEM <=0.5 S GENTAMICIN <=2 S LEVOFLOXACIN <=0.5 S MEROPENEM <=1 S PIPERACILLIN/TAZOBACTAM <=8 S TRIMETHOPRIM/SULFAMETHOXAZOLE >2/38 R TETRACYCLINE <=4 S TOBRAMYCIN <=[address] 03/23 Impression: 1. No destructive endplate changes or paravertebral inflammatory process to suggest discitis osteomyelitis although evaluation is limited on noncontrast CT. If persistent clinical concern, MRI can better evaluate. 2. Multilevel lumbar spondylosis with canal narrowing most prominent L2-L3 and L3-L4. 3. Multilevel neural foraminal narrowing most prominent L3-L4 and L4-L5. 4. Moderate right and small left pleural effusion with adjacent atelectasis, increased on the right. 5. Decreased bilateral pulmonary groundglass opacities. Microbiology 03/16/20 Blood Culture - Final, Complete NO GROWTH AFTER 5 DAYS Objective Assessment Transfered to ICU for hyponatremia 1. Severe Sepsis present on admission from gram-negative bacteremia.03/15. 03/16 - neg 2. E Coli bacteremia ? intrabdominal source s/p abscess drain 03/21 - Ecoli 3. Leukocytosis and lactic acidosis.Solumedrol - 03/18/PRBCs - better 4. Anemia, status post PRBC.03/21 and 03/23- bleed scan neg 03/21 5. Hyponatremia. 6. Encephalopathy - resolving, likely metabolic, CT head negative 7. History of renal cancer.S/P Nephrectomy 8. Abnormal LFTs ,Liver mass 9. History of ALLERGIES TO CLINDAMYCIN AND LEVAQUIN. 10. Recent placement of metallic stent 11. Thrombocytopenia - better? Sepsis vs other 12 COVID-19 neg 03/19 13. Back pain - CT without gross findings 14. Left elbow wound - open but clean - Plan Plan of Care Added Flagyl for Bacteroides 03/24 XRAY L elbow -may need Ortho eval Cont Ceftriaxone 03/20 F/u IR cults - F/U AM labs. Anemia per primary Electrolytes per primary Maintain aspiration precaution. Local wound care as directed Discussed with nursing staff DC meropenem 03/18 - 03/20 previous Zosyn 03/17- 03/18. Dose Rocephin 03/16 GRIS CASAS MD Mar 25, 2020 07:25
[2020-03-25] MEDS: INSULIN LISPRO 300 UNITS/3 ML VIAL. SQ SCH ×4 (07:30→21:00)
[2020-03-25] MEDS: IPRATRPIUM/ALBUTEROL 0.5/2.5MG 3 ML NEBU. NEB SCH ×4 (08:10→20:00)
[2020-03-25] MEDS: BUDESONIDE 0.5 MG/2 ML NEBU. NEB SCH ×2 (08:10→20:00)
--- NOTE | 2020-03-25 08:49 | RAD ---
PROCEDURE: ELBOW LEFT 2V STUDY DATE: 03/25/2020 CLINICAL INDICATION / HISTORY: Reason: open wound / Spl. Instructions: / History: . TECHNIQUE: Left Elbow 2 views COMPARISON: None FINDINGS: Two views of the left elbow demonstrate no evidence of fracture, subluxation, or dislocation. Soft tissues show laceration superficial to the olecranon process with no radiopaque foreign body present.. IMPRESSION: Left elbow laceration superficial to the olecranon process with no radiopaque foreign body or acute osseous abnormality. Electronically signed by: Shelly De La Rosa MD (03/25/2020 8:46 AM) [id number]
--- NOTE | 2020-03-25 09:20 | NUR ---
Wound care: Patient seen per wound care for bedside debridement with JOSETTE Leo of DFUs to left and right great toes. patient is much more alert and orientated today. verbal and written consent obtained. After debridement of left and right great toes, wounds redressed with hydrogel applied to Xeroform gauze, covered with gauze and tape. patient tolerated procedure and dressing changes well. The left elbow laceration wound cleansed and redressed with Iodoform packing and covered with foam dressing. Dressing change instructions left in room and spoke with RN regarding POC. Patient repositioned in bed and call light in reach. RN at bedside upon exiting room. Wound care will follow up with patient on Saturday for reassessment of bilateral great toes for possible debridement again on Saturday.
--- NOTE | 2020-03-25 09:28 | PDOC ---
PULMONARY PROGRESS NOTES Subjective Resting on room air transferred to ICU over night for hyponatermia Vitals Vital Signs Date Time Temp Pulse Resp B/P (MAP) Pulse Ox O2 Delivery O2 Flow Rate FiO2 03/25/20 08:10 99 Room Air 03/25/20 06:00 97 16 136/73 (94) 03/25/20 04:00 98.3 98.3 03/24/20 22:05 2.0 ROS: No Nausea, No Chest Pain, No Abdominal Pain, No Increase Cough General: Alert, Oriented X4, No acute distress Lungs: Clear Cardiovascular: S1, S2 Abdomen: Soft, Other (obese) Neuro Exam: Alert Extremities: Other (1+edema) Labs Laboratory Tests Test 03/23/20 11:22 03/23/20 16:26 03/23/20 20:42 03/24/20 05:00 Glucose (Fingerstick) 154 mg/dL (70-99) 67 mg/dL (70-99) 132 mg/dL (70-99) White Blood Count 9.6 x10^3/uL (4.0-11.0) Red Blood Count 3.07 x10^6/uL (4.30-5.70) Hemoglobin 9.0 g/dL (13.0-17.5) Hematocrit 26.1 % (39.0-53.0) Mean Corpuscular Volume 85 fL (79-100) Mean Corpuscular Hemoglobin 30 pg (25-35) Mean Corpuscular Hemoglobin Concent 35 g/dL (31-37) Red Cell Distribution Width 15.6 % (11.5-14.5) Platelet Count 242 x10^3/uL (140-400) Neutrophils (%) (Auto) 84 % (31-73) Lymphocytes (%) (Auto) 8 % (24-48) Monocytes (%) (Auto) 6 % (0-9) Eosinophils (%) (Auto) 1 % (0-3) Basophils (%) (Auto) 0 % (0-3) Neutrophils # (Auto) 8.1 x10^3/uL (1.8-7.7) Lymphocytes # (Auto) 0.8 x10^3/uL (1.0-4.8) Monocytes # (Auto) 0.6 x10^3/uL (0.0-1.1) Eosinophils # (Auto) 0.1 x10^3/uL (0.0-0.7) Basophils # (Auto) 0.0 x10^3/uL (0.0-0.2) Sodium Level 124 mmol/L (136-145) Potassium Level 4.0 mmol/L (3.5-5.1) Chloride Level 90 mmol/L (98-107) Carbon Dioxide Level 27 mmol/L (21-32) Anion Gap 7 (6-14) Blood Urea Nitrogen 10 mg/dL (8-26) Creatinine 1.0 mg/dL (0.7-1.3) Estimated GFR (Cockcroft-Gault) 76.2 Glucose Level 88 mg/dL (70-99) Calcium Level 7.8 mg/dL (8.5-10.1) Magnesium Level 1.9 mg/dL (1.8-2.4) Test 03/24/20 07:43 03/24/20 11:50 03/24/20 18:01 03/24/20 21:00 Glucose (Fingerstick) 102 mg/dL (70-99) 108 mg/dL (70-99) 171 mg/dL (70-99) Sodium Level 123 mmol/L (136-145) Test 03/25/20 03:50 03/25/20 08:11 Sodium Level 126 mmol/L (136-145) Potassium Level 3.5 mmol/L (3.5-5.1) Chloride Level 93 mmol/L (98-107) Carbon Dioxide Level 27 mmol/L (21-32) Anion Gap 6 (6-14) Blood Urea Nitrogen 8 mg/dL (8-26) Creatinine 1.0 mg/dL (0.7-1.3) Estimated GFR (Cockcroft-Gault) 76.2 Glucose Level 162 mg/dL (70-99) Calcium Level 7.4 mg/dL (8.5-10.1) Magnesium Level 1.8 mg/dL (1.8-2.4) Glucose (Fingerstick) 141 mg/dL (70-99) Laboratory Tests Test 03/24/20 11:50 03/24/20 18:01 03/24/20 21:00 03/25/20 03:50 Glucose (Fingerstick) 108 mg/dL (70-99) 171 mg/dL (70-99) Sodium Level 123 mmol/L (136-145) 126 mmol/L (136-145) Potassium Level 3.5 mmol/L (3.5-5.1) Chloride Level 93 mmol/L (98-107) Carbon Dioxide Level 27 mmol/L (21-32) Anion Gap 6 (6-14) Blood Urea Nitrogen 8 mg/dL (8-26) Creatinine 1.0 mg/dL (0.7-1.3) Estimated GFR (Cockcroft-Gault) 76.2 Glucose Level 162 mg/dL (70-99) Calcium Level 7.4 mg/dL (8.5-10.1) Magnesium Level 1.8 mg/dL (1.8-2.4) Test 03/25/20 08:11 Glucose (Fingerstick) 141 mg/dL (70-99) Medications Active Scripts Medications Dose Route/Sig Max Daily Dose Days Date Category Dose Instructions Etodolac 400 Mg Tablet 1 Tab PO BID 03/16/20 Reported Ondansetron Hcl 8 Mg Tablet 8 Mg PO BID PRN 03/16/20 Reported Oxycodone Hcl Immed.release (Oxycodone Hcl) 15 Mg Tablet 15 Mg PO PRN Q6HRS PRN 03/16/20 Reported Miralax (Polyethylene Glycol 3350) 17 Gm Powd.pack 1 Pkt PO PRN DAILY PRN 04/17/18 Rx Montelukast Sodium Tablet (Montelukast Sodium) 10 Mg Tablet 10 Mg PO DAILY 04/14/18 Reported Basaglar Kwikpen U-100 (Insulin Glargine,Hum.rec.anlog) 100 Unit/1 Ml Insuln.pen 50 Unit SQ HS 04/14/18 Reported Prilosec Otc (Omeprazole Magnesium) 20 Mg Tablet.dr 1 Tab PO DAILY 02/08/16 Reported Novolog Flexpen (Insulin Aspart) 100 Unit/1 Ml Insuln.pen 1 Unit SQ 11/17/15 Reported 15-20 UNITS WITH MEALS TO MAX OF 80 UNITS DAILY Atorvastatin Calcium 20 Mg Tablet 1 Tab PO DAILY 11/17/15 Reported Januvia (Sitagliptin Phosphate) 50 Mg Tablet 1 Tab PO DAILY 11/17/15 Reported Tizanidine Hcl 4 Mg Tablet 1 Tab PO Q6HRS PRN 11/17/15 Reported can have 1-2 tabs Lidoderm (Lidocaine) 700 Mg Adh..patch 1 Patch TP DAILY PRN 11/17/15 Reported Ativan (Lorazepam) 1 Mg Tablet 1 Mg PO BID PRN 11/17/15 Reported Amlodipine Besylate 10 Mg Tablet 10 Mg PO DAILY 11/17/15 Reported Atenolol 25 Mg Tablet 1 Tab PO DAILY 11/17/15 Reported Voltaren (Diclofenac Sodium) 100 Gm Gel..gram. 1 Gm TP QID PRN 11/17/15 Reported Ventolin Hfa Inhaler (Albuterol Sulfate) 18 Gm Hfa.aer.ad 2 Puff IH PRN Q4-6HRS 11/17/15 Reported Cymbalta (Duloxetine Hcl) 60 Mg Capsule.dr 60 Mg PO BID 11/17/15 Reported Impression . 1. Acute respiratory failure with audible upper airway wheezing 03/19 resolved . Could be related to reactive airway disease. The patient has no known asthma. Possibility of vocal cord dysfunction secondary to anxiety would also be a consideration. No recurrence and resolved 2. Anemia, status post transfusion.on going GI bleed-- improved 3. Hypoglycemic encephalopathy, present on admission , improved 4. Chronic kidney disease. 5. Abnormal ct chest with basal atelectasis/ vs pneumonia 6. Liver abscess. s/p drain 7. E Coli bacteremia likely intrabdominal source s/p abscess drain 03/21 - Ecoli 8. Abnormal D-Dimer , could be related to Liver abscess . on RA. no suspicion for PE, Neg dopplers Plan . 1. from pulmonary standpoint stable 2. off Nasal canula, off BIPAP-- remains on room air 3. continue DuoNebs. 4. Pulmicort nebulizer. 5. Follow GI recs 6. Continue antibiotics per ID 7. s/p liver aspiration. 8. dopplers lower extremity neg D/W RN and RT RAHEEM GAMA MD Mar 25, 2020 09:28
[2020-03-25] MEDS: cefTRIAXone IV Push 2 GM VIAL. IVP SCH (09:42)
[2020-03-25] MEDS: DULoxetine HCL 30 MG CAPSULE.DR PO SCH ×2 (09:43→21:40)
[2020-03-25] MEDS: METOPROLOL TART IMMED RELEASE 25 MG TABLET. PO SCH ×2 (09:43→21:40)
[2020-03-25] MEDS: PANTOPRAZOLE IV PUSH 40 MG VIAL. IVP SCH ×2 (09:43→16:28)
[2020-03-25] MEDS: LACTOBACILLUS RHAMNOSUS GG 1 CAPSULE. PO SCH ×2 (09:44→21:40)
[2020-03-25] MEDS: LINAGLIPTIN 5 MG TABLET PO SCH (09:44)
[2020-03-25] MEDS: amLODIPine BESYLATE 10 MG TABLET PO SCH (09:44)
[2020-03-25] MEDS: MONTELUKAST SODIUM 10 MG TABLET. PO SCH (09:44)
[2020-03-25] MEDS: IV NORMAL SALINE 1000ML BAG 1,000 ML IV SCH (09:45)
[2020-03-25] MEDS ORDERED: LIDOCAINE WITH 8.4% SOD BICARB 3 ML DISP.SYRIN. INJ ONE (10:45)
--- NOTE | 2020-03-25 11:00 | PDOC ---
Renal-Progress Notes Subjective Notes Notes NO NEW COMPLAINTS History of Present Illness Hx of present illness STABLE Vitals Vitals Vital Signs Date Time Temp Pulse Resp B/P (MAP) Pulse Ox O2 Delivery O2 Flow Rate FiO2 03/25/20 09:44 97 117/58 03/25/20 08:10 99 Room Air 03/25/20 07:00 98.2 16 98.2 03/24/20 22:05 2.0 Weight Weight [ ] I.O. Intake and Output Intake and Output 03/25/20 07:00 Intake Total 200 ml Output Total 1455 ml Balance -1255 ml Intake Oral 200 ml Output Urine Total 1405 ml Drainage Total 50 ml Labs Labs Laboratory Tests Test 03/24/20 11:50 03/24/20 18:01 03/24/20 21:00 03/25/20 03:50 Glucose (Fingerstick) 108 mg/dL (70-99) 171 mg/dL (70-99) Sodium Level 123 mmol/L (136-145) 126 mmol/L (136-145) Potassium Level 3.5 mmol/L (3.5-5.1) Chloride Level 93 mmol/L (98-107) Carbon Dioxide Level 27 mmol/L (21-32) Anion Gap 6 (6-14) Blood Urea Nitrogen 8 mg/dL (8-26) Creatinine 1.0 mg/dL (0.7-1.3) Estimated GFR (Cockcroft-Gault) 76.2 Glucose Level 162 mg/dL (70-99) Calcium Level 7.4 mg/dL (8.5-10.1) Magnesium Level 1.8 mg/dL (1.8-2.4) Test 03/25/20 08:11 Glucose (Fingerstick) 141 mg/dL (70-99) Micro Micro Microbiology 03/21/20 AFB Specimen Processing Tissue - Final, Resulted 03/21/20 Acid Fast Bacilli Culture, Resulted Pending 03/21/20 Gram Stain - Final, Resulted 03/21/20 Fungal Culture, Resulted Pending 03/21/20 Fungal Culture Result 1, Resulted Pending 03/16/20 Blood Culture - Final, Complete NO GROWTH AFTER 5 DAYS Review of Systems Constitutional: yes: other (CONFUSED) Physical Exam General Appearance: no apparent distress Skin: warm Respiratory: bilateral CTA Heart: S1S2, RRR Abdomen: soft, bowel sounds present Genitourinary: bladder flat Extremities: pulses present Neurology: alert, oriented, follow commands Musculoskeletal: Osteoarthritis, Other (cervical stenosis; chronic opioid use) Assessment Assessment IMP HYPONATREMIA-PROB SIADH DUE TO MEDS-NA UP TO 126 COLBY RESOLVED CKD STAGE 3 WITH CR AT BASELINE ANEMIA LOW MAG-CORRECTED HYPOGLYCEMIA MET ENCEPHALOPATHY LEUCOCYTOSIS MALNUTRITION LIVER ABSCESS-S/P DRAIN PLAN TO ICU FOR 3% SALINE OFF IVF'S HERNANDEZ OUT ENC PO REPEAT LABS IN AM WILL FOLLOW NADIR REILLY MD Mar 25, 2020 11:00
--- NOTE | 2020-03-25 11:16 | PDOC2 ---
Chief Complaint: Chief Complaint: Left elbow laceration, right and left great toe DFUs Vital Signs: Vital Signs: Vital Signs Date Time Temp Pulse Resp B/P (MAP) Pulse Ox O2 Delivery O2 Flow Rate FiO2 03/24/20 07:00 99.0 107 20 129/71 (90) 93 Room Air 99.0 03/24/20 08:00 2.0 Vital Signs Date Time Temp Pulse Resp B/P (MAP) Pulse Ox O2 Delivery O2 Flow Rate FiO2 03/25/20 09:44 97 117/58 03/25/20 08:10 99 Room Air 03/25/20 07:00 98.2 16 98.2 03/24/20 22:05 2.0 Allergies: Allergies: Allergies Coded Allergies Type Severity Reaction Last Updated Verified clindamycin Allergy Intermediate 02/17/16 Yes levofloxacin Allergy Intermediate 01/06/17 Yes morphine Allergy Intermediate 02/17/16 Yes prednisone Allergy Intermediate 01/06/17 Yes pramipexole Adverse Reaction Intermediate 02/17/16 Yes Medications: Home Meds Active Scripts Polyethylene Glycol 3350 (MIRALAX) 17 Gm Powd.pack, 1 PKT PO PRN DAILY PRN for CONSTIPATION, #30 PKT Prov:FLORY COELHO MD 04/17/18 Reported Medications Etodolac (ETODOLAC) 400 Mg Tablet, 1 TAB PO BID for pain, #60 TAB 03/16/20 Ondansetron Hcl (ONDANSETRON HCL) 8 Mg Tablet, 8 MG PO BID PRN for NAUSEA/VOMITING, TAB 03/16/20 Oxycodone Hcl (OXYCODONE HCL IMMED.RELEASE) 15 Mg Tablet, 15 MG PO PRN Q6HRS PRN for PAIN, TAB 0 Refills 03/16/20 Montelukast Sodium (MONTELUKAST SODIUM TABLET ) 10 Mg Tablet, 10 MG PO DAILY 04/14/18 Insulin Glargine,Hum.rec.anlog (Basaglar Kwikpen U-100) 100 Unit/1 Ml Insuln.pen, 50 UNIT SQ HS, EACH 04/14/18 Omeprazole Magnesium (PRILOSEC OTC) 20 Mg Tablet.dr, 1 TAB PO DAILY, #30 TAB 3 Refills 02/08/16 Insulin Aspart (NOVOLOG FLEXPEN) 100 Unit/1 Ml Insuln.pen, 1 UNIT SQ, SYR 15-20 UNITS WITH MEALS TO MAX OF 80 UNITS DAILY 11/17/15 Atorvastatin Calcium (ATORVASTATIN CALCIUM) 20 Mg Tablet, 1 TAB PO DAILY, #30 TAB 5 Refills 11/17/15 Sitagliptin Phosphate (JANUVIA) 50 Mg Tablet, 1 TAB PO DAILY, #30 TAB 5 Refills 11/17/15 Tizanidine Hcl (TIZANIDINE HCL) 4 Mg Tablet, 1 TAB PO Q6HRS PRN for PAIN, #60 TAB can have 1-2 tabs 11/17/15 Lidocaine (LIDODERM) 700 Mg Adh..patch, 1 PATCH TP DAILY PRN for PA, PATCH 11/17/15 Lorazepam (ATIVAN) 1 Mg Tablet, 1 MG PO BID PRN for ANXIETY / AGITATION, TAB 11/17/15 Amlodipine Besylate (AMLODIPINE BESYLATE) 10 Mg Tablet, 10 MG PO DAILY, TAB 11/17/15 Atenolol (ATENOLOL) 25 Mg Tablet, 1 TAB PO DAILY, #30 TAB 5 Refills 11/17/15 Diclofenac Sodium (VOLTAREN) 100 Gm Gel..gram., 1 GM TP QID PRN for PAIN, #100 GM 2 Refills 11/17/15 Albuterol Sulfate (VENTOLIN HFA INHALER) 18 Gm Hfa.aer.ad, 2 PUFF IH PRN Q4- 6HRS, #1 INHALER 11/17/15 Duloxetine Hcl (CYMBALTA) 60 Mg Capsule.dr, 60 MG PO BID, #90 CAP 3 Refills 11/17/15 PCP: PCP: Dr Carmen Pain: Pain Location: Elbow (with palpation) Date of Onset Pt fell in-house causing left elbow laceration. Nursing cleansed wound and applied steri-strips. Pt states DFUs to bilat great toes have been present for 2+ years. Pt states he has seen podiatry on a regular basis for callus and wound debridement. Pt denies hx of infection of the wounds. Pt states prior to admission his FSBS were well controlled. Pt currently in ICU for hyponatremia, encephalitis. Liver abcess, s/p drain. E Coli bactermia. PMH Cardiovascular: HTN, Hyperlipidemia Pulmonary: COPD CENTRAL NERVOUS SYSTEM: Carpal Tunnel Syndrome GI: GERD, Peptic Ulcer disease (recently noted prepyloric ulcers in 03/10/2020 via EGD) Heme/Onc: Cancer (renal) Hepatobiliary: Other (liver hemangioma with biopsy) Psych: Anxiety Musculoskeletal: Osteoarthritis, Other (cervical stenosis; chronic opioid use) Renal/: Chronic renal insuff Endocrine: Diabetes (2) Dermatology: Other (foot ulcer) Surgical History Hernia Repair, Other (elbow surgery; left achilles repair; left nephrectomy, septoplasty; back surgery) General: YES: Appetite (Pt states he has a poor appetite, but has been on clear-liquids that are not appealing to him); No: Chills, Fatigue Respiratory: No: Cough, Orthopnea, Shortness of breath Cardiovascular: No Chest Pain, No Orthopnea Gastrointestinal: Yes Diarrhea; No Nausea, No Vomiting, No Constipation Genitourinary: No Dysuria, No Frequency Neurological: Yes Behavorial Changes, Yes Confusion, Yes Weakness; No Headaches Psychological: YES: Depression; No: Anxiety, Irritablity Physical Exam Pt awake and alert, 59 yo male in NAD. Pt asleep, easily aroused. Pleasant in conversation and is a good historian this am. Resp even and unlabored. Abdomen soft, nondistended, and nontender. Drain in place. Left elbow with open laceration with fat exposed. Bone is palpable. X-ray negative for fx. Bilat great toes with open wounds with significant callus formation surrounding. Prior to debridement, right toe wound measures 0.3x2.1x0.2cm. Left toe wound measures 0.3x1.8x0.2cm. Following written consent and application of topical lidocaine, nonviable tissue with callus and minimal viable tissue removed using sterile currette. Minimal bleeding controlled with pressure. Pt c/o mild painful symptoms with debridement of the right toe, resolved with completion of procedure. Following debridement right toe wound measures 2.3x2.3x0.2cm. Wound bed pink and moist. Edges attached and not rolling. Mild surrounding hardened callus present. Left great toe, post debridement, measures 0.3x1.8x0.2cm. Wound bed pink and moist. Edges attached and not rolling. Surrounding tissue without erythema or edema. No active drainage. A/P Left elbow laceration - Cleanse and pat dry. Apply Iodoform sterile packing, loosely and cover with foam adhesive. Change tomorrow am d/t bleeding then every 3 days thereafter. Bilat great toe DFUs - Wounds appear noninfectious at this time. - Debrided at bedside today. Right great toe may require serial debridements d/t excessive callus formation. Will reevaluate on 03/27. - Cleanse and pat dry. Apply Xeroform and cover with bordered guaze. Change every 2 days or prn if dressing loose or saturated. KOJO TREJO MUCKING MACHINE OPERATOR Mar 25, 2020 11:16
--- NOTE | 2020-03-25 11:56 | NUR ---
SS following up with discharge planning. SS reviewed pt chart and discussed with pt RN. Pt is currently on room air. Pt on IV Flagyl and IV Rocephin. Pt has drain. Wound care following for diabetic ulcers on feet and wound on left arm. Pt had debridement today. Pt accepted at [facility], ; fax [phone]. SS phoned and faxed clinical updates to [facility]. SS will continue to follow for discharge planning.
[2020-03-25] MEDS ORDERED: SODIUM CHLORIDE 3 % 500 ML IV ONE (12:45)
[2020-03-25] MEDS: ASCORBIC ACID 500 MG TABLET PO SCH (12:59)
[2020-03-25] MEDS: MULTIVITAMIN with MINERAL TABLET. PO SCH (12:59)
[2020-03-25] MEDS: SODIUM CHLORIDE 3 % 500 ML IV PRN (13:25)
--- NOTE | 2020-03-25 13:49 | PDOC ---
G I PROGRESS NOTE Subjective Seems brighter today. Denies any stool. No pain save from addison and back. Objective Others' notes reviewed. Physical Exam Lungs clear. RRR Abdomen soft, not tender nor distended. Review of Relevant I have reviewed the following items clarisse (where applicable) has been applied. Labs Laboratory Tests Test 03/23/20 16:26 03/23/20 20:42 03/24/20 05:00 03/24/20 07:43 Glucose (Fingerstick) 67 mg/dL (70-99) 132 mg/dL (70-99) 102 mg/dL (70-99) White Blood Count 9.6 x10^3/uL (4.0-11.0) Red Blood Count 3.07 x10^6/uL (4.30-5.70) Hemoglobin 9.0 g/dL (13.0-17.5) Hematocrit 26.1 % (39.0-53.0) Mean Corpuscular Volume 85 fL (79-100) Mean Corpuscular Hemoglobin 30 pg (25-35) Mean Corpuscular Hemoglobin Concent 35 g/dL (31-37) Red Cell Distribution Width 15.6 % (11.5-14.5) Platelet Count 242 x10^3/uL (140-400) Neutrophils (%) (Auto) 84 % (31-73) Lymphocytes (%) (Auto) 8 % (24-48) Monocytes (%) (Auto) 6 % (0-9) Eosinophils (%) (Auto) 1 % (0-3) Basophils (%) (Auto) 0 % (0-3) Neutrophils # (Auto) 8.1 x10^3/uL (1.8-7.7) Lymphocytes # (Auto) 0.8 x10^3/uL (1.0-4.8) Monocytes # (Auto) 0.6 x10^3/uL (0.0-1.1) Eosinophils # (Auto) 0.1 x10^3/uL (0.0-0.7) Basophils # (Auto) 0.0 x10^3/uL (0.0-0.2) Sodium Level 124 mmol/L (136-145) Potassium Level 4.0 mmol/L (3.5-5.1) Chloride Level 90 mmol/L (98-107) Carbon Dioxide Level 27 mmol/L (21-32) Anion Gap 7 (6-14) Blood Urea Nitrogen 10 mg/dL (8-26) Creatinine 1.0 mg/dL (0.7-1.3) Estimated GFR (Cockcroft-Gault) 76.2 Glucose Level 88 mg/dL (70-99) Calcium Level 7.8 mg/dL (8.5-10.1) Magnesium Level 1.9 mg/dL (1.8-2.4) Test 03/24/20 11:50 03/24/20 18:01 03/24/20 21:00 03/25/20 03:50 Glucose (Fingerstick) 108 mg/dL (70-99) 171 mg/dL (70-99) Sodium Level 123 mmol/L (136-145) 126 mmol/L (136-145) Potassium Level 3.5 mmol/L (3.5-5.1) Chloride Level 93 mmol/L (98-107) Carbon Dioxide Level 27 mmol/L (21-32) Anion Gap 6 (6-14) Blood Urea Nitrogen 8 mg/dL (8-26) Creatinine 1.0 mg/dL (0.7-1.3) Estimated GFR (Cockcroft-Gault) 76.2 Glucose Level 162 mg/dL (70-99) Calcium Level 7.4 mg/dL (8.5-10.1) Magnesium Level 1.8 mg/dL (1.8-2.4) Test 03/25/20 08:11 03/25/20 10:50 03/25/20 11:30 Glucose (Fingerstick) 141 mg/dL (70-99) 168 mg/dL (70-99) Sodium Level 125 mmol/L (136-145) Laboratory Tests Test 03/24/20 18:01 03/24/20 21:00 03/25/20 03:50 03/25/20 08:11 Glucose (Fingerstick) 171 mg/dL (70-99) 141 mg/dL (70-99) Sodium Level 123 mmol/L (136-145) 126 mmol/L (136-145) Potassium Level 3.5 mmol/L (3.5-5.1) Chloride Level 93 mmol/L (98-107) Carbon Dioxide Level 27 mmol/L (21-32) Anion Gap 6 (6-14) Blood Urea Nitrogen 8 mg/dL (8-26) Creatinine 1.0 mg/dL (0.7-1.3) Estimated GFR (Cockcroft-Gault) 76.2 Glucose Level 162 mg/dL (70-99) Calcium Level 7.4 mg/dL (8.5-10.1) Magnesium Level 1.8 mg/dL (1.8-2.4) Test 03/25/20 10:50 03/25/20 11:30 Sodium Level 125 mmol/L (136-145) Glucose (Fingerstick) 168 mg/dL (70-99) Microbiology 03/21/20 AFB Specimen Processing Tissue - Final, Resulted 03/21/20 Acid Fast Bacilli Culture, Resulted Pending 03/21/20 Gram Stain - Final, Resulted 03/21/20 Fungal Culture, Resulted Pending 03/21/20 Fungal Culture Result 1, Resulted Pending 03/16/20 Blood Culture - Final, Complete NO GROWTH AFTER 5 DAYS Vitals/I & O Vital Sign - Last 24 Hours 03/24/20 03/24/20 03/24/20 03/24/20 14:44 15:00 15:00 16:00 Temp 98.2 97.3 98.2 97.3 Pulse 119 116 110 Resp 12 21 24 B/P (MAP) 118/73 (88) 104/73 (83) 107/59 (75) Pulse Ox 96 100 100 O2 Delivery Room Air Room Air Room Air Room Air 03/24/20 03/24/20 03/24/20 03/24/20 17:00 18:00 19:00 20:00 Pulse 108 116 116 Resp 19 20 23 B/P (MAP) 118/70 (86) 117/68 (84) 108/68 (81) Pulse Ox 100 100 100 O2 Delivery Room Air Room Air Room Air Room Air 03/24/20 03/24/20 03/24/20 03/24/20 20:00 20:45 21:00 21:35 Temp 97.6 97.6 Pulse 106 110 Resp 20 23 17 B/P (MAP) 109/58 (75) 119/63 (81) Pulse Ox 100 98 100 100 O2 Delivery Room Air Room Air Room Air Room Air 03/24/20 03/24/20 03/24/20 03/24/20 22:00 22:05 22:18 23:00 Pulse 108 108 93 Resp 21 16 17 B/P (MAP) 122/64 (83) 122/64 97/54 (68) Pulse Ox 100 100 97 O2 Delivery Room Air Room Air Room Air O2 Flow Rate 2.0 03/25/20 03/25/20 03/25/20 03/25/20 00:00 00:00 01:00 02:00 Temp 98.3 98.3 Pulse 86 87 90 Resp 17 11 22 B/P (MAP) 103/62 (76) 102/59 (73) 121/68 (85) Pulse Ox 100 97 97 O2 Delivery Room Air Room Air Room Air Room Air 03/25/20 03/25/20 03/25/20 03/25/20 03:00 03:58 04:00 05:00 Temp 98.3 98.3 Pulse 92 89 94 Resp 16 18 16 B/P (MAP) 116/66 (83) 120/66 (84) 110/61 (77) Pulse Ox 100 100 100 O2 Delivery Room Air Room Air Room Air Room Air 03/25/20 03/25/20 03/25/20 03/25/20 06:00 07:00 08:00 08:10 Temp 98.2 98.2 Pulse 97 90 Resp 16 16 B/P (MAP) 136/73 (94) 116/61 (79) Pulse Ox 100 100 99 O2 Delivery Room Air Room Air Room Air Room Air 03/25/20 03/25/20 03/25/20 03/25/20 09:00 09:43 09:44 10:10 Temp 98.2 98.2 Pulse 94 97 97 88 Resp 16 B/P (MAP) 117/58 (77) 117/58 117/58 105/65 (78) Pulse Ox 100 100 O2 Delivery Room Air Room Air 03/25/20 03/25/20 03/25/20 03/25/20 11:00 11:55 12:20 12:20 Temp 98.3 98.3 Pulse 98 80 Resp 16 16 B/P (MAP) 116/69 (85) 110/63 (79) Pulse Ox 100 100 100 O2 Delivery Room Air Room Air Room Air Room Air Intake and Output 03/24/20 03/24/20 03/25/20 15:00 23:00 07:00 Intake Total 200 ml Output Total 1025 ml 430 ml Balance 200 ml -1025 ml -430 ml Problem List Problems Medical Problems: (1) Acute kidney injury Status: Acute (2) Encephalopathy Status: Acute (3) Hypoglycemia Status: Acute (4) Hyponatremia Status: Acute (5) Seizure Status: Acute Assessment Hepatic abcess, post-percutaneous drain. Rectal bleeding seems to have ceased. Plan of Care Note Will advance diet. Continue other. Watch for more bleeding. Justicifation of Admission Dx: Justifications for Admission: Justification of Admission Dx: Yes Sepsis: Bacteremia Altered Mental Status: Altered Mental Status JAGDISH SEYMOUR MD Mar 25, 2020 13:49
--- NOTE | 2020-03-25 14:10 | PDOC ---
[facility] [facility] PROGRESS NOTE Chief Complaint Chief Complaint GI BLEED - stable Hyponatremiacontinue with 3% saline Hepatic mass s/p IR biliary drainpending cultures History of renal cell carcinoma Recent placement of percutaneous biliary drain for hepatic abscess Severe sepsis Gram negative bacteremiacontinue ceftriaxone acute METABOLIC ENCEPHALOPATHY - improved COPD - will cont home nebs Normocytic anemia with GI bleed PUD: prepyloric ulcers via EGD 03/10/2020 Biliary stent and mild pneumobilia seen previously. CKD STAGE 3 with Cr 1.6-2.0 // baseline Liver biopsy 2009 from LEFT lobe of liver during w/u of renal cancer; cavernous hemangioma. 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 She notes he has had a progressive decline over the last month or so. Patient is encephalopathic and unable to answer questions. Patient given glucagon prior to arrival and blood sugar improved from 55-83. notes issues w/ confusion since cholecystectomy at on 12/25/19. notes an IR drain was placed after a readmission for worsening and remained in place for 3 weeks and was removed at the end of January, then he returned for common bile duct stent placement last week. She notes that she was told that he had a "small spot" on his liver at [facility] and that his sodium was "better" at 129 last week. She also notes he has lost 46# in the past 2 months and she is not aware of any diagnosis for him. Patient is not even speaking, he is moaning and writhing in bed. Has been tested 3x for covid 19 and negative with last check over a week ago. CXR with pulmonary vasculare congestion and CT head negative for acute process. Labs significant for WBC 17.2, Hb 8.2, platelets 244, INR 1.3, Na 123, K 4.7, BUN 49, Cr 3.4, Albumin 1.7, Glucose 97, Mg 1.7, AST 84, ALT 66, Alk phos 228, Bili 1.2. BNP [id number] Admitted to ICU for further care. 03/25/2020 No acute events overnight. Patient's mental status is stable. Patient's chart, labs, images were reviewed and discussed with RN 03/23, need try to transfer to [facility] soon, hgb drop again today, 1 u PRBC ordered, GI and surg following discussed abx with ID, following he is weak, not eating much, DNR reviewed, 03/24, hgb better ID changing abx cultures pending PULM following, needs LTAC likely consider tomorrow Vitals/I&O Vitals/I&O: Vital Signs Date Time Temp Pulse Resp B/P (MAP) Pulse Ox O2 Delivery O2 Flow Rate FiO2 03/25/20 12:20 80 16 110/63 (79) 100 Room Air 03/25/20 11:00 98.3 98.3 03/24/20 22:05 2.0 I & O 03/24/20 03/24/20 03/25/20 15:00 23:00 07:00 Intake Total 200 ml Output Total 1025 ml 430 ml Balance 200 ml -1025 ml -430 ml Physical Exam Physical Exam: GENERAL: Alert, awake, in bed , coop looks comfortable. HEENT: Normocephalic, atraumatic, anicteric. Oral mucosa dry. No thrush. NECK: Supple. Right IJ present - clean LUNGS: Decreased breath sounds at bases. No wheezing. No accessory muscle use. HEART: S1, S2 regular. No murmurs. ABDOMEN: Mildly distended. Bowel sounds present, nontender, no rebound, no guarding. JULIA with serous fluid. Pump clean in LLQ EXTREMITIES: No edema, no cyanosis. Left elbow wound is clean but now open more. NEUROLOGIC: Alert, awake PSYCHIATRIC: Cooperative. SKIN: no rash General: Alert, Oriented X3, Cooperative, mild distress Heart: Regular rate Lungs: Clear Abdomen: Normal bowel sounds, Soft, No tenderness, Other (JULIA drain in place with serosanguineous drainage) Extremities: No edema Skin: No significant lesion Labs Labs: Laboratory Tests Test 03/24/20 18:01 03/24/20 21:00 03/25/20 03:50 03/25/20 08:11 Glucose (Fingerstick) 171 mg/dL (70-99) 141 mg/dL (70-99) Sodium Level 123 mmol/L (136-145) 126 mmol/L (136-145) Potassium Level 3.5 mmol/L (3.5-5.1) Chloride Level 93 mmol/L (98-107) Carbon Dioxide Level 27 mmol/L (21-32) Anion Gap 6 (6-14) Blood Urea Nitrogen 8 mg/dL (8-26) Creatinine 1.0 mg/dL (0.7-1.3) Estimated GFR (Cockcroft-Gault) 76.2 Glucose Level 162 mg/dL (70-99) Calcium Level 7.4 mg/dL (8.5-10.1) Magnesium Level 1.8 mg/dL (1.8-2.4) Test 03/25/20 10:50 03/25/20 11:30 Sodium Level 125 mmol/L (136-145) Glucose (Fingerstick) 168 mg/dL (70-99) Assessment and Plan Assessmemt and Plan Problems Medical Problems: (1) Acute kidney injury Status: Acute (2) Encephalopathy Status: Acute (3) Hypoglycemia Status: Acute (4) Hyponatremia Status: Acute (5) Seizure Status: Acute Comment Review of Relevant I have reviewed the following items clarisse (where applicable) has been applied. Medications: Current Medications Medications (Trade) Dose Ordered Sig/Tory Route PRN Reason Start Time Stop Time Status Last Admin Dose Admin Sodium Chloride 500 ml @ 50 mls/hr 1X ONCE IV 03/24/20 15:00 03/25/20 00:59 DC 03/24/20 14:42 Multivitamins (Thera M Plus) 1 tab DAILY PO 03/25/20 13:00 03/25/20 12:59 Ascorbic Acid (Vitamin C) 500 mg DAILY PO 03/25/20 13:00 03/25/20 12:59 Sodium Chloride 500 ml @ 30 mls/hr CONT PRN IV SEE COMMENTS 03/25/20 13:00 03/25/20 13:25 Justicifation of Admission Dx: Justifications for Admission: Justification of Admission Dx: Yes Sepsis: Bacteremia Altered Mental Status: Altered Mental Status MIRIAM LINDQUIST MD Mar 25, 2020 14:10
--- NOTE | 2020-03-25 15:02 | RAD ---
Portable chest x-ray compared to similar exam dated March 21, 2020 for central line placement. FINDINGS: Right IJ central line is properly position. There is new layering pleural effusion throughout the right chest, there may be some associated atelectasis as well. There is central vascular congestion without cynthia pulmonary edema. Heart size within normal limits. Severe postsurgical and degenerative changes of the right shoulder are stable. IMPRESSION: 1. New moderate layering pleural effusion on the right chest along with suggestion of underlying volume loss from atelectasis. 2. Appropriately positioned central line. Electronically signed by: Melo Larose MD (03/25/2020 2:59 PM) [id number]
[2020-03-25] MEDS: fentaNYL PF VIAL 100 MCG/2 ML VIAL IVP PRN ×2 (16:27→20:10)
[2020-03-25] MEDS: oxyCODONE IR 5 MG TABLET PO PRN (16:28)
[2020-03-25 18:31] LABS: CALCIUM 7.2 mg/dL (8.5-10.1); CREATININE 0.9 mg/dL (0.7-1.3); GFR 86.1; POTASSIUM 3.8 mmol/L (3.5-5.1)
[2020-03-25] MEDS: ATORVASTATIN CALCIUM 20 MG TABLET PO SCH (21:41)
[2020-03-25] MEDS: INSULIN GLARGINE SYRINGE. SQ SCH (21:44)
[2020-03-26] VITALS (20 sets, daily range): BP systolic 86–142; BP diastolic 53–76
[2020-03-26 01:12] LABS: CALCIUM 7.2 mg/dL (8.5-10.1); GFR 76.2; POTASSIUM 3.8 mmol/L (3.5-5.1)
[2020-03-26] MEDS: fentaNYL PF VIAL 100 MCG/2 ML VIAL IVP PRN ×5 (02:35→19:16)
[2020-03-26] MEDS: SODIUM CHLORIDE 3 % 500 ML IV PRN (05:37)
--- NOTE | 2020-03-26 05:57 | PDOC ---
Infectious Disease Note Subjective Subjective Did not sleep at night. Elbow ok His abdominal discomfort left lower quadrant with drain - better No fevers/c/s/n/v/d/soa Mouth is dry and elbow is ok ROS ROS o/w neg Vital Sign Vital Signs Vital Signs Date Time Temp Pulse Resp B/P (MAP) Pulse Ox O2 Delivery O2 Flow Rate FiO2 03/26/20 05:00 92 22 105/63 (77) 97 Room Air 03/26/20 02:00 99.5 99.5 03/25/20 20:10 92.0 Physical Exam PHYSICAL EXAM GENERAL: Alert, awake, in bed , coop looks comfortable. HEENT: Normocephalic, atraumatic, anicteric. Oral mucosa dry. No thrush. NECK: Supple. Right IJ present - clean LUNGS: Decreased breath sounds at bases. No wheezing. No accessory muscle use. HEART: S1, S2 regular. No murmurs. ABDOMEN: Mildly distended. Bowel sounds present, nontender, no rebound, no guarding. JULIA with serous fluid. Pump clean in LLQ EXTREMITIES: No edema, no cyanosis. Left elbow wound is clean but now open more. NEUROLOGIC: Alert, awake - confused PSYCHIATRIC: Cooperative. SKIN: no rash Labs Lab Laboratory Tests Test 03/25/20 08:11 03/25/20 10:50 03/25/20 11:30 03/25/20 16:26 Glucose (Fingerstick) 141 mg/dL (70-99) 168 mg/dL (70-99) 83 mg/dL (70-99) Sodium Level 125 mmol/L (136-145) Test 03/25/20 18:00 03/25/20 21:33 03/26/20 00:30 Sodium Level 125 mmol/L (136-145) 127 mmol/L (136-145) Potassium Level 3.8 mmol/L (3.5-5.1) 3.8 mmol/L (3.5-5.1) Chloride Level 95 mmol/L (98-107) 96 mmol/L (98-107) Carbon Dioxide Level 25 mmol/L (21-32) 25 mmol/L (21-32) Anion Gap 5 (6-14) 6 (6-14) Blood Urea Nitrogen 6 mg/dL (8-26) 6 mg/dL (8-26) Creatinine 0.9 mg/dL (0.7-1.3) 1.0 mg/dL (0.7-1.3) Estimated GFR (Cockcroft-Gault) 86.1 76.2 Glucose Level 129 mg/dL (70-99) 137 mg/dL (70-99) Calcium Level 7.2 mg/dL (8.5-10.1) 7.2 mg/dL (8.5-10.1) Glucose (Fingerstick) 187 mg/dL (70-99) Micro IMPRESSION: Left elbow laceration superficial to the olecranon process with no radiopaque foreign body or acute osseous abnormality Preliminary MANY GRAM NEGATIVE RODS on 03/22/20 at 1118 FINAL ID= [ESCHERICHIA COLI] MANY ANAEROBIC GRAM NEGATIVE RODS on 03/23/20 at 1159 FINAL ID= [BACTEROIDES THETAIOTAOMICRON G] ESCHERICHIA COLI BACTEROIDES THETAIOTAOMICRON G ANTIMICROBIAL SUSCEPTIBILITY Preliminary Comment NEG JUWAN 56 ESCHERICHIA COLI ANTIBIOTIC RESULT INTERPRETATION AMPICILLIN/SULBACTAM 16/8 I AMIKACIN <=16 S AMPICILLIN >16 R AMOXICILLIN/K CLAVULANATE <=8/4 S AZTREONAM <=4 S CEFTRIAXONE <=1 S CEFTAZIDIME <=1 S CEFOTAXIME <=2 S CONTINUED ON NEXT PAGE RUN DATE: 03/23/20 [facility] *LIVE* PAGE 2 RUN TIME: 1204 Specimen Inquiry SPEC: [id number] PATIENT: LASHAY MARQUEZ [id number] (Continued) Procedure Result ANTIMICROBIAL SUSCEPTIBILITY Preliminary (continued) CEFOXITIN <=8 S CIPROFLOXACIN <=0.25 S CEFEPIME <=2 S CEFUROXIME <=4 S CEFTAZIDIME/AVIBACTAM <=4 S ERTAPENEM <=0.5 S GENTAMICIN <=2 S LEVOFLOXACIN <=0.5 S MEROPENEM <=1 S PIPERACILLIN/TAZOBACTAM <=8 S TRIMETHOPRIM/SULFAMETHOXAZOLE > R TETRACYCLINE <=4 S TOBRAMYCIN <=[address] 03/23 Impression: 1. No destructive endplate changes or paravertebral inflammatory process to suggest discitis osteomyelitis although evaluation is limited on noncontrast CT. If persistent clinical concern, MRI can better evaluate. 2. Multilevel lumbar spondylosis with canal narrowing most prominent L2-L3 and L3-L4. 3. Multilevel neural foraminal narrowing most prominent L3-L4 and L4-L5. 4. Moderate right and small left pleural effusion with adjacent atelectasis, increased on the right. 5. Decreased bilateral pulmonary groundglass opacities. Microbiology 03/16/20 Blood Culture - Final, Complete NO GROWTH AFTER 5 DAYS Objective Assessment Transfered to ICU for hyponatremia Leukopenia 1. Severe Sepsis present on admission from gram-negative bacteremia.03/15. 03/16 - neg 2. E Coli bacteremia ? intrabdominal source s/p abscess drain 03/21 - Ecoli 3. Leukocytosis and lactic acidosis.Solumedrol - 03/18/PRBCs - better 4. Anemia, status post PRBC.03/21 and 03/23- bleed scan neg 03/21 5. Hyponatremia. 6. Encephalopathy - resolving, likely metabolic, CT head negative 7. History of renal cancer.S/P Nephrectomy 8. Abnormal LFTs ,Liver mass 9. History of ALLERGIES TO CLINDAMYCIN AND LEVAQUIN. 10. Recent placement of metallic stent 11. Thrombocytopenia - better? Sepsis vs other 12 COVID-19 neg 03/19 13. Back pain - CT without gross findings 14. Left elbow wound - open but clean - Plan Plan of Care Added Flagyl for Bacteroides 03/24 XRAY L elbow -reviewed Cont Ceftriaxone 03/20 F/u IR cults - F/U AM labs. Anemia per primary Electrolytes per primary Maintain aspiration precaution. Local wound care as directed Discussed with nursing staff DC meropenem 03/18 - 03/20 previous Zosyn 03/17- 03/18. Dose Rocephin 03/16 GRIS CASAS MD Mar 26, 2020 05:57
[2020-03-26 06:19] LABS: CALCIUM 7.1 mg/dL (8.5-10.1); GFR 76.2; POTASSIUM 3.4 mmol/L (3.5-5.1)
[2020-03-26] MEDS: metroNIDAZOLE 500 MG TABLET PO SCH ×3 (06:22→20:55)
[2020-03-26 06:28] LABS: BASO % 1 % (0-3); EOS % 1 % (0-3); HEMATOCRIT 30.5 % (39.0-53.0); HEMOGLOBIN 10.5 g/dL (13.0-17.5); LYMPH # 0.4 x10^3/uL (1.0-4.8); LYMPH % 10 % (24-48); MEAN CORPUSCULAR HEMOGLOBIN 29 pg (25-35); MEAN CORPUSCULAR HGB CONC 34 g/dL (31-37); MEAN CORPUSCULAR VOLUME 85 fL (79-100); MONO # 0.4 x10^3/uL (0.0-1.1); MONO % 9 % (0-9); NEUT % 80 % (31-73); PLATELET COUNT 245 x10^3/uL (140-400); RED BLOOD COUNT 3.59 x10^6/uL (4.30-5.70); RED CELL DISTRIBUTION WIDTH 15.8 % (11.5-14.5); WHITE BLOOD COUNT 3.7 x10^3/uL (4.0-11.0)
--- NOTE | 2020-03-26 07:10 | NUR ---
Pt attempting to get out of bed and is confused. This RN and CYNDIE Osborn tries to reorient pt. Pt believes that we are is and daughter. Upon informing him that we are his nurses, he gets agitated and states, "Stop lying". Pt continues to try and get out of bed and swinging his arms. This RN reaches out to keep him from harming himself and falling. Pt states "I will slap you if you try to stop me". Charge nurse at bedside and helps pt get into bed. This RN administered haldol. Pt in bed and calm. Will continue to assess and monitor.
[2020-03-26] MEDS: HALOPERIDOL LACTATE 5 MG/ML VIAL. IVP PRN (07:14)
[2020-03-26] MEDS: INSULIN LISPRO 300 UNITS/3 ML VIAL. SQ SCH ×4 (07:30→20:55)
[2020-03-26] MEDS: BUDESONIDE 0.5 MG/2 ML NEBU. NEB SCH ×2 (07:56→19:42)
[2020-03-26] MEDS: IPRATRPIUM/ALBUTEROL 0.5/2.5MG 3 ML NEBU. NEB SCH ×4 (07:56→19:42)
[2020-03-26] MEDS: PANTOPRAZOLE IV PUSH 40 MG VIAL. IVP SCH ×2 (07:59→17:04)
[2020-03-26] MEDS: oxyCODONE IR 5 MG TABLET PO PRN ×2 (08:00→20:55)
[2020-03-26] MEDS: tiZANidine 4 MG TABLET. PO PRN (08:00)
[2020-03-26] MEDS: MONTELUKAST SODIUM 10 MG TABLET. PO SCH (08:00)
[2020-03-26] MEDS: DULoxetine HCL 30 MG CAPSULE.DR PO SCH ×2 (08:01→20:55)
[2020-03-26] MEDS: LINAGLIPTIN 5 MG TABLET PO SCH (08:01)
[2020-03-26] MEDS: LACTOBACILLUS RHAMNOSUS GG 1 CAPSULE. PO SCH ×2 (08:01→20:54)
[2020-03-26] MEDS: MULTIVITAMIN with MINERAL TABLET. PO SCH (08:01)
[2020-03-26] MEDS: METOPROLOL TART IMMED RELEASE 25 MG TABLET. PO SCH ×2 (08:02→20:54)
[2020-03-26] MEDS: cefTRIAXone IV Push 2 GM VIAL. IVP SCH (08:02)
[2020-03-26] MEDS: amLODIPine BESYLATE 10 MG TABLET PO SCH (08:06)
[2020-03-26] MEDS: ASCORBIC ACID 500 MG TABLET PO SCH (08:08)
--- NOTE | 2020-03-26 10:24 | PDOC ---
[employer] PROGRESS NOTE Chief Complaint Chief Complaint GI BLEED - stable Hyponatremiacontinue with 3% saline in the ICU Hepatic mass s/p IR biliary drainpending cultures History of renal cell carcinoma Recent placement of percutaneous biliary drain for hepatic abscess Severe sepsis Gram negative bacteremiacontinue ceftriaxone acute METABOLIC ENCEPHALOPATHY - waxing and waning. Dementia prevention protocol discussed with the RN. COPD - will cont home nebs Normocytic anemia with GI bleed PUD: prepyloric ulcers via EGD 03/10/2020 Biliary stent and mild pneumobilia seen previously. CKD STAGE 3 with Cr 1.6-2.0 // baseline Liver biopsy 2009 from LEFT lobe of liver during w/u of renal cancer; cavernous hemangioma. 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 She notes he has had a progressive decline over the last month or so. Patient is encephalopathic and unable to answer questions. Patient given glucagon prior to arrival and blood sugar improved from 55-83. notes issues w/ confusion since cholecystectomy at on 12/25/19. notes an IR drain was placed after a readmission for worsening and remained in place for 3 weeks and was removed at the end of January, then he returned for common bile duct stent placement last week. She notes that she was told that he had a "small spot" on his liver at [facility] and that his sodium was "better" at 129 last week. She also notes he has lost 46# in the past 2 months and she is not aware of any diagnosis for him. Patient is not even speaking, he is moaning and writhing in bed. Has been tested 3x for covid 19 and negative with last check over a week ago. CXR with pulmonary vasculare congestion and CT head negative for acute process. Labs significant for WBC 17.2, Hb 8.2, platelets 244, INR 1.3, Na 123, K 4.7, BUN 49, Cr 3.4, Albumin 1.7, Glucose 97, Mg 1.7, AST 84, ALT 66, Alk phos 228, Bili 1.2. BNP 52646 Admitted to ICU for further care. 03/26/2020 No acute events overnight. Patient has some delirium this morning. With agitation required IV Haldol. Patient is currently oriented and conversing appropriately. Patient's chart, labs, images were reviewed and discussed with RN 03/25/2020 No acute events overnight. Patient's mental status is stable. Patient's chart, labs, images were reviewed and discussed with RN 03/23, need try to transfer to [facility] soon, hgb drop again today, 1 u PRBC ordered, GI and surg following discussed abx with ID, following he is weak, not eating much, DNR reviewed, 03/24, hgb better ID changing abx cultures pending PULM following, needs LTAC likely consider tomorrow Vitals/I&O Vitals/I&O: Vital Signs Date Time Temp Pulse Resp B/P (MAP) Pulse Ox O2 Delivery O2 Flow Rate FiO2 03/26/20 09:45 16 Room Air 03/26/20 08:06 88 110/66 03/26/20 07:56 95 03/26/20 02:00 99.5 99.5 03/25/20 20:10 92.0 I & O 03/25/20 03/25/20 03/26/20 15:00 23:00 07:00 Intake Total 480 ml 600 ml 100 ml Output Total 400 ml 225 ml 920 ml Balance 80 ml 375 ml -820 ml Physical Exam Physical Exam: GENERAL: Alert, awake, in bed , coop looks comfortable. HEENT: Normocephalic, atraumatic, anicteric. Oral mucosa dry. No thrush. NECK: Supple. Right IJ present - clean LUNGS: Decreased breath sounds at bases. No wheezing. No accessory muscle use. HEART: S1, S2 regular. No murmurs. ABDOMEN: Mildly distended. Bowel sounds present, nontender, no rebound, no guarding. JULIA with serous fluid. Pump clean in LLQ EXTREMITIES: No edema, no cyanosis. Left elbow wound is clean but now open more. NEUROLOGIC: Alert, awake - confused PSYCHIATRIC: Cooperative. SKIN: no rash General: Alert, Oriented X3, Cooperative, mild distress Heart: Regular rate Lungs: Clear Abdomen: Normal bowel sounds, Soft, No tenderness, Other (JULIA drain in place with serosanguineous drainage) Extremities: No edema Skin: No significant lesion Labs Labs: Laboratory Tests Test 03/25/20 10:50 03/25/20 11:30 03/25/20 16:26 03/25/20 18:00 Sodium Level 125 mmol/L (136-145) 125 mmol/L (136-145) Glucose (Fingerstick) 168 mg/dL (70-99) 83 mg/dL (70-99) Potassium Level 3.8 mmol/L (3.5-5.1) Chloride Level 95 mmol/L (98-107) Carbon Dioxide Level 25 mmol/L (21-32) Anion Gap 5 (6-14) Blood Urea Nitrogen 6 mg/dL (8-26) Creatinine 0.9 mg/dL (0.7-1.3) Estimated GFR (Cockcroft-Gault) 86.1 Glucose Level 129 mg/dL (70-99) Calcium Level 7.2 mg/dL (8.5-10.1) Test 03/25/20 21:33 03/26/20 00:30 03/26/20 05:30 03/26/20 08:11 Glucose (Fingerstick) 187 mg/dL (70-99) 135 mg/dL (70-99) Sodium Level 127 mmol/L (136-145) 128 mmol/L (136-145) Potassium Level 3.8 mmol/L (3.5-5.1) 3.4 mmol/L (3.5-5.1) Chloride Level 96 mmol/L (98-107) 98 mmol/L (98-107) Carbon Dioxide Level 25 mmol/L (21-32) 26 mmol/L (21-32) Anion Gap 6 (6-14) 4 (6-14) Blood Urea Nitrogen 6 mg/dL (8-26) 6 mg/dL (8-26) Creatinine 1.0 mg/dL (0.7-1.3) 1.0 mg/dL (0.7-1.3) Estimated GFR (Cockcroft-Gault) 76.2 76.2 Glucose Level 137 mg/dL (70-99) 151 mg/dL (70-99) Calcium Level 7.2 mg/dL (8.5-10.1) 7.1 mg/dL (8.5-10.1) White Blood Count 3.7 x10^3/uL (4.0-11.0) Red Blood Count 3.59 x10^6/uL (4.30-5.70) Hemoglobin 10.5 g/dL (13.0-17.5) Hematocrit 30.5 % (39.0-53.0) Mean Corpuscular Volume 85 fL (79-100) Mean Corpuscular Hemoglobin 29 pg (25-35) Mean Corpuscular Hemoglobin Concent 34 g/dL (31-37) Red Cell Distribution Width 15.8 % (11.5-14.5) Platelet Count 245 x10^3/uL (140-400) Neutrophils (%) (Auto) 80 % (31-73) Lymphocytes (%) (Auto) 10 % (24-48) Monocytes (%) (Auto) 9 % (0-9) Eosinophils (%) (Auto) 1 % (0-3) Basophils (%) (Auto) 1 % (0-3) Neutrophils # (Auto) 3.0 x10^3/uL (1.8-7.7) Lymphocytes # (Auto) 0.4 x10^3/uL (1.0-4.8) Monocytes # (Auto) 0.4 x10^3/uL (0.0-1.1) Eosinophils # (Auto) 0.0 x10^3/uL (0.0-0.7) Basophils # (Auto) 0.0 x10^3/uL (0.0-0.2) Assessment and Plan Assessmemt and Plan Problems Medical Problems: (1) Acute kidney injury Status: Acute (2) Encephalopathy Status: Acute (3) Hypoglycemia Status: Acute (4) Hyponatremia Status: Acute (5) Seizure Status: Acute Comment Review of Relevant I have reviewed the following items clarisse (where applicable) has been applied. Medications: Current Medications Medications (Trade) Dose Ordered Sig/Tory Route PRN Reason Start Time Stop Time Status Last Admin Dose Admin Multivitamins (Thera M Plus) 1 tab DAILY PO 03/25/20 13:00 03/26/20 08:01 Ascorbic Acid (Vitamin C) 500 mg DAILY PO 03/25/20 13:00 03/26/20 08:08 Sodium Chloride 500 ml @ 30 mls/hr CONT PRN IV SEE COMMENTS 03/25/20 13:00 03/26/20 05:37 Fentanyl Citrate (Fentanyl 2ml Vial) 25 mcg PRN Q2HR PRN IVP PAIN 03/25/20 13:15 03/26/20 09:20 DC 03/26/20 07:59 Fentanyl Citrate (Fentanyl 2ml Vial) 25 mcg PRN Q1HR PRN IVP PAIN 03/26/20 09:30 03/26/20 09:45 Justicifation of Admission Dx: Justifications for Admission: Justification of Admission Dx: Yes Sepsis: Bacteremia Altered Mental Status: Altered Mental Status MIRIAM LINDQUIST MD Mar 26, 2020 10:24
--- NOTE | 2020-03-26 11:08 | PDOC ---
CARDIOLOGY PROGRESS NOTE SUBJECTIVE: No CV issues overnight. CXR from yesterday with layering effusion present OBJECTIVE: Vital Signs/I&O: VSS Objective: GEN.: No apparent distress. Alert and oriented. HEENT: Head is normocephalic, atraumatic NECK: Supple. LUNGS: Decreased breath sounds. HEART: RRR, S1, S2 present. Peripheral pulses intact ABDOMEN: Soft, nontender. Positive bowel sounds. EXTREMITIES: Without any cyanosis. NEUROLOGIC: Normal speech, normal tone PSYCHIATRIC: Normal affect, normal mood. SKIN: No ulcerations CURRENT MEDICATIONS: Pertinent CV meds: Amlodipine 10mg daily Metoprolol Tartrate 25mg p.o bid Atorvastatin 20mg daily DIAGNOSTIC TESTING: Alb 1.4, Cr wnl Na 125 Echo w/ normal LV function. Labs: Laboratory Tests 03/26/20 05:30 Laboratory Tests Test 03/25/20 11:30 03/25/20 16:26 03/25/20 18:00 03/25/20 21:33 Glucose (Fingerstick) 168 mg/dL (70-99) H 83 mg/dL (70-99) 187 mg/dL (70-99) H Sodium Level 125 mmol/L (136-145) L Potassium Level 3.8 mmol/L (3.5-5.1) Chloride Level 95 mmol/L (98-107) L Carbon Dioxide Level 25 mmol/L (21-32) Anion Gap 5 (6-14) L Blood Urea Nitrogen 6 mg/dL (8-26) L Creatinine 0.9 mg/dL (0.7-1.3) Estimated GFR (Cockcroft-Gault) 86.1 Glucose Level 129 mg/dL (70-99) H Calcium Level 7.2 mg/dL (8.5-10.1) L Test 03/26/20 00:30 03/26/20 05:30 03/26/20 08:11 Sodium Level 127 mmol/L (136-145) L 128 mmol/L (136-145) L Potassium Level 3.8 mmol/L (3.5-5.1) 3.4 mmol/L (3.5-5.1) L Chloride Level 96 mmol/L (98-107) L 98 mmol/L (98-107) Carbon Dioxide Level 25 mmol/L (21-32) 26 mmol/L (21-32) Anion Gap 6 (6-14) 4 (6-14) L Blood Urea Nitrogen 6 mg/dL (8-26) L 6 mg/dL (8-26) L Creatinine 1.0 mg/dL (0.7-1.3) 1.0 mg/dL (0.7-1.3) Estimated GFR (Cockcroft-Gault) 76.2 76.2 Glucose Level 137 mg/dL (70-99) H 151 mg/dL (70-99) H Calcium Level 7.2 mg/dL (8.5-10.1) L 7.1 mg/dL (8.5-10.1) L White Blood Count 3.7 x10^3/uL (4.0-11.0) L Red Blood Count 3.59 x10^6/uL (4.30-5.70) L Hemoglobin 10.5 g/dL (13.0-17.5) L Hematocrit 30.5 % (39.0-53.0) L Mean Corpuscular Volume 85 fL (79-100) Mean Corpuscular Hemoglobin 29 pg (25-35) Mean Corpuscular Hemoglobin Concent 34 g/dL (31-37) Red Cell Distribution Width 15.8 % (11.5-14.5) H Platelet Count 245 x10^3/uL (140-400) Neutrophils (%) (Auto) 80 % (31-73) H Lymphocytes (%) (Auto) 10 % (24-48) L Monocytes (%) (Auto) 9 % (0-9) Eosinophils (%) (Auto) 1 % (0-3) Basophils (%) (Auto) 1 % (0-3) Neutrophils # (Auto) 3.0 x10^3/uL (1.8-7.7) Lymphocytes # (Auto) 0.4 x10^3/uL (1.0-4.8) L Monocytes # (Auto) 0.4 x10^3/uL (0.0-1.1) Eosinophils # (Auto) 0.0 x10^3/uL (0.0-0.7) Basophils # (Auto) 0.0 x10^3/uL (0.0-0.2) Glucose (Fingerstick) 135 mg/dL (70-99) H ASSESSMENT: 1. Acute on chronic diastolic HF in the setting of metabolic derangements ( sepsis, hypoalbuminemia, anemia etc) 2. HTN 3. Dyslipidemia PLAN: 1. Diuresis as tolerated. Would consider lasix 40mg IVP if ok per nephrology with albumin prior. 2. Will cut amlodipine to 5 mg daily so that BP is improved a bit. 3. Recheck LFt's tomorrow and continue statin for now. Thanks. Will follow along. Justicifation of Admission Dx: Justifications for Admission: Justification of Admission Dx: Yes Sepsis: Bacteremia Altered Mental Status: Altered Mental Status TIFFANIE TEJEDA MD Mar 26, 2020 11:08
--- NOTE | 2020-03-26 11:47 | PDOC ---
G I PROGRESS NOTE Subjective Confused. Got Haldol last night. Ate breakfast well. Objective Staff report non-bloddy stool. Physical Exam Lungs clear. RRR Abdomen soft, not appreciably tender. Drain with turbid bilious fluid. Review of Relevant I have reviewed the following items clarisse (where applicable) has been applied. Labs Laboratory Tests Test 03/24/20 11:50 03/24/20 18:01 03/24/20 21:00 03/25/20 03:50 Glucose (Fingerstick) 108 mg/dL (70-99) 171 mg/dL (70-99) Sodium Level 123 mmol/L (136-145) 126 mmol/L (136-145) Potassium Level 3.5 mmol/L (3.5-5.1) Chloride Level 93 mmol/L (98-107) Carbon Dioxide Level 27 mmol/L (21-32) Anion Gap 6 (6-14) Blood Urea Nitrogen 8 mg/dL (8-26) Creatinine 1.0 mg/dL (0.7-1.3) Estimated GFR (Cockcroft-Gault) 76.2 Glucose Level 162 mg/dL (70-99) Calcium Level 7.4 mg/dL (8.5-10.1) Magnesium Level 1.8 mg/dL (1.8-2.4) Test 03/25/20 08:11 03/25/20 10:50 03/25/20 11:30 03/25/20 16:26 Glucose (Fingerstick) 141 mg/dL (70-99) 168 mg/dL (70-99) 83 mg/dL (70-99) Sodium Level 125 mmol/L (136-145) Test 03/25/20 18:00 03/25/20 21:33 03/26/20 00:30 03/26/20 05:30 Sodium Level 125 mmol/L (136-145) 127 mmol/L (136-145) 128 mmol/L (136-145) Potassium Level 3.8 mmol/L (3.5-5.1) 3.8 mmol/L (3.5-5.1) 3.4 mmol/L (3.5-5.1) Chloride Level 95 mmol/L (98-107) 96 mmol/L (98-107) 98 mmol/L (98-107) Carbon Dioxide Level 25 mmol/L (21-32) 25 mmol/L (21-32) 26 mmol/L (21-32) Anion Gap 5 (6-14) 6 (6-14) 4 (6-14) Blood Urea Nitrogen 6 mg/dL (8-26) 6 mg/dL (8-26) 6 mg/dL (8-26) Creatinine 0.9 mg/dL (0.7-1.3) 1.0 mg/dL (0.7-1.3) 1.0 mg/dL (0.7-1.3) Estimated GFR (Cockcroft-Gault) 86.1 76.2 76.2 Glucose Level 129 mg/dL (70-99) 137 mg/dL (70-99) 151 mg/dL (70-99) Calcium Level 7.2 mg/dL (8.5-10.1) 7.2 mg/dL (8.5-10.1) 7.1 mg/dL (8.5-10.1) Glucose (Fingerstick) 187 mg/dL (70-99) White Blood Count 3.7 x10^3/uL (4.0-11.0) Red Blood Count 3.59 x10^6/uL (4.30-5.70) Hemoglobin 10.5 g/dL (13.0-17.5) Hematocrit 30.5 % (39.0-53.0) Mean Corpuscular Volume 85 fL (79-100) Mean Corpuscular Hemoglobin 29 pg (25-35) Mean Corpuscular Hemoglobin Concent 34 g/dL (31-37) Red Cell Distribution Width 15.8 % (11.5-14.5) Platelet Count 245 x10^3/uL (140-400) Neutrophils (%) (Auto) 80 % (31-73) Lymphocytes (%) (Auto) 10 % (24-48) Monocytes (%) (Auto) 9 % (0-9) Eosinophils (%) (Auto) 1 % (0-3) Basophils (%) (Auto) 1 % (0-3) Neutrophils # (Auto) 3.0 x10^3/uL (1.8-7.7) Lymphocytes # (Auto) 0.4 x10^3/uL (1.0-4.8) Monocytes # (Auto) 0.4 x10^3/uL (0.0-1.1) Eosinophils # (Auto) 0.0 x10^3/uL (0.0-0.7) Basophils # (Auto) 0.0 x10^3/uL (0.0-0.2) Test 03/26/20 08:11 Glucose (Fingerstick) 135 mg/dL (70-99) Laboratory Tests Test 03/25/20 16:26 03/25/20 18:00 03/25/20 21:33 03/26/20 00:30 Glucose (Fingerstick) 83 mg/dL (70-99) 187 mg/dL (70-99) Sodium Level 125 mmol/L (136-145) 127 mmol/L (136-145) Potassium Level 3.8 mmol/L (3.5-5.1) 3.8 mmol/L (3.5-5.1) Chloride Level 95 mmol/L (98-107) 96 mmol/L (98-107) Carbon Dioxide Level 25 mmol/L (21-32) 25 mmol/L (21-32) Anion Gap 5 (6-14) 6 (6-14) Blood Urea Nitrogen 6 mg/dL (8-26) 6 mg/dL (8-26) Creatinine 0.9 mg/dL (0.7-1.3) 1.0 mg/dL (0.7-1.3) Estimated GFR (Cockcroft-Gault) 86.1 76.2 Glucose Level 129 mg/dL (70-99) 137 mg/dL (70-99) Calcium Level 7.2 mg/dL (8.5-10.1) 7.2 mg/dL (8.5-10.1) Test 03/26/20 05:30 03/26/20 08:11 White Blood Count 3.7 x10^3/uL (4.0-11.0) Red Blood Count 3.59 x10^6/uL (4.30-5.70) Hemoglobin 10.5 g/dL (13.0-17.5) Hematocrit 30.5 % (39.0-53.0) Mean Corpuscular Volume 85 fL (79-100) Mean Corpuscular Hemoglobin 29 pg (25-35) Mean Corpuscular Hemoglobin Concent 34 g/dL (31-37) Red Cell Distribution Width 15.8 % (11.5-14.5) Platelet Count 245 x10^3/uL (140-400) Neutrophils (%) (Auto) 80 % (31-73) Lymphocytes (%) (Auto) 10 % (24-48) Monocytes (%) (Auto) 9 % (0-9) Eosinophils (%) (Auto) 1 % (0-3) Basophils (%) (Auto) 1 % (0-3) Neutrophils # (Auto) 3.0 x10^3/uL (1.8-7.7) Lymphocytes # (Auto) 0.4 x10^3/uL (1.0-4.8) Monocytes # (Auto) 0.4 x10^3/uL (0.0-1.1) Eosinophils # (Auto) 0.0 x10^3/uL (0.0-0.7) Basophils # (Auto) 0.0 x10^3/uL (0.0-0.2) Sodium Level 128 mmol/L (136-145) Potassium Level 3.4 mmol/L (3.5-5.1) Chloride Level 98 mmol/L (98-107) Carbon Dioxide Level 26 mmol/L (21-32) Anion Gap 4 (6-14) Blood Urea Nitrogen 6 mg/dL (8-26) Creatinine 1.0 mg/dL (0.7-1.3) Estimated GFR (Cockcroft-Gault) 76.2 Glucose Level 151 mg/dL (70-99) Calcium Level 7.1 mg/dL (8.5-10.1) Glucose (Fingerstick) 135 mg/dL (70-99) Microbiology 03/21/20 AFB Specimen Processing Tissue - Final, Resulted 03/21/20 Acid Fast Bacilli Culture, Resulted Pending 03/21/20 Gram Stain - Final, Resulted 03/21/20 Fungal Culture, Resulted Pending 03/21/20 Fungal Culture Result 1, Resulted Pending 03/16/20 Blood Culture - Final, Complete NO GROWTH AFTER 5 DAYS Vitals/I & O Vital Sign - Last 24 Hours 03/25/20 03/25/20 03/25/20 03/25/20 11:55 12:20 12:20 13:00 Pulse 80 80 Resp 16 B/P (MAP) 110/63 (79) Pulse Ox 100 100 100 O2 Delivery Room Air Room Air Room Air Room Air 03/25/20 03/25/20 03/25/20 03/25/20 14:00 15:00 15:52 16:27 Pulse 86 84 Resp 16 Pulse Ox 100 100 99 O2 Delivery Room Air Room Air Room Air Room Air 03/25/20 03/25/20 03/25/20 03/25/20 16:28 16:30 16:30 16:30 Pulse 90 90 Resp 16 B/P (MAP) 130/72 (91) Pulse Ox 99 99 O2 Delivery Room Air Room Air Room Air Room Air 03/25/20 03/25/20 03/25/20 03/25/20 16:57 17:00 17:28 18:00 Pulse 94 104 Resp 16 16 16 B/P (MAP) 127/69 (88) 128/66 (86) Pulse Ox 93 96 O2 Delivery Room Air Room Air Room Air Room Air 03/25/20 03/25/20 03/25/20 03/25/20 19:00 20:00 20:00 20:10 Temp 98.4 98.6 98.4 98.6 Pulse 106 114 Resp 19 20 20 B/P (MAP) 110/67 (81) 106/71 (83) Pulse Ox 100 98 O2 Delivery Room Air Room Air Room Air Room Air O2 Flow Rate 92.0 03/25/20 03/25/20 03/25/20 03/25/20 20:24 20:40 21:00 21:40 Pulse 105 105 Resp 22 19 B/P (MAP) 114/64 (81) 114/64 Pulse Ox 99 O2 Delivery Room Air Room Air Room Air 03/25/20 03/25/20 03/26/20 03/26/20 22:00 23:00 00:01 01:00 Pulse 103 102 102 108 Resp 19 21 20 26 B/P (MAP) 123/77 (92) 106/62 (77) 119/69 (86) 86/59 (68) Pulse Ox 97 97 97 98 O2 Delivery Room Air Room Air Room Air Room Air 03/26/20 03/26/20 03/26/20 03/26/20 02:00 02:35 03:05 04:00 Temp 99.5 99.5 Pulse 109 108 Resp 18 18 21 19 B/P (MAP) 100/65 (77) 142/76 (98) Pulse Ox 97 98 97 99 O2 Delivery Room Air Room Air Room Air Room Air 03/26/20 03/26/20 03/26/20 03/26/20 05:00 06:00 07:00 07:30 Temp 98.3 98.3 Pulse 92 97 92 Resp 22 21 16 B/P (MAP) 105/63 (77) 112/65 (81) 119/69 (86) Pulse Ox 97 96 96 O2 Delivery Room Air Room Air Room Air Room Air 03/26/20 03/26/20 03/26/20 03/26/20 07:56 07:59 08:00 08:00 Pulse 88 Resp 16 16 16 B/P (MAP) 110/66 (81) Pulse Ox 95 94 O2 Delivery Room Air Room Air Room Air Room Air 03/26/20 03/26/20 03/26/20 03/26/20 08:02 08:06 08:29 09:00 Pulse 88 88 Resp 16 16 B/P (MAP) 110/66 110/66 O2 Delivery Room Air Room Air 03/26/20 03/26/20 03/26/20 03/26/20 09:00 09:45 10:00 10:15 Pulse 102 94 Resp 16 16 16 16 B/P (MAP) 119/65 (83) 100/62 (75) Pulse Ox 100 100 O2 Delivery Room Air Room Air Room Air Room Air Intake and Output 03/25/20 03/25/20 03/26/20 15:00 23:00 07:00 Intake Total 480 ml 600 ml 100 ml Output Total 400 ml 225 ml 920 ml Balance 80 ml 375 ml -820 ml Problem List Problems Medical Problems: (1) Acute kidney injury Status: Acute (2) Encephalopathy Status: Acute (3) Hypoglycemia Status: Acute (4) Hyponatremia Status: Acute (5) Seizure Status: Acute Assessment Hematochezia, ceased. Suspect ischemic colitis. Liver abcess. Still purulent fluid out drain. Plan of Care Note Continue support. Needs more reliable mental state. Justicifation of Admission Dx: Justifications for Admission: Justification of Admission Dx: Yes Sepsis: Bacteremia Altered Mental Status: Altered Mental Status JAGDISH SEYMOUR MD Mar 26, 2020 11:47
--- NOTE | 2020-03-26 11:56 | PDOC ---
Renal-Progress Notes Subjective Notes Notes CONFUSED History of Present Illness Hx of present illness NO CHANGE Vitals Vitals Vital Signs Date Time Temp Pulse Resp B/P (MAP) Pulse Ox O2 Delivery O2 Flow Rate FiO2 03/26/20 11:50 Room Air 03/26/20 10:15 16 03/26/20 10:00 94 100/62 (75) 100 03/26/20 07:00 98.3 98.3 03/25/20 20:10 92.0 Weight Weight [ ] I.O. Intake and Output Intake and Output 03/26/20 07:00 Intake Total 1180 ml Output Total 1545 ml Balance -365 ml Intake Oral 1180 ml Output Urine Total 1525 ml Drainage Total 20 ml Labs Labs Laboratory Tests Test 03/25/20 16:26 03/25/20 18:00 03/25/20 21:33 03/26/20 00:30 Glucose (Fingerstick) 83 mg/dL (70-99) 187 mg/dL (70-99) Sodium Level 125 mmol/L (136-145) 127 mmol/L (136-145) Potassium Level 3.8 mmol/L (3.5-5.1) 3.8 mmol/L (3.5-5.1) Chloride Level 95 mmol/L (98-107) 96 mmol/L (98-107) Carbon Dioxide Level 25 mmol/L (21-32) 25 mmol/L (21-32) Anion Gap 5 (6-14) 6 (6-14) Blood Urea Nitrogen 6 mg/dL (8-26) 6 mg/dL (8-26) Creatinine 0.9 mg/dL (0.7-1.3) 1.0 mg/dL (0.7-1.3) Estimated GFR (Cockcroft-Gault) 86.1 76.2 Glucose Level 129 mg/dL (70-99) 137 mg/dL (70-99) Calcium Level 7.2 mg/dL (8.5-10.1) 7.2 mg/dL (8.5-10.1) Test 03/26/20 05:30 03/26/20 08:11 White Blood Count 3.7 x10^3/uL (4.0-11.0) Red Blood Count 3.59 x10^6/uL (4.30-5.70) Hemoglobin 10.5 g/dL (13.0-17.5) Hematocrit 30.5 % (39.0-53.0) Mean Corpuscular Volume 85 fL (79-100) Mean Corpuscular Hemoglobin 29 pg (25-35) Mean Corpuscular Hemoglobin Concent 34 g/dL (31-37) Red Cell Distribution Width 15.8 % (11.5-14.5) Platelet Count 245 x10^3/uL (140-400) Neutrophils (%) (Auto) 80 % (31-73) Lymphocytes (%) (Auto) 10 % (24-48) Monocytes (%) (Auto) 9 % (0-9) Eosinophils (%) (Auto) 1 % (0-3) Basophils (%) (Auto) 1 % (0-3) Neutrophils # (Auto) 3.0 x10^3/uL (1.8-7.7) Lymphocytes # (Auto) 0.4 x10^3/uL (1.0-4.8) Monocytes # (Auto) 0.4 x10^3/uL (0.0-1.1) Eosinophils # (Auto) 0.0 x10^3/uL (0.0-0.7) Basophils # (Auto) 0.0 x10^3/uL (0.0-0.2) Sodium Level 128 mmol/L (136-145) Potassium Level 3.4 mmol/L (3.5-5.1) Chloride Level 98 mmol/L (98-107) Carbon Dioxide Level 26 mmol/L (21-32) Anion Gap 4 (6-14) Blood Urea Nitrogen 6 mg/dL (8-26) Creatinine 1.0 mg/dL (0.7-1.3) Estimated GFR (Cockcroft-Gault) 76.2 Glucose Level 151 mg/dL (70-99) Calcium Level 7.1 mg/dL (8.5-10.1) Glucose (Fingerstick) 135 mg/dL (70-99) Micro Micro Microbiology 03/21/20 AFB Specimen Processing Tissue - Final, Resulted 03/21/20 Acid Fast Bacilli Culture, Resulted Pending 03/21/20 Gram Stain - Final, Resulted 03/21/20 Fungal Culture, Resulted Pending 03/21/20 Fungal Culture Result 1, Resulted Pending 03/16/20 Blood Culture - Final, Complete NO GROWTH AFTER 5 DAYS Review of Systems Constitutional: yes: other (CONFUSED) Physical Exam General Appearance: no apparent distress Skin: warm Respiratory: bilateral CTA Heart: S1S2, RRR Abdomen: soft, bowel sounds present Genitourinary: bladder flat Extremities: pulses present Neurology: alert, oriented, follow commands Musculoskeletal: Osteoarthritis, Other (cervical stenosis; chronic opioid use) Assessment Assessment IMP HYPONATREMIA-PROB SIADH DUE TO MEDS-NA UP TO 128 COLBY RESOLVED CKD STAGE 3 WITH CR AT BASELINE ANEMIA LOW MAG-CORRECTED HYPOGLYCEMIA MET ENCEPHALOPATHY LEUCOCYTOSIS MALNUTRITION LIVER ABSCESS-S/P DRAIN PLAN STOP 3% SALINE PROTOCOL IV LASIX OFF PAIN MEDS HERNANDEZ OUT ENC PO REPEAT LABS IN AM WILL FOLLOW NADIR REILLY MD Mar 26, 2020 11:56
--- NOTE | 2020-03-26 11:59 | PDOC ---
PULMONARY PROGRESS NOTES Subjective Resting on room air confused at times, answers some of my Qs, follows some of my commands, appears comfortable Vitals Vital Signs Date Time Temp Pulse Resp B/P (MAP) Pulse Ox O2 Delivery O2 Flow Rate FiO2 03/26/20 11:50 Room Air 03/26/20 10:15 16 03/26/20 10:00 94 100/62 (75) 100 03/26/20 07:00 98.3 98.3 03/25/20 20:10 92.0 ROS: No Abdominal Pain General: Alert, No acute distress HEENT: Other (nc at perr ) Lungs: Clear Cardiovascular: S1, S2 Abdomen: Soft, Other (obese) Neuro Exam: Alert Extremities: Other (1+edema) Skin: Warm Labs Laboratory Tests Test 03/24/20 18:01 03/24/20 21:00 03/25/20 03:50 03/25/20 08:11 Glucose (Fingerstick) 171 mg/dL (70-99) 141 mg/dL (70-99) Sodium Level 123 mmol/L (136-145) 126 mmol/L (136-145) Potassium Level 3.5 mmol/L (3.5-5.1) Chloride Level 93 mmol/L (98-107) Carbon Dioxide Level 27 mmol/L (21-32) Anion Gap 6 (6-14) Blood Urea Nitrogen 8 mg/dL (8-26) Creatinine 1.0 mg/dL (0.7-1.3) Estimated GFR (Cockcroft-Gault) 76.2 Glucose Level 162 mg/dL (70-99) Calcium Level 7.4 mg/dL (8.5-10.1) Magnesium Level 1.8 mg/dL (1.8-2.4) Test 03/25/20 10:50 03/25/20 11:30 03/25/20 16:26 03/25/20 18:00 Sodium Level 125 mmol/L (136-145) 125 mmol/L (136-145) Glucose (Fingerstick) 168 mg/dL (70-99) 83 mg/dL (70-99) Potassium Level 3.8 mmol/L (3.5-5.1) Chloride Level 95 mmol/L (98-107) Carbon Dioxide Level 25 mmol/L (21-32) Anion Gap 5 (6-14) Blood Urea Nitrogen 6 mg/dL (8-26) Creatinine 0.9 mg/dL (0.7-1.3) Estimated GFR (Cockcroft-Gault) 86.1 Glucose Level 129 mg/dL (70-99) Calcium Level 7.2 mg/dL (8.5-10.1) Test 03/25/20 21:33 03/26/20 00:30 03/26/20 05:30 03/26/20 08:11 Glucose (Fingerstick) 187 mg/dL (70-99) 135 mg/dL (70-99) Sodium Level 127 mmol/L (136-145) 128 mmol/L (136-145) Potassium Level 3.8 mmol/L (3.5-5.1) 3.4 mmol/L (3.5-5.1) Chloride Level 96 mmol/L (98-107) 98 mmol/L (98-107) Carbon Dioxide Level 25 mmol/L (21-32) 26 mmol/L (21-32) Anion Gap 6 (6-14) 4 (6-14) Blood Urea Nitrogen 6 mg/dL (8-26) 6 mg/dL (8-26) Creatinine 1.0 mg/dL (0.7-1.3) 1.0 mg/dL (0.7-1.3) Estimated GFR (Cockcroft-Gault) 76.2 76.2 Glucose Level 137 mg/dL (70-99) 151 mg/dL (70-99) Calcium Level 7.2 mg/dL (8.5-10.1) 7.1 mg/dL (8.5-10.1) White Blood Count 3.7 x10^3/uL (4.0-11.0) Red Blood Count 3.59 x10^6/uL (4.30-5.70) Hemoglobin 10.5 g/dL (13.0-17.5) Hematocrit 30.5 % (39.0-53.0) Mean Corpuscular Volume 85 fL (79-100) Mean Corpuscular Hemoglobin 29 pg (25-35) Mean Corpuscular Hemoglobin Concent 34 g/dL (31-37) Red Cell Distribution Width 15.8 % (11.5-14.5) Platelet Count 245 x10^3/uL (140-400) Neutrophils (%) (Auto) 80 % (31-73) Lymphocytes (%) (Auto) 10 % (24-48) Monocytes (%) (Auto) 9 % (0-9) Eosinophils (%) (Auto) 1 % (0-3) Basophils (%) (Auto) 1 % (0-3) Neutrophils # (Auto) 3.0 x10^3/uL (1.8-7.7) Lymphocytes # (Auto) 0.4 x10^3/uL (1.0-4.8) Monocytes # (Auto) 0.4 x10^3/uL (0.0-1.1) Eosinophils # (Auto) 0.0 x10^3/uL (0.0-0.7) Basophils # (Auto) 0.0 x10^3/uL (0.0-0.2) Laboratory Tests Test 03/25/20 16:26 03/25/20 18:00 03/25/20 21:33 03/26/20 00:30 Glucose (Fingerstick) 83 mg/dL (70-99) 187 mg/dL (70-99) Sodium Level 125 mmol/L (136-145) 127 mmol/L (136-145) Potassium Level 3.8 mmol/L (3.5-5.1) 3.8 mmol/L (3.5-5.1) Chloride Level 95 mmol/L (98-107) 96 mmol/L (98-107) Carbon Dioxide Level 25 mmol/L (21-32) 25 mmol/L (21-32) Anion Gap 5 (6-14) 6 (6-14) Blood Urea Nitrogen 6 mg/dL (8-26) 6 mg/dL (8-26) Creatinine 0.9 mg/dL (0.7-1.3) 1.0 mg/dL (0.7-1.3) Estimated GFR (Cockcroft-Gault) 86.1 76.2 Glucose Level 129 mg/dL (70-99) 137 mg/dL (70-99) Calcium Level 7.2 mg/dL (8.5-10.1) 7.2 mg/dL (8.5-10.1) Test 03/26/20 05:30 03/26/20 08:11 White Blood Count 3.7 x10^3/uL (4.0-11.0) Red Blood Count 3.59 x10^6/uL (4.30-5.70) Hemoglobin 10.5 g/dL (13.0-17.5) Hematocrit 30.5 % (39.0-53.0) Mean Corpuscular Volume 85 fL (79-100) Mean Corpuscular Hemoglobin 29 pg (25-35) Mean Corpuscular Hemoglobin Concent 34 g/dL (31-37) Red Cell Distribution Width 15.8 % (11.5-14.5) Platelet Count 245 x10^3/uL (140-400) Neutrophils (%) (Auto) 80 % (31-73) Lymphocytes (%) (Auto) 10 % (24-48) Monocytes (%) (Auto) 9 % (0-9) Eosinophils (%) (Auto) 1 % (0-3) Basophils (%) (Auto) 1 % (0-3) Neutrophils # (Auto) 3.0 x10^3/uL (1.8-7.7) Lymphocytes # (Auto) 0.4 x10^3/uL (1.0-4.8) Monocytes # (Auto) 0.4 x10^3/uL (0.0-1.1) Eosinophils # (Auto) 0.0 x10^3/uL (0.0-0.7) Basophils # (Auto) 0.0 x10^3/uL (0.0-0.2) Sodium Level 128 mmol/L (136-145) Potassium Level 3.4 mmol/L (3.5-5.1) Chloride Level 98 mmol/L (98-107) Carbon Dioxide Level 26 mmol/L (21-32) Anion Gap 4 (6-14) Blood Urea Nitrogen 6 mg/dL (8-26) Creatinine 1.0 mg/dL (0.7-1.3) Estimated GFR (Cockcroft-Gault) 76.2 Glucose Level 151 mg/dL (70-99) Calcium Level 7.1 mg/dL (8.5-10.1) Glucose (Fingerstick) 135 mg/dL (70-99) Medications Active Scripts Medications Dose Route/Sig Max Daily Dose Days Date Category Dose Instructions Etodolac 400 Mg Tablet 1 Tab PO BID 7/22/20 Reported Ondansetron Hcl 8 Mg Tablet 8 Mg PO BID PRN 03/16/20 Reported Oxycodone Hcl Immed.release (Oxycodone Hcl) 15 Mg Tablet 15 Mg PO PRN Q6HRS PRN 03/16/20 Reported Miralax (Polyethylene Glycol 3350) 17 Gm Powd.pack 1 Pkt PO PRN DAILY PRN 04/17/18 Rx Montelukast Sodium Tablet (Montelukast Sodium) 10 Mg Tablet 10 Mg PO DAILY 04/14/18 Reported Basaglar Kwikpen U-100 (Insulin Glargine,Hum.rec.anlog) 100 Unit/1 Ml Insuln.pen 50 Unit SQ HS 04/14/18 Reported Prilosec Otc (Omeprazole Magnesium) 20 Mg Tablet.dr 1 Tab PO DAILY 02/08/16 Reported Novolog Flexpen (Insulin Aspart) 100 Unit/1 Ml Insuln.pen 1 Unit SQ 11/17/15 Reported 15-20 UNITS WITH MEALS TO MAX OF 80 UNITS DAILY Atorvastatin Calcium 20 Mg Tablet 1 Tab PO DAILY 11/17/15 Reported Januvia (Sitagliptin Phosphate) 50 Mg Tablet 1 Tab PO DAILY 11/17/15 Reported Tizanidine Hcl 4 Mg Tablet 1 Tab PO Q6HRS PRN 11/17/15 Reported can have 1-2 tabs Lidoderm (Lidocaine) 700 Mg Adh..patch 1 Patch TP DAILY PRN 11/17/15 Reported Ativan (Lorazepam) 1 Mg Tablet 1 Mg PO BID PRN 11/17/15 Reported Amlodipine Besylate 10 Mg Tablet 10 Mg PO DAILY 11/17/15 Reported Atenolol 25 Mg Tablet 1 Tab PO DAILY 11/17/15 Reported Voltaren (Diclofenac Sodium) 100 Gm Gel..gram. 1 Gm TP QID PRN 11/17/15 Reported Ventolin Hfa Inhaler (Albuterol Sulfate) 18 Gm Hfa.aer.ad 2 Puff IH PRN Q4-6HRS 11/17/15 Reported Cymbalta (Duloxetine Hcl) 60 Mg Capsule.dr 60 Mg PO BID 11/17/15 Reported Impression . 1. Acute respiratory failure with audible upper airway wheezing 03/19 resolved . Could be related to reactive airway disease. The patient has no known asthma. Possibility of vocal cord dysfunction secondary to anxiety would also be a consideration. No recurrence and resolved 2. Anemia, status post transfusion.on going GI bleed-- improved 3. Hypoglycemic encephalopathy, present on admission , improved 4. Chronic kidney disease. hypo Na 5. Abnormal ct chest with basal atelectasis/ vs pneumonia 6. Liver abscess. s/p drain 7. E Coli bacteremia likely intrabdominal source s/p abscess drain 03/21 - Ecoli 8. Abnormal D-Dimer , could be related to Liver abscess . on RA. no suspicion for PE, Neg dopplers 9. ?richie Plan . 1. from pulmonary standpoint stable 2. off Nasal canula, off BIPAP-- remains on room air 3. continue DuoNebs. 4. Pulmicort nebulizer. 5. Follow GI recs 6. Continue antibiotics per ID 7. s/p liver aspiration. 8. dopplers lower extremity neg 9. now on lasix per nephstacey D/W RN and RT JEAN CLAUDE SHERIFF MD Mar 26, 2020 11:59
[2020-03-26] MEDS ORDERED: POTASSIUM CHLORIDE 20 MEQ TABLET.ER. PO ONE (12:00)
[2020-03-26] MEDS ORDERED: FUROSEMIDE 40 MG/4 ML VIAL. IVP ONE (12:00)
--- NOTE | 2020-03-26 12:36 | PDOC ---
SURGICAL PROGRESS NOTE Subjective Pt some decreased mental status, received haldol for aggitation. Vital Signs Vital Signs Date Time Temp Pulse Resp B/P (MAP) Pulse Ox O2 Delivery O2 Flow Rate FiO2 03/26/20 11:50 Room Air 03/26/20 10:15 16 03/26/20 10:00 94 100/62 (75) 100 03/26/20 07:00 98.3 98.3 03/25/20 20:10 92.0 I&O Intake and Output 03/26/20 07:00 Intake Total 1180 ml Output Total 1545 ml Balance -365 ml Intake Oral 1180 ml Output Urine Total 1525 ml Drainage Total 20 ml General: No acute distress Abdomen: Soft, No tenderness Labs Laboratory Tests Test 03/24/20 18:01 03/24/20 21:00 03/25/20 03:50 03/25/20 08:11 Glucose (Fingerstick) 171 mg/dL (70-99) 141 mg/dL (70-99) Sodium Level 123 mmol/L (136-145) 126 mmol/L (136-145) Potassium Level 3.5 mmol/L (3.5-5.1) Chloride Level 93 mmol/L (98-107) Carbon Dioxide Level 27 mmol/L (21-32) Anion Gap 6 (6-14) Blood Urea Nitrogen 8 mg/dL (8-26) Creatinine 1.0 mg/dL (0.7-1.3) Estimated GFR (Cockcroft-Gault) 76.2 Glucose Level 162 mg/dL (70-99) Calcium Level 7.4 mg/dL (8.5-10.1) Magnesium Level 1.8 mg/dL (1.8-2.4) Test 03/25/20 10:50 03/25/20 11:30 03/25/20 16:26 03/25/20 18:00 Sodium Level 125 mmol/L (136-145) 125 mmol/L (136-145) Glucose (Fingerstick) 168 mg/dL (70-99) 83 mg/dL (70-99) Potassium Level 3.8 mmol/L (3.5-5.1) Chloride Level 95 mmol/L (98-107) Carbon Dioxide Level 25 mmol/L (21-32) Anion Gap 5 (6-14) Blood Urea Nitrogen 6 mg/dL (8-26) Creatinine 0.9 mg/dL (0.7-1.3) Estimated GFR (Cockcroft-Gault) 86.1 Glucose Level 129 mg/dL (70-99) Calcium Level 7.2 mg/dL (8.5-10.1) Test 03/25/20 21:33 03/26/20 00:30 03/26/20 05:30 03/26/20 08:11 Glucose (Fingerstick) 187 mg/dL (70-99) 135 mg/dL (70-99) Sodium Level 127 mmol/L (136-145) 128 mmol/L (136-145) Potassium Level 3.8 mmol/L (3.5-5.1) 3.4 mmol/L (3.5-5.1) Chloride Level 96 mmol/L (98-107) 98 mmol/L (98-107) Carbon Dioxide Level 25 mmol/L (21-32) 26 mmol/L (21-32) Anion Gap 6 (6-14) 4 (6-14) Blood Urea Nitrogen 6 mg/dL (8-26) 6 mg/dL (8-26) Creatinine 1.0 mg/dL (0.7-1.3) 1.0 mg/dL (0.7-1.3) Estimated GFR (Cockcroft-Gault) 76.2 76.2 Glucose Level 137 mg/dL (70-99) 151 mg/dL (70-99) Calcium Level 7.2 mg/dL (8.5-10.1) 7.1 mg/dL (8.5-10.1) White Blood Count 3.7 x10^3/uL (4.0-11.0) Red Blood Count 3.59 x10^6/uL (4.30-5.70) Hemoglobin 10.5 g/dL (13.0-17.5) Hematocrit 30.5 % (39.0-53.0) Mean Corpuscular Volume 85 fL (79-100) Mean Corpuscular Hemoglobin 29 pg (25-35) Mean Corpuscular Hemoglobin Concent 34 g/dL (31-37) Red Cell Distribution Width 15.8 % (11.5-14.5) Platelet Count 245 x10^3/uL (140-400) Neutrophils (%) (Auto) 80 % (31-73) Lymphocytes (%) (Auto) 10 % (24-48) Monocytes (%) (Auto) 9 % (0-9) Eosinophils (%) (Auto) 1 % (0-3) Basophils (%) (Auto) 1 % (0-3) Neutrophils # (Auto) 3.0 x10^3/uL (1.8-7.7) Lymphocytes # (Auto) 0.4 x10^3/uL (1.0-4.8) Monocytes # (Auto) 0.4 x10^3/uL (0.0-1.1) Eosinophils # (Auto) 0.0 x10^3/uL (0.0-0.7) Basophils # (Auto) 0.0 x10^3/uL (0.0-0.2) Test 03/26/20 12:00 Glucose (Fingerstick) 165 mg/dL (70-99) Laboratory Tests Test 03/25/20 16:26 03/25/20 18:00 03/25/20 21:33 03/26/20 00:30 Glucose (Fingerstick) 83 mg/dL (70-99) 187 mg/dL (70-99) Sodium Level 125 mmol/L (136-145) 127 mmol/L (136-145) Potassium Level 3.8 mmol/L (3.5-5.1) 3.8 mmol/L (3.5-5.1) Chloride Level 95 mmol/L (98-107) 96 mmol/L (98-107) Carbon Dioxide Level 25 mmol/L (21-32) 25 mmol/L (21-32) Anion Gap 5 (6-14) 6 (6-14) Blood Urea Nitrogen 6 mg/dL (8-26) 6 mg/dL (8-26) Creatinine 0.9 mg/dL (0.7-1.3) 1.0 mg/dL (0.7-1.3) Estimated GFR (Cockcroft-Gault) 86.1 76.2 Glucose Level 129 mg/dL (70-99) 137 mg/dL (70-99) Calcium Level 7.2 mg/dL (8.5-10.1) 7.2 mg/dL (8.5-10.1) Test 03/26/20 05:30 03/26/20 08:11 03/26/20 12:00 White Blood Count 3.7 x10^3/uL (4.0-11.0) Red Blood Count 3.59 x10^6/uL (4.30-5.70) Hemoglobin 10.5 g/dL (13.0-17.5) Hematocrit 30.5 % (39.0-53.0) Mean Corpuscular Volume 85 fL (79-100) Mean Corpuscular Hemoglobin 29 pg (25-35) Mean Corpuscular Hemoglobin Concent 34 g/dL (31-37) Red Cell Distribution Width 15.8 % (11.5-14.5) Platelet Count 245 x10^3/uL (140-400) Neutrophils (%) (Auto) 80 % (31-73) Lymphocytes (%) (Auto) 10 % (24-48) Monocytes (%) (Auto) 9 % (0-9) Eosinophils (%) (Auto) 1 % (0-3) Basophils (%) (Auto) 1 % (0-3) Neutrophils # (Auto) 3.0 x10^3/uL (1.8-7.7) Lymphocytes # (Auto) 0.4 x10^3/uL (1.0-4.8) Monocytes # (Auto) 0.4 x10^3/uL (0.0-1.1) Eosinophils # (Auto) 0.0 x10^3/uL (0.0-0.7) Basophils # (Auto) 0.0 x10^3/uL (0.0-0.2) Sodium Level 128 mmol/L (136-145) Potassium Level 3.4 mmol/L (3.5-5.1) Chloride Level 98 mmol/L (98-107) Carbon Dioxide Level 26 mmol/L (21-32) Anion Gap 4 (6-14) Blood Urea Nitrogen 6 mg/dL (8-26) Creatinine 1.0 mg/dL (0.7-1.3) Estimated GFR (Cockcroft-Gault) 76.2 Glucose Level 151 mg/dL (70-99) Calcium Level 7.1 mg/dL (8.5-10.1) Glucose (Fingerstick) 135 mg/dL (70-99) 165 mg/dL (70-99) Problem List Problems Medical Problems: (1) Acute kidney injury Status: Acute (2) Encephalopathy Status: Acute (3) Hypoglycemia Status: Acute (4) Hyponatremia Status: Acute (5) Seizure Status: Acute Assessment/Plan cont w/u per GI no surgical plans. Justicifation of Admission Dx: Justifications for Admission: Justification of Admission Dx: Yes Sepsis: Bacteremia Altered Mental Status: Altered Mental Status ROGER BURNS MD Mar 26, 2020 12:36
[2020-03-26 15:08] LABS: CALCIUM 7.1 mg/dL (8.5-10.1); GFR 76.2; POTASSIUM 3.6 mmol/L (3.5-5.1)
[2020-03-26] MEDS: DICLOFENAC SODIUM 1% TOPICAL GEL 100GM TUBE. TP PRN (15:29)
--- NOTE | 2020-03-26 20:30 | NUR ---
Pt. transferred to room 534 from icu. Agree with previous nurses assessment. Pt. calm and alert currently. Will continue to monitor.
[2020-03-26] MEDS: ATORVASTATIN CALCIUM 20 MG TABLET PO SCH (20:55)
[2020-03-26] MEDS: INSULIN GLARGINE SYRINGE. SQ SCH (21:00)
[2020-03-27] VITALS (9 sets, daily range): BP systolic 97–123; BP diastolic 50–72
[2020-03-27] MEDS: fentaNYL PF VIAL 100 MCG/2 ML VIAL IVP PRN (01:39)
[2020-03-27] MEDS: tiZANidine 4 MG TABLET. PO PRN ×3 (01:43→16:24)
[2020-03-27] MEDS: metroNIDAZOLE 500 MG TABLET PO SCH ×3 (05:56→20:40)
[2020-03-27] MEDS: oxyCODONE IR 5 MG TABLET PO PRN ×3 (06:04→20:40)
[2020-03-27 06:39] LABS: ALBUMIN 1.5 g/dL (3.4-5.0); ALBUMIN/GLOBULIN RATIO 0.4 (1.0-1.7); CALCIUM 7.4 mg/dL (8.5-10.1); GFR 76.2; TOTAL BILIRUBIN 0.4 mg/dL (0.2-1.0); TOTAL PROTEIN 5.2 g/dL (6.4-8.2)
[2020-03-27] MEDS: INSULIN LISPRO 300 UNITS/3 ML VIAL. SQ SCH ×4 (07:30→20:47)
--- NOTE | 2020-03-27 07:35 | PDOC ---
Infectious Disease Note Subjective Subjective Feeling better and slept some last pm. Elbow ok His abdominal discomfort left lower quadrant with drain - better No fevers/c/s/n/v/d/soa Mouth is dry and elbow is ok Vital Sign Vital Signs Vital Signs Date Time Temp Pulse Resp B/P (MAP) Pulse Ox O2 Delivery O2 Flow Rate FiO2 03/27/20 06:59 16 Room Air 03/27/20 03:00 97.5 80 123/50 (74) 97 97.5 03/26/20 16:00 92.0 Physical Exam PHYSICAL EXAM GENERAL: Alert, awake, in bed , coop looks comfortable. HEENT: Normocephalic, atraumatic, anicteric. Oral mucosa dry. No thrush. NECK: Supple. Right IJ present - clean LUNGS: Decreased breath sounds at bases. No wheezing. No accessory muscle use. HEART: S1, S2 regular. No murmurs. ABDOMEN: Mildly distended. Bowel sounds present, nontender, no rebound, no guarding. JULIA with serous fluid. Pump clean in LLQ EXTREMITIES: No edema, no cyanosis. Left elbow wound is clean but now open more. NEUROLOGIC: Alert, awake - confused PSYCHIATRIC: Cooperative. SKIN: no rash Labs Lab Laboratory Tests Test 03/26/20 08:11 03/26/20 12:00 03/26/20 14:50 03/26/20 17:02 Glucose (Fingerstick) 135 mg/dL (70-99) 165 mg/dL (70-99) 152 mg/dL (70-99) Sodium Level 129 mmol/L (136-145) Potassium Level 3.6 mmol/L (3.5-5.1) Chloride Level 96 mmol/L (98-107) Carbon Dioxide Level 26 mmol/L (21-32) Anion Gap 7 (6-14) Blood Urea Nitrogen 6 mg/dL (8-26) Creatinine 1.0 mg/dL (0.7-1.3) Estimated GFR (Cockcroft-Gault) 76.2 Glucose Level 133 mg/dL (70-99) Calcium Level 7.1 mg/dL (8.5-10.1) Test 03/26/20 20:36 03/27/20 06:00 Glucose (Fingerstick) 187 mg/dL (70-99) Sodium Level 126 mmol/L (136-145) Potassium Level 4.0 mmol/L (3.5-5.1) Chloride Level 95 mmol/L (98-107) Carbon Dioxide Level 26 mmol/L (21-32) Anion Gap 5 (6-14) Blood Urea Nitrogen 7 mg/dL (8-26) Creatinine 1.0 mg/dL (0.7-1.3) Estimated GFR (Cockcroft-Gault) 76.2 BUN/Creatinine Ratio 7 (6-20) Glucose Level 153 mg/dL (70-99) Calcium Level 7.4 mg/dL (8.5-10.1) Total Bilirubin 0.4 mg/dL (0.2-1.0) Aspartate Amino Transf (AST/SGOT) 14 U/L (15-37) Alanine Aminotransferase (ALT/SGPT) 12 U/L (16-63) Alkaline Phosphatase 102 U/L (46-116) Total Protein 5.2 g/dL (6.4-8.2) Albumin 1.5 g/dL (3.4-5.0) Albumin/Globulin Ratio 0.4 (1.0-1.7) Micro IMPRESSION: Left elbow laceration superficial to the olecranon process with no radiopaque foreign body or acute osseous abnormality Preliminary MANY GRAM NEGATIVE RODS on 03/22/20 at 1118 FINAL ID= [ESCHERICHIA COLI] MANY ANAEROBIC GRAM NEGATIVE RODS on 03/23/20 at 1159 FINAL ID= [BACTEROIDES THETAIOTAOMICRON G] ESCHERICHIA COLI BACTEROIDES THETAIOTAOMICRON G ANTIMICROBIAL SUSCEPTIBILITY Preliminary Comment NEG JUWAN 56 ESCHERICHIA COLI ANTIBIOTIC RESULT INTERPRETATION AMPICILLIN/SULBACTAM 16/8 I AMIKACIN <=16 S AMPICILLIN >16 R AMOXICILLIN/K CLAVULANATE <=8/4 S AZTREONAM <=4 S CEFTRIAXONE <=1 S CEFTAZIDIME <=1 S CEFOTAXIME <=2 S CONTINUED ON NEXT PAGE RUN DATE: 03/23/20 [facility] *LIVE* PAGE 2 RUN TIME: 1204 Specimen Inquiry SPEC: [id number] PATIENT: LASHAY MARQUEZ Mikaela [id number] (Continued) Procedure Result - ANTIMICROBIAL SUSCEPTIBILITY Preliminary (continued) CEFOXITIN <=8 S CIPROFLOXACIN <=0.25 S CEFEPIME <=2 S CEFUROXIME <=4 S CEFTAZIDIME/AVIBACTAM <=4 S ERTAPENEM <=0.5 S GENTAMICIN <=2 S LEVOFLOXACIN <=0.5 S MEROPENEM <=1 S PIPERACILLIN/TAZOBACTAM <=8 S TRIMETHOPRIM/SULFAMETHOXAZOLE >2/ R TETRACYCLINE <=4 S TOBRAMYCIN <=[address] 03/23 Impression: 1. No destructive endplate changes or paravertebral inflammatory process to suggest discitis osteomyelitis although evaluation is limited on noncontrast CT. If persistent clinical concern, MRI can better evaluate. 2. Multilevel lumbar spondylosis with canal narrowing most prominent L2-L3 and L3-L4. 3. Multilevel neural foraminal narrowing most prominent L3-L4 and L4-L5. 4. Moderate right and small left pleural effusion with adjacent atelectasis, increased on the right. 5. Decreased bilateral pulmonary groundglass opacities. Microbiology 03/16/20 Blood Culture - Final, Complete NO GROWTH AFTER 5 DAYS Objective Assessment Transfered to ICU for hyponatremia - now back on floor Leukopenia 1. Severe Sepsis present on admission from gram-negative bacteremia.03/15. 03/16 - neg 2. E Coli bacteremia ? intrabdominal source s/p abscess drain 03/21 - Ecoli 3. Leukocytosis and lactic acidosis.Solumedrol - 03/18/PRBCs - better 4. Anemia, status post PRBC.03/21 and 03/23- bleed scan neg 03/21 5. Hyponatremia. 6. Encephalopathy - resolving, likely metabolic, CT head negative 7. History of renal cancer.S/P Nephrectomy 8. Abnormal LFTs ,Liver mass 9. History of ALLERGIES TO CLINDAMYCIN AND LEVAQUIN. 10. Recent placement of metallic stent 11. Thrombocytopenia - better? Sepsis vs other 12 COVID-19 neg 03/19 13. Back pain - CT without gross findings 14. Left elbow wound - open but clean - Plan Plan of Care Labs not back but clinically better Added Flagyl for Bacteroides 03/24 XRAY L elbow -reviewed Cont Ceftriaxone 03/20 F/u IR cults - F/U AM labs. Anemia per primary Electrolytes per primary Maintain aspiration precaution. Local wound care as directed Discussed with nursing staff DC meropenem 03/18 - 03/20 previous Zosyn 03/17- 03/18. Dose Rocephin 03/16 GRIS CASAS MD Mar 27, 2020 07:35
[2020-03-27] MEDS: IPRATRPIUM/ALBUTEROL 0.5/2.5MG 3 ML NEBU. NEB SCH ×4 (07:46→20:19)
[2020-03-27] MEDS: BUDESONIDE 0.5 MG/2 ML NEBU. NEB SCH ×2 (07:47→20:19)
[2020-03-27 08:07] LABS: BASO # 0.1 x10^3/uL (0.0-0.2); BASO % 1 % (0-3); EOS # 0.1 x10^3/uL (0.0-0.7); EOS % 1 % (0-3); LYMPH # 0.8 x10^3/uL (1.0-4.8); LYMPH % 13 % (24-48); MEAN CORPUSCULAR HEMOGLOBIN 29 pg (25-35); MEAN CORPUSCULAR HGB CONC 35 g/dL (31-37); MEAN CORPUSCULAR VOLUME 85 fL (79-100); MONO # 0.5 x10^3/uL (0.0-1.1); MONO % 9 % (0-9); NEUT # 4.5 x10^3/uL (1.8-7.7); NEUT % 76 % (31-73); PLATELET COUNT 358 x10^3/uL (140-400); RED CELL DISTRIBUTION WIDTH 15.8 % (11.5-14.5); WHITE BLOOD COUNT 5.9 x10^3/uL (4.0-11.0)
[2020-03-27 08:11] LABS: HEMATOCRIT 20.3 % (39.0-53.0)
--- NOTE | 2020-03-27 08:24 | NUR ---
critical Hgb and Hct reported to CYNDIE Jeffrey
[2020-03-27] MEDS: MULTIVITAMIN with MINERAL TABLET. PO SCH (09:11)
[2020-03-27] MEDS: LINAGLIPTIN 5 MG TABLET PO SCH (09:11)
[2020-03-27] MEDS: PANTOPRAZOLE IV PUSH 40 MG VIAL. IVP SCH ×2 (09:11→16:24)
[2020-03-27] MEDS: LACTOBACILLUS RHAMNOSUS GG 1 CAPSULE. PO SCH ×2 (09:11→20:40)
[2020-03-27] MEDS: cefTRIAXone IV Push 2 GM VIAL. IVP SCH (09:11)
[2020-03-27] MEDS: ASCORBIC ACID 500 MG TABLET PO SCH (09:11)
[2020-03-27] MEDS: DULoxetine HCL 30 MG CAPSULE.DR PO SCH ×2 (09:11→20:40)
[2020-03-27] MEDS: amLODIPine BESYLATE 5 MG TABLET PO SCH (09:12)
[2020-03-27] MEDS: MONTELUKAST SODIUM 10 MG TABLET. PO SCH (09:12)
[2020-03-27] MEDS: METOPROLOL TART IMMED RELEASE 25 MG TABLET. PO SCH ×2 (09:13→20:40)
--- NOTE | 2020-03-27 11:22 | PDOC ---
PULMONARY PROGRESS NOTES Subjective alert wants to go home denies sob, cough Vitals Vital Signs Date Time Temp Pulse Resp B/P (MAP) Pulse Ox O2 Delivery O2 Flow Rate FiO2 03/27/20 09:13 96 111/69 03/27/20 08:00 Room Air 92.0 03/27/20 07:59 97.8 18 98 97.8 ROS: No Abdominal Pain General: Alert, No acute distress HEENT: Other (nc at perrl ) Lungs: Clear Cardiovascular: S1, S2 Abdomen: Soft, Other (obese) Neuro Exam: Alert Extremities: Other (1+edema) Skin: Warm Labs Laboratory Tests Test 03/25/20 11:30 03/25/20 16:26 03/25/20 18:00 03/25/20 21:33 Glucose (Fingerstick) 168 mg/dL (70-99) 83 mg/dL (70-99) 187 mg/dL (70-99) Sodium Level 125 mmol/L (136-145) Potassium Level 3.8 mmol/L (3.5-5.1) Chloride Level 95 mmol/L (98-107) Carbon Dioxide Level 25 mmol/L (21-32) Anion Gap 5 (6-14) Blood Urea Nitrogen 6 mg/dL (8-26) Creatinine 0.9 mg/dL (0.7-1.3) Estimated GFR (Cockcroft-Gault) 86.1 Glucose Level 129 mg/dL (70-99) Calcium Level 7.2 mg/dL (8.5-10.1) Test 03/26/20 00:30 03/26/20 05:30 03/26/20 08:11 03/26/20 12:00 Sodium Level 127 mmol/L (136-145) 128 mmol/L (136-145) Potassium Level 3.8 mmol/L (3.5-5.1) 3.4 mmol/L (3.5-5.1) Chloride Level 96 mmol/L (98-107) 98 mmol/L (98-107) Carbon Dioxide Level 25 mmol/L (21-32) 26 mmol/L (21-32) Anion Gap 6 (6-14) 4 (6-14) Blood Urea Nitrogen 6 mg/dL (8-26) 6 mg/dL (8-26) Creatinine 1.0 mg/dL (0.7-1.3) 1.0 mg/dL (0.7-1.3) Estimated GFR (Cockcroft-Gault) 76.2 76.2 Glucose Level 137 mg/dL (70-99) 151 mg/dL (70-99) Calcium Level 7.2 mg/dL (8.5-10.1) 7.1 mg/dL (8.5-10.1) White Blood Count 3.7 x10^3/uL (4.0-11.0) Red Blood Count 3.59 x10^6/uL (4.30-5.70) Hemoglobin 10.5 g/dL (13.0-17.5) Hematocrit 30.5 % (39.0-53.0) Mean Corpuscular Volume 85 fL (79-100) Mean Corpuscular Hemoglobin 29 pg (25-35) Mean Corpuscular Hemoglobin Concent 34 g/dL (31-37) Red Cell Distribution Width 15.8 % (11.5-14.5) Platelet Count 245 x10^3/uL (140-400) Neutrophils (%) (Auto) 80 % (31-73) Lymphocytes (%) (Auto) 10 % (24-48) Monocytes (%) (Auto) 9 % (0-9) Eosinophils (%) (Auto) 1 % (0-3) Basophils (%) (Auto) 1 % (0-3) Neutrophils # (Auto) 3.0 x10^3/uL (1.8-7.7) Lymphocytes # (Auto) 0.4 x10^3/uL (1.0-4.8) Monocytes # (Auto) 0.4 x10^3/uL (0.0-1.1) Eosinophils # (Auto) 0.0 x10^3/uL (0.0-0.7) Basophils # (Auto) 0.0 x10^3/uL (0.0-0.2) Glucose (Fingerstick) 135 mg/dL (70-99) 165 mg/dL (70-99) Test 03/26/20 14:50 03/26/20 17:02 03/26/20 20:36 03/27/20 06:00 Sodium Level 129 mmol/L (136-145) 126 mmol/L (136-145) Potassium Level 3.6 mmol/L (3.5-5.1) 4.0 mmol/L (3.5-5.1) Chloride Level 96 mmol/L (98-107) 95 mmol/L (98-107) Carbon Dioxide Level 26 mmol/L (21-32) 26 mmol/L (21-32) Anion Gap 7 (6-14) 5 (6-14) Blood Urea Nitrogen 6 mg/dL (8-26) 7 mg/dL (8-26) Creatinine 1.0 mg/dL (0.7-1.3) 1.0 mg/dL (0.7-1.3) Estimated GFR (Cockcroft-Gault) 76.2 76.2 Glucose Level 133 mg/dL (70-99) 153 mg/dL (70-99) Calcium Level 7.1 mg/dL (8.5-10.1) 7.4 mg/dL (8.5-10.1) Glucose (Fingerstick) 152 mg/dL (70-99) 187 mg/dL (70-99) BUN/Creatinine Ratio 7 (6-20) Total Bilirubin 0.4 mg/dL (0.2-1.0) Aspartate Amino Transf (AST/SGOT) 14 U/L (15-37) Alanine Aminotransferase (ALT/SGPT) 12 U/L (16-63) Alkaline Phosphatase 102 U/L (46-116) Total Protein 5.2 g/dL (6.4-8.2) Albumin 1.5 g/dL (3.4-5.0) Albumin/Globulin Ratio 0.4 (1.0-1.7) Test 03/27/20 07:45 White Blood Count 5.9 x10^3/uL (4.0-11.0) Red Blood Count 2.40 x10^6/uL (4.30-5.70) Hemoglobin 7.0 g/dL (13.0-17.5) Hematocrit 20.3 % (39.0-53.0) Mean Corpuscular Volume 85 fL (79-100) Mean Corpuscular Hemoglobin 29 pg (25-35) Mean Corpuscular Hemoglobin Concent 35 g/dL (31-37) Red Cell Distribution Width 15.8 % (11.5-14.5) Platelet Count 358 x10^3/uL (140-400) Neutrophils (%) (Auto) 76 % (31-73) Lymphocytes (%) (Auto) 13 % (24-48) Monocytes (%) (Auto) 9 % (0-9) Eosinophils (%) (Auto) 1 % (0-3) Basophils (%) (Auto) 1 % (0-3) Neutrophils # (Auto) 4.5 x10^3/uL (1.8-7.7) Lymphocytes # (Auto) 0.8 x10^3/uL (1.0-4.8) Monocytes # (Auto) 0.5 x10^3/uL (0.0-1.1) Eosinophils # (Auto) 0.1 x10^3/uL (0.0-0.7) Basophils # (Auto) 0.1 x10^3/uL (0.0-0.2) Laboratory Tests Test 03/26/20 12:00 03/26/20 14:50 03/26/20 17:02 03/26/20 20:36 Glucose (Fingerstick) 165 mg/dL (70-99) 152 mg/dL (70-99) 187 mg/dL (70-99) Sodium Level 129 mmol/L (136-145) Potassium Level 3.6 mmol/L (3.5-5.1) Chloride Level 96 mmol/L (98-107) Carbon Dioxide Level 26 mmol/L (21-32) Anion Gap 7 (6-14) Blood Urea Nitrogen 6 mg/dL (8-26) Creatinine 1.0 mg/dL (0.7-1.3) Estimated GFR (Cockcroft-Gault) 76.2 Glucose Level 133 mg/dL (70-99) Calcium Level 7.1 mg/dL (8.5-10.1) Test 03/27/20 06:00 03/27/20 07:45 Sodium Level 126 mmol/L (136-145) Potassium Level 4.0 mmol/L (3.5-5.1) Chloride Level 95 mmol/L (98-107) Carbon Dioxide Level 26 mmol/L (21-32) Anion Gap 5 (6-14) Blood Urea Nitrogen 7 mg/dL (8-26) Creatinine 1.0 mg/dL (0.7-1.3) Estimated GFR (Cockcroft-Gault) 76.2 BUN/Creatinine Ratio 7 (6-20) Glucose Level 153 mg/dL (70-99) Calcium Level 7.4 mg/dL (8.5-10.1) Total Bilirubin 0.4 mg/dL (0.2-1.0) Aspartate Amino Transf (AST/SGOT) 14 U/L (15-37) Alanine Aminotransferase (ALT/SGPT) 12 U/L (16-63) Alkaline Phosphatase 102 U/L (46-116) Total Protein 5.2 g/dL (6.4-8.2) Albumin 1.5 g/dL (3.4-5.0) Albumin/Globulin Ratio 0.4 (1.0-1.7) White Blood Count 5.9 x10^3/uL (4.0-11.0) Red Blood Count 2.40 x10^6/uL (4.30-5.70) Hemoglobin 7.0 g/dL (13.0-17.5) Hematocrit 20.3 % (39.0-53.0) Mean Corpuscular Volume 85 fL (79-100) Mean Corpuscular Hemoglobin 29 pg (25-35) Mean Corpuscular Hemoglobin Concent 35 g/dL (31-37) Red Cell Distribution Width 15.8 % (11.5-14.5) Platelet Count 358 x10^3/uL (140-400) Neutrophils (%) (Auto) 76 % (31-73) Lymphocytes (%) (Auto) 13 % (24-48) Monocytes (%) (Auto) 9 % (0-9) Eosinophils (%) (Auto) 1 % (0-3) Basophils (%) (Auto) 1 % (0-3) Neutrophils # (Auto) 4.5 x10^3/uL (1.8-7.7) Lymphocytes # (Auto) 0.8 x10^3/uL (1.0-4.8) Monocytes # (Auto) 0.5 x10^3/uL (0.0-1.1) Eosinophils # (Auto) 0.1 x10^3/uL (0.0-0.7) Basophils # (Auto) 0.1 x10^3/uL (0.0-0.2) Medications Active Scripts Medications Dose Route/Sig Max Daily Dose Days Date Category Dose Instructions Etodolac 400 Mg Tablet 1 Tab PO BID 03/16/20 Reported Ondansetron Hcl 8 Mg Tablet 8 Mg PO BID PRN 03/16/20 Reported Oxycodone Hcl Immed.release (Oxycodone Hcl) 15 Mg Tablet 15 Mg PO PRN Q6HRS PRN 03/16/20 Reported Miralax (Polyethylene Glycol 3350) 17 Gm Powd.pack 1 Pkt PO PRN DAILY PRN 04/17/18 Rx Montelukast Sodium Tablet (Montelukast Sodium) 10 Mg Tablet 10 Mg PO DAILY 04/14/18 Reported Basaglar Kwikpen U-100 (Insulin Glargine,Hum.rec.anlog) 100 Unit/1 Ml Insuln.pen 50 Unit SQ HS 04/14/18 Reported Prilosec Otc (Omeprazole Magnesium) 20 Mg Tablet.dr 1 Tab PO DAILY 02/08/16 Reported Novolog Flexpen (Insulin Aspart) 100 Unit/1 Ml Insuln.pen 1 Unit SQ 11/17/15 Reported 15-20 UNITS WITH MEALS TO MAX OF 80 UNITS DAILY Atorvastatin Calcium 20 Mg Tablet 1 Tab PO DAILY 11/17/15 Reported Januvia (Sitagliptin Phosphate) 50 Mg Tablet 1 Tab PO DAILY 11/17/15 Reported Tizanidine Hcl 4 Mg Tablet 1 Tab PO Q6HRS PRN 11/17/15 Reported can have 1-2 tabs Lidoderm (Lidocaine) 700 Mg Adh..patch 1 Patch TP DAILY PRN 11/17/15 Reported Ativan (Lorazepam) 1 Mg Tablet 1 Mg PO BID PRN 11/17/15 Reported Amlodipine Besylate 10 Mg Tablet 10 Mg PO DAILY 11/17/15 Reported Atenolol 25 Mg Tablet 1 Tab PO DAILY 11/17/15 Reported Voltaren (Diclofenac Sodium) 100 Gm Gel..gram. 1 Gm TP QID PRN 11/17/15 Reported Ventolin Hfa Inhaler (Albuterol Sulfate) 18 Gm Hfa.aer.ad 2 Puff IH PRN Q4-6HRS 11/17/15 Reported Cymbalta (Duloxetine Hcl) 60 Mg Capsule.dr 60 Mg PO BID 11/17/15 Reported Impression . 1. Acute respiratory failure with audible upper airway wheezing 03/19 resolved . Could be related to reactive airway disease. The patient has no known asthma. Possibility of vocal cord dysfunction secondary to anxiety would also be a consideration. No recurrence and resolved 2. Anemia, status post transfusion.on going GI bleed-- improved 3. Hypoglycemic encephalopathy, present on admission , improved 4. Chronic kidney disease. hypo Na 5. Abnormal ct chest with basal atelectasis/ vs pneumonia 6. Liver abscess. s/p drain 7. E Coli bacteremia likely intrabdominal source s/p abscess drain 03/21 - Ecoli 8. Abnormal D-Dimer , could be related to Liver abscess . on RA. no suspicion for PE, Neg dopplers 9. ?richie Plan . 1. from pulmonary standpoint stable 2. off Nasal canula, off BIPAP-- remains on room air 3. continue DuoNebs. 4. Pulmicort nebulizer. 5. Follow GI recs 6. Continue antibiotics per ID 7. s/p liver aspiration. 8. dopplers lower extremity neg 9. now on lasix prn per nephro 10. psg as out pt D/W RN and RT JEAN CLAUDE SHERIFF MD Mar 27, 2020 11:22
[2020-03-27 11:58] LABS: RED BLOOD COUNT 2.42 x10^6/uL (4.30-5.70); RED CELL DISTRIBUTION WIDTH 15.9 % (11.5-14.5); WHITE BLOOD COUNT 6.1 x10^3/uL (4.0-11.0)
[2020-03-27 12:07] LABS: HEMATOCRIT 20.6 % (39.0-53.0); HEMOGLOBIN 6.9 g/dL (13.0-17.5)
--- NOTE | 2020-03-27 12:07 | NUR ---
critical Hgb and Hct reported to CYNDIE Jeffrey
--- NOTE | 2020-03-27 12:20 | PDOC ---
Renal-Progress Notes Subjective Notes Notes SLIGHT CONFUSION History of Present Illness Hx of present illness NO CHANGE Vitals Vitals Vital Signs Date Time Temp Pulse Resp B/P (MAP) Pulse Ox O2 Delivery O2 Flow Rate FiO2 03/27/20 11:39 Room Air 03/27/20 09:13 96 111/69 03/27/20 08:00 92.0 03/27/20 07:59 97.8 18 98 97.8 Weight Weight [ ] I.O. Intake and Output Intake and Output 03/27/20 07:00 Intake Total 601 ml Output Total 1320 ml Balance -719 ml Intake Oral 601 ml Output Urine Total 1300 ml Drainage Total 20 ml # Voids 3 # Bowel Movements 1 Labs Labs Laboratory Tests Test 03/26/20 14:50 03/26/20 17:02 03/26/20 20:36 03/27/20 06:00 Sodium Level 129 mmol/L (136-145) 126 mmol/L (136-145) Potassium Level 3.6 mmol/L (3.5-5.1) 4.0 mmol/L (3.5-5.1) Chloride Level 96 mmol/L (98-107) 95 mmol/L (98-107) Carbon Dioxide Level 26 mmol/L (21-32) 26 mmol/L (21-32) Anion Gap 7 (6-14) 5 (6-14) Blood Urea Nitrogen 6 mg/dL (8-26) 7 mg/dL (8-26) Creatinine 1.0 mg/dL (0.7-1.3) 1.0 mg/dL (0.7-1.3) Estimated GFR (Cockcroft-Gault) 76.2 76.2 Glucose Level 133 mg/dL (70-99) 153 mg/dL (70-99) Calcium Level 7.1 mg/dL (8.5-10.1) 7.4 mg/dL (8.5-10.1) Glucose (Fingerstick) 152 mg/dL (70-99) 187 mg/dL (70-99) BUN/Creatinine Ratio 7 (6-20) Total Bilirubin 0.4 mg/dL (0.2-1.0) Aspartate Amino Transf (AST/SGOT) 14 U/L (15-37) Alanine Aminotransferase (ALT/SGPT) 12 U/L (16-63) Alkaline Phosphatase 102 U/L (46-116) Total Protein 5.2 g/dL (6.4-8.2) Albumin 1.5 g/dL (3.4-5.0) Albumin/Globulin Ratio 0.4 (1.0-1.7) Test 03/27/20 07:45 03/27/20 11:30 03/27/20 12:17 White Blood Count 5.9 x10^3/uL (4.0-11.0) 6.1 x10^3/uL (4.0-11.0) Red Blood Count 2.40 x10^6/uL (4.30-5.70) 2.42 x10^6/uL (4.30-5.70) Hemoglobin 7.0 g/dL (13.0-17.5) 6.9 g/dL (13.0-17.5) Hematocrit 20.3 % (39.0-53.0) 20.6 % (39.0-53.0) Mean Corpuscular Volume 85 fL (79-100) 85 fL (79-100) Mean Corpuscular Hemoglobin 29 pg (25-35) 29 pg (25-35) Mean Corpuscular Hemoglobin Concent 35 g/dL (31-37) 34 g/dL (31-37) Red Cell Distribution Width 15.8 % (11.5-14.5) 15.9 % (11.5-14.5) Platelet Count 358 x10^3/uL (140-400) 372 x10^3/uL (140-400) Neutrophils (%) (Auto) 76 % (31-73) Lymphocytes (%) (Auto) 13 % (24-48) Monocytes (%) (Auto) 9 % (0-9) Eosinophils (%) (Auto) 1 % (0-3) Basophils (%) (Auto) 1 % (0-3) Neutrophils # (Auto) 4.5 x10^3/uL (1.8-7.7) Lymphocytes # (Auto) 0.8 x10^3/uL (1.0-4.8) Monocytes # (Auto) 0.5 x10^3/uL (0.0-1.1) Eosinophils # (Auto) 0.1 x10^3/uL (0.0-0.7) Basophils # (Auto) 0.1 x10^3/uL (0.0-0.2) Glucose (Fingerstick) 174 mg/dL (70-99) Micro Micro Microbiology 03/21/20 AFB Specimen Processing Tissue - Final, Resulted 03/21/20 Acid Fast Bacilli Culture, Resulted Pending 03/21/20 Gram Stain - Final, Resulted 03/21/20 Fungal Culture, Resulted Pending 03/21/20 Fungal Culture Result 1, Resulted Pending 03/16/20 Blood Culture - Final, Complete NO GROWTH AFTER 5 DAYS Review of Systems Constitutional: yes: other (CONFUSED) Physical Exam General Appearance: no apparent distress Skin: warm Respiratory: bilateral CTA Heart: S1S2, RRR Abdomen: soft, bowel sounds present Genitourinary: bladder flat Extremities: pulses present Neurology: alert, confused Musculoskeletal: Osteoarthritis, Other (cervical stenosis; chronic opioid use) Assessment Assessment IMP HYPONATREMIA-PROB SIADH DUE TO MEDS-NA OF 126 COLBY RESOLVED CKD STAGE 3 WITH CR AT BASELINE ANEMIA LOW MAG-CORRECTED HYPOGLYCEMIA MET ENCEPHALOPATHY LEUCOCYTOSIS MALNUTRITION LIVER ABSCESS-S/P DRAIN PLAN OFF 3% SALINE PROTOCOL IV LASIX PRN CHECK TSH OFF PAIN MEDS HERNANDEZ OUT ENC PO REPEAT LABS IN AM WILL FOLLOW NADIR REILLY MD Mar 27, 2020 12:20
--- NOTE | 2020-03-27 12:20 | PDOC ---
[facility] [facility] PROGRESS NOTE Chief Complaint Chief Complaint GI BLEED - stable Hyponatremiacontinue with 3% saline in the ICU Hepatic mass s/p IR biliary drainpending cultures History of renal cell carcinoma Recent placement of percutaneous biliary drain for hepatic abscess Severe sepsis Gram negative bacteremiacontinue ceftriaxone acute METABOLIC ENCEPHALOPATHY - waxing and waning. Dementia prevention protocol discussed with the RN. COPD - will cont home nebs Normocytic anemia with GI bleed PUD: prepyloric ulcers via EGD 03/10/2020 Biliary stent and mild pneumobilia seen previously. CKD STAGE 3 with Cr 1.6-2.0 // baseline Liver biopsy 2009 from LEFT lobe of liver during w/u of renal cancer; cavernous hemangioma. 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 She notes he has had a progressive decline over the last month or so. Patient is encephalopathic and unable to answer questions. Patient given glucagon prior to arrival and blood sugar improved from 55-83. notes issues w/ confusion since cholecystectomy at on 12/25/19. notes an IR drain was placed after a readmission for worsening and remained in place for 3 weeks and was removed at the end of January, then he returned for common bile duct stent placement last week. She notes that she was told that he had a "small spot" on his liver at [facility] and that his sodium was "better" at 129 last week. She also notes he has lost 46# in the past 2 months and she is not aware of any diagnosis for him. Patient is not even speaking, he is moaning and writhing in bed. Has been tested 3x for covid 19 and negative with last check over a week ago. CXR with pulmonary vasculare congestion and CT head negative for acute process. Labs significant for WBC 17.2, Hb 8.2, platelets 244, INR 1.3, Na 123, K 4.7, BUN 49, Cr 3.4, Albumin 1.7, Glucose 97, Mg 1.7, AST 84, ALT 66, Alk phos 228, Bili 1.2. BNP [id number] Admitted to ICU for further care. 03/26/2020 No acute events overnight. Patient has some delirium this morning. With agitation required IV Haldol. Patient is currently oriented and conversing appropriately. Patient's chart, labs, images were reviewed and discussed with RN 03/25/2020 No acute events overnight. Patient's mental status is stable. Patient's chart, labs, images were reviewed and discussed with RN 03/23, need try to transfer to [facility] soon, hgb drop again today, 1 u PRBC ordered, GI and surg following discussed abx with ID, following he is weak, not eating much, DNR reviewed, 03/24, hgb better ID changing abx cultures pending PULM following, needs LTAC likely consider tomorrow Vitals/I&O Vitals/I&O: Vital Signs Date Time Temp Pulse Resp B/P (MAP) Pulse Ox O2 Delivery O2 Flow Rate FiO2 03/27/20 11:39 Room Air 03/27/20 09:13 96 111/69 03/27/20 08:00 92.0 03/27/20 07:59 97.8 18 98 97.8 I & O 03/26/20 03/26/20 03/27/20 15:00 23:00 07:00 Intake Total 120 ml 481 ml Output Total 600 ml 315 ml 405 ml Balance -600 ml -195 ml 76 ml Physical Exam Physical Exam: GENERAL: Alert, awake, in bed , coop looks comfortable. HEENT: Normocephalic, atraumatic, anicteric. Oral mucosa dry. No thrush. NECK: Supple. Right IJ present - clean LUNGS: Decreased breath sounds at bases. No wheezing. No accessory muscle use. HEART: S1, S2 regular. No murmurs. ABDOMEN: Mildly distended. Bowel sounds present, nontender, no rebound, no guarding. JULIA with serous fluid. Pump clean in LLQ EXTREMITIES: No edema, no cyanosis. Left elbow wound is clean but now open more. NEUROLOGIC: Alert, awake - confused PSYCHIATRIC: Cooperative. SKIN: no rash General: Alert, Oriented X3, No acute distress Heart: Regular rate Lungs: Clear Abdomen: Soft, No tenderness Extremities: No edema Skin: No significant lesion Labs Labs: Laboratory Tests Test 03/26/20 14:50 03/26/20 17:02 03/26/20 20:36 03/27/20 06:00 Sodium Level 129 mmol/L (136-145) 126 mmol/L (136-145) Potassium Level 3.6 mmol/L (3.5-5.1) 4.0 mmol/L (3.5-5.1) Chloride Level 96 mmol/L (98-107) 95 mmol/L (98-107) Carbon Dioxide Level 26 mmol/L (21-32) 26 mmol/L (21-32) Anion Gap 7 (6-14) 5 (6-14) Blood Urea Nitrogen 6 mg/dL (8-26) 7 mg/dL (8-26) Creatinine 1.0 mg/dL (0.7-1.3) 1.0 mg/dL (0.7-1.3) Estimated GFR (Cockcroft-Gault) 76.2 76.2 Glucose Level 133 mg/dL (70-99) 153 mg/dL (70-99) Calcium Level 7.1 mg/dL (8.5-10.1) 7.4 mg/dL (8.5-10.1) Glucose (Fingerstick) 152 mg/dL (70-99) 187 mg/dL (70-99) BUN/Creatinine Ratio 7 (6-20) Total Bilirubin 0.4 mg/dL (0.2-1.0) Aspartate Amino Transf (AST/SGOT) 14 U/L (15-37) Alanine Aminotransferase (ALT/SGPT) 12 U/L (16-63) Alkaline Phosphatase 102 U/L (46-116) Total Protein 5.2 g/dL (6.4-8.2) Albumin 1.5 g/dL (3.4-5.0) Albumin/Globulin Ratio 0.4 (1.0-1.7) Test 03/27/20 07:45 03/27/20 11:30 White Blood Count 5.9 x10^3/uL (4.0-11.0) 6.1 x10^3/uL (4.0-11.0) Red Blood Count 2.40 x10^6/uL (4.30-5.70) 2.42 x10^6/uL (4.30-5.70) Hemoglobin 7.0 g/dL (13.0-17.5) 6.9 g/dL (13.0-17.5) Hematocrit 20.3 % (39.0-53.0) 20.6 % (39.0-53.0) Mean Corpuscular Volume 85 fL (79-100) 85 fL (79-100) Mean Corpuscular Hemoglobin 29 pg (25-35) 29 pg (25-35) Mean Corpuscular Hemoglobin Concent 35 g/dL (31-37) 34 g/dL (31-37) Red Cell Distribution Width 15.8 % (11.5-14.5) 15.9 % (11.5-14.5) Platelet Count 358 x10^3/uL (140-400) 372 x10^3/uL (140-400) Neutrophils (%) (Auto) 76 % (31-73) Lymphocytes (%) (Auto) 13 % (24-48) Monocytes (%) (Auto) 9 % (0-9) Eosinophils (%) (Auto) 1 % (0-3) Basophils (%) (Auto) 1 % (0-3) Neutrophils # (Auto) 4.5 x10^3/uL (1.8-7.7) Lymphocytes # (Auto) 0.8 x10^3/uL (1.0-4.8) Monocytes # (Auto) 0.5 x10^3/uL (0.0-1.1) Eosinophils # (Auto) 0.1 x10^3/uL (0.0-0.7) Basophils # (Auto) 0.1 x10^3/uL (0.0-0.2) Assessment and Plan Assessmemt and Plan Problems Medical Problems: (1) Acute kidney injury Status: Acute (2) Encephalopathy Status: Acute (3) Hypoglycemia Status: Acute (4) Hyponatremia Status: Acute (5) Seizure Status: Acute Assessment GI BLEED - stable Hyponatremiacontinue with 3% saline in the ICU Hepatic mass s/p IR biliary drainpending cultures History of renal cell carcinoma Recent placement of percutaneous biliary drain for hepatic abscess Severe sepsis Gram negative bacteremiacontinue ceftriaxone acute METABOLIC ENCEPHALOPATHY - waxing and waning. Dementia prevention protocol discussed with the RN. COPD - will cont home nebs Normocytic anemia with GI bleed PUD: prepyloric ulcers via EGD 03/10/2020 Biliary stent and mild pneumobilia seen previously. CKD STAGE 3 with Cr 1.6-2.0 // baseline Liver biopsy 2009 from LEFT lobe of liver during w/u of renal cancer; cavernous hemangioma. Acute diastolic CHF with pleural effusioncontinue metoprolol per cardiology Chronic pain - increased fentanyl to 25mcg q1h PRN Plan 1 unit RBC & monitor Hgb/Hct Appreciate subspecialist input DVT prophylaxis Trend labs Home Meds IV antibiotics Comment Review of Relevant I have reviewed the following items clarisse (where applicable) has been applied. Medications: Current Medications Medications (Trade) Dose Ordered Sig/Tory Route PRN Reason Start Time Stop Time Status Last Admin Dose Admin Amlodipine Besylate (Norvasc) 5 mg DAILY PO 03/27/20 09:00 03/27/20 09:12 Justicifation of Admission Dx: Justifications for Admission: Justification of Admission Dx: Yes Sepsis: Bacteremia Altered Mental Status: Altered Mental Status JACEY VALIENTE III DO Mar 27, 2020 12:20
--- NOTE | 2020-03-27 12:57 | PDOC ---
G I PROGRESS NOTE Subjective Complains of back pain mostly. Had a brown stool. Physical Exam Lungs clear. RRR Abdomen soft. Drain with purulent drainage. Review of Relevant I have reviewed the following items clarisse (where applicable) has been applied. Labs Laboratory Tests Test 03/25/20 16:26 03/25/20 18:00 03/25/20 21:33 03/26/20 00:30 Glucose (Fingerstick) 83 mg/dL (70-99) 187 mg/dL (70-99) Sodium Level 125 mmol/L (136-145) 127 mmol/L (136-145) Potassium Level 3.8 mmol/L (3.5-5.1) 3.8 mmol/L (3.5-5.1) Chloride Level 95 mmol/L (98-107) 96 mmol/L (98-107) Carbon Dioxide Level 25 mmol/L (21-32) 25 mmol/L (21-32) Anion Gap 5 (6-14) 6 (6-14) Blood Urea Nitrogen 6 mg/dL (8-26) 6 mg/dL (8-26) Creatinine 0.9 mg/dL (0.7-1.3) 1.0 mg/dL (0.7-1.3) Estimated GFR (Cockcroft-Gault) 86.1 76.2 Glucose Level 129 mg/dL (70-99) 137 mg/dL (70-99) Calcium Level 7.2 mg/dL (8.5-10.1) 7.2 mg/dL (8.5-10.1) Test 03/26/20 05:30 03/26/20 08:11 03/26/20 12:00 03/26/20 14:50 White Blood Count 3.7 x10^3/uL (4.0-11.0) Red Blood Count 3.59 x10^6/uL (4.30-5.70) Hemoglobin 10.5 g/dL (13.0-17.5) Hematocrit 30.5 % (39.0-53.0) Mean Corpuscular Volume 85 fL (79-100) Mean Corpuscular Hemoglobin 29 pg (25-35) Mean Corpuscular Hemoglobin Concent 34 g/dL (31-37) Red Cell Distribution Width 15.8 % (11.5-14.5) Platelet Count 245 x10^3/uL (140-400) Neutrophils (%) (Auto) 80 % (31-73) Lymphocytes (%) (Auto) 10 % (24-48) Monocytes (%) (Auto) 9 % (0-9) Eosinophils (%) (Auto) 1 % (0-3) Basophils (%) (Auto) 1 % (0-3) Neutrophils # (Auto) 3.0 x10^3/uL (1.8-7.7) Lymphocytes # (Auto) 0.4 x10^3/uL (1.0-4.8) Monocytes # (Auto) 0.4 x10^3/uL (0.0-1.1) Eosinophils # (Auto) 0.0 x10^3/uL (0.0-0.7) Basophils # (Auto) 0.0 x10^3/uL (0.0-0.2) Sodium Level 128 mmol/L (136-145) 129 mmol/L (136-145) Potassium Level 3.4 mmol/L (3.5-5.1) 3.6 mmol/L (3.5-5.1) Chloride Level 98 mmol/L (98-107) 96 mmol/L (98-107) Carbon Dioxide Level 26 mmol/L (21-32) 26 mmol/L (21-32) Anion Gap 4 (6-14) 7 (6-14) Blood Urea Nitrogen 6 mg/dL (8-26) 6 mg/dL (8-26) Creatinine 1.0 mg/dL (0.7-1.3) 1.0 mg/dL (0.7-1.3) Estimated GFR (Cockcroft-Gault) 76.2 76.2 Glucose Level 151 mg/dL (70-99) 133 mg/dL (70-99) Calcium Level 7.1 mg/dL (8.5-10.1) 7.1 mg/dL (8.5-10.1) Glucose (Fingerstick) 135 mg/dL (70-99) 165 mg/dL (70-99) Test 03/26/20 17:02 03/26/20 20:36 03/27/20 06:00 03/27/20 07:45 Glucose (Fingerstick) 152 mg/dL (70-99) 187 mg/dL (70-99) Sodium Level 126 mmol/L (136-145) Potassium Level 4.0 mmol/L (3.5-5.1) Chloride Level 95 mmol/L (98-107) Carbon Dioxide Level 26 mmol/L (21-32) Anion Gap 5 (6-14) Blood Urea Nitrogen 7 mg/dL (8-26) Creatinine 1.0 mg/dL (0.7-1.3) Estimated GFR (Cockcroft-Gault) 76.2 BUN/Creatinine Ratio 7 (6-20) Glucose Level 153 mg/dL (70-99) Calcium Level 7.4 mg/dL (8.5-10.1) Total Bilirubin 0.4 mg/dL (0.2-1.0) Aspartate Amino Transf (AST/SGOT) 14 U/L (15-37) Alanine Aminotransferase (ALT/SGPT) 12 U/L (16-63) Alkaline Phosphatase 102 U/L (46-116) Total Protein 5.2 g/dL (6.4-8.2) Albumin 1.5 g/dL (3.4-5.0) Albumin/Globulin Ratio 0.4 (1.0-1.7) White Blood Count 5.9 x10^3/uL (4.0-11.0) Red Blood Count 2.40 x10^6/uL (4.30-5.70) Hemoglobin 7.0 g/dL (13.0-17.5) Hematocrit 20.3 % (39.0-53.0) Mean Corpuscular Volume 85 fL (79-100) Mean Corpuscular Hemoglobin 29 pg (25-35) Mean Corpuscular Hemoglobin Concent 35 g/dL (31-37) Red Cell Distribution Width 15.8 % (11.5-14.5) Platelet Count 358 x10^3/uL (140-400) Neutrophils (%) (Auto) 76 % (31-73) Lymphocytes (%) (Auto) 13 % (24-48) Monocytes (%) (Auto) 9 % (0-9) Eosinophils (%) (Auto) 1 % (0-3) Basophils (%) (Auto) 1 % (0-3) Neutrophils # (Auto) 4.5 x10^3/uL (1.8-7.7) Lymphocytes # (Auto) 0.8 x10^3/uL (1.0-4.8) Monocytes # (Auto) 0.5 x10^3/uL (0.0-1.1) Eosinophils # (Auto) 0.1 x10^3/uL (0.0-0.7) Basophils # (Auto) 0.1 x10^3/uL (0.0-0.2) Test 03/27/20 11:30 03/27/20 12:17 White Blood Count 6.1 x10^3/uL (4.0-11.0) Red Blood Count 2.42 x10^6/uL (4.30-5.70) Hemoglobin 6.9 g/dL (13.0-17.5) Hematocrit 20.6 % (39.0-53.0) Mean Corpuscular Volume 85 fL (79-100) Mean Corpuscular Hemoglobin 29 pg (25-35) Mean Corpuscular Hemoglobin Concent 34 g/dL (31-37) Red Cell Distribution Width 15.9 % (11.5-14.5) Platelet Count 372 x10^3/uL (140-400) Glucose (Fingerstick) 174 mg/dL (70-99) Laboratory Tests Test 03/26/20 14:50 03/26/20 17:02 03/26/20 20:36 03/27/20 06:00 Sodium Level 129 mmol/L (136-145) 126 mmol/L (136-145) Potassium Level 3.6 mmol/L (3.5-5.1) 4.0 mmol/L (3.5-5.1) Chloride Level 96 mmol/L (98-107) 95 mmol/L (98-107) Carbon Dioxide Level 26 mmol/L (21-32) 26 mmol/L (21-32) Anion Gap 7 (6-14) 5 (6-14) Blood Urea Nitrogen 6 mg/dL (8-26) 7 mg/dL (8-26) Creatinine 1.0 mg/dL (0.7-1.3) 1.0 mg/dL (0.7-1.3) Estimated GFR (Cockcroft-Gault) 76.2 76.2 Glucose Level 133 mg/dL (70-99) 153 mg/dL (70-99) Calcium Level 7.1 mg/dL (8.5-10.1) 7.4 mg/dL (8.5-10.1) Glucose (Fingerstick) 152 mg/dL (70-99) 187 mg/dL (70-99) BUN/Creatinine Ratio 7 (6-20) Total Bilirubin 0.4 mg/dL (0.2-1.0) Aspartate Amino Transf (AST/SGOT) 14 U/L (15-37) Alanine Aminotransferase (ALT/SGPT) 12 U/L (16-63) Alkaline Phosphatase 102 U/L (46-116) Total Protein 5.2 g/dL (6.4-8.2) Albumin 1.5 g/dL (3.4-5.0) Albumin/Globulin Ratio 0.4 (1.0-1.7) Test 03/27/20 07:45 03/27/20 11:30 03/27/20 12:17 White Blood Count 5.9 x10^3/uL (4.0-11.0) 6.1 x10^3/uL (4.0-11.0) Red Blood Count 2.40 x10^6/uL (4.30-5.70) 2.42 x10^6/uL (4.30-5.70) Hemoglobin 7.0 g/dL (13.0-17.5) 6.9 g/dL (13.0-17.5) Hematocrit 20.3 % (39.0-53.0) 20.6 % (39.0-53.0) Mean Corpuscular Volume 85 fL (79-100) 85 fL (79-100) Mean Corpuscular Hemoglobin 29 pg (25-35) 29 pg (25-35) Mean Corpuscular Hemoglobin Concent 35 g/dL (31-37) 34 g/dL (31-37) Red Cell Distribution Width 15.8 % (11.5-14.5) 15.9 % (11.5-14.5) Platelet Count 358 x10^3/uL (140-400) 372 x10^3/uL (140-400) Neutrophils (%) (Auto) 76 % (31-73) Lymphocytes (%) (Auto) 13 % (24-48) Monocytes (%) (Auto) 9 % (0-9) Eosinophils (%) (Auto) 1 % (0-3) Basophils (%) (Auto) 1 % (0-3) Neutrophils # (Auto) 4.5 x10^3/uL (1.8-7.7) Lymphocytes # (Auto) 0.8 x10^3/uL (1.0-4.8) Monocytes # (Auto) 0.5 x10^3/uL (0.0-1.1) Eosinophils # (Auto) 0.1 x10^3/uL (0.0-0.7) Basophils # (Auto) 0.1 x10^3/uL (0.0-0.2) Glucose (Fingerstick) 174 mg/dL (70-99) Microbiology 03/21/20 AFB Specimen Processing Tissue - Final, Resulted 03/21/20 Acid Fast Bacilli Culture, Resulted Pending 03/21/20 Gram Stain - Final, Resulted 03/21/20 Fungal Culture, Resulted Pending 03/21/20 Fungal Culture Result 1, Resulted Pending 03/16/20 Blood Culture - Final, Complete NO GROWTH AFTER 5 DAYS Note drop in hemoglobin--real? Didn't come out anywhere. Vitals/I & O Vital Sign - Last 24 Hours 03/26/20 03/26/20 03/26/20 03/26/20 13:00 14:00 15:13 15:15 Temp 98.2 98.2 Pulse 80 80 96 Resp 18 18 17 B/P (MAP) 97/59 (72) 92/55 (67) 129/67 (87) Pulse Ox 100 100 100 O2 Delivery Room Air Room Air Room Air Room Air 03/26/20 03/26/20 03/26/20 03/26/20 15:29 15:59 16:00 16:00 Pulse 92 Resp 17 18 17 B/P (MAP) 107/62 (77) Pulse Ox 99 O2 Delivery Room Air Room Air Room Air Room Air O2 Flow Rate 92.0 03/26/20 03/26/20 03/26/20 03/26/20 17:00 18:00 19:00 19:16 Temp 98.1 98.1 Pulse 86 90 90 Resp 17 20 18 12 B/P (MAP) 105/58 (74) 100/59 (73) 98/58 (71) Pulse Ox 99 99 99 99 O2 Delivery Room Air Room Air Room Air Room Air 03/26/20 03/26/20 03/26/20 03/26/20 19:42 19:46 20:00 20:54 Pulse 90 Resp 18 B/P (MAP) 101/60 Pulse Ox 96 O2 Delivery Room Air Room Air Room Air 03/26/20 03/26/20 03/26/20 03/27/20 20:55 21:55 22:35 01:39 Temp 98.2 98.2 Pulse 84 Resp 16 16 16 18 B/P (MAP) 97/53 (68) Pulse Ox 98 O2 Delivery Room Air Room Air Room Air Room Air 03/27/20 03/27/20 03/27/20 03/27/20 02:05 03:00 06:04 06:59 Temp 97.5 97.5 Pulse 80 Resp 17 18 16 16 B/P (MAP) 123/50 (74) Pulse Ox 97 O2 Delivery Room Air Room Air Room Air Room Air 03/27/20 03/27/20 03/27/20 03/27/20 07:49 07:59 08:00 09:12 Temp 97.8 97.8 Pulse 96 96 Resp 18 B/P (MAP) 111/69 (83) 111/69 Pulse Ox 98 98 O2 Delivery Room Air Room Air Room Air O2 Flow Rate 92.0 03/27/20 03/27/20 09:13 11:39 Pulse 96 B/P (MAP) 111/69 O2 Delivery Room Air Intake and Output 03/26/20 03/26/20 03/27/20 15:00 23:00 07:00 Intake Total 120 ml 481 ml Output Total 600 ml 315 ml 405 ml Balance -600 ml -195 ml 76 ml Problem List Problems Medical Problems: (1) Acute kidney injury Status: Acute (2) Encephalopathy Status: Acute (3) Hypoglycemia Status: Acute (4) Hyponatremia Status: Acute (5) Seizure Status: Acute Assessment Liver abcess, post IR drain. No overt recurrent bleeding. Plan of Care Note Transfuse OK Follow hemoglobin. Justicifation of Admission Dx: Justifications for Admission: Justification of Admission Dx: Yes Sepsis: Bacteremia Altered Mental Status: Altered Mental Status JAGDISH SEYMOUR MD Mar 27, 2020 12:57
--- NOTE | 2020-03-27 15:28 | PDOC ---
SURGICAL PROGRESS NOTE Subjective Pt feels better, main c/o is some back pain, abd pain much improved. Vital Signs Vital Signs Date Time Temp Pulse Resp B/P (MAP) Pulse Ox O2 Delivery O2 Flow Rate FiO2 03/27/20 14:17 Room Air 03/27/20 11:59 98.2 84 18 108/65 (79) 99 98.2 03/27/20 08:00 92.0 I&O Intake and Output 03/27/20 07:00 Intake Total 601 ml Output Total 1320 ml Balance -719 ml Intake Oral 601 ml Output Urine Total 1300 ml Drainage Total 20 ml # Voids 3 # Bowel Movements 1 General: Alert, Oriented X3, Cooperative, No acute distress Abdomen: Soft, No tenderness, Other (drain with brownish drainage) Labs Laboratory Tests Test 03/25/20 16:26 03/25/20 18:00 03/25/20 21:33 03/26/20 00:30 Glucose (Fingerstick) 83 mg/dL (70-99) 187 mg/dL (70-99) Sodium Level 125 mmol/L (136-145) 127 mmol/L (136-145) Potassium Level 3.8 mmol/L (3.5-5.1) 3.8 mmol/L (3.5-5.1) Chloride Level 95 mmol/L (98-107) 96 mmol/L (98-107) Carbon Dioxide Level 25 mmol/L (21-32) 25 mmol/L (21-32) Anion Gap 5 (6-14) 6 (6-14) Blood Urea Nitrogen 6 mg/dL (8-26) 6 mg/dL (8-26) Creatinine 0.9 mg/dL (0.7-1.3) 1.0 mg/dL (0.7-1.3) Estimated GFR (Cockcroft-Gault) 86.1 76.2 Glucose Level 129 mg/dL (70-99) 137 mg/dL (70-99) Calcium Level 7.2 mg/dL (8.5-10.1) 7.2 mg/dL (8.5-10.1) Test 03/26/20 05:30 03/26/20 08:11 03/26/20 12:00 03/26/20 14:50 White Blood Count 3.7 x10^3/uL (4.0-11.0) Red Blood Count 3.59 x10^6/uL (4.30-5.70) Hemoglobin 10.5 g/dL (13.0-17.5) Hematocrit 30.5 % (39.0-53.0) Mean Corpuscular Volume 85 fL (79-100) Mean Corpuscular Hemoglobin 29 pg (25-35) Mean Corpuscular Hemoglobin Concent 34 g/dL (31-37) Red Cell Distribution Width 15.8 % (11.5-14.5) Platelet Count 245 x10^3/uL (140-400) Neutrophils (%) (Auto) 80 % (31-73) Lymphocytes (%) (Auto) 10 % (24-48) Monocytes (%) (Auto) 9 % (0-9) Eosinophils (%) (Auto) 1 % (0-3) Basophils (%) (Auto) 1 % (0-3) Neutrophils # (Auto) 3.0 x10^3/uL (1.8-7.7) Lymphocytes # (Auto) 0.4 x10^3/uL (1.0-4.8) Monocytes # (Auto) 0.4 x10^3/uL (0.0-1.1) Eosinophils # (Auto) 0.0 x10^3/uL (0.0-0.7) Basophils # (Auto) 0.0 x10^3/uL (0.0-0.2) Sodium Level 128 mmol/L (136-145) 129 mmol/L (136-145) Potassium Level 3.4 mmol/L (3.5-5.1) 3.6 mmol/L (3.5-5.1) Chloride Level 98 mmol/L (98-107) 96 mmol/L (98-107) Carbon Dioxide Level 26 mmol/L (21-32) 26 mmol/L (21-32) Anion Gap 4 (6-14) 7 (6-14) Blood Urea Nitrogen 6 mg/dL (8-26) 6 mg/dL (8-26) Creatinine 1.0 mg/dL (0.7-1.3) 1.0 mg/dL (0.7-1.3) Estimated GFR (Cockcroft-Gault) 76.2 76.2 Glucose Level 151 mg/dL (70-99) 133 mg/dL (70-99) Calcium Level 7.1 mg/dL (8.5-10.1) 7.1 mg/dL (8.5-10.1) Glucose (Fingerstick) 135 mg/dL (70-99) 165 mg/dL (70-99) Test 03/26/20 17:02 03/26/20 20:36 03/27/20 06:00 03/27/20 07:45 Glucose (Fingerstick) 152 mg/dL (70-99) 187 mg/dL (70-99) Sodium Level 126 mmol/L (136-145) Potassium Level 4.0 mmol/L (3.5-5.1) Chloride Level 95 mmol/L (98-107) Carbon Dioxide Level 26 mmol/L (21-32) Anion Gap 5 (6-14) Blood Urea Nitrogen 7 mg/dL (8-26) Creatinine 1.0 mg/dL (0.7-1.3) Estimated GFR (Cockcroft-Gault) 76.2 BUN/Creatinine Ratio 7 (6-20) Glucose Level 153 mg/dL (70-99) Calcium Level 7.4 mg/dL (8.5-10.1) Total Bilirubin 0.4 mg/dL (0.2-1.0) Aspartate Amino Transf (AST/SGOT) 14 U/L (15-37) Alanine Aminotransferase (ALT/SGPT) 12 U/L (16-63) Alkaline Phosphatase 102 U/L (46-116) Total Protein 5.2 g/dL (6.4-8.2) Albumin 1.5 g/dL (3.4-5.0) Albumin/Globulin Ratio 0.4 (1.0-1.7) White Blood Count 5.9 x10^3/uL (4.0-11.0) Red Blood Count 2.40 x10^6/uL (4.30-5.70) Hemoglobin 7.0 g/dL (13.0-17.5) Hematocrit 20.3 % (39.0-53.0) Mean Corpuscular Volume 85 fL (79-100) Mean Corpuscular Hemoglobin 29 pg (25-35) Mean Corpuscular Hemoglobin Concent 35 g/dL (31-37) Red Cell Distribution Width 15.8 % (11.5-14.5) Platelet Count 358 x10^3/uL (140-400) Neutrophils (%) (Auto) 76 % (31-73) Lymphocytes (%) (Auto) 13 % (24-48) Monocytes (%) (Auto) 9 % (0-9) Eosinophils (%) (Auto) 1 % (0-3) Basophils (%) (Auto) 1 % (0-3) Neutrophils # (Auto) 4.5 x10^3/uL (1.8-7.7) Lymphocytes # (Auto) 0.8 x10^3/uL (1.0-4.8) Monocytes # (Auto) 0.5 x10^3/uL (0.0-1.1) Eosinophils # (Auto) 0.1 x10^3/uL (0.0-0.7) Basophils # (Auto) 0.1 x10^3/uL (0.0-0.2) Test 03/27/20 11:30 03/27/20 12:17 White Blood Count 6.1 x10^3/uL (4.0-11.0) Red Blood Count 2.42 x10^6/uL (4.30-5.70) Hemoglobin 6.9 g/dL (13.0-17.5) Hematocrit 20.6 % (39.0-53.0) Mean Corpuscular Volume 85 fL (79-100) Mean Corpuscular Hemoglobin 29 pg (25-35) Mean Corpuscular Hemoglobin Concent 34 g/dL (31-37) Red Cell Distribution Width 15.9 % (11.5-14.5) Platelet Count 372 x10^3/uL (140-400) Glucose (Fingerstick) 174 mg/dL (70-99) Laboratory Tests Test 03/26/20 17:02 03/26/20 20:36 03/27/20 06:00 03/27/20 07:45 Glucose (Fingerstick) 152 mg/dL (70-99) 187 mg/dL (70-99) Sodium Level 126 mmol/L (136-145) Potassium Level 4.0 mmol/L (3.5-5.1) Chloride Level 95 mmol/L (98-107) Carbon Dioxide Level 26 mmol/L (21-32) Anion Gap 5 (6-14) Blood Urea Nitrogen 7 mg/dL (8-26) Creatinine 1.0 mg/dL (0.7-1.3) Estimated GFR (Cockcroft-Gault) 76.2 BUN/Creatinine Ratio 7 (6-20) Glucose Level 153 mg/dL (70-99) Calcium Level 7.4 mg/dL (8.5-10.1) Total Bilirubin 0.4 mg/dL (0.2-1.0) Aspartate Amino Transf (AST/SGOT) 14 U/L (15-37) Alanine Aminotransferase (ALT/SGPT) 12 U/L (16-63) Alkaline Phosphatase 102 U/L (46-116) Total Protein 5.2 g/dL (6.4-8.2) Albumin 1.5 g/dL (3.4-5.0) Albumin/Globulin Ratio 0.4 (1.0-1.7) White Blood Count 5.9 x10^3/uL (4.0-11.0) Red Blood Count 2.40 x10^6/uL (4.30-5.70) Hemoglobin 7.0 g/dL (13.0-17.5) Hematocrit 20.3 % (39.0-53.0) Mean Corpuscular Volume 85 fL (79-100) Mean Corpuscular Hemoglobin 29 pg (25-35) Mean Corpuscular Hemoglobin Concent 35 g/dL (31-37) Red Cell Distribution Width 15.8 % (11.5-14.5) Platelet Count 358 x10^3/uL (140-400) Neutrophils (%) (Auto) 76 % (31-73) Lymphocytes (%) (Auto) 13 % (24-48) Monocytes (%) (Auto) 9 % (0-9) Eosinophils (%) (Auto) 1 % (0-3) Basophils (%) (Auto) 1 % (0-3) Neutrophils # (Auto) 4.5 x10^3/uL (1.8-7.7) Lymphocytes # (Auto) 0.8 x10^3/uL (1.0-4.8) Monocytes # (Auto) 0.5 x10^3/uL (0.0-1.1) Eosinophils # (Auto) 0.1 x10^3/uL (0.0-0.7) Basophils # (Auto) 0.1 x10^3/uL (0.0-0.2) Test 03/27/20 11:30 03/27/20 12:17 White Blood Count 6.1 x10^3/uL (4.0-11.0) Red Blood Count 2.42 x10^6/uL (4.30-5.70) Hemoglobin 6.9 g/dL (13.0-17.5) Hematocrit 20.6 % (39.0-53.0) Mean Corpuscular Volume 85 fL (79-100) Mean Corpuscular Hemoglobin 29 pg (25-35) Mean Corpuscular Hemoglobin Concent 34 g/dL (31-37) Red Cell Distribution Width 15.9 % (11.5-14.5) Platelet Count 372 x10^3/uL (140-400) Glucose (Fingerstick) 174 mg/dL (70-99) Problem List Problems Medical Problems: (1) Acute kidney injury Status: Acute (2) Encephalopathy Status: Acute (3) Hypoglycemia Status: Acute (4) Hyponatremia Status: Acute (5) Seizure Status: Acute Assessment/Plan liver abscess appears improved. OK to work on d/c home with abx and drain Justicifation of Admission Dx: Justifications for Admission: Justification of Admission Dx: Yes Sepsis: Bacteremia Altered Mental Status: Altered Mental Status ROGER BURNS MD Mar 27, 2020 15:28
[2020-03-27] MEDS: ATORVASTATIN CALCIUM 20 MG TABLET PO SCH (20:40)
[2020-03-27] MEDS: INSULIN GLARGINE SYRINGE. SQ SCH (20:46)
[2020-03-28] MEDS: fentaNYL PF VIAL 100 MCG/2 ML VIAL IVP PRN ×2 (00:35→21:21)
[2020-03-28 03:06] VITALS: BP 141/86
[2020-03-28] MEDS: metroNIDAZOLE 500 MG TABLET PO SCH ×3 (05:50→21:22)
[2020-03-28] MEDS: oxyCODONE IR 5 MG TABLET PO PRN ×3 (05:51→18:23)
[2020-03-28 06:07] LABS: HEMATOCRIT 23.7 % (39.0-53.0); HEMOGLOBIN 8.1 g/dL (13.0-17.5); RED BLOOD COUNT 2.82 x10^6/uL (4.30-5.70); RED CELL DISTRIBUTION WIDTH 15.9 % (11.5-14.5); WHITE BLOOD COUNT 7.6 x10^3/uL (4.0-11.0)
[2020-03-28 06:26] LABS: CALCIUM 7.7 mg/dL (8.5-10.1); CREATININE 1.1 mg/dL (0.7-1.3); GFR 68.3; POTASSIUM 4.1 mmol/L (3.5-5.1)
[2020-03-28 07:00] VITALS: BP 124/80
[2020-03-28] MEDS: BUDESONIDE 0.5 MG/2 ML NEBU. NEB SCH ×2 (07:05→19:34)
[2020-03-28] MEDS: IPRATRPIUM/ALBUTEROL 0.5/2.5MG 3 ML NEBU. NEB SCH ×4 (07:05→19:34)
[2020-03-28] MEDS: INSULIN LISPRO 300 UNITS/3 ML VIAL. SQ SCH ×4 (07:30→21:00)
[2020-03-28] MEDS: PANTOPRAZOLE IV PUSH 40 MG VIAL. IVP SCH (08:08)
[2020-03-28] MEDS: DULoxetine HCL 30 MG CAPSULE.DR PO SCH ×2 (08:08→21:22)
[2020-03-28] MEDS: LACTOBACILLUS RHAMNOSUS GG 1 CAPSULE. PO SCH ×2 (08:09→21:22)
[2020-03-28] MEDS: MONTELUKAST SODIUM 10 MG TABLET. PO SCH (08:09)
[2020-03-28] MEDS: ASCORBIC ACID 500 MG TABLET PO SCH (08:09)
[2020-03-28] MEDS: LINAGLIPTIN 5 MG TABLET PO SCH (08:09)
[2020-03-28] MEDS: cefTRIAXone IV Push 2 GM VIAL. IVP SCH (08:09)
[2020-03-28] MEDS: MULTIVITAMIN with MINERAL TABLET. PO SCH (08:09)
[2020-03-28] MEDS: amLODIPine BESYLATE 5 MG TABLET PO SCH (08:09)
[2020-03-28] MEDS: METOPROLOL TART IMMED RELEASE 25 MG TABLET. PO SCH ×2 (08:10→21:22)
--- NOTE | 2020-03-28 08:54 | NUR ---
SW following. Chart reviewed, updates faxed to [facility], likely will have beds today. Awaiting confirmation from physician of whether pt can discharge today. Addendum: 03/28/20 at 1010 by FREYA ANDREW Discharge orders faxed to [facility], awaiting confirmation of bed time. RN notified.
--- NOTE | 2020-03-28 09:17 | PDOC ---
SURGICAL PROGRESS NOTE Subjective in bathroom during rounds dc planning Vital Signs Vital Signs Date Time Temp Pulse Resp B/P (MAP) Pulse Ox O2 Delivery O2 Flow Rate FiO2 03/28/20 08:10 101 124/80 03/28/20 07:05 99 Room Air 03/28/20 07:00 98.4 18 98.4 03/27/20 08:00 92.0 I&O Intake and Output 03/28/20 07:00 Intake Total 2174 ml Output Total 1165 ml Balance 1009 ml Intake Oral 1540 ml Blood Product IV Normal Saline Flush 634 ml Output Urine Total 1150 ml Drainage Total 15 ml # Voids 6 # Bowel Movements 6 Labs Laboratory Tests Test 03/26/20 12:00 03/26/20 14:50 03/26/20 17:02 03/26/20 20:36 Glucose (Fingerstick) 165 mg/dL (70-99) 152 mg/dL (70-99) 187 mg/dL (70-99) Sodium Level 129 mmol/L (136-145) Potassium Level 3.6 mmol/L (3.5-5.1) Chloride Level 96 mmol/L (98-107) Carbon Dioxide Level 26 mmol/L (21-32) Anion Gap 7 (6-14) Blood Urea Nitrogen 6 mg/dL (8-26) Creatinine 1.0 mg/dL (0.7-1.3) Estimated GFR (Cockcroft-Gault) 76.2 Glucose Level 133 mg/dL (70-99) Calcium Level 7.1 mg/dL (8.5-10.1) Test 03/27/20 06:00 03/27/20 07:45 03/27/20 11:30 03/27/20 12:17 Sodium Level 126 mmol/L (136-145) Potassium Level 4.0 mmol/L (3.5-5.1) Chloride Level 95 mmol/L (98-107) Carbon Dioxide Level 26 mmol/L (21-32) Anion Gap 5 (6-14) Blood Urea Nitrogen 7 mg/dL (8-26) Creatinine 1.0 mg/dL (0.7-1.3) Estimated GFR (Cockcroft-Gault) 76.2 BUN/Creatinine Ratio 7 (6-20) Glucose Level 153 mg/dL (70-99) Calcium Level 7.4 mg/dL (8.5-10.1) Total Bilirubin 0.4 mg/dL (0.2-1.0) Aspartate Amino Transf (AST/SGOT) 14 U/L (15-37) Alanine Aminotransferase (ALT/SGPT) 12 U/L (16-63) Alkaline Phosphatase 102 U/L (46-116) Total Protein 5.2 g/dL (6.4-8.2) Albumin 1.5 g/dL (3.4-5.0) Albumin/Globulin Ratio 0.4 (1.0-1.7) White Blood Count 5.9 x10^3/uL (4.0-11.0) 6.1 x10^3/uL (4.0-11.0) Red Blood Count 2.40 x10^6/uL (4.30-5.70) 2.42 x10^6/uL (4.30-5.70) Hemoglobin 7.0 g/dL (13.0-17.5) 6.9 g/dL (13.0-17.5) Hematocrit 20.3 % (39.0-53.0) 20.6 % (39.0-53.0) Mean Corpuscular Volume 85 fL (79-100) 85 fL (79-100) Mean Corpuscular Hemoglobin 29 pg (25-35) 29 pg (25-35) Mean Corpuscular Hemoglobin Concent 35 g/dL (31-37) 34 g/dL (31-37) Red Cell Distribution Width 15.8 % (11.5-14.5) 15.9 % (11.5-14.5) Platelet Count 358 x10^3/uL (140-400) 372 x10^3/uL (140-400) Neutrophils (%) (Auto) 76 % (31-73) Lymphocytes (%) (Auto) 13 % (24-48) Monocytes (%) (Auto) 9 % (0-9) Eosinophils (%) (Auto) 1 % (0-3) Basophils (%) (Auto) 1 % (0-3) Neutrophils # (Auto) 4.5 x10^3/uL (1.8-7.7) Lymphocytes # (Auto) 0.8 x10^3/uL (1.0-4.8) Monocytes # (Auto) 0.5 x10^3/uL (0.0-1.1) Eosinophils # (Auto) 0.1 x10^3/uL (0.0-0.7) Basophils # (Auto) 0.1 x10^3/uL (0.0-0.2) Glucose (Fingerstick) 174 mg/dL (70-99) Test 03/27/20 17:10 03/27/20 20:32 03/28/20 05:55 03/28/20 07:41 Glucose (Fingerstick) 144 mg/dL (70-99) 220 mg/dL (70-99) 90 mg/dL (70-99) White Blood Count 7.6 x10^3/uL (4.0-11.0) Red Blood Count 2.82 x10^6/uL (4.30-5.70) Hemoglobin 8.1 g/dL (13.0-17.5) Hematocrit 23.7 % (39.0-53.0) Mean Corpuscular Volume 84 fL (79-100) Mean Corpuscular Hemoglobin 29 pg (25-35) Mean Corpuscular Hemoglobin Concent 34 g/dL (31-37) Red Cell Distribution Width 15.9 % (11.5-14.5) Platelet Count 366 x10^3/uL (140-400) Sodium Level 126 mmol/L (136-145) Potassium Level 4.1 mmol/L (3.5-5.1) Chloride Level 94 mmol/L (98-107) Carbon Dioxide Level 26 mmol/L (21-32) Anion Gap 6 (6-14) Blood Urea Nitrogen 7 mg/dL (8-26) Creatinine 1.1 mg/dL (0.7-1.3) Estimated GFR (Cockcroft-Gault) 68.3 Glucose Level 95 mg/dL (70-99) Calcium Level 7.7 mg/dL (8.5-10.1) Thyroid Stimulating Hormone (TSH) 2.987 uIU/mL (0.358-3.74) Laboratory Tests Test 03/27/20 11:30 03/27/20 12:17 03/27/20 17:10 03/27/20 20:32 White Blood Count 6.1 x10^3/uL (4.0-11.0) Red Blood Count 2.42 x10^6/uL (4.30-5.70) Hemoglobin 6.9 g/dL (13.0-17.5) Hematocrit 20.6 % (39.0-53.0) Mean Corpuscular Volume 85 fL (79-100) Mean Corpuscular Hemoglobin 29 pg (25-35) Mean Corpuscular Hemoglobin Concent 34 g/dL (31-37) Red Cell Distribution Width 15.9 % (11.5-14.5) Platelet Count 372 x10^3/uL (140-400) Glucose (Fingerstick) 174 mg/dL (70-99) 144 mg/dL (70-99) 220 mg/dL (70-99) Test 03/28/20 05:55 03/28/20 07:41 White Blood Count 7.6 x10^3/uL (4.0-11.0) Red Blood Count 2.82 x10^6/uL (4.30-5.70) Hemoglobin 8.1 g/dL (13.0-17.5) Hematocrit 23.7 % (39.0-53.0) Mean Corpuscular Volume 84 fL (79-100) Mean Corpuscular Hemoglobin 29 pg (25-35) Mean Corpuscular Hemoglobin Concent 34 g/dL (31-37) Red Cell Distribution Width 15.9 % (11.5-14.5) Platelet Count 366 x10^3/uL (140-400) Sodium Level 126 mmol/L (136-145) Potassium Level 4.1 mmol/L (3.5-5.1) Chloride Level 94 mmol/L (98-107) Carbon Dioxide Level 26 mmol/L (21-32) Anion Gap 6 (6-14) Blood Urea Nitrogen 7 mg/dL (8-26) Creatinine 1.1 mg/dL (0.7-1.3) Estimated GFR (Cockcroft-Gault) 68.3 Glucose Level 95 mg/dL (70-99) Calcium Level 7.7 mg/dL (8.5-10.1) Thyroid Stimulating Hormone (TSH) 2.987 uIU/mL (0.358-3.74) Glucose (Fingerstick) 90 mg/dL (70-99) Problem List Problems Medical Problems: (1) Acute kidney injury Status: Acute (2) Encephalopathy Status: Acute (3) Hypoglycemia Status: Acute (4) Hyponatremia Status: Acute (5) Seizure Status: Acute Justicifation of Admission Dx: Justifications for Admission: Justification of Admission Dx: Yes Sepsis: Bacteremia Altered Mental Status: Altered Mental Status MARÍA KRAUSE APRN Mar 28, 2020 09:17
--- NOTE | 2020-03-28 09:36 | PDOC ---
Infectious Disease Note Subjective Subjective feeling better ROS ROS no n/v/d/sob Vital Sign Vital Signs Vital Signs Date Time Temp Pulse Resp B/P (MAP) Pulse Ox O2 Delivery O2 Flow Rate FiO2 03/28/20 08:10 101 124/80 03/28/20 07:05 99 Room Air 03/28/20 07:00 98.4 18 98.4 03/27/20 08:00 92.0 Physical Exam PHYSICAL EXAM GENERAL: Alert, awake, in bed , coop looks comfortable. HEENT: Normocephalic, atraumatic, anicteric. Oral mucosa dry. No thrush. NECK: Supple. Right IJ present - clean LUNGS: Decreased breath sounds at bases. No wheezing. No accessory muscle use. HEART: S1, S2 regular. No murmurs. ABDOMEN: Mildly distended. Bowel sounds present, nontender, no rebound, no guarding. JULIA with serous fluid. Pump clean in LLQ EXTREMITIES: No edema, no cyanosis. Left elbow wound is clean but now open m ore. NEUROLOGIC: Alert, awake - confused PSYCHIATRIC: Cooperative. SKIN: no rash Labs Lab Laboratory Tests Test 03/27/20 11:30 03/27/20 12:17 03/27/20 17:10 03/27/20 20:32 White Blood Count 6.1 x10^3/uL (4.0-11.0) Red Blood Count 2.42 x10^6/uL (4.30-5.70) Hemoglobin 6.9 g/dL (13.0-17.5) Hematocrit 20.6 % (39.0-53.0) Mean Corpuscular Volume 85 fL (79-100) Mean Corpuscular Hemoglobin 29 pg (25-35) Mean Corpuscular Hemoglobin Concent 34 g/dL (31-37) Red Cell Distribution Width 15.9 % (11.5-14.5) Platelet Count 372 x10^3/uL (140-400) Glucose (Fingerstick) 174 mg/dL (70-99) 144 mg/dL (70-99) 220 mg/dL (70-99) Test 03/28/20 05:55 03/28/20 07:41 White Blood Count 7.6 x10^3/uL (4.0-11.0) Red Blood Count 2.82 x10^6/uL (4.30-5.70) Hemoglobin 8.1 g/dL (13.0-17.5) Hematocrit 23.7 % (39.0-53.0) Mean Corpuscular Volume 84 fL (79-100) Mean Corpuscular Hemoglobin 29 pg (25-35) Mean Corpuscular Hemoglobin Concent 34 g/dL (31-37) Red Cell Distribution Width 15.9 % (11.5-14.5) Platelet Count 366 x10^3/uL (140-400) Sodium Level 126 mmol/L (136-145) Potassium Level 4.1 mmol/L (3.5-5.1) Chloride Level 94 mmol/L (98-107) Carbon Dioxide Level 26 mmol/L (21-32) Anion Gap 6 (6-14) Blood Urea Nitrogen 7 mg/dL (8-26) Creatinine 1.1 mg/dL (0.7-1.3) Estimated GFR (Cockcroft-Gault) 68.3 Glucose Level 95 mg/dL (70-99) Calcium Level 7.7 mg/dL (8.5-10.1) Thyroid Stimulating Hormone (TSH) 2.987 uIU/mL (0.358-3.74) Glucose (Fingerstick) 90 mg/dL (70-99) Objective Assessment 1. Severe Sepsis present on admission from gram-negative bacteremia.03/15. 03/16 - neg 2. E Coli bacteremia ? intrabdominal source s/p abscess drain 03/21 - Ecoli and bacteroides 3. Leukocytosis and lactic acidosis.Solumedrol - 03/18/PRBCs - better 4. Anemia, status post PRBC.03/21 and 03/23- bleed scan neg 03/21 5. Hyponatremia. 6. Encephalopathy - resolving, likely metabolic, CT head negative 7. History of renal cancer.S/P Nephrectomy 8. Abnormal LFTs ,Liver mass 9. History of ALLERGIES TO CLINDAMYCIN AND LEVAQUIN. 10. Recent placement of metallic stent 11. Thrombocytopenia - better? Sepsis vs other 12 COVID-19 neg 03/19 13. Back pain - CT without gross findings 14. Left elbow wound - open but clean - Plan Plan of Care Flagyl for Bacteroides 03/24 XRAY L elbow -reviewed Cont Ceftriaxone 03/20 F/u IR cults - F/U AM labs. Anemia per primary Electrolytes per primary Maintain aspiration precaution. Local wound care as directed Discussed with nursing staff GARY JAMES MD Mar 28, 2020 09:36
--- NOTE | 2020-03-28 10:13 | SNU/HH DC ---
DISCHARGE ORDERS DISCHARGE INFORMATION: FINAL DIAGNOSIS Problems Medical Problems: (1) Acute kidney injury Status: Acute (2) Encephalopathy Status: Acute (3) Hypoglycemia Status: Acute (4) Hyponatremia Status: Acute (5) Seizure Status: Acute CONDITION ON DISCHARGE: Stable CODE STATUS: Code Status: DNR/DNI INTERMEDIATE: SNF STAY <30 DAYS: No HOSPICE: HOSPICE: No HOSPICE EVAL & TREAT: No LTAC: ADMIT TO LTAC: Yes POST DISCHARGE ORDERS: ACTIVITY ORDERS: Activity as tolerated WEIGHT BEARING STATUS: As tolerated DIET AFTER DISCHARGE: Cardiac WOUND/INCISION CARE: Ice to area for comfort CHECKS AFTER DISCHARGE: CHECKS AFTER DISCHARGE: Check blood sugar, ac/hs, Weigh Yourself Daily TREATMENT/EQUIPMENT ORDERS: Physical Therapy For: Evalulation/Treatment Occupational Therapy For: Evaluation/Treatment DISCHARGE MEDICATIONS: Home Meds Active Scripts Metoprolol Tartrate (METOPROLOL TARTRATE) 25 Mg Tablet, 25 MG PO BID for cardiac, #60 TAB Prov:FLORY COELHO MD 03/23/20 Insulin Glargine,Hum.rec.anlog (LANTUS) 100 Unit/1 Ml Vial, 5 UNIT SQ QHS for dm2, #100 EACH Prov:FLORY COELHO MD 03/23/20 Polyethylene Glycol 3350 (MIRALAX) 17 Gm Powd.pack, 1 PKT PO PRN DAILY PRN for CONSTIPATION, #30 PKT Prov:FLORY COELHO MD 04/17/18 Reported Medications Etodolac (ETODOLAC) 400 Mg Tablet, 1 TAB PO BID for pain, #60 TAB 03/16/20 Ondansetron Hcl (ONDANSETRON HCL) 8 Mg Tablet, 8 MG PO BID PRN for NAUS EA/VOMITING, TAB 03/16/20 Oxycodone Hcl (OXYCODONE HCL IMMED.RELEASE) 15 Mg Tablet, 15 MG PO PRN Q6HRS PRN for PAIN, TAB 0 Refills 03/16/20 Montelukast Sodium (MONTELUKAST SODIUM TABLET ) 10 Mg Tablet, 10 MG PO DAILY 04/14/18 Omeprazole Magnesium (PRILOSEC OTC) 20 Mg Tablet.dr, 1 TAB PO DAILY, #30 TAB 3 Refills 02/08/16 Atorvastatin Calcium (ATORVASTATIN CALCIUM) 20 Mg Tablet, 1 TAB PO DAILY, #30 TAB 5 Refills 11/17/15 Sitagliptin Phosphate (JANUVIA) 50 Mg Tablet, 1 TAB PO DAILY, #30 TAB 5 Refills 11/17/15 Tizanidine Hcl (TIZANIDINE HCL) 4 Mg Tablet, 1 TAB PO Q6HRS PRN for PAIN, #60 TAB can have 1-2 tabs 11/17/15 Lidocaine (LIDODERM) 700 Mg Adh..patch, 1 PATCH TP DAILY PRN for PA, PATCH 11/17/15 Lorazepam (ATIVAN) 1 Mg Tablet, 1 MG PO BID PRN for ANXIETY / AGITATION, TAB 11/17/15 Amlodipine Besylate (AMLODIPINE BESYLATE) 10 Mg Tablet, 10 MG PO DAILY, TAB 11/17/15 Diclofenac Sodium (VOLTAREN) 100 Gm Gel..gram., 1 GM TP QID PRN for PAIN, #100 GM 2 Refills 11/17/15 Albuterol Sulfate (VENTOLIN HFA INHALER) 18 Gm Hfa.aer.ad, 2 PUFF IH PRN Q4- 6HRS, #1 INHALER 11/17/15 Duloxetine Hcl (CYMBALTA) 60 Mg Capsule.dr, 60 MG PO BID, #90 CAP 3 Refills 11/17/15 Discontinued Reported Medications Insulin Glargine,Hum.rec.anlog (Basaglar Kwikpen U-100) 100 Unit/1 Ml Insuln.pen, 50 UNIT SQ HS, EACH 04/14/18 Insulin Aspart (NOVOLOG FLEXPEN) 100 Unit/1 Ml Insuln.pen, 1 UNIT SQ, SYR 15-20 UNITS WITH MEALS TO MAX OF 80 UNITS DAILY 11/17/15 Atenolol (ATENOLOL) 25 Mg Tablet, 1 TAB PO DAILY, #30 TAB 5 Refills 11/17/15 JACEY VALIENTE III DO Mar 28, 2020 10:13
--- NOTE | 2020-03-28 10:14 | PDOC ---
SUBJECTIVE ROS Stable , MS improved OBJECTIVE Vital Signs Vital Signs Date Time Temp Pulse Resp B/P (MAP) Pulse Ox O2 Delivery O2 Flow Rate FiO2 03/28/20 08:10 101 124/80 03/28/20 08:00 Room Air 92.0 03/28/20 07:05 99 03/28/20 07:00 98.4 18 98.4 I & 0 Intake and Output 03/28/20 07:00 Intake Total 2174 ml Output Total 1165 ml Balance 1009 ml Intake Oral 1540 ml Blood Product IV Normal Saline Flush 634 ml Output Urine Total 1150 ml Drainage Total 15 ml # Voids 6 # Bowel Movements 6 PHYSICAL EXAM Physical Exam General: Alert, No acute distress HEENT: Other (nc at perrl ) Lungs: Clear Cardiovascular: S1, S2 Abdomen: Soft, Other (obese) Neuro Exam: Alert Extremities: Other (1+edema) Skin: Warm DIAGNOSIS/ASSESSMENT Assessment & Plan HypoNatremia - Stable, still low at 126 ,preset since 03/15 , suspect SIADH S/P 3 % Saline , CT chest (if Not done recently ) , Monitor COLBY - Resolved CKD Stage 3 - Cr at baseline Anemia Acute respiratory failure with audible upper airway wheezing 03/19 resolved . Anemia, status post transfusion.on going GI bleed-- improved Hypoglycemic encephalopathy, present on admission , improved Liver abscess. s/p drain E Coli bacteremia likely intrabdominal source s/p abscess drain 03/21 - Ecoli COMMENT/RELEVANT DATA Meds Current Medications Medications (Trade) Dose Ordered Sig/Tory Start Time Stop Time Status Last Admin Dose Admin Acetaminophen (Tylenol Supp) 650 mg PRN Q6HRS PRN 03/16/20 23:00 03/21/20 17:29 650 MG Acetaminophen (Tylenol) 650 mg 1X ONCE 03/21/20 17:15 03/21/20 17:16 DC Albumin Human 500 ml @ 125 mls/hr PRN DAILY PRN 03/18/20 15:45 03/18/20 16:07 125 MLS/HR Albuterol Sulfate (Ventolin Neb Soln) 2.5 mg PRN Q4HRS PRN 03/16/20 08:30 Albuterol/ Ipratropium (Duoneb) 3 ml RTQID 03/18/20 12:00 03/28/20 07:05 3 ML Amino Acids/ Glycerin/ Electrolytes 1,000 ml @ 80 mls/hr [id number] 03/20/20 14:00 03/21/20 12:25 DC 03/21/20 01:55 80 MLS/HR Amlodipine Besylate (Norvasc) 5 mg DAILY 03/27/20 09:00 03/28/20 08:09 5 MG Ascorbic Acid (Vitamin C) 500 mg DAILY 03/25/20 13:00 03/28/20 08:09 500 MG Atenolol (Tenormin) 25 mg DAILY 03/17/20 14:00 03/17/20 14:42 DC Atorvastatin Calcium (Lipitor) 20 mg QHS 03/16/20 21:00 03/27/20 20:40 20 MG Budesonide (Pulmicort) 0.5 mg RTBID 03/18/20 20:00 03/28/20 07:05 0.5 MG Ceftriaxone Sodium (Rocephin) 2 gm Q24H 03/20/20 08:00 03/28/20 08:09 2 GM Dextrose (Dextrose 50%-Water Syringe) 12.5 gm PRN Q15MIN PRN 03/16/20 08:00 Dextrose/Sodium Chloride 1,000 ml @ 150 mls/hr Q6H40M 03/17/20 17:30 03/18/20 13:23 DC 03/18/20 02:00 150 MLS/HR Diclofenac Sodium (Voltaren) 75 mg BID 03/17/20 21:00 03/17/20 20:22 DC Diphenhydramine HCl (Benadryl) 25 mg PRN Q6HRS PRN 03/21/20 11:00 Duloxetine HCl (Cymbalta) 60 mg BID 03/16/20 09:00 03/28/20 08:08 60 MG Fentanyl Citrate (Fentanyl 2ml Vial) 25 mcg PRN Q1HR PRN 03/26/20 09:30 03/28/20 00:35 25 MCG Furosemide (Lasix) 40 mg 1X ONCE 03/26/20 12:00 03/26/20 12:07 DC 03/26/20 12:22 40 MG Haloperidol Lactate (Haldol Inj) 5 mg PRN Q6HRS PRN 03/16/20 10:45 03/26/20 07:14 5 MG Heparin Sodium (Porcine) (HEPARIN for NUC MED) 100 unit 1X ONCE 03/21/20 14:45 03/21/20 14:46 DC Heparin Sodium (Porcine) (Heparin Sodium) 5,000 unit Q8HRS 03/16/20 22:00 03/18/20 14:34 DC 03/18/20 05:01 5,000 UNIT Hydromorphone HCl 30 ml @ 0 mls/hr CONT PRN PRN 03/22/20 15:45 03/25/20 13:14 DC 03/24/20 21:35 0 MLS/HR Hydromorphone HCl (Dilaudid) 0.5 mg PRN Q1HR PRN 03/21/20 21:00 03/25/20 13:14 DC 03/22/20 13:11 0.5 MG Insulin Glargine (Lantus Syringe) 5 unit QHS 03/18/20 21:00 03/27/20 20:46 5 UNIT Insulin Human Lispro (HumaLOG) 10 units 1X ONCE 03/21/20 10:45 03/21/20 10:46 DC Ketorolac Tromethamine (Toradol 15mg Vial) 15 mg 1X ONCE 03/17/20 20:15 03/17/20 20:22 DC 03/17/20 20:34 15 MG Lactobacillus Rhamnosus (Culturelle) 1 cap BID 03/20/20 21:00 03/28/20 08:09 1 CAP Lidocaine (Lidoderm) 1 patch PRN DAILY PRN 03/16/20 08:00 03/17/20 07:16 DC Lidocaine HCl (Buffered Lidocaine 1%) 3 ml 1X ONCE 03/25/20 10:45 03/25/20 10:46 DC Linagliptin (Tradjenta) 5 mg DAILY 03/16/20 09:00 03/28/20 08:09 5 MG Lorazepam (Ativan Inj) 1 mg PRN Q6HRS PRN 03/22/20 00:45 03/22/20 07:48 DC Lorazepam (Ativan) 1 mg PRN BID PRN 03/17/20 14:00 03/27/20 13:05 1 MG Magnesium Sulfate 50 ml @ 25 mls/hr 1X ONCE 03/23/20 10:30 03/23/20 12:29 DC 03/23/20 10:30 25 MLS/HR Meropenem 500 mg/ Sodium Chloride 50 ml @ 100 mls/hr Q6HRS 03/18/20 13:30 03/20/20 07:33 DC 03/20/20 05:38 100 MLS/HR Methylprednisolone Sodium Succinate (SOLU-Medrol 125MG VIAL) 125 mg 1X ONCE 03/18/20 13:00 03/18/20 13:01 DC 03/18/20 12:26 125 MG Metoprolol Tartrate (Lopressor Vial) 5 mg PRN Q6HRS PRN 03/18/20 15:45 Metoprolol Tartrate (Lopressor) 25 mg 1X ONCE 03/17/20 21:00 03/17/20 21:01 DC 03/17/20 21:12 25 MG Metronidazole (Flagyl) 500 mg Q8HRS 03/24/20 11:00 03/28/20 05:50 500 MG Midazolam HCl (Versed) 2 mg 1X ONCE 03/21/20 10:00 03/21/20 10:10 DC 03/21/20 10:00 2 MG Montelukast Sodium (Singulair) 10 mg DAILY 03/16/20 09:00 03/28/20 08:09 10 MG Multivitamins (Thera M Plus) 1 tab DAILY 03/25/20 13:00 03/28/20 08:09 1 TAB Naloxone HCl (Narcan) 0.4 mg PRN Q2MIN PRN 03/22/20 15:30 Non-Formulary Medication (Albuterol Sulfate (Ventolin Hfa Inhaler)) 2 puff PRN Q4-6HRS 03/16/20 08:00 UNV Non-Formulary Medication (Ondansetron Hcl ) 8 mg PRN BID PRN 03/17/20 14:00 03/18/20 16:12 DC Norepinephrine Bitartrate 8 mg/ Dextrose 258 ml @ 17.705 mls/ hr CONT PRN 03/18/20 15:45 Ondansetron HCl (Zofran Odt) 8 mg PRN BID PRN 03/18/20 16:15 Ondansetron HCl (Zofran) 4 mg PRN Q4HRS PRN 03/16/20 21:00 Oxycodone HCl (Roxicodone) 15 mg PRN Q6HRS PRN 03/17/20 14:15 03/28/20 05:51 15 MG Pantoprazole Sodium (PROTONIX VIAL for IV PUSH) 40 mg BIDAC 03/18/20 16:30 03/28/20 08:08 40 MG Pantoprazole Sodium (Protonix) 40 mg DAILYAC 03/16/20 08:30 03/18/20 14:14 DC 03/18/20 04:58 40 MG Piperacillin Sod/ Tazobactam Sod (Zosyn Per Pharmacy) 1 each PRN DAILY PRN 03/17/20 20:30 03/18/20 13:08 DC Piperacillin Sod/ Tazobactam Sod 3.375 gm/Sodium Chloride 50 ml @ 100 mls/hr Q6H 03/17/20 21:00 03/18/20 12:23 DC 03/18/20 08:37 100 MLS/HR Polyethylene Glycol (miraLAX PACKET) 17 gm PRN DAILY PRN 03/16/20 08:00 Potassium Chloride (Klor-Con) 40 meq 1X ONCE 03/26/20 12:00 03/26/20 12:07 DC 03/26/20 12:22 40 MEQ Sodium Chloride 500 ml @ 30 mls/hr CONT PRN 03/25/20 13:00 03/26/20 17:07 DC 03/26/20 05:37 30 MLS/HR Sodium Chloride 154 meq/Dextrose 1,038.5 ml @ 75 mls/hr [id number] 03/17/20 04:45 03/17/20 13:10 DC 03/17/20 04:45 75 MLS/HR Tizanidine HCl (Zanaflex) 4 mg PRN Q6HRS PRN 03/17/20 14:00 03/27/20 16:24 4 MG Lab Laboratory Tests Test 03/27/20 11:30 03/27/20 12:17 03/27/20 17:10 03/27/20 20:32 White Blood Count 6.1 x10^3/uL (4.0-11.0) Red Blood Count 2.42 x10^6/uL (4.30-5.70) Hemoglobin 6.9 g/dL (13.0-17.5) Hematocrit 20.6 % (39.0-53.0) Mean Corpuscular Volume 85 fL (79-100) Mean Corpuscular Hemoglobin 29 pg (25-35) Mean Corpuscular Hemoglobin Concent 34 g/dL (31-37) Red Cell Distribution Width 15.9 % (11.5-14.5) Platelet Count 372 x10^3/uL (140-400) Glucose (Fingerstick) 174 mg/dL (70-99) 144 mg/dL (70-99) 220 mg/dL (70-99) Test 03/28/20 05:55 03/28/20 07:41 White Blood Count 7.6 x10^3/uL (4.0-11.0) Red Blood Count 2.82 x10^6/uL (4.30-5.70) Hemoglobin 8.1 g/dL (13.0-17.5) Hematocrit 23.7 % (39.0-53.0) Mean Corpuscular Volume 84 fL (79-100) Mean Corpuscular Hemoglobin 29 pg (25-35) Mean Corpuscular Hemoglobin Concent 34 g/dL (31-37) Red Cell Distribution Width 15.9 % (11.5-14.5) Platelet Count 366 x10^3/uL (140-400) Sodium Level 126 mmol/L (136-145) Potassium Level 4.1 mmol/L (3.5-5.1) Chloride Level 94 mmol/L (98-107) Carbon Dioxide Level 26 mmol/L (21-32) Anion Gap 6 (6-14) Blood Urea Nitrogen 7 mg/dL (8-26) Creatinine 1.1 mg/dL (0.7-1.3) Estimated GFR (Cockcroft-Gault) 68.3 Glucose Level 95 mg/dL (70-99) Calcium Level 7.7 mg/dL (8.5-10.1) Thyroid Stimulating Hormone (TSH) 2.987 uIU/mL (0.358-3.74) Glucose (Fingerstick) 90 mg/dL (70-99) Results All relevant outside records, renal labs, imaging studies, telemetry/EKG's were reviewed. Justicifation of Admission Dx: Justifications for Admission: Justification of Admission Dx: Yes Sepsis: Bacteremia Altered Mental Status: Altered Mental Status HOWARD AGUILAR MD Mar 28, 2020 10:14
--- NOTE | 2020-03-28 10:35 | PDOC ---
PULMONARY PROGRESS NOTES Subjective alert wants to go home denies sob, cough Vitals Vital Signs Date Time Temp Pulse Resp B/P (MAP) Pulse Ox O2 Delivery O2 Flow Rate FiO2 03/28/20 08:10 101 124/80 03/28/20 08:00 Room Air 92.0 03/28/20 07:05 99 03/28/20 07:00 98.4 18 98.4 ROS: No Abdominal Pain General: Alert, No acute distress HEENT: Other (nc at perrl ) Lungs: Clear Cardiovascular: S1, S2 Abdomen: Soft, Other (obese) Neuro Exam: Alert Extremities: Other (1+edema) Skin: Warm Labs Laboratory Tests Test 03/26/20 12:00 03/26/20 14:50 03/26/20 17:02 03/26/20 20:36 Glucose (Fingerstick) 165 mg/dL (70-99) 152 mg/dL (70-99) 187 mg/dL (70-99) Sodium Level 129 mmol/L (136-145) Potassium Level 3.6 mmol/L (3.5-5.1) Chloride Level 96 mmol/L (98-107) Carbon Dioxide Level 26 mmol/L (21-32) Anion Gap 7 (6-14) Blood Urea Nitrogen 6 mg/dL (8-26) Creatinine 1.0 mg/dL (0.7-1.3) Estimated GFR (Cockcroft-Gault) 76.2 Glucose Level 133 mg/dL (70-99) Calcium Level 7.1 mg/dL (8.5-10.1) Test 03/27/20 06:00 03/27/20 07:45 03/27/20 11:30 03/27/20 12:17 Sodium Level 126 mmol/L (136-145) Potassium Level 4.0 mmol/L (3.5-5.1) Chloride Level 95 mmol/L (98-107) Carbon Dioxide Level 26 mmol/L (21-32) Anion Gap 5 (6-14) Blood Urea Nitrogen 7 mg/dL (8-26) Creatinine 1.0 mg/dL (0.7-1.3) Estimated GFR (Cockcroft-Gault) 76.2 BUN/Creatinine Ratio 7 (6-20) Glucose Level 153 mg/dL (70-99) Calcium Level 7.4 mg/dL (8.5-10.1) Total Bilirubin 0.4 mg/dL (0.2-1.0) Aspartate Amino Transf (AST/SGOT) 14 U/L (15-37) Alanine Aminotransferase (ALT/SGPT) 12 U/L (16-63) Alkaline Phosphatase 102 U/L (46-116) Total Protein 5.2 g/dL (6.4-8.2) Albumin 1.5 g/dL (3.4-5.0) Albumin/Globulin Ratio 0.4 (1.0-1.7) White Blood Count 5.9 x10^3/uL (4.0-11.0) 6.1 x10^3/uL (4.0-11.0) Red Blood Count 2.40 x10^6/uL (4.30-5.70) 2.42 x10^6/uL (4.30-5.70) Hemoglobin 7.0 g/dL (13.0-17.5) 6.9 g/dL (13.0-17.5) Hematocrit 20.3 % (39.0-53.0) 20.6 % (39.0-53.0) Mean Corpuscular Volume 85 fL (79-100) 85 fL (79-100) Mean Corpuscular Hemoglobin 29 pg (25-35) 29 pg (25-35) Mean Corpuscular Hemoglobin Concent 35 g/dL (31-37) 34 g/dL (31-37) Red Cell Distribution Width 15.8 % (11.5-14.5) 15.9 % (11.5-14.5) Platelet Count 358 x10^3/uL (140-400) 372 x10^3/uL (140-400) Neutrophils (%) (Auto) 76 % (31-73) Lymphocytes (%) (Auto) 13 % (24-48) Monocytes (%) (Auto) 9 % (0-9) Eosinophils (%) (Auto) 1 % (0-3) Basophils (%) (Auto) 1 % (0-3) Neutrophils # (Auto) 4.5 x10^3/uL (1.8-7.7) Lymphocytes # (Auto) 0.8 x10^3/uL (1.0-4.8) Monocytes # (Auto) 0.5 x10^3/uL (0.0-1.1) Eosinophils # (Auto) 0.1 x10^3/uL (0.0-0.7) Basophils # (Auto) 0.1 x10^3/uL (0.0-0.2) Glucose (Fingerstick) 174 mg/dL (70-99) Test 03/27/20 17:10 03/27/20 20:32 03/28/20 05:55 03/28/20 07:41 Glucose (Fingerstick) 144 mg/dL (70-99) 220 mg/dL (70-99) 90 mg/dL (70-99) White Blood Count 7.6 x10^3/uL (4.0-11.0) Red Blood Count 2.82 x10^6/uL (4.30-5.70) Hemoglobin 8.1 g/dL (13.0-17.5) Hematocrit 23.7 % (39.0-53.0) Mean Corpuscular Volume 84 fL (79-100) Mean Corpuscular Hemoglobin 29 pg (25-35) Mean Corpuscular Hemoglobin Concent 34 g/dL (31-37) Red Cell Distribution Width 15.9 % (11.5-14.5) Platelet Count 366 x10^3/uL (140-400) Sodium Level 126 mmol/L (136-145) Potassium Level 4.1 mmol/L (3.5-5.1) Chloride Level 94 mmol/L (98-107) Carbon Dioxide Level 26 mmol/L (21-32) Anion Gap 6 (6-14) Blood Urea Nitrogen 7 mg/dL (8-26) Creatinine 1.1 mg/dL (0.7-1.3) Estimated GFR (Cockcroft-Gault) 68.3 Glucose Level 95 mg/dL (70-99) Calcium Level 7.7 mg/dL (8.5-10.1) Thyroid Stimulating Hormone (TSH) 2.987 uIU/mL (0.358-3.74) Laboratory Tests Test 03/27/20 11:30 03/27/20 12:17 03/27/20 17:10 03/27/20 20:32 White Blood Count 6.1 x10^3/uL (4.0-11.0) Red Blood Count 2.42 x10^6/uL (4.30-5.70) Hemoglobin 6.9 g/dL (13.0-17.5) Hematocrit 20.6 % (39.0-53.0) Mean Corpuscular Volume 85 fL (79-100) Mean Corpuscular Hemoglobin 29 pg (25-35) Mean Corpuscular Hemoglobin Concent 34 g/dL (31-37) Red Cell Distribution Width 15.9 % (11.5-14.5) Platelet Count 372 x10^3/uL (140-400) Glucose (Fingerstick) 174 mg/dL (70-99) 144 mg/dL (70-99) 220 mg/dL (70-99) Test 03/28/20 05:55 03/28/20 07:41 White Blood Count 7.6 x10^3/uL (4.0-11.0) Red Blood Count 2.82 x10^6/uL (4.30-5.70) Hemoglobin 8.1 g/dL (13.0-17.5) Hematocrit 23.7 % (39.0-53.0) Mean Corpuscular Volume 84 fL (79-100) Mean Corpuscular Hemoglobin 29 pg (25-35) Mean Corpuscular Hemoglobin Concent 34 g/dL (31-37) Red Cell Distribution Width 15.9 % (11.5-14.5) Platelet Count 366 x10^3/uL (140-400) Sodium Level 126 mmol/L (136-145) Potassium Level 4.1 mmol/L (3.5-5.1) Chloride Level 94 mmol/L (98-107) Carbon Dioxide Level 26 mmol/L (21-32) Anion Gap 6 (6-14) Blood Urea Nitrogen 7 mg/dL (8-26) Creatinine 1.1 mg/dL (0.7-1.3) Estimated GFR (Cockcroft-Gault) 68.3 Glucose Level 95 mg/dL (70-99) Calcium Level 7.7 mg/dL (8.5-10.1) Thyroid Stimulating Hormone (TSH) 2.987 uIU/mL (0.358-3.74) Glucose (Fingerstick) 90 mg/dL (70-99) Medications Active Scripts Medications Dose Route/Sig Max Daily Dose Days Date Category Dose Instructions Etodolac 400 Mg Tablet 1 Tab PO BID 03/16/20 Reported Ondansetron Hcl 8 Mg Tablet 8 Mg PO BID PRN 03/16/20 Reported Oxycodone Hcl Immed.release (Oxycodone Hcl) 15 Mg Tablet 15 Mg PO PRN Q6HRS PRN 03/16/20 Reported Miralax (Polyethylene Glycol 3350) 17 Gm Powd.pack 1 Pkt PO PRN DAILY PRN 04/17/18 Rx Montelukast Sodium Tablet (Montelukast Sodium) 10 Mg Tablet 10 Mg PO DAILY 04/14/18 Reported Basaglar Kwikpen U-100 (Insulin Glargine,Hum.rec.anlog) 100 Unit/1 Ml Insuln.pen 50 Unit SQ HS 04/14/18 Reported Prilosec Otc (Omeprazole Magnesium) 20 Mg Tablet.dr 1 Tab PO DAILY 02/08/16 Reported Novolog Flexpen (Insulin Aspart) 100 Unit/1 Ml Insuln.pen 1 Unit SQ 11/17/15 Reported 15-20 UNITS WITH MEALS TO MAX OF 80 UNITS DAILY Atorvastatin Calcium 20 Mg Tablet 1 Tab PO DAILY 11/17/15 Reported Januvia (Sitagliptin Phosphate) 50 Mg Tablet 1 Tab PO DAILY 11/17/15 Reported Tizanidine Hcl 4 Mg Tablet 1 Tab PO Q6HRS PRN 11/17/15 Reported can have 1-2 tabs Lidoderm (Lidocaine) 700 Mg Adh..patch 1 Patch TP DAILY PRN 11/17/15 Reported Ativan (Lorazepam) 1 Mg Tablet 1 Mg PO BID PRN 11/17/15 Reported Amlodipine Besylate 10 Mg Tablet 10 Mg PO DAILY 11/17/15 Reported Atenolol 25 Mg Tablet 1 Tab PO DAILY 11/17/15 Reported Voltaren (Diclofenac Sodium) 100 Gm Gel..gram. 1 Gm TP QID PRN 11/17/15 Reported Ventolin Hfa Inhaler (Albuterol Sulfate) 18 Gm Hfa.aer.ad 2 Puff IH PRN Q4-6HRS 11/17/15 Reported Cymbalta (Duloxetine Hcl) 60 Mg Capsule.dr 60 Mg PO BID 11/17/15 Reported Impression . 1. Acute respiratory failure with audible upper airway wheezing 03/19 resolved . Could be related to reactive airway disease. The patient has no known asthma. Possibility of vocal cord dysfunction secondary to anxiety would also be a consideration. No recurrence and resolved 2. Anemia, status post transfusion.on going GI bleed-- improved 3. Hypoglycemic encephalopathy, present on admission , improved 4. Chronic kidney disease. hypo Na 5. Abnormal ct chest with basal atelectasis/ vs pneumonia 6. Liver abscess. s/p drain 7. E Coli bacteremia likely intrabdominal source s/p abscess drain 03/21 - Ecoli 8. Abnormal D-Dimer , could be related to Liver abscess . on RA. no suspicion for PE, Neg dopplers 9. ?richie Plan . 1. from pulmonary standpoint stable 2. off Nasal canula, off BIPAP-- remains on room air 3. continue DuoNebs. 4. Pulmicort nebulizer. 5. Follow GI recs 6. Continue antibiotics per ID 7. s/p liver aspiration. 8. dopplers lower extremity neg 9. now on lasix prn per nephro 10. psg as out pt D/W RN will sign off RAHEEM GAMA MD Mar 28, 2020 10:35
--- NOTE | 2020-03-28 10:37 | PDOC ---
Subjective: Subjective: Wants to go home, no GI complaints. Objective: Objective: Possible DC today to [facility] per nurse. No obvious bleeding. Vital Signs: Vital Signs Date Time Temp Pulse Resp B/P (MAP) Pulse Ox O2 Delivery O2 Flow Rate FiO2 03/28/20 08:10 101 124/80 03/28/20 08:00 Room Air 92.0 03/28/20 07:05 99 03/28/20 07:00 98.4 18 98.4 Labs: Laboratory Tests Test 03/27/20 11:30 03/27/20 12:17 03/27/20 17:10 03/27/20 20:32 White Blood Count 6.1 x10^3/uL Red Blood Count 2.42 x10^6/uL Hemoglobin 6.9 g/dL Hematocrit 20.6 % Mean Corpuscular Volume 85 fL Mean Corpuscular Hemoglobin 29 pg Mean Corpuscular Hemoglobin Concent 34 g/dL Red Cell Distribution Width 15.9 % Platelet Count 372 x10^3/uL Glucose (Fingerstick) 174 mg/dL 144 mg/dL 220 mg/dL Test 03/28/20 05:55 03/28/20 07:41 White Blood Count 7.6 x10^3/uL Red Blood Count 2.82 x10^6/uL Hemoglobin 8.1 g/dL Hematocrit 23.7 % Mean Corpuscular Volume 84 fL Mean Corpuscular Hemoglobin 29 pg Mean Corpuscular Hemoglobin Concent 34 g/dL Red Cell Distribution Width 15.9 % Platelet Count 366 x10^3/uL Sodium Level 126 mmol/L Potassium Level 4.1 mmol/L Chloride Level 94 mmol/L Carbon Dioxide Level 26 mmol/L Anion Gap 6 Blood Urea Nitrogen 7 mg/dL Creatinine 1.1 mg/dL Estimated GFR (Cockcroft-Gault) 68.3 Glucose Level 95 mg/dL Calcium Level 7.7 mg/dL Thyroid Stimulating Hormone (TSH) 2.987 uIU/mL Glucose (Fingerstick) 90 mg/dL ORDERED: AFB CULT, KAREN CULT,OTHER COMMENTS: Has specimen been collected/obtained? Y Procedure Result AFB SPECIMEN PROCESSING Final Concentration AFB CULTURE FINAL PENDING AFB CULTURE GRAM STAIN Final Negative Performed at: DA - [facility] [address], [place], [place] [id number] Senior Director Of Strategy: MANOLO Leal MD, Phone: [phone] FUNGAL CULTURE,OTHER PENDING KAREN CULT RES 1 PENDING GRAM STAIN Final Final GRAM NEGATIVE RODS:FEW SQUAMOUS EPI CELL:NONE SEEN PMN (WBCs):MANY Unless otherwise specified, Testing Performed by: [address] [address] For Inquires, the Physician may contact the Microbiology department at [phone] ANAEROBIC-AEROBIC CULTURE Final Final MANY GRAM NEGATIVE RODS on 03/22/20 at 1118 FINAL ID= [ESCHERICHIA COLI] MANY ANAEROBIC GRAM NEGATIVE RODS on 03/23/20 at 1159 FINAL ID= [BACTEROIDES THETAIOTAOMICRON G] MANY FINAL ID= [LACTOBACILLUS SP] ESCHERICHIA COLI BACTEROIDES THETAIOTAOMICRON G LACTOBACILLUS SP ANTIMICROBIAL SUSCEPTIBILITY Final Comment NEG JUWAN 56 ESCHERICHIA COLI ANTIBIOTIC RESULT INTERPRETATION AMPICILLIN/SULBACTAM 16/8 I AMIKACIN <=16 S AMPICILLIN >16 R AMOXICILLIN/K CLAVULANATE <=8/4 S AZTREONAM <=4 S ANTIMICROBIAL SUSCEPTIBILITY Final (continued) CEFTRIAXONE <=1 S CEFTAZIDIME <=1 S CEFOTAXIME <=2 S CEFOXITIN <=8 S CIPROFLOXACIN <=0.25 S CEFEPIME <=2 S CEFUROXIME <=4 S CEFTAZIDIME/AVIBACTAM <=4 S ERTAPENEM <=0.5 S GENTAMICIN <=2 S LEVOFLOXACIN <=0.5 S MEROPENEM <=1 S PIPERACILLIN/TAZOBACTAM <=8 S TRIMETHOPRIM/SULFAMETHOXAZOLE >2/38 R TETRACYCLINE <=4 S TOBRAMYCIN <=2 S Unless otherwise specified, Testing Performed by: [address] [address] For Inquires, the Physician may contact the Microbiology department at [phone] PE: GEN: NAD - sitting on toilet, says he prefers to have all the doors open LUNGS: clear HEART: RRR ABD: non-distended NEURO/PSYCH: A & O 3 A/P: Liver abscess s/p IR drain Bacteremia - E coli, Bacteroides Anemia (h/o ACD/NUHA) - improved w/ transfusion Hyponatremia Rectal bleeding - resolved H/o GERD, PUD Recent cholecystectomy w/ drain and stent placement @ [facility] -- ?DC - okay w/ GI Change to PO PPI. Justicifation of Admission Dx: Justifications for Admission: Justification of Admission Dx: Yes Sepsis: Bacteremia Altered Mental Status: Altered Mental Status ROSAURA ORTEZ Mar 28, 2020 10:36
--- NOTE | 2020-03-28 10:37 | PDOC ---
[facility] PROGRESS NOTE Chief Complaint Chief Complaint GI BLEED - stable Hyponatremia Hepatic mass s/p IR biliary drain History of renal cell carcinoma Recent placement of percutaneous biliary drain for hepatic abscess Severe sepsis Gram negative bacteremia acute METABOLIC ENCEPHALOPATHY - waxing and waning. COPD Normocytic anemia with GI bleed PUD: prepyloric ulcers Biliary stent and mild pneumobilia seen previously. CKD STAGE 3 Cavernous hemangioma. 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 She notes he has had a progressive decline over the last month or so. Patient is encephalopathic and unable to answer questions. Patient given glucagon prior to arrival and blood sugar improved from 55-83. notes issues w/ confusion since cholecystectomy at on 12/25/19. notes an IR drain was placed after a readmission for worsening and remained in place for 3 weeks and was removed at the end of January, then he returned for common bile duct stent placement last week. She notes that she was told that he had a "small spot" on his liver at [facility] and that his sodium was "better" at 129 last week. She also notes he has lost 46# in the past 2 months and she is not aware of any diagnosis for him. Patient is not even speaking, he is moaning and writhing in bed. Has been tested 3x for covid 19 and negative with last check over a week ago. CXR with pulmonary vasculare congestion and CT head negative for acute process. Labs significant for WBC 17.2, Hb 8.2, platelets 244, INR 1.3, Na 123, K 4.7, BUN 49, Cr 3.4, Albumin 1.7, Glucose 97, Mg 1.7, AST 84, ALT 66, Alk phos 228, Bili 1.2. BNP 51261 Admitted to ICU for further care. 03/26/2020 No acute events overnight. Patient has some delirium this morning. With agitation required IV Haldol. Patient is currently oriented and conversing appropriately. Patient's chart, labs, images were reviewed and discussed with RN 03/25/2020 No acute events overnight. Patient's mental status is stable. Patient's chart, labs, images were reviewed and discussed with RN 03/23, need try to transfer to [facility] soon, hgb drop again today, 1 u PRBC ordered, GI and surg following discussed abx with ID, following he is weak, not eating much, DNR reviewed, 03/24, hgb better ID changing abx cultures pending PULM following, needs LTAC likely consider tomorrow Vitals/I&O Vitals/I&O: Vital Signs Date Time Temp Pulse Resp B/P (MAP) Pulse Ox O2 Delivery O2 Flow Rate FiO2 03/28/20 08:10 101 124/80 03/28/20 08:00 Room Air 92.0 03/28/20 07:05 99 03/28/20 07:00 98.4 18 98.4 I & O 03/27/20 03/27/20 03/28/20 15:00 23:00 07:00 Intake Total 877 ml 677 ml 620 ml Output Total 1165 ml Balance 877 ml 677 ml -545 ml Physical Exam Physical Exam: GENERAL: Alert, awake, in bed , coop looks comfortable. HEENT: Normocephalic, atraumatic, anicteric. Oral mucosa dry. No thrush. NECK: Supple. Right IJ present - clean LUNGS: Decreased breath sounds at bases. No wheezing. No accessory muscle use. HEART: S1, S2 regular. No murmurs. ABDOMEN: Mildly distended. Bowel sounds present, nontender, no rebound, no guarding. JULIA with serous fluid. Pump clean in LLQ EXTREMITIES: No edema, no cyanosis. Left elbow wound is clean but now open more. NEUROLOGIC: Alert, awake - confused PSYCHIATRIC: Cooperative. SKIN: no rash General: Alert, Oriented X3, Cooperative, No acute distress Heart: Regular rate Lungs: Clear Abdomen: Soft, No tenderness Extremities: No edema Skin: No significant lesion Labs Labs: Laboratory Tests Test 03/27/20 11:30 03/27/20 12:17 03/27/20 17:10 03/27/20 20:32 White Blood Count 6.1 x10^3/uL (4.0-11.0) Red Blood Count 2.42 x10^6/uL (4.30-5.70) Hemoglobin 6.9 g/dL (13.0-17.5) Hematocrit 20.6 % (39.0-53.0) Mean Corpuscular Volume 85 fL (79-100) Mean Corpuscular Hemoglobin 29 pg (25-35) Mean Corpuscular Hemoglobin Concent 34 g/dL (31-37) Red Cell Distribution Width 15.9 % (11.5-14.5) Platelet Count 372 x10^3/uL (140-400) Glucose (Fingerstick) 174 mg/dL (70-99) 144 mg/dL (70-99) 220 mg/dL (70-99) Test 03/28/20 05:55 03/28/20 07:41 White Blood Count 7.6 x10^3/uL (4.0-11.0) Red Blood Count 2.82 x10^6/uL (4.30-5.70) Hemoglobin 8.1 g/dL (13.0-17.5) Hematocrit 23.7 % (39.0-53.0) Mean Corpuscular Volume 84 fL (79-100) Mean Corpuscular Hemoglobin 29 pg (25-35) Mean Corpuscular Hemoglobin Concent 34 g/dL (31-37) Red Cell Distribution Width 15.9 % (11.5-14.5) Platelet Count 366 x10^3/uL (140-400) Sodium Level 126 mmol/L (136-145) Potassium Level 4.1 mmol/L (3.5-5.1) Chloride Level 94 mmol/L (98-107) Carbon Dioxide Level 26 mmol/L (21-32) Anion Gap 6 (6-14) Blood Urea Nitrogen 7 mg/dL (8-26) Creatinine 1.1 mg/dL (0.7-1.3) Estimated GFR (Cockcroft-Gault) 68.3 Glucose Level 95 mg/dL (70-99) Calcium Level 7.7 mg/dL (8.5-10.1) Thyroid Stimulating Hormone (TSH) 2.987 uIU/mL (0.358-3.74) Glucose (Fingerstick) 90 mg/dL (70-99) Review of Systems Review of Systems: Other systems are otherwise negative Assessment and Plan Assessmemt and Plan Problems Medical Problems: (1) Acute kidney injury Status: Acute (2) Encephalopathy Status: Acute (3) Hypoglycemia Status: Acute (4) Hyponatremia Status: Acute (5) Seizure Status: Acute Assessment GI BLEED - stable Hyponatremia Hepatic mass s/p IR biliary drain History of renal cell carcinoma Recent placement of percutaneous biliary drain for hepatic abscess Severe sepsis Gram negative bacteremia acute METABOLIC ENCEPHALOPATHY - waxing and waning COPD Normocytic anemia with GI bleed PUD: prepyloric ulcers Biliary stent and mild pneumobilia CKD STAGE 3 Cavernous hemangioma. Acute diastolic CHF with pleural effusion Chronic pain Plan DVT prophylaxis Trend labs Home Meds IV antibiotics Possible discharge to LTAC Comment Review of Relevant I have reviewed the following items clarisse (where applicable) has been applied. Justicifation of Admission Dx: Justifications for Admission: Justification of Admission Dx: Yes Sepsis: Bacteremia Altered Mental Status: Altered Mental Status JACEY VALIENTE III DO Mar 28, 2020 10:36
[2020-03-28 11:00] VITALS: BP 124/78
[2020-03-28] MEDS: tiZANidine 4 MG TABLET. PO PRN ×2 (12:14→18:23)
--- NOTE | 2020-03-28 12:57 | PDOC ---
CARDIO Progress Notes Subjective Subjective: No Chest Pain, No shortness of breath, No Palpitations Vitals Vitals Vital Signs Date Time Temp Pulse Resp B/P (MAP) Pulse Ox O2 Delivery O2 Flow Rate FiO2 03/28/20 12:15 Room Air 03/28/20 11:00 98.3 89 18 124/78 (93) 100 98.3 03/28/20 08:00 92.0 Weight Weight [ ] Input and Output Intake and Output Intake and Output 03/28/20 06:59 Intake Total 2174 ml Output Total 1165 ml Balance 1009 ml Intake Oral 1540 ml Blood Product IV Normal Saline Flush 634 ml Output Urine Total 1150 ml Drainage Total 15 ml # Voids 6 # Bowel Movements 6 Laboratory Labs Laboratory Tests Test 03/27/20 17:10 03/27/20 20:32 03/28/20 05:55 03/28/20 07:41 Glucose (Fingerstick) 144 mg/dL (70-99) 220 mg/dL (70-99) 90 mg/dL (70-99) White Blood Count 7.6 x10^3/uL (4.0-11.0) Red Blood Count 2.82 x10^6/uL (4.30-5.70) Hemoglobin 8.1 g/dL (13.0-17.5) Hematocrit 23.7 % (39.0-53.0) Mean Corpuscular Volume 84 fL (79-100) Mean Corpuscular Hemoglobin 29 pg (25-35) Mean Corpuscular Hemoglobin Concent 34 g/dL (31-37) Red Cell Distribution Width 15.9 % (11.5-14.5) Platelet Count 366 x10^3/uL (140-400) Sodium Level 126 mmol/L (136-145) Potassium Level 4.1 mmol/L (3.5-5.1) Chloride Level 94 mmol/L (98-107) Carbon Dioxide Level 26 mmol/L (21-32) Anion Gap 6 (6-14) Blood Urea Nitrogen 7 mg/dL (8-26) Creatinine 1.1 mg/dL (0.7-1.3) Estimated GFR (Cockcroft-Gault) 68.3 Glucose Level 95 mg/dL (70-99) Calcium Level 7.7 mg/dL (8.5-10.1) Thyroid Stimulating Hormone (TSH) 2.987 uIU/mL (0.358-3.74) Test 03/28/20 11:27 Glucose (Fingerstick) 154 mg/dL (70-99) Microbiology Micro Microbiology 03/21/20 AFB Specimen Processing Tissue - Final, Resulted 03/21/20 Acid Fast Bacilli Culture, Resulted Pending 03/21/20 Gram Stain - Final, Resulted 03/21/20 Fungal Culture, Resulted Pending 03/21/20 Fungal Culture Result 1, Resulted Pending 03/16/20 Blood Culture - Final, Complete NO GROWTH AFTER 5 DAYS Review of Systems Constitutional: yes: other (CONFUSED) Physical Exam HEENT: Neck Supple W Full Motion Chest: Symmetric LUNGS: Other (diminished) Heart: RRR (sinus tachycardia) Abdomen: Other (soft) Extremities: No Edema Neurology: alert, confused Justicifation of Admission Dx: Justifications for Admission: Justification of Admission Dx: Yes Sepsis: Bacteremia Altered Mental Status: Altered Mental Status SRINI NIX APRN Mar 28, 2020 12:57
[2020-03-28 15:00] VITALS: BP 137/73
--- NOTE | 2020-03-28 15:58 | NUR ---
Wound care: Patient seen per wound care for bedside debridement with JOSETTE Leo of DFUs to left and right great toes. patient is much more alert and orientated today. verbal and written consent obtained. After debridement of left and right great toes, wounds redressed with Xeroform gauze, covered with gauze and tape, recommend to change every 3 days. patient tolerated procedure and dressing changes well. The left elbow laceration wound cleansed and redressed with Ashley collagen packing and covered with foam dressing, recommend to change every 3 days. Dressing change instructions left in room and spoke with RN regarding POC, pt leaving today or tomorrow for [facility]. Patient repositioned in bed and call light in reach.
--- NOTE | 2020-03-28 15:59 | RAD ---
CT scan of the chest without contrast 03/28/2020 CLINICAL HISTORY: History of pleural effusion. History of left nephrectomy for renal cell cancer. TECHNIQUE: Unenhanced contiguous, 5 mm axial sections were obtained through the chest and upper abdomen. One or more of the following individualized dose reduction techniques were utilized for this study: 1. Automated exposure control. 2. Adjustment of the mA and/or kV according to patient size. 3. Use of iterative reconstruction technique. Findings: Comparison study is dated 03/18/2020. A right internal jugular central venous catheter is again noted. The heart is normal in size. The thoracic aorta is mildly tortuous. Calcifications are seen involving predominantly the left coronary artery. There is a small to moderate-sized right pleural effusion which has increased in size since the previous examination. There is a very small left pleural effusion which has decreased in size since the previous study. Dependent atelectasis is seen involving both lower lobes, right greater than left. No pneumothorax is noted. A 6 mm calcified granuloma is seen involving the left upper lobe. Images through the upper abdomen demonstrate a pigtail drainage catheter within the abscess within the right lobe of the liver. Surgical clips are seen within the gallbladder fossa consistent with a cholecystectomy. A stent is seen within the common bile duct. The osseous structures are unchanged. IMPRESSION: 1. Small to moderate-sized right pleural effusion which has increased in size. 2. Very small left pleural effusion which has decreased in size. Electronically signed by: Nathen Serrano MD (03/28/2020 3:56 PM) [id number]
--- NOTE | 2020-03-28 16:23 | PDOC ---
Progress Note-Wound Care SUBJECTIVE Bilat great toe DFUs with callus formation requiring serial debridement and left elbow laceration OBJECTIVE Vital Signs Vital Signs Date Time Temp Pulse Resp B/P (MAP) Pulse Ox O2 Delivery O2 Flow Rate FiO2 03/27/20 07:49 98 Room Air 03/27/20 07:59 97.8 96 18 111/69 (83) 97.8 03/27/20 08:00 92.0 Vital Signs Date Time Temp Pulse Resp B/P (MAP) Pulse Ox O2 Delivery O2 Flow Rate FiO2 03/28/20 15:00 98.4 98 18 137/73 (94) 100 Room Air 98.4 03/28/20 08:00 92.0 Physical Exam: Patient awake and alert, pleasant in conversation. Respirations are even and unlabored. Patient is on room air not requiring supplemental oxygen. Abdomen is soft, nondistended and nontender to palpation. Skin is warm dry and pink. Patient has a left elbow laceration that is healing by primary intention. Wound measures 0.8 x 1.9 x 0.6 there is undermining from 12-12 with a max of 2.1. Bone is no longer palpable. There is increased surrounding erythema. There is also increased serosanguineous drainage. There is no odor following cleansing. The left great toe has callus formation over the distal aspect. Following patient consent and application of topical lidocaine nonviable tissue was remov ed with a sterile curette. Following procedure there was a 0.1 x 0.1 x 0.1 open wound. Minimal bleeding was controlled with pressure. Patient denied pain throughout procedure. The right great toe has an open wound that runs laterally and measured 1x0.1x0.1cm with surrounding callus. Callus was debrided along with minimal viable tissue with a sterile curette. Patient denied pain with procedure. Minimal bleeding was controlled with pressure. Following procedure there are multiple small, superficial wounds. Total measurement is 2.6 x 2 x 0.2 cm. PLAN 1) left elbow laceration -Healing through secondary intention -Wound culture obtained due to increased erythema surrounding wound and increased drainage -Cleansed and pat dry. Apply Ashley Ag to wound bed and cover with foam adhesive. Change every other day or as needed if dressing loose or saturated. 2) left great toe and right great toe diabetic foot ulcers, skin breakdown with significant callus buildup -Callus debrided at bedside today -Cleanse and pat dry. Apply skin prep to surrounding tissue. Cover with Xeroform and foam adhesive. Change every 3 days or as needed if dressing loose or saturated. -Recommend consult with Jennifer for diabetic foot wear to prevent future ulce rations -Dietary consulting to ensure patient with adequate protein intake for optimal wound healing KOJO TREJO APRN Mar 28, 2020 16:23
[2020-03-28 19:00] VITALS: BP 94/63
[2020-03-28] MEDS: ATORVASTATIN CALCIUM 20 MG TABLET PO SCH (21:22)
[2020-03-28] MEDS: INSULIN GLARGINE SYRINGE. SQ SCH (21:28)
[2020-03-28 23:00] VITALS: BP_SYST 104; BP_SYST 142; BP_DIAS 71; BP_DIAS 76
[2020-03-29 03:00] VITALS: BP 99/53
[2020-03-29] MEDS: tiZANidine 4 MG TABLET. PO PRN ×3 (03:53→16:39)
[2020-03-29] MEDS: oxyCODONE IR 5 MG TABLET PO PRN ×3 (03:54→16:39)
[2020-03-29] MEDS: metroNIDAZOLE 500 MG TABLET PO SCH ×2 (05:10→15:28)
[2020-03-29] MEDS: DICLOFENAC SODIUM 1% TOPICAL GEL 100GM TUBE. TP PRN (05:21)
[2020-03-29 07:00] VITALS: BP 97/45
[2020-03-29] MEDS ORDERED: PANTOPRAZOLE 40 MG TABLET.DR. PO SCH (07:30)
[2020-03-29] MEDS: IPRATRPIUM/ALBUTEROL 0.5/2.5MG 3 ML NEBU. NEB SCH ×3 (07:33→15:37)
[2020-03-29] MEDS: BUDESONIDE 0.5 MG/2 ML NEBU. NEB SCH (07:33)
[2020-03-29] MEDS: DULoxetine HCL 30 MG CAPSULE.DR PO SCH (08:16)
[2020-03-29] MEDS: LINAGLIPTIN 5 MG TABLET PO SCH (08:16)
[2020-03-29] MEDS: ASCORBIC ACID 500 MG TABLET PO SCH (08:16)
[2020-03-29] MEDS: cefTRIAXone IV Push 2 GM VIAL. IVP SCH (08:16)
[2020-03-29] MEDS: LACTOBACILLUS RHAMNOSUS GG 1 CAPSULE. PO SCH (08:16)
[2020-03-29] MEDS: MONTELUKAST SODIUM 10 MG TABLET. PO SCH (08:16)
[2020-03-29] MEDS: MULTIVITAMIN with MINERAL TABLET. PO SCH (08:16)
[2020-03-29] MEDS: METOPROLOL TART IMMED RELEASE 25 MG TABLET. PO SCH (08:18)
[2020-03-29] MEDS: INSULIN LISPRO 300 UNITS/3 ML VIAL. SQ SCH ×3 (08:37→16:30)
[2020-03-29] MEDS: amLODIPine BESYLATE 5 MG TABLET PO SCH (09:00)
--- NOTE | 2020-03-29 09:54 | PDOC ---
Date of Service: DATE: 03/29/20 TIME: 09:42 Subjective: Subjective: No GI complaints. Says waiting on a bed at [facility]. Objective: Vital Signs: Vital Signs Date Time Temp Pulse Resp B/P (MAP) Pulse Ox O2 Delivery O2 Flow Rate FiO2 03/29/20 08:18 78 97/45 03/29/20 07:35 Room Air 03/29/20 07:00 98.0 17 97 98.0 03/28/20 08:00 92.0 Labs: Laboratory Tests Test 03/28/20 11:27 03/28/20 16:20 03/28/20 21:20 03/29/20 07:53 Glucose (Fingerstick) 154 mg/dL 176 mg/dL 188 mg/dL 165 mg/dL PE: GEN: NAD LUNGS: CTAB HEART: RRR ABD: non-tender, drain purulent NEURO/PSYCH: A & O 3 A/P: Liver abscess s/p IR drain, bacteremia ACD/NUHA - improved w/ transfusion; no further rectal bleeding -- ?DC to [facility] soon Continue PPI, monitor Hgb, interval CT soon. Justicifation of Admission Dx: Justifications for Admission: Justification of Admission Dx: Yes Sepsis: Bacteremia Altered Mental Status: Altered Mental Status ROSAURA ORTEZ Mar 29, 2020 09:54
--- NOTE | 2020-03-29 09:58 | NUR ---
SW following. Discussed with RN, awaiting notification from [facility] about bed availability today. KAMRAN will continue to follow. Addendum: 03/29/20 at 1242 by FREYA ANDREW Bed available at [facility] today. Transportation arranged for [phone] via [employer] RN and pt's notified.
--- NOTE | 2020-03-29 10:39 | PDOC ---
Infectious Disease Note Subjective Subjective feeling better ROS ROS no n/v/d/sob Vital Sign Vital Signs Vital Signs Date Time Temp Pulse Resp B/P (MAP) Pulse Ox O2 Delivery O2 Flow Rate FiO2 03/29/20 10:19 Room Air 03/29/20 08:18 78 97/45 03/29/20 07:00 98.0 17 97 98.0 03/28/20 08:00 92.0 Physical Exam PHYSICAL EXAM GENERAL: Alert, awake, in bed , coop looks comfortable. HEENT: Normocephalic, atraumatic, anicteric. Oral mucosa dry. No thrush. NECK: Supple. Right IJ present - clean LUNGS: Decreased breath sounds at bases. No wheezing. No accessory muscle use. HEART: S1, S2 regular. No murmurs. ABDOMEN: Mildly distended. Bowel sounds present, nontender, no rebound, no guarding. JULIA with serous fluid. Pump clean in LLQ EXTREMITIES: No edema, no cyanosis. Left elbow wound is clean but now open mor e. NEUROLOGIC: Alert, awake - confused PSYCHIATRIC: Cooperative. SKIN: no rash Labs Lab Laboratory Tests Test 03/28/20 11:27 03/28/20 16:20 03/28/20 21:20 03/29/20 07:53 Glucose (Fingerstick) 154 mg/dL (70-99) 176 mg/dL (70-99) 188 mg/dL (70-99) 165 mg/dL (70-99) Micro Microbiology 03/21/20 AFB Specimen Processing Tissue - Final, Resulted 03/21/20 Acid Fast Bacilli Culture, Resulted Pending 03/21/20 Gram Stain - Final, Resulted 03/21/20 Fungal Culture, Resulted Pending 03/21/20 Fungal Culture Result 1, Resulted Pending 03/16/20 Blood Culture - Final, Complete NO GROWTH AFTER 5 DAYS Objective Assessment 1. Severe Sepsis present on admission from gram-negative bacteremia.03/15. 03/16 - neg 2. E Coli bacteremia ? intrabdominal source s/p abscess drain 03/21 - Ecoli and bacteroides 3. Leukocytosis and lactic acidosis.Solumedrol - 03/18/PRBCs - better 4. Anemia, status post PRBC.03/21 and 03/23- bleed scan neg 03/21 5. Hyponatremia. 6. Encephalopathy - resolving, likely metabolic, CT head negative 7. History of renal cancer.S/P Nephrectomy 8. Abnormal LFTs ,Liver mass 9. History of ALLERGIES TO CLINDAMYCIN AND LEVAQUIN. 10. Recent placement of metallic stent 11. Thrombocytopenia - better? Sepsis vs other 12 COVID-19 neg 03/19 13. Back pain - CT without gross findings 14. Left elbow wound - open but clean - Plan Plan of Care Flagyl for Bacteroides 03/24 XRAY L elbow -reviewed Cont Ceftriaxone 03/20 F/u IR cults - F/U AM labs. Anemia per primary Electrolytes per primary Maintain aspiration precaution. Local wound care as directed Discussed with nursing staff d/c on iv Invanz f/u with me in 2 wks wkly cbc, bun/cr GARY JAMES MD Mar 29, 2020 10:39
[2020-03-29 10:40] VITALS: BP 104/58
--- NOTE | 2020-03-29 10:54 | PDOC ---
DATE OF SERVICE DATE: 03/29/20 SUBJECTIVE ROS Stable , states feeling better OBJECTIVE Vital Signs Vital Signs Date Time Temp Pulse Resp B/P (MAP) Pulse Ox O2 Delivery O2 Flow Rate FiO2 03/29/20 10:40 98.0 82 17 104/58 (73) 97 Room Air 98.0 03/28/20 08:00 92.0 I & 0 Intake and Output 03/29/20 07:00 Intake Total 1160 ml Output Total 145 ml Balance 1015 ml Intake Oral 1160 ml Output Urine Total 125 ml Drainage Total 20 ml # Voids 5 PHYSICAL EXAM Physical Exam GENERAL: NAD HEENT: OM moist NECK: Supple LUNGS: Decreased breath sounds at bases No accessory muscle use. HEART: S1, S2 regular. No murmurs. ABDOMEN: Bowel sounds present, nontender EXTREMITIES: No edema, no cyanosis. NEUROLOGIC: Alert, awake - PSYCHIATRIC: Cooperative. SKIN: no rash DIAGNOSIS/ASSESSMENT Assessment & Plan HypoNatremia - Stable at 126 ,present since 03/15 , suspect SIADH S/P 3 % Saline , CT chest Bilat Pl effusion , Monitor No labs this am, anticipating dc to [facility] - Resolved CKD Stage 2/3 - baseline Cr 0.9-1.1 Acute respiratory failure with audible upper airway wheezing 03/19 resolved Small to moderate-sized right pleural effusion which has increased in size Anemia, status post transfusion.on going GI bleed-- improved Hypoglycemic encephalopathy, present on admission , improved Liver abscess. s/p drain E Coli bacteremia likely intrabdominal source s/p abscess drain 03/21 - Ecoli COMMENT/RELEVANT DATA Meds Current Medications Medications (Trade) Dose Ordered Sig/Tory Start Time Stop Time Status Last Admin Dose Admin Acetaminophen (Tylenol Supp) 650 mg PRN Q6HRS PRN 03/16/20 23:00 03/21/20 17:29 650 MG Acetaminophen (Tylenol) 650 mg 1X ONCE 03/21/20 17:15 03/21/20 17:16 DC Albumin Human 500 ml @ 125 mls/hr PRN DAILY PRN 03/18/20 15:45 03/18/20 16:07 125 MLS/HR Albuterol Sulfate (Ventolin Neb Soln) 2.5 mg PRN Q4HRS PRN 03/16/20 08:30 Albuterol/ Ipratropium (Duoneb) 3 ml RTQID 03/18/20 12:00 03/29/20 07:33 3 ML Amino Acids/ Glycerin/ Electrolytes 1,000 ml @ 80 mls/hr [id number] 03/20/20 14:00 03/21/20 12:25 DC 03/21/20 01:55 80 MLS/HR Amlodipine Besylate (Norvasc) 5 mg DAILY 03/27/20 09:00 03/28/20 08:09 5 MG Ascorbic Acid (Vitamin C) 500 mg DAILY 03/25/20 13:00 03/29/20 08:16 500 MG Atenolol (Tenormin) 25 mg DAILY 03/17/20 14:00 03/17/20 14:42 DC Atorvastatin Calcium (Lipitor) 20 mg QHS 03/16/20 21:00 03/28/20 21:22 20 MG Budesonide (Pulmicort) 0.5 mg RTBID 03/18/20 20:00 03/29/20 07:33 0.5 MG Ceftriaxone Sodium (Rocephin) 2 gm Q24H 03/20/20 08:00 03/29/20 08:16 2 GM Dextrose (Dextrose 50%-Water Syringe) 12.5 gm PRN Q15MIN PRN 03/16/20 08:00 Dextrose/Sodium Chloride 1,000 ml @ 150 mls/hr Q6H40M 03/17/20 17:30 03/18/20 13:23 DC 03/18/20 02:00 150 MLS/HR Diclofenac Sodium (Voltaren) 75 mg BID 03/17/20 21:00 03/17/20 20:22 DC Diphenhydramine HCl (Benadryl) 25 mg PRN Q6HRS PRN 03/21/20 11:00 Duloxetine HCl (Cymbalta) 60 mg BID 03/16/20 09:00 03/29/20 08:16 60 MG Fentanyl Citrate (Fentanyl 2ml Vial) 25 mcg PRN Q1HR PRN 03/26/20 09:30 03/28/20 21:21 25 MCG Furosemide (Lasix) 40 mg 1X ONCE 03/26/20 12:00 03/26/20 12:07 DC 03/26/20 12:22 40 MG Haloperidol Lactate (Haldol Inj) 5 mg PRN Q6HRS PRN 03/16/20 10:45 03/26/20 07:14 5 MG Heparin Sodium (Porcine) (HEPARIN for NUC MED) 100 unit 1X ONCE 03/21/20 14:45 03/21/20 14:46 DC Heparin Sodium (Porcine) (Heparin Sodium) 5,000 unit Q8HRS 03/16/20 22:00 03/18/20 14:34 DC 03/18/20 05:01 5,000 UNIT Hydromorphone HCl 30 ml @ 0 mls/hr CONT PRN PRN 03/22/20 15:45 03/25/20 13:14 DC 03/24/20 21:35 0 MLS/HR Hydromorphone HCl (Dilaudid) 0.5 mg PRN Q1HR PRN 03/21/20 21:00 03/25/20 13:14 DC 03/22/20 13:11 0.5 MG Insulin Glargine (Lantus Syringe) 5 unit QHS 03/18/20 21:00 03/28/20 21:28 5 UNIT Insulin Human Lispro (HumaLOG) 10 units 1X ONCE 03/21/20 10:45 03/21/20 10:46 DC Ketorolac Tromethamine (Toradol 15mg Vial) 15 mg 1X ONCE 03/17/20 20:15 03/17/20 20:22 DC 03/17/20 20:34 15 MG Lactobacillus Rhamnosus (Culturelle) 1 cap BID 03/20/20 21:00 03/29/20 08:16 1 CAP Lidocaine (Lidoderm) 1 patch PRN DAILY PRN 03/16/20 08:00 03/17/20 07:16 DC Lidocaine HCl (Buffered Lidocaine 1%) 3 ml 1X ONCE 03/25/20 10:45 03/25/20 10:46 DC Linagliptin (Tradjenta) 5 mg DAILY 03/16/20 09:00 03/29/20 08:16 5 MG Lorazepam (Ativan Inj) 1 mg PRN Q6HRS PRN 03/22/20 00:45 03/22/20 07:48 DC Lorazepam (Ativan) 1 mg PRN BID PRN 03/17/20 14:00 03/28/20 12:14 1 MG Magnesium Sulfate 50 ml @ 25 mls/hr 1X ONCE 03/23/20 10:30 03/23/20 12:29 DC 03/23/20 10:30 25 MLS/HR Meropenem 500 mg/ Sodium Chloride 50 ml @ 100 mls/hr Q6HRS 03/18/20 13:30 03/20/20 07:33 DC 03/20/20 05:38 100 MLS/HR Methylprednisolone Sodium Succinate (SOLU-Medrol 125MG VIAL) 125 mg 1X ONCE 03/18/20 13:00 03/18/20 13:01 DC 03/18/20 12:26 125 MG Metoprolol Tartrate (Lopressor Vial) 5 mg PRN Q6HRS PRN 03/18/20 15:45 Metoprolol Tartrate (Lopressor) 25 mg 1X ONCE 03/17/20 21:00 03/17/20 21:01 DC 03/17/20 21:12 25 MG Metronidazole (Flagyl) 500 mg Q8HRS 03/24/20 11:00 03/29/20 05:10 500 MG Midazolam HCl (Versed) 2 mg 1X ONCE 03/21/20 10:00 03/21/20 10:10 DC 03/21/20 10:00 2 MG Montelukast Sodium (Singulair) 10 mg DAILY 03/16/20 09:00 03/29/20 08:16 10 MG Multivitamins (Thera M Plus) 1 tab DAILY 03/25/20 13:00 03/29/20 08:16 1 TAB Naloxone HCl (Narcan) 0.4 mg PRN Q2MIN PRN 03/22/20 15:30 Non-Formulary Medication (Albuterol Sulfate (Ventolin Hfa Inhaler)) 2 puff PRN Q4-6HRS 03/16/20 08:00 UNV Non-Formulary Medication (Ondansetron Hcl ) 8 mg PRN BID PRN 03/17/20 14:00 03/18/20 16:12 DC Norepinephrine Bitartrate 8 mg/ Dextrose 258 ml @ 17.705 mls/ hr CONT PRN 03/18/20 15:45 03/28/20 12:59 DC Ondansetron HCl (Zofran Odt) 8 mg PRN BID PRN 03/18/20 16:15 Ondansetron HCl (Zofran) 4 mg PRN Q4HRS PRN 03/16/20 21:00 Oxycodone HCl (Roxicodone) 15 mg PRN Q6HRS PRN 03/17/20 14:15 03/29/20 10:19 15 MG Pantoprazole Sodium (PROTONIX VIAL for IV PUSH) 40 mg BIDAC 03/18/20 16:30 03/28/20 10:37 DC 03/28/20 08:08 40 MG Pantoprazole Sodium (Protonix) 40 mg DAILYAC 03/29/20 07:30 03/29/20 08:16 40 MG Piperacillin Sod/ Tazobactam Sod (Zosyn Per Pharmacy) 1 each PRN DAILY PRN 03/17/20 20:30 03/18/20 13:08 DC Piperacillin Sod/ Tazobactam Sod 3.375 gm/Sodium Chloride 50 ml @ 100 mls/hr Q6H 03/17/20 21:00 03/18/20 12:23 DC 03/18/20 08:37 100 MLS/HR Polyethylene Glycol (miraLAX PACKET) 17 gm PRN DAILY PRN 03/16/20 08:00 Potassium Chloride (Klor-Con) 40 meq 1X ONCE 03/26/20 12:00 03/26/20 12:07 DC 03/26/20 12:22 40 MEQ Sodium Chloride 500 ml @ 30 mls/hr CONT PRN 03/25/20 13:00 03/26/20 17:07 DC 03/26/20 05:37 30 MLS/HR Sodium Chloride 154 meq/Dextrose 1,038.5 ml @ 75 mls/hr [id number] 03/17/20 04:45 03/17/20 13:10 DC 03/17/20 04:45 75 MLS/HR Tizanidine HCl (Zanaflex) 4 mg PRN Q6HRS PRN 03/17/20 14:00 03/29/20 10:19 4 MG Lab Laboratory Tests Test 03/28/20 11:27 03/28/20 16:20 03/28/20 21:20 03/29/20 07:53 Glucose (Fingerstick) 154 mg/dL (70-99) 176 mg/dL (70-99) 188 mg/dL (70-99) 165 mg/dL (70-99) Results All relevant outside records, renal labs, imaging studies, telemetry/EKG's were reviewed. Justicifation of Admission Dx: Justifications for Admission: Justification of Admission Dx: Yes Sepsis: Bacteremia Altered Mental Status: Altered Mental Status HOWARD AGUILAR MD Mar 29, 2020 10:54
--- NOTE | 2020-03-29 11:27 | PDOC ---
[employer] PROGRESS NOTE Date of Service DOS: DATE: 03/29/20 TIME: 11:20 Chief Complaint Chief Complaint GI BLEED - stable Hyponatremia Hepatic mass s/p IR biliary drain History of renal cell carcinoma Recent placement of percutaneous biliary drain for hepatic abscess Severe sepsis Gram negative bacteremia acute METABOLIC ENCEPHALOPATHY - waxing and waning. COPD Normocytic anemia with GI bleed PUD: prepyloric ulcers Biliary stent and mild pneumobilia seen previously. CKD STAGE 3 Cavernous hemangioma. Acute diastolic CHF with pleural effusion Chronic pain History of Present Illness History of Present Illness 03/29/2020 Patient is seen and examined Patient is at baseline Patient is alert and oriented, resting in NAD Charts reviewed Discussed with RN 03/28/2020 Patient is seen and examined Patient is alert and oriented utilizing the commode Charts reviewed Discussed with RN 03/27/2020 Patient is seen and examined Patient is alert and resting comfortably Charts discussed and reviewed Discussed with RN Mr Corona is a 59yo M w/ PMHx chronic Bronchitis, RCC s/p left nephrectomy 2009, Diabetes-Type II, High Cholesterol, Hypertension, 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 She notes he has had a progressive decline over the last month or so. Patient is encephalopathic and unable to answer questions. Patient given glucagon prior to arrival and blood sugar improved from 55-83. notes issues w/ confusion since cholecystectomy at on 12/25/19. notes an IR drain was placed after a readmission for worsening and remained in place for 3 weeks and was removed at the end of January, then he returned for common bile duct stent placement last week. She notes that she was told that he had a "small spot" on his liver at [facility] and that his sodium was "better" at 129 last week. She also notes he has lost 46# in the past 2 months and she is not aware of any diagnosis for him. Patient is not even speaking, he is moaning and writhing in bed. Has been tested 3x for covid 19 and negative with last check over a week ago. CXR with pulmonary vasculare congestion and CT head negative for acute process. Labs significant for WBC 17.2, Hb 8.2, platelets 244, INR 1.3, Na 123, K 4.7, BUN 49, Cr 3.4, Albumin 1.7, Glucose 97, Mg 1.7, AST 84, ALT 66, Alk phos 228, Bili 1.2. BNP [id number] Admitted to ICU for further care. 03/26/2020 No acute events overnight. Patient has some delirium this morning. With agitation required IV Haldol. Patient is currently oriented and conversing appropriately. Patient's chart, labs, images were reviewed and discussed with RN 03/25/2020 No acute events overnight. Patient's mental status is stable. Patient's chart, labs, images were reviewed and discussed with RN 03/23, need try to transfer to [facility] soon, hgb drop again today, 1 u PRBC ordered, GI and surg following discussed abx with ID, following he is weak, not eating much, DNR reviewed, 03/24, hgb better ID changing abx cultures pending PULM following, needs LTAC likely consider tomorrow Vitals/I&O Vitals/I&O: Vital Signs Date Time Temp Pulse Resp B/P (MAP) Pulse Ox O2 Delivery O2 Flow Rate FiO2 03/29/20 10:40 98.0 82 17 104/58 (73) 97 Room Air 98.0 03/28/20 08:00 92.0 I & O 03/28/20 03/28/20 03/29/20 15:00 23:00 07:00 Intake Total 120 ml 360 ml 680 ml Output Total 145 ml Balance 120 ml 360 ml 535 ml Physical Exam Physical Exam: GENERAL: Alert, awake, in bed , coop looks comfortable. HEENT: Normocephalic, atraumatic, anicteric. Oral mucosa dry. No thrush. NECK: Supple. Right IJ present - clean LUNGS: Decreased breath sounds at bases. No wheezing. No accessory muscle use. HEART: S1, S2 regular. No murmurs. ABDOMEN: Mildly distended. Bowel sounds present, nontender, no rebound, no guarding. JULIA with serous fluid. Pump clean in LLQ EXTREMITIES: No edema, no cyanosis. Left elbow wound is clean but now open more. NEUROLOGIC: Alert, awake - confused PSYCHIATRIC: Cooperative. SKIN: no rash General: Alert, Oriented X3, Cooperative, No acute distress Heart: Regular rate Lungs: Clear Abdomen: Soft, No tenderness Extremities: No clubbing, No cyanosis, No edema Skin: No rashes, No significant lesion Labs Labs: Laboratory Tests Test 03/28/20 11:27 03/28/20 16:20 03/28/20 21:20 03/29/20 07:53 Glucose (Fingerstick) 154 mg/dL (70-99) 176 mg/dL (70-99) 188 mg/dL (70-99) 165 mg/dL (70-99) Test 03/29/20 11:08 Glucose (Fingerstick) 129 mg/dL (70-99) Assessment and Plan Assessmemt and Plan Problems Medical Problems: (1) Acute kidney injury Status: Acute (2) Encephalopathy Status: Acute (3) Hypoglycemia Status: Acute (4) Hyponatremia Status: Acute (5) Seizure Status: Acute ASSESSMENT GI BLEED - stable Hyponatremia Hepatic mass s/p IR biliary drain History of renal cell carcinoma Recent placement of percutaneous biliary drain for hepatic abscess Severe sepsis Gram negative bacteremia acute METABOLIC ENCEPHALOPATHY - waxing and waning COPD Normocytic anemia with GI bleed PUD: prepyloric ulcers Biliary stent and mild pneumobilia CKD STAGE 3 Cavernous hemangioma. Acute diastolic CHF with pleural effusion Chronic pain PLAN Probable discharge to LTAC Continue current care Trend labs Home Meds IV antibiotics DVT prophylaxis DNR Appreciate subspecialty input Comment Review of Relevant I have reviewed the following items clarisse (where applicable) has been applied. Medications: Current Medications Medications (Trade) Dose Ordered Sig/Tory Route PRN Reason Start Time Stop Time Status Last Admin Dose Admin Pantoprazole Sodium (Protonix) 40 mg DAILYAC PO 03/29/20 07:30 03/29/20 08:16 Justicifation of Admission Dx: Justifications for Admission: Justification of Admission Dx: Yes Sepsis: Bacteremia Altered Mental Status: Altered Mental Status JACEY VALIENTE III DO Mar 29, 2020 11:27
[2020-03-29] MEDS ORDERED: LIDOCAINE WITH 8.4% SOD BICARB 3 ML DISP.SYRIN. ONE (11:54)
--- NOTE | 2020-03-29 12:32 | PDOC ---
MARÍA KRAUSE FIREMAN 03/29/20 1232: SURGICAL PROGRESS NOTE DATE: 03/29/20 TIME: 12:31 Subjective waiting for picc line hungry for lunch no drain pain Vital Signs Vital Signs Date Time Temp Pulse Resp B/P (MAP) Pulse Ox O2 Delivery O2 Flow Rate FiO2 03/29/20 11:24 Room Air 03/29/20 10:40 98.0 82 17 104/58 (73) 97 98.0 03/28/20 08:00 92.0 I&O Intake and Output 03/29/20 07:00 Intake Total 1160 ml Output Total 145 ml Balance 1015 ml Intake Oral 1160 ml Output Urine Total 125 ml Drainage Total 20 ml # Voids 5 General: Alert, Oriented X3, Cooperative Abdomen: Soft, No tenderness, Other (drain in place) Labs Laboratory Tests Test 03/27/20 17:10 03/27/20 20:32 03/28/20 05:55 03/28/20 07:41 Glucose (Fingerstick) 144 mg/dL (70-99) 220 mg/dL (70-99) 90 mg/dL (70-99) White Blood Count 7.6 x10^3/uL (4.0-11.0) Red Blood Count 2.82 x10^6/uL (4.30-5.70) Hemoglobin 8.1 g/dL (13.0-17.5) Hematocrit 23.7 % (39.0-53.0) Mean Corpuscular Volume 84 fL (79-100) Mean Corpuscular Hemoglobin 29 pg (25-35) Mean Corpuscular Hemoglobin Concent 34 g/dL (31-37) Red Cell Distribution Width 15.9 % (11.5-14.5) Platelet Count 366 x10^3/uL (140-400) Sodium Level 126 mmol/L (136-145) Potassium Level 4.1 mmol/L (3.5-5.1) Chloride Level 94 mmol/L (98-107) Carbon Dioxide Level 26 mmol/L (21-32) Anion Gap 6 (6-14) Blood Urea Nitrogen 7 mg/dL (8-26) Creatinine 1.1 mg/dL (0.7-1.3) Estimated GFR (Cockcroft-Gault) 68.3 Glucose Level 95 mg/dL (70-99) Calcium Level 7.7 mg/dL (8.5-10.1) Thyroid Stimulating Hormone (TSH) 2.987 uIU/mL (0.358-3.74) Test 03/28/20 11:27 03/28/20 16:20 03/28/20 21:20 03/29/20 07:53 Glucose (Fingerstick) 154 mg/dL (70-99) 176 mg/dL (70-99) 188 mg/dL (70-99) 165 mg/dL (70-99) Test 03/29/20 11:08 Glucose (Fingerstick) 129 mg/dL (70-99) Laboratory Tests Test 03/28/20 16:20 03/28/20 21:20 03/29/20 07:53 03/29/20 11:08 Glucose (Fingerstick) 176 mg/dL (70-99) 188 mg/dL (70-99) 165 mg/dL (70-99) 129 mg/dL (70-99) Problem List Problems Medical Problems: (1) Acute kidney injury Status: Acute (2) Encephalopathy Status: Acute (3) Hypoglycemia Status: Acute (4) Hyponatremia Status: Acute (5) Seizure Status: Acute Assessment/Plan liver abscess, s/p IR drain supportive care Justicifation of Admission Dx: Justifications for Admission: Justification of Admission Dx: Yes Sepsis: Bacteremia Altered Mental Status: Altered Mental Status CHARY HOOPER MD 03/29/20 1430: SURGICAL PROGRESS NOTE Assessment/Plan Agree with above MARÍA KRAUSE APRN Mar 29, 2020 12:32 CHARY HOOPER MD Mar 29, 2020 14:30
[2020-03-29] MEDS ORDERED: LIDOCAINE WITH 8.4% SOD BICARB 3 ML DISP.SYRIN. INJ ONE (14:00)
[2020-03-29 15:00] VITALS: BP 110/54
--- NOTE | 2020-03-29 15:17 | RAD ---
Procedure: Upper extremity PICC line placement Clinical Indication: Adult male requiring central venous access Sedation: Local anesthesia only was provided Antibiotics: None Fluoro Time: 0.2 minutes, images: 1 Contrast: None Sterility: All elements of maximal sterile barrier technique including the use of a cap, mask, sterile gown, sterile gloves, large sterile sheet, appropriate hand hygiene, and 2% chlorhexidine for cutaneous antisepsis (or acceptable alternative antiseptic per current guidelines) were followed for this procedure. Consent: The procedure was explained in its entirety to the patient or the patients designated client relations representative by a member of the treatment team, including a discussion of the risks, benefits and commonly accepted alternatives to the procedure, as well as the expected consequences of no therapy whatsoever. Discussion of the risks included, but was not limited to, those that are most frequent and those that are rare but possibly severe or life-threatening, as well as the possibility of unforeseen complications. Technique and Findings: Following informed consent, the patient was prepped and draped in the usual sterile fashion. Ultrasound interrogation of the right arm revealed patency and compressibility of the right basilic vein. A hard copy ultrasound image was recorded. 1% Lidocaine was used to achieve local anesthesia and a 21-gauge micropuncture needle was used to gain access to the targeted vein. The needle was exchanged over wire for a 5 [place] peel-away sheath which was used to deploy a PICC line under fluoroscopic guidance such that the distal tip resided at the cavoatrial junction. The catheter flushed and aspirated with ease and was sutured to the skin. Complications: No immediate Impression: 1. Ultrasound guided PICC line placement as described.
--- NOTE | 2020-03-29 19:19 | NUR ---
Discharge Note: Patient was discharged transferred to [facility]. Patient was discharged with the new Right Upper Arm PICC that was placed today. Patient also discharged with Right upper quad JULIA drain. Patients wounds were pictured and changed by wound care yesterday, no need to change today. Patient and family aware of discharge plans and agreeable. This RN called report to [facility] and report was given via phone to CYNDIE Soni. Patient was transferred with all personal belongings via wheelchair van through [facility]. All discharge paperwork was sent to facility.
--- NOTE | 2020-04-26 15:54 | DS ---
DATE OF DISCHARGE: 03/29/2020 ADMISSION DIAGNOSES: Found down, hypoglycemia, encephalopathy, hyponatremia, hypoxia, abnormal chest x-ray with volume overload, possible pneumonia, acute kidney injury, sepsis, history of renal cell carcinoma with left nephrectomy, diabetes, hypertension, and hyperlipidemia. DISCHARGE DIAGNOSES: Gastrointestinal bleed, hyponatremia, hepatic mass, history of renal cell carcinoma, recent placement of percutaneous biliary drain, resolving sepsis, gram-negative bacteremia, resolving metabolic encephalopathy, COPD, peptic ulcer disease, biliary stent, chronic kidney disease, cavernous hemangioma, acute on chronic systolic and diastolic heart failure, chronic pain. Liver abscess with drain placement. CONSULTS: Dr. Brewster, Dr. Al, Dr. Evans, Nephrology; Dr. Caputo, Dr. Ndiaye and Dr. Abdifatah Hameed and Dr. Manuel. HOSPITAL COURSE: The patient is a pleasant middle-aged male, who presented with mental status change, was found down and had a glucose of 50. He was admitted. The above consults were obtained. We discovered liver abscess. We placed a drain. We gave the patient IV antibiotics, corrected his electrolytes and over the next 10 days, he improved, but was very sick still, he needed to go to long-term acute care. We discharged to [facility]. DISPOSITION: [facility]. ACTIVITY: As tolerated. DIET: Renal. MEDICATIONS: Please see the MRAD. TOTAL TIME: 31 minutes. JACEY VALIENTE DO DR: FIORELLA/ana JOB#: [id number] / [id number]
== END 2020-03-29 19:25 | DRG 853 ==
LOC: ER 19:07 → INTOOBSV 21:20 → ED HOLD 21:20 → 1 WEST ICU 22:13 → 5 NORTH 03-17 18:30 → OBSVTOIN 03-18 14:05 → 1 WEST ICU 03-18 14:27 → 4 NORTH 03-22 17:33 → 1 WEST ICU 03-24 12:59 → 5 NORTH 03-26 20:25
PROVIDERS: ADMIT Family Medicine; ATTEND Family Medicine
PROC: 5A09357 Assistance with Respiratory Ventilation, Less than 24 Consecutive Hours, Continuous Positive Airway Pressure (ICD-10-PCS; 2020-03-18)
PROC: 30233N1 Transfusion of Nonautologous Red Blood Cells into Peripheral Vein, Percutaneous Approach (ICD-10-PCS; 2020-03-19)
PROC: 0JBR0ZZ Excision of Left Foot Subcutaneous Tissue and Fascia, Open Approach (ICD-10-PCS; 2020-03-19)
PROC: 0JBQ0ZZ Excision of Right Foot Subcutaneous Tissue and Fascia, Open Approach (ICD-10-PCS; 2020-03-19)
PROC: 0F9030Z Drainage of Liver with Drainage Device, Percutaneous Approach (ICD-10-PCS; principal; 2020-03-22)
PROC: 02HV33Z Insertion of Infusion Device into Superior Vena Cava, Percutaneous Approach (ICD-10-PCS; 2020-03-29)
PROC: B5181ZA Fluoroscopy of Superior Vena Cava using Low Osmolar Contrast, Guidance (ICD-10-PCS; 2020-03-29)
PROC: B548ZZA Ultrasonography of Superior Vena Cava, Guidance (ICD-10-PCS; 2020-03-29)
DX: A41.51 Sepsis due to Escherichia coli [E. coli] (principal); G93.41 Metabolic encephalopathy; I50.33 Acute on chronic diastolic (congestive) heart failure; J96.01 Acute respiratory failure with hypoxia; K75.0 Abscess of liver; C64.9 Malignant neoplasm of unspecified kidney, except renal pelvis; E87.1 Hypo-osmolality and hyponatremia; E46 Unspecified protein-calorie malnutrition; I13.0 Hypertensive heart and chronic kidney disease with heart failure and stage 1 through stage 4 chronic kidney disease, or unspecified chronic kidney disease; I24.8 Other forms of acute ischemic heart disease; J98.11 Atelectasis; K55.9 Vascular disorder of intestine, unspecified; N17.9 Acute kidney failure, unspecified; K92.2 Gastrointestinal hemorrhage, unspecified; D50.0 Iron deficiency anemia secondary to blood loss (chronic); D69.6 Thrombocytopenia, unspecified; E11.22 Type 2 diabetes mellitus with diabetic chronic kidney disease; E11.649 Type 2 diabetes mellitus with hypoglycemia without coma; E78.00 Pure hypercholesterolemia, unspecified; E78.5 Hyperlipidemia, unspecified; F41.9 Anxiety disorder, unspecified; G89.29 Other chronic pain; J44.9 Chronic obstructive pulmonary disease, unspecified; K21.9 Gastro-esophageal reflux disease without esophagitis; K40.20 Bilateral inguinal hernia, without obstruction or gangrene, not specified as recurrent; K59.00 Constipation, unspecified; M47.816 Spondylosis without myelopathy or radiculopathy, lumbar region; M51.36 Other intervertebral disc degeneration, lumbar region; N18.3 Chronic kidney disease, stage 3 (moderate); R32 Unspecified urinary incontinence; R56.9 Unspecified convulsions; R65.20 Severe sepsis without septic shock; S51.012A Laceration without foreign body of left elbow, initial encounter; Z20.828 Contact with and (suspected) exposure to other viral communicable diseases; Z66 Do not resuscitate; E11.40 Type 2 diabetes mellitus with diabetic neuropathy, unspecified; M19.90 Unspecified osteoarthritis, unspecified site; E11.621 Type 2 diabetes mellitus with foot ulcer; L97.529 Non-pressure chronic ulcer of other part of left foot with unspecified severity; L97.519 Non-pressure chronic ulcer of other part of right foot with unspecified severity; R16.0 Hepatomegaly, not elsewhere classified; D18.09 Hemangioma of other sites; M54.9 Dorsalgia, unspecified; W18.11XA Fall from or off toilet without subsequent striking against object, initial encounter; Y92.238 Other place in hospital as the place of occurrence of the external cause; Z78.1 Physical restraint status; Z79.891 Long term (current) use of opiate analgesic; Z82.49 Family history of ischemic heart disease and other diseases of the circulatory system; Z83.3 Family history of diabetes mellitus; Z87.11 Personal history of peptic ulcer disease; Z88.1 Allergy status to other antibiotic agents; Z90.49 Acquired absence of other specified parts of digestive tract; Z90.5 Acquired absence of kidney; Z88.5 Allergy status to narcotic agent; Z88.8 Allergy status to other drugs, medicaments and biological substances; Y93.89 Activity, other specified; Y99.8 Other external cause status; Z68.26 Body mass index [BMI] 26.0-26.9, adult
CPT/HCPCS: 36415; 36573; 36600; 49406; 51702; 70450; 71045; 71250; 72128; 72131; 73070; 74176; 76705; 77001; 78278; 80048; 80053; 80076; 80307; 81001; 82105; 82140; 82378; 82550; 82728; 82805; 82962; 83540; 83550; 83605; 83735; 83880; 84100; 84295; 84443; 84484; 85007; 85018; 85025; 85027; 85379; 85384; 85610; 85730; 86301; 86850; 86900; 86901; 86920; 87015; 87040; 87071; 87075; 87076; 87077; 87102; 87116; 87186; 87205; 93005; 93306; 93970; 94640; 94660; 94760; 96365; 96372; 96374; 96375; 99152; 99153; 99291; A9560; C1729; C1751; C1892; C1894; C9113; G0378; G0379; J0696; J1170; J1200; J1630; J1644; J1815; J1885; J1940; J2060; J2185; J2250; J2543; J2930; J3010; J3475; J3490; J7030; J7042; P9016; P9045; J7626; U0003-CS

== ENCOUNTER → 2020-05-25 | Outpatient (CLI) | payer MEDICARE ==
[2020-04-15 11:00] VITALS: BP 122/76
[~2020-05-25] MED LIST changes: +ETOD400T PO; +INSU100V8 SQ; +METO25TA4 PO; +ONDA8TAB17 PO; +OXYC15TA3 PO
--- NOTE | 2020-05-25 11:54 | KCIC ---
Right groin ultrasound INDICATION: Right groin pain with intermittent bulging. COMPARISON: Abdomen pelvis CT of 04/12/2020. FINDINGS: With Valsalva, bulging in the area of patient's reported clinical concern is observed and appears to occur within the proximal thigh musculature. 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 It may be helpful to reimage this area when the patient is next symptomatic was able to reproduce such bulging during MRI of the pelvis tailored to include the area of concern with and without Valsalva to confirm these findings if they would be of help in clinical management. There is no evidence of a soft tissue neoplastic mass or adenopathy currently. Continued clinical follow-up recommended. Electronically signed by: Shelly De La Rosa MD (05/25/2020 11:51 AM) [id number]
== END ==
LOC: KCIC US 10:29
PROVIDERS: ATTEND Family Medicine
DX: R10.31 Right lower quadrant pain (principal)
CPT/HCPCS: 76881

== ENCOUNTER → 2020-08-01 | Outpatient (CLI) | payer MEDICARE ==
[2020-04-15 11:00] VITALS: BP 122/76
[~2020-08-01] MED LIST changes: +AMLO-187 PO; -AMLO10TA8 PO
--- NOTE | 2020-08-01 13:39 | KCIC ---
BRAIN W/O CONTRAST Date: 08/01/2020 12:30 PM Indication: Reason: MEMORY LOSS / Spl. Instructions: CT done in February after fall while an inpatient. / History: Memory loss since a fall with head trauma in February 2020. Comparison: CT head 03/18/2020. Technique: Multiplanar multisequence MRI of the brain was performed without intravenous contrast using the standard protocol. Findings: No acute infarct. No acute or chronic hemorrhage. The ventricles are normal in size and configuration without hydrocephalus. Mild scattered FLAIR hyperintensities in the subcortical and periventricular deep white matter, a nonspecific finding, most commonly seen with chronic small vessel ischemic disease. Mild generalized cerebral volume loss. The scalp and calvarium are normal. The pituitary and sella are normal. No Chiari malformation. The visualized upper cervical spine is normal. The visualized orbits and globes are normal. The visualized paranasal sinuses are clear. The mastoid air cells are clear. Normal flow voids within the vertebral, basilar, and internal carotid arteries indicating patency. IMPRESSION: 1. No acute infarct, hemorrhage, mass, or hydrocephalus. 2. Mild chronic small vessel ischemic disease and age-appropriate cerebral volume loss. Electronically signed by: Luis Carlos Hernandez MD (08/01/2020 1:36 PM) [id number]
== END ==
LOC: KCIC MRI 12:16
PROVIDERS: ATTEND Nurse Practitioner Family
DX: R41.3 Other amnesia (principal)
CPT/HCPCS: 70551

== ENCOUNTER → 2020-09-01 | Outpatient (CLI) | payer MEDICARE ==
[2020-04-15 11:00] VITALS: BP 122/76
[~2020-09-01] MED LIST changes: +ASPI325T11 PO; -ETOD400T PO; +ETOD400T3 PO; +FERR236T2 PO; +GUAI600T47 PO; +INSU100V6 SQ; +PANT40TA77 PO; +SEMA0.25 SQ
--- NOTE | 2020-09-01 12:14 | RAD ---
EXAM: Chest, 2 views. HISTORY: Pleural effusion. COMPARISON: 03/28/2020 FINDINGS: 2 views of the chest are obtained. There has been resolution of a previously demonstrated p leural effusion. There is no consolidation. There is no pneumothorax. The heart is normal in size. Th ere is proximal right humeral internal fixation instrumentation. There are calcified granulomas. IMPRESSION: No acute pulmonary finding. Electronically signed by: Kriss Rosa MD (09/01/2020 12:12 PM) [id number]
== END ==
LOC: RAD 11:08
PROVIDERS: ATTEND Internal Medicine Critical Care Medicine
DX: J90 Pleural effusion, not elsewhere classified (principal)
CPT/HCPCS: 71046

== ENCOUNTER → 2020-09-26 | Outpatient (CLI) | payer MEDICARE ==
[2020-04-15 11:00] VITALS: BP 122/76
[2020-09-26 09:31] LABS: BASO # 0.1 x10^3/uL (0.0-0.2); BASO % 1 % (0-3); EOS # 0.2 x10^3/uL (0.0-0.7); EOS % 3 % (0-3); HEMATOCRIT 40.2 % (39.0-53.0); HEMOGLOBIN 13.5 g/dL (13.0-17.5); LYMPH # 1.2 x10^3/uL (1.0-4.8); LYMPH % 20 % (24-48); MEAN CORPUSCULAR HEMOGLOBIN 30 pg (25-35); MEAN CORPUSCULAR HGB CONC 34 g/dL (31-37); MEAN CORPUSCULAR VOLUME 90 fL (79-100); MONO # 0.4 x10^3/uL (0.0-1.1); MONO % 6 % (0-9); NEUT # 4.2 x10^3/uL (1.8-7.7); NEUT % 70 % (31-73); PLATELET COUNT 215 x10^3/uL (140-400); RED BLOOD COUNT 4.47 x10^6/uL (4.30-5.70); RED CELL DISTRIBUTION WIDTH 15.2 % (11.5-14.5)
[2020-09-26 09:46] LABS: PROTHROMBIN TIME PATIENT 12.2 SEC (11.7-14.0)
[2020-09-26 09:57] LABS: ALBUMIN 3.6 g/dL (3.4-5.0); ANION GAP 6 (6-14); BLOOD UREA NITROGEN 24 mg/dL (8-26); CALCIUM 9.5 mg/dL (8.5-10.1); CARBON DIOXIDE 30 mmol/L (21-32); CHLORIDE 100 mmol/L (98-107); CREATININE 1.2 mg/dL (0.7-1.3); GFR 61.6; GLUCOSE 141 mg/dL (70-99); POTASSIUM 4.9 mmol/L (3.5-5.1); SODIUM 136 mmol/L (136-145)
[2020-09-26 09:58] LABS: C-REACTIVE PROTEIN < 0.5 mg/L (0-3.3)
--- NOTE | 2020-09-26 12:27 | EKG ---
[facility] [address] [place] [address] Test Date: 2020-09-26 Test Time: 12:21:09 Pat Name: LASHAY MRAQUEZ Department: Room: Gender: M Emergency Communications Dispatcher: : 1960 Requested By: SHELLEY RG Order Number: [id number] Reading MD: Ricardo Bustamante MD Measurements Intervals [place] Rate: 79 P: 0 FL: 202 QRS: -19 QRSD: 82 T: 56 QT: 370 QTc: 425 Interpretive Statements SINUS RHYTHM Electronically Signed On 09-26-2020 14:36:44 QA SPECIALIST by Ricardo Bustamante MD
[2020-09-27 02:08] LABS: HEMOGLOBIN A1C 6.3 % (4.8-5.6)
== END ==
LOC: SURGPAT 12:31
PROVIDERS: ATTEND Orthopaedic Surgery
DX: Z01.818 Encounter for other preprocedural examination (principal); M17.12 Unilateral primary osteoarthritis, left knee
CPT/HCPCS: 36415; 80048; 82040; 82306; 83036; 85025; 85610; 85730; 86140; 87641; 93005

== ENCOUNTER → 2020-10-13 | Outpatient (CLI) | payer MEDICARE, OTHER ==
[2020-04-15 11:00] VITALS: BP 122/76
[~2020-10-13] MED LIST changes: -ASPI325T11 PO; +ETOD400T PO; -ETOD400T3 PO
== END ==
LOC: LAB 11:25
PROVIDERS: ATTEND Orthopaedic Surgery
DX: Z01.812 Encounter for preprocedural laboratory examination (principal); Z20.822 Contact with and (suspected) exposure to COVID-19; M17.12 Unilateral primary osteoarthritis, left knee
CPT/HCPCS: U0003

== ENCOUNTER → 2021-07-06 | Outpatient (CLI) | payer MEDICARE, OTHER ==
[2020-10-20 15:16] VITALS: BP 132/90
[~2021-07-06] MED LIST changes: +ACET1TAB33 PO; +ASPI-630 PO; +ASPI325T11 PO; +CHOL500050 PO; -DULO60CA6 PO; +DULO60CA7 PO; +EMPA10TA PO; -ETOD400T PO; +ETOD400T3 PO; +ONDA-85 PO; -ONDA8TAB17 PO; +SAW/1TAB2 PO; +TIZA-75 PO; -TIZA4TAB2 PO; +tylenol
== END ==
LOC: LAB 11:02
PROVIDERS: ATTEND Podiatrist
DX: M79.671 Pain in right foot (principal); Z79.899 Other long term (current) drug therapy
CPT/HCPCS: 36415; 82306; 82652

== ENCOUNTER 2021-07-12 07:20 | Day surgery (SDC) | payer MEDICARE, OTHER ==
[~2021-07-12] VITALS: Ht 177.8 cm; Wt 90.9 kg
[~2021-07-12 07:20] MED LIST changes: -ACET1TAB33 PO; -ASPI-630 PO; +HYDROmorphone 2 MG/ML VIAL IVP PRN; +IV RINGERS,LACTATED 1000ML 1,000 ML IV SCH; +MORPHINE SULFATE 2 MG/ML INJ. IVP PRN; +PROCHLORPERAZINE 10 MG/2 ML VIAL. IVP PRN; +fentaNYL PF VIAL 100 MCG/2 ML VIAL IVP PRN; -tylenol
--- NOTE | 2021-07-12 07:39 | PDOC1 ---
History and Physical Date of Service: DOS: DATE: 07/12/21 TIME: 07:35 History of Present Illness: HPI: Patient is a 61yo WM seen in Pre-Op today for right foot surgery. Patient reports that he has flat feet and achilles contracture necessating the surgery. He denies an cardiac history, CVA. Patient does have diabetes on home insulin, most recent A1C of 5.9. He also does have a history of RCC which led to unilateral nephrectomy. Most recent Cr normal. Past Medical/Surgical History: PMH/PSH: HTN, RCC Allergies: Allergies: Coded Allergies: clindamycin (Verified Allergy, Intermediate, Rash, 07/11/21) latex (Verified Allergy, Intermediate, Rash, 07/11/21) levofloxacin (Verified Allergy, Intermediate, Unknown, 07/11/21) morphine (Verified Allergy, Intermediate, URINARY RETENTION, 07/11/21) prednisone (Verified Allergy, Intermediate, ALTERED MENTAL STATUS, 07/11/21) adhesive tape (Verified Adverse Reaction, Intermediate, Rash, 07/11/21) tears off skins pramipexole (Verified Adverse Reaction, Intermediate, muscle and joint aches, 07/11/21) Family History: Family History: HTN Social History: Social History: Denies alcohol tobacco drug use Current Medications: Current Medications Current Medications Fentanyl Citrate (Fentanyl 2ml Vial) 25 mcg PRN Q5MIN PRN IVP MILD PAIN 1-3; Start 07/12/21 at 06:00; Stop 07/13/21 at 05:59 Fentanyl Citrate (Fentanyl 2ml Vial) 50 mcg PRN Q5MIN PRN IVP MODERATE PAIN 4- 6; Start 07/12/21 at 06:00; Stop 07/13/21 at 05:59 Morphine Sulfate (Morphine Sulfate) 1 mg PRN Q10MIN PRN IVP SEVERE PAIN 7-10; Start 07/12/21 at 06:00; Stop 07/13/21 at 05:59 Ringer's Solution 1,000 ml @ 30 mls/hr Q24H IV ; Start 07/12/21 at 06:00; Stop 07/12/21 at 17:59 Hydromorphone HCl (Dilaudid) 0.5 mg PRN Q10MIN PRN IVP SEVERE PAIN 7-10, 2nd CHOICE; Start 07/12/21 at 06:00; Stop 07/13/21 at 05:59 Prochlorperazine Edisylate (Compazine) 5 mg PACU PRN PRN IVP NAUSEA, MRX1; Start 07/12/21 at 06:00; Stop 07/13/21 at 05:59 Cefazolin Sodium/ Dextrose 50 ml @ 100 mls/hr 1X PREOP PRN IV PRIOR TO PROCEDURE; Start 07/12/21 at 06:00; Stop 07/12/21 at 18:00 Active Scripts Active Reported Tizanidine Hcl 4 Mg Tablet 4 Mg PO TID PRN Prostate Health Caplet (Saw/Vit E/Sod Laverne/Lyc/Beta/Pyg) 1 Each Tablet 1 Each PO BID Etodolac 400 Mg Tablet 400 Mg PO PRN PRN Jardiance (Empagliflozin) 10 Mg Tablet 10 Mg PO DAILY Vitamin D3 (Cholecalciferol (Vitamin D3)) 1,250 Mcg Capsule 1,250 Mcg PO WEEKLY Ozempic (Semaglutide) 0.25 Mg/0.2 Ml Pen.injctr 0.25 Mg SQ WEEKLY Pantoprazole Sodium (Pantoprazole Sodium) 40 Mg Tablet. 40 Mg PO DAILYAC Humalog (Insulin Lispro) 100 Unit/1 Ml Vial 10 Unit SQ TIDAC Atenolol 25 Mg Tablet 25 Mg PO DAILY Montelukast Sodium Tablet (Montelukast Sodium) 10 Mg Tablet 10 Mg PO DAILY Atorvastatin Calcium 20 Mg Tablet 1 Tab PO HS Lidoderm (Lidocaine) 700 Mg Adh..patch 1 Patch TP DAILY PRN Amlodipine Besylate 10 Mg Tablet 5 Mg PO DAILY Voltaren (Diclofenac Sodium) 100 Gm Gel..gram. 1 Gm TP QID PRN Ventolin Hfa Inhaler (Albuterol Sulfate) 18 Gm Hfa.aer.ad 2 Puff IH PRN Q4-6HRS Cymbalta (Duloxetine Hcl) 60 Mg Capsule. 60 Mg PO BID ROS: Review of Systems Review of System REVIEW OF SYSTEMS: GENERAL: Denies weakness SKIN: No bruising, hair changes or rashes. EYES: No blurred, double or loss of vision. NOSE AND THROAT: No history of nosebleeds, hoarseness or sore throat. HEART: No history of palpitations, chest pain or shortness of breath on exertion. LUNGS: Denies cough, hemoptysis, wheezing or shortness of breath. GASTROINTESTINAL: Denies changes in appetite, nausea, vomiting, diarrhea or constipation. GENITOURINARY: No history of frequency, urgency, hesitancy or nocturia. NEUROLOGIC: Denies history of numbness, tingling, or tremor. PSYCHIATRIC: No history of panic, anxiety or depression. ENDOCRINE: No history of heat or cold intolerance, polyuria or polydipsia. EXTREMITIES: Denies joint pain, pain on walking or stiffness. Physical Exam: Physcial Exam: GEN: No apparent distress. Alert and oriented HEENT: Normal cephalic, atraumatic, external auditory canals are patent EYES: Extraocular muscles are intact, pupil are equally round and reactive to light and accommodation MUSCULOSKELETAL: Well developed , well nourished, good range of motion ENDOCRINE: No thyromegaly was palpated LYMPHATICS: No cervical chain or axillary nodes were noted HEMATOPOIETIC: No bruising NECK: Supple, no JVD, no thyromegaly was noted LUNGS: Clear to auscultation in all lung vargas without rhonchi or wheezing HEART: RRR, S!, S2 present. Peripheral pulses intact, no obvious murmurs noted ABDOMEN: Soft, nontender. Positive bowel sounds, no organomegaly, normal bowel sounds EXTREMITIES: Without clubbing, cyanosis, or edema. Pedal pulses intact. NEUROLOGIC: Normal speech and tone. A&O x 3, moves all extremities, no obvious focal deficits PSYCHIATRIC: Normal affect, normal mood. Stable SKIN: No ulcerations or rashes, good skin turgor, no jaundice VASCULAR: Good capillary refill, neurovascular bundle appears to be intact Assessment/Plan Assessment/Plan Patient seen in Pre-op today prior to RLE surgery. Ok to proceed with surgery from hospitalist perspective. Dean score of 1. Justifications for Admission Other Justification GREGORIO LEVINE MD Jul 12, 2021 07:39
[2021-07-12] MEDS ORDERED: BUPIVACAINE MPF 0.25% 30 ML VIAL. ONE (09:45)
[2021-07-12] MEDS ORDERED: MIDAZOLAM HCL/PF 2 MG/2 ML VIAL. ONE (09:51)
[2021-07-12] MEDS ORDERED: DEXAMETHASONE SOD PHOS 4 MG/ML VIAL ONE (09:51)
[2021-07-12] MEDS ORDERED: ONDANSETRON PF 4 MG/2 ML VIAL. ONE (09:51)
[2021-07-12] MEDS ORDERED: ROCURONIUM 50 MG/5 ML VIAL. ONE (09:51)
[2021-07-12] MEDS ORDERED: PROPOFOL 10 MG/ML (20ML) VIAL. IV ONE (09:51)
[2021-07-12] MEDS ORDERED: fentaNYL PF VIAL 100 MCG/2 ML VIAL ONE ×2 (09:51→11:13)
[2021-07-12] MEDS ORDERED: LIDOCAINE 2% PF 5 ML VIAL. ONE (09:51)
[2021-07-12] MEDS ORDERED: PHENYLEPHRINE in 0.9% NACL PF 1 MG/10 ML SYRINGE. IV ONE (10:50)
[2021-07-12] MEDS ORDERED: ePHEDrine PF IN SALINE 50 MG/10 ML SYRINGE. IV ONE (11:10)
[2021-07-12] MEDS ORDERED: VASOPRESSIN 20 UNIT/ML VIAL. ONE (11:23)
[2021-07-12] MEDS ORDERED: HYDROmorphone 2 MG/ML VIAL ONE (12:45)
[2021-07-12] MEDS ORDERED: VANCOMYCIN 1 GM VIAL. ONE (13:05)
[2021-07-12] MEDS ORDERED: SEVOFLURANE > 120 MINUTES. IH ONE (13:58)
--- NOTE | 2021-07-12 14:28 | PDOC4 ---
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 Passive ankle joint dorsiflexion with knee extended was noted at -10 degrees, -5-10 degrees with knee flexed. Relatively soft bone throughout the rear foot along the surgical sites. After subtalar joint and TN joint fusion, the lateral column and CC joint was decompressed with noticeable a joint space. Complications: None Operative Note: Under mild sedation, patient was brought into the operating room and placed on the operative table in a supine position. A formal timeout was performed to confirm patient's identity, procedure and procedure site. Following IV prophylactic antibiotics and general anesthesia induction, a well-padded right thigh tourniquet was placed. The right lower extremity was then scrubbed, prepped and draped using aseptic techniques. Intraoperative x-ray was utilized to provisionally clarisse and plan for the medial incision by marking out the subtalar facet, TNJ, medial midline distal tibia. The attention was first directed to the distal posterior Achilles. Because preoperative ankle equinus was noted, the decision was made to perform a LASHANDA. At 2, 5, 8 centimeter proximal to the Achilles insertion site, a stab incision was made with a Cataño blade where the medial, lateral, medial half of the Achilles was released, respectively, to allow adequate ankle dorsiflexion and aid calcaneal translation later. The surgical site was irrigated with copious saline solution and then closed with 3-0 nylon. Then the right lower extremity was then exsanguinated and the pressure cuff was inflated to 250 millimercury. A linear incision was carried out approximately 0.5 cm distal from the distal medial malleolus extending from the posterior subtalar facet anteriorly to the navicular cuneiform joint. The incision was carried deep with a combination of sharp and blunt dissection with care to protect and retract all the neurovascular bundles. At this time, superficial deltoid ligament and deep fascia was encountered and then incised along the PT tendon sheath to allow adequate joint visualization and also avoid neurovascular bundle violation posterior and plantar to the FDL. At this time, mild straw-colored synovitic f luid was noticed from the PT tendon sheath. The PT tendon was moderately degenerated with a split tear approximately 2 cm proximal from the insertion site. The degenerated PT tendon, less than 50%, was excised as it was not salvageable and was in the visual field of subtalar joint preparation. Then the FDL was identified just plantar to the PT tendon and it was mobilized plantarly to gain access to the subtalar joint. The subtalar joint was established and the joint capsule was incised including the deep deltoid ligament. The TCL was incised with a rongeur and the joint access was gained with a smooth lamina plant taxonomy teacher. Intraoperative findings was remarkable for mild erosive changes across the subtalar articular surface. The articular cartilage across the posterior, middle and anterior subtalar joint was denuded with a combination of a rongeur, an osteotome, a curette and a bur. Copious saline solution was used to irrigate the fusion site. Subchondral fenestration was achieved with a combination of 2 mm drill bit and a small osteotome. Paprika sign was appreciated across the fusion site. Then the attention was directed to the TNJ where a medial dorsal linear capsulotomy was achieved with a #15 blade, just superior to the PT tendon course. The periosteum was elevated dorsally across the TNJ with a bone elevator and care to protect and retract all the dorsal lateral neurovascular bundles. A coaxial capsulotomy across the TNJ was carried out and the dorsal and plantar capsular ligament was incised to gain visualization across the entire articular surface. Again, smooth lamina plant taxonomy teacher was engaged to maintain the joint visualization. Articular cartilage was denuded with a combination of a rongeur, an osteotome, curette and a bur. Subchondral fenestration was achieved with a combination of 2 mm drill bit and a small osteotome. Copious saline solution was used to irrigate the fusion site. Paprika sign was appreciated across the fusion site. Then the tension was directed to the distal medial malleolus at the midline approximately 5 cm proximal to the ankle joint line. A 1.5 millimeter linear skin incision was made and the incision was carried deep to the periosteum layer with a [place]ster. Following the manufacture protocol, a corticotomy was performed with an 8mm broach and advanced to approximately 1 cm laterally. Then using the guidance of the intraoperative x-ray, a 6 mm bone harvester was introduced to the medial surface of the malleolus advanced and laterally to the cancellous canal without penetrating or violating the lateral cortex or posterior cortex. Approximately 15 cc of cancellous bone/BMA was harvested from the distal medial malleolus. Then the donor site was irrigated with saline and then closed in layers with 4-0 Monocryl and 4-0 nylon. The subtalar joint was reduced and a temporarily fixed with 2 guidepins for 7 mm screws from distal posterior calcaneus to dorsal talar body/neck margin, and anterior talar neck/ head intraoperative x-ray remarked adequate samaritan of the calcaneal height, apposition across the subtalar joint, satisfactory hardware position within the calcaneal body without violating the tarsal tunnel. The posterior distal calcaneal skin was incised at the guidewire sites and carried to deep bluntly to the periosteum layer. Using standard AO technique, two 7 mm partially-threaded, cannulated screws were placed over the guidepins to compress and stabilize the subtalar joint. Adequate hardware position, length were verified on x-ray. Then approximately 6 cc of cancellous bone/BMA was impacted into the subtalar joint for adequate apposition and augment osseous union. At this time, tourniquet was deflated at 2 hours and 5 minutes Clarisse. Hemostasis was achieved with compression using Esmarch and also Bovie. There was no pu lsating bleeders. The surgical field was visualized after saline irrigation. The TNJ was reduced using windlass maneuver and then temporarily fixated with K wires. Proper x-ray remarked adequate to TNJ apposition, restored Meary's angle and Josue's angle. Then a Turner 5 hole plate was placed over the dorsal medial aspect of the TNJ. Using standard AO technique, a combination of locking and nonlocking 3.5 millimeter screws were used to compress and fixate the TNJ with an intraplate compression slot. Intraoperative x-ray remarked adequate hardware position, apposition across the TNJ without violating the surrounding particular surfaces. The dorsal lateral distal screw was noted close to the proximal margin of the navicular articular facet however not to violate the joint, based on the intraoperative x-ray. There was no gapping across the fusion site after screw placement. The screw was also a locking screw into the plate. The tourniquet was reinflated to 250 mmHg after 20 minutes of downtime. Then approximately 9 cc of cancellous bone/BMA was impacted across the fusion site to encourage adequate union. Then the deltoid and deep tissue capsule was repaired with 2-0 FiberWire. The decision was made against transferring the FDL for PT tendon rupture as the literature has documented 90% offloading across the PT tendon with TNJ fusion. The surgical site was irrigated with copious saline. Then all the surgical sites were closed in layers with 3-0 Vicryl, 4 Monocryl, 4-0 nylon. 10 cc of 0.5% Marcaine plain was used for postoperative anesthesia augmentation. The surgical sites were then dressed with Betadine soaked Adaptic, 4 x 4 gauze. A well-padded Moreno compression splint was applied to the right lower extremity. Tourniquet was deflated and adequate digital perfusion was noted. Patient tolerated anesthesia and procedure well with neurovascular status intact to the surgical lower extremity. Patient will be transferred to PACU for continuous recovery. Pending right lower extremity ankle and foot x-ray and a popliteal block. JONO BELTRAN DPM Jul 12, 2021 14:28
[2021-07-12] MEDS ORDERED: ACETAMINOPHEN 325 MG TABLET. PO ONE (14:30)
[2021-07-12] MEDS ORDERED: oxyCODONE/APAP 5/325 1 TAB TABLET PO ONE (14:30)
[2021-07-12] MEDS ORDERED: DEXTROSE 50% 25 GM / 50ML DISP.SYRIN. IV PRN (14:30)
[2021-07-12] MEDS ORDERED: ONDANSETRON PF 4 MG/2 ML VIAL. IVP PRN (14:30)
[2021-07-12] MEDS ORDERED: ROPIVacaine 0.5% PF 20 ML VIAL. ONE (14:32)
[2021-07-12] MEDS ORDERED: IV NORMAL SALINE 1000ML BAG 1,000 ML IV SCH (14:45)
[2021-07-12] MEDS ORDERED: ACETAMINOPHEN/CODEINE 300/30MG TABLET. PO ONE (15:00)
[2021-07-12] MEDS ORDERED: ASPI-630 PO (15:01)
[2021-07-12] MEDS ORDERED: tylenol (15:03)
[2021-07-12] MEDS ORDERED: ACET1TAB33 PO (15:05)
--- NOTE | 2021-07-12 15:08 | RAD ---
EXAM: Right ankle, 3 views; right foot, 3 views. HISTORY: Postoperative evaluation. COMPARISON: 07/06/2021 FINDINGS: 3 views of the right foot and ankle are obtained. There is external casting material which limited evaluation of bony detail. There is instrumented fusion of the subtalar joint. There is a mod erate plantar spur. There is enthesopathy at the Achilles tendon insertion. The ankle mortise is inta ct. There is moderate midfoot and hindfoot degenerative spurring and subchondral sclerosis. IMPRESSION: 1. Interval instrumented fusion of the subtalar joint. 2. Moderate mid and hindfoot osteoarthritis and moderate plantar spur. 3. External casting material, limiting evaluation of bony detail. Electronically signed by: Kriss Rosa MD (07/12/2021 3:06 PM) [id number]
[2021-07-12 15:25] VITALS: BP 119/76
[2021-07-13] MEDS ORDERED: BISACODYL 10 MG SUPP.RECT. PR PRN (16:00)
== END 2021-07-12 16:00 | disposition home or self-care (01) ==
LOC: SURG 07:20
PROVIDERS: ATTEND Podiatrist
DX: M25.571 Pain in right ankle and joints of right foot (principal); M19.071 Primary osteoarthritis, right ankle and foot; M21.41 Flat foot [pes planus] (acquired), right foot; M21.6X1 Other acquired deformities of right foot; I12.0 Hypertensive chronic kidney disease with stage 5 chronic kidney disease or end stage renal disease; N18.30 Chronic kidney disease, stage 3 unspecified; J44.9 Chronic obstructive pulmonary disease, unspecified; E78.00 Pure hypercholesterolemia, unspecified; F32.9 Major depressive disorder, single episode, unspecified; F41.9 Anxiety disorder, unspecified; G47.00 Insomnia, unspecified; Z98.890 Other specified postprocedural states; Z79.899 Other long term (current) drug therapy; Z85.528 Personal history of other malignant neoplasm of kidney; Z88.8 Allergy status to other drugs, medicaments and biological substances; Z90.49 Acquired absence of other specified parts of digestive tract
CPT/HCPCS: 20900; 27685; 28725; 28740; 73610; 73630; 82962; A4209; A4930; A6223; A6253; A6402; A6449; A6450; C1713; C1769; J0690; J1170; J2250; J2370; J2405; J2704; J2795; J3010; J3370; J3490; 76000; A6455; J1100